=== PATIENT | female | born 1975 | race Two or more races ===

== ENCOUNTER 2019-11-25 19:44 | Emergency (ER) | payer MEDICAID, SELFPAY ==
[2019-11-25 20:15] VITALS: BP 120/80; PULSE 92; RESP 16; TEMP 36.9; O2SAT 97; BMI 47.0
[2019-11-25 21:41] LABS: Basophils Percent Auto 0.3 % (0-2); Eosinophils Absolute Auto 0.1 X10*3/uL (0.0-0.4); MANUAL DIFF FLAG SCAN; Mean Corpuscular Volume 87.6 fL (80-98); PLT CLUMP 1; Red Cell Distribution Width 15.3 % (11.0-16.0); SCAN SMEAR FLAG 1
[2019-11-25 21:41] LABS: Glucose Urine UA NEG (NEG); Leukocyte Esterase Urine 1+ (NEG); Nitrite Urine POS (NEG); PH 5.5 (5.0-8.0); Specific Gravity - Urine 1.025 (1.005-1.025); Urine Blood NEG (NEG); Urine Ketones NEG (NEG); Urine Protein NEG (NEG-TRACE)
[2019-11-25 21:42] LABS: Appearance Urine HAZY; Color Urine YELLOW
[2019-11-25 21:43] LABS: Hematocrit 38.1 % (37-47); Hemoglobin 12.6 g/dl (12.0-16.0); Imm Gran Abs Auto 0.01 X10*3/uL (0.00-0.03); Imm Gran Pct Auto 0.2 % (0.0-0.4); Lymphocytes Absolute Auto 2.2 X10*3/uL (1.2-4.9); Lymphocytes Percent Auto 37.5 % (20-40); Mean Corpuscular HGB Conc 33.1 g/dl (31.0-35.0); Mean Platelet Volume 11.3 fL (9.4-12.3); Monocytes Absolute Auto 0.3 X10*3/uL (0.1-1.2); Monocytes Percent Auto 4.4 % (2-11); Neutrophils Absolute Auto 3.3 X10*3/uL (2.0-8.3); Neutrophils Percent Auto 55.6 % (45-73); Platelet Count 109 X10*3/uL (160-400); Red Blood Count 4.35 X10*6/uL (4.20-5.50); White Blood Count 5.9 X10*3/uL (4.8-10.8)
[2019-11-25 21:44] LABS: UPreg QC Valid YES; Urine Pregnancy NEGATIVE (NEGATIVE)
[2019-11-25 21:48] LABS: Bacteria Urine 2+ /LPF; RBC Urine 0 /HPF (0); Squamous Epithelial Cell Urine 3+ /LPF
[2019-11-25 21:49] LABS: INTERNATIONAL NORM RATIO 1.1 (0.9-1.1); Prothrombin Time 13.1 SEC (10.8-13.0)
[2019-11-25 21:51] LABS: Partial Thromboplastin Time 32.6 SEC (24.1-38.0)
--- NOTE | 2019-11-25 21:57 | CT_ITS ---
EXAMINATION: CT ABDOMEN AND PELVIS WITHOUT CONTRAST CLINICAL INFORMATION: Abdominal pain. Question kidney stones.? Pyelonephritis COMPARISON: CT abdomen and pelvis from [facility] 05/19/2019 TECHNIQUE: Multidetector volumetric imaging was performed from the superior aspect of the liver through the pubic symphysis. Sagittal and coronal reformatted images were obtained on the technologist's workstation. This CT examination was performed using dose optimization techniques as appropriate, variously including the following: *Automated exposure control *Adjustment of mA and/or kV according to patient size (this includes techniques or standardized protocols for targeted exams where dose is matched to indication/reason for exam; i.e. extremities or head) *Use of iterative reconstruction technique DLP: 1224 mGy-cm FINDINGS: LUNG BASES: Lung bases are clear. Again seen are prominent anterior epicardial lymph nodes, present previously. LIVER, GALLBLADDER, AND BILIARY TREE: Liver has a nodular contour suggesting cirrhosis. No focal liver lesion seen. Gallbladder surgically absent. No biliary ductal dilatation. PANCREAS: Unremarkable. SPLEEN: The spleen is enlarged measuring up to 15.8 cm anterior to posterior ADRENAL GLANDS: Unremarkable. KIDNEYS AND URETERS: 2 mm left upper pole cortical calcification. 4 mm left mid renal cortical calcification. 3 to 4 mm linear calcification in the left mid kidney. 2 to 3 mm left lower pole calcification. There are areas of left renal cortical thinning consistent with areas of scarring. No hydronephrosis. No right hydronephrosis or renal calculi seen. Neither ureter is dilated and there are no ureteral calculi. BLADDER: No focal bladder wall thickening or calculi. GASTROINTESTINAL TRACT: Stomach and small bowel are nondilated. Normal appendix. No colonic wall thickening or pericolonic changes. ABDOMINAL WALL: No significant hernia is appreciated. LYMPH NODES: There are numerous lymph nodes present. There are paraesophageal lymph nodes in image 15/94. Numerous prominent but not pathologically enlarged retroperitoneal lymph nodes are present. There are numerous prominent jack hepatis lymph nodes as well. Numerous subcentimeter central mesenteric lymph nodes are present. These were generally present on the prior study 05/19/2019 but appears slightly increased in number. VASCULAR: Normal caliber abdominal aorta. There are likely splenic and gastric varices. PELVIC VISCERA: Normal CT appearance of the uterus. There is a 6.3 cm cyst in the left ovary. This has simple fluid density. No concerning internal features seen. OSSEOUS STRUCTURES: Multilevel degenerative changes of the thoracolumbar spine are present. Severe L5-S1 facet arthropathy. IMPRESSION: The liver has a nodular contour suggesting underlying cirrhosis. The spleen is enlarged. There are splenic and gastric varices in keeping with portal hypertension. There are several left renal calcification, many of which are more likely parenchymal than urinary tract calculi. No hydronephrosis or hydroureter is seen. There are areas of left renal cortical thinning and scarring, better seen on the contrast-enhanced CT scan from [facility] 05/19/2019. Numerous prominent but not pathologically enlarged retroperitoneal, jack hepatis, and central mesenteric lymph nodes are present. These are nonspecific, possibly reactive.
[2019-11-25 22:07] LABS: SLIDE REVIEW VERIFIED
[2019-11-25 22:16] LABS: Alanine Aminotransferase 15 U/L (0-31); Albumin Level 3.5 g/dL (3.5-5.0); Alkaline Phosphatase 131 U/L (39-117); Anion Gap 13 (12-20); Aspartate Amino Transferase 21 U/L (5-31); Bilirubin Direct 0.2 mg/dL (0.0-0.5); Bilirubin Total 0.4 mg/dL (0.0-1.0); Blood Urea Nitrogen 11 mg/dL (9-16); Calcium 8.6 mg/dL (8.4-10.2); Carbon Dioxide 25 mmol/L (22-29); Chloride 101 mmol/L (96-108); Creatinine Clr Calc Pharmacy 126.5; Estimated Glomerular Filt Rate > 60; Glucose Random 160 mg/dL (60-115); Lipase 76 U/L (8-78); Potassium 3.8 mmol/l (3.3-5.1); Sodium 135 mmol/L (135-145); Total Protein 7.3 g/dL (6.5-8.0)
[2019-11-25] MEDS: Ketorolac Tromethamine 30 MG/ML VIAL IVPUSH (22:44)
--- NOTE | 2019-11-26 00:33 | ED.ABDPAIN ---
HPI - Abdominal Pain General Chief Complaint: Abdominal Pain Stated Complaint: ABD PAIN Time Seen by Provider: 11/25/19 21:16 Source: patient Mode of arrival: ambulatory Limitations: no limitations History of Present Illness HPI narrative: Patient presents to the ED for right sided abdominal pain with dyuria for 4 days. patient states no nausea or emesis. patient states no fever or chills. patient state slight right sided flank pain. patient denies any recent trauma to abdomen or flanks. patient denies any vaginal discharge, vaginal bleeding, or vaginal lesions. MD elicited complaint: abdominal pain Pertinent past history: kidney stones Related Data Previous Rx's Medication Instructions Recorded cefpodoxime 100 mg PO BID #14 tab 11/26/19 naproxen 500 mg PO BID PRN #20 tab 11/26/19 Allergies Allergy/AdvReac Type Severity Reaction Status Date / Time acetaminophen [From TYLENOL] Allergy Unknown LIVER Verified 11/25/19 22:35 SWELLING Review of Systems Review of Systems Yes all other systems are reviewed and are negative Constitutional: Reports as per HPI and Reports no additional constitutional complaints Eyes: Reports as per HPI and Reports no additional eye complaints Reports system reviewed and no additional complaints, except as documented and Reports as per HPI Cardiovascular: Reports as per HPI and Reports no additional cardiovascular complaints Respiratory: Reports as per HPI and Reports no additional respiratory complaints Gastrointestinal: Reports as per HPI, Reports no additional gastrointestinal complaints and Reports abdominal pain Genitourinary: Reports no additional female genitourinary complaints and Reports dysuria Reports system reviewed and no additional complaints, except as documented and Reports as per HPI Psychiatric: Reports no additional psychiatric complaints and Reports as per HPI Physical Exam Vital Signs: Vital Signs: Vital Signs Temp Pulse Resp BP Pulse Ox 11/25/19 20:15 98.4 F 92 16 120/80 97 Body Mass Index 47.0 Const: General: cooperative, healthy appearing, comfortable and no acute distress Orientation/consciousness: oriented to person, oriented to place, oriented to time and patient oriented x3 HENMT: Head: Yes normal to inspection Eyes: General: appearance normal, both eyes and all related structures Neck: Neck: Yes normal visual inspection, Yes full ROM and Yes no lymphadenopathy Chest: Chest palpation & inspection: normal inspection of the chest and normal palpation of entire chest wall Resp: Effort & Inspection: normal respiratory effort and able to speak in complete sentences Cardio: Jugular venous distension: no JVD Rhythm: regular rhythm Heart sounds: S1 normal heart sound present and S2 normal heart sound present GI: Inspection: Yes normal to inspection, No abdominal wall ecchymosis and No Abdominal wall edema Palpation (GI): Soft to palpation, Tenderness to palpation present (GI) in the RLQ, no guarding and not rigid Percussion: Yes normal to percussion and Yes dullness to percussion Auscultation: normal bowel sounds : General: No CVA tenderness and Yes no CVA tenderness Back/Spine/Pelvis: Back: no CVA tenderness, No CVA tenderness and No back tenderness Skin: General skin exam: no rashes or lesions noted Neuro: General: oriented to person, oriented to place, oriented to time, patient oriented x3 and CN's II-XI intact bilaterally Cranial nerves: Yes CN's II-XII intact bilaterally Extrem: General: Yes normal to inspection Course Course Course Narrative: Patient will have labs, pain, and abdominal CT scan to rule out kidnye stones Reevaluation(s) Reevaluation #1: UA positive for UTI. Abdominal CT scan negative for kidney stones or fat stranding to indicate pyelonephritis Time: 00:40 MDM - Abdominal Pain MDM Narrative Medical decision making narrative: patient has a UTI and will be discharged with antibiotics. Lab Data Result diagrams: 11/25/19 21:34 11/25/19 21:33 Labs: Lab Results 11/25/19 11/25/19 11/25/19 Range/Units 21:33 21:33 21:34 WBC 5.9 (4.8-10.8) X10*3/uL RBC 4.35 (4.20-5.50) X10*6/uL Hgb 12.6 (12.0-16.0) g/dl Hct 38.1 (37-47) % MCV 87.6 (80-98) fL MCH 29.0 (27.0-33.0) pg MCHC 33.1 (31.0-35.0) g/dl RDW 15.3 (11.0-16.0) % Plt Count 109 L (160-400) X10*3/uL MPV 11.3 (9.4-12.3) fL Immature Gran % (Auto) 0.2 (0.0-0.4) % Neut % (Auto) 55.6 (45-73) % Lymph % (Auto) 37.5 (20-40) % [place] % (Auto) 4.4 (2-11) % Eos % (Auto) 2.0 (0-4) % Baso % (Auto) 0.3 (0-2) % Lymph # (Auto) 2.2 (1.2-4.9) X10*3/uL [place] # (Auto) 0.3 (0.1-1.2) X10*3/uL Eos # (Auto) 0.1 (0.0-0.4) X10*3/uL Baso # (Auto) 0.0 (0.0-0.2) X10*3/uL Abs Immat Gran (auto) 0.01 (0.00-0.03) X10*3/uL Absolute Neuts (auto) 3.3 (2.0-8.3) X10*3/uL Absolute Nucleated RBC 0.000 (0.0-0.012) X10*3/uL Nucleated RBC % (auto) 0.0 (0.0-0.2) /100WBC Smear Tech's Comments VERIFIED PT (10.8-13.0) SEC INR (0.9-1.1) APTT (24.1-38.0) SEC Sodium 135 (135-145) mmol/L Potassium 3.8 (3.3-5.1) mmol/l Chloride 101 (96-108) mmol/L Carbon Dioxide 25 (22-29) mmol/L Anion Gap 13 (12-20) BUN 11 (9-16) mg/dL Creatinine 0.81 (0.5-1.4) mg/dL Estim Creat Clear Calc 126.5 Estimated GFR > 60 Random Glucose 160 H (60-115) mg/dL Calcium 8.6 (8.4-10.2) mg/dL Total Bilirubin 0.4 (0.0-1.0) mg/dL Direct Bilirubin 0.2 (0.0-0.5) mg/dL AST 21 (5-31) U/L ALT 15 (0-31) U/L Alkaline Phosphatase 131 H (39-117) U/L Total Protein 7.3 (6.5-8.0) g/dL Albumin 3.5 (3.5-5.0) g/dL Lipase 76 (8-78) U/L Urine Color YELLOW Urine Appearance HAZY Urine pH 5.5 (5.0-8.0) Ur Specific [place] 1.025 (1.005-1.025) Urine Protein NEG (NEG-TRACE) MG/DL Urine Glucose (UA) NEG (NEG) MG/DL Urine Ketones NEG (NEG) MG/DL Urine Blood NEG (NEG) Urine Nitrite POS H (NEG) Ur Leukocyte Esterase 1+ H (NEG) Urine RBC 0 (0) /HPF Urine WBC 1-4 (0-4) /HPF Ur Squamous Epith Cells 3+ /LPF Urine Bacteria 2+ /LPF Urine Test NEGATIVE (NEGATIVE) 11/25/19 Range/Units 21:34 WBC (4.8-10.8) X10*3/uL RBC (4.20-5.50) X10*6/uL Hgb (12.0-16.0) g/dl Hct (37-47) % MCV (80-98) fL MCH (27.0-33.0) pg MCHC (31.0-35.0) g/dl RDW (11.0-16.0) % Plt Count (160-400) X10*3/uL MPV (9.4-12.3) fL Immature Gran % (Auto) (0.0-0.4) % Neut % (Auto) (45-73) % Lymph % (Auto) (20-40) % [place] % (Auto) (2-11) % Eos % (Auto) (0-4) % Baso % (Auto) (0-2) % Lymph # (Auto) (1.2-4.9) X10*3/uL [place] # (Auto) (0.1-1.2) X10*3/uL Eos # (Auto) (0.0-0.4) X10*3/uL Baso # (Auto) (0.0-0.2) X10*3/uL Abs Immat Gran (auto) (0.00-0.03) X10*3/uL Absolute Neuts (auto) (2.0-8.3) X10*3/uL Absolute Nucleated RBC (0.0-0.012) X10*3/uL Nucleated RBC % (auto) (0.0-0.2) /100WBC Smear Tech's Comments PT 13.1 H (10.8-13.0) SEC INR 1.1 (0.9-1.1) APTT 32.6 (24.1-38.0) SEC Sodium (135-145) mmol/L Potassium (3.3-5.1) mmol/l Chloride (96-108) mmol/L Carbon Dioxide (22-29) mmol/L Anion Gap (12-20) BUN (9-16) mg/dL Creatinine (0.5-1.4) mg/dL Estim Creat Clear Calc Estimated GFR Random Glucose (60-115) mg/dL Calcium (8.4-10.2) mg/dL Total Bilirubin (0.0-1.0) mg/dL Direct Bilirubin (0.0-0.5) mg/dL AST (5-31) U/L ALT (0-31) U/L Alkaline Phosphatase (39-117) U/L Total Protein (6.5-8.0) g/dL Albumin (3.5-5.0) g/dL Lipase (8-78) U/L Urine Color Urine Appearance Urine pH (5.0-8.0) Ur Specific [place] (1.005-1.025) Urine Protein (NEG-TRACE) MG/DL Urine Glucose (UA) (NEG) MG/DL Urine Ketones (NEG) MG/DL Urine Blood (NEG) Urine Nitrite (NEG) Ur Leukocyte Esterase (NEG) Urine RBC (0) /HPF Urine WBC (0-4) /HPF Ur Squamous Epith Cells /LPF Urine Bacteria /LPF Urine Test (NEGATIVE) Discharge Plan Discharge Clinical Impression: UTI (urinary tract infection) Qualifiers: Urinary tract infection type: acute cystitis Patient Disposition: Home, Self-Care Instructions: Urinary Tract Infection in Women (ED) Additional Instructions: Return to the ED for any fever, chills, nausea, vomitting, flank pain, altered mental status , weakness, inability to tolerate solid foods/liquid, or any other concerning symptoms. Prescriptions: New cefpodoxime 100 mg tablet 100 mg PO BID Qty: 14 RF: 0 naproxen 500 mg tablet 500 mg PO BID PRN (Reason: pain) Qty: 20 RF: 0 Referrals: Filomena Caceres MD [Physician] - 2 days (UTI. Also abdominal CT scan shows cirrhosis and portal hypertension. Patient will need referral to GI.) Jabari Dumont [Physician] - 2 days (CT scan shows cirrhosis and portal hypertension) [facility] Past Medical History Medical History (Updated 11/26/19 @ 00:43 by ANTONETTE Colvin) Asthma Diabetes Enlarged liver Hernia Migraine Spleen enlarged Social History Social History Advance Directives: No Advance Directives Information Provided: No
[2019-11-26 01:07] VITALS: BP 126/72; PULSE 83; RESP 18; TEMP 37.2; O2SAT 96
== END 2019-11-26 01:18 | disposition home or self-care (01) ==
PROVIDERS: Physician Assistant; Emergency Provider Emergency Medicine
DX: N30.00 Acute cystitis without hematuria (principal); E11.9 Type 2 diabetes mellitus without complications; R93.5 Abnormal findings on diagnostic imaging of other abdominal regions, including retroperitoneum; K74.60 Unspecified cirrhosis of liver; K76.6 Portal hypertension
CPT/HCPCS: 36415; 74176; 80053; 80076; 81001; 81025; 83690; 85025; 85610; 85730; 87086; 87088; 87186; 96374; 99284; J1885

== ENCOUNTER 2020-03-24 16:59 | Emergency (ER) | payer MEDICAID, SELFPAY ==
--- NOTE | ~2020-03-24 | CT_ITS ---
EXAMINATION: CT ABDOMEN AND PELVIS WITHOUT CONTRAST CLINICAL INFORMATION: right side abd pain . COMPARISON: No pertinent prior studies are available for comparison. TECHNIQUE: Multidetector volumetric imaging was performed from the superior aspect of the liver through the pubic symphysis without contrast per renal stone protocol. Sagittal and coronal reformatted images were obtained on the technologist workstation. This CT examination was performed using dose optimization techniques as appropriate, variously including the following: *Automated exposure control *Adjustment of mA and/or kV according to patient size (this includes techniques or standardized protocols for targeted exams where dose is matched to indication/reason for exam; i.e. extremities or head) *Use of iterative reconstruction technique DLP: 1296 mGy-cm. FINDINGS: LUNG BASES: The visualized lung bases are unremarkable. LIVER, GALLBLADDER, BILIARY TREE: Nodular contour to the liver but no focal mass lesion appreciated on this noncontrast study. Gallbladder surgically absent. PANCREAS: Unremarkable. SPLEEN: Splenomegaly measuring 21.4 cm in length ADRENAL GLANDS: Unremarkable. KIDNEYS AND URETERS: Punctate intrarenal calculi again seen in the left kidney. No hydronephrosis or hydroureter. No ureteric calculi. No perinephric stranding. BLADDER: Unremarkable. GASTROINTESTINAL TRACT: Colon is mostly decompressed. Normal-appearing appendix in the right lower quadrant. Small bowel is well to assess on this noncontrast exam proximal small bowel is to the right of midline suggesting the possibility of underlying small bowel malrotation of no acute significance. ABDOMINAL WALL: Mild diastases of the rectus abdominis muscles inferiorly similar to the prior study LYMPHOVASCULAR STRUCTURES: Small retroperitoneal lymph nodes again seen but no bulky lymphadenopathy. The aorta is unremarkable.. PELVIC VISCERA: Anteroverted uterus with bilateral adnexal fullness decreased on the left increased on the right when compared to the 11/25/2019 study. This is more likely physiologic. OSSEUS STRUCTURES: Unremarkable. CT/CT abdomen pelvis wo con IMPRESSION: Nodular appearing liver with splenomegaly. I do not appreciate any discrete hepatic lesion. There are chronic appearing changes and physiologic changes but do not appreciate any definitive acute superimposed process..
[2020-03-24 17:32] VITALS: BP 138/79; PULSE 112; RESP 22; TEMP 37.3; O2SAT 97; BMI 47.4
[2020-03-24 19:39] VITALS: BP 134/88; PULSE 97; RESP 22; TEMP 36.9; O2SAT 97
[2020-03-24 20:04] LABS: MANUAL DIFF FLAG NO
--- NOTE | 2020-03-24 20:04 | PC.NURSE ---
Pt ambulated to room w/ steady and baird gait, no guarding or grimacing. holding large [employer] beverage in hand, no active vomiting noted. Pending provider eval.
[2020-03-24 20:05] LABS: Basophils Percent Auto 0.4 % (0-2); Eosinophils Absolute Auto 0.2 X10*3/uL (0.0-0.4); Eosinophils Percent Auto 1.9 % (0-4); Hematocrit 40.5 % (37-47); Hemoglobin 13.4 g/dl (12.0-16.0); Imm Gran Abs Auto 0.02 X10*3/uL (0.00-0.03); Imm Gran Pct Auto 0.3 % (0.0-0.4); Lymphocytes Absolute Auto 2.5 X10*3/uL (1.2-4.9); Lymphocytes Percent Auto 32.2 % (20-40); Mean Corpuscular HGB Conc 33.1 g/dl (31.0-35.0); Mean Corpuscular Hemoglobin 28.4 pg (27.0-33.0); Mean Corpuscular Volume 85.8 fL (80-98); Mean Platelet Volume 11.4 fL (9.4-12.3); Monocytes Absolute Auto 0.3 X10*3/uL (0.1-1.2); Monocytes Percent Auto 4.3 % (2-11); Neutrophils Absolute Auto 4.8 X10*3/uL (2.0-8.3); Neutrophils Percent Auto 60.9 % (45-73); Platelet Count 161 X10*3/uL (160-400); Red Blood Count 4.72 X10*6/uL (4.20-5.50); Red Cell Distribution Width 15.5 % (11.0-16.0); White Blood Count 7.9 X10*3/uL (4.8-10.8)
[2020-03-24 20:11] VITALS: BP 114/70; PULSE 87; RESP 22; TEMP 36.7; O2SAT 98
[2020-03-24 20:29] LABS: Alanine Aminotransferase 20 U/L (0-31); Albumin Level 3.8 g/dL (3.5-5.0); Alkaline Phosphatase 147 U/L (39-117); Anion Gap 15 (12-20); Aspartate Amino Transferase 29 U/L (5-31); Bilirubin Total 0.4 mg/dL (0.0-1.0); Blood Urea Nitrogen 13 mg/dL (9-16); Calcium 9.1 mg/dL (8.4-10.2); Carbon Dioxide 22 mmol/L (22-29); Chloride 104 mmol/L (96-108); Creatinine Clr Calc Pharmacy 113.3; Estimated Glomerular Filt Rate > 60; Glucose Random 228 mg/dL (60-115); Lipase 41 U/L (8-78); Potassium 4.5 mmol/L (3.3-5.1); Sodium 136 mmol/L (135-145)
--- NOTE | 2020-03-24 20:38 | ED_ITS ---
HPI - Abdominal Pain General Chief Complaint: Abdominal Pain Stated Complaint: abd pain Time Seen by Provider: 03/24/20 20:37 Source: patient Mode of arrival: ambulatory Limitations: no limitations History of Present Illness HPI narrative: 44-year-old female history of chronic abdominal pain presented with 1 week of worsening of her regular abdominal pain, described pain is been worsening for 1 week, pain is constant, localized to the right upper quadrant area, no radiation of the pain, no other associated symptoms with the pain, nothing makes the pain better, nothing make it worse. Patient live with chronic abdominal pain in the process of seeing new PCP. Related Data Previous Rx's Medication Instructions Recorded cefpodoxime 100 mg PO BID #14 tab 11/26/19 naproxen 500 mg PO BID PRN #20 tab 11/26/19 Allergies Allergy/AdvReac Type Severity Reaction Status Date / Time acetaminophen [From TYLENOL] Allergy Unknown LIVER Verified 11/25/19 22:35 SWELLING Review of Systems Review of Systems All other systems are reviewed and are negative Constitutional: Reports as per HPI and Reports no additional constitutional complaints Eyes: Reports as per HPI and Reports no additional eye complaints Reports system reviewed and no additional complaints, except as documented Cardiovascular: Reports as per HPI and Reports no additional cardiovascular complaints Respiratory: Reports as per HPI and Reports no additional respiratory complaints Gastrointestinal: Reports as per HPI and Reports no additional gastrointestinal complaints Genitourinary: Reports no additional female genitourinary complaints Musculoskeletal: Reports no additional musculoskeletal complaints Skin/Breast: Reports system reviewed and no additional complaints, except as docu Psychiatric: Reports no additional psychiatric complaints Endocrine: Reports no additional endocrine complaints Hematologic/Lymphatic: Reports no additional hematologic/lymphatic complaints Allergic/Immunologic: Reports no additional allergic/immunologic complaints Reports system reviewed and no additional complaints, except as documented and Reports Abnormal speech present Physical Exam Vital Signs: Vital Signs: Last Vital Signs Temp 98.1 F 03/24/20 22:44 Pulse 85 03/24/20 22:44 Resp 18 03/24/20 22:44 BP 106/68 03/24/20 22:44 Pulse Ox 96 03/24/20 22:44 Body Mass Index 47.4 Vital signs have been reviewed as normal and appeared to be correct. Blood pressure normal. Heart rate normal. Respiration rate normal. Temperature normal. Oxygen saturation normal. Appearance: Alert. Oriented X3. No acute distress. Head: Normal external exam. Normocephalic. Atraumatic. No [place] signs noted. No raccoon eyes noted Eyes: PERRLA. EOMI. Conjunctiva and sclera normal. Eyelids normal. ENT: EAC normal. TM's Normal. Pharynx normal. Uvula midline. Moist mucous membranes. No trismus noted. No drooling noted. No muffled voice noted. Neck: Normal inspection. Neck supple. FROM. No adenopathy. Thyroid Normal. No meningeal signs. No neck mass noted. CVS: Normal heart rate and rhythm. Heart sound normal. No murmurs noted. Pulses normal throughout. Respiratory: No respiratory distress. Painless inspiration. Breath sounds normal. No wheezes/rales/rhonchi noted. Chest nontender. No accessory muscle usage noted or decreased air movement noted. Abdomen: Soft and nontender. Bowel sounds normal in all 4 quadrants. No distention noted. No organomegaly noted. No visible injury noted. Back: No CVA tenderness. Full range of motion noted. Skin: Skin warm and dry. Normal skin color. Normal skin turgor. No rashes/lesions/lacerations noted. Extremities: No lower extremity edema. Extremities exhibit normal range of motion. Extremities nontender. Neuro: Oriented X 3. No motor deficit. No sensory deficit. Reflexes normal. Course Course Course Narrative: 44-year-old female with chronic abdominal pain, patient process with new PCP for chronic abdominal pain workup, patient showed UTI in the emergency department but no sign of SIRS. Will start the patient on cefuroxime instructed to drink plenty of fluids and follow-up with PCP. MDM - Abdominal Pain Lab Data Attestation: I reviewed the patient's lab results. Result diagrams: 03/24/20 19:45 03/24/20 19:45 Labs: Lab Results 03/24/20 03/24/20 03/24/20 Range/Units 19:45 19:45 19:45 WBC 7.9 (4.8-10.8) X10*3/uL RBC 4.72 (4.20-5.50) X10*6/uL Hgb 13.4 (12.0-16.0) g/dl Hct 40.5 (37-47) % MCV 85.8 (80-98) fL MCH 28.4 (27.0-33.0) pg MCHC 33.1 (31.0-35.0) g/dl RDW 15.5 (11.0-16.0) % Plt Count 161 D (160-400) X10*3/uL MPV 11.4 (9.4-12.3) fL Immature Gran % (Auto) 0.3 (0.0-0.4) % Neut % (Auto) 60.9 (45-73) % Lymph % (Auto) 32.2 (20-40) % [place] % (Auto) 4.3 (2-11) % Eos % (Auto) 1.9 (0-4) % Baso % (Auto) 0.4 (0-2) % Lymph # (Auto) 2.5 (1.2-4.9) X10*3/uL [place] # (Auto) 0.3 (0.1-1.2) X10*3/uL Eos # (Auto) 0.2 (0.0-0.4) X10*3/uL Baso # (Auto) 0.0 (0.0-0.2) X10*3/uL Abs Immat Gran (auto) 0.02 (0.00-0.03) X10*3/uL Absolute Neuts (auto) 4.8 (2.0-8.3) X10*3/uL Absolute Nucleated RBC 0.000 (0.0-0.012) X10*3/uL Nucleated RBC % (auto) 0.0 (0.0-0.2) /100WBC Hold Blue Top SEE NOTE Sodium 136 (135-145) mmol/L Potassium 4.5 (3.3-5.1) mmol/L Chloride 104 (96-108) mmol/L Carbon Dioxide 22 (22-29) mmol/L Anion Gap 15 (12-20) BUN 13 (9-16) mg/dL Creatinine 0.91 (0.5-1.4) mg/dL Estim Creat Clear Calc 113.3 Estimated GFR > 60 Random Glucose 228 H D (60-115) mg/dL Calcium 9.1 (8.4-10.2) mg/dL Total Bilirubin 0.4 (0.0-1.0) mg/dL AST 29 (5-31) U/L ALT 20 (0-31) U/L Alkaline Phosphatase 147 H (39-117) U/L Total Protein 8.0 (6.5-8.0) g/dL Albumin 3.8 (3.5-5.0) g/dL Lipase 41 (8-78) U/L Urine Color Urine Appearance Urine pH (5.0-8.0) Ur Specific [place] (1.005-1.025) Urine Protein (NEG-TRACE) MG/DL Urine Glucose (UA) (NEG) MG/DL Urine Ketones (NEG) MG/DL Urine Blood (NEG) Urine Nitrite (NEG) Ur Leukocyte Esterase (NEG) Urine RBC (0) /HPF Urine WBC (0-4) /HPF Ur Squamous Epith Cells /LPF Urine Bacteria /LPF Urine Mucus /LPF 03/24/20 Range/Units 21:49 WBC (4.8-10.8) X10*3/uL RBC (4.20-5.50) X10*6/uL Hgb (12.0-16.0) g/dl Hct (37-47) % MCV (80-98) fL MCH (27.0-33.0) pg MCHC (31.0-35.0) g/dl RDW (11.0-16.0) % Plt Count (160-400) X10*3/uL MPV (9.4-12.3) fL Immature Gran % (Auto) (0.0-0.4) % Neut % (Auto) (45-73) % Lymph % (Auto) (20-40) % [place] % (Auto) (2-11) % Eos % (Auto) (0-4) % Baso % (Auto) (0-2) % Lymph # (Auto) (1.2-4.9) X10*3/uL [place] # (Auto) (0.1-1.2) X10*3/uL Eos # (Auto) (0.0-0.4) X10*3/uL Baso # (Auto) (0.0-0.2) X10*3/uL Abs Immat Gran (auto) (0.00-0.03) X10*3/uL Absolute Neuts (auto) (2.0-8.3) X10*3/uL Absolute Nucleated RBC (0.0-0.012) X10*3/uL Nucleated RBC % (auto) (0.0-0.2) /100WBC Hold Blue Top Sodium (135-145) mmol/L Potassium (3.3-5.1) mmol/L Chloride (96-108) mmol/L Carbon Dioxide (22-29) mmol/L Anion Gap (12-20) BUN (9-16) mg/dL Creatinine (0.5-1.4) mg/dL Estim Creat Clear Calc Estimated GFR Random Glucose (60-115) mg/dL Calcium (8.4-10.2) mg/dL Total Bilirubin (0.0-1.0) mg/dL AST (5-31) U/L ALT (0-31) U/L Alkaline Phosphatase (39-117) U/L Total Protein (6.5-8.0) g/dL Albumin (3.5-5.0) g/dL Lipase (8-78) U/L Urine Color DARK YELLOW Urine Appearance HAZY Urine pH 5.5 (5.0-8.0) Ur Specific [place] >= 1.030 H (1.005-1.025) Urine Protein TRACE (NEG-TRACE) MG/DL Urine Glucose (UA) NEG (NEG) MG/DL Urine Ketones NEG (NEG) MG/DL Urine Blood NEG (NEG) Urine Nitrite POS H (NEG) Ur Leukocyte Esterase 1+ H (NEG) Urine RBC 0-2 (0) /HPF Urine WBC 30-49 H (0-4) /HPF Ur Squamous Epith Cells 1+ /LPF Urine Bacteria 4+ /LPF Urine Mucus TRACE /LPF Imaging Data CT scan - abdomen: Radiologist's impression: Nodular appearing liver with splenomegaly. I do not appreciate any discrete hepatic lesion. There are chronic appearing changes and physiologic changes but do not appreciate any definitive acute superimposed process.. Discharge Plan Discharge Prescriptions: No Action cefpodoxime 100 mg tablet 100 mg PO BID Qty: 14 RF: 0 naproxen 500 mg tablet 500 mg PO BID PRN (Reason: pain) Qty: 20 RF: 0 PMFSH Past Medical History Medical History Asthma delivery delivered Cholecystectomy planned Cirrhosis Diabetes Enlarged liver Hernia Migraine Spleen enlarged Social History Social History Alcohol intake: never Smoking Status: Current every day smoker Smoked in Last 30 Days: Yes Use of substances other than those prescribed or required for medical reasons: Yes Substance Use Type: Marijuana Advance Directives: No Advance Directives Information Provided: Yes
[2020-03-24] MEDS: 0.9 % Sodium Chloride 1,000 ML 999 ML IVCONT (20:53)
[2020-03-24 22:04] VITALS: BP 109/61; PULSE 91; RESP 20; TEMP 36.6; O2SAT 97
[2020-03-24] MEDS: Ketorolac Tromethamine 15 MG/ML VIAL IV (22:04)
[2020-03-24 22:37] LABS: Glucose Urine UA NEG (NEG); Leukocyte Esterase Urine 1+ (NEG); Nitrite Urine POS (NEG); PH 5.5 (5.0-8.0); Specific Gravity - Urine >= 1.030 (1.005-1.025); UACC Culture Trigger YES; Urine Blood NEG (NEG); Urine Ketones NEG (NEG); Urine Protein TRACE MG/DL (NEG-TRACE)
[2020-03-24 22:38] LABS: Appearance Urine HAZY; Color Urine DARK YELLOW
[2020-03-24 22:44] VITALS: BP 106/68; PULSE 85; RESP 18; TEMP 36.7; O2SAT 96
[2020-03-24 22:51] LABS: RBC Urine 0-2 /HPF (0); Squamous Epithelial Cell Urine 1+ /LPF; WBC Urine 30-49 /HPF (0-4)
[2020-03-24 22:52] LABS: Bacteria Urine 4+ /LPF; Mucus Urine TRACE /LPF
[2020-03-24 23:44] VITALS: BP 106/68; PULSE 83; RESP 18; TEMP 36.4; O2SAT 98
[2020-03-24] MEDS: oxyCODONE HCl Immed Release 5 MG TABLET PO (23:45)
== END 2020-03-25 00:29 | disposition home or self-care (01) ==
PROVIDERS: Emergency Provider Emergency Medicine; PCP Nurse Practitioner
DX: R10.11 Right upper quadrant pain (principal); G89.29 Other chronic pain; N39.0 Urinary tract infection, site not specified; N20.0 Calculus of kidney; R16.1 Splenomegaly, not elsewhere classified; K74.60 Unspecified cirrhosis of liver; E11.9 Type 2 diabetes mellitus without complications
CPT/HCPCS: 36415; 74176; 80053; 81001; 81003; 83690; 85025; 87086; 87088; 87186; 96361; 96374; 99284; J1885

== ENCOUNTER → 2020-05-11 13:11 | Outpatient (BNVA) | payer MEDICAID, SELFPAY | PROVIDERS: PCP Nurse Practitioner; Visit Provider Physician Assistant ==

== ENCOUNTER 2020-06-21 23:59 | Emergency (ER) | payer MEDICAID, SELFPAY ==
--- NOTE | ~2020-06-21 | US_ITS ---
EXAMINATION: US ABDOMEN LIMITED CLINICAL INFORMATION: 2.3 cm round hypodense hepatic lesion on CT. COMPARISON: CT abdomen and pelvis exam 06/22/2020. TECHNIQUE: Real-time imaging of the right upper quadrant abdominal viscera. FINDINGS: PANCREAS: The head and the body of the pancreas are echogenic and heterogenous. The tail of the pancreas is not visualized. LIVER: The liver is normal in size. The liver contour is lobulated. Parenchymal echogenicity is increased. There is a hypoechoic lesion in the right hepatic lobe measuring 1.4 x 1.3 x 1.6 cm. There is no intrahepatic biliary duct dilatation seen. GALLBLADDER: The gallbladder has been surgically removed. COMMON BILE DUCT: Normal in caliber measuring 0.7 cm in diameter. RIGHT KIDNEY: There is mild pelvic fullness. No renal calculi or focal parenchymal lesions. The kidney measures 12.4 cm in maximum dimension. FREE FLUID: None. US/US abdomen limited IMPRESSION: Hypoechoic lesion right hepatic lobe corresponding to CT finding. It is not cystic. Differential diagnoses includes adenoma, atypical hemangioma. Correlated with MRI liver. Lobulated echogenic liver, likely secondary to cirrhosis. Mild pelvic fullness.
--- NOTE | ~2020-06-21 | XR_ITS ---
EXAMINATION: XR CHEST CLINICAL INFORMATION: Shortness of breath COMPARISON: 06/23/2019 TECHNIQUE: Frontal view of the chest was obtained. FINDINGS: Cardiac leads overlie the chest. The lungs are well expanded. There is no focal consolidation, edema, or effusion. No pneumothorax. The cardiomediastinal silhouette is within normal limits. No acute osseous abnormality. XR/XR chest 1V IMPRESSION: Clear lungs.
--- NOTE | ~2020-06-21 | CT_ITS ---
EXAMINATION: CT ABDOMEN AND PELVIS WITH CONTRAST CLINICAL INFORMATION: Epigastric abdominal pain. COMPARISON: Abdomen and pelvic CT of 03/24/2020 and multiple previous abdomen and pelvic CT scans dated back to 05/08/2008. TECHNIQUE: Multidetector volumetric images were obtained from the superior aspect of the liver through the pubic symphysis following administration 85 mL of Omnipaque 350 intravenous contrast. Sagittal and coronal reformatted images were obtained on the technologist's workstation. Oral contrast: No This CT examination was performed using dose optimization techniques as appropriate, variously including the following: *Automated exposure control *Adjustment of mA and/or kV according to patient size (this includes techniques or standardized protocols for targeted exams where dose is matched to indication/reason for exam; i.e. extremities or head) *Use of iterative reconstruction technique DLP: 1773 mGy-cm FINDINGS: LUNG BASES: The visualized lung bases are unremarkable. LIVER, GALLBLADDER, AND BILIARY TREE: The liver is mildly prominent in size. Liver contour nodularity is again noted. There is a round hypodense lesion in the hepatic segment 8 measuring 2.3 cm which is not seen on the previous studies. The Hounsfield units of this lesion is -21.62. The gallbladder is surgically absent. No biliary ductal dilatation. PANCREAS: The pancreas enhances normally. No peripancreatic stranding or fluid. No evidence of pancreatic parenchymal calcifications or pancreatic ductal dilatation. No focal pancreatic mass is noted. SPLEEN: Note is again made of enlarged spleen which measures 21 cm in craniocaudal dimension. No focal splenic lesion is seen. Splenule at the inferior aspect of the spleen medially adjacent to the pancreatic tail is again noted. ADRENAL GLANDS: Unremarkable. KIDNEYS AND URETERS: The kidneys are normal in size, shape and attenuation. No evidence of hydroureteronephrosis or perinephric stranding. Lobularity of the renal contours is again noted. At least 5 small nonobstructing calcifications in the left kidney are demonstrated ranging from punctate to 0.4 cm. BLADDER: Unremarkable. 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 The small bowel is not dilated. The stomach is mildly distended; however, grossly unremarkable. The colon is normal in caliber without evidence of colonic wall thickening or pericolic fat stranding. An appendix is normal. ABDOMINAL WALL: No significant hernia is appreciated. LYMPH NODES: Scattered subcentimeter retroperitoneal lymph nodes are again noted. No evidence of pathologically enlarged lymph nodes. VASCULAR: The intra and extra hepatic portal venous system, splenic vein and SMV are well patent. The aortoiliac vessels are normal in caliber and well patent. PELVIC VISCERA: Unremarkable. OSSEOUS STRUCTURES: Stable. No acute or suspicious osseous lesions. Facet arthropathy at L5-S1 and mild degenerative changes in the visualized lower thoracic spine. CT/CT abdomen pelvis w con IMPRESSION: 1. No acute abnormality noted. Normal CT appearance of the pancreas. 2. Nodular liver contour with splenomegaly. Recommend correlation with underlying history of liver parenchymal disease/cirrhosis. 3. A new 2.3 cm round hypodense hepatic lesion in the segment 8 is indeterminate. Recommend focused ultrasound correlation. If ultrasound is not conclusive further evaluation with MRI will be needed for better characterization of this lesion. 4. Multiple nonobstructing left renal calcifications.
[2020-06-22] VITALS (7 sets, daily range): BP systolic 124–187; BP diastolic 79–93; PULSE 67–93; RESP 15–18; TEMP 36.7–36.8; O2SAT 97–100; BMI 47.4
--- NOTE | 2020-06-22 | ECG_ITS ---
Test Reason : DIZZINESS Blood Pressure : / mmHG Vent. Rate : 086 BPM Atrial Rate : 086 BPM P-R Int : 146 ms QRS Dur : 082 ms QT Int : 344 ms P-R-T Axes : 007 -08 -02 degrees QTc Int : 411 ms Normal sinus rhythm Voltage criteria for left ventricular hypertrophy Abnormal ECG When compared with ECG of 02-FEB-2007 11:20, No significant change was found Referred By: Generic ED Physician Electronically Signed By:MEDINA DELGADILLO MD
[2020-06-22 00:57] LABS: Glucose, Whole Blood 374 mg/dL (60-115)
--- NOTE | 2020-06-22 02:38 | PC.NURSE ---
UA obtained and sent.
[2020-06-22 02:46] LABS: Glucose Urine UA >=1000 MG/DL (NEG); Leukocyte Esterase Urine NEG (NEG); Nitrite Urine NEG (NEG); Urine Blood NEG (NEG); Urine Ketones NEG (NEG); Urine Protein NEG (NEG-TRACE)
[2020-06-22 02:47] LABS: Appearance Urine HAZY; Color Urine YELLOW
[2020-06-22 02:55] LABS: Bacteria Urine 2+ /LPF; RBC Urine 0-2 /HPF (0); Squamous Epithelial Cell Urine 3+ /LPF
[2020-06-22 03:43] LABS: Basophils Percent Auto 0.6 % (0-2); Imm Gran Abs Auto 0.01 X10*3/uL (0.00-0.03); Imm Gran Pct Auto 0.2 % (0.0-0.4); Mean Corpuscular Volume 84.8 fL (80-98); Neutrophils Percent Auto 49.8 % (45-73); PLT CLUMP 1; SCAN SMEAR FLAG 1
--- NOTE | 2020-06-22 03:44 | PC.NURSE ---
IV established, labs obtained and sent. EKG obtained by this RN. Awaiting primary MD yang.
[2020-06-22 03:45] LABS: Eosinophils Absolute Auto 0.1 X10*3/uL (0.0-0.4); Eosinophils Percent Auto 2.2 % (0-4); Hematocrit 36.7 % (37-47); Hemoglobin 11.9 g/dl (12.0-16.0); Lymphocytes Absolute Auto 2.3 X10*3/uL (1.2-4.9); Lymphocytes Percent Auto 42.6 % (20-40); MANUAL DIFF FLAG NO; Mean Corpuscular HGB Conc 32.4 g/dl (31.0-35.0); Mean Corpuscular Hemoglobin 27.5 pg (27.0-33.0); Mean Platelet Volume 10.8 fL (9.4-12.3); Monocytes Absolute Auto 0.3 X10*3/uL (0.1-1.2); Monocytes Percent Auto 4.6 % (2-11); Neutrophils Absolute Auto 2.7 X10*3/uL (2.0-8.3); Platelet Count 125 X10*3/uL (160-400); Red Blood Count 4.33 X10*6/uL (4.20-5.50); Red Cell Distribution Width 16.3 % (11.0-16.0); White Blood Count 5.4 X10*3/uL (4.8-10.8)
[2020-06-22 04:11] LABS: Troponin-I High Sensitivity < 3.5 ng/L (<3.5-17.0)
[2020-06-22 04:16] LABS: Alanine Aminotransferase 30 U/L (0-31); Albumin Level 3.5 g/dL (3.5-5.0); Alkaline Phosphatase 165 U/L (39-117); Anion Gap 13 (12-20); Aspartate Amino Transferase 27 U/L (5-31); Bilirubin Total 0.3 mg/dL (0.0-1.0); Blood Urea Nitrogen 13 mg/dL (9-16); Calcium 9.2 mg/dL (8.4-10.2); Carbon Dioxide 24 mmol/L (22-29); Chloride 97 mmol/L (96-108); Creatinine Clr Calc Pharmacy 92.8; Estimated Glomerular Filt Rate 53; Glucose Random 515 mg/dL (60-115); Potassium 4.1 mmol/L (3.3-5.1); Sodium 130 mmol/L (135-145); Total Protein 7.5 g/dL (6.5-8.0)
--- NOTE | 2020-06-22 04:35 | PC.NURSE ---
Verbal order for 1 liter of NS by MD infusing at this time.
--- NOTE | 2020-06-22 05:12 | ED_ITS ---
HPI - General Adult General Chief complaint: Weakness Stated complaint: high sugar, dizzy Time Seen by Provider: 06/22/20 05:05 Source: patient Mode of arrival: ambulatory Limitations: no limitations History of Present Illness HPI narrative: Patient comes emergency room complaining of high blood sugar. Patient states she has had high readings in her glucometer, greater than 500 throughout the week. Patient states that she has been urinating more than usual, feeling weak. Patient states yesterday she call her primary care physician, she was instructed to come to the emergency room for further evaluation treatment. That sometimes she feels short of breath, weak, no cough, no chest pain. Related Data Previous Rx's Medication Instructions Recorded cefpodoxime 100 mg PO BID #14 tab 11/26/19 naproxen 500 mg PO BID PRN #20 tab 11/26/19 cefuroxime axetil 500 mg PO Q12H #20 tab 03/24/20 Allergies Allergy/AdvReac Type Severity Reaction Status Date / Time acetaminophen [From TYLENOL] Allergy Unknown LIVER Verified 06/22/20 00:42 SWELLING Review of Systems Review of Systems: Constitutional : No Weight loss, No Fever, No Chills, No Night Sweats, generalized malaise ENT/Mouth : No Hearing loss, No Ear Pain, No Nasal Congestion, No Sinus Pain, No Hoarseness, No sore throat, No Rhinorrhea, No Swallowing Difficulty Eyes: No Eye Pain, No Swelling, No Redness, No Foreign Body, No Discharge, No Vision Changes Cardiovascular : No Chest Pain, No SOB, No Dyspnea on Exertion, No Orthopnea, No Edema, No Palpitations Respiratory : No Cough, No Sputum, No Wheezing, No Smoke Exposure, nonspecific shortness of breath Gastrointestinal : No Nausea, No Vomiting, No Diarrhea, No Constipation, No abdominal Pain, No Hematochezia, No Melena Genitourinary : no irregular bleeding, No Dysuria, No Urinary Frequency, No Victor M turia, No Urinary Incontinence, No Urgency, No Flank Pain, No Urinary Flow Changes, No Hesitancy Musculoskeletal : No joint pain, No Myalgias, No Joint Swelling Skin : No Skin Lesions, No rash Neuro : No Weakness, No Numbness, No Paresthesias, No Loss of Consciousness, No Dizziness, No Headache Psych : No Anxiety/Panic, No Depression, No SI/HI/AH/VH, No Social Issues, Heme/Lymph: No Bruising, No Bleeding,No Lymphadenopathy Endocrine : Complaining of polyuria, polydipsia, high blood sugar at home COUNTS INCLUDE 234 BEDS AT THE [facility] Past Medical History Medical History Asthma delivery delivered Cholecystectomy planned Chronic abdominal pain Cirrhosis Diabetes Enlarged liver Hernia Migraine PTSD (post-traumatic stress disorder) Spleen enlarged Surgical History Status post anal fissurectomy Family History Family History Mother Diabetes Anxiety Depressed Arthritis Migraine Social History Social History Household Members: Children Alcohol intake: current Alcohol intake frequency: does not drink Smoking Status: Current every day smoker Tobacco Type: Cigarette Cigarettes Per Day: 7 Substance Use Type: Marijuana Advance Directives: No Advance Directives Information Provided: No Patient : No Physical Exam Vital Signs: Vital Signs: Last Vital Signs Temp 98.0 F 06/22/20 00:35 Pulse 86 06/22/20 06:10 Resp 18 06/22/20 06:10 BP 133/82 06/22/20 06:10 Pulse Ox 98 06/22/20 04:43 Body Mass Index 47.4 Appearance: Alert. Oriented X3. No acute distress. Morbidly obese Eyes: Pupils equal, round and reactive to light. ENT: Pharynx normal. Neck: Normal inspection. Neck supple. No lymph nodes noted. No crepitus CVS: Normal heart rate and rhythm. Pulses normal. Normal S1 and S2 Respiratory: No respiratory distress. Breath sounds normal. No Wheezing. No rales Abdomen: Soft and nontender. No rigidity. No distention. Skin: Skin warm and dry. Normal skin color. Normal skin turgor. Extremities: No lower extremity edema. No lower extremity edema. No Lacerations. No Rash Neuro: Oriented X 3. No motor deficit. No sensory deficit. Moving all extermities. No slurred speech. Course Course Course Narrative: Patient's lipase is slightly elevated, patient does not have epigastric pain, CT scan is not consistent with pancreatitis. However, this scans show a new hepatic lesion, ultrasound pending. Patient's blood glucose improved from 515 to 228 Sign out given to Dr. Madden. Medical Decision Making Lab Data Result diagrams: 06/22/20 03:36 06/22/20 03:36 Labs: Lab Results 06/22/20 06/22/20 06/22/20 Range/Units 00:34 02:38 03:36 WBC 5.4 (4.8-10.8) X10*3/uL RBC 4.33 (4.20-5.50) X10*6/uL Hgb 11.9 L (12.0-16.0) g/dl Hct 36.7 L (37-47) % MCV 84.8 (80-98) fL MCH 27.5 (27.0-33.0) pg MCHC 32.4 (31.0-35.0) g/dl RDW 16.3 H (11.0-16.0) % Plt Count 125 L (160-400) X10*3/uL MPV 10.8 (9.4-12.3) fL Immature Gran % (Auto) 0.2 (0.0-0.4) % Neut % (Auto) 49.8 (45-73) % Lymph % (Auto) 42.6 H (20-40) % Davidson % (Auto) 4.6 (2-11) % Eos % (Auto) 2.2 (0-4) % Baso % (Auto) 0.6 (0-2) % Lymph # (Auto) 2.3 (1.2-4.9) X10*3/uL Davidson # (Auto) 0.3 (0.1-1.2) X10*3/uL Eos # (Auto) 0.1 (0.0-0.4) X10*3/uL Baso # (Auto) 0.0 (0.0-0.2) X10*3/uL Abs Immat Gran (auto) 0.01 (0.00-0.03) X10*3/uL Absolute Neuts (auto) 2.7 (2.0-8.3) X10*3/uL Absolute Nucleated RBC 0.000 (0.0-0.012) X10*3/uL Nucleated RBC % (auto) 0.0 (0.0-0.2) /100WBC Sodium (135-145) mmol/L Potassium (3.3-5.1) mmol/L Chloride (96-108) mmol/L Carbon Dioxide (22-29) mmol/L Anion Gap (12-20) BUN (9-16) mg/dL Creatinine (0.5-1.4) mg/dL Estim Creat Clear Calc Estimated GFR POC Glucose 374 H* (60-115) mg/dL Random Glucose (60-115) mg/dL Calcium (8.4-10.2) mg/dL Total Bilirubin (0.0-1.0) mg/dL Direct Bilirubin (0.0-0.5) mg/dL AST (5-31) U/L ALT (0-31) U/L Alkaline Phosphatase (39-117) U/L Troponin I High Sens (<3.5-17.0) ng/L Total Protein (6.5-8.0) g/dL Albumin (3.5-5.0) g/dL Lipase (8-78) U/L Urine Color YELLOW Urine Appearance HAZY Urine pH 6.0 (5.0-8.0) Ur Specific Boomer 1.020 (1.005-1.025) Urine Protein NEG (NEG-TRACE) MG/DL Urine Glucose (UA) >=1000 H (NEG) MG/DL Urine Ketones NEG (NEG) MG/DL Urine Blood NEG (NEG) Urine Nitrite NEG (NEG) Ur Leukocyte Esterase NEG (NEG) Urine RBC 0-2 (0) /HPF Urine WBC 1-4 (0-4) /HPF Ur Squamous Epith Cells 3+ /LPF Urine Bacteria 2+ /LPF COVID-19 (SHAWN) (Negative) COVID-19 Clin Com 06/22/20 06/22/20 06/22/20 Range/Units 03:36 03:36 06:05 WBC (4.8-10.8) X10*3/uL RBC (4.20-5.50) X10*6/uL Hgb (12.0-16.0) g/dl Hct (37-47) % MCV (80-98) fL MCH (27.0-33.0) pg MCHC (31.0-35.0) g/dl RDW (11.0-16.0) % Plt Count (160-400) X10*3/uL MPV (9.4-12.3) fL Immature Gran % (Auto) (0.0-0.4) % Neut % (Auto) (45-73) % Lymph % (Auto) (20-40) % Davidson % (Auto) (2-11) % Eos % (Auto) (0-4) % Baso % (Auto) (0-2) % Lymph # (Auto) (1.2-4.9) X10*3/uL Davidson # (Auto) (0.1-1.2) X10*3/uL Eos # (Auto) (0.0-0.4) X10*3/uL Baso # (Auto) (0.0-0.2) X10*3/uL Abs Immat Gran (auto) (0.00-0.03) X10*3/uL Absolute Neuts (auto) (2.0-8.3) X10*3/uL Absolute Nucleated RBC (0.0-0.012) X10*3/uL Nucleated RBC % (auto) (0.0-0.2) /100WBC Sodium 130 L (135-145) mmol/L Potassium 4.1 (3.3-5.1) mmol/L Chloride 97 (96-108) mmol/L Carbon Dioxide 24 (22-29) mmol/L Anion Gap 13 (12-20) BUN 13 (9-16) mg/dL Creatinine 1.11 (0.5-1.4) mg/dL Estim Creat Clear Calc 92.8 Estimated GFR 53 POC Glucose 228 H (60-115) mg/dL Random Glucose 515 H* (60-115) mg/dL Calcium 9.2 (8.4-10.2) mg/dL Total Bilirubin 0.3 (0.0-1.0) mg/dL Direct Bilirubin 0.2 (0.0-0.5) mg/dL AST 27 (5-31) U/L ALT 30 (0-31) U/L Alkaline Phosphatase 165 H (39-117) U/L Troponin I High Sens < 3.5 (<3.5-17.0) ng/L Total Protein 7.5 (6.5-8.0) g/dL Albumin 3.5 (3.5-5.0) g/dL Lipase 211 H (8-78) U/L Urine Color Urine Appearance Urine pH (5.0-8.0) Ur Specific Boomer (1.005-1.025) Urine Protein (NEG-TRACE) MG/DL Urine Glucose (UA) (NEG) MG/DL Urine Ketones (NEG) MG/DL Urine Blood (NEG) Urine Nitrite (NEG) Ur Leukocyte Esterase (NEG) Urine RBC (0) /HPF Urine WBC (0-4) /HPF Ur Squamous Epith Cells /LPF Urine Bacteria /LPF COVID-19 (SHAWN) (Negative) COVID-19 Clin Com 06/22/20 Range/Units 06:08 WBC (4.8-10.8) X10*3/uL RBC (4.20-5.50) X10*6/uL Hgb (12.0-16.0) g/dl Hct (37-47) % MCV (80-98) fL MCH (27.0-33.0) pg MCHC (31.0-35.0) g/dl RDW (11.0-16.0) % Plt Count (160-400) X10*3/uL MPV (9.4-12.3) fL Immature Gran % (Auto) (0.0-0.4) % Neut % (Auto) (45-73) % Lymph % (Auto) (20-40) % Davidson % (Auto) (2-11) % Eos % (Auto) (0-4) % Baso % (Auto) (0-2) % Lymph # (Auto) (1.2-4.9) X10*3/uL Davidson # (Auto) (0.1-1.2) X10*3/uL Eos # (Auto) (0.0-0.4) X10*3/uL Baso # (Auto) (0.0-0.2) X10*3/uL Abs Immat Gran (auto) (0.00-0.03) X10*3/uL Absolute Neuts (auto) (2.0-8.3) X10*3/uL Absolute Nucleated RBC (0.0-0.012) X10*3/uL Nucleated RBC % (auto) (0.0-0.2) /100WBC Sodium (135-145) mmol/L Potassium (3.3-5.1) mmol/L Chloride (96-108) mmol/L Carbon Dioxide (22-29) mmol/L Anion Gap (12-20) BUN (9-16) mg/dL Creatinine (0.5-1.4) mg/dL Estim Creat Clear Calc Estimated GFR POC Glucose (60-115) mg/dL Random Glucose (60-115) mg/dL Calcium (8.4-10.2) mg/dL Total Bilirubin (0.0-1.0) mg/dL Direct Bilirubin (0.0-0.5) mg/dL AST (5-31) U/L ALT (0-31) U/L Alkaline Phosphatase (39-117) U/L Troponin I High Sens (<3.5-17.0) ng/L Total Protein (6.5-8.0) g/dL Albumin (3.5-5.0) g/dL Lipase (8-78) U/L Urine Color Urine Appearance Urine pH (5.0-8.0) Ur Specific Boomer (1.005-1.025) Urine Protein (NEG-TRACE) MG/DL Urine Glucose (UA) (NEG) MG/DL Urine Ketones (NEG) MG/DL Urine Blood (NEG) Urine Nitrite (NEG) Ur Leukocyte Esterase (NEG) Urine RBC (0) /HPF Urine WBC (0-4) /HPF Ur Squamous Epith Cells /LPF Urine Bacteria /LPF COVID-19 (SHAWN) Negative (Negative) COVID-19 Clin Com See Note Imaging Data CT abdomen: Radiologist's impression: FINDINGS: LUNG BASES: The visualized lung bases are unremarkable. LIVER, GALLBLADDER, AND BILIARY TREE: The liver is mildly prominent in size. Liver contour nodularity is again noted. There is a round hypodense lesion in the hepatic segment 8 measuring 2.3 cm which is not seen on the previous studies. The Hounsfield units of this lesion is -21.62. The gallbladder is surgically absent. No biliary ductal dilatation. PANCREAS: The pancreas enhances normally. No peripancreatic stranding or fluid. No evidence of pancreatic parenchymal calcifications or pancreatic ductal dilatation. No focal pancreatic mass is noted. SPLEEN: Note is again made of enlarged spleen which measures 21 cm in craniocaudal dimension. No focal splenic lesion is seen. Splenule at the inferior aspect of the spleen medially adjacent to the pancreatic tail is again noted. ADRENAL GLANDS: Unremarkable. KIDNEYS AND URETERS: The kidneys are normal in size, shape and attenuation. No evidence of hydroureteronephrosis or perinephric stranding. Lobularity of the renal contours is again noted. At least 5 small nonobstructing calcifications in the left kidney are demonstrated ranging from punctate to 0.4 cm. BLADDER: Unremarkable. 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 The small bowel is not dilated. The stomach is mildly distended; however, grossly unremarkable. The colon is normal in caliber without evidence of colonic wall thickening or pericolic fat stranding. An appendix is normal. ABDOMINAL WALL: No significant hernia is appreciated. LYMPH NODES: Scattered subcentimeter retroperitoneal lymph nodes are again noted. No evidence of pathologically enlarged lymph nodes. VASCULAR: The intra and extra hepatic portal venous system, splenic vein and SMV are well patent. The aortoiliac vessels are normal in caliber and well patent. PELVIC VISCERA: Unremarkable. OSSEOUS STRUCTURES: Stable. No acute or suspicious osseous lesions. Facet arthropathy at L5-S1 and mild degenerative changes in the visualized lower thoracic spine. CT/CT abdomen pelvis w con IMPRESSION: 1. No acute abnormality noted. Normal CT appearance of the pancreas. 2. Nodular liver contour with splenomegaly. Recommend correlation with underlying history of liver parenchymal disease/cirrhosis. 3. A new 2.3 cm round hypodense hepatic lesion in the segment 8 is indeterminate. Recommend focused ultrasound correlation. If ultrasound is not conclusive further evaluation with MRI will be needed for better characterization of this lesion. 4. Multiple nonobstructing left renal calcifications. Discharge Plan Discharge Clinical Impression: Acute hyperglycemia Prescriptions: No Action cefuroxime axetil 500 mg tablet 500 mg PO Q12H Qty: 20 RF: 0 cefpodoxime 100 mg tablet 100 mg PO BID Qty: 14 RF: 0 naproxen 500 mg tablet 500 mg PO BID PRN (Reason: pain) Qty: 20 RF: 0
[2020-06-22 05:33] LABS: Bilirubin Direct 0.2 mg/dL (0.0-0.5)
[2020-06-22] MEDS: Insulin Regular, Human 100 UNIT/ML 3 ML VIAL 10 UNIT IVPUSH (05:38)
[2020-06-22 05:48] LABS: Lipase 211 U/L (8-78)
--- NOTE | 2020-06-22 06:09 | PC.NURSE ---
Covid swab obtained. POC 228 mg/dl. VSS.
[2020-06-22 06:25] LABS: Glucose, Whole Blood 228 mg/dL (60-115)
[2020-06-22 06:35] LABS: COVID-19 Test Negative (Negative); IDNOW Serial# 9DD0AD1C
--- NOTE | 2020-06-22 06:44 | PC.NURSE ---
Off to CT on hospital bed.
[2020-06-22] MEDS: iohexoL 350 MG/ML 100 ML INFUS..BTL 85 ML IV (07:05)
[2020-06-22 09:58] LABS: Glucose, Whole Blood 192 mg/dL (60-115)
[2020-06-22] MEDS: ondansetron HCL 4 MG/2 ML VIAL IVPUSH (10:14)
--- NOTE | 2020-06-22 10:25 | PC.NURSE ---
PT IN NAD AT THIS TIME, C/O MILD NAUSEA, MEDICATED ORDERED. AWAITING US RESULTS.
== END 2020-06-22 11:35 | disposition home or self-care (01) ==
PROVIDERS: Emergency Medicine; Emergency Provider Emergency Medicine; PCP Nurse Practitioner
DX: R10.13 Epigastric pain (principal); R42 Dizziness and giddiness; Z20.822 Contact with and (suspected) exposure to COVID-19; Z79.899 Other long term (current) drug therapy
CPT/HCPCS: 36415; 71045; 74177; 76705; 80053; 80076; 81001; 82248; 82947; 83690; 84484; 85025; 87635; 93005; 96365; 96375; 99284; J2405; Q9967

== ENCOUNTER → 2020-11-07 09:16 | Outpatient (BNVA) | payer MEDICAID, SELFPAY | PROVIDERS: PCP Nurse Practitioner; Referring Provider Nurse Practitioner; Visit Provider Physician Assistant ==

== ENCOUNTER 2021-03-12 09:48 | Inpatient (IN) | payer MEDICAID, SELFPAY ==
--- NOTE | 2021-03-12 | ECG_ITS ---
Test Reason : CHECK QT Blood Pressure : / mmHG Vent. Rate : 138 BPM Atrial Rate : 138 BPM P-R Int : 124 ms QRS Dur : 068 ms QT Int : 288 ms P-R-T Axes : 032 -02 011 degrees QTc Int : 436 ms Sinus tachycardia Minimal voltage criteria for LVH, may be normal variant ( R in aVL ) Borderline ECG When compared with ECG of 22-JUN-2020 03:43, Vent. rate has increased BY 52 BPM Referred By: Myron Lopez Electronically Signed By:MIKY GRESHAM
--- NOTE | ~2021-03-12 | FL_ITS ---
EXAMINATION: XR FL WITH IMAGES CLINICAL INFORMATION: Left-sided stent placement. COMPARISON: CT abdomen and pelvis 03/12/2021. TECHNIQUE: Fluoroscopy performed by Dr. Raymundo Bourne. Fluoroscopy Time: (35.8 seconds). DAP: 25.46 mGycm2. Images: 3. FINDINGS: Images demonstrate portions of placement of the presumed internally dwelling left ureteral stent. FL/FL guidance in OR IMPRESSION: Fluoroscopy and spot films provided during double-J stent placement.
--- NOTE | ~2021-03-12 | CT_ITS ---
EXAMINATION: CT ABDOMEN AND PELVIS WITH CONTRAST CLINICAL INFORMATION: Liver disease. Left-sided abdominal pain COMPARISON: Previous abdominal ultrasound June [address] of the abdomen and pelvis June 2020 TECHNIQUE: Multidetector volumetric images were obtained from the superior aspect of the liver through the pubic symphysis following administration 85 mL of Omnipaque 350 intravenous contrast. Sagittal and coronal reformatted images were obtained on the technologist's workstation. Oral contrast: Yes This CT examination was performed using dose optimization techniques as appropriate, variously including the following: *Automated exposure control *Adjustment of mA and/or kV according to patient size (this includes techniques or standardized protocols for targeted exams where dose is matched to indication/reason for exam; i.e. extremities or head) *Use of iterative reconstruction technique DLP: 1495 mGy-cm FINDINGS: LUNG BASES: The visualized lung bases are unremarkable. LIVER, GALLBLADDER, AND BILIARY TREE: The liver is enlarged. The right lobe measures 22 cm in length contour of the liver is irregular or scalloped and there is hypertrophy of the left lobe and caudate lobe suggestive of cirrhotic changes. There is a 2.2 cm lesions lesion high in segment 8 of the liver. This has low Hounsfield units measuring -20. This is similar to previous CT scan from June 2020 however is new from older exams for example November and May 2019. No other focal liver lesion is seen. The gallbladder has been removed. There is no biliary duct dilatation. PANCREAS: Unremarkable. SPLEEN: The spleen is enlarged and measures 19 cm in length. ADRENAL GLANDS: Unremarkable. KIDNEYS AND URETERS: There is left renal cortical thinning or scarring. There are 2 small stones in the upper pole of the left kidney, largest measuring 3 mm. There is mild left hydronephrosis and ureteral from a 3 mm left UPJ stone. The right kidney is unremarkable. BLADDER: 3 mm left UVJ stone. The bladder is otherwise unremarkable. GASTROINTESTINAL TRACT: The small and large bowel are unremarkable. The appendix is unremarkable. ABDOMINAL WALL: No significant hernia is appreciated. LYMPH NODES: There are small retroperitoneal lymph nodes. No enlarged lymph nodes are seen. There is no ascites. VASCULAR: There are varices. PELVIC VISCERA: There is a small 2 x 2.7 cm left ovarian cyst. Uterus and adnexa are otherwise unremarkable. OSSEOUS STRUCTURES: Unremarkable. CT/CT abdomen pelvis w con IMPRESSION: Cirrhotic-appearing liver. Splenomegaly and varices. 2.2 cm low-attenuation lesion high in segment 8 of the liver. Further characterization with liver MRI should be considered. This is similar appearing to most recent exam June 2020 but is new from older exams. Mild left hydronephrosis and left ureteral dilatation from a 3 mm left UVJ stone. Small left renal stones. Fleischner guidelines were followed.
[2021-03-12 10:03] VITALS: BP 142/84; BP 154/71; PULSE 100; PULSE 103; RESP 18; TEMP 36.8; O2SAT 100; O2SAT 99; BMI 60.2
--- NOTE | 2021-03-12 10:03 | ED_ITS ---
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 No associated vomiting, urinary symptoms, fevers, chills, diarrhea or constipation. Related Data Home Medications Medication Instructions Recorded Confirmed albuterol sulfate 90 mcg/actuation 2 puff PO Q4-6H PRN 03/12/21 03/12/21 aerosol inhaler (ProAir HFA) atorvastatin 40 mg tablet 40 mg PO BEDTIME 03/12/21 03/12/21 buspirone 10 mg tablet 10 mg PO TID 03/12/21 03/12/21 canagliflozin 300 mg tablet 300 mg PO DAILY 03/12/21 03/12/21 (Invokana) cyclobenzaprine 10 mg tablet 10 mg PO TID 03/12/21 03/12/21 duloxetine 60 mg capsule,delayed 60 mg PO DAILY 03/12/21 03/12/21 release fluticasone propionate 110 2 puff PO BID 03/12/21 03/12/21 mcg/actuation HFA aerosol inhaler (Flovent HFA) insulin degludec 200 unit/mL (3 40 unit SUBCUT BID 03/12/21 03/12/21 mL) subcutaneous pen (Tresiba FlexTouch U-200 insulin) insulin lispro 100 unit/mL 5 unit SUBCUT TIDWM 03/12/21 03/12/21 subcutaneous pen (Humalog KwikPen (U-100) Insulin) lisinopril 2.5 mg tablet 2.5 mg PO DAILY 03/12/21 03/12/21 metformin 500 mg tablet,extended 1,000 mg PO BID 03/12/21 03/12/21 release 24 hr pantoprazole 40 mg tablet,delayed 40 mg PO DAILY 03/12/21 03/12/21 release prazosin 2 mg capsule 2 mg PO BEDTIME 03/12/21 03/12/21 pregabalin 225 mg capsule 225 mg PO BID 03/12/21 03/12/21 tramadol 50 mg tablet 50 mg PO Q6H PRN 03/12/21 03/12/21 Allergies Allergy/AdvReac Type Severity Reaction Status Date / Time acetaminophen [From Allergy Unknown LIVER Verified 06/22/20 00:42 TYLENOL] SWELLING Review of Systems Review of Systems Yes all other systems are reviewed and are negative Constitutional: Reports no additional constitutional complaints, Denies body ache(s), Denies chills, Denies fever(s), Denies headache(s) and Denies weakness Eyes: Reports no additional eye complaints and Denies change in vision Reports system reviewed and no additional complaints, except as documented, Denies dizziness, Denies headache(s), Denies nasal congestion, Denies nasal discharge and Denies neck pain Cardiovascular: Reports no additional cardiovascular complaints, Denies chest pain, Denies leg edema and Denies dyspnea Respiratory: Reports no additional respiratory complaints, Denies cough and Denies dyspnea Gastrointestinal: Reports no additional gastrointestinal complaints, Denies abdominal pain, Denies diarrhea, Denies nausea and Denies vomiting Genitourinary: Reports no additional female genitourinary complaints and Denies urinary incontinence Musculoskeletal: Reports no additional musculoskeletal complaints, Reports back pain, Denies arthralgias, Denies joint swelling, Denies neck pain, Denies numbness and Denies tingling Skin/Breast: Reports system reviewed and no additional complaints, except as docu and Denies rash Reports system reviewed and no additional complaints, except as documented, Denies Abnormal speech present, Denies dizziness, Denies headache(s), Denies numbness, Denies tingling and Denies weakness Physical Exam Verdana 4l Vital Signs: Verdana 4d Verdana 4d Vital Signs: Verdana 4d Verdana 4Bd Last Vital Signs Verdana 4d Greaser Helper New 4d Greaser Helper New 4d Temp 98.3 F 03/12/21 14:11 Greaser Helper New 4d Pulse 129 H 03/12/21 14:11 Greaser Helper New 4d Resp 13 03/12/21 14:11 BP 114/81 03/12/21 14:11 Pulse Ox 96 03/12/21 14:11 BMI result Body Mass Index 60.2 Const: Other: In pain, holding abdomen General: comfortable Orientation/consciousness: patient oriented x3 Limitations: no limitations HENMT: Head: Yes normal to inspection Ears: hearing grossly normal bilaterally General nose exam: Normal external nose present Face and sinus: Yes normal facial exam Mouth: Normal oral and palatal mucosa present Throat: Yes posterior oropharynx normal Eyes: General: appearance normal, both eyes and all related structures Pupils: Equal, round and reactive pupils present Neck: Neck: Yes normal visual inspection Chest: Chest palpation & inspection: normal inspection of the chest Resp: Effort & Inspection: normal respiratory effort Auscultation: clear to auscultation bilaterally Cardio: Rate: regular rate Rhythm: regular rhythm Peripheral pulses: Peripheral pulses 2+ throughout GI: Inspection: Yes normal to inspection Palpation (GI): Soft to palpation and Tenderness to palpation present (GI) (diffusely, more focal left side-no rebound or guarding ) Auscultation: normal bowel sounds Back/Spine/Pelvis: Thoracic/Lumbar Spine: thoracic and lumbar spine normal to inspection Skin: General skin exam: no rashes or lesions noted Neuro: General: patient oriented x3, no focal motor deficits and normal sensation to monofilament Cranial nerves: Yes Equal, round and reactive pupils present Cognition (Neuro): normal cognition Speech: No Abnormal speech present Gait exam (Neuro): Normal gait present Motor exam (neuro): 5/5 motor strength present throughout Extrem: General: Yes normal to inspection Course Course Course Narrative: 45 yo female here with sudden onset back and abdominal pain w/ nausea. Exam the patient has generalized abdominal pain more focal in the left side as well as some mild left CVA tenderness. Will check labs, UA, CT. Will provide analgesia, IV fluid. 1230- Ct abdomen/pelvis IMPRESSION: Cirrhotic-appearing liver. Splenomegaly and varices. 2.2 cm low-attenuation lesion high in segment 8 of the liver. Further characterization with liver MRI should be considered. This is similar appearing to most recent exam June 2020 but is new from older exams. Mild left hydronephrosis and left ureteral dilatation from a 3 mm left UVJ stone. Small left renal stones.? -of note patient had this finding of liver lesion a on her last visit in June. She had an abdominal ultrasound at that time which showed a continued lesion. It was recommend that she follow up outpatient to have an MRI of the liver but the patient tells me she did not do so. She has having continued pain after morphine and Toradol. Will repeat dose of morphine, add p.o. Flomax and reassess. Patient may need admission for pain control. 1415-The patient has received 8mg morphine, 30mg toradol, PO flomax, 8mg of zofran with continued nausea/vomiting, intractable pain. Will discuss with urology as I anticipate admission. 1433-spoke to Dr. Bourne for urology.. Recommended adding 20 mg of daily prednisone if blood sugar is well controlled. Call out to medicine to discuss for admission 1530-Discussed case with Dr Lopez who accepted admission/ MDM - Abdominal Pain Medical Records Attestation: I reviewed the patient's medical records. Lab Data Attestation: I reviewed the patient's lab results. Result diagrams: 03/12/21 10:24 03/12/21 10:24 Labs: Lab Results 03/12/21 03/12/21 03/12/21 Range/Units 10:24 10:24 10:36 WBC 7.5 (4.8-10.8) X10*3/uL RBC 5.14 (4.20-5.50) X10*6/uL Hgb 12.1 (12.0-16.0) g/dl Hct 39.4 (37.0-47.0) % MCV 76.7 L (80.0-98.0) fL MCH 23.5 L (27.0-33.0) pg MCHC 30.7 L (31.0-35.0) g/dl RDW 21.1 H (11.0-16.0) % Plt Count 159 L (160-400) X10*3/uL MPV 10.9 (9.4-12.3) fL Immature Gran % 0.1 (0.0-0.4) % (Auto) Neut % (Auto) 56.7 (45-73) % Lymph % (Auto) 34.9 (20-40) % [place] % (Auto) 6.2 (2-11) % Eos % (Auto) 1.7 (0-4) % Baso % (Auto) 0.4 (0-2) % Lymph # (Auto) 2.6 (1.2-4.9) X10*3/uL [place] # (Auto) 0.5 (0.1-1.2) X10*3/uL Eos # (Auto) 0.1 (0.0-0.4) X10*3/uL Baso # (Auto) 0.0 (0.0-0.2) X10*3/uL Abs Immat Gran 0.01 (0.00-0.03) (auto) X10*3/uL Absolute Neuts 4.3 (2.0-8.3) x10*3/uL (auto) Absolute Nucleated 0.000 (0.0-0.012) RBC X10*3/uL Nucleated RBC % 0.0 (0.0-0.2) /100WBC (auto) Smear Tech's VERIFIED Comments Sodium 138 (135-145) mmol/L Potassium 4.3 (3.3-5.1) mmol/L Chloride 107 (96-108) mmol/L Carbon Dioxide 22 (22-29) mmol/L Anion Gap 13 (12-20) BUN 10 (9-16) mg/dL Creatinine 1.21 (0.5-1.4) mg/dL Estim Creat Clear 97.9 Calc Estimated GFR 48 Random Glucose 136 H D (60-115) mg/dL Calcium 9.7 (8.4-10.2) mg/dL Total Bilirubin 0.5 (0.0-1.0) mg/dL Direct Bilirubin 0.2 (0.0-0.5) mg/dL AST 29 (5-31) U/L ALT 23 (0-31) U/L Alkaline Phosphatase 128 H D (39-117) U/L Total Protein 8.3 H (6.5-8.0) g/dL Albumin 3.9 (3.5-5.0) g/dL Lipase 71 (8-78) U/L Urine Color Not Reportable Urine Appearance Not Reportable Urine pH Not Reportable Ur Specific [place] Not Reportable Urine Protein Not Reportable Urine Glucose (UA) Not Reportable Urine Ketones Not Reportable Urine Blood Not Reportable Urine Nitrite Not Reportable Ur Leukocyte Not Reportable Esterase Urine RBC Not Reportable Urine WBC Not Reportable Urine WBC Clumps Cancelled Ur Squamous Epith Not Reportable Cells Ur Renal Epithelial Cancelled Cell [place] Biurate Cancelled Crystals Calcium Carbonate Cancelled Cryst Calcium Phosphate Cancelled Cryst Calcium Oxalate Cancelled Crystal Leucine Crystals Cancelled Cystine Crystals Cancelled Uric Acid Crystals Cancelled Triple Phos Crystals Cancelled Talc Crystals Cancelled Tyrosine Crystals Cancelled Other Crystals Cancelled Amorphous Sediment Cancelled Urine Bacteria Not Reportable Epithelial Casts Cancelled Fatty Casts Cancelled Hyaline Casts Cancelled Granular Casts Cancelled Waxy Casts Cancelled RBC Casts Cancelled WBC Casts Cancelled Other Casts Cancelled Urine Mucus Cancelled Urine Trichomonas Cancelled Urine Yeast Cancelled Urine Sperm Cancelled Ur Oval Fat Bodies Cancelled Urine Test (NEGATIVE) 03/12/21 03/12/21 Range/Units 10:36 10:36 WBC (4.8-10.8) X10*3/uL RBC (4.20-5.50) X10*6/uL Hgb (12.0-16.0) g/dl Hct (37.0-47.0) % MCV (80.0-98.0) fL MCH (27.0-33.0) pg MCHC (31.0-35.0) g/dl RDW (11.0-16.0) % Plt Count (160-400) X10*3/uL MPV (9.4-12.3) fL Immature Gran % (Auto) (0.0-0.4) % Neut % (Auto) (45-73) % Lymph % (Auto) (20-40) % [place] % (Auto) (2-11) % Eos % (Auto) (0-4) % Baso % (Auto) (0-2) % Lymph # (Auto) (1.2-4.9) X10*3/uL [place] # (Auto) (0.1-1.2) X10*3/uL Eos # (Auto) (0.0-0.4) X10*3/uL Baso # (Auto) (0.0-0.2) X10*3/uL Abs Immat Gran (auto) (0.00-0.03) X10*3/uL Absolute Neuts (auto) (2.0-8.3) x10*3/uL Absolute Nucleated RBC (0.0-0.012) X10*3/uL Nucleated RBC % (auto) (0.0-0.2) /100WBC Smear Tech's Comments Sodium (135-145) mmol/L Potassium (3.3-5.1) mmol/L Chloride (96-108) mmol/L Carbon Dioxide (22-29) mmol/L Anion Gap (12-20) BUN (9-16) mg/dL Creatinine (0.5-1.4) mg/dL Estim Creat Clear Calc Estimated GFR Random Glucose (60-115) mg/dL Calcium (8.4-10.2) mg/dL Total Bilirubin (0.0-1.0) mg/dL Direct Bilirubin (0.0-0.5) mg/dL AST (5-31) U/L ALT (0-31) U/L Alkaline Phosphatase (39-117) U/L Total Protein (6.5-8.0) g/dL Albumin (3.5-5.0) g/dL Lipase (8-78) U/L Urine Color STRAW Urine Appearance HAZY Urine pH 6.0 Ur Specific [place] 1.010 Urine Protein NEG Urine Glucose (UA) >=1000 H Urine Ketones NEG Urine Blood NEG Urine Nitrite POS H Ur Leukocyte Esterase NEG Urine RBC 0 Urine WBC 15-29 H Urine WBC Clumps Ur Squamous Epith Cells TRACE Ur Renal Epithelial Cell Jadiel Biurate Crystals Calcium Carbonate Cryst Calcium Phosphate Cryst Calcium Oxalate Crystal Leucine Crystals Cystine Crystals Uric Acid Crystals Triple Phos Crystals Talc Crystals Tyrosine Crystals Other Crystals Amorphous Sediment Urine Bacteria 4+ Epithelial Casts Fatty Casts Hyaline Casts Granular Casts Waxy Casts RBC Casts WBC Casts Other Casts Urine Mucus Urine Trichomonas Urine Yeast Urine Sperm Ur Oval Fat Bodies Urine Test NEGATIVE (NEGATIVE) Imaging Data CT scan - abdomen: Attestation: I personally reviewed and interpreted this imaging study as follows: Radiologist's impression: IMPRESSION: Cirrhotic-appearing liver. Splenomegaly and varices. 2.2 cm low-attenuation lesion high in segment 8 of the liver. Further characterization with liver MRI should be considered. This is similar appearing to most recent exam June 2020 but is new from older exams. Mild left hydronephrosis and left ureteral dilatation from a 3 mm left UVJ stone. Small left renal stones Discharge Plan Discharge Clinical Impression: Renal colic, UTI (urinary tract infection), Intractable abdominal pain Patient Disposition: Admitted As Inpatient [facility] Past Medical History Attestation statement: The following information was validated with the patient. Source: old records reviewed and nursing notes reviewed Medical History Asthma delivery delivered Cholecystectomy planned Chronic abdominal pain Cirrhosis Diabetes Enlarged liver Hernia Migraine PTSD (post-traumatic stress disorder) Spleen enlarged Surgical History Status post anal fissurectomy Family History Family History Mother Diabetes Anxiety Depressed Arthritis Migraine Social History Social History (Updated 03/12/21 @ 12:39 by Teresa Belcher NP) Household Members: Children Alcohol intake: former Cigarettes Per Day: 7 Substance Use Type: Marijuana Advance Directives: No Advance Directives Information Provided: No Patient : No
[2021-03-12 10:29] LABS: Basophils Percent Auto 0.4 % (0-2); Hemoglobin 12.1 g/dl (12.0-16.0); Neutrophils Absolute Auto 4.3 x10*3/uL (2.0-8.3); SCAN SMEAR FLAG 1
[2021-03-12 10:31] LABS: Eosinophils Absolute Auto 0.1 X10*3/uL (0.0-0.4); Eosinophils Percent Auto 1.7 % (0-4); Hematocrit 39.4 % (37.0-47.0); Imm Gran Abs Auto 0.01 X10*3/uL (0.00-0.03); Imm Gran Pct Auto 0.1 % (0.0-0.4); Lymphocytes Absolute Auto 2.6 X10*3/uL (1.2-4.9); Lymphocytes Percent Auto 34.9 % (20-40); MANUAL DIFF FLAG SCAN; Mean Corpuscular HGB Conc 30.7 g/dl (31.0-35.0); Mean Corpuscular Hemoglobin 23.5 pg (27.0-33.0); Mean Corpuscular Volume 76.7 fL (80.0-98.0); Mean Platelet Volume 10.9 fL (9.4-12.3); Monocytes Absolute Auto 0.5 X10*3/uL (0.1-1.2); Monocytes Percent Auto 6.2 % (2-11); Neutrophils Percent Auto 56.7 % (45-73); Platelet Count 159 X10*3/uL (160-400); Red Blood Count 5.14 X10*6/uL (4.20-5.50); Red Cell Distribution Width 21.1 % (11.0-16.0); White Blood Count 7.5 X10*3/uL (4.8-10.8)
[2021-03-12 10:44] LABS: Alanine Aminotransferase 23 U/L (0-31); Albumin Level 3.9 g/dL (3.5-5.0); Alkaline Phosphatase 128 U/L (39-117); Anion Gap 13 (12-20); Aspartate Amino Transferase 29 U/L (5-31); Bilirubin Direct 0.2 mg/dL (0.0-0.5); Bilirubin Total 0.5 mg/dL (0.0-1.0); Blood Urea Nitrogen 10 mg/dL (9-16); Calcium 9.7 mg/dL (8.4-10.2); Carbon Dioxide 22 mmol/L (22-29); Chloride 107 mmol/L (96-108); Creatinine Clr Calc Pharmacy 97.9; Estimated Glomerular Filt Rate 48; Glucose Random 136 mg/dL (60-115); Lipase 71 U/L (8-78); Potassium 4.3 mmol/L (3.3-5.1); Sodium 138 mmol/L (135-145); Total Protein 8.3 g/dL (6.5-8.0)
[2021-03-12 10:45] LABS: UPreg QC Valid YES; Urine Pregnancy NEGATIVE (NEGATIVE)
[2021-03-12] MEDS: ondansetron HCL 4 MG/2 ML VIAL IVPUSH ×2 (10:55→16:12)
[2021-03-12] MEDS: Morphine Sulfate 4 MG/ML CARTRIDGE IVPUSH ×3 (10:55→20:59)
[2021-03-12] MEDS: 0.9 % Sodium Chloride 1,000 ML 999 ML IV (10:55)
[2021-03-12 10:57] LABS: PLT ABN DIST 1
[2021-03-12 10:58] LABS: SLIDE REVIEW VERIFIED
[2021-03-12 11:16] LABS: Appearance Urine HAZY; Color Urine STRAW; Glucose Urine UA >=1000 MG/DL (NEG); Leukocyte Esterase Urine NEG (NEG); Nitrite Urine POS (NEG); UACC Culture Trigger YES; Urine Blood NEG (NEG); Urine Ketones NEG (NEG); Urine Protein NEG (NEG-TRACE)
[2021-03-12 11:17] LABS: Bacteria Urine 4+ /LPF; RBC Urine 0 /HPF (0); Squamous Epithelial Cell Urine TRACE /LPF
[2021-03-12] MEDS: Ketorolac Tromethamine 30 MG/ML VIAL IVPUSH ×2 (11:27→16:12)
[2021-03-12] MEDS: iohexoL 350 MG/ML 100 ML INFUS..BTL IV (11:57)
[2021-03-12 13:12] VITALS: BP 120/78; PULSE 110; RESP 17; TEMP 36.4; O2SAT 99
[2021-03-12] MEDS: Tamsulosin HCL 0.4 MG CAPSULE PO (13:37)
[2021-03-12 14:11] VITALS: BP 114/81; PULSE 129; RESP 13; TEMP 36.8; O2SAT 96
--- NOTE | 2021-03-12 14:54 | PHA.MEDREC ---
Pharmacy Consult ? Medication Reconciliation Pharmacy has completed the medication reconciliation. Patient actively vomiting. She is a [facility] patient at [facility] Pharm[facility]. Contact pharmacy for an updated list on medications in medbox. Jessica PonceD
--- NOTE | 2021-03-12 15:19 | P.HPHOSP_ITS ---
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 Reports she was feeling okay until this morning which she started to feeling pain in her back on the left-sided worsened to 10/10 associated with nausea, vomiting, chills with no documented fever. She was evaluated the emergency and a CT of the abdomen showed 3 mm stone at the UVJ. Discussed with Urology and admitted for further evaluation and treatment. Review of Systems Verdana 4l Review of Systems: Verdana 4d No fever, but reporting Verdana 4d chills No chest pain, palpitation No shortness of breath or coughing No abdominal pain having nausea and vomiting Back pain, left-sided No any rash or wounds Verdana 4d PMFSH Medical History Asthma delivery delivered Cholecystectomy planned Chronic abdominal pain Cirrhosis Diabetes Enlarged liver Hernia Migraine PTSD (post-traumatic stress disorder) Spleen enlarged Family History Mother Diabetes Anxiety Depressed Arthritis Migraine Surgical History Status post anal fissurectomy Social History Household Members: Children Housing: Apartment 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 If so, by whom?: No Do you feel safe in your current relationship?: Yes Is there a partner from a previous relationship who is making you feel unsafe now?: No Are you made to feel afraid or neglected: No Advance Directives: No Advance Directives Information Provided: No Do you have thoughts of harming others: None Do you have a plan to hurt others: No Plan Recently lost weight without trying: No Nutrition Risks: No Nutritional Risk Patient : No service: No Current occupational status: unemployed Meds Allergies Allergy/AdvReac Type Severity Reaction Status Date / Time acetaminophen [From Allergy Unknown LIVER Verified 06/22/20 00:42 TYLENOL] SWELLING Active Medications: Current Medications Pharmacy Consult (Consult Rx Perform Med Rec) 1 each MISCELLANE ONCE PRN PRN Reason: Consult order Home Medications Medication Instructions Recorded Confirmed Last Taken Type albuterol sulfate 2 puff PO Q4-6H 03/12/21 03/12/21 Unknown History 90 mcg/actuation PRN aerosol inhaler (ProAir HFA) atorvastatin 40 40 mg PO BEDTIME 03/12/21 03/12/21 Unknown History mg tablet buspirone 10 mg 10 mg PO TID 03/12/21 03/12/21 Unknown History tablet canagliflozin 300 300 mg PO DAILY 03/12/21 03/12/21 Unknown History mg tablet (Invokana) cyclobenzaprine 10 mg PO TID 03/12/21 03/12/21 Unknown History 10 mg tablet duloxetine 60 mg 60 mg PO DAILY 03/12/21 03/12/21 Unknown History capsule,delayed release fluticasone 2 puff PO BID 03/12/21 03/12/21 Unknown History propionate 110 mcg/actuation HFA aerosol inhaler (Flovent HFA) insulin degludec 40 unit SUBCUT 03/12/21 03/12/21 Unknown History 200 unit/mL (3 BID mL) subcutaneous pen (Tresiba FlexTouch U-200 insulin) insulin lispro 5 unit SUBCUT 03/12/21 03/12/21 Unknown History 100 unit/mL TIDWM subcutaneous pen (Humalog KwikPen (U-100) Insulin) lisinopril 2.5 mg 2.5 mg PO DAILY 03/12/21 03/12/21 Unknown History tablet metformin 500 mg 1,000 mg PO BID 03/12/21 03/12/21 Unknown History tablet,extended release 24 hr pantoprazole 40 40 mg PO DAILY 03/12/21 03/12/21 Unknown History mg tablet,delayed release prazosin 2 mg 2 mg PO BEDTIME 03/12/21 03/12/21 Unknown History capsule pregabalin 225 mg 225 mg PO BID 03/12/21 03/12/21 Unknown History capsule tramadol 50 mg 50 mg PO Q6H PRN 03/12/21 03/12/21 Unknown History tablet Physical Exam Verdana 4l Vital Signs and Narrative: Verdana 4d Verdana 4d Vital Signs: Verdana 4d Verdana 4Bd Last Vital Signs Verdana 4d Shoe Singer New 4d Shoe Singer New 4d Temp 98.3 F 03/12/21 14:11 Shoe Singer New 4d Pulse 129 H 03/12/21 14:11 Shoe Singer New 4d Resp 13 03/12/21 14:11 BP 114/81 03/12/21 14:11 Pulse Ox 96 03/12/21 14:11 BMI result Body Mass Index 60.2 Const: Other: Constitutional : Alert, oriented, mildly distressed from pain Neck : Normal inspection, Supple Cardiovascular : RRR, S1 S2, no lower extremity edema Respiratory : Fair bilateral air entry, no crackles, wheezes or rhonchi Gastrointestinal: soft, lax, Normal bowel sounds, Non tender Skin : Warm, Dry Urological, mild CVA tenderness not so convincing Neurological : Alert & oriented x3, No focal deficit Results Labs CBC and Chem 7: 03/13/21 03:46 03/13/21 03:46 Labs: Laboratory Results - last 24 hr 03/12/21 03/12/21 03/12/21 10:24 10:24 10:36 MCV 76.7 L MCH 23.5 L MCHC 30.7 L RDW 21.1 H Plt Count 159 L MPV 10.9 Immature Gran % (Auto) 0.1 Neut % (Auto) 56.7 Lymph % (Auto) 34.9 [place] % (Auto) 6.2 Eos % (Auto) 1.7 Baso % (Auto) 0.4 Lymph # (Auto) 2.6 [place] # (Auto) 0.5 Eos # (Auto) 0.1 Baso # (Auto) 0.0 Abs Immat Gran (auto) 0.01 Absolute Neuts (auto) 4.3 Absolute Nucleated RBC 0.000 Nucleated RBC % (auto) 0.0 Smear Tech's Comments VERIFIED Anion Gap 13 Estim Creat Clear Calc 97.9 Estimated GFR 48 Random Glucose 136 H D Calcium 9.7 Total Bilirubin 0.5 Direct Bilirubin 0.2 AST 29 ALT 23 Alkaline Phosphatase 128 H D Total Protein 8.3 H Albumin 3.9 Lipase 71 Urine Color Not Reportable Urine Appearance Not Reportable Urine pH Not Reportable Ur Specific [place] Not Reportable Urine Protein Not Reportable Urine Glucose (UA) Not Reportable Urine Ketones Not Reportable Urine Blood Not Reportable Urine Nitrite Not Reportable Ur Leukocyte Esterase Not Reportable Urine RBC Not Reportable Urine WBC Not Reportable Urine WBC Clumps Cancelled Ur Squamous Epith Cells Not Reportable Ur Renal Epithelial Cell Cancelled [place] Biurate Crystals Cancelled Calcium Carbonate Cryst Cancelled Calcium Phosphate Cryst Cancelled Calcium Oxalate Crystal Cancelled Leucine Crystals Cancelled Cystine Crystals Cancelled Uric Acid Crystals Cancelled Triple Phos Crystals Cancelled Talc Crystals Cancelled Tyrosine Crystals Cancelled Other Crystals Cancelled Amorphous Sediment Cancelled Urine Bacteria Not Reportable Epithelial Casts Cancelled Fatty Casts Cancelled Hyaline Casts Cancelled Granular Casts Cancelled Waxy Casts Cancelled RBC Casts Cancelled WBC Casts Cancelled Other Casts Cancelled Urine Mucus Cancelled Urine Trichomonas Cancelled Urine Yeast Cancelled Urine Sperm Cancelled Ur Oval Fat Bodies Cancelled Urine Test 03/12/21 03/12/21 10:36 10:36 MCV MCH MCHC RDW Plt Count MPV Immature Gran % (Auto) Neut % (Auto) Lymph % (Auto) [place] % (Auto) Eos % (Auto) Baso % (Auto) Lymph # (Auto) [place] # (Auto) Eos # (Auto) Baso # (Auto) Abs Immat Gran (auto) Absolute Neuts (auto) Absolute Nucleated RBC Nucleated RBC % (auto) Smear Tech's Comments Anion Gap Estim Creat Clear Calc Estimated GFR Random Glucose Calcium Total Bilirubin Direct Bilirubin AST ALT Alkaline Phosphatase Total Protein Albumin Lipase Urine Color STRAW Urine Appearance HAZY Urine pH 6.0 Ur Specific [place] 1.010 Urine Protein NEG Urine Glucose (UA) >=1000 H Urine Ketones NEG Urine Blood NEG Urine Nitrite POS H Ur Leukocyte Esterase NEG Urine RBC 0 Urine WBC 15-29 H Urine WBC Clumps Ur Squamous Epith Cells TRACE Ur Renal Epithelial Cell Jadiel Biurate Crystals Calcium Carbonate Cryst Calcium Phosphate Cryst Calcium Oxalate Crystal Leucine Crystals Cystine Crystals Uric Acid Crystals Triple Phos Crystals Talc Crystals Tyrosine Crystals Other Crystals Amorphous Sediment Urine Bacteria 4+ Epithelial Casts Fatty Casts Hyaline Casts Granular Casts Waxy Casts RBC Casts WBC Casts Other Casts Urine Mucus Urine Trichomonas Urine Yeast Urine Sperm Ur Oval Fat Bodies Urine Test NEGATIVE Imaging Radiologist's Impressions: Impressions Abdomen/Pelvis CT 03/12/21 11:54 IMPRESSION: Cirrhotic-appearing liver. Splenomegaly and varices. 2.2 cm low-attenuation lesion high in segment 8 of the liver. Further characterization with liver MRI should be considered. This is similar appearing to most recent exam June 2020 but is new from older exams. Mild left hydronephrosis and left ureteral dilatation from a 3 mm left UVJ stone. Small left renal stones. Fleischner guidelines were followed. 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 diabetic diet Continue Lyrica and duloxetine for neuropathy Asthma Not in exacerbation Continue home inhalers, use albuterol as needed Morbid obesity BMI of 60 Advised to lose weight DVT PPX Lovenox Quality Stroke Does the patient have a stroke diagnosis?: No VTE Prior VTE?: No VTE Risk Level:: Medical - moderate - high VTE Device Contraindication: Treatment Not Indicated VTE Drug Contraindication: N/A - Med Ordered
[2021-03-12] MEDS: cefTRIAXone sodium 1 GM in 0.9 % Sodium Chloride 50 ML IV (16:11)
[2021-03-12] MEDS: Omeprazole 40 MG CAPSULE.DR PO (16:12)
[2021-03-12 16:23] LABS: COVID-19 Test Negative (Negative)
--- NOTE | 2021-03-12 17:33 | MHC.CM.PN ---
PATIENT LIVES WITH HER DAUGHTERS SHE IS INDEPENDENT WITH ADLS SHE DOES NOT DRIVE AND MAY NEED ASSISTANCE AT DC TIME. PATIENT IS NOT COVID VACCINATED SHE IS COVID RECOVERED BUT DID NTO STATE FOR HOW LONG. PATIENT EXPRESSING SIGNIFICANT PAIN. SHE IS AWARE THAT CASE MANAGEMENT CAN MEET WITH HER TO COMPLETE A HCP IF SHE DECIDES TODO SO.
[2021-03-12 17:52] LABS: Reflex Lactate? Lactic Acid Added
[2021-03-12 18:05] LABS: Glucose, Whole Blood 225 mg/dL (60-115)
--- NOTE | 2021-03-12 18:18 | PC.NURSE ---
attempted to call report will rn will call back
[2021-03-12 18:32] LABS: ~Lactic Acid-LAB USE ONLY 4.1 mmol/L (0.5-2.0)
--- NOTE | 2021-03-12 19:30 | PC.NURSE ---
Spoke with nurse taking report for patient on [facility] regarding medication from 200 pm ,430 pm and 500pm. Some medication look like they were pulled and some still in pyxis. I am not comfortable charting on or giving medication that I cannot confirm were given or not. I told Rn that she could bring that up with the mold yard supervisor so that the mold yard supervisor can follow up with the nurse who was on shift in ER and responsible for administration of those medication. My charge nurse made aware of conversation and situation regarding the medications that were flagged.
[2021-03-12 20:00] VITALS: BP 141/84; PULSE 136; RESP 20; TEMP 37.6; O2SAT 93
[2021-03-12 20:12] LABS: Reflex Lactate? 2 Y
--- NOTE | 2021-03-12 20:16 | PC.NURSE ---
Patient asked if she received her insulin at 5 pm and she stated she told the nurse no that she takes it at 7 pm
--- NOTE | 2021-03-12 20:19 | PC.NURSE ---
Spoke with pharmacy about rescheduling heparin doses as it was not given and is 3 hours late
--- NOTE | 2021-03-12 21:02 | PC.NURSE ---
medicated per Mar.
[2021-03-12 21:13] VITALS: PULSE 122; RESP 20; TEMP 36.1; O2SAT 98
[2021-03-12 21:22] LABS: Glucose, Whole Blood 188 mg/dL (60-115)
[2021-03-12 21:28] LABS: ~Lactic Acid-LAB USE ONLY 4.5 mmol/L (0.5-2.0)
[2021-03-12 21:30] VITALS: BP 90/62
[2021-03-12] MEDS: 0.9 % Sodium Chloride 1,000 ML 75 ML IVCONT (22:30)
[2021-03-12] MEDS: Insulin Lispro 100 UNIT/ML 3 ML VIAL SUBCUT (22:32)
[2021-03-12] MEDS: Insulin Glargine,Hum.rec.anlog 100 UNIT/ML 10 ML VIAL 30 UNIT SUBCUT (22:32)
[2021-03-12] MEDS: Pregabalin 75 MG CAPSULE 225 MG PO (22:33)
[2021-03-12] MEDS: Cyclobenzaprine HCl 10 MG TABLET PO (22:33)
[2021-03-12] MEDS: Atorvastatin Calcium 40 MG TABLET PO (22:33)
[2021-03-12] MEDS: Heparin Sodium,Porcine 5,000 UNIT/ML VIAL 5000 UNIT SUBCUT (22:34)
[2021-03-12] MEDS: busPIRone HCl 10 MG TABLET PO (22:34)
[2021-03-13] VITALS (15 sets, daily range): BP systolic 78–141; BP diastolic 51–84; PULSE 92–127; RESP 15–21; TEMP 36.4–39.1; O2SAT 91–99
[2021-03-13] MEDS: Ketorolac Tromethamine 30 MG/ML VIAL IVPUSH (00:46)
[2021-03-13 04:10] LABS: Hematocrit 38.7 % (37.0-47.0); Hemoglobin 11.7 g/dl (12.0-16.0); Mean Corpuscular HGB Conc 30.2 g/dl (31.0-35.0); Mean Corpuscular Hemoglobin 23.4 pg (27.0-33.0); Mean Corpuscular Volume 77.6 fL (80.0-98.0); Platelet Count 114 X10*3/uL (160-400); Red Blood Count 4.99 X10*6/uL (4.20-5.50); Red Cell Distribution Width 21.4 % (11.0-16.0); White Blood Count 10.8 X10*3/uL (4.8-10.8)
[2021-03-13 04:12] LABS: Anion Gap 14 (12-20); Blood Urea Nitrogen 16 mg/dL (9-16); Calcium 8.8 mg/dL (8.4-10.2); Carbon Dioxide 25 mmol/L (22-29); Chloride 102 mmol/L (96-108); Creatinine Clr Calc Pharmacy 84.1; Estimated Glomerular Filt Rate 40; Glucose Random 115 mg/dL (60-115); Lactic Acid 2.1 mmol/L (0.5-2.0); Potassium 4.6 mmol/L (3.3-5.1); Sodium 136 mmol/L (135-145)
[2021-03-13 04:20] LABS: PLT ABN DIST 1
--- NOTE | 2021-03-13 04:56 | PC.NURSE ---
2129; Patient admitted from ed, vitals taken, blood pressure 90/62, hr elevated 122, previous documented blood pressure 141/84. Lab reporting critical lactic acid of 4.5 and previous lactic at 1808 was 4.1 There are no IVF ordered at this time. Dr. Hart notified about low blood pressure and critical lactic acid level. Order for IVF; NS @ 75mls/hr
[2021-03-13] MEDS: Heparin Sodium,Porcine 5,000 UNIT/ML VIAL 5000 UNIT SUBCUT ×2 (05:47→20:58)
[2021-03-13] MEDS: Omeprazole 40 MG CAPSULE.DR PO (05:48)
--- NOTE | 2021-03-13 05:50 | MHC.PIE ---
P.TEMP 102.[address] BRADEN NOTIFIED THAT PT'S TEMP IS NOW 102.4.PT STATES SHE IS UNABLE TO TAKE TYLENOL SEC.TO HER LIVER ISSUES.MD ORDERED ICE PACKS AND IBUPROFEN 400MG PO X 1,ALSO REPEAT STAT LACTIC.. E.ICE PACKS APPLIED AND MED WITH IBUPROFEN ORDERED.LACTIC DRAWN.NEXT SHIFT UPDATED.
[2021-03-13 05:56] LABS: Reflex Lactate? Lactic Acid Added
[2021-03-13] MEDS: Ibuprofen 400 MG TABLET PO (06:40)
[2021-03-13 06:51] LABS: ~Lactic Acid-LAB USE ONLY 1.3 mmol/L (0.5-2.0)
[2021-03-13 07:19] LABS: Glucose, Whole Blood 131 mg/dL (60-115)
[2021-03-13] MEDS: Cyclobenzaprine HCl 10 MG TABLET PO ×2 (08:35→20:56)
[2021-03-13] MEDS: DULoxetine HCl 60 MG CAPSULE.DR PO (08:35)
[2021-03-13] MEDS: busPIRone HCl 10 MG TABLET PO ×2 (08:35→20:56)
[2021-03-13] MEDS: Pregabalin 75 MG CAPSULE 225 MG PO ×2 (08:35→20:56)
[2021-03-13] MEDS: Insulin Glargine,Hum.rec.anlog 100 UNIT/ML 10 ML VIAL 30 UNIT SUBCUT ×2 (08:38→20:58)
--- NOTE | 2021-03-13 10:49 | P.CNUR_ITS ---
History of Present Illness Consult details Consult date: 03/13/21 Narrative: Billie is a 45-year-old female Presents to hospital with left-sided flank pain, associated nausea or vomiting No prior history stones Imaging shows 3 mm distal left ureteric stone with associated hy droureteronephrosis Creatinine 1.4, baseline 1.1 Initial presentation with elevated lactate which has come down with rehydration Pain is still present and does not think stone has passed Recommendation for cystoscopy, left retrograde, left ureteroscopy with stent placement Keep NPO Review of Systems Verdana 4l Constitutional: Verdana 4d Constitutional: Verdana 4d Verdana 4d Reports as per HPI and Reports no additional constitutional complaints Verdana 4l Cardiovascular: Verdana 4d Cardiovascular: Verdana 4d Verdana 4d Reports as per HPI and Reports no additional cardiovascular complaints Verdana 4l Respiratory: Verdana 4d Verdana 4d Respiratory: Verdana 4d Reports as per HPI and Reports no additional respiratory complaints Verdana 4l Gastrointestinal: Verdana 4d Gastrointestinal: Verdana 4d Verdana 4d Reports as per HPI and Reports no additional gastrointestinal complaints Verdana 4l Genitourinary: Verdana 4d Verdana 4d Genitourinary: Verdana 4d Reports as per HPI Verdana 4l Musculoskeletal: Verdana 4d Musculoskeletal: Verdana 4d Verdana 4d Reports no additional musculoskeletal complaints and Reports as per HPI Verdana 4l Neurologic: Verdana 4d Reports system reviewed and no additional complaints, except as documented and Reports as per HPI PMFSH Past Medical History Medical History Asthma delivery delivered Cholecystectomy planned Chronic abdominal pain Cirrhosis Diabetes Enlarged liver Hernia Migraine PTSD (post-traumatic stress disorder) Spleen enlarged Family History Family History Mother Diabetes Anxiety Depressed Arthritis Migraine Surgical History Surgical History Status post anal fissurectomy Social History Social History Household Members: Children Housing: Apartment Do you presently have visiting nurse or other home services: Yes (no bake molder) Alcohol intake: former Patient Tobacco Use Status: Current everyday Tobacco user Tobacco use type: Cigarette Cigarettes Per Day: 6 Years Smoked: 15 Smoked in Last 30 Days: Yes Patient Interested in Nicotine Replacement: Yes Use of substances other than those prescribed or required for medical reasons: Yes Substance Use Type: Marijuana Substance Use Frequency: Daily Currently Displaying Signs/Symptoms of Drug Intoxication Withdrawal: No Have you been hit, kicked, punched, or otherwise hurt by someone within the past year? If so, by whom?: No Do you feel safe in your current relationship?: Yes Is there a partner from a previous relationship who is making you feel unsafe now?: No Are you made to feel afraid or neglected: No Advance Directives: No Advance Directives Information Provided: No Do you have thoughts of harming others: None Do you have a plan to hurt others: No Plan Recently lost weight without trying: No Nutrition Risks: No Nutritional Risk Patient : No service: No Current occupational status: unemployed Meds Allergies Allergy/AdvReac Type Severity Reaction Status Date / Time acetaminophen [From Allergy Unknown LIVER Verified 06/22/20 00:42 TYLENOL] SWELLING Active Medications: Current Medications Albuterol Sulfate (Albuterol Sulfate 90 Mcg 8 Gm Inhaler) 2 puff INHALE Q4H PRN PRN Reason: Wheezing Atorvastatin Calcium (Atorvastatin Calcium 40 Mg Tablet) 40 mg PO BEDTIME [facility] Last Admin: 03/12/21 22:33 Dose: 40 mg Documented by: Buspirone HCl (Buspirone Hcl 10 Mg Tablet) 10 mg PO TID [facility] Last Admin: 03/13/21 08:35 Dose: 10 mg Documented by: Cyclobenzaprine HCl (Cyclobenzaprine Hcl 10 Mg Tablet) 10 mg PO TID [facility] Last Admin: 03/13/21 08:35 Dose: 10 mg Documented by: Duloxetine HCl (Duloxetine Hcl 60 Mg Capsule.Dr) 60 mg PO DAILY [facility] Last Admin: 03/13/21 08:35 Dose: 60 mg Documented by: Fluticasone Propionate (Fluticasone Propionate 100 Mcg Blst.W.Dev) 2 puff INHALE RBID [facility] Last Admin: 03/13/21 07:54 Dose: Not Given Documented by: Heparin Sodium (Porcine) (Heparin Sodium,Porcine 5,000 Unit/Ml Vial) 5,000 unit SUBCUT Q8H [facility] Last Admin: 03/13/21 05:47 Dose: 5,000 unit Documented by: Ceftriaxone Sodium 1 gm/ (Sodium Chloride) 50 mls @ 100 mls/hr IV Q24H [facility] Sodium Chloride (Ns) 1,000 mls @ 75 mls/hr IVCONT .[id number] [facility] Last Admin: 03/12/21 22:30 Dose: 75 mls/hr Documented by: Insulin Glargine (Insulin Glargine,Hum.Rec.Anlog 100 Unit/Ml 10 Ml Vial) 30 unit SUBCUT BID [facility] Last Admin: 03/13/21 08:38 Dose: 30 unit Documented by: Insulin Human Lispro (Insulin Lispro 100 Unit/Ml 3 Ml Vial) 0 unit SUBCUT QIDACHS [facility]; Protocol Last Admin: 03/13/21 08:14 Dose: Not Given Documented by: Insulin Human Lispro (Insulin Lispro 100 Unit/Ml 3 Ml Vial) 5 unit SUBCUT TIDWM [facility] Last Admin: 03/13/21 08:14 Dose: Not Given Documented by: Morphine Sulfate (Morphine Sulfate 4 Mg/Ml Cartridge) 4 mg IVPUSH Q4H PRN; Protocol PRN Reason: Pain, Severe (Pain Scale 7-10) Last Admin: 03/12/21 20:59 Dose: 4 mg Documented by: Omeprazole (Omeprazole 40 Mg Capsule.) 40 mg PO DAILY@0630 [facility] Last Admin: 03/13/21 05:48 Dose: 40 mg Documented by: Ondansetron HCl (Ondansetron Hcl 4 Mg/2 Ml Vial) 4 mg IVPUSH Q8H PRN PRN Reason: Nausea and Vomiting Pharmacy Consult (Consult Rx Perform Med Rec) 1 each MISCELLANE ONCE PRN PRN Reason: Consult order Prazosin HCl (Prazosin Hcl 1 Mg Capsule) 2 mg PO BEDTIME [facility]; Protocol Last Admin: 03/12/21 22:34 Dose: Not Given Documented by: Pregabalin (Pregabalin 75 Mg Capsule) 225 mg PO BID [facility] Last Admin: 03/13/21 08:35 Dose: 225 mg Documented by: Sodium Chloride (0.9 % Sodium Chloride Flush 3 Ml Syringe) 3 ml IVFLUSH QSHIFT [facility] Last Admin: 03/13/21 08:35 Dose: Not Given Documented by: Home Medications Medication Instructions Recorded Confirmed Last Taken Type albuterol sulfate 2 puff PO Q4-6H 03/12/21 03/12/21 Unknown History 90 mcg/actuation PRN aerosol inhaler (ProAir HFA) atorvastatin 40 40 mg PO BEDTIME 03/12/21 03/12/21 Unknown History mg tablet buspirone 10 mg 10 mg PO TID 03/12/21 03/12/21 Unknown History tablet canagliflozin 300 300 mg PO DAILY 03/12/21 03/12/21 Unknown History mg tablet (Invokana) cyclobenzaprine 10 mg PO TID 03/12/21 03/12/21 Unknown History 10 mg tablet duloxetine 60 mg 60 mg PO DAILY 03/12/21 03/12/21 Unknown History capsule,delayed release fluticasone 2 puff PO BID 03/12/21 03/12/21 Unknown History propionate 110 mcg/actuation HFA aerosol inhaler (Flovent HFA) insulin degludec 40 unit SUBCUT 03/12/21 03/12/21 Unknown History 200 unit/mL (3 BID mL) subcutaneous pen (Tresiba FlexTouch U-200 insulin) insulin lispro 5 unit SUBCUT 03/12/21 03/12/21 Unknown History 100 unit/mL TIDWM subcutaneous pen (Humalog KwikPen (U-100) Insulin) lisinopril 2.5 mg 2.5 mg PO DAILY 03/12/21 03/12/21 Unknown History tablet metformin 500 mg 1,000 mg PO BID 03/12/21 03/12/21 Unknown History tablet,extended release 24 hr pantoprazole 40 40 mg PO DAILY 03/12/21 03/12/21 Unknown History mg tablet,delayed release prazosin 2 mg 2 mg PO BEDTIME 03/12/21 03/12/21 Unknown History capsule pregabalin 225 mg 225 mg PO BID 03/12/21 03/12/21 Unknown History capsule tramadol 50 mg 50 mg PO Q6H PRN 03/12/21 03/12/21 Unknown History tablet Physical Exam Verdana 4l Vital Signs: Verdana 4d Verdana 4d Vital Signs: Verdana 4d Verdana 4Bd Last Vital Signs Verdana 4d Assembly Stock Supervisor New 4d Assembly Stock Supervisor New 4d Temp 99.9 F 03/13/21 07:23 Assembly Stock Supervisor New 4d Pulse 104 H 02/01/22 07:23 Assembly Stock Supervisor New 4d Resp 20 03/13/21 07:23 BP 97/58 L 03/13/21 07:23 Pulse Ox 96 03/13/21 07:23 BMI result Body Mass Index 60.2 Const: General: cooperative, healthy appearing, comfortable and no acute distress Orientation/consciousness: patient oriented x3 HENMT: Face and sinus: Yes normal facial exam Mouth: moist mucous membranes Neck: Neck: Yes normal visual inspection, Yes full ROM and Yes trachea midline Chest: Chest palpation & inspection: normal inspection of the chest Resp: Effort & Inspection: normal respiratory effort, able to speak in complete sentences and no respiratory distress GI: Inspection: Yes normal to inspection Back/Spine/Pelvis: Cervical Spine: normal cervical lordosis Thoracic/Lumbar Spine: thoracic and lumbar spine normal to inspection Skin: General skin exam: no rashes or lesions noted Neuro: General: patient oriented x3, tone normal and moves all extremities Extrem: General: Yes normal to inspection and Yes capillary refill normal Results Labs Result diagrams: 03/13/21 03:46 03/13/21 03:46 Labs: Abnormal lab results 03/12/21 03/12/21 03/12/21 Range/Units 10:24 10:36 15:48 Hgb (12.0-16.0) g/dl MCV 76.7 L (80.0-98.0) fL MCH 23.5 L (27.0-33.0) pg MCHC 30.7 L (31.0-35.0) g/dl RDW 21.1 H (11.0-16.0) % Plt Count 159 L (160-400) X10*3/uL Creatinine (0.5-1.4) mg/dL POC Glucose (60-115) mg/dL Lactic Acid 4.0 H* (0.5-2.0) mmol/L Lactic Acid F/U @ 2Hr (0.5-2.0) mmol/L Lactic Acid F/U @ 4Hr (0.5-2.0) mmol/L Urine Glucose (UA) >=1000 H (NEG) MG/DL Urine Nitrite POS H (NEG) Urine WBC 15-29 H (0-4) /HPF 03/12/21 03/12/21 03/12/21 Range/Units 18:00 18:08 20:51 Hgb (12.0-16.0) g/dl MCV (80.0-98.0) fL MCH (27.0-33.0) pg MCHC (31.0-35.0) g/dl RDW (11.0-16.0) % Plt Count (160-400) X10*3/uL Creatinine (0.5-1.4) mg/dL POC Glucose 225 H (60-115) mg/dL Lactic Acid (0.5-2.0) mmol/L Lactic Acid F/U @ 2Hr 4.1 H* (0.5-2.0) mmol/L Lactic Acid F/U @ 4Hr 4.5 H* (0.5-2.0) mmol/L Urine Glucose (UA) (NEG) MG/DL Urine Nitrite (NEG) Urine WBC (0-4) /HPF 03/12/21 03/13/21 03/13/21 Range/Units 21:19 03:46 03:46 Hgb 11.7 L (12.0-16.0) g/dl MCV 77.6 L (80.0-98.0) fL MCH 23.4 L (27.0-33.0) pg MCHC 30.2 L (31.0-35.0) g/dl RDW 21.4 H (11.0-16.0) % Plt Count 114 L D (160-400) X10*3/uL Creatinine 1.41 H (0.5-1.4) mg/dL POC Glucose 188 H (60-115) mg/dL Lactic Acid (0.5-2.0) mmol/L Lactic Acid F/U @ 2Hr (0.5-2.0) mmol/L Lactic Acid F/U @ 4Hr (0.5-2.0) mmol/L Urine Glucose (UA) (NEG) MG/DL Urine Nitrite (NEG) Urine WBC (0-4) /HPF 03/13/21 03/13/21 Range/Units 03:46 07:15 Hgb (12.0-16.0) g/dl MCV (80.0-98.0) fL MCH (27.0-33.0) pg MCHC (31.0-35.0) g/dl RDW (11.0-16.0) % Plt Count (160-400) X10*3/uL Creatinine (0.5-1.4) mg/dL POC Glucose 131 H (60-115) mg/dL Lactic Acid 2.1 H* (0.5-2.0) mmol/L Lactic Acid F/U @ 2Hr (0.5-2.0) mmol/L Lactic Acid F/U @ 4Hr (0.5-2.0) mmol/L Urine Glucose (UA) (NEG) MG/DL Urine Nitrite (NEG) Urine WBC (0-4) /HPF Short CBC 03/12/21 03/13/21 Range/Units 10:24 03:46 WBC 7.5 10.8 (4.8-10.8) X10*3/uL Hgb 12.1 11.7 L (12.0-16.0) g/dl Hct 39.4 38.7 (37.0-47.0) % Plt Count 159 L 114 L D (160-400) X10*3/uL BMP 03/13/21 03:46 Sodium 136 Potassium 4.6 Chloride 102 Carbon Dioxide 25 BUN 16 D Creatinine 1.41 H Calcium 8.8 D Urine 03/12/21 03/12/21 03/12/21 Range/Units 10:36 10:36 10:36 Urine Color Not Reportable STRAW Urine Appearance Not Reportable HAZY Urine pH Not Reportable 6.0 Ur Specific [place] Not Reportable 1.010 Urine Protein Not Reportable NEG Urine Glucose (UA) Not Reportable >=1000 H Urine Test NEGATIVE (NEGATIVE) All other labs normal. Assessment and Plan (1) Ureteral stone with hydronephrosis: Status: Acute Plan Distal left ureteric stone Ureteroscopy We discussed the nature of the decision and reasonable alternatives for performing the above surgery. Interventions include chemical dissolution, ESWL, ureteroscopy with laser lithotripsy and stent placement, PCNL. Options such as medical therapy were discussed. The relative uncertainties and benefits related to each alternate procedure were adequately discussed. General surgical risks including, but not limited to, pain, bleeding, infection, myocardial infarction, pulmonary embolus, deep vein thrombosis and cerebrovascular accident which may result in further hospitalization were discussed. Full disclosure of the procedure as well as all major risks, benefits and complications were discussed including but not limited to damage to the urethra, bladder and kidney infection, damage to the ureter, stent migration or malposition, scarring to the renal pelvis, remnant stone fragments, subsequent stone passage with need for secondary procedures. The overall secondary procedure rate is approximately 10-15%. The success rate of the procedure was discussed. Success of the procedure in the short-term does not necessarily guarantee that long-term success will be maintained. Suitable follow up will need to be maintained. The patient showed understanding of discussion and wishes to proceed with - cystoscopy, retrograde, ureteroscopy, possible lithotripsy/stone basketing and stent on the left side Procedures Date of Service Date of Service: 03/13/21
[2021-03-13 10:55] LABS: Glucose, Whole Blood 127 mg/dL (60-115)
--- NOTE | 2021-03-13 13:06 | P.CDIC_ITS ---
CDI Concurrent Query Documentation Clarification: PHYSICIAN'S DOCUMENTATION REQUEST Date of Query: 03/13/21 1302 Patient Name: Billie Martínez Admit Date: 03/12/21 Dear Doctor, A review of the medical record indicates additional documentation may be needed. Please review below and update the documentation accordingly. Verdana 4Bd Risk Factors/Clinical Indicators/Treatments Verdana 4d Height and weight: BMI 60.3 5' 7 If possible, please provide an associated diagnosis related to the abnormal BMI, such as: BMI 60.3 For a BMI >= 40: * Overweight * Obesity * Due to excess calories * Drug induced * Due to other cause * Severe or Morbid Obesity * With alveolar hypoventilation * Without alveolar hypoventilation Or: * BMI is not significant * Other (please specify) * Unable to determine Use of terms such as suspected, likely, concern for, or probable (associated with a specific diagnosis that is being evaluated, monitored, or treated as if it exists) are acceptable and can be coded in the inpatient setting, when documented at the time of discharge. Thank you, Macarena Alvarez [facility], CDIS Extension: [phone] Please use your independent medical judgment in providing your response. THIS QUERY IS PART OF THE PERMANENT MEDICAL RECORD Provider Response: Morbid Obesity Other Diagnosis: Morbid obesity
--- NOTE | 2021-03-13 13:06 | MHC.CDI.CONC ---
CDI Concurrent Query Documentation Clarification: PHYSICIAN'S DOCUMENTATION REQUEST Date of Query: 03/13/21 1306 Patient Name: Billie Martínez Admit Date: 03/12/21 Dear Doctor, A review of the medical record indicates additional documentation may be needed. Please review below and update the documentation accordingly. Risk Factors/Clinical Indicators/Treatments Height and weight: BMI 60.3 5' 7 If possible, please provide an associated diagnosis related to the abnormal BMI, such as: BMI 60.3 For a BMI >= 40: Overweight Obesity Due to excess calories Drug induced Due to other cause Severe or Morbid Obesity With alveolar hypoventilation Without alveolar hypoventilation Or: BMI is not significant Other (please specify) Unable to determine Use of terms such as suspected, likely, concern for, or probable (associated with a specific diagnosis that is being evaluated, monitored, or treated as if it exists) are acceptable and can be coded in the inpatient setting, when documented at the time of discharge. Thank you, Macarena Alvarez [facility], CDIS Extension: [phone] Please use your independent medical judgment in providing your response. THIS QUERY IS PART OF THE PERMANENT MEDICAL RECORD Provider Response: Morbid Obesity Other Diagnosis: Morbid obesity
--- NOTE | 2021-03-13 14:37 | P.PNIM_ITS ---
Subjective Subjective Date of Service: 03/13/21 Interval History: the patient was seen and evaluated this morning Laying in bed, feels before Developed fever, chills overnight Pain decrease this morning No reported other overnight events. Review of Systems Had fever and chills overnight No chest pain, palpitation No shortness of breath or coughing No abdominal pain having nausea and vomiting Back pain, left-sided No any rash or wounds Physical Exam Verdana 4l Vital Signs: Verdana 4d Verdana 4d Vital Signs: Verdana 4d Verdana 4Bd Last Vital Signs Verdana 4d Three Dimensional Map Modeler New 4d Three Dimensional Map Modeler New 4d Temp 98.5 F 03/13/21 11:23 Three Dimensional Map Modeler New 4d Pulse 109 H 03/13/21 11:23 Three Dimensional Map Modeler New 4d Resp 20 03/13/21 11:23 BP 116/62 03/13/21 11:23 Pulse Ox 94 03/13/21 11:23 BMI result Body Mass Index 60.2 Const: Other: Constitutional : Alert, oriented, mildly distressed from pain Neck : Normal inspection, Supple Cardiovascular : RRR, S1 S2, no lower extremity edema Respiratory : Fair bilateral air entry, no crackles, wheezes or rhonchi Gastrointestinal: soft, lax, Normal bowel sounds, Non tender Skin : Warm, Dry Urological, mild CVA tenderness not so convincing Neurological : Alert & oriented x3, No focal deficit Objective Data Active Medications Albuterol Sulfate (Albuterol Sulfate 90 Mcg 8 Gm Inhaler) 2 puff INHALE Q4H PRN PRN Reason: Wheezing Atorvastatin Calcium (Atorvastatin Calcium 40 Mg Tablet) 40 mg PO BEDTIME [facility] Last Admin: 03/12/21 22:33 Dose: 40 mg Documented by: TAM Buspirone HCl (Buspirone Hcl 10 Mg Tablet) 10 mg PO TID [facility] Last Admin: 03/13/21 08:35 Dose: 10 mg Documented by: WAQAS Cyclobenzaprine HCl (Cyclobenzaprine Hcl 10 Mg Tablet) 10 mg PO TID [facility] Last Admin: 03/13/21 08:35 Dose: 10 mg Documented by: WAQAS Duloxetine HCl (Duloxetine Hcl 60 Mg Capsule.) 60 mg PO DAILY [facility] Last Admin: 03/13/21 08:35 Dose: 60 mg Documented by: WAQAS Fluticasone Propionate (Fluticasone Propionate 100 Mcg Blst.W.Dev) 2 puff INHALE RBID [facility] Last Admin: 03/13/21 07:54 Dose: Not Given Documented by: Heparin Sodium (Porcine) (Heparin Sodium,Porcine 5,000 Unit/Ml Vial) 5,000 unit SUBCUT Q8H [facility] Last Admin: 03/13/21 05:47 Dose: 5,000 unit Documented by: LYNNETTE Ceftriaxone Sodium 1 gm/ (Sodium Chloride) 50 mls @ 100 mls/hr IV Q24H [facility] Sodium Chloride (Ns) 1,000 mls @ 75 mls/hr IVCONT .[id number] [facility] Last Infusion: 03/13/21 11:59 Dose: 0 mls/hr Documented by: WAQAS Insulin Glargine (Insulin Glargine,Hum.Rec.Anlog 100 Unit/Ml 10 Ml Vial) 30 unit SUBCUT BID [facility] Last Admin: 03/13/21 08:38 Dose: 30 unit Documented by: WAQAS Insulin Human Lispro (Insulin Lispro 100 Unit/Ml 3 Ml Vial) 0 unit SUBCUT QID ACHS [facility]; Protocol Last Admin: 03/13/21 11:27 Dose: Not Given Documented by: WAQAS Non-Admin Reason: No Insulin Coverage Insulin Human Lispro (Insulin Lispro 100 Unit/Ml 3 Ml Vial) 5 unit SUBCUT TIDWM [facility] Last Admin: 03/13/21 08:14 Dose: Not Given Documented by: WAQAS Non-Admin Reason: No Insulin Coverage Morphine Sulfate (Morphine Sulfate 4 Mg/Ml Cartridge) 4 mg IVPUSH Q4H PRN; Protocol PRN Reason: Pain, Severe (Pain Scale 7-10) Last Admin: 03/12/21 20:59 Dose: 4 mg Documented by: JOHANNA Omeprazole (Omeprazole 40 Mg Capsule.) 40 mg PO DAILY@0630 [facility] Last Admin: 03/13/21 05:48 Dose: 40 mg Documented by: LYNNETTE Ondansetron HCl (Ondansetron Hcl 4 Mg/2 Ml Vial) 4 mg IVPUSH Q8H PRN PRN Reason: Nausea and Vomiting Pharmacy Consult (Consult Rx Perform Med Rec) 1 each MISCELLANE ONCE PRN PRN Reason: Consult order Prazosin HCl (Prazosin Hcl 1 Mg Capsule) 2 mg PO BEDTIME [facility]; Protocol Last Admin: 03/12/21 22:34 Dose: Not Given Documented by: TAM Non-Admin Reason: Decreased Blood Pressure Pregabalin (Pregabalin 75 Mg Capsule) 225 mg PO BID [facility] Last Admin: 03/13/21 08:35 Dose: 225 mg Documented by: WAQAS Sodium Chloride (0.9 % Sodium Chloride Flush 3 Ml Syringe) 3 ml IVFLUSH QSHIFT [facility] Last Admin: 03/13/21 08:35 Dose: Not Given Documented by: WAQAS Non-Admin Reason: IV Running Labs CBC & Chem 7: 03/13/21 03:46 03/13/21 03:46 Labs: Laboratory Results - last 24 hr 03/12/21 03/12/21 03/12/21 15:48 15:48 18:00 MCV MCH MCHC RDW Plt Count MPV Absolute Nucleated RBC Nucleated RBC % (auto) Anion Gap Estim Creat Clear Calc Estimated GFR POC Glucose 225 H Random Glucose Lactic Acid 4.0 H* Lactic Acid F/U @ 2Hr Lactic Acid F/U @ 4Hr Calcium COVID-19 (SHAWN) Negative COVID-surespot Com See Note 03/12/21 03/12/21 03/12/21 18:08 20:51 21:19 MCV MCH MCHC RDW Plt Count MPV Absolute Nucleated RBC Nucleated RBC % (auto) Anion Gap Estim Creat Clear Calc Estimated GFR POC Glucose 188 H Random Glucose Lactic Acid Lactic Acid F/U @ 2Hr 4.1 H* Lactic Acid F/U @ 4Hr 4.5 H* Calcium COVID-19 (SHAWN) COVID-19 Clin Com 03/13/21 03/13/21 03/13/21 03:46 03:46 03:46 MCV 77.6 L MCH 23.4 L MCHC 30.2 L RDW 21.4 H Plt Count 114 L D MPV Not Reportable Absolute Nucleated RBC 0.000 Nucleated RBC % (auto) 0.0 Anion Gap 14 Estim Creat Clear Calc 84.1 Estimated GFR 40 POC Glucose Random Glucose 115 Lactic Acid 2.1 H* Lactic Acid F/U @ 2Hr Lactic Acid F/U @ 4Hr Calcium 8.8 D COVID-19 (SHAWN) COVID-19 Clin Com 03/13/21 03/13/2103/13/22 06:28 07:15 10:47 MCV MCH MCHC RDW Plt Count MPV Absolute Nucleated RBC Nucleated RBC % (auto) Anion Gap Estim Creat Clear Calc Estimated GFR POC Glucose 131 H 127 H Random Glucose Lactic Acid Lactic Acid F/U @ 2Hr 1.3 Lactic Acid F/U @ 4Hr Calcium COVID-19 (SHAWN) COVID-19 Clin Com Microbiology Microbiology Results: Microbiology 03/12/21 15:48 Blood Culture - Preliminary Blood - Venous Prelim: GNR Gram Stain only 03/12/21 00:00 Urine Culture - Preliminary Urine clean catch - Urine merlos top Gram negative quinn Assessment and Plan (1) Sepsis: Status: Acute (2) Ureteral stone with hydronephrosis: Status: Acute (3) Nausea and vomiting: Status: Acute (4) Renal colic: Status: Acute (5) UTI (urinary tract infection): Status: Acute (6) Lactic acidosis: Status: Acute (7) Bacteremia: Status: Acute Plan A 45 years old lady with PMH of asthma, type 1 diabetes, HTN among others who presented to the hospital 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 # Sepsis, lactic acidosis ,Hydronephrosis # Secondary to bacteremia, infected ureteric stone Developed fever, tachycardia and lactic acidosis overnight CT scan showed Mild left hydronephrosis and left ureteral dilatation from a 3 mm left UVJ stone Continue gentle hydration Pain medication include Toradol, morphine Urology input appreciated, to place a stent Bacteremia 2/2 UTI possible pyelonephritis Blood and urine culture growing gram-negative rods continue ceftriaxone pending final sensitivity Type 1 diabetes Continue home Lantus SSI. diabetic diet Continue Lyrica and duloxetine for neuropathy Asthma Not in exacerbation Continue home inhalers, use albuterol as needed Morbid obesity BMI of 60 Advised to lose weight DVT PPX Lovenox Quality Stroke Does the patient have a stroke diagnosis?: No VTE Prior VTE?: No VTE Risk Level:: Medical - moderate - high VTE Device Contraindication: Treatment Not Indicated VTE Drug Contraindication: N/A - Med Ordered
[2021-03-13] MEDS: 0.9 % Sodium Chloride 1,000 ML 75 ML IVCONT ×2 (15:11→21:02)
[2021-03-13] MEDS: cefTRIAXone sodium 1 GM in 0.9 % Sodium Chloride 50 ML IV (15:29)
[2021-03-13 16:01] LABS: Glucose, Whole Blood 138 mg/dL (60-115)
--- NOTE | 2021-03-13 17:08 | HO.ANESPROP2 ---
HPI - Anesthesia Eval Consult details Narrative: 45 F for cysto , Asthma , GERD , smoker , lactic acidosis , hydronephrosis Smoker , Morbid Obesity , Arthritis , PTSD , fibromyalgia , neck pain with upper extremity pain ( radiating ) PMF Active Problems Active Problems: All Active Problems (Updated 03/13/21 @ 14:46 by Myron Lopez MD) Bacteremia (Acute) Lactic acidosis (Acute) Sepsis (Acute) Ureteral stone with hydronephrosis (Acute) Nausea and vomiting (Acute) Renal colic (Acute) UTI (urinary tract infection) (Acute) Intractable abdominal pain (Acute) Poor historian (Acute) Chronic abdominal pain (Acute) PTSD (post-traumatic stress disorder) (Acute) Past Medical History Medical History Asthma delivery delivered Cholecystectomy planned Chronic abdominal pain Cirrhosis Diabetes Enlarged liver Hernia Migraine PTSD (post-traumatic stress disorder) Spleen enlarged Family History Family History Mother Diabetes Anxiety Depressed Arthritis Migraine Family history of problems with anesthesia: No Surgical History Surgical History Status post anal fissurectomy History of Problems with Anesthesia: No Social History Social History Household Members: Children Housing: Apartment Do you presently have visiting nurse or 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 If so, by whom?: No Do you feel safe in your current relationship?: Yes Is there a partner from a previous relationship who is making you feel unsafe now?: No Are you made to feel afraid or neglected: No Advance Directives: No Advance Directives Information Provided: No Do you have thoughts of harming others: None Do you have a plan to hurt others: No Plan Recently lost weight without trying: No Nutrition Risks: No Nutritional Risk Patient : No service: No Current occupational status: unemployed Meds Allergies Allergy/AdvReac Type Severity Reaction Status Date / Time acetaminophen [From TYLENOL] Allergy Unknown LIVER Verified 06/22/20 00:42 SWELLING Active Medications: Current Medications Albuterol Sulfate (Albuterol Sulfate 90 Mcg 8 Gm Inhaler) 2 puff INHALE Q4H PRN PRN Reason: Wheezing Atorvastatin Calcium (Atorvastatin Calcium 40 Mg Tablet) 40 mg PO BEDTIME [facility] Last Admin: 03/12/21 22:33 Dose: 40 mg Documented by: Buspirone HCl (Buspirone Hcl 10 Mg Tablet) 10 mg PO TID [facility] Last Admin: 03/13/21 08:35 Dose: 10 mg Documented by: Cyclobenzaprine HCl (Cyclobenzaprine Hcl 10 Mg Tablet) 10 mg PO TID [facility] Last Admin: 03/13/21 08:35 Dose: 10 mg Documented by: Duloxetine HCl (Duloxetine Hcl 60 Mg Capsule.Dr) 60 mg PO DAILY [facility] Last Admin: 03/13/21 08:35 Dose: 60 mg Documented by: Fluticasone Propionate (Fluticasone Propionate 100 Mcg Blst.W.Dev) 2 puff INHALE RBID [facility] Last Admin: 03/13/21 07:54 Dose: Not Given Documented by: Heparin Sodium (Porcine) (Heparin Sodium,Porcine 5,000 Unit/Ml Vial) 5,000 unit SUBCUT Q8H [facility] Last Admin: 03/13/21 15:08 Dose: Not Given Documented by: Ceftriaxone Sodium 1 gm/ (Sodium Chloride) 50 mls @ 100 mls/hr IV Q24H [facility] Last Infusion: 03/13/21 16:05 Dose: Infused Documented by: Sodium Chloride (Ns) 1,000 mls @ 75 mls/hr IVCONT .[id number] [facility] Last Admin: 03/13/21 15:11 Dose: 75 mls/hr Documented by: Insulin Glargine (Insulin Glargine,Hum.Rec.Anlog 100 Unit/Ml 10 Ml Vial) 30 unit SUBCUT BID [facility] Last Admin: 03/13/21 08:38 Dose: 30 unit Documented by: Insulin Human Lispro (Insulin Lispro 100 Unit/Ml 3 Ml Vial) 0 unit SUBCUT QIDACHS [facility]; Protocol Last Admin: 03/13/21 11:27 Dose: Not Given Documented by: Insulin Human Lispro (Insulin Lispro 100 Unit/Ml 3 Ml Vial) 5 unit SUBCUT TIDWM [facility] Last Admin: 03/13/21 12:52 Dose: Not Given Documented by: Morphine Sulfate (Morphine Sulfate 4 Mg/Ml Cartridge) 4 mg IVPUSH Q4H PRN; Protocol PRN Reason: Pain, Severe (Pain Scale 7-10) Last Admin: 03/12/21 20:59 Dose: 4 mg Documented by: Omeprazole (Omeprazole 40 Mg Capsule.Dr) 40 mg PO DAILY@0630 [facility] Last Admin: 03/13/21 05:48 Dose: 40 mg Documented by: Ondansetron HCl (Ondansetron Hcl 4 Mg/2 Ml Vial) 4 mg IVPUSH Q8H PRN PRN Reason: Nausea and Vomiting Pharmacy Consult (Consult Rx Perform Med Rec) 1 each MISCELLANE ONCE PRN PRN Reason: Consult order Prazosin HCl (Prazosin Hcl 1 Mg Capsule) 2 mg PO BEDTIME [facility]; Protocol Last Admin: 03/12/21 22:34 Dose: Not Given Documented by: Pregabalin (Pregabalin 75 Mg Capsule) 225 mg PO BID [facility] Last Admin: 03/13/21 08:35 Dose: 225 mg Documented by: Sodium Chloride (0.9 % Sodium Chloride Flush 3 Ml Syringe) 3 ml IVFLUSH QSHIFT [facility] Last Admin: 03/13/21 08:35 Dose: Not Given Documented by: Home Medications Medication Instructions Recorded Confirmed Last Taken Type albuterol sulfate 90 mcg/actuation 2 puff PO Q4-6H PRN 03/12/21 03/12/21 Unknown History aerosol inhaler (ProAir HFA) atorvastatin 40 mg tablet 40 mg PO BEDTIME 03/12/21 03/12/21 Unknown History buspirone 10 mg tablet 10 mg PO TID 03/12/21 03/12/21 Unknown History canagliflozin 300 mg tablet 300 mg PO DAILY 03/12/21 03/12/21 Unknown History (Invokana) cyclobenzaprine 10 mg tablet 10 mg PO TID 03/12/21 03/12/21 Unknown History duloxetine 60 mg capsule,delayed 60 mg PO DAILY 03/12/21 03/12/21 Unknown History release fluticasone propionate 110 2 puff PO BID 03/12/21 03/12/21 Unknown History mcg/actuation HFA aerosol inhaler (Flovent HFA) insulin degludec 200 unit/mL (3 40 unit SUBCUT BID 03/12/21 03/12/21 Unknown History mL) subcutaneous pen (Tresiba FlexTouch U-200 insulin) insulin lispro 100 unit/mL 5 unit SUBCUT TIDWM 03/12/21 03/12/21 Unknown History subcutaneous pen (Humalog KwikPen (U-100) Insulin) lisinopril 2.5 mg tablet 2.5 mg PO DAILY 03/12/21 03/12/21 Unknown History metformin 500 mg tablet,extended 1,000 mg PO BID 03/12/21 03/12/21 Unknown History release 24 hr pantoprazole 40 mg tablet,delayed 40 mg PO DAILY 03/12/21 03/12/21 Unknown History release prazosin 2 mg capsule 2 mg PO BEDTIME 03/12/21 03/12/21 Unknown History pregabalin 225 mg capsule 225 mg PO BID 03/12/21 03/12/21 Unknown History tramadol 50 mg tablet 50 mg PO Q6H PRN 03/12/21 03/12/21 Unknown History Exam Exam Date and Time: March 13, 2021 1708 Height,Weight and Vital Signs: Height 5 ft 7 in Weight 174.633 kg Last Vital Signs Temp 98.5 F 03/13/21 11:23 Pulse 109 H 03/13/21 11:23 Resp 20 03/13/21 11:23 BP 116/62 03/13/21 11:23 Pulse Ox 94 03/13/21 11:23 Pertinent Lab Results Pertinent Lab Results: Laboratory Tests 03/12/21 03/12/21 03/12/21 10:24 10:24 10:36 WBC 7.5 RBC 5.14 Hgb 12.1 Hct 39.4 MCV 76.7 L MCH 23.5 L MCHC 30.7 L RDW 21.1 H Plt Count 159 L MPV 10.9 Immature Gran % (Auto) 0.1 Neut % (Auto) 56.7 Lymph % (Auto) 34.9 Story % (Auto) 6.2 Eos % (Auto) 1.7 Baso % (Auto) 0.4 Lymph # (Auto) 2.6 Story # (Auto) 0.5 Eos # (Auto) 0.1 Baso # (Auto) 0.0 Abs Immat Gran (auto) 0.01 Absolute Neuts (auto) 4.3 Absolute Nucleated RBC 0.000 Nucleated RBC % (auto) 0.0 Smear Tech's Comments VERIFIED Sodium 138 Potassium 4.3 Chloride 107 Carbon Dioxide 22 Anion Gap 13 BUN 10 Creatinine 1.21 Estim Creat Clear Calc 97.9 Estimated GFR 48 POC Glucose Random Glucose 136 H D Lactic Acid Lactic Acid F/U @ 2Hr Lactic Acid F/U @ 4Hr Calcium 9.7 Total Bilirubin 0.5 Direct Bilirubin 0.2 AST 29 ALT 23 Alkaline Phosphatase 128 H D Total Protein 8.3 H Albumin 3.9 Lipase 71 Urine Color Not Reportable Urine Appearance Not Reportable Urine pH Not Reportable Ur Specific Daphne Not Reportable Urine Protein Not Reportable Urine Glucose (UA) Not Reportable Urine Ketones Not Reportable Urine Blood Not Reportable Urine Nitrite Not Reportable Ur Leukocyte Esterase Not Reportable Urine RBC Not Reportable Urine WBC Not Reportable Urine WBC Clumps Cancelled Ur Squamous Epith Cells Not Reportable Ur Renal Epithelial Cell Cancelled [place] Biurate Crystals Cancelled Calcium Carbonate Cryst Cancelled Calcium Phosphate Cryst Cancelled Calcium Oxalate Crystal Cancelled Leucine Crystals Cancelled Cystine Crystals Cancelled Uric Acid Crystals Cancelled Triple Phos Crystals Cancelled [place] Crystals Cancelled Tyrosine Crystals Cancelled Other Crystals Cancelled Amorphous Sediment Cancelled Urine Bacteria Not Reportable Epithelial Casts Cancelled Fatty Casts Cancelled Hyaline Casts Cancelled Granular Casts Cancelled Waxy Casts Cancelled RBC Casts Cancelled WBC Casts Cancelled Other Casts Cancelled Urine Mucus Cancelled Urine Trichomonas Cancelled Urine Yeast Cancelled Urine Sperm Cancelled Ur Oval Fat Bodies Cancelled Urine Test COVID-19 (SHAWN) COVID-19 Clin Com 03/12/21 03/12/21 03/12/21 10:36 10:36 15:48 WBC RBC Hgb Hct MCV MCH MCHC RDW Plt Count MPV Immature Gran % (Auto) Neut % (Auto) Lymph % (Auto) Story % (Auto) Eos % (Auto) Baso % (Auto) Lymph # (Auto) Story # (Auto) Eos # (Auto) Baso # (Auto) Abs Immat Gran (auto) Absolute Neuts (auto) Absolute Nucleated RBC Nucleated RBC % (auto) Smear Tech's Comments Sodium Potassium Chloride Carbon Dioxide Anion Gap BUN Creatinine Estim Creat Clear Calc Estimated GFR POC Glucose Random Glucose Lactic Acid 4.0 H* Lactic Acid F/U @ 2Hr Lactic Acid F/U @ 4Hr Calcium Total Bilirubin Direct Bilirubin AST ALT Alkaline Phosphatase Total Protein Albumin Lipase Urine Color STRAW Urine Appearance HAZY Urine pH 6.0 Ur Specific Daphne 1.010 Urine Protein NEG Urine Glucose (UA) >=1000 H Urine Ketones NEG Urine Blood NEG Urine Nitrite POS H Ur Leukocyte Esterase NEG Urine RBC 0 Urine WBC 15-29 H Urine WBC Clumps Ur Squamous Epith Cells TRACE Ur Renal Epithelial Cell [place] Biurate Crystals Calcium Carbonate Cryst Calcium Phosphate Cryst Calcium Oxalate Crystal Leucine Crystals Cystine Crystals Uric Acid Crystals Triple Phos Crystals Talc Crystals Tyrosine Crystals Other Crystals Amorphous Sediment Urine Bacteria 4+ Epithelial Casts Fatty Casts Hyaline Casts Granular Casts Waxy Casts RBC Casts WBC Casts Other Casts Urine Mucus Urine Trichomonas Urine Yeast Urine Sperm Ur Oval Fat Bodies Urine Test NEGATIVE COVID-19 (SHAWN) COVID-19 Clin [facility] 03/12/21 03/12/21 03/12/21 15:48 18:00 18:08 WBC RBC Hgb Hct MCV MCH MCHC RDW Plt Count MPV Immature Gran % (Auto) Neut % (Auto) Lymph % (Auto) Story % (Auto) Eos % (Auto) Baso % (Auto) Lymph # (Auto) Story # (Auto) Eos # (Auto) Baso # (Auto) Abs Immat Gran (auto) Absolute Neuts (auto) Absolute Nucleated RBC Nucleated RBC % (auto) Smear Tech's Comments Sodium Potassium Chloride Carbon Dioxide Anion Gap BUN Creatinine Estim Creat Clear Calc Estimated GFR POC Glucose 225 H Random Glucose Lactic Acid Lactic Acid F/U @ 2Hr 4.1 H* Lactic Acid F/U @ 4Hr Calcium Total Bilirubin Direct Bilirubin AST ALT Alkaline Phosphatase Total Protein Albumin Lipase Urine Color Urine Appearance Urine pH Ur Specific [place]aph[place] Urine Protein Urine Glucose (UA) Urine Ketones Urine Blood Urine Nitrite Ur Leukocyte Esterase Urine RBC Urine WBC Urine WBC Clumps Ur Squamous Epith Cells Ur Renal Epithelial Cell [place] Biurate Crystals Calcium Carbonate Cryst Calcium Phosphate Cryst Calcium Oxalate Crystal Leucine Crystals Cystine Crystals Uric Acid Crystals Triple Phos Crystals Talc Crystals Tyrosine Crystals Other Crystals Amorphous Sediment Urine Bacteria Epithelial Casts Fatty Casts Hyaline Casts Granular Casts Waxy Casts RBC Casts WBC Casts Other Casts Urine Mucus Urine Trichomonas Urine Yeast Urine Sperm Ur Oval Fat Bodies Urine Test COVID-19 (SHAWN) Negative COVID-19 Clin Com See Note 03/12/21 03/12/21 03/13/21 20:51 21:19 03:46 WBC 10.8 RBC 4.99 Hgb 11.7 L Hct 38.7 MCV 77.6 L MCH 23.4 L MCHC 30.2 L RDW 21.4 H Plt Count 114 L D MPV Not Reportable Immature Gran % (Auto) Neut % (Auto) Lymph % (Auto) Story % (Auto) Eos % (Auto) Baso % (Auto) Lymph # (Auto) Story # (Auto) Eos # (Auto) Baso # (Auto) Abs Immat Gran (auto) Absolute Neuts (auto) Absolute Nucleated RBC 0.000 Nucleated RBC % (auto) 0.0 Smear Tech's Comments Sodium Potassium Chloride Carbon Dioxide Anion Gap BUN Creatinine Estim Creat Clear Calc Estimated GFR POC Glucose 188 H Random Glucose Lactic Acid Lactic Acid F/U @ 2Hr Lactic Acid F/U @ 4Hr 4.5 H* Calcium Total Bilirubin Direct Bilirubin AST ALT Alkaline Phosphatase Total Protein Albumin Lipase Urine Color Urine Appearance Urine pH Ur Specific [place] Urine Protein Urine Glucose (UA) Urine Ketones Urine Blood Urine Nitrite Ur Leukocyte Esterase Urine RBC Urine WBC Urine WBC Clumps Ur Squamous Epith Cells Ur Renal Epithelial Cell [place] Biurate Crystals Calcium Carbonate Cryst Calcium Phosphate Cryst Calcium Oxalate Crystal Leucine Crystals Cystine Crystals Uric Acid Crystals Triple Phos Crystals Talc Crystals Tyrosine Crystals Other Crystals Amorphous Sediment Urine Bacteria Epithelial Casts Fatty Casts Hyaline Casts Granular Casts Waxy Casts RBC Casts WBC Casts Other Casts Urine Mucus Urine Trichomonas Urine Yeast Urine Sperm Ur Oval Fat Bodies Urine Test COVID-19 (SHAWN) COVID-19 Clin Com 03/13/21 03/13/21 03/13/21 03:46 03:46 06:28 WBC RBC Hgb Hct MCV MCH MCHC RDW Plt Count MPV Immature Gran % (Auto) Neut % (Auto) Lymph % (Auto) Story % (Auto) Eos % (Auto) Baso % (Auto) Lymph # (Auto) Story # (Auto) Eos # (Auto) Baso # (Auto) Abs Immat Gran (auto) Absolute Neuts (auto) Absolute Nucleated RBC Nucleated RBC % (auto) Smear Tech's Comments Sodium 136 Potassium 4.6 Chloride 102 Carbon Dioxide 25 Anion Gap 14 BUN 16 D Creatinine 1.41 H Estim Creat Clear Calc 84.1 Estimated GFR 40 POC Glucose Random Glucose 115 Lactic Acid 2.1 H* Lactic Acid F/U @ 2Hr 1.3 Lactic Acid F/U @ 4Hr Calcium 8.8 D Total Bilirubin Direct Bilirubin AST ALT Alkaline Phosphatase Total Protein Albumin Lipase Urine Color Urine Appearance Urine pH Ur Specific [place] Urine Protein Urine Glucose (UA) Urine Ketones Urine Blood Urine Nitrite Ur Leukocyte Esterase Urine RBC Urine WBC Urine WBC Clumps Ur Squamous Epith Cells Ur Renal Epithelial Cell [place] Biurate Crystals Calcium Carbonate Cryst Calcium Phosphate Cryst Calcium Oxalate Crystal Leucine Crystals Cystine Crystals Uric Acid Crystals Triple Phos Crystals Talc Crystals Tyrosine Crystals Other Crystals Amorphous Sediment Urine Bacteria Epithelial Casts Fatty Casts Hyaline Casts Granular Casts Waxy Casts RBC Casts WBC Casts Other Casts Urine Mucus Urine Trichomonas Urine Yeast Urine Sperm Ur Oval Fat Bodies Urine Test COVID-19 (SHAWN) COVID-19 Clin Com 03/13/21 03/13/21 03/13/21 07:15 10:47 15:57 WBC RBC Hgb Hct MCV MCH MCHC RDW Plt Count MPV Immature Gran % (Auto) Neut % (Auto) Lymph % (Auto) Story % (Auto) Eos % (Auto) Baso % (Auto) Lymph # (Auto) Story # (Auto) Eos # (Auto) Baso # (Auto) Abs Immat Gran (auto) Absolute Neuts (auto) Absolute Nucleated RBC Nucleated RBC % (auto) Smear Tech's Comments Sodium Potassium Chloride Carbon Dioxide Anion Gap BUN Creatinine Estim Creat Clear Calc Estimated GFR POC Glucose 131 H 127 H 138 H Random Glucose Lactic Acid Lactic Acid F/U @ 2Hr Lactic Acid F/U @ 4Hr Calcium Total Bilirubin Direct Bilirubin AST ALT Alkaline Phosphatase Total Protein Albumin Lipase Urine Color Urine Appearance Urine pH Ur Specific [place] Urine Protein Urine Glucose (UA) Urine Ketones Urine Blood Urine Nitrite Ur Leukocyte Esterase Urine RBC Urine WBC Urine WBC Clumps Ur Squamous Epith Cells Ur Renal Epithelial Cell [place] Biurate Crystals Calcium Carbonate Cryst Calcium Phosphate Cryst Calcium Oxalate Crystal Leucine Crystals Cystine Crystals Uric Acid Crystals Triple Phos Crystals Talc Crystals Tyrosine Crystals Other Crystals Amorphous Sediment Urine Bacteria Epithelial Casts Fatty Casts Hyaline Casts Granular Casts Waxy Casts RBC Casts WBC Casts Other Casts Urine Mucus Urine Trichomonas Urine Yeast Urine Sperm Ur Oval Fat Bodies Urine Test COVID-19 (SHAWN) COVID-19 Clin Com Airway Mallampati Class: III Neck ROM: Limited (neck pain ) Loose/Missing/Broken Teeth: Yes (chipped and missing teeth . ) Heart: ST Lungs: distant breath sounds Assessment and Plan Assessment Anesthesia Assessment: Anesthesia Plan Discussed Final Anesthetic Review Family History of Problems with Anesthesia: No History of Problems with Anesthesia: No NPO: Yes ASA Class: III and Emergency Final Preanesthetic Review: Meds/Allgs Chart Reviewed, Consent Obtained/Reviewed and Anes Risks/Benef Reviewed Patient Risk: High Procedure Risk: Intermediate Anesthetic Plan Anesthetic Plan: GA Disposition: Inp. Admit - Standard Bed
--- NOTE | 2021-03-13 17:09 | P.HPSUR_ITS ---
Pre-Procedural Eval Section A Date of Service: 03/13/21 The patient is an INPATIENT: Yes Changes since office visit: No Cold of Flu in the past 2 weeks, No New Medical Problems, No Changes in Medication and No Patient answered all questions The History & Physical has been completed within 30 days and I have reviewed it.: No Section B Chief Complaint: [place],UTI,uretric stone Allergies: Allergies Allergy/AdvReac Type Severity Reaction Status Date / Time acetaminophen [From Allergy Unknown LIVER Verified 06/22/20 00:42 TYLENOL] SWELLING Plan Diagnosis/Plan: Unchanged (Cystoscopy, left retrograde, left ureteroscopy laser lithotripsy stent placement) I have reviewed the history and physical and performed a pertinent physical examination on my patient. No changes have occurred unless specified.
--- NOTE | 2021-03-13 17:53 | P.OP_ITS ---
Operative Note Operative Note Date of Service: 03/13/21 Narrative: PreOperative Diagnosis: left distal ureteric stone Post Operative Diagnosis: left hydroureteronephrosis Procedure: - cystoscopy, left retrograde - left dilatation of ureteric orifice under fluoroscopy - left ureteroscopy - left stent placement Surgeon: Dr Raymundo Bourne Anesthesia: General Indications for procedure: 45-year-old female. Presented through emergency room with left flank pain. Distal left ureteric stone seen. On examination small in complaint of persi stent pain in non resolution. Recommend intervention. Due to stone location recommended ureteroscopy. Procedure: After informed consent was verified patient was brought to the operating placed in supine position. Anesthesia was administered per protocol. Patient was placed in modified dorsal lithotomy position and prepped and draped in a sterile fashion. Safety pause time-out and side of surgery confirmed. Antibiotics confirmed. A 22 Russian cystoscope was inserted per urethra. Bladder was normal in its entirety. Both ureteric orifices were in normal position. The Left ureteric orifice was cannulated and a retrograde examination was performed. mild hydroureteronephrosis noted. No filling defects seen. A Sensor guidewire was placed up to the level of the renal pelvis under fluoroscopy. The rigid cystoscope was removed. A Mansfield dilator was placed over the Sensor guidewire and used to dilate the ureteric orifice under fluoroscopy. The dilator was removed. The semi rigid ureteral scope was placed alongside the Sensor guidewire. No stone encountered. There was mild hydroureteronephrosis. Given her persistent discomfort plan to place double-J stent A 6 Russian by 24 cm double-J stent was placed into the renal pelvis and bladder under a combination of fluoroscopy and direct visualization. The bladder was emptied. The patient tolerated the procedure well and was extubated in the operating room, and transferred in stable condition to the recovery area. Pathology: none Drains: 6 Russian by 24 cm double-J stent
[2021-03-13] MEDS: Ketorolac Tromethamine 30 MG/ML VIAL 15 MG IVPUSH (19:15)
[2021-03-13 20:17] LABS: Glucose, Whole Blood 156 mg/dL (60-115)
[2021-03-13] MEDS: Atorvastatin Calcium 40 MG TABLET PO (20:56)
[2021-03-14] MEDS: HYDROmorphone HCl 0.5 MG/0.5 ML SYRINGE 0.25 MG IVPUSH ×2 (00:17→05:36)
[2021-03-14] MEDS: Morphine Sulfate 4 MG/ML CARTRIDGE IVPUSH ×3 (02:29→13:11)
[2021-03-14 03:16] VITALS: BP 125/70; PULSE 105; RESP 20; TEMP 36.3; O2SAT 97
[2021-03-14] MEDS: Heparin Sodium,Porcine 5,000 UNIT/ML VIAL 5000 UNIT SUBCUT ×2 (05:35→13:11)
[2021-03-14] MEDS: Omeprazole 40 MG CAPSULE.DR PO (05:36)
--- NOTE | 2021-03-14 06:55 | HO.POSTANES ---
Post Anesthesia Evaluation Post Anesthesia Evaluation Vital Signs: Vital Signs Temp Pulse Resp BP Pulse Ox 03/14/21 03:16 97.4 F 105 H 20 125/70 97 03/13/21 23:56 98.2 F 92 18 109/84 98 03/13/21 20:30 107/63 03/13/21 20:00 98.8 F 97 16 78/51 L 99 03/13/21 19:06 98.3 F 109 H 20 118/71 95 Anesthesia: General Mental Status: Awake Pain Control: Satisfactory (patient had pain most of the night) Nausea/Vomiting: Mild Hydration: Adequate Anesthesia-Related Issues: No Anes. Related Issues
[2021-03-14 07:12] VITALS: BP 126/75; PULSE 96; RESP 18; TEMP 36.5; O2SAT 96
[2021-03-14 07:16] LABS: Hematocrit 32.6 % (37.0-47.0); Hemoglobin 9.9 g/dl (12.0-16.0); Mean Corpuscular HGB Conc 30.4 g/dl (31.0-35.0); Mean Corpuscular Hemoglobin 23.5 pg (27.0-33.0); Mean Corpuscular Volume 77.3 fL (80.0-98.0); Red Blood Count 4.22 X10*6/uL (4.20-5.50); White Blood Count 6.2 X10*3/uL (4.8-10.8)
[2021-03-14 07:18] LABS: Glucose, Whole Blood 117 mg/dL (60-115)
[2021-03-14 07:18] LABS: Platelet Count 96 X10*3/uL (160-400)
[2021-03-14 07:25] LABS: Anion Gap 11 (12-20); Blood Urea Nitrogen 19 mg/dL (9-16); Calcium 8.5 mg/dL (8.4-10.2); Carbon Dioxide 25 mmol/L (22-29); Chloride 106 mmol/L (96-108); Creatinine Clr Calc Pharmacy 113.9; Estimated Glomerular Filt Rate 57; Glucose Random 105 mg/dL (60-115); Potassium 4.4 mmol/L (3.3-5.1); Sodium 138 mmol/L (135-145)
--- NOTE | 2021-03-14 07:48 | PM.UROPN ---
Subjective Subjective Date of Service: 03/14/21 Interval history: Procedure yesterday Cr down to 1.04 from 1.4 stent can be removed next week in office Physical Exam Vital Signs: Vital Signs: Last Vital Signs Temp 97.7 F 03/14/21 07:12 Pulse 96 03/14/21 07:12 Resp 18 03/14/21 07:12 BP 126/75 03/14/21 07:12 Pulse Ox 96 03/14/21 07:12 BMI result Body Mass Index 60.2 Const: General: cooperative, healthy appearing, comfortable and no acute distress Orientation/consciousness: patient oriented x3 HENMT: Face and sinus: Yes normal facial exam Mouth: moist mucous membranes Neck: Neck: Yes normal visual inspection, Yes full ROM and Yes trachea midline Chest: Chest palpation & inspection: normal inspection of the chest Resp: Effort & Inspection: normal respiratory effort, able to speak in complete sentences and no respiratory distress GI: Inspection: Yes normal to inspection Back/Spine/Pelvis: Cervical Spine: normal cervical lordosis Thoracic/Lumbar Spine: thoracic and lumbar spine normal to inspection Skin: General skin exam: no rashes or lesions noted Neuro: General: patient oriented x3, tone normal and moves all extremities Extrem: General: Yes normal to inspection and Yes capillary refill normal Urology Results Labs CBC & Chem 7: 03/14/21 06:12 03/14/21 06:12 Labs: Laboratory Results - last 24 hr 03/13/21 03/13/21 03/13/21 10:47 15:57 20:07 WBC RBC Hgb Hct MCV MCH MCHC RDW Plt Count MPV Absolute Nucleated RBC Nucleated RBC % (auto) Sodium Potassium Chloride Carbon Dioxide Anion Gap BUN Creatinine Estim Creat Clear Calc Estimated GFR POC Glucose 127 H 138 H 156 H Random Glucose Calcium 03/14/21 03/14/21 03/14/21 06:12 06:12 07:15 WBC 6.2 RBC 4.22 Hgb 9.9 L Hct 32.6 L MCV 77.3 L MCH 23.5 L MCHC 30.4 L RDW 21.0 H Plt Count 96 L MPV Not Reportable Absolute Nucleated RBC 0.000 Nucleated RBC % (auto) 0.0 Sodium 138 Potassium 4.4 Chloride 106 Carbon Dioxide 25 Anion Gap 11 L BUN 19 H Creatinine 1.04 Estim Creat Clear Calc 113.9 Estimated GFR 57 POC Glucose 117 H Random Glucose 105 Calcium 8.5 Progress Note: A&P Assessment and plan (1) Ureteral stone with hydronephrosis: Status: Acute Plan f/u next week stent removal Fall Risk Details Current Medications: Current Medications Albuterol Sulfate (Albuterol Sulfate 90 Mcg 8 Gm Inhaler) 2 puff INHALE Q4H PRN PRN Reason: Wheezing Albuterol Sulfate (Albuterol Sulfate (0.083%) 2.5 Mg/3 Ml Vial.Neb) 2.5 mg INHALE ONCE PRN PRN Reason: Wheezing Atorvastatin Calcium (Atorvastatin Calcium 40 Mg Tablet) 40 mg PO BEDTIME COUNTS INCLUDE 234 BEDS AT THE [facility] Last Admin: 03/13/21 20:56 Dose: 40 mg Documented by: Buspirone HCl (Buspirone Hcl 10 Mg Tablet) 10 mg PO TID COUNTS INCLUDE 234 BEDS AT THE [facility] Last Admin: 03/13/21 20:56 Dose: 10 mg Documented by: Cyclobenzaprine HCl (Cyclobenzaprine Hcl 10 Mg Tablet) 10 mg PO TID COUNTS INCLUDE 234 BEDS AT THE [facility] Last Admin: 03/13/21 20:56 Dose: 10 mg Documented by: Duloxetine HCl (Duloxetine Hcl 60 Mg Capsule.Dr) 60 mg PO DAILY COUNTS INCLUDE 234 BEDS AT THE [facility] Last Admin: 03/13/21 08:35 Dose: 60 mg Documented by: Fentanyl (Fentanyl Citrate/Pf 100 Mcg/2 Ml Vial) 25 mcg IVPUSH Q5M PRN; Protocol PRN Reason: Pain, Moderate (Pain Scale 4-6 Fluticasone Propionate (Fluticasone Propionate 100 Mcg Blst.W.Dev) 2 puff INHALE RBID COUNTS INCLUDE 234 BEDS AT THE [facility] Last Admin: 03/13/21 19:36 Dose: Not Given Documented by: Heparin Sodium (Porcine) (Heparin Sodium,Porcine 5,000 Unit/Ml Vial) 5,000 unit SUBCUT Q8H COUNTS INCLUDE 234 BEDS AT THE [facility] Last Admin: 03/14/21 05:35 Dose: 5,000 unit Documented by: Hydromorphone HCl (Hydromorphone Hcl 0.5 Mg/0.5 Ml Syringe) 0.25 mg IVPUSH Q5M PRN; Protocol PRN Reason: Pain, Severe (Pain Scale 7-10) Last Admin: 03/14/21 05:36 Dose: 0.25 mg Documented by: Ceftriaxone Sodium 1 gm/ (Sodium Chloride) 50 mls @ 100 mls/hr IV Q24H COUNTS INCLUDE 234 BEDS AT THE [facility] Last Infusion: 03/13/21 16:05 Dose: Infused Documented by: Sodium Chloride (Ns) 1,000 mls @ 75 mls/hr IVCONT .[id number] COUNTS INCLUDE 234 BEDS AT THE [facility] Last Admin: 03/13/21 21:02 Dose: 75 mls/hr Documented by: Promethazine HCl 12.5 mg/ (Sodium Chloride) 50.5 mls @ 202 mls/hr IV ONCE PRN PRN Reason: Nausea and Vomiting Insulin Glargine (Insulin Glargine,Hum.Rec.Anlog 100 Unit/Ml 10 Ml Vial) 30 unit SUBCUT BID COUNTS INCLUDE 234 BEDS AT THE [facility] Last Admin: 03/13/21 20:58 Dose: 30 unit Documented by: Insulin Human Lispro (Insulin Lispro 100 Unit/Ml 3 Ml Vial) 0 unit SUBCUT QIDACHS COUNTS INCLUDE 234 BEDS AT THE [facility]; Protocol Last Admin: 03/13/21 20:39 Dose: Not Given Documented by: Insulin Human Lispro (Insulin Lispro 100 Unit/Ml 3 Ml Vial) 5 unit SUBCUT TIDWM COUNTS INCLUDE 234 BEDS AT THE [facility] Last Admin: 03/13/21 20:17 Dose: Not Given Documented by: Morphine Sulfate (Morphine Sulfate 4 Mg/Ml Cartridge) 4 mg IVPUSH Q4H PRN; Protocol PRN Reason: Pain, Severe (Pain Scale 7-10) Last Admin: 03/14/21 02:29 Dose: 4 mg Documented by: Omeprazole (Omeprazole 40 Mg Capsule.) 40 mg PO DAILY@0630 COUNTS INCLUDE 234 BEDS AT THE [facility] Last Admin: 03/14/21 05:36 Dose: 40 mg Documented by: Ondansetron HCl (Ondansetron Hcl 4 Mg/2 Ml Vial) 4 mg IVPUSH Q8H PRN PRN Reason: Nausea and Vomiting Ondansetron HCl (Ondansetron Hcl 4 Mg/2 Ml Vial) 4 mg IVPUSH ONCE PRN PRN Reason: Nausea and Vomiting Pharmacy Consult (Consult Rx Perform Med Rec) 1 each MISCELLANE ONCE PRN PRN Reason: Consult order Prazosin HCl (Prazosin Hcl 1 Mg Capsule) 2 mg PO BEDTIME COUNTS INCLUDE 234 BEDS AT THE [facility]; Protocol Last Admin: 03/13/21 20:58 Dose: Not Given Documented by: Pregabalin (Pregabalin 75 Mg Capsule) 225 mg PO BID COUNTS INCLUDE 234 BEDS AT THE [facility] Last Admin: 03/13/21 20:56 Dose: 225 mg Documented by: Sodium Chloride (0.9 % Sodium Chloride Flush 3 Ml Syringe) 3 ml IVFLUSH QSHIFT COUNTS INCLUDE 234 BEDS AT THE [facility] Last Admin: 03/14/21 00:11 Dose: Not Given Documented by: Time Spent With Patient Time: Total time spent is greater than 50% in coordination of care (as documented) at patient's floor/unit and/or counseling patient: Time with patient: less than 15 minutes Progress Note: Quality Stroke Does the patient have a stroke diagnosis?: No
[2021-03-14] MEDS: DULoxetine HCl 60 MG CAPSULE.DR PO (08:06)
[2021-03-14] MEDS: busPIRone HCl 10 MG TABLET PO (08:06)
[2021-03-14] MEDS: Pregabalin 75 MG CAPSULE 225 MG PO (08:06)
[2021-03-14] MEDS: Cyclobenzaprine HCl 10 MG TABLET PO (08:07)
[2021-03-14] MEDS: Insulin Glargine,Hum.rec.anlog 100 UNIT/ML 10 ML VIAL 30 UNIT SUBCUT (08:13)
[2021-03-14 10:51] VITALS: BP 134/83; PULSE 96; RESP 20; TEMP 36.8; O2SAT 96
[2021-03-14 11:23] LABS: Glucose, Whole Blood 152 mg/dL (60-115)
--- NOTE | 2021-03-14 11:42 | P.DS_ITS ---
DS: Providers Provider Date of Service: 03/14/21 Date of admission: 03/12/21 15:33 Primary care physician: Azucena Brooks Consults: 03/12/21 15:33 Consult to Urology Routine Consulting Provider: Raymundo Bourne Reason for consultation: Mild left hydronephrosis and left ureteral dilatation from a 3 mm left UVJ DS: Diagnosis Discharge Diagnosis (1) Ureteral stone with hydronephrosis: Status: Acute DS: Summary Hospital Course Hospital Course: patient was admitted for severe sepsis secondary to obstructing infected left ureteral stone complicated by GNR bacteremia and CARON. pateint treated with rocephin, symptoms improved, caron resolved. underwent cystocscopy and stent placement. urine culture growing klebsiells, blood culture still pending but presumebly the same. will complete 7 more days of ceftin and follow up with . patient also noted to have cirrhosis with thrombocytopenia. GAYTAN likely etiology, patient has been referred to GI. Time Spent with Patient Time attestation: Total time spent providing and/or coordinating discharge services: Discharge coordination time: Greater than 30 minutes Quality: Stroke Does the patient have a stroke diagnosis?: No Physical Exam Verdana 4l Vital Signs: Verdana 4d Verdana 4d Vital Signs: Verdana 4d Verdana 4Bd Last Vital Signs Verdana 4d Strand And Binder Controller New 4d Strand And Binder Controller New 4d Temp 98.3 F 03/14/21 10:51 Strand And Binder Controller New 4d Pulse 96 03/14/21 10:51 Strand And Binder Controller New 4d Resp 20 03/14/21 10:51 BP 134/83 03/14/21 10:51 Pulse Ox 96 03/14/21 10:51 BMI result Body Mass Index 60.2 General: AO X 3, no acute distress Resp: CTA bilateral, no accessory muscles used CVS: S1,S2,RRR GI: soft, non tender, non distended Neuro: motor grossly intact, alert Psych: appropriate affect, appropriate insight DS: Data Data Completed and Pending Labs on day of discharge: Laboratory Results - last 24 hr 03/13/21 03/13/21 03/14/21 15:57 20:07 06:12 WBC 6.2 RBC 4.22 Hgb 9.9 L Hct 32.6 L MCV 77.3 L MCH 23.5 L MCHC 30.4 L RDW 21.0 H Plt Count 96 L MPV Not Reportable Absolute Nucleated RBC 0.000 Nucleated RBC % (auto) 0.0 Sodium Potassium Chloride Carbon Dioxide Anion Gap BUN Creatinine Estim Creat Clear Calc Estimated GFR POC Glucose 138 H 156 H Random Glucose Calcium 03/14/21 03/14/21 03/14/21 06:12 07:15 10:49 WBC RBC Hgb Hct MCV MCH MCHC RDW Plt Count MPV Absolute Nucleated RBC Nucleated RBC % (auto) Sodium 138 Potassium 4.4 Chloride 106 Carbon Dioxide 25 Anion Gap 11 L BUN 19 H Creatinine 1.04 Estim Creat Clear Calc 113.9 Estimated GFR 57 POC Glucose 117 H 152 H Random Glucose 105 Calcium 8.5 Preliminary micro results at discharge 03/12/21 15:48 Blood Culture - Preliminary Blood - Venous Gram negative quinn 03/12/21 15:48 Blood Culture - Preliminary Blood - Venous No growth after 24 hours. Discharge Plan Discharge Patient Disposition: Home, Self-Care Discharge Diagnosis: uti Referrals: Azucena Brooks [Primary Care Provider] - 1 Week Raymundo Bourne MD [Physician] - 1 Week Janae Henderson MD [Physician] - 1 Week (cirrhosis) Discharge Medications: New cefuroxime axetil 500 mg tablet 500 mg PO Q12H Qty: 14 0RF Continued cyclobenzaprine 10 mg tablet 10 mg PO TID 0RF atorvastatin 40 mg tablet 40 mg PO BEDTIME 0RF tramadol 50 mg tablet 50 mg PO Q6H PRN (Reason: Pain) 0RF pantoprazole 40 mg tablet,delayed release (DR/EC) 40 mg PO DAILY 0RF buspirone 10 mg tablet 10 mg PO TID 0RF albuterol sulfate [ProAir HFA] 90 mcg/actuation HFA aerosol inhaler 2 puff PO Q4-6H PRN (Reason: Wheezing) 0RF metformin 500 mg tablet extended release 24 hr 1,000 mg PO BID 0RF lisinopril 2.5 mg tablet 2.5 mg PO DAILY 0RF prazosin 2 mg capsule 2 mg PO BEDTIME 0RF Flovent HFA 110 mcg/actuation HFA aerosol inhaler 2 puff PO BID 0RF insulin lispro [Humalog KwikPen Insulin] 100 unit/mL insulin pen 5 unit subcut TIDWM 0RF duloxetine 60 mg capsule,delayed release(DR/EC) 60 mg PO DAILY 0RF pregabalin 225 mg capsule 225 mg PO BID 0RF Invokana 300 mg tablet 300 mg PO DAILY 0RF Tresiba FlexTouch U-200 200 unit/mL (3 mL) insulin pen 40 unit subcut BID 0RF Discharge Orders: Discharge Order (Routine); Ordered 03/14/21 Ordered By: Lopez Longoria Diet: advance to usual diet Activity on Discharge: As tolerated Stand Alone Forms: Patient Portal Discharge page Care Plan Goals: recovery Health Concerns: ureteral stone with infection, liver cirrhosis Plan of Treatment: 7 more days ceftin, follow up urology, follow up with GI Assessment: see above
== END 2021-03-14 13:45 | disposition home or self-care (01) | DRG 463 ==
LOC: HO.ED 15:23 → HO.EDOVER 15:45 → HO.IMC 17:24
PROVIDERS: Hospitalist; Nurse Practitioner Family; Urology; Admitting Provider Student in an Organized Health Care Education/Training Program; Emergency Provider Emergency Medicine Emergency Medical Services; PCP Nurse Practitioner; Visit Provider Internal Medicine
PROC: 0T778DZ Dilation of Left Ureter with Intraluminal Device, Via Natural or Artificial Opening Endoscopic (ICD-10-PCS; principal; 2021-03-13 16:30)
DX: N13.6 Pyonephrosis (principal); A41.50 Gram-negative sepsis, unspecified; N17.9 Acute kidney failure, unspecified; Z68.44 Body mass index [BMI] 60.0-69.9, adult; E10.9 Type 1 diabetes mellitus without complications; B96.1 Klebsiella pneumoniae [K. pneumoniae] as the cause of diseases classified elsewhere; R65.20 Severe sepsis without septic shock; E86.0 Dehydration; F43.10 Post-traumatic stress disorder, unspecified; J45.909 Unspecified asthma, uncomplicated; E66.01 Morbid (severe) obesity due to excess calories; F17.210 Nicotine dependence, cigarettes, uncomplicated; Z71.6 Tobacco abuse counseling; Z20.822 Contact with and (suspected) exposure to COVID-19; Z88.6 Allergy status to analgesic agent; Z79.4 Long term (current) use of insulin; Z79.84 Long term (current) use of oral hypoglycemic drugs; Z79.899 Other long term (current) drug therapy
CPT/HCPCS: 36415; 74177; 80048; 80076; 81001; 81025; 82947; 83605; 83690; 85025; 85027; 87040; 87077; 87086; 87088; 87186; 87205; 87635; 93005; 96361; 96365; 96375; 96376; 99285; C1758; C1769; C2617; J0696; J1170; J1885; J1956; J2250; J2270; J2405; J3010; Q9967

== ENCOUNTER → 2021-03-20 13:18 | Outpatient (BNVA) | payer MEDICAID, SELFPAY | PROVIDERS: PCP Nurse Practitioner; Visit Provider Physician Assistant | DX: K74.60 Unspecified cirrhosis of liver (principal); G89.29 Other chronic pain; R10.9 Unspecified abdominal pain; D64.9 Anemia, unspecified | CPT/HCPCS: 99202 ==

== ENCOUNTER → 2021-03-21 12:59 | Outpatient (BNVA) | payer MEDICAID, SELFPAY | PROVIDERS: PCP Nurse Practitioner; Visit Provider Urology | DX: N13.2 Hydronephrosis with renal and ureteral calculous obstruction (principal) | CPT/HCPCS: 52310; 99212 ==

== ENCOUNTER → 2021-03-23 14:48 | Outpatient (BNVA) | payer MEDICAID, SELFPAY | PROVIDERS: PCP Nurse Practitioner; Visit Provider Nurse Practitioner Family | DX: M47.27 Other spondylosis with radiculopathy, lumbosacral region (principal) | CPT/HCPCS: 99202 ==

== ENCOUNTER 2022-11-06 15:51 | Outpatient (REF) | payer MEDICAID, SELFPAY ==
[2022-11-06 17:34] LABS: Estimated Average Glucose 120 mg/dL; Hemoglobin A1c % 5.8 % (<6.0)
[2022-11-06 17:42] LABS: Alanine Aminotransferase 22 U/L (0-31); Albumin Level 3.9 g/dL (3.5-5.0); Alkaline Phosphatase 114 U/L (39-117); Anion Gap 15 (12-20); Aspartate Amino Transferase 38 U/L (5-31); Bilirubin Total 0.7 mg/dL (0.0-1.0); Blood Urea Nitrogen 16 mg/dL (9-16); Calcium 9.6 mg/dL (8.4-10.2); Carbon Dioxide 20 mmol/L (22-29); Chloride 110 mmol/L (96-108); Cholesterol 83 mg/dL (<200); Estimated Glomerular Filt Rate 54; Glucose Random 88 mg/dL (60-115); HDL Cholesterol 23 mg/dL (>40); LDL Cholesterol Calculated 33 mg/dL (<100); Potassium 4.1 mmol/L (3.3-5.1); Sodium 141 mmol/L (135-145); Total Protein 8.3 g/dL (6.5-8.0); Triglycerides 138 mg/dL (<150)
[2022-11-06 17:56] LABS: TSH reflex Free T4 0.81 uIU/mL (0.32-4.0)
[2022-11-07 04:25] LABS: HBS Num1 0.54 mIU/mL (0-7.99); HBc Num1 0.22 S/CO (0.00-0.79); HBsAGNum1 0.34 S/CO (0.00-0.99); HIV AB/AG Nonreactive (Nonreactive); HIV Num 1 0.05 S/CO (0.00-0.99); Hepatitis B Core Antibody Nonreactive (Nonreactive); Hepatitis B Surface Antigen Negative (Negative); ~HepC Num1 0.22 S/CO (0.00-0.79); ~Hepatitis A Antibody IgM Nonreactive (Nonreactive); ~Hepatitis B Surface Antibody NONREACTIVE (Nonreactive); ~Hepatitis C Antibody Nonreactive (Nonreactive)
[2022-11-07 04:53] LABS: Syphilis Screen Nonreactive (Nonreactive)
== END 2022-11-06 15:52 | disposition home or self-care (01) ==
LOC: HO.HHCL 15:51
PROVIDERS: Visit Provider Registered Nurse
DX: Z00.00 Encounter for general adult medical examination without abnormal findings (principal); Z11.4 Encounter for screening for human immunodeficiency virus [HIV]; E11.69 Type 2 diabetes mellitus with other specified complication; Z79.4 Long term (current) use of insulin
CPT/HCPCS: 36415; 80053; 80061; 83036; 84443; 86704; 86706; 86709; 86780; 86803; 87340; 87389

== ENCOUNTER 2023-02-14 14:04 | Outpatient (REF) | payer MEDICAID, SELFPAY | END 2023-02-14 14:05 | disposition home or self-care (01) | LOC: HO.US 14:04 | PROVIDERS: PCP Nurse Practitioner; Visit Provider Registered Nurse | DX: K74.69 Other cirrhosis of liver (principal) | CPT/HCPCS: 76700 ==

== ENCOUNTER 2023-03-03 11:20 | Outpatient (REF) | payer MEDICAID, SELFPAY ==
[2023-03-03 13:21] LABS: MANUAL DIFF FLAG NO
[2023-03-03 13:24] LABS: Basophils Percent Auto 0.7 % (0-2); Eosinophils Absolute Auto 0.1 X10*3/uL (0.0-0.4); Eosinophils Percent Auto 1.9 % (0-4); Hemoglobin 14.3 g/dl (12.0-16.0); Imm Gran Abs Auto 0.01 X10*3/uL (0.00-0.03); Imm Gran Pct Auto 0.2 % (0.0-0.4); Lymphocytes Absolute Auto 1.4 X10*3/uL (1.2-4.9); Lymphocytes Percent Auto 32.6 % (20-40); Mean Corpuscular HGB Conc 33.3 g/dl (31.0-35.0); Mean Corpuscular Hemoglobin 30.8 pg (27.0-33.0); Mean Corpuscular Volume 92.5 fL (80.0-98.0); Mean Platelet Volume 11.3 fL (9.4-12.3); Monocytes Absolute Auto 0.2 X10*3/uL (0.1-1.2); Monocytes Percent Auto 4.8 % (2-11); Neutrophils Absolute Auto 2.5 x10*3/uL (2.0-8.3); Neutrophils Percent Auto 59.8 % (45-73); Red Blood Count 4.65 X10*6/uL (4.20-5.50); Red Cell Distribution Width 14.6 % (11.0-16.0); White Blood Count 4.1 X10*3/uL (4.8-10.8)
[2023-03-03 13:25] LABS: Platelet Count 89 X10*3/uL (160-400)
[2023-03-03 13:29] LABS: Prothrombin Time 11.7 SEC (11.1-13.3)
[2023-03-03 14:32] LABS: Alanine Aminotransferase 28 U/L (0-31); Albumin Level 3.6 g/dL (3.5-5.0); Alkaline Phosphatase 117 U/L (39-117); Anion Gap 14 (12-20); Aspartate Amino Transferase 36 U/L (5-31); Bilirubin Total 0.5 mg/dL (0.0-1.0); Blood Urea Nitrogen 15 mg/dL (9-16); Calcium 9.5 mg/dL (8.4-10.2); Carbon Dioxide 22 mmol/L (22-29); Chloride 107 mmol/L (96-108); Estimated Glomerular Filt Rate 52; Glucose Random 202 mg/dL (60-115); Potassium 4.1 mmol/L (3.3-5.1); Sodium 139 mmol/L (135-145); Total Protein 7.7 g/dL (6.5-8.0)
[2023-03-05 08:13] LABS: Alpha Fetoprotein 3.9 ng/mL
== END 2023-03-03 11:21 | disposition home or self-care (01) ==
LOC: HO.HHCL 11:20
PROVIDERS: Visit Provider Registered Nurse
DX: K74.69 Other cirrhosis of liver (principal)
CPT/HCPCS: 36415; 80053; 82105; 85025; 85610

== ENCOUNTER 2023-03-07 13:45 | Outpatient (REF) | payer MEDICAID, SELFPAY ==
[2023-03-07 16:33] LABS: Estimated Average Glucose 160 mg/dL; Hemoglobin A1c % 7.2 % (<6.0)
[2023-03-07 16:40] LABS: Anion Gap 15 (12-20); Blood Urea Nitrogen 14 mg/dL (9-16); Calcium 9.9 mg/dL (8.4-10.2); Carbon Dioxide 20 mmol/L (22-29); Chloride 102 mmol/L (96-108); Estimated Glomerular Filt Rate 52; Glucose Random 234 mg/dL (60-115); Potassium 4.2 mmol/L (3.3-5.1); Sodium 133 mmol/L (135-145)
== END 2023-03-07 13:46 | disposition home or self-care (01) ==
LOC: HO.HHCL 13:45
PROVIDERS: Visit Provider Registered Nurse
DX: E11.69 Type 2 diabetes mellitus with other specified complication (principal); Z79.4 Long term (current) use of insulin
CPT/HCPCS: 36415; 80048; 83036

== ENCOUNTER 2023-04-22 15:54 | Emergency (ER) | payer MEDICAID, SELFPAY ==
[2023-04-22 17:14] VITALS: BP 111/68; PULSE 84; RESP 16; TEMP 36.3; O2SAT 97; BMI 47.9
--- NOTE | 2023-04-22 17:45 | ED.GENADULT ---
HPI - General Adult General Chief complaint: General Medical Stated complaint: vaginal bleeding Time Seen by Provider: 04/22/23 21:20 Source: patient, RN notes reviewed and old records reviewed Mode of arrival: ambulatory Limitations: no limitations History of Present Illness HPI narrative: 47-year-old female presents for evaluation of ?hemorrhoids and a rash. ? Patient reports that she has felt a hemorrhoid for about 1 week She also noticed a rash to the area between her anus and genitals per her description. She states that the rash is very itchy Denies any new soaps, lotions, detergents Denies any swelling to the area She does admit that she has bright red blood in the toilet with bowel movements and also has rectal pain with bowel movements which she attributes to her hemorrhoids No other complaints or concerns at this time Related Data Home Medications Medication Instructions Recorded Confirmed albuterol sulfate 90 mcg/actuation 2 puff PO Q4-6H PRN Wheezing 03/12/21 03/23/21 aerosol inhaler (ProAir HFA) atorvastatin 40 mg tablet 40 mg PO BEDTIME 03/12/21 03/23/21 buspirone 10 mg tablet 10 mg PO TID anxiety 03/12/21 03/23/21 canagliflozin 300 mg tablet 300 mg PO DAILY 03/12/21 03/23/21 (Invokana) cyclobenzaprine 10 mg tablet 10 mg PO TID 03/12/21 03/23/21 duloxetine 60 mg capsule,delayed 60 mg PO DAILY 03/12/21 03/23/21 release fluticasone propionate 110 2 puff PO BID 03/12/21 03/23/21 mcg/actuation HFA aerosol inhaler (Flovent HFA) insulin degludec 200 unit/mL (3 40 unit subcut BID 03/12/21 03/23/21 mL) subcutaneous pen (Tresiba FlexTouch U-200 insulin) insulin lispro 100 unit/mL 5 unit subcut TIDWM 03/12/21 03/23/21 subcutaneous pen (Humalog KwikPen (U-100) Insulin) lisinopril 2.5 mg tablet 2.5 mg PO DAILY 03/12/21 03/23/21 metformin 500 mg tablet,extended 1,000 mg PO BID 03/12/21 03/23/21 release 24 hr pantoprazole 40 mg tablet,delayed 40 mg PO DAILY 03/12/21 03/23/21 release prazosin 2 mg capsule 2 mg PO BEDTIME 03/12/21 03/23/21 pregabalin 225 mg capsule 225 mg PO BID 03/12/21 03/23/21 tramadol 50 mg tablet 50 mg PO Q6H PRN Pain 03/12/21 03/23/21 Previous Rx's Medication Instructions Recorded bisacodyl 5 mg tablet,delayed 10 mg (2 x 5 mg) PO ONCE 03/20/21 release (Dulcolax (bisacodyl)) colonoscopy prep 1 day #2 tabs polyethylene glycol 3350 17 238 g PO ONCE 1 day #238 grams 03/20/21 gram/dose oral powder (Miralax) hydrocortisone 2.5 % topical cream 1 appl [place] BID 5 days #30 grams 04/22/23 with perineal applicator (Anusol-HC) nystatin 100,000 unit/gram topical 1 appl topical TID 14 days #60 04/22/23 powder grams Allergies Allergy/AdvReac Type Severity Reaction Status Date / Time acetaminophen [From TYLENOL] Allergy Unknown LIVER Verified 03/23/21 14:55 SWELLING Review of Systems Constitutional: Constitutional: Denies body ache(s) Eyes: Eyes: Denies blurry vision Cardiovascular: Cardiovascular: Denies chest pain Respiratory: Respiratory: Denies cough Gastrointestinal: Gastrointestinal: Denies abdominal pain and Reports hematochezia Integumentary/Breasts: Skin/Breast: Reports erythema and Reports rash PMFSH Past Medical History Medical History Asthma delivery delivered Cholecystectomy planned Chronic abdominal pain Cirrhosis Diabetes Enlarged liver Hernia Migraine PTSD (post-traumatic stress disorder) Spleen enlarged Surgical History Status post anal fissurectomy Family History Family History Mother Diabetes Anxiety Depressed Arthritis Migraine Social History Social History Household Members: Children Household Members Other:: she has 6 children and 12 grandchildren- [address] on the [address] Housing: Apartment Do you presently have 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) Alcohol intake: former Comment: back Patient Tobacco Use Status: Current everyday Tobacco user Tobacco use type: Cigarette Cigarettes Per Day: 6 Years Smoked: 15 Substance Use Type: Marijuana Advance Directives: No Advance Directives Information Provided: No service: No Current occupational status: unemployed Physical Exam ED Vital Signs: Vital Signs - 24 hr 04/22/23 17:14 04/22/23 19:24 04/22/23 21:23 Temperature 97.3 F 95.7 F L 98.3 F Pulse Rate 84 102 H 84 Respiratory Rate 16 16 16 Blood Pressure 111/68 115/80 104/64 Pulse Oximetry 97 96 96 Oxygen Delivery Method Room Air Room Air Room Air BMI result Body Mass Index 47.9 Const Other: Physical exam performed with female Emma ramirez present General: healthy appearing, comfortable, no acute distress, alert and awake Nutritional Appearance: well nourished Orientation/consciousness: patient oriented x3 HENMT Head: Yes normocephalic and Yes atraumatic Eyes Eyelids: Yes eyelids normal Conjunctivae: conjunctivae normal Sclerae: sclerae normal Corneas: corneas normal Pupils: Equal, round and reactive pupils present EOM: EOMs intact bilaterally Neck Neck: Yes full ROM Resp Effort & Inspection: normal respiratory effort, able to speak in complete sentences and not labored GI Other: Nonthrombosed hemorrhoid at the 6 o'clock position. No active bleeding Skin Other: Erythematous rash with white scaling and moist the perineum. No open wounds or lesions. No edema, fluctuance or severe tenderness to suggest abscess General skin exam: elasticity normal Neuro General: patient oriented x3 Cranial nerves: Yes Equal, round and reactive pupils present and Yes Bilaterally intact EOM present Cognition (Neuro): normal cognition Extrem Other: Moving all extremities well without any obvious deformities Course Course Course Narrative: RME: 47 yold female presents to the ED for hemmrhoids pain for several days with slight bleeding from hemmhroids. [place] [facility] Decision Making Medical Decision Making MDM Narrative: [age] old female presents for evaluation of 2 separate complaints. She complains of hemorrhoids that are painful with bloody bowel movements, she has a history of this. These are easily visible lung exam. Will treat with Anusol suppositories and she was encouraged to use MiraLax stool softener and Sitz baths. She also appears to have candidiasis of the perineum which will be treated with nystatin powder. Differential Diagnosis Differential Diagnoses: The differential diagnosis associated with the presentation includes Internal hemorrhoids External hemorrhoids Candidiasis Dermatitis Urticaria Discharge Plan Discharge Clinical Impression: Candidiasis of perineum, Hemorrhoids Patient Disposition: Home, Self-Care Instructions: Hemorrhoids (ED), Yeast Infection (ED) Additional Instructions: Use nystatin powder as directed for up to 2 weeks. Use Anusol suppositories twice daily for 5 days You may also benefit from [id number] MiraLax for stool softener to prevent discomfort with bowel movements Follow-up your primary doctor Prescriptions: New nystatin 100,000 unit/gram powder 1 appl topical TID 14 Days Qty: 60 0RF hydrocortisone [Anusol-HC] 2.5 % cream with perineal applicator 1 appl [place] BID 5 Days Qty: 30 0RF No Action cyclobenzaprine 10 mg tablet 10 mg PO TID atorvastatin 40 mg tablet 40 mg PO BEDTIME tramadol 50 mg tablet 50 mg PO Q6H PRN (Reason: Pain) pantoprazole 40 mg tablet,delayed release (DR/EC) 40 mg PO DAILY buspirone 10 mg tablet 10 mg PO TID albuterol sulfate [ProAir HFA] 90 mcg/actuation HFA aerosol inhaler 2 puff PO Q4-6H PRN (Reason: Wheezing) metformin 500 mg tablet extended release 24 hr 1,000 mg PO BID lisinopril 2.5 mg tablet 2.5 mg PO DAILY prazosin 2 mg capsule 2 mg PO BEDTIME Flovent HFA 110 mcg/actuation HFA aerosol inhaler 2 puff PO BID insulin lispro [Humalog KwikPen Insulin] 100 unit/mL insulin pen 5 unit subcut TIDWM duloxetine 60 mg capsule,delayed release(DR/EC) 60 mg PO DAILY pregabalin 225 mg capsule 225 mg PO BID Invokana 300 mg tablet 300 mg PO DAILY Tresiba FlexTouch U-200 200 unit/mL (3 mL) insulin pen 40 unit subcut BID bisacodyl [Dulcolax (bisacodyl)] 5 mg tablet,delayed release (DR/EC) 10 mg PO ONCE 1 Days Qty: 2 0RF Rx Instructions: Take 2 tablets by mouth at 12:00pm the day before your procedure. polyethylene glycol 3350 [Miralax] 17 gram/dose powder 238 g PO ONCE 1 Days Qty: 238 0RF Rx Instructions: Take as directed by mouth the day before your procedure. Interventions: ED Discharge Assessment Last Done: 04/22/23 21:52 Discharge Date/Time: 04/22/23 21:53
[2023-04-22 19:24] VITALS: BP 115/80; PULSE 102; RESP 16; TEMP 35.4; O2SAT 96
[2023-04-22 21:23] VITALS: BP 104/64; PULSE 84; RESP 16; TEMP 36.8; O2SAT 96
== END 2023-04-22 21:53 | disposition home or self-care (01) ==
PROVIDERS: Emergency Provider Emergency Medicine; PCP Registered Nurse
DX: B37.2 Candidiasis of skin and nail (principal); R21 Rash and other nonspecific skin eruption; K64.9 Unspecified hemorrhoids; F17.210 Nicotine dependence, cigarettes, uncomplicated; Z79.899 Other long term (current) drug therapy; Z79.4 Long term (current) use of insulin
CPT/HCPCS: 99283

== ENCOUNTER 2023-06-20 14:42 | Outpatient (REF) | payer MEDICAID, SELFPAY ==
[2023-06-20 16:02] LABS: MANUAL DIFF FLAG NO
[2023-06-20 16:05] LABS: Basophils Absolute Auto 0.1 X10*3/uL (0.0-0.2); Basophils Percent Auto 0.5 % (0-2); Eosinophils Absolute Auto 0.1 X10*3/uL (0.0-0.4); Eosinophils Percent Auto 1.2 % (0-4); Hematocrit 44.1 % (37.0-47.0); Hemoglobin 15.2 g/dl (12.0-16.0); Imm Gran Abs Auto 0.03 X10*3/uL (0.00-0.03); Imm Gran Pct Auto 0.3 % (0.0-0.4); Lymphocytes Absolute Auto 3.3 X10*3/uL (1.2-4.9); Lymphocytes Percent Auto 31.9 % (20-40); Mean Corpuscular HGB Conc 34.5 g/dl (31.0-35.0); Mean Corpuscular Hemoglobin 31.8 pg (27.0-33.0); Mean Corpuscular Volume 92.3 fL (80.0-98.0); Mean Platelet Volume 11.8 fL (9.4-12.3); Monocytes Absolute Auto 0.5 X10*3/uL (0.1-1.2); Monocytes Percent Auto 4.8 % (2-11); Neutrophils Absolute Auto 6.4 x10*3/uL (2.0-8.3); Neutrophils Percent Auto 61.3 % (45-73); Platelet Count 151 X10*3/uL (160-400); Red Blood Count 4.78 X10*6/uL (4.20-5.50); Red Cell Distribution Width 14.4 % (11.0-16.0); White Blood Count 10.4 X10*3/uL (4.8-10.8)
[2023-06-20 16:09] LABS: INTERNATIONAL NORM RATIO 1.1 (0.9-1.1)
[2023-06-20 17:44] LABS: Sodium 135 mmol/L (135-145)
[2023-06-20 17:45] LABS: Alanine Aminotransferase 28 U/L (0-31); Albumin Level 3.7 g/dL (3.5-5.0); Alkaline Phosphatase 162 U/L (39-117); Anion Gap 18 (12-20); Aspartate Amino Transferase 38 U/L (5-31); Bilirubin Total 1.6 mg/dL (0.0-1.0); Blood Urea Nitrogen 19 mg/dL (9-16); Calcium 9.9 mg/dL (8.4-10.2); Carbon Dioxide 23 mmol/L (22-29); Chloride 97 mmol/L (96-108); Estimated Glomerular Filt Rate 34; Glucose Random 334 mg/dL (60-115); Total Protein 8.8 g/dL (6.5-8.0)
[2023-06-20 18:20] LABS: Potassium 2.8 mmol/L (3.3-5.1)
== END 2023-06-20 14:43 | disposition home or self-care (01) ==
LOC: HO.HHCL 14:42
PROVIDERS: Visit Provider Registered Nurse
DX: K74.69 Other cirrhosis of liver (principal)
CPT/HCPCS: 36415; 80053; 85025; 85610

== ENCOUNTER 2023-06-28 12:17 | Outpatient (REF) | payer MEDICAID, SELFPAY ==
[2023-06-28 15:42] LABS: Anion Gap 16 (12-20); Blood Urea Nitrogen 12 mg/dL (9-16); Calcium 10.2 mg/dL (8.4-10.2); Carbon Dioxide 24 mmol/L (22-29); Chloride 95 mmol/L (96-108); Estimated Glomerular Filt Rate 40; Glucose Random 531 mg/dL (60-115); Magnesium 2.2 mg/dL (1.6-2.6); Potassium 3.5 mmol/L (3.3-5.1); Sodium 131 mmol/L (135-145)
== END 2023-06-28 12:18 | disposition home or self-care (01) ==
LOC: HO.HMGCLDS 12:17
PROVIDERS: PCP Registered Nurse; Visit Provider Registered Nurse
DX: E87.6 Hypokalemia (principal)
CPT/HCPCS: 36415; 80048; 83735

== ENCOUNTER 2023-09-18 12:14 | Outpatient (REF) | payer MEDICAID, SELFPAY ==
[2023-09-18 13:56] LABS: Anion Gap 13 (12-20); Blood Urea Nitrogen 8 mg/dL (9-16); Calcium 10.1 mg/dL (8.4-10.2); Carbon Dioxide 36 mmol/L (22-29); Chloride 86 mmol/L (96-108); Estimated Glomerular Filt Rate 32; Glucose Random 619 mg/dL (60-115); Potassium 2.2 mmol/L (3.3-5.1); Sodium 133 mmol/L (135-145)
[2023-09-18 14:08] LABS: Vitamin B12 710 pg/mL (200-900)
[2023-09-18 16:58] LABS: Microalbum/Creatinine Ratio Ur 172.6 ug/mg cr (<30)
== END 2023-09-18 12:15 | disposition home or self-care (01) ==
LOC: HO.HHCL 12:14
PROVIDERS: Visit Provider Registered Nurse
DX: E11.65 Type 2 diabetes mellitus with hyperglycemia (principal); Z79.4 Long term (current) use of insulin
CPT/HCPCS: 36415; 80048; 82043; 82570; 82607

== ENCOUNTER 2023-09-18 21:57 | Inpatient (IN) | payer MEDICAID, SELFPAY ==
--- NOTE | 2023-09-18 | ECG_ITS ---
Test Reason : ABNORMAL LABS Blood Pressure : / mmHG Vent. Rate : 088 BPM Atrial Rate : 088 BPM P-R Int : 156 ms QRS Dur : 078 ms QT Int : 394 ms P-R-T Axes : 023 -08 006 degrees QTc Int : 476 ms Normal sinus rhythm Minimal voltage criteria for LVH, may be normal variant ( R in aVL ) Borderline ECG When compared with ECG of 12-MAR-2021 15:56, Vent. rate has decreased BY 50 BPM Referred By: Generic ED Physician Electronically Signed By:MEDINA DELGADILLO MD
--- NOTE | ~2023-09-18 | XR_ITS ---
EXAMINATION: XR CHEST CLINICAL INFORMATION: Infectious workup. COMPARISON: 06/22/2020 TECHNIQUE: Frontal view of the chest was obtained. FINDINGS: No significant abnormality is noted involving the heart, lungs, mediastinum, bony thorax or soft tissues. XR/XR chest 1V IMPRESSION: No evidence for active cardiopulmonary disease.
--- NOTE | ~2023-09-18 | CT_ITS ---
EXAMINATION: CT ABDOMEN AND PELVIS WITHOUT CONTRAST CLINICAL INFORMATION: Abdominal pain. COMPARISON: 03/12/2021 TECHNIQUE: Multidetector volumetric imaging was performed from the superior aspect of the liver through the pubic symphysis. Sagittal and coronal reformatted images were obtained on the technologist's workstation. This CT examination was performed using dose optimization techniques as appropriate, variously including the following: *Automated exposure control *Adjustment of mA and/or kV according to patient size (this includes techniques or standardized protocols for targeted exams where dose is matched to indication/reason for exam; i.e. extremities or head) *Use of iterative reconstruction technique DLP: 1351 mGy-cm FINDINGS: LUNG BASES: The visualized lung bases are unremarkable. LIVER, GALLBLADDER, AND BILIARY TREE: The liver is significantly irregular in contour and heterogeneous in attenuation. No focal liver lesions are seen. There has been a prior cholecystectomy. PANCREAS: Unremarkable. SPLEEN: The spleen measures up to 21 cm. ADRENAL GLANDS: Unremarkable. KIDNEYS AND URETERS: The kidneys are normal in size, shape, and attenuation. No hydronephrosis, hydroureter, or calculi seen. No perinephric stranding. BLADDER: Unremarkable. GASTROINTESTINAL TRACT: The small and large bowel are unremarkable. The appendix is unremarkable. ABDOMINAL WALL: No significant hernia is appreciated. LYMPH NODES: Normal. VASCULAR: Unremarkable. PELVIC VISCERA: Unremarkable. OSSEOUS STRUCTURES: Unremarkable. CT/CT abdomen pelvis wo IV con IMPRESSION: 1. No acute abnormality in the abdomen or pelvis. 2. Cirrhotic liver with splenomegaly. Fleischner guidelines were followed.
[2023-09-18 22:16] VITALS: BP 85/60; PULSE 88; RESP 20; TEMP 36.9; O2SAT 95; BMI 45.4
[2023-09-18 22:33] VITALS: BP 86/51
--- NOTE | 2023-09-18 22:33 | PC.NURSE ---
Pt brought back to ED 22. States she was advised to come in per PCP for K+ of 2.2 and blood glucose >600. Pt also with complaints of abdominal pain. Pt hypotensive on arrival to ED. #20 PIV initiated to left forearm.
[2023-09-18 22:42] VITALS: BP 64/41
[2023-09-18] MEDS: 0.9 % Sodium Chloride 1,000 ML 999 ML IV (22:45)
--- NOTE | 2023-09-18 22:45 | PC.NURSE ---
BP 64/41. NaCl fluid bolus initiated.
[2023-09-18 22:46] LABS: MANUAL DIFF FLAG NO
[2023-09-18 22:47] VITALS: BP 74/43; PULSE 90; RESP 20
[2023-09-18 22:51] LABS: Basophils Percent Auto 0.4 % (0-2); Eosinophils Percent Auto 0.7 % (0-4); Hematocrit 37.6 % (37.0-47.0); Hemoglobin 13.6 g/dl (12.0-16.0); Imm Gran Abs Auto 0.01 X10*3/uL (0.00-0.03); Imm Gran Pct Auto 0.2 % (0.0-0.4); Lymphocytes Percent Auto 36.8 % (20-40); Mean Corpuscular HGB Conc 36.2 g/dl (31.0-35.0); Mean Corpuscular Hemoglobin 32.2 pg (27.0-33.0); Mean Corpuscular Volume 89.1 fL (80.0-98.0); Mean Platelet Volume 12.7 fL (9.4-12.3); Monocytes Absolute Auto 0.3 X10*3/uL (0.1-1.2); Monocytes Percent Auto 5.4 % (2-11); Neutrophils Absolute Auto 3.1 x10*3/uL (2.0-8.3); Neutrophils Percent Auto 56.5 % (45-73); Red Blood Count 4.22 X10*6/uL (4.20-5.50); Red Cell Distribution Width 14.3 % (11.0-16.0); White Blood Count 5.4 X10*3/uL (4.8-10.8)
[2023-09-18 22:52] LABS: Platelet Count 83 X10*3/uL (160-400)
--- NOTE | 2023-09-18 22:53 | ED.GENADULT ---
HPI - General Adult General Chief complaint: Recheck/Abnormal Lab/Rx Stated complaint: abnormal labs Time Seen by Provider: 09/18/23 22:43 Source: patient History of Present Illness HPI narrative: 47-year-old female with past medical history of asthma, HLD, HTN, GERD, DM, PTSD, chronic abdominal pain, bacteremia secondary to infected left ureter stone - presenting for abdominal pain, nausea, vomiting, diarrhea and abnormal labs - patient states that yesterday she felt okay however symptoms started this morning with nausea, vomiting, weakness, diarrhea and abdominal pain. She was evaluated by an outpatient provider today and was called and told to come to the ED due to hyperglycemia and hypokalemia - patient is currently complaining of abdominal pain, head pain and nausea - she denies chest pain, shortness of breath, urinary symptoms Onset (ago): hour(s) Related Data Home Medications ?Medication ?Instructions ?Recorded ?Confirmed albuterol sulfate 90 mcg/actuation 2 puff PO Q4-6H PRN Wheezing 03/12/21 03/23/21 aerosol inhaler (ProAir HFA) atorvastatin 40 mg tablet 40 mg PO BEDTIME 03/12/21 03/23/21 buspirone 10 mg tablet 10 mg PO TID anxiety 03/12/21 03/23/21 canagliflozin 300 mg tablet 300 mg PO DAILY 03/12/21 03/23/21 (Invokana) cyclobenzaprine 10 mg tablet 10 mg PO TID 03/12/21 03/23/21 duloxetine 60 mg capsule,delayed 60 mg PO DAILY 03/12/21 03/23/21 release fluticasone propionate 110 2 puff PO BID 03/12/21 03/23/21 mcg/actuation HFA aerosol inhaler (Flovent HFA) insulin degludec 200 unit/mL (3 40 unit subcut BID 03/12/21 03/23/21 mL) subcutaneous pen (Tresiba FlexTouch U-200 insulin) insulin lispro 100 unit/mL 5 unit subcut TIDWM 03/12/21 03/23/21 subcutaneous pen (Humalog KwikPen (U-100) Insulin) lisinopril 2.5 mg tablet 2.5 mg PO DAILY 03/12/21 03/23/21 metformin 500 mg tablet,extended 1,000 mg PO BID 03/12/21 03/23/21 release 24 hr pantoprazole 40 mg tablet,delayed 40 mg PO DAILY 03/12/21 03/23/21 release prazosin 2 mg capsule 2 mg PO BEDTIME 03/12/21 03/23/21 pregabalin 225 mg capsule 225 mg PO BID 03/12/21 03/23/21 tramadol 50 mg tablet 50 mg PO Q6H PRN Pain 03/12/21 03/23/21 Previous Rx's ?Medication ?Instructions ?Recorded bisacodyl 5 mg tablet,delayed 10 mg (2 x 5 mg) PO ONCE 03/20/21 release (Dulcolax (bisacodyl)) colonoscopy prep 1 day #2 tabs polyethylene glycol 3350 17 238 g PO ONCE 1 day #238 grams 03/20/21 gram/dose oral powder (Miralax) hydrocortisone 2.5 % topical cream 1 appl CA BID 5 days #30 grams 04/22/23 with perineal applicator (Anusol-HC) nystatin 100,000 unit/gram topical 1 appl topical TID 14 days #60 04/22/23 powder grams Allergies Allergy/AdvReac Type Severity Reaction Status Date / Time acetaminophen [From TYLENOL] Allergy Unknown LIVER Verified 09/18/23 22:19 SWELLING Review of Systems Review of Systems: Patient is complaining of abdominal pain, nausea, vomiting, diarrhea, weakness, head pain She denies chest pain, shortness of breath, urinary symptoms [facility] Past Medical History Attestation statement: The following information was validated with the patient. [facility] Narrative: Diabetes, chronic abdominal pain Source: old records reviewed Medical History Asthma delivery delivered Cholecystectomy planned Chronic abdominal pain Cirrhosis Diabetes Enlarged liver Hernia Migraine PTSD (post-traumatic stress disorder) Spleen enlarged Surgical History Status post anal fissurectomy Family History Family History Mother Diabetes Anxiety Depressed Arthritis Migraine Social History Social History Household Members: Children Household Members Other:: she has 6 children and 12 grandchildren- 2 [address] babies on the way Housing: Apartment Do you 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 have 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) Alcohol intake: former Comment: back Patient Tobacco Use Status: Current everyday Tobacco user Tobacco use type: Cigarette Cigarettes Per Day: 6 Years Smoked: 15 Substance Use Type: Marijuana Advance Directives: No Advance Directives Information Provided: No service: No Current occupational status: unemployed Physical Exam ED Vital Signs: Vital Signs - 24 hr 09/18/23 22:16 09/18/23 22:33 09/18/23 22:42 Temperature 98.4 F Pulse Rate 88 Respiratory Rate 20 Blood Pressure 85/60 L 86/51 L 64/41 L Pulse Oximetry 95 Oxygen Delivery Method Room Air 09/18/23 22:47 09/18/23 22:56 09/18/23 23:52 Temperature Pulse Rate 90 78 87 Respiratory Rate 20 20 20 Blood Pressure 74/43 L 110/64 111/79 Pulse Oximetry 98 Oxygen Delivery Method Room Air Room Air 09/19/23 01:55 09/19/23 02:54 Temperature 98.4 F Pulse Rate 82 83 Respiratory Rate 17 16 Blood Pressure 102/66 116/47 L Pulse Oximetry 97 Oxygen Delivery Method BMI result Body Mass Index 45.4 Abdomen diffusely tender to palpation some: Soft and mildly distended Lungs clear to auscultation bilaterally; normal S1-S2 regular rate rhythm No focal neurologic deficits Course Course Course Narrative: Labs, fluids and imaging studies ordered Medications Administered Discontinued Medications Generic Name Dose Route Start Last Admin Trade Name Freq PRN Reason Stop Dose Admin Sodium Chloride 1,000 mls @ 999 mls/hr 09/18/23 22:45 09/18/23 23:15 Ns IV 09/18/23 23:45 Infused .Q1H1M MARYJO Infusion Potassium Chloride 10 meq in 100 mls @ 100 mls/hr 09/18/23 22:59 09/19/23 00:16 Potassium Chloride/H20 IV 09/18/23 23:58 Infused ONCE ONE Infusion Lactated Ringer's 500 mls @ 999 mls/hr 09/18/23 23:15 09/19/23 00:51 Lr IV 09/18/23 23:45 Infused .Q31M MARYJO Infusion Potassium Chloride 10 meq in 100 mls @ 100 mls/hr 09/19/23 00:31 09/19/23 00:58 Potassium Chloride/H20 IV 09/19/23 01:30 100 mls/hr ONCE ONE Administration Potassium Chloride 10 meq in 100 mls @ 100 mls/hr 09/19/23 00:32 09/19/23 01:57 Potassium Chloride/H20 IV 09/19/23 01:31 100 mls/hr ONCE ONE Administration Lactated Ringer's 1,000 mls @ 999 mls/hr 09/19/23 01:00 09/19/23 00:58 Lr IV 09/19/23 02:00 999 mls/hr .Q1H1M MARYJO Administration Potassium Chloride 40 meq 09/18/23 23:01 09/18/23 23:10 Potassium Chloride Packet 20 Meq Packet PO 09/18/23 23:02 40 meq ONCE ONE Administration Medical Decision Making Medical Decision Making MDM Narrative: Concerns for the following; DKA, underlying infection, surgical abdomen, Fluids labs ordered Patient found to be hypokalemic and hyperglycemia; potassium ordered Patient does not have an anion gap, normal beta hydroxybutyrate and no ketones in urine, nor is she acidotic Lactate worsening despite fluids; antibiotics and abdominal imaging ordered ICU attending consulted Signed out to night attending Differential Diagnosis Differential Diagnoses: The differential diagnosis associated with the presentation includes DKA, underlying infection, hypokalemia Consult Healthcare Provider ICU attending consulted Lab Data Hypokalemic, elevated lactate 09/18/23 22:41 09/19/23 00:55 Labs: Lab Results 09/18/23 09/18/23 09/19/23 Range/Units 22:41 23:19 00:11 WBC 5.4 (4.8-10.8) X10*3/uL RBC 4.22 (4.20-5.50) X10*6/uL Hgb 13.6 (12.0-16.0) g/dl Hct 37.6 (37.0-47.0) % MCV 89.1 (80.0-98.0) fL MCH 32.2 (27.0-33.0) pg MCHC 36.2 H (31.0-35.0) g/dl RDW 14.3 (11.0-16.0) % Plt Count 83 L D (160-400) X10*3/uL MPV 12.7 H (9.4-12.3) fL Immature Gran % (Auto) 0.2 (0.0-0.4) % Neut % (Auto) 56.5 (45-73) % Lymph % (Auto) 36.8 (20-40) % Rabun % (Auto) 5.4 (2-11) % Eos % (Auto) 0.7 (0-4) % Baso % (Auto) 0.4 (0-2) % Lymph # (Auto) 2.0 (1.2-4.9) X10*3/uL Rabun # (Auto) 0.3 (0.1-1.2) X10*3/uL Eos # (Auto) 0.0 (0.0-0.4) X10*3/uL Baso # (Auto) 0.0 (0.0-0.2) X10*3/uL Abs Immat Gran (auto) 0.01 (0.00-0.03) X10*3/uL Absolute Neuts (auto) 3.1 (2.0-8.3) x10*3/uL Absolute Nucleated RBC 0.000 (0.0-0.012) X10*3/uL Nucleated RBC % (auto) 0.0 (0.0-0.2) /100WBC PT 13.8 H (11.1-13.3) SEC INR 1.1 (0.9-1.1) VBG pH (7.32-7.43) VBG pCO2 mmHg VBG pO2 mmHg VBG HCO3 (22-26) mmol/L VBG O2 Saturation % VBG Base Excess mmol/L Sodium 133 L (135-145) mmol/L Potassium 2.2 L* (3.3-5.1) mmol/L Chloride 85 L (96-108) mmol/L Carbon Dioxide 34 H (22-29) mmol/L Anion Gap 16 (12-20) BUN 8 L (9-16) mg/dL Creatinine 1.42 H (0.5-1.4) mg/dL Estim Creat Clear Calc 68.5 Estimated GFR 39 POC Glucose (60-115) mg/dL Random Glucose 534 H* (60-115) mg/dL Lactic Acid 5.1 H* (0.5-2.0) mmol/L Lactic Acid F/U @ 2Hr (0.5-2.0) mmol/L Calcium 9.2 D (8.4-10.2) mg/dL Phosphorus 1.5 L (2.7-4.5) mg/dL Magnesium 1.9 (1.6-2.6) mg/dL Total Bilirubin 1.2 H (0.0-1.0) mg/dL AST 44 H (5-31) U/L ALT 34 H (0-31) U/L Alkaline Phosphatase 222 H (39-117) U/L Troponin I High Sens 5.4 (<3.5-17.0) ng/L Total Protein 7.5 (6.5-8.0) g/dL Albumin 3.2 L (3.5-5.0) g/dL Lipase 83 H (8-78) U/L Beta-Hydroxybutyrate 0.15 (0.02-0.27) mmol/L Urine Color Yellow Urine Appearance Clear Urine pH 7.0 (5.0-9.0) Ur Specific Barnhart 1.010 (1.005-1.025) Urine Protein 100 (2+) H (Neg-Trace) mg/dL Urine Glucose (UA) >=1000 H (Negative) mg/dL Urine Ketones Negative (Negative) mg/dL Urine Blood Moderate (2+) H (Negative) Urine Nitrite Negative (Negative) Ur Leukocyte Esterase Negative (Negative) Urine RBC 0-2 (0-2) /HPF Urine WBC 0-5 (0-5) /HPF Ur Squamous Epith Cells 3-5 (0-2) /HPF Urine Bacteria None Seen (None Seen) Hyaline Casts 0-2 (0-2) /LPF Blood Type A Positive Antibody Screen NEGATIVE 09/19/23 09/19/23 09/19/23 Range/Units 00:55 01:04 01:22 WBC (4.8-10.8) X10*3/uL RBC (4.20-5.50) X10*6/uL Hgb (12.0-16.0) g/dl Hct (37.0-47.0) % MCV (80.0-98.0) fL MCH (27.0-33.0) pg MCHC (31.0-35.0) g/dl RDW (11.0-16.0) % Plt Count (160-400) X10*3/uL MPV (9.4-12.3) fL Immature Gran % (Auto) (0.0-0.4) % Neut % (Auto) (45-73) % Lymph % (Auto) (20-40) % Rabun % (Auto) (2-11) % Eos % (Auto) (0-4) % Baso % (Auto) (0-2) % Lymph # (Auto) (1.2-4.9) X10*3/uL Rabun # (Auto) (0.1-1.2) X10*3/uL Eos # (Auto) (0.0-0.4) X10*3/uL Baso # (Auto) (0.0-0.2) X10*3/uL Abs Immat Gran (auto) (0.00-0.03) X10*3/uL Absolute Neuts (auto) (2.0-8.3) x10*3/uL Absolute Nucleated RBC (0.0-0.012) X10*3/uL Nucleated RBC % (auto) (0.0-0.2) /100WBC PT (11.1-13.3) SEC INR (0.9-1.1) VBG pH 7.56 H (7.32-7.43) VBG pCO2 43 mmHg VBG pO2 67 mmHg VBG HCO3 39 H (22-26) mmol/L VBG O2 Saturation 96.0 % VBG Base Excess 15.8 mmol/L Sodium (135-145) mmol/L Potassium 2.3 L* (3.3-5.1) mmol/L Chloride (96-108) mmol/L Carbon Dioxide (22-29) mmol/L Anion Gap (12-20) BUN (9-16) mg/dL Creatinine (0.5-1.4) mg/dL Estim Creat Clear Calc Estimated GFR POC Glucose 448 H* (60-115) mg/dL Random Glucose (60-115) mg/dL Lactic Acid (0.5-2.0) mmol/L Lactic Acid F/U @ 2Hr 6.0 H* (0.5-2.0) mmol/L Calcium (8.4-10.2) mg/dL Phosphorus (2.7-4.5) mg/dL Magnesium (1.6-2.6) mg/dL Total Bilirubin (0.0-1.0) mg/dL AST (5-31) U/L ALT (0-31) U/L Alkaline Phosphatase (39-117) U/L Troponin I High Sens (<3.5-17.0) ng/L Total Protein (6.5-8.0) g/dL Albumin (3.5-5.0) g/dL Lipase (8-78) U/L Beta-Hydroxybutyrate (0.02-0.27) mmol/L Urine Color Urine Appearance Urine pH (5.0-9.0) Ur Specific Barnhart (1.005-1.025) Urine Protein (Neg-Trace) mg/dL Urine Glucose (UA) (Negative) mg/dL Urine Ketones (Negative) mg/dL Urine Blood (Negative) Urine Nitrite (Negative) Ur Leukocyte Esterase (Negative) Urine RBC (0-2) /HPF Urine WBC (0-5) /HPF Ur Squamous Epith Cells (0-2) /HPF Urine Bacteria (None Seen) Hyaline Casts (0-2) /LPF Blood Type Antibody Screen Independent Interpretation I performed an independent interpretation of an: EKG Discharge Plan Discharge Clinical Impression: Acute hypokalemia, Elevated lactic acid level Prescriptions: No Action cyclobenzaprine 10 mg tablet 10 mg PO TID atorvastatin 40 mg tablet 40 mg PO BEDTIME tramadol 50 mg tablet 50 mg PO Q6H PRN (Reason: Pain) pantoprazole 40 mg tablet,delayed release (DR/EC) 40 mg PO DAILY buspirone 10 mg tablet 10 mg PO TID albuterol sulfate [ProAir HFA] 90 mcg/actuation HFA aerosol inhaler 2 puff PO Q4-6H PRN (Reason: Wheezing) metformin 500 mg tablet extended release 24 hr 1,000 mg PO BID lisinopril 2.5 mg tablet 2.5 mg PO DAILY prazosin 2 mg capsule 2 mg PO BEDTIME Flovent HFA 110 mcg/actuation HFA aerosol inhaler 2 puff PO BID insulin lispro [Humalog KwikPen Insulin] 100 unit/mL insulin pen 5 unit subcut TIDWM duloxetine 60 mg capsule,delayed release(DR/EC) 60 mg PO DAILY pregabalin 225 mg capsule 225 mg PO BID Invokana 300 mg tablet 300 mg PO DAILY Tresiba FlexTouch U-200 200 unit/mL (3 mL) insulin pen 40 unit subcut BID nystatin 100,000 unit/gram powder 1 appl topical TID 14 Days Qty: 60 0RF hydrocortisone [Anusol-HC] 2.5 % cream with perineal applicator 1 appl CA BID 5 Days Qty: 30 0RF bisacodyl [Dulcolax (bisacodyl)] 5 mg tablet,delayed release (DR/EC) 10 mg PO ONCE 1 Days Qty: 2 0RF Rx Instructions: Take 2 tablets by mouth at 12:00pm the day before your procedure. polyethylene glycol 3350 [Miralax] 17 gram/dose powder 238 g PO ONCE 1 Days Qty: 238 0RF Rx Instructions: Take as directed by mouth the day before your procedure. Print Language: Georgian
[2023-09-18 22:56] VITALS: BP 110/64; PULSE 78; RESP 20
--- NOTE | 2023-09-18 22:58 | PC.NURSE ---
BP improved after fluid bolus initiation.
[2023-09-18 23:01] LABS: INTERNATIONAL NORM RATIO 1.1 (0.9-1.1); Prothrombin Time 13.8 SEC (11.1-13.3)
--- NOTE | 2023-09-18 23:01 | PC.NURSE ---
Pt with complaints of right sided chest pain. Provider made aware.
[2023-09-18 23:03] LABS: Lactic Acid 5.1 mmol/L (0.5-2.0)
[2023-09-18 23:08] LABS: Alanine Aminotransferase 34 U/L (0-31); Albumin Level 3.2 g/dL (3.5-5.0); Alkaline Phosphatase 222 U/L (39-117); Anion Gap 16 (12-20); Aspartate Amino Transferase 44 U/L (5-31); Bilirubin Total 1.2 mg/dL (0.0-1.0); Blood Urea Nitrogen 8 mg/dL (9-16); Calcium 9.2 mg/dL (8.4-10.2); Carbon Dioxide 34 mmol/L (22-29); Chloride 85 mmol/L (96-108); Creatinine Clr Calc Pharmacy 68.5; Estimated Glomerular Filt Rate 39; Glucose Random 534 mg/dL (60-115); Lipase 83 U/L (8-78); Potassium 2.2 mmol/L (3.3-5.1); Sodium 133 mmol/L (135-145); Total Protein 7.5 g/dL (6.5-8.0); Troponin-I High Sensitivity 5.4 ng/L (<3.5-17.0)
[2023-09-18] MEDS: Potassium Chloride Packet 20 MEQ PACKET 40 MEQ PO (23:10)
[2023-09-18] MEDS: Potassium Chloride/H20 10 MEQ/100 ML PIGGYBACK 100 MEQ IV (23:16)
[2023-09-18] MEDS: Lactated Ringers 500 ML 999 ML IV (23:17)
[2023-09-18 23:22] LABS: Beta-Hydroxybutyrate 0.15 mmol/L (0.02-0.27); Magnesium 1.9 mg/dL (1.6-2.6); Phosphorus 1.5 mg/dL (2.7-4.5)
[2023-09-18 23:52] VITALS: BP 111/79; PULSE 87; RESP 20; O2SAT 98
[2023-09-19] VITALS (15 sets, daily range): BP systolic 77–125; BP diastolic 41–80; PULSE 71–91; RESP 14–20; TEMP 36–37.1; O2SAT 92–97
--- NOTE | 2023-09-19 00:08 | PC.NURSE ---
Pt assisted to bedside commode. Reports mild amount of dizziness at this time.
[2023-09-19 00:19] LABS: Appearance Urine Clear; Color Urine Yellow; Glucose Urine UA >=1000 mg/dL (Negative); Leukocyte Esterase Urine Negative (Negative); Nitrite Urine Negative (Negative); UMIC TRIGGER UACC YES; Urine Blood Moderate (2+) (Negative); Urine Ketones Negative (Negative); Urine Protein 100 (2+) mg/dL (Neg-Trace)
[2023-09-19 00:41] LABS: Bacteria Urine None Seen (None Seen); Hyaline Casts Urine 0-2 /LPF (0-2); RBC Urine 0-2 /HPF (0-2); WBC Urine 0-5 /HPF (0-5)
[2023-09-19 00:44] LABS: Reflex Lactate? Lactic Acid Added
[2023-09-19] MEDS: Lactated Ringers 1,000 ML 999 ML IV (00:58)
[2023-09-19] MEDS: Potassium Chloride/H20 10 MEQ/100 ML PIGGYBACK 100 MEQ IV ×4 (00:58→09:15)
[2023-09-19 01:22] LABS: Glucose, Whole Blood 448 mg/dL (60-115)
[2023-09-19 01:23] LABS: Potassium 2.3 mmol/L (3.3-5.1)
[2023-09-19 01:29] LABS: Venous Blood Gas Refer to POC result
[2023-09-19 01:38] LABS: VBG Base Excess 15.8 mmol/L; VBG HCO3 39 mmol/L (22-26); VBG pCO2 43 mmHg; VBG pH 7.56 (7.32-7.43); VBG pO2 67 mmHg
[2023-09-19] MEDS: vancomycin/NS 2,000 MG/500 ML PLAST..BAG 250 MG IV (02:58)
[2023-09-19 03:04] LABS: Reflex Lactate? 2 Y
[2023-09-19 04:58] LABS: Anion Gap 14 (12-20); Blood Urea Nitrogen 7 mg/dL (9-16); Carbon Dioxide 31 mmol/L (22-29); Chloride 93 mmol/L (96-108); Estimated Glomerular Filt Rate 45; Glucose Random 317 mg/dL (60-115); Potassium 2.2 mmol/L (3.3-5.1); Sodium 136 mmol/L (135-145)
[2023-09-19] MEDS: 0.9 % Sodium Chloride 1,000 ML 999 ML IVCONT (05:45)
[2023-09-19] MEDS: Potassium Chloride Packet 20 MEQ PACKET 60 MEQ PO (05:45)
--- NOTE | 2023-09-19 08:41 | PC.NURSE ---
Pt. refused oral Potassium because of the taste. Melita Rojas DO notified and ordered IV Potassium.
--- NOTE | 2023-09-19 09:14 | PC.NURSE ---
BP low to 89/63 - MD notified
[2023-09-19] MEDS: 0.9 % Sodium Chloride 1,000 ML 999 ML IV (10:12)
--- NOTE | 2023-09-19 10:14 | PC.NURSE ---
Medicated per MAR.
[2023-09-19 12:21] LABS: Anion Gap 11 (12-20); Blood Urea Nitrogen 6 mg/dL (9-16); Calcium 8.6 mg/dL (8.4-10.2); Carbon Dioxide 30 mmol/L (22-29); Chloride 103 mmol/L (96-108); Creatinine Clr Calc Pharmacy 99.2; Estimated Glomerular Filt Rate > 60; Glucose Random 255 mg/dL (60-115); Potassium 2.5 mmol/L (3.3-5.1); Sodium 141 mmol/L (135-145)
--- NOTE | 2023-09-19 12:21 | PM.IMHP ---
History of Present Illness Date of Service: 09/19/23 Attending physician on admission: Heidy Dominguez Chief Complaint: vomiting, diarrhea, anorexia 47-year-old female with history of moderate persistent, migraines, hepatic cirrhosis, insulin-dependent type 2 diabetes, hyperlipidemia, hypertension, GERD, history of bacteremia secondary to infected left ureteral stone, and mood disorder presented to the ED late last night for evaluation of abdominal pain, nausea, vomiting, diarrhea and abnormal labs reported by PCP office. She states for the last 2 days she has had about 2 episodes of vomiting and diarrhea per day with associated abdominal pain. She is also reporting anorexia with about 10 lb of unintentional weight loss ongoing for 2 days. She is using Trulicity which was started about 4 months ago. She states that she has really not been eating much at all, maybe once daily and drinking limited fluids. Denies any recent increase in dose for the Trulicity. She does also smoke marijuana regularly throughout the day and smokes 4-5 cigarettes on a daily basis. No alcohol use or illicit drug use. She was told by her primary care provider that her potassium levels were low and glucose levels were high. On exam, reports abdominal pain and nausea has resolved. Has not had diarrhea or vomiting in the last several hours. Since arrival, has been initially hypotensive to 64/41 but 104/66 on admission following IV fluids. Vital signs are otherwise stable. Hematology studies are unremarkable except for thrombocytopenia of 83, which is chronic likely related to cirrhosis. Initially with elevated creatinine of 1.70, baseline around 1.1. Presented with potassium level of 2.2, only improved to 2.5 following 50 mEq IV potassium and 100 mEq of oral KCl. Initial glucose 448 improved to 255 with IV fluids. Initial lactic acid 5.1, repeat 6.0, repeat 4.0. Urinalysis unremarkable except for significant glucose but negative ketones. VBG with pH 7.56, pCO2 43, bicarb 39. CXR unremarkable. CT abdomen/pelvis negative for any acute intra-abdominal abnormality which shows cirrhotic liver with splenomegaly. In addition to potassium noted above, has also received 5 L NS, 2 L LR, and IV vancomycin. She was evaluated by ICU did not feel ICU admission was warranted. Review of Systems Review of Systems: General: No fevers, malaise, unintentional weight loss HEENT: No blurred vision, diplopia. No sore throat, nasal congestion, rhinorrhea, sinus pain, ear pain Cardiovascular: No chest pain, palpitations, or leg edema Respiratory: No shortness of breath, wheezing, cough GI: +abd pain, n/v/d. No constipation, melena, hematochezia : No dysuria, hematuria, increased urinary frequency, decreased urinary output MSK: No myalgia, back pain Neuro: No headaches, weakness, paresthesias Skin: No rashes or lesions Yes all other systems are reviewed and are negative [facility] Medical History Chronic abdominal pain PTSD (post-traumatic stress disorder) Cirrhosis Cholecystectomy planned delivery delivered Migraine Asthma Diabetes Spleen enlarged Enlarged liver Hernia Family History Mother Diabetes Anxiety Depressed Arthritis Migraine Surgical History Status post anal fissurectomy Social History Household Members: Children Household Members Other:: she has 6 children and 12 grandchildren- [address] on the [address] Housing: Apartment Do you presently have 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) Alcohol intake: former Comment: back Patient Tobacco Use Status: Current everyday Tobacco user Tobacco use type: Cigarette Cigarettes Per Day: 6 Years Smoked: 15 Substance Use Type: Marijuana Advance Directives: No Advance Directives Information Provided: No service: No Current occupational status: unemployed Meds Allergies Allergy/AdvReac Type Severity Reaction Status Date / Time acetaminophen [From TYLENOL] Allergy Unknown LIVER Verified 09/18/23 22:19 SWELLING Active Medications: Current Medications Calcium Carbonate (Calcium Carbonate 750 Mg Tab.Chew) 750 mg PO Q4H PRN PRN Reason: Heartburn Enoxaparin Sodium (Enoxaparin Sodium 40 Mg/0.4 Ml Syringe) 40 mg SUBCUT Q24H MARYJO Lactated Ringer's (Lr) 1,000 mls @ 100 mls/hr IVCONT .Q10H MARYJO Magnesium Hydroxide (Milk Of Magnesia 30 Ml Oral.Susp) 30 ml PO DAILY PRN PRN Reason: Constipation Melatonin (Melatonin 3 Mg Tablet) 6 mg PO BEDTIME PRN PRN Reason: Insomnia Sodium Chloride (0.9 % Sodium Chloride Flush 3 Ml Syringe) 3 ml IVFLUSH QSHIFT [facility] Home Medications ?Medication ?Instructions ?Recorded ?Confirmed ?Last Taken ?Type albuterol sulfate 90 mcg/actuation 2 puff PO Q4-6H PRN Wheezing 03/12/21 03/23/21 Unknown History aerosol inhaler (ProAir HFA) atorvastatin 40 mg tablet 40 mg PO BEDTIME 03/12/21 03/23/21 Unknown History buspirone 10 mg tablet 10 mg PO TID anxiety 03/12/21 03/23/21 Unknown History canagliflozin 300 mg tablet 300 mg PO DAILY 03/12/21 03/23/21 Unknown History (Invokana) cyclobenzaprine 10 mg tablet 10 mg PO TID 03/12/21 03/23/21 Unknown History duloxetine 60 mg capsule,delayed 60 mg PO DAILY 03/12/21 03/23/21 Unknown History release fluticasone propionate 110 2 puff PO BID 03/12/21 03/23/21 Unknown History mcg/actuation HFA aerosol inhaler (Flovent HFA) insulin degludec 200 unit/mL (3 40 unit subcut BID 03/12/21 03/23/21 Unknown History mL) subcutaneous pen (Tresiba FlexTouch U-200 insulin) insulin lispro 100 unit/mL 5 unit subcut TIDWM 03/12/21 03/23/21 Unknown History subcutaneous pen (Humalog KwikPen (U-100) Insulin) lisinopril 2.5 mg tablet 2.5 mg PO DAILY 03/12/21 03/23/21 Unknown History metformin 500 mg tablet,extended 1,000 mg PO BID 03/12/21 03/23/21 Unknown History release 24 hr pantoprazole 40 mg tablet,delayed 40 mg PO DAILY 03/12/21 03/23/21 Unknown History release prazosin 2 mg capsule 2 mg PO BEDTIME 03/12/21 03/23/21 Unknown History pregabalin 225 mg capsule 225 mg PO BID 03/12/21 03/23/21 Unknown History tramadol 50 mg tablet 50 mg PO Q6H PRN Pain 03/12/21 03/23/21 Unknown History budesonide-formoterol HFA 80 2 puff inhalation dyspnea 09/19/23 Unknown History mcg-4.5 mcg/actuation aerosol inhaler (Symbicort) dulaglutide 3 mg/0.5 mL mg subcut QWEEK 09/19/23 Unknown History subcutaneous pen injector (Trulicity) dulaglutide 3 mg/0.5 mL mg subcut QWEEK 09/19/23 Unknown History subcutaneous pen injector (Trulicity) ferrous sulfate 325 mg (65 mg 325 mg PO Q OTHER DAY 09/19/23 09/19/23 Unknown History iron) tablet (FeroSul) furosemide 40 mg tablet 40 mg PO QAM 09/19/23 Unknown History propranolol 10 mg tablet 10 mg PO DAILY 09/19/23 Unknown History rosuvastatin 40 mg tablet 40 mg PO BEDTIME 09/19/23 Unknown History Physical Exam Vital Signs and Narrative: Vital Signs: Last Vital Signs Temp 98.3 F 09/19/23 09:08 Pulse 76 09/19/23 10:55 Resp 16 09/19/23 10:55 BP 104/66 09/19/23 10:55 Pulse Ox 96 09/19/23 10:55 O2 Del Method Room Air 09/19/23 10:55 BMI result Body Mass Index 45.4 Constitutional - Awake and Alert, No apparent distress Eyes - PERRLA, EOMI Cardiovascular - S1S2, RRR, No edema Respiratory - Normal lung expansion, Normal respiratory effort, No respiratory distress, CTA bilaterally Gastrointestinal - NT / ND; +BS; No rebound or guarding Extremities - no calf tenderness bilaterally, no swelling Skin - Warm/Dry Neurological - Alert & oriented x3 Psychological - Appropriate affect Results Labs 09/18/23 22:41 09/19/23 04:41 Labs: Laboratory Results - last 24 hr 09/18/23 09/18/23 09/19/23 22:41 23:19 00:11 MCV 89.1 MCH 32.2 MCHC 36.2 H RDW 14.3 Plt Count 83 L D MPV 12.7 H Immature Gran % (Auto) 0.2 Neut % (Auto) 56.5 Lymph % (Auto) 36.8 Lipscomb % (Auto) 5.4 Eos % (Auto) 0.7 Baso % (Auto) 0.4 Lymph # (Auto) 2.0 [place]comb # (Auto) 0.3 Eos # (Auto) 0.0 Baso # (Auto) 0.0 Abs Immat Gran (auto) 0.01 Absolute Neuts (auto) 3.1 Absolute Nucleated RBC 0.000 Nucleated RBC % (auto) 0.0 PT 13.8 H INR 1.1 VBG pH VBG pCO2 VBG pO2 VBG HCO3 VBG O2 Saturation VBG Base Excess Anion Gap 16 Estim Creat Clear Calc 68.5 Estimated GFR 39 POC Glucose Random Glucose 534 H* Lactic Acid 5.1 H* Lactic Acid F/U @ 2Hr Lactic Acid F/U @ 4Hr Calcium 9.2 D Phosphorus 1.5 L Magnesium 1.9 Total Bilirubin 1.2 H AST 44 H ALT 34 H Alkaline Phosphatase 222 H Troponin I High Sens 5.4 Total Protein 7.5 Albumin 3.2 L Lipase 83 H Beta-Hydroxybutyrate 0.15 Urine Color Yellow Urine Appearance Clear Urine pH 7.0 Ur Specific [place] 1.010 Urine Protein 100 (2+) H Urine Glucose (UA) >=1000 H Urine Ketones Negative Urine Blood Moderate (2+) H Urine Nitrite Negative Ur Leukocyte Esterase Negative Urine RBC 0-2 Urine WBC 0-5 Ur Squamous Epith Cells 3-5 Urine Bacteria None Seen Hyaline Casts 0-2 Blood Type A Positive Antibody Screen NEGATIVE 09/19/23 09/19/23 09/19/23 00:55 01:04 01:22 MCV MCH MCHC RDW Plt Count MPV Immature Gran % (Auto) Neut % (Auto) Lymph % (Auto) [place]comb % (Auto) Eos % (Auto) Baso % (Auto) Lymph # (Auto) [place]comb # (Auto) Eos # (Auto) Baso # (Auto) Abs Immat Gran (auto) Absolute Neuts (auto) Absolute Nucleated RBC Nucleated RBC % (auto) PT INR VBG pH 7.56 H VBG pCO2 43 VBG pO2 67 VBG HCO3 39 H VBG O2 Saturation 96.0 VBG Base Excess 15.8 Anion Gap Estim Creat Clear Calc Estimated GFR POC Glucose 448 H* Random Glucose Lactic Acid Lactic Acid F/U @ 2Hr 6.0 H* Lactic Acid F/U @ 4Hr Calcium Phosphorus Magnesium Total Bilirubin AST ALT Alkaline Phosphatase Troponin I High Sens Total Protein Albumin Lipase Beta-Hydroxybutyrate Urine Color Urine Appearance Urine pH Ur Specific [place] Urine Protein Urine Glucose (UA) Urine Ketones Urine Blood Urine Nitrite Ur Leukocyte Esterase Urine RBC Urine WBC Ur Squamous Epith Cells Urine Bacteria Hyaline Casts Blood Type Antibody Screen 09/19/23 04:41 MCV MCH MCHC RDW Plt Count MPV Immature Gran % (Auto) Neut % (Auto) Lymph % (Auto) [place] % (Auto) Eos % (Auto) Baso % (Auto) Lymph # (Auto) [place] # (Auto) Eos # (Auto) Baso # (Auto) Abs Immat Gran (auto) Absolute Neuts (auto) Absolute Nucleated RBC Nucleated RBC % (auto) PT INR VBG pH VBG pCO2 VBG pO2 VBG HCO3 VBG O2 Saturation VBG Base Excess Anion Gap 14 Estim Creat Clear Calc 76.0 Estimated GFR 45 POC Glucose Random Glucose 317 H Lactic Acid Lactic Acid F/U @ 2Hr Lactic Acid F/U @ 4Hr 4.0 H* Calcium 9.0 Phosphorus Magnesium Total Bilirubin AST ALT Alkaline Phosphatase Troponin I High Sens Total Protein Albumin Lipase Beta-Hydroxybutyrate Urine Color Urine Appearance Urine pH Ur Specific [place] Urine Protein Urine Glucose (UA) Urine Ketones Urine Blood Urine Nitrite Ur Leukocyte Esterase Urine RBC Urine WBC Ur Squamous Epith Cells Urine Bacteria Hyaline Casts Blood Type Antibody Screen Imaging Radiologist's Impressions: Impressions Abdomen/Pelvis CT 09/19/23 02:30 IMPRESSION: 1. No acute abnormality in the abdomen or pelvis. 2. Cirrhotic liver with splenomegaly. Fleischner guidelines were followed. Chest X-Ray 09/19/23 02:31 IMPRESSION: No evidence for active cardiopulmonary disease. Assessment and Plan (1) Acute hypokalemia: Status: Acute Plan 47-year-old female with history of moderate persistent asthma, migraines, hepatic cirrhosis, insulin-dependent type 2 diabetes, hyperlipidemia, hypertension, GERD, history of bacteremia secondary to infected left ureteral stone, and mood disorder admitted for severe refractory hypokalemia #Severe refractory hypokalemia -w/ associated anorexia and 10 lb unintentional weight loss suspected related to Trulicity -given 50 mEq IV potassium chloride and 100 mEq oral KCl/ K 2.2 --> 2.5 -Initaite potassium drip 40meq in 0.9%NS and give 60meq KCl ER -Urine lytes, uric acid level ordered -Gatroenterology consult -Nephrology consult -hold lasix -Serial lytes q6h -monitor on tele #CARON- resolved on admission -likely due to hypovolemia/hypoperfusion from poor po intake and gi losses #Acute abd pain -r/t hypokalemia #Nausea/Vomiting/Diarrhea -has had 2 episodes per day x 2 days -check gi panel and cdiff pcr #Chronic lactic acidosis -due to metformin use and hypovolemia. Not severe sepsis -hold metformin, Trulicity, Invokana #Hypotension -due to hypoperfusion/hypovolemia, resolved on admission -continue IVF -Give iv albumin x4 # insulin-dependent type 2 diabetes with hyperglycemia -use 1/2 home dose basal insulin -Humalog on sliding scale, POC glucose, diabetic diet -monitor sugars closely -no ketones, beta hydroxybutyrate normal, no acidosis # hypophosphatemia -r/t above -neprhology consult # hypertension -hold diuretics in setting of hypotension # hepatic cirrhosis -compensated, hold diuretics in setting of hypotension # diabetic polyneuropathy -continue Lyrica # mood disorder -continue home medications # chronic thrombocytopenia -due to cirrhosis DVT prophylaxis-scps due to thrombocytopenia Full code Patient requires inpatient stay at least 2 midnights for management of refractory severe hypokalemia requiring IV potassium, close cardiac monitoring, and expert consultation Quality Stroke Does the patient have a stroke diagnosis?: No VTE Prior VTE?: No VTE Risk Level:: Medical - moderate - high VTE Device Contraindication: Treatment Not Indicated VTE Drug Contraindication: N/A - Med Ordered
[2023-09-19] MEDS: Potassium Chloride ER 20 MEQ TAB.ER.PRT 60 MEQ PO (12:59)
[2023-09-19] MEDS: Albumin Human 25 % 100 ML IV ×2 (12:59→21:55)
[2023-09-19 13:01] LABS: Uric Acid 2.6 mg/dL (2.4-5.7)
--- NOTE | 2023-09-19 13:12 | PM.GICN ---
History of Present Illness Data of Consult Service Date: 09/19/23 Primary Care Provider: JESS Sharpe HPI Reason for consult: anorexia, unintentional wt loss, severe electrolyte abn?truclity related 47-year-old female with history of obesity, moderate persistent migraines, cirrhosis, insulin-dependent type 2 diabetes, hyperlipidemia, hypertension, GERD, history of bacteremia secondary to infected left ureteral stone, and mood disorder who I am seeing for abdominal pain patient had 1 d of sudden onset nausea and non bloody emesis with diarrhea and upper abdominal pain. She also has chest tightness for last 1 day, without radiation into the neck or arms. she denies sob, no sick contacts, no ingestion of poorly cooked foods. Denies drug use but does smoke THC daily. She has been on trulicity and feels low appetite due to this. she denies dysuria, or other urine sx. Labs revealed low K and raised lactate. Imaging without acute findings -cirrhosis noted and splenomegaly. Now she feels back to normal, and no further nausea, no abdominal pain. Review of Systems Review of Systems: Constitutional : No Weight loss, No Fever, No Chills ENT/Mouth : No sore throat, No Rhinorrhea Eyes: No Swelling, No Redness Cardiovascular : + Chest Pain, No SOB, No Edema Respiratory : No Cough, No Sputum, No Wheezing Gastrointestinal : see HPI Genitourinary : NO Dysuria, No Urinary Frequency, No Hematuria, No Urgency Musculoskeletal : + joint pain, No Myalgias, No Joint Swelling Skin : No Skin Lesions, No rash Neuro : No Weakness, No Numbness, No Dizziness, No Headache Psych : No Anxiety/Panic, No Depression Heme/Lymph: No Bruising, No Lymphadenopathy Endocrine : No Polyuria, No Polydipsia All other systems reviewed and are negative. [facility] Past Medical History Medical History Chronic abdominal pain PTSD (post-traumatic stress disorder) Cirrhosis Cholecystectomy planned delivery delivered Migraine Asthma Diabetes Spleen enlarged Enlarged liver Hernia Family History Family History Mother Diabetes Anxiety Depressed Arthritis Migraine Surgical History Surgical History Status post anal fissurectomy Social History Social History Household Members: Spouse and Children Household Members Other:: she has 6 children and 12 grandchildren- [address] on the way Housing: House Do you presently have visiting nurse or other home services: No Alcohol intake: former Comment: back Patient Tobacco Use Status: Current everyday Tobacco user Tobacco use type: Cigarette Cigarette Packs Per Day: 0.5 Cigarettes Per Day: 10.0 Years Smoked: 30 e-Cigarette/Vaping Use: Never Used Substance Use Type: Marijuana service: No Current occupational status: unemployed Meds Allergies Allergy/AdvReac Type Severity Reaction Status Date / Time acetaminophen [From TYLENOL] Allergy Unknown LIVER Verified 09/18/23 22:19 SWELLING Active Medications: Current Medications Calcium Carbonate (Calcium Carbonate 750 Mg Tab.Chew) 750 mg PO Q4H PRN PRN Reason: Heartburn Glucose (Glucose Gel 15 Gm Gel..Gram.) 15 gm PO Q15M PRN; Protocol PRN Reason: per Hypoglycemia Standing Ord. Dextrose (D10) 250 mls @ 750 mls/hr IV Q15M PRN; Protocol PRN Reason: per Hypoglycemia Standing Ord. Potassium Chloride/Sodium Chloride (Kcl 40 Meq In 0.9 % Sodium Chl) 40 meq in 1,000 mls @ 100 mls/hr IVCONT .Q10H MARYJO Potassium Phosphate (Kphos) 15 mmol in 250 mls @ 62.5 mls/hr IV Q4H MARYJO Stop: 09/20/23 04:59 Albumin Human (Kedbumin 25 %) 100 mls @ 100 mls/hr IV Q6H MARYJO Stop: 09/20/23 07:59 Last Admin: 09/19/23 12:59 Dose: 100 mls/hr Magnesium Hydroxide (Milk Of Magnesia 30 Ml Oral.Susp) 30 ml PO DAILY PRN PRN Reason: Constipation Melatonin (Melatonin 3 Mg Tablet) 6 mg PO BEDTIME PRN PRN Reason: Insomnia Potassium Chloride (Potassium Chloride Er 20 Meq Tab.Er.Prt) 60 meq PO DAILY MARYJO Last Admin: 09/19/23 12:59 Dose: 60 meq Sodium Chloride (0.9 % Sodium Chloride Flush 3 Ml Syringe) 3 ml IVFLUSH QSHIFT [facility] Home Medications ?Medication ?Instructions ?Recorded ?Confirmed ?Last Taken ?Type albuterol sulfate 90 mcg/actuation 2 puff PO Q4-6H PRN Wheezing 01/31/22 08/09/24 08/08/24 20:00 History aerosol inhaler (ProAir HFA) buspirone 10 mg tablet 10 mg PO TID anxiety 03/12/21 09/19/23 09/18/23 20:00 History cyclobenzaprine 10 mg tablet 10 mg PO TID 03/12/21 09/19/23 09/18/23 20:00 History duloxetine 60 mg capsule,delayed 60 mg PO DAILY 03/12/21 09/19/23 09/18/23 20:00 History release insulin degludec 200 unit/mL (3 44 unit subcut DAILY 03/12/21 09/19/23 09/18/23 20:00 History mL) subcutaneous pen (Tresiba FlexTouch U-200 insulin) lisinopril 2.5 mg tablet 2.5 mg PO DAILY 03/12/21 09/19/23 09/18/23 20:00 History metformin 500 mg tablet,extended 1,000 mg PO BID 03/12/21 09/19/23 09/18/23 20:00 History release 24 hr pantoprazole 40 mg tablet,delayed 40 mg PO DAILY 03/12/21 09/19/23 09/18/23 20:00 History release prazosin 2 mg capsule 2 mg PO BEDTIME 03/12/21 09/19/23 09/18/23 20:00 History budesonide-formoterol HFA 80 2 puff inhalation BID dyspnea 09/19/23 09/19/23 09/18/23 20:00 History mcg-4.5 mcg/actuation aerosol inhaler (Symbicort) dulaglutide 3 mg/0.5 mL 1.5 mg subcut TH 09/19/23 09/19/23 09/18/23 History subcutaneous pen injector (Trulicity) furosemide 40 mg tablet 40 mg PO DAILY 09/19/23 09/19/23 09/18/23 20:00 History pregabalin 300 mg PO BID 09/19/23 09/19/23 09/18/23 09:00 History 300 mg propranolol 10 mg tablet 10 mg PO DAILY 09/19/23 09/19/23 09/18/23 20:00 History rosuvastatin 40 mg tablet 40 mg PO BEDTIME 09/19/23 09/19/2309/17/24 20:00 History Physical Exam Vital Signs: Vital Signs: Last Vital Signs Temp 98.3 F 09/19/23 09:08 Pulse 71 09/19/23 13:00 Resp 18 09/19/23 13:00 BP 117/72 09/19/23 13:00 Pulse Ox 93 09/19/23 13:00 O2 Del Method Room Air 09/19/23 13:00 BMI result Body Mass Index 45.4 EXAM: GENERAL: The patient is morbidly obese-relaxed VITAL SIGNS:see workflow HEENT: Nonicteric sclerae, PERRLA, EOMI. Oropharynx clear. Moist mucous membranes. Conjunctivae appear well perfused. No thyroid mass. CHEST: Chest wall is nontender. HEART: Regular rate and rhythm without murmurs. LUNGS: Clear to auscultation bilaterally. ABDOMEN: Soft, positive bowel sounds, nontender, no organomegaly.no flank tenderness SKIN: No rash, no excessive bruising, petechiae, or purpura. NEUROLOGIC: Cranial nerves II-XII intact without motor/sensory deficit. Psych: normal affect Results Labs 09/18/23 22:41 09/19/23 17:22 Labs: Short CBC 09/18/23 Range/Units 22:41 WBC 5.4 (4.8-10.8) X10*3/uL Hgb 13.6 (12.0-16.0) g/dl Hct 37.6 (37.0-47.0) % Plt Count 83 L D (160-400) X10*3/uL BMP 09/18/23 09/19/23 09/19/23 22:41 00:55 04:41 Sodium 133 L 136 Potassium 2.2 L* 2.3 L* 2.2 L* Chloride 85 L 93 L Carbon Dioxide 34 H 31 H BUN 8 L 7 L Creatinine 1.42 H 1.28 Calcium 9.2 D 9.0 09/19/23 11:58 Sodium 141 Potassium 2.5 L* Chloride 103 Carbon Dioxide 30 H BUN 6 L Creatinine 0.98 Calcium 8.6 Liver Function 09/18/23 Range/Units 22:41 Total Bilirubin 1.2 H (0.0-1.0) mg/dL AST 44 H (5-31) U/L ALT 34 H (0-31) U/L Alkaline Phosphatase 222 H (39-117) U/L Albumin 3.2 L (3.5-5.0) g/dL Urine 09/19/23 Range/Units 00:11 Urine Color Yellow Urine Appearance Clear Urine pH 7.0 (5.0-9.0) Ur Specific [place] 1.010 (1.005-1.025) Urine Protein 100 (2+) H (Neg-Trace) mg/dL Urine Glucose (UA) >=1000 H (Negative) mg/dL ECG Attestation: I personally reviewed and interpreted this ECG as follows: (t wave flattening inf and ant leads, LVH) Assessment and Plan (1) Acute hypokalemia: Status: Acute Plan 1/ Nausea and vomiting, short lived, now improved could be gastroenteritis, cannabis related 2/ Hypokalemia 2/2 to 1/ above Plan: 1/ COnt with fludis, K replacement, if k fails to improve check Mag, Ca, and urine K Procedures Date of Service Date of Service: 09/19/23
--- NOTE | 2023-09-19 13:27 | PC.NURSE ---
Awaiting meds. per pharmacy.
--- NOTE | 2023-09-19 13:46 | PHA.MEDREC ---
Addendum entered by Chuy Chand [facility] 09/19/23 14:08: MED REC DOUBLE CHECKED Original Note: Pharmacy Consult ? Medication Reconciliation Pharmacy has completed the medication reconciliation. Confirmed medications with patient. She confirmed she is got Bisacodyl and Polyethylene Glycol powder for a colonoscopy scheduled in November. She also confirmed her Trulicity pen once a week on and she took that last 09/17. She confirmed her Tresiba FlexTouch pen and she gets 44 units @bedtime she last took that 09/17.
[2023-09-19] MEDS: KCl 40 mEq in 0.9 % Sodium Chl 40 MEQ/1,000 ML IV.SOLN 100 MEQ IVCONT (14:26)
--- NOTE | 2023-09-19 14:42 | PC.NURSE ---
Still awaiting Potassium Phosphate drip per pharmacy. Called again
[2023-09-19] MEDS: Potassium Phosphate/NS 15 MMOL/250 ML PLAST..BAG 62.5 MMOL IV (15:27)
--- NOTE | 2023-09-19 15:33 | PC.NURSE ---
Secondary IV access inserted- 20G to right upper forearm. Tolerated well by pt.
[2023-09-19 17:49] LABS: Anion Gap 13 (12-20); Blood Urea Nitrogen 6 mg/dL (9-16); Calcium 9.2 mg/dL (8.4-10.2); Carbon Dioxide 29 mmol/L (22-29); Chloride 103 mmol/L (96-108); Creatinine Clr Calc Pharmacy 79.1; Estimated Glomerular Filt Rate 47; Glucose Random 296 mg/dL (60-115); Potassium 3.1 mmol/L (3.3-5.1); Sodium 142 mmol/L (135-145)
[2023-09-19 20:28] LABS: Creatinine Urine 26.63 mg/dL; Potassium Urine Random 9.7 mmol/L
[2023-09-19 21:10] LABS: Glucose, Whole Blood 414 mg/dL (60-115)
[2023-09-19] MEDS: Cyclobenzaprine HCl 10 MG TABLET PO (21:52)
[2023-09-19] MEDS: busPIRone HCl 10 MG TABLET PO (21:52)
[2023-09-19] MEDS: 0.9 % Sodium Chloride Flush 3 ML SYRINGE IVFLUSH (21:53)
[2023-09-19] MEDS: Atorvastatin Calcium 80 MG TABLET PO (21:53)
[2023-09-19] MEDS: Insulin Lispro 100 UNIT/ML 3 ML VIAL SUBCUT (21:54)
[2023-09-19] MEDS: Insulin Regular, Human 100 UNIT/ML 10 ML VIAL IVPUSH (21:55)
[2023-09-19] MEDS: Prazosin HCL 1 MG CAPSULE 2 MG PO (22:07)
[2023-09-19] MEDS: Pregabalin 150 MG CAPSULE 300 MG PO (22:45)
[2023-09-19 23:29] LABS: Potassium Urine Random 17.3 mmol/L
[2023-09-19 23:58] LABS: CDiff Gene PCR NEGATIVE (Negative)
[2023-09-20] VITALS (8 sets, daily range): BP systolic 98–126; BP diastolic 55–80; PULSE 71–90; RESP 16–20; TEMP 36.3–36.7; O2SAT 93–98; BMI 45.4
[2023-09-20] MEDS: KCl 40 mEq in 0.9 % Sodium Chl 40 MEQ/1,000 ML IV.SOLN 100 MEQ IVCONT ×2 (00:31→11:11)
[2023-09-20 01:41] LABS: Anion Gap 13 (12-20); Blood Urea Nitrogen 6 mg/dL (9-16); Calcium 9.2 mg/dL (8.4-10.2); Carbon Dioxide 27 mmol/L (22-29); Chloride 108 mmol/L (96-108); Creatinine Clr Calc Pharmacy 84.6; Estimated Glomerular Filt Rate 50; Glucose Random 261 mg/dL (60-115); Potassium 2.9 mmol/L (3.3-5.1); Sodium 145 mmol/L (135-145)
[2023-09-20] MEDS: Albumin Human 25 % 100 ML IV ×4 (02:09→18:43)
[2023-09-20] MEDS: Potassium Chloride Packet 20 MEQ PACKET 40 MEQ PO (03:46)
[2023-09-20 06:41] LABS: MANUAL DIFF FLAG NO
[2023-09-20 06:44] LABS: Basophils Percent Auto 0.3 % (0-2); Eosinophils Percent Auto 0.9 % (0-4); Hematocrit 32.6 % (37.0-47.0); Hemoglobin 11.4 g/dl (12.0-16.0); Imm Gran Abs Auto 0.01 X10*3/uL (0.00-0.03); Imm Gran Pct Auto 0.3 % (0.0-0.4); Lymphocytes Absolute Auto 1.6 X10*3/uL (1.2-4.9); Mean Corpuscular Volume 91.6 fL (80.0-98.0); Mean Platelet Volume 11.8 fL (9.4-12.3); Monocytes Absolute Auto 0.2 X10*3/uL (0.1-1.2); Monocytes Percent Auto 5.5 % (2-11); Neutrophils Absolute Auto 1.5 x10*3/uL (2.0-8.3); Red Blood Count 3.56 X10*6/uL (4.20-5.50); Red Cell Distribution Width 14.9 % (11.0-16.0); White Blood Count 3.3 X10*3/uL (4.8-10.8)
[2023-09-20 06:48] LABS: Platelet Count 68 X10*3/uL (160-400)
[2023-09-20 07:23] LABS: Glucose, Whole Blood 212 mg/dL (60-115)
[2023-09-20 08:17] LABS: Anion Gap 11 (12-20); Blood Urea Nitrogen 5 mg/dL (9-16); Calcium 9.4 mg/dL (8.4-10.2); Carbon Dioxide 28 mmol/L (22-29); Chloride 112 mmol/L (96-108); Creatinine Clr Calc Pharmacy 89.3; Estimated Glomerular Filt Rate 54; Glucose Random 211 mg/dL (60-115); Phosphorus 1.7 mg/dL (2.7-4.5); Sodium 148 mmol/L (135-145)
[2023-09-20] MEDS: Insulin Glargine,Hum.rec.anlog 100 UNIT/ML 10 ML VIAL 22 UNIT SUBCUT (08:49)
[2023-09-20] MEDS: Propranolol HCL 10 MG TABLET PO (08:50)
[2023-09-20] MEDS: Insulin Lispro 100 UNIT/ML 3 ML VIAL SUBCUT ×4 (08:50→22:01)
[2023-09-20] MEDS: Potassium Chloride ER 20 MEQ TAB.ER.PRT 60 MEQ PO (08:51)
[2023-09-20] MEDS: Omeprazole 20 MG CAPSULE.DR PO (08:51)
[2023-09-20] MEDS: DULoxetine HCl 60 MG CAPSULE.DR PO (08:51)
[2023-09-20] MEDS: busPIRone HCl 10 MG TABLET PO ×3 (08:51→22:01)
[2023-09-20] MEDS: Cyclobenzaprine HCl 10 MG TABLET PO ×3 (08:55→22:01)
[2023-09-20] MEDS: 0.9 % Sodium Chloride Flush 3 ML SYRINGE IVFLUSH ×2 (08:56→16:24)
[2023-09-20] MEDS: Fluticasone/Vilanterol 100/25 BLST.W.DEV 1 PUFF INHALE (09:12)
[2023-09-20 10:57] LABS: Glucose, Whole Blood 408 mg/dL (60-115)
--- NOTE | 2023-09-20 12:09 | MHC.CM.PN ---
Addendum entered by Gabrielle Lai 09/20/23 14:23: CM discussed HCP with pt. she declined to complete one. Original Note: Pt. was asleep, her daughter was in room and answered questions. Pt lives with family, has 13 hours of [employer] services a week. For DME she has a walker and CPAP machine. Family to transport home at [place]. HCP form to be completed here and added to chart. DCP: home, resume [employer] services. CM to follow for DC needs.
[2023-09-20 13:41] LABS: Anion Gap 13 (12-20); Blood Urea Nitrogen 5 mg/dL (9-16); Calcium 9.3 mg/dL (8.4-10.2); Carbon Dioxide 24 mmol/L (22-29); Chloride 111 mmol/L (96-108); Creatinine Clr Calc Pharmacy 77.8; Estimated Glomerular Filt Rate 46; Glucose Random 343 mg/dL (60-115); Potassium 3.3 mmol/L (3.3-5.1); Sodium 145 mmol/L (135-145)
[2023-09-20] MEDS: Insulin Glargine,Hum.rec.anlog 100 UNIT/ML 10 ML VIAL 10 UNIT SUBCUT (13:47)
[2023-09-20] MEDS: Potassium Chloride ER 20 MEQ TAB.ER.PRT 40 MEQ PO (13:48)
--- NOTE | 2023-09-20 14:08 | P.PNIM_ITS ---
Subjective Subjective Date of Service: 09/20/23 Interval History: hypokalemia boderline bp Review of Systems denies new complaints Encouraged for p.o. intake Physical Exam 2 Vital Signs: Vital Signs: Last Vital Signs Temp 97.5 F 09/20/23 11:07 Pulse 88 09/20/23 11:07 Resp 20 09/20/23 11:07 BP 98/55 L 09/20/23 11:07 Pulse Ox 94 09/20/23 11:07 O2 Del Method Room Air 09/20/23 11:07 BMI result Body Mass Index 45.4 Appearance: Alert.? Oriented X3.? cvs: rrr, [id number] , no murmur res: clear to auscultation ,no rhonchii or wheezing abd: no rebound or guarding ,nt, bs present. ext pulses present , no cyanosis . neuro: axo3 , nonfocal. Objective Data Active Medications Albuterol Sulfate (Albuterol Sulfate 90 Mcg 8 Gm Inhaler) 2 puff INHALE Q4H PRN PRN Reason: Wheezing Atorvastatin Calcium (Atorvastatin Calcium 80 Mg Tablet) 80 mg PO BEDTIME [facility] Last Admin: 09/19/23 21:53 Dose: 80 mg Documented By: FREDY Buspirone HCl (Buspirone Hcl 10 Mg Tablet) 10 mg PO TID [facility] Last Admin: 09/20/23 08:51 Dose: 10 mg Documented By: JO-ANN Calcium Carbonate (Calcium Carbonate 750 Mg Tab.Chew) 750 mg PO Q4H PRN PRN Reason: Heartburn Cyclobenzaprine HCl (Cyclobenzaprine Hcl 10 Mg Tablet) 10 mg PO TID [facility] Last Admin: 09/20/23 08:55 Dose: 10 mg Documented By: JO-ANN Duloxetine HCl (Duloxetine Hcl 60 Mg Capsule.Dr) 60 mg PO DAILY [facility] Last Admin: 09/20/23 08:51 Dose: 60 mg Documented By: JO-ANN Fluticasone/Vilanterol (Fluticasone/Vilanterol 100/25 Blst.W.Dev) 1 puff INHALE RDAILY [facility] Last Admin: 09/20/23 09:12 Dose: 1 puff Documented By: DELMY Glucose (Glucose Gel 15 Gm Gel..Gram.) 15 gm PO Q15M PRN; Protocol PRN Reason: per Hypoglycemia Standing Ord. Dextrose (D10) 250 mls @ 750 mls/hr IV Q15M PRN; Protocol PRN Reason: per Hypoglycemia Standing Ord. Albumin Human (Kedbumin 25 %) 100 mls @ 100 mls/hr IV Q6H MARYJO Stop: 09/21/23 07:29 Last Admin: 09/20/23 13:48 Dose: 100 mls/hr Documented By: JO-ANN Insulin Glargine (Insulin Glargine,Hum.Rec.Anlog 100 Unit/Ml 10 Ml Vial) 22 unit SUBCUT DAILY MARYJO Last Admin: 09/20/23 08:49 Dose: 22 unit Documented By: JO-ANN Insulin Human Lispro (Insulin Lispro 100 Unit/Ml 3 Ml Vial) 0 unit SUBCUT QIDACHS MARYJO; Protocol Last Admin: 09/20/23 11:11 Dose: 14 unit Documented By: JO-ANN Magnesium Hydroxide (Milk Of Magnesia 30 Ml Oral.Susp) 30 ml PO DAILY PRN PRN Reason: Constipation Melatonin (Melatonin 3 Mg Tablet) 6 mg PO BEDTIME PRN PRN Reason: Insomnia Omeprazole (Omeprazole 20 Mg Capsule.Dr) 20 mg PO DAILY MARYJO Last Admin: 09/20/23 08:51 Dose: 20 mg Documented By: JO-ANN Potassium Chloride (Potassium Chloride Er 20 Meq Tab.Er.Prt) 60 meq PO DAILY MARYJO Last Admin: 09/20/23 08:51 Dose: 60 meq Documented By: JO-ANN Prazosin HCl (Prazosin Hcl 1 Mg Capsule) 2 mg PO BEDTIME MARYJO; Protocol Last Admin: 09/19/23 22:07 Dose: 2 mg Documented By: FREDY Propranolol HCl (Propranolol Hcl 10 Mg Tablet) 10 mg PO DAILY MARYJO; Protocol Last Admin: 09/20/23 08:50 Dose: 10 mg Documented By: JO-ANN Sodium Chloride (0.9 % Sodium Chloride Flush 3 Ml Syringe) 3 ml IVFLUSH QSHIFT [facility] Last Admin: 09/20/23 08:56 Dose: 3 ml Documented By: JO-ANN Labs 09/20/23 06:07 09/20/23 12:39 Labs: Laboratory Results - last 24 hr 09/19/23 09/19/23 09/19/23 00:11 17:22 21:06 MCV MCH MCHC RDW Plt Count MPV Immature Gran % (Auto) Neut % (Auto) Lymph % (Auto) [place] % (Auto) Eos % (Auto) Baso % (Auto) Lymph # (Auto) [place] # (Auto) Eos # (Auto) Baso # (Auto) Abs Immat Gran (auto) Absolute Neuts (auto) Absolute Nucleated RBC Nucleated RBC % (auto) Anion Gap 13 Estim Creat Clear Calc 79.1 Estimated GFR 47 POC Glucose 414 H* Random Glucose 296 H Calcium 9.2 D Phosphorus TSH Ur Random Sodium 22.0 Ur Random Potassium 9.7 Ur Random Chloride 21.0 Urine Creatinine 26.63 C. difficile Tox B Gene 09/19/23 09/19/23 09/20/23 22:54 22:55 01:15 MCV MCH MCHC RDW Plt Count MPV Immature Gran % (Auto) Neut % (Auto) Lymph % (Auto) [place] % (Auto) Eos % (Auto) Baso % (Auto) Lymph # (Auto) [place] # (Auto) Eos # (Auto) Baso # (Auto) Abs Immat Gran (auto) Absolute Neuts (auto) Absolute Nucleated RBC Nucleated RBC % (auto) Anion Gap 13 Estim Creat Clear Calc 84.6 Estimated GFR 50 POC Glucose Random Glucose 261 H Calcium 9.2 Phosphorus TSH Ur Random Sodium 70.0 Ur Random Potassium 17.3 Ur Random Chloride 43.0 Urine Creatinine C. difficile Tox B Gene NEGATIVE 09/20/23 09/20/23 09/20/23 06:07 07:19 07:50 MCV 91.6 MCH 32.0 MCHC 35.0 RDW 14.9 Plt Count 68 L MPV 11.8 Immature Gran % (Auto) 0.3 Neut % (Auto) 45.0 Lymph % (Auto) 48.0 H [place] % (Auto) 5.5 Eos % (Auto) 0.9 Baso % (Auto) 0.3 Lymph # (Auto) 1.6 [place] # (Auto) 0.2 Eos # (Auto) 0.0 Baso # (Auto) 0.0 Abs Immat Gran (auto) 0.01 Absolute Neuts (auto) 1.5 L Absolute Nucleated RBC 0.000 Nucleated RBC % (auto) 0.0 Anion Gap 11 L Estim Creat Clear Calc 89.3 Estimated GFR 54 POC Glucose 212 H Random Glucose 211 H Calcium 9.4 Phosphorus 1.7 L TSH Ur Random Sodium Ur Random Potassium Ur Random Chloride Urine Creatinine C. difficile Tox B Gene 09/20/23 09/20/23 10:53 12:39 MCV MCH MCHC RDW Plt Count MPV Immature Gran % (Auto) Neut % (Auto) Lymph % (Auto) [place] % (Auto) Eos % (Auto) Baso % (Auto) Lymph # (Auto) [place] # (Auto) Eos # (Auto) Baso # (Auto) Abs Immat Gran (auto) Absolute Neuts (auto) Absolute Nucleated RBC Nucleated RBC % (auto) Anion Gap 13 Estim Creat Clear Calc 77.8 Estimated GFR 46 POC Glucose 408 H* Random Glucose 343 H Calcium 9.3 Phosphorus TSH 1.30 Ur Random Sodium Ur Random Potassium Ur Random Chloride Urine Creatinine C. difficile Tox B Gene Microbiology Microbiology Results: Microbiology 09/18/23 22:56 Blood Culture - Preliminary Blood - Venous No growth after 24 hours. Assessment and Plan (1) Hypernatremia: Status: Acute (2) Acute hypokalemia: Status: Acute Plan 47-year-old female with history of moderate persistent asthma, migraines, hepatic cirrhosis, insulin-dependent type 2 diabetes, hyperlipidemia, hypertension, GERD, history of bacteremia secondary to infected left ureteral stone, and mood disorder admitted for severe refractory hypokalemia Severe refractory hypokalemia -w/ associated anorexia,Gi losses and 10 lb unintentional weight loss suspected related to Trulicity received multiple poatssium repletion poatssium 3.0,sodium 148 acute hypernatremia -also due to gi loss/poor oral inatke and ns plan: monitor on tele stop ns added extra po potassium 40 meq hold lasix moniter electrolytes closely Nephrology consult CARON- resolved on admission -likely due to hypovolemia/hypoperfusion from poor po intake and gi losses improved. Acute abd pain: possible related to nausea/vomiting resolved Nausea/Vomiting/Diarrhea- possible viral gasterentritis vs marijuana related. seems improved with supportive case gi panel -pending and cdiff pcr neg acute on Chronic lactic acidosis -due to metformin use and hypovolemia/metformin/hyperglycemia related, Not severe sepsis -hold metformin, Trulicity, Invokana improving,no further lactic acid trending. Hypotension -due to hypoperfusion/hypovolemia, resolved on admission improved with hydration,continue iv albumin x4,patient asymptomatic. insulin-dependent type 2 diabetes with hyperglycemia adjusted lantus 32 units and Humalog on sliding scale, POC glucose, diabetic diet -monitor sugars closely hypophosphatemia -r/t above -neprhology consult hypertension -hold diuretics in setting of hypotension hepatic cirrhosis -compensated, hold diuretics in setting of hypotension diabetic polyneuropathy -continue Lyrica mood disorder -continue home medications chronic thrombocytopenia -due to cirrhosis DVT prophylaxis-scps due to thrombocytopenia activity oob Full code Patient requires inpatient stay ongoing for management of refractory severe hypokalemia requiring IV potassium, close cardiac monitoring, and expert consultation Quality Stroke Does the patient have a stroke diagnosis?: No VTE Prior VTE?: No VTE Risk Level:: Medical - moderate - high VTE Device Contraindication: Treatment Not Indicated VTE Drug Contraindication: N/A - Med Ordered
[2023-09-20 16:16] LABS: Glucose, Whole Blood 337 mg/dL (60-115)
[2023-09-20 21:16] LABS: Glucose, Whole Blood 212 mg/dL (60-115)
[2023-09-20] MEDS: Prazosin HCL 1 MG CAPSULE 2 MG PO (22:01)
[2023-09-20] MEDS: Atorvastatin Calcium 80 MG TABLET PO (22:02)
[2023-09-21] MEDS: Albumin Human 25 % 100 ML IV ×2 (01:04→06:20)
[2023-09-21] MEDS: 0.9 % Sodium Chloride Flush 3 ML SYRINGE IVFLUSH ×4 (01:04→21:01)
[2023-09-21 04:00] VITALS: BP 101/54; PULSE 85; RESP 20; TEMP 37.1; O2SAT 96
[2023-09-21 07:14] LABS: Cortisol Random 4.6 ug/dL
[2023-09-21 07:35] VITALS: BP 110/59; PULSE 82; RESP 20; TEMP 36.4; O2SAT 92
[2023-09-21] MEDS: Fluticasone/Vilanterol 100/25 BLST.W.DEV 1 PUFF INHALE (07:41)
[2023-09-21 07:42] VITALS: PULSE 83; RESP 16; O2SAT 96
[2023-09-21 07:44] LABS: Glucose, Whole Blood 298 mg/dL (60-115)
[2023-09-21] MEDS: Cyclobenzaprine HCl 10 MG TABLET PO ×3 (08:17→21:01)
[2023-09-21] MEDS: Potassium Chloride ER 20 MEQ TAB.ER.PRT 60 MEQ PO (08:17)
[2023-09-21] MEDS: Omeprazole 20 MG CAPSULE.DR PO (08:18)
[2023-09-21] MEDS: busPIRone HCl 10 MG TABLET PO ×3 (08:18→21:01)
[2023-09-21] MEDS: Insulin Lispro 100 UNIT/ML 3 ML VIAL SUBCUT ×4 (08:18→21:01)
[2023-09-21] MEDS: Propranolol HCL 10 MG TABLET PO (08:18)
[2023-09-21] MEDS: DULoxetine HCl 60 MG CAPSULE.DR PO (08:18)
[2023-09-21] MEDS: Insulin Glargine,Hum.rec.anlog 100 UNIT/ML 10 ML VIAL 22 UNIT SUBCUT (08:18)
[2023-09-21] MEDS: Butalb/Acetamin/Caff 50/325/40 TABLET 1 TAB PO (09:38)
--- NOTE | 2023-09-21 10:19 | PC.RT ---
pt refusing to wear our cpap and only wants hers at home. She said she would bring it in yesterday but the machine is still not here.
[2023-09-21 11:00] VITALS: BP 131/67; PULSE 74; RESP 20; TEMP 36; O2SAT 97
[2023-09-21 11:07] LABS: Glucose, Whole Blood 259 mg/dL (60-115)
--- NOTE | 2023-09-21 11:38 | P.PNIM_ITS ---
Subjective Subjective Date of Service: 09/21/23 Interval History: electrolytic abnormalities ,low cortisol Review of Systems po inatke ,bp seems improving denies new c/o Physical Exam 2 Vital Signs: Vital Signs: Last Vital Signs Temp 96.8 F 09/21/23 11:00 Pulse 74 09/21/23 11:00 Resp 20 09/21/23 11:00 BP 131/67 09/21/23 11:00 Pulse Ox 97 09/21/23 11:00 O2 Del Method Room Air 09/21/23 11:00 BMI result Body Mass Index 45.4 Objective Data Active Medications Acetaminophen/Butalbital/Caffeine (Butalb/Acetamin/Caff 50/325/40 Tablet) 1 tab PO Q4H PRN PRN Reason: Pain, Mild (Pain Scale 1-3) Last Admin: 09/21/23 09:38 Dose: 1 tab Documented By: PAO Albuterol Sulfate (Albuterol Sulfate 90 Mcg 8 Gm Inhaler) 2 puff INHALE Q4H PRN PRN Reason: Wheezing Atorvastatin Calcium (Atorvastatin Calcium 80 Mg Tablet) 80 mg PO BEDTIME [facility] Last Admin: 09/20/23 22:02 Dose: 80 mg Documented By: FREDY Buspirone HCl (Buspirone Hcl 10 Mg Tablet) 10 mg PO TID [facility] Last Admin: 09/21/23 08:18 Dose: 10 mg Documented By: PAO Calcium Carbonate (Calcium Carbonate 750 Mg Tab.Chew) 750 mg PO Q4H PRN PRN Reason: Heartburn Cyclobenzaprine HCl (Cyclobenzaprine Hcl 10 Mg Tablet) 10 mg PO TID [facility] Last Admin: 09/21/23 08:17 Dose: 10 mg Documented By: PAO Duloxetine HCl (Duloxetine Hcl 60 Mg Capsule.Dr) 60 mg PO DAILY [facility] Last Admin: 09/21/23 08:18 Dose: 60 mg Documented By: PAO Fluticasone/Vilanterol (Fluticasone/Vilanterol 100/25 Blst.W.Dev) 1 puff INHALE RDAILY [facility] Last Admin: 09/21/23 07:41 Dose: 1 puff Documented By: DELMY Glucose (Glucose Gel 15 Gm Gel..Gram.) 15 gm PO Q15M PRN; Protocol PRN Reason: per Hypoglycemia Standing Ord. Dextrose (D10) 250 mls @ 750 mls/hr IV Q15M PRN; Protocol PRN Reason: per Hypoglycemia Standing Ord. Insulin Glargine (Insulin Glargine,Hum.Rec.Anlog 100 Unit/Ml 10 Ml Vial) 22 unit SUBCUT DAILY [facility] Last Admin: 09/21/23 08:18 Dose: 22 unit Documented By: PAO Insulin Human Lispro (Insulin Lispro 100 Unit/Ml 3 Ml Vial) 0 unit SUBCUT QIDACHS [facility]; Protocol Last Admin: 09/21/23 08:18 Dose: 8 unit Documented By: PAO Magnesium Hydroxide (Milk Of Magnesia 30 Ml Oral.Susp) 30 ml PO DAILY PRN PRN Reason: Constipation Melatonin (Melatonin 3 Mg Tablet) 6 mg PO BEDTIME PRN PRN Reason: Insomnia Omeprazole (Omeprazole 20 Mg Capsule.Dr) 20 mg PO DAILY [facility] Last Admin: 09/21/23 08:18 Dose: 20 mg Documented By: PAO Potassium Chloride (Potassium Chloride Er 20 Meq Tab.Er.Prt) 60 meq PO DAILY [facility] Last Admin: 09/21/23 08:17 Dose: 60 meq Documented By: PAO Prazosin HCl (Prazosin Hcl 1 Mg Capsule) 2 mg PO BEDTIME [facility]; Protocol Last Admin: 09/20/23 22:01 Dose: 2 mg Documented By: FREDY Propranolol HCl (Propranolol Hcl 10 Mg Tablet) 10 mg PO DAILY [facility]; Protocol Last Admin: 09/21/23 08:18 Dose: 10 mg Documented By: PAO Sodium Chloride (0.9 % Sodium Chloride Flush 3 Ml Syringe) 3 ml IVFLUSH QSHIFT [facility] Last Admin: 09/21/23 08:19 Dose: 3 ml Documented By: PAO Labs 09/20/23 06:07 09/21/23 08:18 Labs: Laboratory Results - last 24 hr 09/19/23 09/20/23 09/20/23 22:57 12:39 16:12 Hold Purple Top Anion Gap 13 Estim Creat Clear Calc 77.8 Estimated GFR 46 POC Glucose 337 H Random Glucose 343 H Calcium 9.3 TSH 1.30 Random Cortisol Stl C. cayetanensis PCR Cancelled Stool Rotavirus A PCR Cancelled Stl Adenov F 40/41 PCR Cancelled Stool Astrovirus (PCR) Cancelled Stool Campylobacter PCR Cancelled Stool Cryptosporidium PCR Cancelled Stl Sh Tox Pr E STEC PCR Cancelled Stool E coli O157 PCR Cancelled Stl Enterotoxigenic E PCR Cancelled Stool EPEC (PCR) Cancelled Stool EAEC (PCR) Cancelled Stl E. histolytica PCR Cancelled Stool Giardia Lamblia PCR Cancelled Stl P. shigelloides PCR Cancelled Stool Salmonella PCR Cancelled Stool Sapovirus (PCR) Cancelled Stl Shigella/EIEC PCR Cancelled St Y.enterocolitica PCR Cancelled Stool Vibrio (PCR) Cancelled Stl Vibrio cholerae PCR Cancelled Stl Norovirus GI/GII PCR Cancelled 09/20/23 09/21/23 09/21/23 21:07 06:09 07:37 Hold Purple Top SEE NOTE Anion Gap Estim Creat Clear Calc Estimated GFR POC Glucose 212 H 298 H Random Glucose Calcium TSH Random Cortisol 4.6 Stl C. cayetanensis PCR Stool Rotavirus A PCR Stl Adenov F PCR Stool Astrovirus (PCR) Stool Campylobacter PCR Stool Cryptosporidium PCR Stl Sh Tox Pr E STEC PCR Stool E coli O157 PCR Stl Enterotoxigenic E PCR Stool EPEC (PCR) Stool EAEC (PCR) Stl E. histolytica PCR Stool Giardia Lamblia PCR Stl P. shigelloides PCR Stool Salmonella PCR Stool Sapovirus (PCR) Stl Shigella/EIEC PCR St Y.enterocolitica PCR Stool Vibrio (PCR) Stl Vibrio cholerae PCR Stl Norovirus GI/GII PCR 09/21/23 11:02 Hold Purple Top Anion Gap Estim Creat Clear Calc Estimated GFR POC Glucose 259 H Random Glucose Calcium TSH Random Cortisol Stl C. cayetanensis PCR Stool Rotavirus A PCR Stl Adenov F PCR Stool Astrovirus (PCR) Stool Campylobacter PCR Stool Cryptosporidium PCR Stl Sh Tox Pr E STEC PCR Stool E coli O157 PCR Stl Enterotoxigenic E PCR Stool EPEC (PCR) Stool EAEC (PCR) Stl E. histolytica PCR Stool Giardia Lamblia PCR Stl P. shigelloides PCR Stool Salmonella PCR Stool Sapovirus (PCR) Stl Shigella/EIEC PCR St Y.enterocolitica PCR Stool Vibrio (PCR) Stl Vibrio cholerae PCR Stl Norovirus GI/GII PCR Microbiology Microbiology Results: Microbiology 09/18/23 22:56 Blood Culture - Preliminary Blood - Venous No growth after 48 hours. Assessment and Plan (1) Hypernatremia: Status: Acute (2) Acute hypokalemia: Status: Acute Plan 47-year-old female with history of moderate persistent asthma, migraines, hepatic cirrhosis, insulin-dependent type 2 diabetes, hyperlipidemia, hypertension, GERD, history of bacteremia secondary to infected left ureteral stone, and mood disorder admitted for severe refractory hypokalemia Severe refractory hypokalemia -w/ associated anorexia,Gi losses and 10 lb unintentional weight loss suspected related to Trulicity received multiple poatssium repletion poatssium 3.0,sodium 148 acute hypernatremia -also due to gi loss/poor oral inatke and ns plan: monitor on tele stop ns added extra po potassium 40 meq hold lasix moniter electrolytes closely Nephrology consult nited. hypotension /electrolytic abnormalities boderline cortisol levels will added cosyntropin test (d/w endocrinlogy). CARON- resolved on admission -likely due to hypovolemia/hypoperfusion from poor po intake and gi losses improved. Acute abd pain: possible related to nausea/vomiting resolved Nausea/Vomiting/Diarrhea- possible viral gasterentritis vs marijuana related. seems improved with supportive case gi panel -pending and cdiff pcr neg acute on Chronic lactic acidosis -due to metformin use and hypovolemia/metformin/hyperglycemia related, Not severe sepsis -hold metformin, Trulicity, Invokana improving,no further lactic acid trending. Hypotension -due to hypoperfusion/hypovolemia, resolved on admission improved with hydration,continue iv albumin x4,patient asymptomatic. insulin-dependent type 2 diabetes with hyperglycemia adjusted lantus 32 units and Humalog on sliding scale, POC glucose, diabetic diet -monitor sugars closely hypophosphatemia -r/t above -neprhology consult hypertension -hold diuretics in setting of hypotension hepatic cirrhosis -compensated, hold diuretics in setting of hypotension diabetic polyneuropathy -continue Lyrica mood disorder -continue home medications chronic thrombocytopenia -due to cirrhosis DVT prophylaxis-scps due to thrombocytopenia activity oob Full code Patient requires inpatient stay ongoing for management of refractory severe hypokalemia requiring IV potassium, close cardiac monitoring, and expert consultation Quality Stroke Does the patient have a stroke diagnosis?: No VTE Prior VTE?: No VTE Risk Level:: Medical - moderate - high VTE Device Contraindication: Treatment Not Indicated VTE Drug Contraindication: N/A - Med Ordered
[2023-09-21] MEDS: Milk of Magnesia 30 ML ORAL.SUSP PO (12:51)
[2023-09-21 13:11] LABS: Anion Gap 12 (12-20); Blood Urea Nitrogen 4 mg/dL (9-16); Calcium 9.4 mg/dL (8.4-10.2); Carbon Dioxide 22 mmol/L (22-29); Chloride 110 mmol/L (96-108); Creatinine Clr Calc Pharmacy 74.2; Estimated Glomerular Filt Rate 43; Glucose Random 321 mg/dL (60-115); Magnesium 1.9 mg/dL (1.6-2.6); Sodium 141 mmol/L (135-145)
[2023-09-21] MEDS: Cosyntropin 0.25 MG VIAL IVPUSH (13:38)
[2023-09-21] MEDS: Potassium Chloride Packet 20 MEQ PACKET 40 MEQ PO (14:12)
[2023-09-21 16:00] VITALS: BP 129/60; PULSE 69; RESP 18; TEMP 36.6; O2SAT 97
[2023-09-21 16:11] LABS: Glucose, Whole Blood 282 mg/dL (60-115)
[2023-09-21 19:46] VITALS: BP 135/68; PULSE 74; RESP 20; TEMP 36.5; O2SAT 94
[2023-09-21] MEDS: Atorvastatin Calcium 80 MG TABLET PO (21:01)
[2023-09-21] MEDS: Pregabalin 150 MG CAPSULE 300 MG PO (21:01)
[2023-09-21] MEDS: Prazosin HCL 1 MG CAPSULE 2 MG PO (21:01)
[2023-09-22] VITALS (9 sets, daily range): BP systolic 102–150; BP diastolic 52–75; PULSE 74–98; RESP 17–20; TEMP 36.1–36.7; O2SAT 92–98
[2023-09-22 00:09] LABS: Glucose, Whole Blood 271 mg/dL (60-115)
[2023-09-22 07:23] LABS: Glucose, Whole Blood 220 mg/dL (60-115)
[2023-09-22] MEDS: Fluticasone/Vilanterol 100/25 BLST.W.DEV 1 PUFF INHALE (07:48)
[2023-09-22] MEDS: Insulin Lispro 100 UNIT/ML 3 ML VIAL SUBCUT ×5 (07:56→20:54)
[2023-09-22] MEDS: Potassium Chloride ER 20 MEQ TAB.ER.PRT 60 MEQ PO (07:56)
[2023-09-22] MEDS: Insulin Glargine,Hum.rec.anlog 100 UNIT/ML 10 ML VIAL 22 UNIT SUBCUT (07:56)
[2023-09-22] MEDS: Omeprazole 20 MG CAPSULE.DR PO (07:56)
[2023-09-22] MEDS: DULoxetine HCl 60 MG CAPSULE.DR PO (07:57)
[2023-09-22] MEDS: Cyclobenzaprine HCl 10 MG TABLET PO ×3 (07:57→19:44)
[2023-09-22] MEDS: Butalb/Acetamin/Caff 50/325/40 TABLET 1 TAB PO (07:57)
[2023-09-22] MEDS: busPIRone HCl 10 MG TABLET PO ×3 (07:57→19:45)
[2023-09-22] MEDS: Pregabalin 150 MG CAPSULE 300 MG PO ×2 (07:57→19:44)
[2023-09-22] MEDS: Propranolol HCL 10 MG TABLET PO (07:57)
[2023-09-22] MEDS: 0.9 % Sodium Chloride Flush 3 ML SYRINGE IVFLUSH ×2 (08:05→17:25)
[2023-09-22 09:47] LABS: Anion Gap 10 (12-20); Blood Urea Nitrogen 4 mg/dL (9-16); Calcium 8.9 mg/dL (8.4-10.2); Carbon Dioxide 24 mmol/L (22-29); Chloride 110 mmol/L (96-108); Estimated Glomerular Filt Rate 45; Sodium 141 mmol/L (135-145)
[2023-09-22 09:50] LABS: Glucose Random 408 mg/dL (60-115); Potassium 2.9 mmol/L (3.3-5.1)
--- NOTE | 2023-09-22 11:00 | MHC.CM.PN ---
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
[2023-09-22 11:18] LABS: Glucose, Whole Blood 432 mg/dL (60-115)
[2023-09-22] MEDS: Potassium Chloride ER 20 MEQ TAB.ER.PRT 40 MEQ PO (11:35)
--- NOTE | 2023-09-22 12:16 | P.CONNP_ITS ---
History of Present Illness Reason for Consult Consult date: 09/22/23 Reason for consult: Hypokalemia Chief Complaint Chief complaint: abnormal labs History of Present Illness Narrative: 47-year-old female with hepatic cirrhosis, insulin-dependent type 2 diabetes, hypertension presented to the ER with abdominal pain, nausea, vomiting, diarrhea and abnormal labs reported by PCP office. 2 days prior to presentation she has had about 2 episodes of vomiting and diarrhea per day with associated abdominal pain. She is also reporting anorexia with about 10 lb of unintentional weight loss . She is using Trulicity which was started about 4 months ago. She states that she has really not been eating much at all, maybe once daily and drinking limited fluids. She does also smoke marijuana regularly throughout the day and smokes 4-5 cigarettes on a daily basis. No alcohol use or illicit drug use. She was told by her primary care provider that her potassium levels were low and glucose levels were high. At presentation she has been initially hypotensive to 64/41 but 104/66 on admission following IV fluids. Initially with elevated creatinine of 1.70, baseline around 1.1. Her potassium level was 2.2. CT abdomen/pelvis negative for any acute intra-abdominal abnormality which shows cirrhotic liver with splenomegaly. She was admitted for further management. Nephrology has been consulted to assist in the clinical care during her current hospital stay. Review of Systems Review of Systems Yes all other systems are reviewed and are negative PMFSH Past Medical History Medical History Chronic abdominal pain PTSD (post-traumatic stress disorder) Cirrhosis Cholecystectomy planned delivery delivered Migraine Asthma Diabetes Spleen enlarged Enlarged liver Hernia Family History Family History Mother Diabetes Anxiety Depressed Arthritis Migraine Surgical History Surgical History Status post anal fissurectomy Social History Social History Household Members: Spouse and Children Household Members Other:: she has 6 children and 12 grandchildren- [address] on [address] Housing: House Do you presently have visiting nurse or other home services: No Alcohol intake: former Comment: back Patient Tobacco Use Status: Current everyday Tobacco user Tobacco use type: Cigarette Cigarette Packs Per Day: 0.5 Cigarettes Per Day: 10.0 Years Smoked: 30 e-Cigarette/Vaping Use: Never Used Substance Use Type: Marijuana service: No Current occupational status: unemployed Meds Allergies Allergy/AdvReac Type Severity Reaction Status Date / Time acetaminophen [From TYLENOL] Allergy Unknown LIVER Verified 09/18/23 22:19 SWELLING Active Medications: Current Medications Acetaminophen/Butalbital/Caffeine (Butalb/Acetamin/Caff 50/325/40 Tablet) 1 tab PO Q4H PRN PRN Reason: Pain, Mild (Pain Scale 1-3) Last Admin: 09/22/23 07:57 Dose: 1 tab Albuterol Sulfate (Albuterol Sulfate 90 Mcg 8 Gm Inhaler) 2 puff INHALE Q4H PRN PRN Reason: Wheezing Atorvastatin Calcium (Atorvastatin Calcium 80 Mg Tablet) 80 mg PO BEDTIME [facility] Last Admin: 09/21/23 21:01 Dose: 80 mg Buspirone HCl (Buspirone Hcl 10 Mg Tablet) 10 mg PO TID [facility] Last Admin: 09/22/23 07:57 Dose: 10 mg Calcium Carbonate (Calcium Carbonate 750 Mg Tab.Chew) 750 mg PO Q4H PRN PRN Reason: Heartburn Cyclobenzaprine HCl (Cyclobenzaprine Hcl 10 Mg Tablet) 10 mg PO TID [facility] Last Admin: 09/22/23 07:57 Dose: 10 mg Duloxetine HCl (Duloxetine Hcl 60 Mg Capsule.Dr) 60 mg PO DAILY [facility] Last Admin: 09/22/23 07:57 Dose: 60 mg Fluticasone/Vilanterol (Fluticasone/Vilanterol 100/25 Blst.W.Dev) 1 puff INHALE RDAILY [facility] Last Admin: 09/22/23 07:48 Dose: 1 puff Glucose (Glucose Gel 15 Gm Gel..Gram.) 15 gm PO Q15M PRN; Protocol PRN Reason: per Hypoglycemia Standing Ord. Dextrose (D10) 250 mls @ 750 mls/hr IV Q15M PRN; Protocol PRN Reason: per Hypoglycemia Standing Ord. Insulin Glargine (Insulin Glargine,Hum.Rec.Anlog 100 Unit/Ml 10 Ml Vial) 22 unit SUBCUT DAILY [facility] Last Admin: 09/22/23 07:56 Dose: 22 unit Insulin Human Lispro (Insulin Lispro 100 Unit/Ml 3 Ml Vial) 0 unit SUBCUT QIDACHS [facility]; Protocol Last Admin: 09/22/23 11:35 Dose: 14 unit Magnesium Hydroxide (Milk Of Magnesia 30 Ml Oral.Susp) 30 ml PO DAILY PRN PRN Reason: Constipation Last Admin: 09/21/23 12:51 Dose: 30 ml Melatonin (Melatonin 3 Mg Tablet) 6 mg PO BEDTIME PRN PRN Reason: Insomnia Omeprazole (Omeprazole 20 Mg Capsule.Dr) 20 mg PO DAILY [facility] Last Admin: 09/22/23 07:56 Dose: 20 mg Potassium Chloride (Potassium Chloride Er 20 Meq Tab.Er.Prt) 60 meq PO DAILY [facility] Last Admin: 09/22/23 07:56 Dose: 60 meq Prazosin HCl (Prazosin Hcl 1 Mg Capsule) 2 mg PO BEDTIME [facility]; Protocol Last Admin: 09/21/23 21:01 Dose: 2 mg Pregabalin (Pregabalin 150 Mg Capsule) 300 mg PO BID [facility] Last Admin: 09/22/23 07:57 Dose: 300 mg Propranolol HCl (Propranolol Hcl 10 Mg Tablet) 10 mg PO DAILY [facility]; Protocol Last Admin: 09/22/23 07:57 Dose: 10 mg Sodium Chloride (0.9 % Sodium Chloride Flush 3 Ml Syringe) 3 ml IVFLUSH QSHIFT [facility] Last Admin: 09/22/23 08:05 Dose: 3 ml Home Medications ?Medication ?Instructions ?Recorded ?Confirmed ?Last Taken ?Type albuterol sulfate 90 mcg/actuation 2 puff PO Q4-6H PRN Wheezing 03/12/21 09/19/23 09/18/23 20:00 History aerosol inhaler (ProAir HFA) buspirone 10 mg tablet 10 mg PO TID anxiety 03/12/21 09/19/23 09/18/23 20:00 History cyclobenzaprine 10 mg tablet 10 mg PO TID 03/12/21 09/19/23 09/18/23 20:00 History duloxetine 60 mg capsule,delayed 60 mg PO DAILY 03/12/21 09/19/23 09/18/23 20:00 History release insulin degludec 200 unit/mL (3 44 unit subcut DAILY 03/12/21 09/19/23 09/18/23 20:00 History mL) subcutaneous pen (Tresiba FlexTouch U-200 insulin) lisinopril 2.5 mg tablet 2.5 mg PO DAILY 03/12/21 09/19/23 09/18/23 20:00 History metformin 500 mg tablet,extended 1,000 mg PO BID 03/12/21 09/19/23 09/18/23 20:00 History release 24 hr pantoprazole 40 mg tablet,delayed 40 mg PO DAILY 03/12/21 09/19/23 09/18/23 20:00 History release prazosin 2 mg capsule 2 mg PO BEDTIME 03/12/21 09/19/23 09/18/23 20:00 History budesonide-formoterol HFA 80 2 puff inhalation BID dyspnea 09/19/23 09/19/23 09/18/23 20:00 History mcg-4.5 mcg/actuation aerosol inhaler (Symbicort) dulaglutide 3 mg/0.5 mL 1.5 mg subcut TH 09/19/23 09/19/23 09/18/23 History subcutaneous pen injector (Trulicity) furosemide 40 mg tablet 40 mg PO DAILY 09/19/23 09/19/23 09/18/23 20:00 History pregabalin 300 mg PO BID 09/19/23 09/19/23 09/18/23 09:00 History 300 mg propranolol 10 mg tablet 10 mg PO DAILY 09/19/23 09/19/23 09/18/23 20:00 History rosuvastatin 40 mg tablet 40 mg PO BEDTIME 09/19/23 09/19/23 09/18/23 20:00 History Physical Exam Vital Signs: Last Vital Signs Temp 98.0 F 09/22/23 11:11 Pulse 85 09/22/23 11:11 Resp 17 09/22/23 11:11 BP 105/60 09/22/23 11:11 Pulse Ox 96 09/22/23 11:11 O2 Del Method Room Air 09/22/23 11:11 BMI result Body Mass Index 45.4 Const General: no acute distress Eyes EOM: EOMs intact bilaterally Resp Auscultation: diminished lung sounds Cardio Rate: regular rate GI Palpation (GI): Soft to palpation Neuro General: moves all extremities Results Lab Results 09/20/23 06:07 09/22/23 09:03 Lab results: Chemistry 09/19/23 09/19/23 09/20/23 11:58 17:22 01:15 Sodium 141 142 145 Potassium 2.5 L* 3.1 L D 2.9 L* Carbon Dioxide 30 H 29 27 BUN 6 L 6 L 6 L Creatinine 0.98 1.23 1.15 Calcium 8.6 9.2 D 9.2 Phosphorus 09/20/23 09/20/23 09/21/23 07:50 12:39 08:18 Sodium 148 H 145 141 Potassium 3.0 L 3.3 2.9 L* Carbon Dioxide 28 24 22 BUN 5 L 5 L 4 L Creatinine 1.09 1.25 1.31 Calcium 9.4 9.3 9.4 Phosphorus 1.7 L 09/22/23 09:03 Sodium 141 Potassium 2.9 L* Carbon Dioxide 24 BUN 4 L Creatinine 1.28 Calcium 8.9 Phosphorus Hematology 09/20/23 06:07 WBC 3.3 L Hgb 11.4 L Plt Count 68 L Urine Studies 09/19/23 00:11 Urine Creatinine 26.63 Assessment and Plan (1) Acute hypokalemia: Status: Acute Plan Hypokalemia likely due to GI losses Aldosterone ordered. Diuretics on hold Serum magnesium 1.9 No reason to suspect Bartter's or Gitelman syndrome No metabolically acidosis; no history of Tena syndrome Getting potassium replacement; may need spironolactone Shall closely follow-up along with hospitalist team Procedures Date of Service Date of Service: 09/22/23
--- NOTE | 2023-09-22 13:22 | P.PNIM_ITS ---
Subjective Subjective Date of Service: 09/22/23 Interval History: hypokalemia Review of Systems receving 100 meq poatssium q daily-still potassium low no new c/o vitals stable Physical Exam 2 Vital Signs: Vital Signs: Last Vital Signs Temp 98.0 F 09/22/23 11:11 Pulse 85 09/22/23 11:11 Resp 17 09/22/23 11:11 BP 105/60 09/22/23 11:11 Pulse Ox 96 09/22/23 11:11 O2 Del Method Room Air 09/22/23 11:11 BMI result Body Mass Index 45.4 Appearance: Alert.? Oriented X3.? cvs: rrr, [id number] . res: clear to auscultation ,no rhonchii or wheezing abd: no rebound or guarding ,nt, bs present. ext pulses present , no cyanosis . neuro: axo3 , nonfocal. Objective Data Active Medications Acetaminophen/Butalbital/Caffeine (Butalb/Acetamin/Caff 50/325/40 Tablet) 1 tab PO Q4H PRN PRN Reason: Pain, Mild (Pain Scale 1-3) Last Admin: 09/22/23 07:57 Dose: 1 tab Documented By: CYRIL Albuterol Sulfate (Albuterol Sulfate 90 Mcg 8 Gm Inhaler) 2 puff INHALE Q4H PRN PRN Reason: Wheezing Atorvastatin Calcium (Atorvastatin Calcium 80 Mg Tablet) 80 mg PO BEDTIME [facility] Last Admin: 09/21/23 21:01 Dose: 80 mg Documented By: MICHELLE Buspirone HCl (Buspirone Hcl 10 Mg Tablet) 10 mg PO TID [facility] Last Admin: 09/22/23 07:57 Dose: 10 mg Documented By: CYRIL Calcium Carbonate (Calcium Carbonate 750 Mg Tab.Chew) 750 mg PO Q4H PRN PRN Reason: Heartburn Cyclobenzaprine HCl (Cyclobenzaprine Hcl 10 Mg Tablet) 10 mg PO TID [facility] Last Admin: 09/22/23 07:57 Dose: 10 mg Documented By: CYRIL Duloxetine HCl (Duloxetine Hcl 60 Mg Capsule.) 60 mg PO DAILY [facility] Last Admin: 09/22/23 07:57 Dose: 60 mg Documented By: CYRIL Fluticasone/Vilanterol (Fluticasone/Vilanterol 100/25 Blst.W.Dev) 1 puff INHALE RDAILY [facility] Last Admin: 09/22/23 07:48 Dose: 1 puff Documented By: CHATO Glucose (Glucose Gel 15 Gm Gel..Gram.) 15 gm PO Q15M PRN; Protocol PRN Reason: per Hypoglycemia Standing Ord. Dextrose (D10) 250 mls @ 750 mls/hr IV Q15M PRN; Protocol PRN Reason: per Hypoglycemia Standing Ord. Insulin Glargine (Insulin Glargine,Hum.Rec.Anlog 100 Unit/Ml 10 Ml Vial) 22 unit SUBCUT DAILY [facility] Last Admin: 09/22/23 07:56 Dose: 22 unit Documented By: CYRIL Insulin Human Lispro (Insulin Lispro 100 Unit/Ml 3 Ml Vial) 0 unit SUBCUT QIDACHS [facility]; Protocol Last Admin: 09/22/23 11:35 Dose: 14 unit Documented By: CYRIL Magnesium Hydroxide (Milk Of Magnesia 30 Ml Oral.Susp) 30 ml PO DAILY PRN PRN Reason: Constipation Last Admin: 09/21/23 12:51 Dose: 30 ml Documented By: PAO Melatonin (Melatonin 3 Mg Tablet) 6 mg PO BEDTIME PRN PRN Reason: Insomnia Omeprazole (Omeprazole 20 Mg Capsule.Dr) 20 mg PO DAILY [facility] Last Admin: 09/22/23 07:56 Dose: 20 mg Documented By: CYRIL Potassium Chloride (Potassium Chloride Er 20 Meq Tab.Er.Prt) 60 meq PO DAILY [facility] Last Admin: 09/22/23 07:56 Dose: 60 meq Documented By: CYRIL Prazosin HCl (Prazosin Hcl 1 Mg Capsule) 2 mg PO BEDTIME [facility]; Protocol Last Admin: 09/21/23 21:01 Dose: 2 mg Documented By: MICHELLE Pregabalin (Pregabalin 150 Mg Capsule) 300 mg PO BID [facility] Last Admin: 09/22/23 07:57 Dose: 300 mg Documented By: CYRIL Propranolol HCl (Propranolol Hcl 10 Mg Tablet) 10 mg PO DAILY [facility]; Protocol Last Admin: 09/22/23 07:57 Dose: 10 mg Documented By: CYRIL Sodium Chloride (0.9 % Sodium Chloride Flush 3 Ml Syringe) 3 ml IVFLUSH QSHIFT [facility] Last Admin: 09/22/23 08:05 Dose: 3 ml Documented By: CYRIL Labs 09/20/23 06:07 09/22/23 09:03 Labs: Laboratory Results - last 24 hr 09/21/23 09/21/23 09/22/23 16:04 20:37 07:15 Anion Gap Estim Creat Clear Calc Estimated GFR POC Glucose 282 H 271 H 220 H Random Glucose Calcium 09/22/23 09/22/23 09:03 11:14 Anion Gap 10 L Estim Creat Clear Calc 76.0 Estimated GFR 45 POC Glucose 432 H* Random Glucose 408 H* Calcium 8.9 Assessment and Plan (1) Hypernatremia: Status: Acute (2) Acute hypokalemia: Status: Acute Plan 47-year-old female with history of moderate persistent asthma, migraines, hepatic cirrhosis, insulin-dependent type 2 diabetes, hyperlipidemia, hypertension, GERD, history of bacteremia secondary to infected left ureteral stone, and mood disorder admitted for severe refractory hypokalemia Severe refractory hypokalemia-multifactorial w/ associated anorexia,Gi losses and 10 lb unintentional weight loss suspected related to Trulicity received multiple poatssium repletion poatssium 2.9 acute hypernatremia -also due to gi loss/poor oral inatke and ns plan: monitor on tele got 100 meq postassium this mornin,added 20 meq more will check bmp eveenin hold lasix,given 1 dose of spirnolactone moniter electrolytes closely Nephrology following -hypokalemia unclear etiology hypotension /electrolytic abnormalities boderline cortisol levels cosyntropin test (d/w endocrinlogy dr kwong)-pending . CARON- resolved on admission -likely due to hypovolemia/hypoperfusion from poor po intake and gi losses improved. Acute abd pain: possible related to nausea/vomiting resolved Nausea/Vomiting/Diarrhea- possible viral gasterentritis vs marijuana related. seems improved with supportive case gi panel -pending and cdiff pcr neg acute on Chronic lactic acidosis -due to metformin use and hypovolemia/metformin/hyperglycemia related, Not severe sepsis -hold metformin, Trulicity, Invokana improving,no further lactic acid trending. Hypotension -due to hypoperfusion/hypovolemia, resolved on admission improved with hydration,continue iv albumin x4,patient asymptomatic. insulin-dependent type 2 diabetes with hyperglycemia adjusted lantus 32 units and Humalog on sliding scale, POC glucose, diabetic diet -monitor sugars closely hypophosphatemia -r/t above -neprhology consult hypertension -hold diuretics in setting of hypotension hepatic cirrhosis -compensated, hold diuretics in setting of hypotension diabetic polyneuropathy -continue Lyrica mood disorder -continue home medications chronic thrombocytopenia -due to cirrhosis DVT prophylaxis-scps due to thrombocytopenia activity oob Full code Patient requires inpatient stay ongoing for management of refractory severe hypokalemia requiring IV potassium, close cardiac monitoring, and expert consultation Quality Stroke Does the patient have a stroke diagnosis?: No VTE Prior VTE?: No VTE Risk Level:: Medical - moderate - high VTE Device Contraindication: Treatment Not Indicated VTE Drug Contraindication: N/A - Med Ordered
[2023-09-22] MEDS: Spironolactone 25 MG TABLET 12.5 MG PO (14:03)
[2023-09-22] MEDS: Potassium Chloride ER 20 MEQ TAB.ER.PRT PO (14:03)
[2023-09-22] MEDS: Insulin Glargine,Hum.rec.anlog 100 UNIT/ML 10 ML VIAL 10 UNIT SUBCUT (14:03)
[2023-09-22 16:11] LABS: Glucose, Whole Blood 224 mg/dL (60-115)
[2023-09-22 18:28] LABS: Cortisol 30 Minute 25.1 mcg/dL; Cortisol 30 Minute Time 1410; Cortisol 60 Minute 28.2 mcg/dL; Cortisol 60 Minute Time 3 1440; Cortisol Baseline 12.4 mcg/dL; Cortisol Baseline Time 1 1313
[2023-09-22] MEDS: Atorvastatin Calcium 80 MG TABLET PO (19:44)
[2023-09-22] MEDS: Prazosin HCL 1 MG CAPSULE 2 MG PO (19:45)
[2023-09-22 20:49] LABS: Glucose, Whole Blood 255 mg/dL (60-115)
[2023-09-23 03:05] VITALS: BP 115/60; PULSE 87; RESP 20; TEMP 36.8; O2SAT 94
[2023-09-23] MEDS: 0.9 % Sodium Chloride Flush 3 ML SYRINGE IVFLUSH ×2 (03:25→08:40)
[2023-09-23] MEDS: Butalb/Acetamin/Caff 50/325/40 TABLET 1 TAB PO (03:33)
[2023-09-23 06:37] LABS: Anion Gap 10 (12-20); Blood Urea Nitrogen 5 mg/dL (9-16); Calcium 8.9 mg/dL (8.4-10.2); Carbon Dioxide 23 mmol/L (22-29); Chloride 110 mmol/L (96-108); Creatinine Clr Calc Pharmacy 78.5; Estimated Glomerular Filt Rate 46; Glucose Random 349 mg/dL (60-115); Potassium 3.2 mmol/L (3.3-5.1); Sodium 140 mmol/L (135-145)
[2023-09-23] MEDS: Fluticasone/Vilanterol 100/25 BLST.W.DEV 1 PUFF INHALE (07:47)
[2023-09-23 07:49] VITALS: PULSE 91; RESP 18; O2SAT 96
[2023-09-23 07:56] VITALS: BP 91/55; PULSE 83; RESP 18; TEMP 36.5; O2SAT 95
[2023-09-23 07:57] LABS: Glucose, Whole Blood 310 mg/dL (60-115)
[2023-09-23] MEDS: Insulin Lispro 100 UNIT/ML 3 ML VIAL SUBCUT ×2 (08:35→11:43)
[2023-09-23 08:36] VITALS: BP 124/70; PULSE 83
[2023-09-23] MEDS: Propranolol HCL 10 MG TABLET PO (08:36)
[2023-09-23] MEDS: Insulin Glargine,Hum.rec.anlog 100 UNIT/ML 10 ML VIAL 32 UNIT SUBCUT (08:36)
[2023-09-23] MEDS: Cyclobenzaprine HCl 10 MG TABLET PO (08:39)
[2023-09-23] MEDS: DULoxetine HCl 60 MG CAPSULE.DR PO (08:39)
[2023-09-23] MEDS: Omeprazole 20 MG CAPSULE.DR PO (08:39)
[2023-09-23] MEDS: Potassium Chloride ER 20 MEQ TAB.ER.PRT 60 MEQ PO (08:39)
[2023-09-23] MEDS: busPIRone HCl 10 MG TABLET PO (08:40)
[2023-09-23] MEDS: Pregabalin 150 MG CAPSULE 300 MG PO (08:40)
[2023-09-23 11:22] LABS: Glucose, Whole Blood 273 mg/dL (60-115)
[2023-09-23 11:59] VITALS: BP 118/69; PULSE 75; RESP 18; TEMP 36.4; O2SAT 97
--- NOTE | 2023-09-23 12:52 | P.PNNP_ITS ---
Subjective Subjective Date of Service: 09/23/23 Interval history: Events noted. All recent data reviewed Physical Exam 2 Vital Signs: Vital Signs: Last Vital Signs Temp 97.5 F 09/23/23 11:59 Pulse 75 09/23/23 11:59 Resp 18 09/23/23 11:59 BP 118/69 09/23/23 11:59 Pulse Ox 97 09/23/23 11:59 O2 Del Method Room Air 09/23/23 11:59 BMI result Body Mass Index 45.4 Const: General: no acute distress Eyes: EOM: EOMs intact bilaterally Neck: Neck: Yes supple Resp: Auscultation: diminished lung sounds Cardio: Rate: regular rate GI: Palpation (GI): Soft to palpation Neuro: General: moves all extremities Objective Data Labs 09/20/23 06:07 09/23/23 05:53 Labs: Laboratory Results - last 24 hr 09/21/23 09/22/23 09/22/23 13:38 16:07 20:44 Sodium Potassium Chloride Carbon Dioxide Anion Gap BUN Creatinine Estim Creat Clear Calc Estimated GFR POC Glucose 224 H 255 H Random Glucose Calcium Cortisol Baseline 12.4 Cortisol 30 Minute 25.1 Cortisol 60 Minute 28.2 Cortisol Angelique Time 1 1313 Cortisol Angelique Time 2 1410 Cortisol Angelique Time 3 1440 ACTH Comment See Below 09/23/23 09/23/23 09/23/23 05:53 07:52 11:19 Sodium 140 Potassium 3.2 L Chloride 110 H Carbon Dioxide 23 Anion Gap 10 L BUN 5 L Creatinine 1.24 Estim Creat Clear Calc 78.5 Estimated GFR 46 POC Glucose 310 H 273 H Random Glucose 349 H Calcium 8.9 Cortisol Baseline Cortisol 30 Minute Cortisol 60 Minute Cortisol Angelique Time 1 Cortisol Angelique Time 2 Cortisol Angelique Time 3 ACTH Comment Microbiology Microbiology Results: Microbiology 09/18/23 22:56 Blood - Venous Blood Culture - Preliminary No growth after 48 hours. Procedures Date of Service Date of Service: 09/23/23 Assessment & Plan Assessment and plan (1) Acute hypokalemia: Status: Acute Plan Hypokalemia likely due to GI losses Aldosterone pending. Diuretics on hold Serum magnesium OK No reason to suspect Bartter's or Gitelman syndrome No metabolically acidosis; no history of Tena syndrome Got potassium replacement; C/W spironolactone 12.5 mg daily Shall closely follow-up along with hospitalist team Progress Note: Quality Stroke Does the patient have a stroke diagnosis?: No
--- NOTE | 2023-09-23 12:56 | MHC.CM.PN ---
Patient has been medically cleared for dc to home today, self care.
--- NOTE | 2023-09-23 13:01 | P.DS_ITS ---
DS: Providers Provider Date of Service: 09/23/23 Date of admission: 09/19/23 12:11 Date of discharge: 09/23/23 Primary care physician: JESS Sharpe Consults: 09/19/23 12:12 Consult to Gastroenterology Routine Consulting Provider: Janae Henderson Reason for consultation: anorexia, unintentional wt loss, severe electrolyte abn (?truclity related) 09/19/23 12:28 Consult to Nephrology Routine Consulting Provider: [facility] Reason for consultation: hypokelamia resistent to replacement- ?K wasting? DS: Diagnosis Discharge Diagnosis (1) Acute hypokalemia: Status: Acute DS: Summary Hospital Course Hospital Course: 47-year-old female with history of moderate persistent, migraines, hepatic cirrhosis, insulin-dependent type 2 diabetes, hyperlipidemia, hypertension, GERD, history of bacteremia secondary to infected left ureteral stone, and mood disorder presented to the ED late last night for evaluation of abdominal pain, nausea, vomiting, diarrhea and abnormal labs reported by PCP office. She states for the last 2 days she has had about 2 episodes of vomiting and diarrhea per day with associated abdominal pain. She is also reporting anorexia with about 10 lb of unintentional weight loss ongoing for 2 days. She is using Trulicity which was started about 4 months ago. She states that she has really not been eating much at all, maybe once daily and drinking limited fluids. Denies any recent increase in dose for the Trulicity. She does also smoke marijuana regularly throughout the day and smokes 4-5 cigarettes on a daily basis. No alcohol use or illicit drug use. She was told by her primary care provider that her potassium levels were low and glucose levels were high. On exam, reports abdominal pain and nausea has resolved. Has not had diarrhea or vomiting in the last several hours. Since arrival, has been initially hypotensive to 64/41 but 104/66 on admission following IV fluids. Vital signs are otherwise stable. Hematology studies are unremarkable except for thrombocytopenia of 83, which is chronic likely related to cirrhosis. Initially with elevated creatinine of 1.70, baseline around 1.1. Presented with potassium level of 2.2, only improved to 2.5 following 50 mEq IV potassium and 100 mEq of oral KCl. Initial glucose 448 improved to 255 with IV fluids. Initial lactic acid 5.1, repeat 6.0, repeat 4.0. Urinalysis unremarkable except for significant glucose but negative ketones. VBG with pH 7.56, pCO2 43, bicarb 39. CXR unremarkable. CT abdomen/pelvis negative for any acute intra-abdominal abnormality which shows cirrhotic liver with splenomegaly. In addition to potassium noted above, has also received 5 L NS, 2 L LR, and IV vancomycin. She was evaluated by ICU did not feel ICU admission was warranted. Hospital course Patient was admitted to telemetry and during her hospitalization her monitor failed to demonstrate any pathological rhythms. Her initial hypotensive episode responded very well to volume repletion. She received multiple doses of potassium and magnesium. On the day of discharge her potassium was the highest it was this admission at 3.2. She is adamantly stating she wants to be discharged. Discussed with Renal who has followed her (please see his note for details) she can be discharged on 60 mEq potassium and will have labs in [address] Gunn's office will call and set up an appointment for follow-up. She is instructed not to take her Lasix upon discharge Time Attestation Discharge Coordination Time (in mins): 35 Quality: Safe Use of Opioids Does Pt have an Active Cancer Diagnosis on the Problem List?: No Quality: Stroke Does the patient have a stroke diagnosis?: No Physical Exam Vital Signs: Vital Signs: Last Vital Signs Temp 97.5 F 09/23/23 11:59 Pulse 75 09/23/23 11:59 Resp 18 09/23/23 11:59 BP 118/69 09/23/23 11:59 Pulse Ox 97 09/23/23 11:59 O2 Del Method Room Air 09/23/23 11:59 BMI result Body Mass Index 45.4 Const: Other: Awake alert no acute distress Resp: Other: Clear to auscultation bilaterally no rales rhonchi or wheezes Cardio: Other: No S4; positive S1-S2; no S3 murmurs rubs or gallops GI: Other: Soft nontender nondistended normoactive bowel sounds Extrem: Other: No edema bilaterally DS: Data Data Completed and Pending Completed studies during hospitalization [Text1]: Procedures Dilation of Left Ureter with Intraluminal Device, Via Natural or Artificial Opening Endoscopic (03/12/21) Fluoroscopy of Left Kidney, Ureter and Bladder (03/12/21) Labs on day of discharge: Laboratory Results - last 24 hr 0809/22/23 09/22/23 13:38 16:07 20:44 Sodium Potassium Chloride Carbon Dioxide Anion Gap BUN Creatinine Estim Creat Clear Calc Estimated GFR POC Glucose 224 H 255 H Random Glucose Calcium Cortisol Baseline 12.4 Cortisol 30 Minute 25.1 Cortisol 60 Minute 28.2 Cortisol Angelique Time 1 1313 Cortisol Angelique Time 2 1410 Cortisol Angelique Time 3 1440 ACTH Comment See Below 09/23/23 09/23/23 09/23/23 05:53 07:52 11:19 Sodium 140 Potassium 3.2 L Chloride 110 H Carbon Dioxide 23 Anion Gap 10 L BUN 5 L Creatinine 1.24 Estim Creat Clear Calc 78.5 Estimated GFR 46 POC Glucose 310 H 273 H Random Glucose 349 H Calcium 8.9 Cortisol Baseline Cortisol 30 Minute Cortisol 60 Minute Cortisol Angelique Time 1 Cortisol Angelique Time 2 Cortisol Angelique Time 3 ACTH Comment Preliminary micro results at discharge 09/18/23 22:56 Blood Culture - Preliminary Blood - Venous No growth after 48 hours. Discharge Plan Discharge Anticipated Discharge Date/Time: 09/23/23 12:48 Patient Disposition: Home, Self-Care Discharge Diagnosis: Severe refractory hypokalemia,lona ,Nausea/Vomiting/Diarrhea Referrals: Angelique Bolaños, JESS [Primary Care Provider] - 1 Week Discharge Medications: New potassium chloride 20 mEq Tablet,Er Particles/Crystals 60 meq PO DAILY Qty: 90 0RF Continued cyclobenzaprine 10 mg tablet 10 mg PO TID pantoprazole 40 mg tablet,delayed release (DR/EC) 40 mg PO DAILY buspirone 10 mg tablet 10 mg PO TID albuterol sulfate [ProAir HFA] 90 mcg/actuation HFA aerosol inhaler 2 puff PO Q4-6H PRN (Reason: Wheezing) metformin 500 mg tablet extended release 24 hr 1,000 mg PO BID lisinopril 2.5 mg tablet 2.5 mg PO DAILY prazosin 2 mg capsule 2 mg PO BEDTIME duloxetine 60 mg capsule,delayed release(DR/EC) 60 mg PO DAILY insulin degludec [Tresiba FlexTouch U-200] 200 unit/mL (3 mL) insulin pen 44 unit subcut DAILY propranolol 10 mg tablet 10 mg PO DAILY rosuvastatin 40 mg tablet 40 mg PO BEDTIME budesonide-formoterol [Symbicort] 80-4.5 mcg/actuation HFA aerosol inhaler 2 puff INHALATION BID Trulicity 3 mg/0.5 mL pen injector 1.5 mg subcut TH pregabalin capsule 300 mg PO BID Discontinued furosemide 40 mg tablet 40 mg PO DAILY Discharge Orders: Discharge Order (Routine); Ordered 09/23/23 Ordered By: Irving Gonzalez Diet: Advance to usual diet Activity on Discharge: As tolerated Stand Alone Forms: Patient Portal Discharge page Print Language: Citizen Of [place] Other Ambulatory Orders: Comprehensive Met. Panel (Routine) Timeframe: 2 Days Facility: [facility] - Location: Laboratory Ordered By: Irving Gonzalez Care Plan Goals: Stop Lasix. Start taking potassium 60 mEq daily. Resume all other medications as taken prior to hospital Health Concerns: Get labs done 09/25/2023 Plan of Treatment: Follow up with Dr. Gunn, nephrology. His office will call with appointment Assessment: See discharge summary
[2023-09-24 07:29] LABS: Potassium 2.9 mmol/L (3.3-5.1)
[2023-09-24 10:32] LABS: Med (ACTH) Time 1315
[2023-10-14 12:12] LABS: Glucose, Whole Blood 432 mg/dL (60-115)
== END 2023-09-23 13:35 | disposition home or self-care (01) | DRG 422 ==
LOC: HO.ED 09-19 02:09 → HO.EDOVER 09-19 12:24 → HO.IMC 09-19 19:21
PROVIDERS: Internal Medicine; Internal Medicine Nephrology; Student in an Organized Health Care Education/Training Program; Admitting Provider Physician Assistant; Emergency Provider Emergency Medicine; PCP Registered Nurse; Visit Provider Hospitalist
DX: E87.6 Hypokalemia (principal); E86.1 Hypovolemia; N17.9 Acute kidney failure, unspecified; E87.22 Chronic metabolic acidosis; E11.42 Type 2 diabetes mellitus with diabetic polyneuropathy; D69.59 Other secondary thrombocytopenia; I95.9 Hypotension, unspecified; E83.39 Other disorders of phosphorus metabolism; E11.65 Type 2 diabetes mellitus with hyperglycemia; K74.60 Unspecified cirrhosis of liver; G43.909 Migraine, unspecified, not intractable, without status migrainosus; R11.2 Nausea with vomiting, unspecified; R19.7 Diarrhea, unspecified; J45.40 Moderate persistent asthma, uncomplicated; I10 Essential (primary) hypertension; F17.210 Nicotine dependence, cigarettes, uncomplicated; Z71.6 Tobacco abuse counseling; Z79.4 Long term (current) use of insulin; Z79.84 Long term (current) use of oral hypoglycemic drugs; Z79.899 Other long term (current) drug therapy
CPT/HCPCS: 36415; 71045; 74176; 80048; 80053; 81001; 82010; 82088; 82436; 82533; 82570; 82803; 82947; 83605; 83690; 83735; 84100; 84132; 84133; 84300; 84443; 84484; 84550; 85025; 85610; 86850; 86900; 86901; 87040; 87493; 93005; 94640; 94660; 99285; J0834; J3370; J3480; J7120; P9047

== ENCOUNTER → 2023-09-18 22:46 | Outpatient (BNV) | payer MEDICAID, SELFPAY | PROVIDERS: Emergency Provider Emergency Medicine; PCP Registered Nurse; Visit Provider Internal Medicine Cardiovascular Disease | DX: R94.31 Abnormal electrocardiogram [ECG] [EKG] (principal) | CPT/HCPCS: 93010 ==

== ENCOUNTER → 2023-09-19 12:11 | Outpatient (BNV) | payer MEDICAID, SELFPAY | PROVIDERS: Admitting Provider Physician Assistant; Emergency Provider Emergency Medicine; PCP Registered Nurse; Visit Provider Physician Assistant | DX: E87.6 Hypokalemia (principal); N17.9 Acute kidney failure, unspecified; R11.2 Nausea with vomiting, unspecified; R19.7 Diarrhea, unspecified | CPT/HCPCS: 99223; 99231; 99232; 99239 ==

== ENCOUNTER → 2023-09-19 12:11 | Outpatient (BNV) | payer MEDICAID, SELFPAY | PROVIDERS: Admitting Provider Physician Assistant; Emergency Provider Emergency Medicine; PCP Registered Nurse; Visit Provider Internal Medicine Gastroenterology | DX: E87.6 Hypokalemia (principal) | CPT/HCPCS: 99222 ==

== ENCOUNTER → 2023-09-19 12:11 | Outpatient (BNV) | payer MEDICAID, SELFPAY | PROVIDERS: Admitting Provider Physician Assistant; Emergency Provider Emergency Medicine; PCP Registered Nurse; Visit Provider Internal Medicine Nephrology | DX: E87.6 Hypokalemia (principal) | CPT/HCPCS: 99223; 99232 ==

== ENCOUNTER 2023-09-25 12:28 | Outpatient (REF) | payer MEDICAID, SELFPAY ==
[2023-09-25 15:08] LABS: Alanine Aminotransferase 40 U/L (0-31); Albumin Level 3.4 g/dL (3.5-5.0); Alkaline Phosphatase 215 U/L (39-117); Anion Gap 12 (12-20); Aspartate Amino Transferase 53 U/L (5-31); Blood Urea Nitrogen 7 mg/dL (9-16); Calcium 9.2 mg/dL (8.4-10.2); Carbon Dioxide 21 mmol/L (22-29); Chloride 110 mmol/L (96-108); Estimated Glomerular Filt Rate 49; Glucose Random 294 mg/dL (60-115); Sodium 139 mmol/L (135-145); Total Protein 6.6 g/dL (6.5-8.0)
== END 2023-09-25 12:29 | disposition home or self-care (01) ==
LOC: HO.LAB 12:28
PROVIDERS: PCP Registered Nurse; Visit Provider Hospitalist
DX: E87.6 Hypokalemia (principal)
CPT/HCPCS: 36415; 80053

== ENCOUNTER 2024-02-18 12:18 | Outpatient (REF) | payer MEDICAID, SELFPAY ==
[2024-02-18 13:39] LABS: Alanine Aminotransferase 44 U/L (0-31); Albumin Level 3.3 g/dL (3.5-5.0); Alkaline Phosphatase 262 U/L (39-117); Anion Gap 11 (12-20); Aspartate Amino Transferase 71 U/L (5-31); Blood Urea Nitrogen 5 mg/dL (9-16); Calcium 8.9 mg/dL (8.4-10.2); Carbon Dioxide 23 mmol/L (22-29); Chloride 108 mmol/L (96-108); Cholesterol 52 mg/dL (<200); Estimated Glomerular Filt Rate 48; Glucose Random 331 mg/dL (60-115); HDL Cholesterol 17 mg/dL (>40); LDL Cholesterol Calculated 13 mg/dL (<100); Magnesium 2.3 mg/dL (1.6-2.6); Potassium 3.1 mmol/L (3.3-5.1); Sodium 139 mmol/L (135-145); Total Protein 7.6 g/dL (6.5-8.0); Triglycerides 110 mg/dL (<150)
== END 2024-02-18 12:19 | disposition home or self-care (01) ==
LOC: HO.HHCL 12:18
PROVIDERS: Visit Provider Registered Nurse
DX: E11.65 Type 2 diabetes mellitus with hyperglycemia (principal); Z79.4 Long term (current) use of insulin; R30.0 Dysuria
CPT/HCPCS: 36415; 80053; 80061; 83735; 87086; 87088; 87186

== ENCOUNTER 2024-03-04 17:14 | Outpatient (REF) | payer MEDICAID, SELFPAY ==
[2024-03-04 20:16] LABS: Bacterial Vaginosis PCR NEGATIVE (Negative); Candida Group PCR NOT DETECTED (Not Detect); Candida glab krusei PCR DETECTED (Not Detect); Trichomonas vaginalis PCR NOT DETECTED (Not Detect)
[2024-03-05 15:44] LABS: CT PCR NOT DETECTED (Not Detect.); NG PCR NOT DETECTED (Not Detect.)
== END 2024-03-04 17:15 | disposition home or self-care (01) ==
LOC: HO.HHCLNP 17:14
PROVIDERS: Visit Provider Internal Medicine
DX: N76.0 Acute vaginitis (principal); Z11.3 Encounter for screening for infections with a predominantly sexual mode of transmission
CPT/HCPCS: 36415; 81515; 86695; 86696; 87255; 87491; 87591

== ENCOUNTER 2024-05-19 16:05 | Inpatient (IN) | payer MEDICAID, SELFPAY ==
[2024-05-19] VITALS (12 sets, daily range): BP systolic 102–134; BP diastolic 34–73; PULSE 64–94; RESP 16–20; TEMP 36.4–36.8; O2SAT 80–99; BMI 44.1
--- NOTE | ~2024-05-19 | CT_ITS ---
CLINICAL HISTORY: abd pain CT of the abdomen and pelvis utilizing intravenous contrast. Comparison 09/19/2023. Findings: There are changes of cirrhosis. Cholecystectomy. No hydronephrosis. There is mild left renal scarring. Severe splenomegaly. The pancreas is unremarkable. No abdominal aortic aneurysm. There are multiple small varices and collateral vessels. Multiple upper abdominal, retroperitoneal and mesenteric lymph nodes are most likely reactive. There is mild nonspecific mesenteric edema. No definite diverticulitis is identified. Normal appendix. There is mild colonic wall thickening more pronounced on the right. The bowel is incompletely rotated without obstruction. There is prominent diastasis recti. The bladder is nondilated. No significant ascites is seen. Impression: Changes of cirrhosis and portal hypertension. Mild colonic wall thickening could represent colitis. Additional findings as above. This document has been electronically signed by: Kimo Espinoza MD on 05/19/2024 18:59:46
--- NOTE | 2024-05-19 16:22 | ED_ITS ---
HPI - General Adult General Chief complaint: Urogenital-Female Stated complaint: health center, UTI - poss kidney infection Time Seen by Provider: 05/19/24 16:22 Source: patient and EMS Mode of arrival: EMS Limitations: no limitations History of Present Illness ED Provider: Latasha Pineda PA-C HPI narrative: 48 year old female with PMHx non-alcoholic liver cirrhosis, recurrent UTIs presenting to the ED c/o worsening bladder pressure, trouble urinating, foul smelling urine, diffuse abd pain, flank pain, N/V, CP, subjective fevers x 5 days. Pt seen at [facility] on 05/17/2024 for lower abd and left flank pain and diagnosed with UTI, however, left without completing treatment and did not have any antibiotics prescribed. Pt presented to the [facility] today for worsening of symptoms/possible kidney infection/inability to tolerate PO at home and was sent here. Denies cough, SOB, hematuria, hx kidney stones. Onset (ago): day(s) (2) Location: abdomen Radiation: back and flank Quality: aching and sharp Pain Consistency: constant Relieving factors: none Exacerbating factors: none Associated symptoms: fever/chills and nausea/vomiting Treatments prior to arrival: NSAID Related Data Home Medications ?Medication ?Instructions ?Recorded ?Confirmed albuterol sulfate 90 mcg/actuation 2 puff PO Q4-6H PRN Wheezing 03/12/21 09/19/23 aerosol inhaler (ProAir HFA) buspirone 10 mg tablet 10 mg PO TID anxiety 03/12/21 09/19/23 cyclobenzaprine 10 mg tablet 10 mg PO TID 03/12/21 09/19/23 duloxetine 60 mg capsule,delayed 60 mg PO DAILY 03/12/21 09/19/23 release insulin degludec 200 unit/mL (3 44 unit subcut DAILY 03/12/21 09/19/23 mL) subcutaneous pen (Tresiba FlexTouch U-200 insulin) lisinopril 2.5 mg tablet 2.5 mg PO DAILY 03/12/21 09/19/23 metformin 500 mg tablet,extended 1,000 mg PO BID 03/12/21 09/19/23 release 24 hr pantoprazole 40 mg tablet,delayed 40 mg PO DAILY 03/12/21 09/19/23 release prazosin 2 mg capsule 2 mg PO BEDTIME 03/12/21 09/19/23 budesonide-formoterol HFA 80 2 puff inhalation BID dyspnea 09/19/23 09/19/23 mcg-4.5 mcg/actuation aerosol inhaler (Symbicort) dulaglutide 3 mg/0.5 mL 1.5 mg subcut TH 09/19/23 09/19/23 subcutaneous pen injector (Trulicity) pregabalin 300 mg PO BID 09/19/23 09/19/23 propranolol 10 mg tablet 10 mg PO DAILY 09/19/23 09/19/23 rosuvastatin 40 mg tablet 40 mg PO BEDTIME 09/19/23 09/19/23 Previous Rx's ?Medication ?Instructions ?Recorded potassium chloride 20 mEq 60 meq (3 x 20 mEq) PO DAILY #90 09/23/23 tablet,extended release(part/cryst) tabs Allergies Allergy/AdvReac Type Severity Reaction Status Date / Time acetaminophen [From TYLENOL] Allergy Unknown LIVER Verified 05/19/24 16:13 SWELLING Review of Systems 2 Constitutional: Constitutional: Reports no additional constitutional complaints, Reports chills, Reports fever(s) and Reports headache(s) Eyes: Eyes: Reports no additional eye complaints, Denies blurry vision, Denies change in vision, Denies diplopia, Denies eye discharge, Denies loss of vision and Denies eye pain ENT: Denies dizziness and Reports headache(s) Cardiovascular: Cardiovascular: Reports no additional cardiovascular complaints, Reports chest pain, Denies syncope, Denies lightheadedness, Denies Loss of Consciousness and Denies dyspnea Respiratory: Respiratory: Reports no additional respiratory complaints and Denies dyspnea Gastrointestinal: Gastrointestinal: Reports no additional gastrointestinal complaints, Reports abdominal pain, Denies melena, Denies hematochezia, Denies change in bowel habits, Denies change in stool character, Denies diarrhea, Reports nausea and Reports vomiting Genitourinary: Genitourinary: Denies hematuria, Reports difficulty voiding, Denies genital pruritis, Denies genital lesions, Denies dysuria, Reports flank pain and Reports urinary urgency Comments: Reports bladder pressure. Musculoskeletal: Musculoskeletal: Reports no additional musculoskeletal complaints, Denies numbness and Denies tingling Neurologic: Denies dizziness, Denies syncope, Reports headache(s), Denies loss of vision, Denies numbness and Denies tingling Psychiatric: Psychiatric: Reports no additional psychiatric complaints Endocrine: Endocrine: Reports no additional endocrine complaints Hematologic/Lymphatic: Hematologic/Lymphatic: Reports no additional hematologic/lymphatic complaints Allergic/Immunologic: Allergic/Immunologic: Reports no additional allergic/immunologic complaints [facility] Past Medical History Attestation statement: The following information was validated with the patient. Source: old records reviewed and nursing notes reviewed Medical History Chronic abdominal pain PTSD (post-traumatic stress disorder) Cirrhosis Cholecystectomy planned delivery delivered Migraine Asthma Diabetes Spleen enlarged Enlarged liver Hernia Surgical History Status post anal fissurectomy Family History Family History Mother Diabetes Anxiety Depressed Arthritis Migraine Social History Social History Household Members: Spouse and Children Household Members Other:: she has 6 children and 12 grandchildren- [address] on the [address] Housing: House Do you presently have visiting nurse or other home services: No Alcohol intake: former Comment: back Patient Tobacco Use Status: Current everyday Tobacco user Tobacco use type: Cigarette Cigarette Packs Per Day: 0.5 Cigarettes Per Day: 10.0 Years Smoked: 30 Smoked in Last 30 Days: Yes e-Cigarette/Vaping Use: Never Used Use of substances other than those prescribed or required for medical reasons: Yes Substance Use Type: Marijuana Advance Directives: No Advance Directives Information Provided: No Patient : No service: No Current occupational status: unemployed Physical Exam ED Vital Signs: Vital Signs - 24 hr 05/19/24 16:11 05/19/24 16:39 05/19/24 18:24 Temperature 97.8 F Pulse Rate 80 Respiratory Rate 20 20 20 Blood Pressure 108/57 L Pulse Oximetry 99 Oxygen Delivery Method Room Air 05/19/24 19:03 05/19/24 19:15 05/19/24 19:48 Temperature 97.6 F Pulse Rate 94 66 Respiratory Rate 16 Blood Pressure 117/60 111/34 L Pulse Oximetry 80 L 96 Oxygen Delivery Method Room Air Room Air 05/19/24 20:02 05/19/24 20:28 05/19/24 22:20 Temperature Pulse Rate 64 Respiratory Rate 18 17 20 Blood Pressure 102/49 L 111/64 Pulse Oximetry 96 95 Oxygen Delivery Method Room Air Room Air 05/19/24 23:29 05/19/24 23:42 Temperature 98.3 F Pulse Rate 68 67 Respiratory Rate 16 16 Blood Pressure 104/57 L 127/73 Pulse Oximetry 96 98 Oxygen Delivery Method Room Air Room Air BMI result Body Mass Index 44.1 Const General: cooperative, alert, awake and ill appearing Nutritional Appearance: well nourished Orientation/consciousness: patient oriented x3 Limitations: no limitations HENMT Head: Yes normal to inspection and Yes atraumatic Ears: hearing grossly normal bilaterally and external ears normal General nose exam: Normal external nose present, no nasal discharge noted and no epistaxis Face and sinus: Yes normal facial exam, No abrasion and No laceration Mouth: Normal oral and palatal mucosa present, no drooling and no muffled voice Eyes General: appearance normal, both eyes and all related structures Periorbital: periorbital findings normal Eyelids: Yes eyelids normal Conjunctivae: conjunctivae normal Pupils: Equal, round and reactive pupils present EOM: EOMs intact bilaterally Neck Neck: Yes normal visual inspection, Yes full ROM and Yes no lymphadenopathy Chest Chest palpation & inspection: normal inspection of the chest Resp Effort & Inspection: normal respiratory effort and able to speak in complete sentences Cardio Rate: regular rate Rhythm: regular rhythm GI Inspection: Yes normal to inspection and No abdominal wall ecchymosis Palpation (GI): Soft to palpation, not firm, Tenderness to palpation present (GI) in the epigastrum, in the RLQ and in the RUQ and not rigid Other: + b/l CVA tenderness, flank pain. General: Yes CVA tenderness bilateral Back/Spine/Pelvis Back: CVA tenderness, No erythema, No warmth and No ecchymosis Neuro General: patient oriented x3, moves all extremities and CN's II-XI intact bilaterally Cranial nerves: Yes Equal, round and reactive pupils present Cognition (Neuro): normal cognition Extrem General: Yes normal to inspection, Yes full ROM and Yes capillary refill normal Psych Appearance: grossly normal Mental Status: mental status grossly normal Affect: normal affect Attitude: cooperative Thought process: Normal thought process present Thought content: Normal thought content present Insight: Good insight present (Psych) Course Reevaluation(s) Reevaluation #1: Carina Vitale NP 05/19/2024 21:49 - patient is not experiencing symptoms consistent with colitis, I suspect that her splenomegaly secondary to her longstanding liver cirrhosis. On evaluation of her serum labs, she has no leukocytosis, WBCs > 4000, chronic thrombocytopenia likely secondary to underlying liver disease. She has had an elevated lactate, which is well may be secondary to her liver disease, she has been afebrile. Given presence of urinary tract infection, may potentially be secondary to sepsis, did have some softer blood pressures after receiving multiple doses of opioid analgesics, patient has received an additional 1 L LR IV fluids will monitor blood pressure closely for signs of hypertension. However overall do not feel this clinical picture favors sepsis. Pain is primarily in her upper abdomen though she endorses it to be diffusely throughout. At this point her pain is intractable, do not feel that she would be appropriate for discharge home and plan to admit to medicine service, I have spoke with hospitalist Dr. Hart. She is quite tearful appearing very anxious, feel that she would benefit from a dose of lorazepam. CT of the abdomen and pelvis utilizing intravenous contrast. Comparison 09/19/2023. Findings: There are changes of cirrhosis. Cholecystectomy. No hydronephrosis. There is mild left renal scarring. Severe splenomegaly. The pancreas is unremarkable. No abdominal aortic aneurysm. There are multiple small varices and collateral vessels. Multiple upper abdominal, retroperitoneal and mesenteric lymph nodes are most likely reactive. There is mild nonspecific mesenteric edema. No definite diverticulitis is identified. Normal appendix. There is mild colonic wall thickening more pronounced on the right. The bowel is incompletely rotated without obstruction. There is prominent diastasis recti. The bladder is nondilated. No significant ascites is seen. Impression: Changes of cirrhosis and portal hypertension. Mild colonic wall thickening could represent colitis. Additional findings as above. Time: 21:49 Medications Administered Generic Name Dose Route Start Last Admin Trade Name Freq PRN Reason Stop Dose Admin Lactated Ringer's 1,000 mls @ 75 mls/hr 05/19/24 23:00 05/19/24 23:41 Lr IVCONT 75 mls/hr .[id number] MARYJO Administration Sodium Chloride 3 ml 05/20/24 00:00 05/19/24 23:42 0.9 % Sodium Chloride Flush 3 Ml Syringe IVFLUSH Not Given QSHIFT MARYJO Discontinued Medications Generic Name Dose Route Start Last Admin Trade Name Federica PRN Reason Stop Dose Admin Ceftriaxone Sodium 1 gm 05/19/24 16:37 05/19/24 16:59 Ceftriaxone Sodium 1 Gm Vial IVPUSH 05/19/24 16:38 1 gm ONCE ONE Administration Hydromorphone HCl 1 mg 05/19/24 18:14 05/19/24 18:24 Hydromorphone Hcl 1 Mg/Ml Syringe IVPUSH 05/19/24 18:15 1 mg ONCE ONE Administration Protocol Hydromorphone HCl 1 mg 05/19/24 19:48 05/19/24 19:58 Hydromorphone Hcl 1 Mg/Ml Syringe IVPUSH 05/19/24 19:49 1 mg ONCE ONE Administration Protocol Lactated Ringer's 1,000 mls @ 999 mls/hr 05/19/24 17:15 05/19/24 19:39 Lr IV 05/19/24 18:15 Infused .[id number] MARYJO Infusion Lactated Ringer's 1,000 mls @ 999 mls/hr 05/19/24 21:15 05/19/24 23:28 Lr IV 05/19/24 22:15 Infused .Q1H1M MARYJO Infusion Iohexol 100 ml 05/19/24 17:49 05/19/24 17:51 Iohexol 350 Mg/Ml 100 Ml Infus..Btl IV 05/19/24 17:50 100 ml ONCE ONE Administration Lorazepam 1 mg 05/19/24 22:07 05/19/24 22:17 Lorazepam 2 Mg/Ml Vial IVPUSH 05/19/24 22:08 1 mg ONCE ONE Administration Morphine Sulfate 4 mg 05/19/24 16:23 05/19/24 16:39 Morphine Sulfate 4 Mg/Ml Cartridge IVPUSH 05/19/24 16:24 4 mg ONCE ONE Administration Protocol Ondansetron HCl 4 mg 05/19/24 16:23 05/19/24 16:39 Ondansetron Hcl 4 Mg/2 Ml Vial IVPUSH 05/19/24 16:24 4 mg ONCE ONE Administration Medical Decision Making Medical Decision Making MDM Narrative: Patient is a 48 year old assigned female at with a history of PTSD, intractable abdominal pain, anemia, and kidney stones presenting to the emergency department today with abdominal pain and urinary complaints. Patient's physical exam was as noted in the physical exam portion of this note. Patient's blood work showed a chronic low platelet count of 63, total bili 1.3. AST 47, alk phos 261, and liapse 193. Patient's urine is pending. Patient's CT abd/pelvis showed colitis but otherwise unremarkable. I explained my physical exam findings as well as all test results to the patient. I answered all questions asked by the patient. Patient received IV Moprhine, Zofran, fluids, and Dilaudid which, upon re-evaluation, she stated it helped her symptoms some. Patient signed out to [employer] Carina pending UA, repeat lactic, and re-evaluation. Differential Diagnosis Differential Diagnoses: The differential diagnosis associated with the presentation includes UTI Pyelonephritis Abdominal pain Appendicitis Admission/Observation Consideration of admission/observation: Escalation of care including admission/observation considered Disposition will be determined after UA, repeat lactic, and re-evaulation. Lab Data [facility] Lab Attestation statement: I reviewed the patient's lab results. My interpretation of these results are in the MDM Rationale portion of this note. 05/19/24 16:34 05/19/24 16:34 Labs: Lab Results 05/19/24 05/19/24 05/19/24 Range/Units 16:34 16:35 19:41 WBC 4.4 L (4.8-10.8) X10*3/uL RBC 4.40 D (4.20-5.50) X10*6/uL Hgb 13.5 (12.0-16.0) g/dl Hct 39.4 D (37.0-47.0) % MCV 89.5 (80.0-98.0) fL MCH 30.7 (27.0-33.0) pg MCHC 34.3 (31.0-35.0) g/dl RDW 15.9 (11.0-16.0) % Plt Count 63 L (160-400) X10*3/uL MPV 11.7 (9.4-12.3) fL Immature Gran % (Auto) 0.2 (0.0-0.4) % Neut % (Auto) 60.7 (45-73) % Lymph % (Auto) 32.6 (20-40) % [place] % (Auto) 5.1 (2-11) % Eos % (Auto) 0.9 (0-4) % Baso % (Auto) 0.5 (0-2) % Lymph # (Auto) 1.4 (1.2-4.9) X10*3/uL [place] # (Auto) 0.2 (0.1-1.2) X10*3/uL Eos # (Auto) 0.0 (0.0-0.4) X10*3/uL Baso # (Auto) 0.0 (0.0-0.2) X10*3/uL Abs Immat Gran (auto) 0.01 (0.00-0.03) X10*3/uL Absolute Neuts (auto) 2.6 (2.0-8.3) x10*3/uL Absolute Nucleated RBC 0.000 (0.0-0.012) X10*3/uL Nucleated RBC % (auto) 0.0 (0.0-0.2) /100WBC Smear Tech's Comments VERIFIED Sodium 139 (135-145) mmol/L Potassium 3.8 D (3.3-5.1) mmol/L Chloride 110 H (96-108) mmol/L Carbon Dioxide 22 (22-29) mmol/L Anion Gap 11 L (12-20) BUN 11 (9-16) mg/dL Creatinine 1.00 (0.5-1.4) mg/dL Estim Creat Clear Calc 91.5 Estimated GFR 59 Random Glucose 118 H (60-115) mg/dL Lactic Acid 3.4 H* (0.5-2.0) mmol/L Lactic Acid F/U @ 2Hr (0.5-2.0) mmol/L Lactic Acid F/U @ 4Hr (0.5-2.0) mmol/L Calcium 9.6 D (8.4-10.2) mg/dL Magnesium 2.1 (1.6-2.6) mg/dL Total Bilirubin 1.3 H (0.0-1.0) mg/dL Direct Bilirubin 0.4 (0.0-0.5) mg/dL AST 47 H (5-31) U/L ALT 24 (0-31) U/L Alkaline Phosphatase 261 H (39-117) U/L Troponin I High Sens < 2.7 D (<3.5-17.0) ng/L C-Reactive Protein 2.84 H (< or = 0.50) mg/dL Total Protein 8.1 H (6.5-8.0) g/dL Albumin 3.4 L (3.5-5.0) g/dL Lipase 193 H (8-78) U/L Beta-Hydroxybutyrate 0.15 (0.02-0.27) mmol/L Urine Color Yellow Urine Appearance Clear Urine pH 7.0 (5.0-9.0) Ur Specific [place] >= 1.030 H (1.005-1.025) Urine Protein 100 (2+) H (Neg-Trace) mg/dL Urine Glucose (UA) Negative (Negative) mg/dL Urine Ketones Negative (Negative) mg/dL Urine Blood Large (3+) H (Negative) Urine Nitrite Positive H (Negative) Ur Leukocyte Esterase Moderate (2+) H (Negative) Urine RBC >20 H (0-2) /HPF Urine WBC >50 H (0-5) /HPF Ur Squamous Epith Cells 0-2 (0-2) /HPF Urine Bacteria 1+ (None Seen) Hyaline Casts 0-2 (0-2) /LPF Influenza Type A (PCR) NEGATIVE (Negative) Influenza Type B (PCR) NEGATIVE (Negative) RSV RNA Qual (PCR) NEGATIVE (Negative) SARS-CoV-2 RNA (RT-PCR) NEGATIVE (Negative) 05/19/24 05/19/24 Range/Units 19:47 23:03 WBC (4.8-10.8) X10*3/uL RBC (4.20-5.50) X10*6/uL Hgb (12.0-16.0) g/dl Hct (37.0-47.0) % MCV (80.0-98.0) fL MCH (27.0-33.0) pg MCHC (31.0-35.0) g/dl RDW (11.0-16.0) % Plt Count (160-400) X10*3/uL MPV (9.4-12.3) fL Immature Gran % (Auto) (0.0-0.4) % Neut % (Auto) (45-73) % Lymph % (Auto) (20-40) % [place] % (Auto) (2-11) % Eos % (Auto) (0-4) % Baso % (Auto) (0-2) % Lymph # (Auto) (1.2-4.9) X10*3/uL [place] # (Auto) (0.1-1.2) X10*3/uL Eos # (Auto) (0.0-0.4) X10*3/uL Baso # (Auto) (0.0-0.2) X10*3/uL Abs Immat Gran (auto) (0.00-0.03) X10*3/uL Absolute Neuts (auto) (2.0-8.3) x10*3/uL Absolute Nucleated RBC (0.0-0.012) X10*3/uL Nucleated RBC % (auto) (0.0-0.2) /100WBC Smear Tech's Comments Sodium (135-145) mmol/L Potassium (3.3-5.1) mmol/L Chloride (96-108) mmol/L Carbon Dioxide (22-29) mmol/L Anion Gap (12-20) BUN (9-16) mg/dL Creatinine (0.5-1.4) mg/dL Estim Creat Clear Calc Estimated GFR Random Glucose (60-115) mg/dL Lactic Acid (0.5-2.0) mmol/L Lactic Acid F/U @ 2Hr 3.2 H* (0.5-2.0) mmol/L Lactic Acid F/U @ 4Hr 2.8 H* (0.5-2.0) mmol/L Calcium (8.4-10.2) mg/dL Magnesium (1.6-2.6) mg/dL Total Bilirubin (0.0-1.0) mg/dL Direct Bilirubin (0.0-0.5) mg/dL AST (5-31) U/L ALT (0-31) U/L Alkaline Phosphatase (39-117) U/L Troponin I High Sens (<3.5-17.0) ng/L C-Reactive Protein (< or = 0.50) mg/dL Total Protein (6.5-8.0) g/dL Albumin (3.5-5.0) g/dL Lipase (8-78) U/L Beta-Hydroxybutyrate (0.02-0.27) mmol/L Urine Color Urine Appearance Urine pH (5.0-9.0) Ur Specific [place] (1.005-1.025) Urine Protein (Neg-Trace) mg/dL Urine Glucose (UA) (Negative) mg/dL Urine Ketones (Negative) mg/dL Urine Blood (Negative) Urine Nitrite (Negative) Ur Leukocyte Esterase (Negative) Urine RBC (0-2) /HPF Urine WBC (0-5) /HPF Ur Squamous Epith Cells (0-2) /HPF Urine Bacteria (None Seen) Hyaline Casts (0-2) /LPF Influenza Type A (PCR) (Negative) Influenza Type B (PCR) (Negative) RSV RNA Qual (PCR) (Negative) SARS-CoV-2 RNA (RT-PCR) (Negative) Independent Interpretation I performed an independent interpretation of an: CT Scan Interpretation: My interpretation is in agreement with the radiologist's impression of this imaging study. L Report Number: [id number]: Total DLP = 1224.00 mGy-cm CLINICAL HISTORY: abd pain CT of the abdomen and pelvis utilizing intravenous contrast. Comparison 09/19/2023. Findings: There are changes of cirrhosis. Cholecystectomy. No hydronephrosis. There is mild left renal scarring. Severe splenomegaly. The pancreas is unremarkable. No abdominal aortic aneurysm. There are multiple small varices and collateral vessels. Multiple upper abdominal, retroperitoneal and mesenteric lymph nodes are most likely reactive. There is mild nonspecific mesenteric edema. No definite diverticulitis is identified. Normal appendix. There is mild colonic wall thickening more pronounced on the right. The bowel is incompletely rotated without obstruction. There is prominent diastasis recti. The bladder is nondilated. No significant ascites is seen. Impression: Changes of cirrhosis and portal hypertension. Mild colonic wall thickening could represent colitis. Additional findings as above. This document has been electronically signed by: Kimo Espinoza MD on 05/19/2024 18:59:46 Dictated By: German Eason MD Signed By: Electronically signed by German Eason MD 05/19/24 1900 Radiology Impression Discussion of test interpretation with radiology: I have reviewed the radiologist's reading. Independent Historian Clinical information obtained from an independent historian. History obtained from or confirmed by: EMS (EMS provided additional history and confirmed the history provided by the patient. ) Critical Care Time Critical Care Time Critical Care Time: Yes Total Critical Care Time: 44 Attestation: I spent 44 minutes of Critical Care Time with this patient. This does not include time spent on separately reported billable procedures. Discharge Plan Discharge Clinical Impression: Abdominal pain, Acidosis, lactic Patient Disposition: Admitted As Inpatient Prescriptions: No Action cyclobenzaprine 10 mg tablet 10 mg PO TID pantoprazole 40 mg tablet,delayed release (DR/EC) 40 mg PO DAILY buspirone 10 mg tablet 10 mg PO TID albuterol sulfate [ProAir HFA] 90 mcg/actuation HFA aerosol inhaler 2 puff PO Q4-6H PRN (Reason: Wheezing) metformin 500 mg tablet extended release 24 hr 1,000 mg PO BID lisinopril 2.5 mg tablet 2.5 mg PO DAILY prazosin 2 mg capsule 2 mg PO BEDTIME duloxetine 60 mg capsule,delayed release(DR/EC) 60 mg PO DAILY insulin degludec [Tresiba FlexTouch U-200] 200 unit/mL (3 mL) insulin pen 44 unit subcut DAILY propranolol 10 mg tablet 10 mg PO DAILY rosuvastatin 40 mg tablet 40 mg PO BEDTIME budesonide-formoterol [Symbicort] 80-4.5 mcg/actuation HFA aerosol inhaler 2 puff INHALATION BID Trulicity 3 mg/0.5 mL pen injector 1.5 mg subcut TH pregabalin capsule 300 mg PO BID potassium chloride 20 mEq Tablet,Er Particles/Crystals 60 meq PO DAILY Qty: 90 0RF Print Language: Greenlandic
--- NOTE | 2024-05-19 16:23 | ECG_ITS ---
Test Reason : ABDOMINAL PAIN Blood Pressure : */* mmHG Vent. Rate : 67 BPM Atrial Rate : 67 BPM P-R Int : 156 ms QRS Dur : 78 ms QT Int : 424 ms P-R-T Axes : 34 -10 -2 degrees QTcB Int : 448 ms Normal sinus rhythm Minimal voltage criteria for LVH, may be normal variant ( R in aVL ) Borderline ECG When compared with ECG of 18-Sep-2023 22:46, No significant change was found Referred By: Latasha Pineda Electronically Signed By: Sylvester Mesa
[2024-05-19] MEDS: ondansetron HCL 4 MG/2 ML VIAL IVPUSH (16:39)
[2024-05-19] MEDS: Morphine Sulfate 4 MG/ML CARTRIDGE IVPUSH (16:39)
[2024-05-19 16:46] LABS: Hematocrit 39.4 % (37.0-47.0); Hemoglobin 13.5 g/dl (12.0-16.0); Imm Gran Abs Auto 0.01 X10*3/uL (0.00-0.03); Imm Gran Pct Auto 0.2 % (0.0-0.4); MANUAL DIFF FLAG SCAN; Mean Corpuscular HGB Conc 34.3 g/dl (31.0-35.0); Mean Corpuscular Hemoglobin 30.7 pg (27.0-33.0); Mean Corpuscular Volume 89.5 fL (80.0-98.0); PLT CLUMP 1; Red Cell Distribution Width 15.9 % (11.0-16.0); SCAN SMEAR FLAG 1
[2024-05-19 16:47] LABS: Basophils Percent Auto 0.5 % (0-2); Eosinophils Percent Auto 0.9 % (0-4); Lymphocytes Absolute Auto 1.4 X10*3/uL (1.2-4.9); Lymphocytes Percent Auto 32.6 % (20-40); Mean Platelet Volume 11.7 fL (9.4-12.3); Monocytes Absolute Auto 0.2 X10*3/uL (0.1-1.2); Monocytes Percent Auto 5.1 % (2-11); Neutrophils Absolute Auto 2.6 x10*3/uL (2.0-8.3); Neutrophils Percent Auto 60.7 % (45-73)
[2024-05-19 16:56] LABS: White Blood Count 4.4 X10*3/uL (4.8-10.8)
[2024-05-19] MEDS: cefTRIAXone sodium 1 GM VIAL IVPUSH (16:59)
[2024-05-19 17:04] LABS: Lactic Acid 3.4 mmol/L (0.5-2.0)
[2024-05-19 17:18] LABS: Troponin-I High Sensitivity < 2.7 ng/L (<3.5-17.0)
[2024-05-19] MEDS: Lactated Ringers 1,000 ML 999 ML IV ×2 (17:18→21:31)
[2024-05-19 17:31] LABS: Influenza A PCR NEGATIVE (Negative); Influenza B PCR NEGATIVE (Negative); Resp Syncy Virus RNA Qual PCR NEGATIVE (Negative); SARS COV2 PCR INHOUSE NEGATIVE (Negative)
[2024-05-19 17:40] LABS: Alanine Aminotransferase 24 U/L (0-31); Albumin Level 3.4 g/dL (3.5-5.0); Alkaline Phosphatase 261 U/L (39-117); Anion Gap 11 (12-20); Aspartate Amino Transferase 47 U/L (5-31); Bilirubin Total 1.3 mg/dL (0.0-1.0); Blood Urea Nitrogen 11 mg/dL (9-16); Calcium 9.6 mg/dL (8.4-10.2); Carbon Dioxide 22 mmol/L (22-29); Chloride 110 mmol/L (96-108); Creatinine Clr Calc Pharmacy 91.5; Estimated Glomerular Filt Rate 59; Glucose Random 118 mg/dL (60-115); Magnesium 2.1 mg/dL (1.6-2.6); Potassium 3.8 mmol/L (3.3-5.1); Sodium 139 mmol/L (135-145); Total Protein 8.1 g/dL (6.5-8.0)
[2024-05-19 17:41] LABS: Beta-Hydroxybutyrate 0.15 mmol/L (0.02-0.27)
[2024-05-19 17:44] LABS: Platelet Count 63 X10*3/uL (160-400); SLIDE REVIEW VERIFIED
[2024-05-19] MEDS: iohexoL 350 MG/ML 100 ML INFUS..BTL IV (17:51)
--- OUTSIDE RECORDS SUMMARY | 2024-05-19 17:53 | XMS_ITS | Encounter Summary ---
Author Organization [employer] Address [address] [place] [address] 7t [place] [address] Care Team Providers Care Director Of Special Services Name Role Phone [facility] Primary Care Provider [phone] Vera Mcgovern PharmD Unavailable [phone] Reason for Visit * Reason Onset Date Comments PT1 03/04/2024 Encounter Details Date Type Department Care Team (Late st Contact Info) Description 03/04/2024 Telephone [facility] [address] [place] [address] [facility] 230 [place] [address] PT1 Social History Tobacco Use Types Packs/Day Years Used Date Smoking Tobacco: Every Day Cigarettes Smokeless Tobacco: Never Alcohol Use Standard Drinks/Week Comments Never 0 (1 standard drink = 0.6 oz pur e alcohol) Alcohol Answer Date Recorded Frequency of Alcohol Consumption Not on file 05/02/2023 Average Number of Drinks Not on file 024 Frequency of Binge Drinking Not on file 04/11 Score 0 05/02/2023 Depression Answer Date Recorded Patient Health Questionnaire-9 Score 0 02/18/2024 Patient Health Questionnaire-9 Score 0 02/18/2024 Last PHQ-9: Questionnaire Data Not on file 0 02/18/2024 Housing Stability Answer Date Recorded What is your housing situation today? I have sola russ 11/25/[address] you li ve. Do you have problems with any of the following? None of the above 11/25/2022 Food Insecurity Answer Date Recorded Within the past 12 months, y ou worried that your food would run out before you got money to buy more: Never True 11/25/2022 Within the past 12 months,th e food you bought just didn't last and you didn't have enough money to get more: Never True Transportation Answer Date Recorded In the past 12 months, has l ack of transportation kept you from medical appts, meetings, work or from getting things needed for daily living? No 11/25/2022 Utilities Answer Date Recorded In the past 12 months, has t he electric, gas, oil or water company threatened to shut off services in your home? No 11/25/2022 Depression Answer Date Recorded Patient Health Questionnaire-2 Score 0 02/18/2024 Comments Unknown Sex and Gender Information Value Date Recorded Sex Assigned at Female 12/10/2021 10:15 AM EDT Legal Sex Female 10:15 AM EDT Gender Identity Female 12/10/2021 10:15 AM EDT Sexual Orientation Straight 12/10/2021 10 :15 AM EDT documented as of this encounter Miscellaneous Notes * Telephone Encounter - Miriam Alonso - 03/04/2024 9:23 AM EST Patient daughter calling requesting PT1 Home Address verified: Y/N: Yes Provider name or facility name: [address] [address] Escort needed: Y/N: Yes Do you have a wheelchair: Y/N: No If yes- Manual or electric: N/A Visits: (3 x monthly) documented in this encounter Plan of Treatment Upcoming Encounters Date Type Department Care Team (Late st Contact Info) Description 05/24/2024 1:00 PM EDT Medication Management [facility] [address] [place] [address] Sophie Zapata, Maddy 230 [place] [address] 06/24/2024 3:30 PM EDT Office Visit [facility] [address] [place] [address] Anaid Núñez OD 230 [place] [address] documented as of this encounter Goals Goal Patient Goal Type Associated Problems Recent Progress Patient-Stated? Author Hemoglobin A1c < 7 Result Component 12.1(02/17/19 11:43 AM EST) No Vera Bean PharmJuan Record your blood sugar as directed Result Component No Vera Bean PharmD documented as of this encounter Visit Diagnoses Not on filedocumented in this encounter Additional Health Concerns Assessment Noted Time PHQ-9 Depression Total Score: 0 02/17/19 11:42 AM EST documented as of this encounter Care Teams Director Of Special Services Relationship Specialty Start Date End Date Angelique Bolaños FNP [address] [place] [address] PCP - General Family Medicine 11/08/22 Vera Mcgovern PharmD [address] [place] [address] Pharmacist Internal Medicine 08/20/23 documented as of this encounter
--- OUTSIDE RECORDS SUMMARY | 2024-05-19 17:53 | XMS_ITS | Encounter Summary ---
Author Organization [employer] Address [address] [place] [address] 7t [place] [address] Care Team Providers Care Anthropology Faculty Member Name Role Phone [facility] Primary Care Provider [phone] Vera Mcgovern PharmD Unavailable [phone] Encounter Details Date Type Department Care Team ([facility] st Contact Info) Description 01/13/2024 Telephone [facility] 230 [place], [place] [phone] [facility] 230 [place] [address] Social History Tobacco Use Types Packs/Day Years [...] Date Recorded Patient Health Questionnaire-9 Score 0 05/02/2023 Patient Health Questionnaire-9 Score 0 05/02/2023 Last PHQ-9: Questionnaire Data Not on file 0 05/02/2023 Housing Stability Answer Date Recorded What is [...] Date Recorded Patient Health Questionnaire-2 Score 0 05/02/2023 Comments Unknown Sex and Gender Information Value Date Recorded Sex Assigned at Female 12/10/2021 10:15 AM EDT Legal Sex Female 10:15 AM EDT Gender Identity Female 12/10/2021 10:15 AM EDT Sexual Orientation Straight 12/10/2021 10 :15 AM EDT documented as of this encounter Plan of Treatment Upcoming Encounters Date Type Department Care Team (Late st Contact Info) Description 05/24/2024 1:00 PM EDT Medication Management [facility] [address] [place] [address] Sophie Zapata PharmD 230 [place] [address] 06/24/2024 3:30 PM EDT Office Visit [facility] [address] [place] [address] Wilton, Anaid, OD 230 [place] [address] documented as of this encounter Goals Goal Patient Goal Type Associated Problems Recent Progress Patient-Stated? Author Hemoglobin A1c < 7 Result Component 12.1(02/17/19 25 11:43 AM EST) No Vera Bean, PharmD Record your blood sugar as directed Result Component No Vera Bean PharmD documented as of this encounter Visit Diagnoses Not on filedocumented in this encounter Additional Health Concerns Assessment Noted Time PHQ-9 Depression Total Score: 0 05/02/19 24 4:28 PM EDT documented as of this encounter Care Teams Anthropology Faculty Member Relationship Specialty Start Date End Date HardwickAngelique, MAGNETIC TESTING TECHNICIAN [address] [place] [address] PCP - General Family Medicine 11/08/22 Vera Mcgovern, Maddy [address] [place] [address] Pharmacist Internal Medicine 08/20/23 documented as of this encounter
--- OUTSIDE RECORDS SUMMARY | 2024-05-19 17:53 | XMS_ITS | Encounter Summary ---
Author Organization [employer] Address [address] [place] [address] 7t [place] [address] Care Team Providers Care Disposal Operator Name Role Phone Jen Sousa [facility] Primary Care Provider [phone] Angelique Bolaños [facility]ER Primary Care Provider [phone] Vera Mcgovern PharmD Unavailable [phone] Encounter Details Date Type Department Care Team (Late st Contact Info) Description 06/27/2022 Telephone [facility] [address] [place], [place] [phone] Ghada King, TERE Social History Tobacco Use Types Packs/Day Years Used Date Smoking Tobacco: Every Day Cigarettes Smokeless Tobacco: Never Alcohol Use Standard Drinks/Week Comments Never 0 (1 standard drink = 0.6 oz pur e alcohol) Comments Unknown Sex and Gender Information Value [...] Description 05/24/2024 1:00 PM EDT Medication Management [facility] [address] [place], [place] [phone] Sophie Zapata, PharmD 230 [place] [address] 06/24/2024 3:30 PM EDT Office Visit [facility] OPT[facility] [address] [place] [address] WiltonAnaid, OD 230 [place] [address] documented as of this encounter Visit Diagnoses Not on filedocumented in this encounter Care Teams Disposal Operator Relationship Specialty Start Date End Date Jen Sousa FNP 230 [place] [address] PCP - General Family Medicine 10/04/21 11/07/22 DaytonAngelique FNP 230 [place] [address] PCP - General Family Medicine 11/08/22 Vera Mcgovern, JessicaD 230 [place] [address] Pharmacist Internal Medicine 08/20/23 documented as of this encounter
--- OUTSIDE RECORDS SUMMARY | 2024-05-19 17:53 | XMS_ITS | Encounter Summary ---
Author Organization [employer] Address [address] [place] [address] 7t [place] [address] Care Team Providers Care Halver Machine Operator Name Role Phone Jen Sousa CERTIFIED DIETARY MANAGER Primary Care Provider [phone] Angelique Bolaños CERTIFIED DIETARY MANAGER Primary Care Provider [phone] Vera Mcgovern PharmD Unavailable [phone] Encounter Details Date Type Department Care Team (Late Contact Info) Description 03/20/2022 Telephone [facility] 230 [place], [place] [phone] Ghada King, TERE Social History Tobacco Use [...] Orientation Straight 12/10/2021 10 :15 AM EDT COVID-19 Exposure Response Date Recorded In the last 10 days, have yo u been in contact with someone who was confirmed or suspected to have Coronavirus/COVID-19? No / Unsure 03/19/2022 1:08 PM EST documented as of this encounter Plan of Treatment Upcoming Encounters Date Type Department Care Team (Late st Contact Info) Description 05/24/2024 1:00 PM EDT Medication Management [facility] [address] [place] [address] Sophie Zapata, PharmD 230 [place], [place] [phone] 06/24/2024 3:30 PM EDT Office Visit [facility] [address] [place], [place] [phone] Anaid Núñez, OD 230 [place] [address] documented as of this encounter Visit Diagnoses Not on filedocumented in this encounter Care Teams Halver Machine Operator Relationship Specialty Start Date End Date Jen Sousa FNP 230 [place] [address] PCP - General Family Medicine 10/04/21 11/07/22 Angelique Bolaños FNP 230 [place] [address] PCP - General Family Medicine 11/08/22 Vera Mcgovern, Maddy [address] [place] [address] Pharmacist Internal Medicine 08/20/23 documented as of this encounter
--- OUTSIDE RECORDS SUMMARY | 2024-05-19 17:53 | XMS_ITS | Encounter Summary ---
Author Organization [employer] Address [address] [place] [address] 7t [place] [address] Care Team Providers Care Sub Prior Name Role Phone [facility] Primary Care Provider [phone] Vera Mcgovern PharmD Unavailable [phone] Reason for Visit * Reason Onset Date Comments Nurse Triage 01/16/2023 Encounter Details Date Type Department Care Team (Late st Contact Info) Description 01/16/[address] [facility] MEDICINE [address] [place] [address] [facility] [address] [place] [address] Nurse Triage Social History Tobacco Use Types Packs/Day Years Used Date Smoking Tobacco: Every Day Cigarettes Smokeless Tobacco: Never Alcohol Use Standard Drinks/Week Comments Never 0 (1 standard drink = 0.6 oz pur e alcohol) Depression Answer Date Recorded Patient Health Questionnaire-9 Score 24 12/13/2022 Patient Health Questionnaire-9 Score 24 12/13/2022 Last PHQ-9: Questionnaire Data Not on file 1 02/12/2022 Housing Stability Answer Date Recorded What is [...] Answer Date Recorded Patient Health Questionnaire-2 Score 6 12/13/2022 Comments Unknown Sex and Gender Information Value Date Recorded Sex Assigned at Female 12/10/2021 10:15 AM EDT Legal Sex Female 10:15 AM EDT Gender Identity Female 12/10/2021 10:15 AM EDT Sexual Orientation Straight 12/10/2021 10 :15 AM EDT documented as of this encounter Miscellaneous Notes * Telephone Encounter - Olya Aranda RN - 01/16/2023 1:06 PM EST Call to Billie Martínez, reports having epigastric burning intermittent pain. No vomiting or diarrhea. NO abdominal swelling or fever. Per pt has hx of GERD and takes pantoprazole. Per pt does not believe its GERD but more related to her liver. Pt advised that no appts with PCP sooner than scheduled follow up. Advisd to seek WIC for acute concerns. Pt then asked about US order appt. Reviewed referral notes. Pt Scheduled 01/22/2023 at 8:30 am [facility]. Pt agrees to keep this appt and will seek WIC for pain. Protocol Used: Abdominal Pain - Upper (Adult) Protocol-Based Disposition: See in Office or Video Visit within 2 Weeks Future Appointments Date Time Provider Department Center 03/03/2023 12:15 PM [facility] Positive Triage Question: * Abdominal pain is a chronic symptom (recurrent or ongoing AND lasting > 4 weeks) * All higher-acuity triage questions were negative Care Advice Discussed: * Reassurance and Education - Stomach Pain * Antacid Medicine * Drink Clear Fluids * Diet * Avoid Aspirin and NSAIDs * Stop Smoking * Food Recommendations to Reduce Reflux * Reasons To Call Back - Severe pain present over 1 hour - You become worse * Telephone Encounter - Dorothy Cardona - 01/16/2023 12:07 PM EST Symptom: Abdominal Pain - Female - Not Outcome: Talk to a nurse or provider within 15 minutes Reason: Walks bent over The caller accepted this outcome Pt also have questions on medications documented in this encounter Plan of Treatment Upcoming Encounters Date Type Department Care Team (Late st Contact Info) Description 05/24/2024 1:00 PM EDT Medication Management [facility] MEDICINE [address] [place] [address] Sophie Zapata, JessicaD 230 [place] [address] 06/24/2024 3:30 PM EDT Office Visit [facility] OPTOMETRY [address] [place] [address] Wilton, Anaid, OD 230 [place] [address] documented as of this encounter Visit Diagnoses Not on filedocumented in this encounter Additional Health Concerns Assessment Noted Time PHQ-9 Depression Total Score: 24 023 3:37 PM EDT documented as of this encounter Care Teams Sub Prior Relationship Specialty Start Date End Date Angelique Bolaños FNP 230 [place] [address] PCP - General Family Medicine 11/08/22 Vera Mcgovern, JessicaD 230 [place] [address] Pharmacist Internal Medicine 08/20/23 documented as of this encounter
--- OUTSIDE RECORDS SUMMARY | 2024-05-19 17:53 | XMS_ITS | Encounter Summary ---
Author Organization [employer] Address [address] [place] [address] 7t [place] [address] Care Team Providers Care Casino Assistant Manager Name Role Phone Jen Sousa Primary Care Provider [phone] MarburyAngelique chong Primary Care Provider [phone] Vera Mcgovern PharmD Unavailable [phone] Encounter Details Date Type Department Care Team ([facility] Contact Info) Description 05/14/2022 Telephone [facility] 230 [place], [place] [phone] Jen Sousa FNP [address] [place] [address] Social History Tobacco Use Types Packs/Day Years [...] suspected to have Coronavirus/COVID-19? No / Unsure 05/01/2022 2:21 PM EDT documented as of this encounter Plan of Treatment Upcoming Encounters Date Type Department Care Team ([facility] Contact Info) Description 05/24/2024 1:00 PM EDT Medication Management [address] [address] Sophie Zapata, PharmD 230 [place] [address] 06/24/2024 3:30 PM EDT Office Visit [facility] OPT[facility] [address] [place] [address] Anaid Núñez, OD 230 [place] [address] documented as of this encounter Visit Diagnoses Not on filedocumented in this encounter Care Teams Casino Assistant Manager Relationship Specialty Start Date End Date Jen Sousa FNP 230 [place] [address] PCP - General Family Medicine 10/04/21 11/07/22 MarburyAngelique FNP 230 [place] [address] PCP - General Family Medicine 11/08/22 Vera Mcgovern, JessicaD 230 [place] [address] Pharmacist Internal Medicine 08/20/23 documented as of this encounter
--- OUTSIDE RECORDS SUMMARY | 2024-05-19 17:53 | XMS_ITS | Encounter Summary ---
Author Organization [employer] Address [address] [place] [address] 7t [place] [address] Care Team Providers Care Respiratory Therapist Assistant Name Role Phone Jen Sousa [facility] Primary Care Provider [phone] Angelique Bolaños CHANGE MANAGEMENT Primary Care Provider [phone] Vera Mcgovern PharmD Unavailable [phone] Encounter Details Date Type Department Care Team (Late Contact Info) Description 07/01/2022 Orders Only [facility] [address] [place] [address] Rody Campbell LPN Social History Tobacco Use Types Packs/Day Years [...] Encounters Date Type Department Care Team (Late Contact Info) Description 05/24/2024 1:00 PM EDT Medication Management [facility] [address] [place], [place] [phone] Sophie Zapata, PharmD 230 [place] [address] 06/24/2024 3:30 PM EDT Office Visit [facility] [address] [place], [place] [phone] Anaid Núñez, OD 230 [place] [address] documented as of this encounter Visit Diagnoses Not on filedocumented in this encounter Care Teams Respiratory Therapist Assistant Relationship Specialty Start Date End Date Jen Sousa FNP [address] [place] [address] PCP - General Family Medicine 10/04/21 11/07/22 PewaukeeAngelique FNP [address] [place] [address] PCP - General Family Medicine 11/08/22 Vera Mcgovern PharmD [address] [place] [address] Pharmacist Internal Medicine 08/20/23 documented as of this encounter
--- OUTSIDE RECORDS SUMMARY | 2024-05-19 17:53 | XMS_ITS | Encounter Summary ---
Author Organization [employer] Address [address] [place] [address] 7t [place] [address] Care Team Providers Care Plier Worker Name Role Phone Mami Angelique SECTION HOUSEKEEPER Primary Care Provider [phone] Vera Mcgovern PharmD Unavailable [phone] Reason for Visit * Reason Comments Med Refill Encounter Details Date Type Department Care Team (Late st Contact Info) Description 03/28/2023 Refill [facility] 230 [place], [place] [phone] Name, MD Ammon [address] [place] [address] Pain Social History Tobacco Use Types Packs/Day Years Used Date Smoking Tobacco: Every Day Cigarettes Smokeless Tobacco: Never Alcohol Use Standard Drinks/Week Comments Never 0 (1 standard drink = 0.6 oz pur e alcohol) Depression Answer Date Recorded Patient Health Questionnaire-9 Score 17 03/07/2023 Patient Health Questionnaire-9 Score 17 03/07/2023 Last PHQ-9: Questionnaire Data Not on file 0 03/07/2023 Housing Stability Answer Date Recorded What is [...] Answer Date Recorded Patient Health Questionnaire-2 Score 3 03/07/2023 Comments Unknown Sex and Gender Information Value [...] Description 05/24/2024 1:00 PM EDT Medication Management [facility] [address] [place] [address] Sophie Zapata PharmD [address] [place] [address] 06/24/2024 3:30 PM EDT Office Visit [facility] [address] [place], [place] [phone] Wilton, Anaid, OD 230 [place] [address] documented as of this encounter Visit Diagnoses Diagnosis Pain Generalized pain documented in this encounter Additional Health Concerns Assessment Noted Time PHQ-9 Depression Total Score: 17 024 12:52 PM EST documented as of this encounter Care Teams Plier Worker Relationship Specialty Start Date End Date Angelique Bolaños, JESS 230 [place] [address] PCP - General Family Medicine 11/08/22 Vera Mcgovern, JessicaD [address] [place] [address] Pharmacist Internal Medicine 08/20/23 documented as of this encounter
--- OUTSIDE RECORDS SUMMARY | 2024-05-19 17:53 | XMS_ITS | Encounter Summary ---
Author Organization [employer] Address [address] [place] [address] 7t [place] [address] Care Team Providers Care Vp Delivery Name Role Phone [facility] Primary Care Provider [phone] Vera Mcgovern PharmD Unavailable [phone] Reason for Visit * Reason Comments Med Refill Encounter Details Date Type Department Care Team (Late st Contact Info) Description 11/12/2022 Refill [facility] [address] [place] [address] [facility], [facility] [address] [place] [address] Social History Tobacco Use Types Packs/Day Years Used Date Smoking Tobacco: Every Day Cigarettes Smokeless Tobacco: Never Alcohol Use Standard Drinks/Week Comments Never 0 (1 standard drink = 0.6 oz pur e alcohol) Depression Answer Date Recorded Patient Health Questionnaire-9 Score 24 11/06/2022 Depression Answer Date Recorded Patient Health Questionnaire-2 Score 6 11/06/2022 Comments Unknown Sex and Gender Information Value [...] EDT Medication Management [facility] [address] [place] [address] Sophie Zapata PharmD [address] [place] [address] 06/24/2024 3:30 PM EDT Office Visit [facility] OPT[facility] [address] [place], [place] [phone] Anaid Núñez, OD 230 [place] [address] documented as of this encounter Visit Diagnoses Not on filedocumented in this encounter Additional Health Concerns Assessment Noted Time PHQ-9 Depression Total Score: 023 3:16 PM EDT documented as of this encounter Care Teams Vp Delivery Relationship Specialty Start Date End Date Angelique Bolaños FNP 230 [place] [address] PCP - General Family Medicine 11/08/22 Vera Mcgovern PharmD [address] [place], [place] [phone] Pharmacist Internal Medicine 08/20/23 documented as of this encounter
--- OUTSIDE RECORDS SUMMARY | 2024-05-19 17:53 | XMS_ITS | Encounter Summary ---
Author Organization [employer] Address [address] [facility] 7t [place] [address] Care Team Providers Care Stave Jointer Name Role Phone [facility] Primary Care Provider [phone] Vera Mcgovern PharmD Unavailable [phone] Reason for Visit * Reason Comments Med Refill Encounter Details Date Type Department Care Team (Late st Contact Info) Description 01/27/2023 Refill [facility] MED [facility] PEDS [address] [place], [place] [phone] [facility], [facility] [address] [place] [address] Chronic low back pain, unspecified back pain laterality, unspecified whether sciatica present Social History Tobacco Use Types Packs/Day Years [...] encounter Miscellaneous Notes * Telephone Encounter - Gunjan Martinez RN - 01/29/2023 11:19 AM EST RN called [facility] pharmacy in regards to below message. Lyrica 225mg has been discontinued d/t medication being increased to 300mg BID. [facility] pharmacy reports refill request was sent prior to them discontinuing the medication. No refill needed at this time. Please DISCONTINUE lyrica 225mg from med[facility] toprevent confusion in future. Thank you! documented in this encounter Plan of Treatment Upcoming Encounters Date Type Department Care Team (Late st Contact Info) Description 05/24/2024 1:00 PM EDT Medication Management [facility] MEDICINE [address] [place] [address] Sophie Zapata, PharmD [address] [place] [address] 06/24/2024 3:30 PM EDT Office Visit [facility] OPTOM[facility] [address] [place] [address] Anaid Núñez, OD 230 [place] [address] documented as of this encounter Visit Diagnoses Diagnosis Chronic low back pain, unspecified back pain laterality, unspecified whether sciatica present documented in this encounter Additional Health Concerns Assessment Noted Time PHQ-9 Depression Total Score: 24 023 3:37 PM EDT documented as of this encounter Care Teams Stave Jointer Relationship Specialty Start Date End Date Angelique BolañosJESS 230 [place] [address] PCP - General Family Medicine 11/08/22 Vera Mcgovern PharmD 230 [place] [address] Pharmacist Internal Medicine 08/20/23 documented as of this encounter
--- OUTSIDE RECORDS SUMMARY | 2024-05-19 17:53 | XMS_ITS | Encounter Summary ---
Author Organization [employer] Address [address] [facility] 7t [place] [address] Care Team Providers Care Maintenance Instructor Name Role Phone [facility] Primary Care Provider [phone] Vera Mcgovern PharmD Unavailable [phone] Reason for Visit * Reason Comments Med Refill Encounter Details Date Type Department Care Team ([place] [facility] st Contact Info) Description 01/24/2023 Refill [facility] MED & PEDS [address] [place], [place] [phone] Jen Sousa FNP [address] [place], [place] [phone] Type 2 diabetes mellitus with hyperglycemia, with long-term current use of insulin ([facility]) Social History Tobacco Use Types Packs/Day Years [...] is your housing situation today? I have solapino russ 11/25/[address] you [...] 1:00 PM EDT Medication Management [facility] MEDICINE [address] [place] [address] Sophie Zapata PharmD [address] [place] [address] 06/24/2024 3:30 PM EDT Office Visit [facility] OPTOMETRY [address] [place] [address] Witlon, Anaid, OD [address] [place] [address] documented as of this encounter Visit Diagnoses Diagnosis Type 2 diabetes mellitus with hyperglycemia, with long-term current use of insulin ([facility]) documented in this encounter Additional Health Concerns Assessment Noted Time PHQ-9 Depression Total Score: 24 023 3:37 PM EDT documented as of this encounter Care Teams Maintenance Instructor Relationship Specialty Start Date End Date Angelique Bolaños FNP [address] [place] [phone] PCP - General Family Medicine 11/08/22 Vera Mcgovern, JessicaD [address] [place] [phone] Pharmacist Internal Medicine 08/20/23 documented as of this encounter
--- OUTSIDE RECORDS SUMMARY | 2024-05-19 17:53 | XMS_ITS | Encounter Summary ---
Author Organization [employer] Address 75 [facility] 7t [place] [address] Care Team Providers Care Outbound Supervisor Name Role Phone [facility] Primary Care Provider [phone] Vera Mcgovern PharmD Unavailable [phone] Reason for Visit * Reason Comments Med Refill Encounter Details Date Type Department Care Team (Late st Contact Info) Description 01/22/2023 Refill [facility] CHC MED & PEDS [address] [place], [place] [phone] [facility], [facility] [address] [facility] [place] [address] Chronic midline low back pain with sciatica, sciatica laterality unspecified; Chronic low back pain, unspecified back pain [...] Description 05/24/2024 1:00 PM EDT Medication Management [facility] MEDICINE [address] [place] [address] Sophie Zapata, PharmD [address] [place] [address] 06/24/2024 3:30 PM EDT Office Visit [facility] OPTOMETRY [address] [place] [address] Wilton, Anaid, OD [address] [place] [address] documented as of this encounter Visit Diagnoses Diagnosis Chronic midline low back pain with sciatica, sciatica laterality unspecified Chronic low back pain, unspecified back pain laterality, unspecified whether sciatica present documented in this encounter Additional Health Concerns Assessment Noted Time PHQ-9 Depression Total Score: 24 023 3:37 PM EDT documented as of this encounter Care Teams Outbound Supervisor Relationship Specialty Start Date End Date Angelique Bolaños FNP [address] [place] [address] PCP - General Family Medicine 11/08/22 Vera Mcgovern, JessicaD [address] [place] [address] Pharmacist Internal Medicine 08/20/23 documented as of this encounter
--- OUTSIDE RECORDS SUMMARY | 2024-05-19 17:53 | XMS_ITS | Encounter Summary ---
Author Organization [employer] Address [address] [place] [address] 7t [place] [address] Care Team Providers Care Jumpbasting Machine Operator Name Role Phone [facility] Primary Care Provider [phone] Vera Mcgovern PharmD Unavailable [phone] Reason for Visit * Reason Onset Date Comments Nurse Triage 04/02/2023 Encounter Details Date Type Department Care Team (Late st Contact Info) Description 04/02/2023 Telephone [facility] MEDICINE [address] [place] [address] [facility] [address] [place] [address] Nurse Triage Social History Tobacco Use Types [...] encounter Miscellaneous Notes * Telephone Encounter - Tiffanie Yeung LPN - 04/02/2023 1:51 PM EST Please request note of patient ED visit on 03/30/23. Seen at [facility] No scheduled appt.But will present to [facility] for alternate issue. * Telephone Encounter - Tiffanie Yeung LPN - 04/02/2023 1:50 PM EST Triage call returned to patient who was seen at [facility] ED 03/30/23 for dx of bronchitis was placed on prednisone that she has been compliant with and will finish on Friday. Has tactile fever attonight and pain in chest from persistent cough. Productive of phlegm and new onset of headache with pressure in sinuses with worsened pain bending over. Has taken Excedrin migraine with no relief. No numbness of weakness at time of call. Nasal discharge is neon yellow No ear pain or sore throat.CXR in ED WNL. Disposition reviewed and patient in agreement with plan.no PCP or Team appts available at time of call. Patient advised of [facility] hours and availability for today and tomorrow at timeof call. Triage nurse informed the patient may have a wait of 1-2 hours because [facility] may h ave delays from patient???s walking in with urgent medical needs. Insurance verified at time of call. ED CXR in chart notes of visit requested now. Multiple (2) protocols were used on this call. Disposition for Call: Go to Office or Video Visit Now Protocol Used: Sinus Pain or Congestion (Adult) Protocol-Based Disposition: Go to Office or Video Visit Now Video visit not offered Positive Triage Questions: * Severe sinus pain * Severe headache * All higher-acuity triage questions were negative Care Advice Discussed: * For a Runny Nose - Blow Your Nose * Hydration * Reasons To Call Back - Severe pain persists over 2 hours after pain medicine - Sinus pain persists over 1 day after using nasal washes - Sinus congestion (fullness) persists over 10 days - Fever lasts over 3 days - You become worse Protocol Used: Cough (Adult) Protocol-Based Disposition: See in Office or Video Visit Today or Tomorrow Video visit not offered Positive Triage Question: * Continuous (nonstop) coughing interferes with work or school and no improvement using cough treatment per Care Advice * All higher-acuity triage questions were negative Care Advice Discussed: * Cough Medicines * Cough Syrup With Dextromethorphan * Avoid Tobacco Smoke * Humidifier * Reasons To Call Back - Difficulty breathing - You become worse * Telephone Encounter - Wendie Cheng - 04/02/2023 1:22 PM EST Symptoms: Chest Pain - Adult, Cough Outcome: Talk to a nurse or provider within 15 minutes Reason: Getting worse,was seen at [facility] on 03/30 for bronchitis. The caller accepted this outcome Please contact pt at [phone] documented in this encounter Plan of Treatment Upcoming Encounters Date Type Department Care Team (Late st Contact Info) Description 05/24/2024 1:00 PM EDT Medication Management [facility] MEDICINE [address] [place], [place] [phone] Sophie Zapata, PharmD [address] [place], [place] [phone] 06/24/2024 3:30 PM EDT Office Visit [facility] OPTOMETRY [address] [place], [place] [phone] Anaid Núñez, OD [address] [place] [address] documented as of this encounter Visit Diagnoses Not on filedocumented in this encounter Additional Health Concerns Assessment Noted Time PHQ-9 Depression Total Score: 17 024 12:52 PM EST documented as of this encounter Care Teams Jumpbasting Machine Operator Relationship Specialty Start Date End Date Angelique Bolaños FNP [address] [place], [place] [phone] PCP - General Family Medicine 11/08/22 Vera Mcgovern, Maddy [address] [place] [address] Pharmacist Internal Medicine 08/20/23 documented as of this encounter
--- OUTSIDE RECORDS SUMMARY | 2024-05-19 17:53 | XMS_ITS ---
Author Organization [employer] Address [address] [place] [address] 7t [place] [address] Care Team Providers Care Manager Of Software Name Role Phone Mami Angelique KNEE BOLTER Primary Care Provider [phone] Vera Mcgovern PharmD Unavailable [phone] CM Complex Status:Outreach In Progress (Enrolling) Start date:04/29/2024 Enrollment reason:ADT Feed Overview ED- Pt went to [facility] ED on 04/28. Case Team Name Relationship Phone Saúl Urbina RN Registered Nurse(Responsible St aff) Continued Care and Services Coordination
--- OUTSIDE RECORDS SUMMARY | 2024-05-19 17:53 | XMS_ITS ---
Author Organization [employer] Address [address] [place] [address] 7t [place] [address] Care Team Providers Care Hotel Service Supervisor Name Role Phone Angelique Bolaños TUTORING MANAGER Primary Care Provider [phone] Vera Mcgovern PharmD Unavailable [phone] CHW Complex Status:Enrolled (Active) Start date:04/29/2024 Enrollment date:04/29/2024 Enrollment reason:ADT Feed Overview ED- Pt went to [facility] ED on 04/28. Case Team Name Relationship Phone Lauren Licea (Responsible Staff) Continued Care and Services Coordination
--- OUTSIDE RECORDS SUMMARY | 2024-05-19 17:53 | XMS_ITS | Clinical Summary ---
Author Organization [facility] Address [address] [place] [place] [address] Phone Care Team Providers Care Supply Service Worker Name Role Phone [place] [facility] Primary Care Provider [phone] Allergies Active Allergy Reactions Criticality Noted Date Comments Acetaminophen Nausea High 05/06/2024 Medications albuterol HFA (PROVENTIL HFA;VENTOLIN HFA) 108 (90 Base) MCG/ACT inhaler Inhale 2 puffs every 4 hours 12/05/19 22 Active Alcohol Swabs (Alcohol Prep) 70 % pads USE 1 TO CLEAN SKIN BEFORE INJECTION DIRECTED 03/26/19 25 Active Blood Glucose Monitoring Suppl (FreeStyle Lite) w/Device kit 1 each in the morning and 1 each at noon and 1 each in the evening. 05/02/19 23 Active Blood Pressure kit USE DIRECTED 03/01/19 24 Active budesonide-fo rmoterol (SYMBICORT) 80-4.5 MCG/ACT inhaler INHALE 2 PUFFS BY MOUTH TWICE DAILY IN THE MORNING AND AT BEDTIME. MAY ALSO USE FOR SHORTNESS OF BREATH. RINSE MOUTH AFTER USING. 02/19/19 25 Active busPIRone (BUSPAR) 10 MG tablet TAKE 1 TABLET BY MOUTH THREE TIMES DAILY IN THE MORNING, EVENING, AND BEDTIME FOR ANXIETY 03/26/19 25 Active cyclobenzapri ne (FLEXERIL) 5 MG tablet Take 5 mg by mouth 3 times daily as needed 02/17/19 25 Active Dulaglutide (Trulicity) 4.5 MG/0.5ML solution auto-injector Inject 4.5 mg under the skin 02/17/19 25 Active DULoxetine (CYMBALTA) [address] capsule Take 1 capsule by mouth 04/20/19 25 Active ferrous sulfate 325 (65 Fe) MG tablet TAKE 1 TABLET BY MOUTH EVERY OTHER DAY IN THE MORNING 10/20/19 24 Active insulin degludec (Tresiba FlexTouch) 200 UNIT/ML injection INJECT 40 UNITS SUBCUTANEOUSLY TWICE DAILY DIRECTED 02/11/19 25 Active lisinopril 2.5 MG tablet Take 2.5 mg by mouth every morning 02/26/19 25 Active metFORMIN XR (GLUCOPHAGE-X R) 500 MG 24 hr tablet TAKE 2 TABLETS BY MOUTH TWICE DAILY IN THE MORNING AND EVENING 02/22/19 25 Active Naloxone HCl 4 MG/0.1ML liquid Administer 0.1 mL into affected nostril(s) 10/20/19 21 Active pantoprazole (PROTONIX) 40 MG EC tablet Take 40 mg by mouth every morning 02/22/19 25 Active spironolacton e (Aldactone) 25 MG tablet Take 1 tablet (25 mg total) by mouth 1 (one) time each day 90 tablet 3 05/07/19 25 026 Active acetaminophen (TYLENOL) 500 MG tablet TAKE 1 TABLET BY MOUTH TWICE DAILY IN THE MORNING AND AT BEDTIME NEEDED FOR MILD PAIN 06/09/19 24 025 Discontinued (Discontinue d by another clinician (does not appear on AVS)) potassium chloride (K-TAB) 20 MEQ CR tablet Take 20 mEq by mouth in the morning and 20 mEq in the evening. 02/17/19 25 025 Discontinued (Formulary change) Active Problems Problem Noted Date Diagnosed Date Acute vaginitis 01/19/2024 Mild intermittent asthma with acute exacerbation 01/19/2024 Severe obesity 08/20/2023 Essential hypertension 05/05/2023 Splenomegaly 03/01/2023 History of calculus of kidney 12/13/2022 Moderate asthma 12/13/2022 Overview (05/05/2024): ?? Symbicort ?? Albuterol Anxiety 12/03/2022 Stress-related problem 12/03/2022 Obstructive sleep apnea 05/21/2022 Overview (05/05/2024): ?? 11/2021-sleep study [facility] with moderate CIPRIANO Chronic low back pain 01/19/2022 Overview (05/05/2024): Previously followed by [facility] pain mngmt. Lost to follow up. Rx'd tramadol by previous PCP which was discontinued due to lack of compliance with [employer] agreement. Pt reports widespread chronic pain. Found tramadol minimally helpful. Hx of PT without improvement. Generalized abdominal pain 01/19/2022 Other cirrhosis of liver 01/19/2022 Overview (05/05/2024): - Followed by [facility] - Abdominal ultrasound 02/14/23 w/ enlarged fatty liver with notable splenomegaly. - Abdomen CT 09/2023-cirrhosis with splenomegaly MELD score = 8 Thrombocytopenia (89,000) AFP negative (02/2023) - Unable to tolerate lasix (hypokalemia, hypotension) Type 2 diabetes mellitus 01/19/2022 Overview (05/05/2024): Tresiba 40mg b.i.d Invokana Metformin 03/2022-6.0 10/2022-5.8 BMP: 10/2022 Microalbumin: order at follow up Foot Exam: Complete at follow up Eye Exam: Discuss at follow up Lipid panel: 10/2022 ASCVD: Calculate pending updated labs Statin: Yes ASA: No VIKTOR/ARB: No Encouraged regular aerobic exercise for improved glycemic control Encouraged daily foot checks Encouraged lean protein snacks and to avoid foods high in sugar and simple carbohydrates Treatment Goals: A1c goal: <7% FBG goal: <130 2 hour post prandial goal: <180 Major depressive disorder 02/02/2020 Overview (05/05/2024): ?? Duloxetine ?? Buspirone Encounters Date Type Department Care Team Description 05/06/2024 2:30 PM EDT Office Visit [facility] [address] [place] [address] Alejandro Brice MD Hypokalemia (Primary Dx) from Last 3 Months Social History Tobacco Use Types Packs/Day Years Used Date Smoking Tobacco: Never Assessed Comments Unknown Sex and Gender Information Value Date Recorded Sex Assigned at Not on file Legal Sex Female 3:06 PM EST Gender Identity Not on file Sexual Orientation Not on file Last Filed Vital Signs Vital Sign Reading Time Taken Comments Blood Pressure 150/98 05/06/2024 2:20 PM EDT Pulse 96 05/06/2024 2:20 PM EDT Temperature - - Respiratory Rate - - Oxygen Saturation 97% 05/06/2024 2:20 PM EDT Inhaled Oxygen Concentration - - Weight 125 kg (275 lb) 05/06/2024 2:20 PM EDT Height - - Body Mass Index - - Plan of Treatment Upcoming Encounters Date Type Department Care Team (Late st Contact Info) Description 07/29/2024 3:30 PM EDT Office Visit [facility] [address] [place] [address] [place] [address] Alejandro Brice MD [address] [facility] [address] [place] [address] Health Maintenance Due Date Last Done Comments Hepatitis B Vaccine (1 of 3 - 19+ 3-dose series) 1993 03/07/2023, 01/29/2022, 08/10/2021 Pneumococcal Vaccine: Pediat rics (0 to 5 Years) and At-Risk Patients (6 to 64 Years) (2 of 2 - PCV) 04/29/2007 04/28/2006 Colorectal Cancer Screening: Annual FOBT 10/08/2023 Colorectal Cancer Screening: Colonoscopy 10/08/2023 Colorectal Cancer Screening: Sigmoidoscopy 10/08/2023 Diabetes: Ophthalmology Exam 02/23/2024 Diabetes: Pedal Pulse Checked 02/23/2024 Diabetes: Sensory Foot Exam 02/23/2024 Diabetes: Visual Foot Exam 02/23/2024 Diabetes: Hemoglobin A1C 05/18/2024 02/18/2024 Influenza Vaccine (Season Ended) 2024 01/30/20, 01/24/2006 Insurance MEDICAID [place] Care Teams Supply Service Worker Relationship Specialty Start Date End Date [facility] [address] [place] [id number] PCP - General 02/23/24
--- OUTSIDE RECORDS SUMMARY | 2024-05-19 17:53 | XMS_ITS | Encounter Summary ---
Author Organization [employer] Address [address] [place] [address] 7t [place] [address] Care Team Providers Care Technical Applications Specialist Name Role Phone [facility] Primary Care Provider [phone] Vera Mcgovern PharmD Unavailable [phone] Reason for Visit * Reason Onset Date Comments Nurse Triage 04/15/2023 Encounter Details Date Type Department Care Team (Late st Contact Info) Description 04/15/2023 Telephone [facility] MEDICINE [address] [place] [address] [facility] [address] [place] [address] Nurse Triage Social History Tobacco Use Types [...] Telephone Encounter - Olya Aranda RN - 04/15/2023 3:33 PM EST Call to Billie Martínez, reports having bleeding with passing stool x 1 week. Per pt noticed bleeding mixed in with stool and toilet water is bright red. Denies vomiting. Pt having approx. 4-5 episodes per day. Pt also noted small blood clots. Pt endorses having a rash as well. Pt advised of disposition with rationale. Pt agrees to [facility] ER now for exam . Sent to team for ER status check PRN. Protocol Used: Rectal Bleeding (Adult) Protocol-Based Disposition: Go to ED Now Positive Triage Question: * Moderate rectal bleeding (small blood clots, passing blood without stool, or toilet water turns red) more than once a day * All higher-acuity triage questions were negative Care Advice Discussed: * Reasons To Call Back - Bleeding increases in amount - You become worse * Telephone Encounter - Neymar Fletcher - 04/15/2023 3:28 PM EST Symptoms: Rash or Redness on One Body Area Only, Rectal Bleeding Outcome: Talk to a nurse or provider within 15 minutes Reason: Large amount of blood documented in this encounter Plan of Treatment Upcoming Encounters Date Type Department Care Team (Late st Contact Info) Description 05/24/2024 1:00 PM EDT Medication Management [facility] MEDICINE [address] [place] [address] Sophie Zapata, JessicaD [address] [place] [address] 06/24/2024 3:30 PM EDT Office Visit [facility] OPTOMETRY [address] [place], [place] [phone] Wilton, Anaid, OD [address] [place] [address] documented as of this encounter Visit Diagnoses Not on filedocumented in this encounter Additional Health Concerns Assessment Noted Time PHQ-9 Depression Total Score: 17 024 12:52 PM EST documented as of this encounter Care Teams Technical Applications Specialist Relationship Specialty Start Date End Date Angelique Bolaños, JESS [address] [place] [phone] PCP - General Family Medicine 11/08/22 Vera Mcgovern, JessicaD [address] [place] [phone] Pharmacist Internal Medicine 08/20/23 documented as of this encounter
--- OUTSIDE RECORDS SUMMARY | 2024-05-19 17:53 | XMS_ITS | Clinical Summary ---
Author Organization [employer] Address [address] [facility] [address] [place] [address] Care Team Providers Care Websphere Commerce Developer Name Role Phone Angelique Bolaños [facility] Primary Care Provider [phone] Vera Mcgovern PharmD Unavailable [phone] Allergies Active Allergy Reactions Criticality Noted Date Comments Acetaminophen 01/29/2022 Liver cirrhosis pt states she can't take med because of her liver Medications * This document contains information received from the source organization and may not represent a complete record from that organization. albuterol 108 (90 Base) MCG/ACT inhaler Inhale 2 puffs every 4 (four) hours. 022 Active naloxone (Narcan) 4 mg/0.1 mL nasal spray Administer 0.1 mL into affected nostril(s). 021 Active Blood Glucose Monitoring Suppl (FreeStyle Lite) w/Device kit 1 each 3 times daily. 1 kit 023 Active FREESTYLE LITE test strip Use as instructed 100 each 12 023 Active Blood Pressure kitIndications:O ther cirrhosis of liver (CMS/HCC),Spleno megaly Use as directed 1 kit 024 Active Acetaminophen Extra Strength 500 MG tablet TAKE 1 TABLET BY MOUTH TWICE DAILY IN THE MORNING AND AT BEDTIME NEEDED FOR MILD PAIN 60 tablet 1 024 Active Continuous Glucose Oil Changer (FreeStyle Bri 3 [place]) deviceIndication s:Type 2 diabetes mellitus with hyperglycemia, with long-term current use of insulin (CMS/HCC) 1 each 4 times daily. 1 each 024 Active glucose blood (FreeStyle Precision Ketan Test) test stripIndications :Type 2 diabetes mellitus with hyperglycemia, with long-term current use of insulin ([facility]) Test blood sugar 4 times daily 100 each 11 024 2024 Active ferrous sulfate (FeroSul) 325 (65 Fe) MG tabletIndication s:Disease of liver TAKE 1 TABLET BY MOUTH EVERY OTHER DAY IN THE MORNING 45 tablet 3 Active prazosin (Minipress) 2 MG capsuleIndicatio ns:Major depressive disorder, remission status unspecified, unspecified whether recurrent TAKE 1 CAPSULE BY MOUTH EVERY EVENING 90 capsule 3 Active TRUEplus Lancets 33G miscIndications: Type 2 diabetes mellitus with other specified complication ([facility]) USE DIRECTED TO TEST BLOOD SUGAR FOUR TIMES DAILY 100 each 5 Active pregabalin (Lyrica) 300 MG capsule TAKE 1 CAPSULE BY MOUTH TWICE DAILY IN THE MORNING AND IN THE EVENING 60 capsule 5 Active cyclobenzaprine (Flexeril) 5 MG tabletIndication s:Muscle spasm Take 1 tablet (5 mg) by mouth if needed in the morning, at noon, and at bedtime for muscle spasms. 30 tablet 2 Active Dulaglutide (Trulicity) 4.5 MG/0.5ML solution auto-injectorInd ications:Type 2 diabetes mellitus with hyperglycemia, with long-term current use of insulin ([facility]) Inject 4.5 mg under the skin 1 (one) time per week. 2 mL 3 Active Continuous Glucose Sensor (FreeStyle Bri 2 Sensor) miscIndications: Type 2 diabetes mellitus with hyperglycemia, with long-term current use of insulin ([facility]) Apply 1 sensor every 14 days 2 each 3 Active potassium chloride CR (K-Tab) 20 MEQ ER tabletIndication s:Hypokalemia Take 1 tablet (20 mEq) by mouth 2 times daily. Do not crush, chew, or split. 14 tablet 025 2025 Active budesonide-formo terol (Symbicort) 80-4.5 MCG/ACT inhalerIndicatio ns:Asthma, unspecified asthma severity, unspecified whether complicated, unspecified whether persistent INHALE 2 PUFFS BY MOUTH TWICE DAILY IN THE MORNING AND AT BEDTIME. MAY ALSO USE FOR SHORTNESS OF BREATH. RINSE MOUTH AFTER USING. 10.2 g Active metFORMIN XR (Glucophage-XR) 500 MG 24 hr tabletIndication s:Type 2 diabetes mellitus with hyperglycemia, with long-term current use of insulin ([facility]/HCC) TAKE 2 TABLETS BY MOUTH TWICE DAILY IN THE MORNING AND EVENING 360 tablet Active pantoprazole (ProtoNix) 40 MG EC tablet TAKE 1 TABLET BY MOUTH EVERY MORNING ON AN EMPTY STOMACH 90 tablet 025 Active rosuvastatin (Crestor) 40 MG tabletIndication s:Other hyperlipidemia TAKE 1 TABLET BY MOUTH AT BEDTIME 90 tablet Active insulin pen needle (UltiGuard SafePack Pen Needle) 32G x 4 mm miscIndications: Type 2 diabetes mellitus with hyperglycemia, with long-term current use of insulin ([facility]/HCC) Use as instructed 100 each 025 Active hydrocortisone (Anusol-HC) 2.5 % rectal creamIndications :Hemorrhoids, unspecified hemorrhoid type INSERT INTO THE RECTUM TWICE A DAY 20 g 025 Active Alcohol Swabs (Alcohol Prep) 70 % padsIndications: Type 2 diabetes mellitus with other specified complication, with long-term current use of insulin ([facility]) USE 1 TO CLEAN SKIN BEFORE INJECTION DIRECTED 100 each 025 Active busPIRone (Buspar) 10 MG tabletIndication s:Anxiety TAKE 1 TABLET BY MOUTH THREE TIMES DAILY IN THE MORNING, EVENING, AND BEDTIME FOR ANXIETY 90 tablet 025 Active lisinopril 2.5 MG tablet Take 2.5 mg by mouth in the morning. 025 Active DULoxetine (Cymbalta) [address] capsuleIndicatio ns:Chronic bilateral low back pain, unspecified whether sciatica present TAKE 1 CAPSULE BY MOUTH EVERY MORNING 30 capsule 025 Active propranolol (Inderal) 10 MG tabletIndication s:Other cirrhosis of liver (CMS/HCC) Take 1 tablet (10 mg) by mouth Once per day. 30 tablet 025 2025 Active insulin degludec (Tresiba FlexTouch) 200 UNIT/ML injectionIndicat ions:Type 2 diabetes mellitus with hypoglycemia without coma, with long-term current use of insulin ([facility]),Type 2 diabetes mellitus with hyperglycemia, with long-term current use of insulin ([facility]) INJECT 40 UNITS SUBCUTANEOUSLY TWICE DAILY DIRECTED 9 mL 2 025 Active propranolol (Inderal) 10 MG tabletIndication s:Other cirrhosis of liver ([facility]) Take 1 tablet (10 mg) by mouth in the morning. 30 tablet 11 024 2024 Discontinued(R eorder (will not trigger notification to Pharmacy)) Tresiba FlexTouch 200 UNIT/ML injectionIndicat ions:Type 2 diabetes mellitus with hypoglycemia without coma, with long-term current use of insulin ([facility]),Type 2 diabetes mellitus with hyperglycemia, with long-term current use of insulin ([facility]) INJECT 40 UNITS SUBCUTANEOUSLY TWICE DAILY DIRECTED 9 mL 2 025 2024 Discontinued(R eorder (will not trigger notification to Pharmacy)) Active Problems Patient Care Coordination No te Formatting of this note migh t be different from the original. C3/CM Alexus Goins RN Problem Noted Date Diagnosed Date Pyuria 05/19/2024 Assessment & Plan (05/19/2024 3:27 PM EDT): Seen at [facility] ED 05/17/24 for lower abdominal and left flank pain. Labs with urine culture showing 293 WBC. Presents today hemodynamically stable, but ill-appearing and in mild distress. Will send via ambulance to [facility] ED for further evaluation. Continuous severe abdominal pain 05/19/2024 Assessment & Plan (05/19/2024 3:26 PM EDT): Left flank pain, RUQ pain on exam. + CVA tenderness. Given pyuria and acute kidney injury on labs from [facility] ED visit 05/17/24, suspect possible acute pyelonephritis. Presents today hemodynamically stable, but ill-appearing and in mild distress. Will send via ambulance to [facility] ED for further evaluation. Acute flank pain 05/19/2024 Assessment & Plan (05/19/2024 3:26 PM EDT): Left flank pain on exam. + CVA tenderness. Given pyuria and acute kidney injury on labs from [facility] ED visit 05/17/24, suspect possible acute pyelonephritis. Presents today hemodynamically stable, but ill-appearing and in mild distress. Will send via ambulance to [facility] ED for further evaluation. Thrombocytopenia 05/19/2024 Assessment & Plan (05/19/2024 3:29 PM EDT): Like acute on chronic, worsening due to underlying bacterial infection. Pt was seen at [facility] ED 05/17/24 for lower abdominal and left flank pain. Labs showing platelets of 64. Presents today hemodynamically stable, but ill-appearing and in mild distress. Will send via ambulance to [facility] ED for further evaluation. Elevated lipase 05/19/2024 Assessment & Plan (05/19/2024 3:29 PM EDT): Pt was seen at [facility] ED 05/17/24 for lower abdominal and left flank pain. Labs showing lipase of 95. Presents today hemodynamically stable, but ill-appearing and in mild distress. Will send via ambulance to [facility] ED for further evaluation. Acute kidney injury 05/19/2024 Assessment & Plan (05/19/2024 3:27 PM EDT): Seen at [facility] ED 05/17/24 for lower abdominal and left flank pain. Labs with creatinine of 1.23. Presents today hemodynamically stable, but ill-appearing and in mild distress. Will send via ambulance to [facility] ED for further evaluation. 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 Apply Desitin on affected areas. Mild intermittent asthma with acute exacerbation 01/19/2024 Assessment & Plan (01/20/2024 8:08 PM EST): RO bronchitis, rx Z-pack Increase albuterol inh to Q4h x 5 d then prn. Continue Symbicort bid Acute vaginitis 01/19/2024 Assessment & Plan (03/06/2024 4:25 PM EST): Most likely recurrent candidiasis due to uncontrolled DM. Advised to control DM with her PCP. Fluconazole 150 mg weekly x 3 weeks. Apply Lotrisone cream + Desitin ointment BID to affected areas. Assessment & Plan (01/20/2024 8:09 PM EST): Probably vaginal candidiasis. I will rx fluconazole now. Can repeat in 1-2w if she has recurrent sxs after abs rx. FU vaginal swab results Severe obesity 08/20/2023 Essential hypertension 05/05/2023 Splenomegaly 03/01/2023 Moderate asthma 12/13/2022 Overview (12/13/2022): ?? Symbicort ?? Albuterol History of renal stone 12/13/2022 Anxiety 12/03/2022 Assessment & Plan (12/09/2022 9:44 AM EDT): Patient with chronic back pain and symptoms of depression and anxiety. Reason for visit was to assess symptoms, provide intervention/support and offer referral. No risk for SI or self-harm. Severe pain, sense of isolation and severe depression are exacerbating symptoms. Plan is to refer patient for OP individual therapy. Provided [facility] contact information for sooner appointments. Provided psychoeducation around chronic pain and depression. At this time Billie Martínez meets criteria for Visit Diagnoses: Problem List Items Addressed This Visit Other Chronic low back pain Major depressive disorder Anxiety Stress-related problem Patient ready to address current needs Yes Strengths include readiness to change PLAN: 1. Follow up with C: Not recommended for follow-up 2. Patient goal is to get connected with services and decrease chronic back pain 3. Behavioral Recommendations a. OP referral for individual therapy b. Discuss medication management with provider c. Incorporate mindfulness exercises as a way of coping with chronic pain Stress-related problem 12/03/2022 Assessment & Plan (12/09/2022 9:44 AM EDT): Patient with chronic back pain and symptoms of depression and anxiety. Reason for visit was to assess symptoms, provide intervention/support and offer referral. No risk for SI or self-harm. Severe pain, sense of isolation and severe depression are exacerbating symptoms. Plan is to refer patient for OP individual therapy. Provided [facility] contact information for sooner appointments. Provided psychoeducation around chronic pain and depression. At this time Billie Martínez meets criteria for Visit Diagnoses: Problem List Items Addressed This Visit Other Chronic low back pain Major depressive disorder Anxiety Stress-related problem Patient ready to address current needs Yes Strengths include readiness to change PLAN: 1. Follow up with [facility]: Not recommended for follow-up 2. Patient goal is to get connected with services and decrease chronic back pain 3. Behavioral Recommendations a. OP referral for individual therapy b. Discuss medication management with provider c. Incorporate mindfulness exercises as a way of coping with chronic pain Routine health maintenance 05/21/2022 Assessment & Plan (05/21/2022 6:07 PM EDT): Overarching goal to feel more independent and improve health. First step will be to keep appts with specialists, and have assistance managing care. Referral to placed. Case management team, please with the following: ?? CPAP (DME generated 12/05/21, pt reports she still has not heard) ?? [facility] - due to schedule follow up appt ?? [facility] for cirrhosis of liver - due to establish as PHYSICAL THERAPIST AIDE Obstructive sleep apnea 05/21/2022 Overview (12/16/2022): ?? 11/2021-sleep study [facility] with moderate CIPRIANO Assessment & Plan (12/16/2022 4:27 PM EST): ?? Located sleep study report from 11/2021 ?? Message sent to DME specialist to initiate CPAP Assessment & Plan (05/21/2022 6:08 PM EDT): -DME request generated 12/05/21 -Pt reports still pending Chronic low back pain 01/19/2022 Overview (12/13/2022): Previously followed by [facility] pain mng[facility]. Lost to follow up. Rx'd tramadol by previous PCP which was discontinued due to lack of compliance with PATTERN [employer]TER agreement. Pt reports widespread chronic pain. Found tramadol minimally helpful. Hx of PT without improvement. Assessment & Plan (01/20/2024 8:11 PM EST): Take tylenol prn, had a recent fall. Rx bath tub bench + hand held shower. Advised to avoid going to the bathroom or kitchen by herself, her daughter assists on ADLs (she's her [employer]TA[employer]ING [employer]ER). FU with PCP Assessment & Plan (01/30/2022 6:52 PM EST): -Previously following with [facility], last consult note available from Mar 2021 -Plan to review MRI findings and discuss tx plan -Pt reports was not able to make follow up appt due to difficulties with transportation -Will request [place] assist with arranging PT1 services, referral to SDOH team if needed -Encourage pt to call [facility] to reschedule appt, call if in need of new referral (pt seen less than 1 year ago). Other cirrhosis of liver 01/19/2022 Overview (02/19/2024): - Followed by [facility] - Abdominal ultrasound 02/14/23 w/ enlarged fatty liver with notable splenomegaly. - Abdomen CT 09/2023-cirrhosis with splenomegaly MELD score = 8 Thrombocytopenia (89,000) AFP negative (02/2023) - Unable to tolerate lasix (hypokalemia, hypotension) Assessment & Plan (03/14/2023 2:01 PM EST): ?? Splenomegaly highly suggestive of varices present ?? To avoid further delays in care will START propranolol 10mg b.i.d for prevention of variceal hemorrhage ?? Repeat BMP today re lasix start ?? Follow up on STAT GI referral Assessment & Plan (12/16/2022 4:26 PM EST): ?? Concern for worsening of cirrhosis. Pt with spider nevi, abdominal fullness, fatigue, and worsening anemia on recent CBC ?? Will re-submit referral to [facility] STAT ?? Emphasized importance of completing referral ?? ED precautions reviewed ?? Liver enzymes 11/06/22 with mild elevation Lab Results Component Value Date ALT 22 11/06/2022 AST 38 (H) 11/06/2022 Assessment & Plan (05/21/2022 6:09 PM EDT): -Pt previously referred to [facility] but was unable to make appt due to transportation barriers -Printed out referral placed earlier this year to [facility] for pt to call to reschedule -Believe pt is already established with PT-1 visits for [facility], but will request to confirm -Re-started Hep B series Assessment & Plan (01/30/2022 6:56 PM EST): -Pt previously referred to [facility] but was unable to make appt due to transportation barriers -Printed out referral placed earlier this year to [facility] for pt to call to reschedule -Believe pt is already established with PT-1 visits for [facility], but will request to confirm -Hep B vaccine administered today Generalized abdominal pain 01/19/2022 Assessment & Plan (12/16/2022 4:27 PM EST): ?? Strongly suspect s/t chronic liver disease ?? NO focal tenderness ?? Generalized discomfort ?? Referral to GI Type 2 diabetes mellitus 01/19/2022 Overview (03/07/2023): Tresiba 40mg b.i.d Invokana Metformin 03/2022-6.0 10/2022-5.8 [...] <130 2 hour post prandial goal: <180 Assessment & Plan (03/14/2023 1:58 PM EST): Lab Results Component Value Date HGBA1C 7.2 (H) 03/07/2023 - BS >200 in office. Suspect A1c may not be accurate. Will consider fructosamine testing at follow up. Unable to titrate insulin as patient is not checking BS at home. Declines CGM -Counseled re importance of regular glucose monitoring - Pt agrees to DM nurse referral-will resubmit - Continue current regimen - Assessment & Plan (12/16/2022 4:00 PM EST): ?? Unfortunately no BS data available to review however concern for hypoglycemia given low A1c and pt reports of dizziness/fatigue ?? Will DECREASE tresiba to 40mg b.i.d ?? Pt missed iniital phone call from [facility] DM educator-will request they reach out again ?? Emphasized importance of regular BS monitoring with insulin use and risks of hypoglycemia Assessment & Plan (03/25/2022 9:32 AM EST): -Continue with insulin degludec 45 units BID -Continue with lispro 5 units TID AC -Will request DME request for CGM through [facility] Diabetes RN -Recheck A1c at follow up appt -ED precautions reviewed Assessment & Plan (01/30/2022 6:54 PM EST): -Continue with insulin degludec 45 units BID -Continue with lispro 5 units TID AC -Will request DME request for CGM through [facility] Diabetes RN -Recheck A1c at follow up appt -ED precautions reviewed Polypharmacy 01/19/2022 Overview (01/19/2022): Per previous EHR Major depressive disorder 02/02/2020 Overview (12/13/2022): ?? Duloxetine ?? Buspirone Assessment & Plan (12/16/2022 3:49 PM EST): ?? Referred for OP therapy 12/09/22 ?? Continue current rx as prescribed ?? Contact [facility] if sx worsen or experiencing thoughts of SI or self harm. Pt has [facility] crisis contact information Assessment & Plan (12/09/2022 9:44 AM EDT): Patient with chronic back pain and symptoms of depression and anxiety. Reason for visit was to assess symptoms, provide intervention/support and offer referral. No risk for SI or self-harm. Severe pain, sense of isolation and severe depression are exacerbating symptoms. Plan is to refer patient for OP individual therapy. Provided [facility] contact information for sooner appointments. Provided psychoeducation around chronic pain and depression. At this time Billie Martínez meets criteria for Visit Diagnoses: Problem List Items Addressed This Visit Other Chronic low back pain Major depressive disorder Anxiety Stress-related problem Patient ready to address current needs Yes Strengths include readiness to change PLAN: 1. Follow up with [facility]: Not recommended for follow-up 2. Patient goal is to get connected with services and decrease chronic back pain 3. Behavioral Recommendations a. OP referral for individual therapy b. Discuss medication management with provider c. Incorporate mindfulness exercises as a way of coping with chronic pain Resolved Problems Problem Noted Date Diagnosed Date Resolved Date Impaired mobility and ADLs 05/21/2022 0 05/21/2022 Assessment & Plan (05/21/2022 6:00 PM EDT): Overarching goal to feel more independent and improve health. First step will be to keep appts with specialists, and have assistance managing care. Referral to placed. Encounters Date Type Department Care Team Description 05/19/2024 3:00 PM EDT Office Visit [facility] [address] [place] [id number] Gretchen Romano MD Pyuria (Primary Dx); Continuous severe abdominal pain; Acute flank pain; Thrombocytopenia (CMS/HCC); Elevated lipase; Acute kidney injury (CMS/HCC) 05/19/2024 Orders Only GENERIC EXTERNAL DATA DEPARTMENT Provider, Generic External Data 05/19/2024 Travel 05/19/2024 Telephone [facility] MEDICINE [address] [place] [phone] MamiAngelique FNP [employer] 05/18/2024 Patient Outreach [facility] [address] [place] [phone] HialeahAngelique FNP 05/17/[address] [address] HialeahAngelique [facility] Nurse Triage 05/14/2024 Patient Outreach [address] [address] Hial[place] Angelique [facility] 05/14/2024 Patient Outreach [facility] [address] [place] [address] HialeahAngelique [facility] Care Management (C3CM- Initial assessment/enrollment ) 05/13/2024 Patient Outreach [address] [address] HialeahAngelique [facility] 05/13/2024 Patient Outreach [address] [address] [facility] Care Coordination 05/13/2024 Patient Outreach [address] [address] HialeahAngelique [facility] Care Coordination (C3 -[facility] Lauren Licea telephone call outreach) 05/11/[address] [address] HialeahAngelique [facility] Prior Authorization 05/10/[address] [address] HialeahAngelique [facility] Other cirrhosis of liver (CMS/HCC); Type 2 diabetes mellitus with hypoglycemia without coma, with long-term current use of insulin (CMS/HCC); Type 2 diabetes mellitus with hyperglycemia, with long-term current use of insulin (CMS/HCC) 04/30/2024 Telephone [facility] OPTOMETRY [address] [place] [address] Wilton, Anaid, OD 04/29/2024 Patient Outreach [facility] [address] [place] [address] HialeahAngelique [facility] Care Coordination (C3 CM-[facility] Lauren Licea chart review/) 04/29/2024 Patient Outreach [facility] [address] [place] [address] HialeahAngelique [employer]LL [employer] HELPER 04/29/2024 Patient Outreach [address] [address] HialeahAngelique FNP Care Coordination (C3CM- chart review) 04/29/2024 Patient Outreach [facility] [address] [facility] [place] [address] Angelique Bolaños FNP 04/26/2024 Telephone [facility] [address] [facility] [place] [address] HialeahAngelique chong FNP Nurse Triage 04/23/2024 Population Health Risk Score [facility] (C3) [address] [id number] Provider, Population Health Generic 04/18/2024 Refill [facility] [address] [facility] [place] [address] Angelique Bolaños FNP Chronic bilateral low back pain, unspecified whether sciatica present 04/05/2024 Orders Only [facility] [address] [facility] [place] [address] Lisha Maxwell MD Type 2 diabetes mellitus with other specified complication, with long-term current use of insulin ([facility]) (Primary Dx) 04/02/2024 Telephone [facility] [address] [facility] [place] [address] Angelique Bolaños [facility] 04/02/2024 Telephone [facility] [address] [place] [address] Teresa Darden, RN Results 03/26/2024 Refill [facility] [address] [place] [address] HialeahAngelique [facility] Type 2 diabetes mellitus with other specified complication, with long-term current use of insulin (CMS/FORMERLY [facility]); Anxiety 03/17/2024 3:30 PM EST Office Visit [facility] [address] [place] [address] [place], Anaid, OD Diabetes type 2, no ocular involvement (CMS/HCC) (Primary Dx); Dry eye syndrome of both eyes; Severe myopia of both eyes 03/17/2024 Travel 03/15/2024 Telephone [facility] [address] [facility] [place] [address] HialeahAngelique chong [facility] No Show 03/12/2024 Telephone [facility] [address] [place] [address] Angelique Bolaños FNP CHART PREP 03/05/2024 Refill [facility] [place] [address] Angelique Bolaños FNP Hemorrhoids, unspecified hemorrhoid type 03/04/2024 12:15 PM EST Office Visit [facility] [place] [address] Filomena Mcclelland MD Acute vaginitis (Primary Dx); 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 Orders Only [facility] [place] [address] Filomena Mcclelland MD 03/04/2024 Travel 03/04/2024 Patient Outreach [facility] [place] [address] Angelique Bolaños FNP Care Coordination (CHW outreach for SDOH PT-1 and food needs-referral completed /) 03/04/2024 Telephone [facility] [place] [address] Angelique Bolaños [facility] Uber 03/04/2024 Telephone [facility] [place] [address] HialeahAngelique [facility] PT1 03/02/2024 Telephone [facility] [place] [address] Angelique Bolaños [facility] Nurse Triage 02/24/2024 Telephone [facility] [place] [address] Angelique Bolaños [facility] Nurse Triage 02/23/2024 Orders Only [facility] [place] [address] Angelique Bolaños [facility] Type 2 diabetes mellitus with hyperglycemia, with long-term current use of insulin (CMS/[facility]ERLY [facility]) (Primary Dx) 02/23/2024 Travel 02/22/2024 Refill [facility] [address] [facility] [place] [address] Angelique Bolaños FNP Type 2 diabetes mellitus with hyperglycemia, with long-term current use of insulin (CMS/[facility]); Other hyperlipidemia 02/19/2024 Refill [facility] [address] [facility] [place] [address] Name, MD Ammon Asthma, unspecified asthma severity, unspecified whether complicated, unspecified whether persistent; Chronic bilateral low back pain, unspecified whether sciatica present 02/19/2024 Refill [facility] [address] [facility] [place] [address] [place], Angelique, [employer] Chronic bilateral low back pain, unspecified whether sciatica present from Last 3 Months Immunizations Name Administration Dates Next Due Hep A, Adult 08/10/2021 Hep B, adult 03/07/2023,01/29/2022,08/10/2021 Influenza Whole 01/24/2006 Influenza injectable quadriv alent preservative free 01/29/2022 Influenza, IIV3, injectable 01/29/2022 Pneumococcal Polysaccharide PPSV23 04/28/2006 Tdap 05/01/2022 Family History Medical History Relation Name Comments Liver disease Father's Sister Diabetes type II Mother Breast cancer Mother's Sister Relation Name Status Comments Father's Sister Mother Mother's Sister Social History Tobacco Use Types Packs/Day Years Used Date Smoking Tobacco: Every Day Cigarettes Smokeless Tobacco: Never Tobacco Cessation:Ready to Q uit: Not Asked; Counseling Given: Not Answered Alcohol Use Standard Drinks/Week Comments Never 0 [...] before you got money to buy more: Sometimes True 2024 Within the past 12 months,th e food you bought just didn't last and you didn't have enough money to get more: Sometimes True 04/29/2024 Transportation Answer Date Recorded In the past 12 months, has l ack of transportation kept you from medical appts, meetings, work or from getting things needed for daily living? No 05/13/2024 Utilities Answer Date Recorded In the past 12 months, has t he electric, gas, oil or water company threatened to shut off services in your home? No 11/25/2022 Depression Answer Date Recorded Patient Health Questionnaire-2 Score 0 02/18/2024 Internet Access Answer Date Recorded Internet Access Q1 Yes 04/29/2024 Internet Access Q2 Not on file 04/29/2024 Comments Unknown Sex and Gender Information Value Date Recorded Sex Assigned at Female 12/10/2021 10:15 AM EDT Legal Sex Female 10:15 AM EDT Gender Identity Female 12/10/2021 10:15 AM EDT Sexual Orientation Straight 12/10/2021 10 :15 AM EDT Last Filed Vital Signs Vital Sign Reading Time Taken Comments Blood Pressure 135/78 05/19/2024 3:09 PM EDT Pulse 81 05/19/2024 3:09 PM EDT Temperature 36.3 ??C (97.4 ??F) 05/19/2024 3:09 PM ED T Respiratory Rate 20 05/19/2024 3:09 PM EDT Oxygen Saturation 98% 05/19/2024 3:09 PM EDT Inhaled Oxygen Concentration - - Weight 124 kg (272 lb 12.8 oz) 05/19/2024 3:09 P M EDT Height 170.2 cm (5' 7 ) 03/04/2024 12:22 PM EST Body Mass Index 42.73 03/04/2024 12:22 PM EST Plan of Treatment Upcoming Encounters Date Type Department Care Team (Late st Contact Info) Description 05/24/2024 1:00 PM EDT Medication Management [facility] [address] [place], [place] [phone] Sophie Zapata, PharmD [address] [place] [address] 06/24/2024 3:30 PM EDT Office Visit [facility] [address] [place], [place] [phone] Anaid Núñez, OD [address] [place] [address] Health Maintenance Due Date Last Done Comments CT Colonography 1974 Colonoscopy 1974 Colorectal Cancer Screening 1974 FIT DNA/Cologuard 1974 FIT 1974 FOBT 1974 Sigmoidoscopy 1974 Diabetes: Foot Exam 1984 Alcohol/Substance Use Screening 1986 Family Planning (PISQ) 1989 Pap Smear 10/08/1995 Cervical Cancer Screening 2004 HPV/Cotest 2004 Pneumococcal Vaccine: Pediatrics (0 to 5 Years) and At-Risk Patients (6 to 49) Years) (2 of 2 - PCV) 04/29/2007 04/28/2006 Mammogram 2014 Hepatitis A Vaccines (2 of 2 - Risk 2-dose series) 02/10/2022 08/10/2021 COVID-19 Vaccine ( - season) 2023 Influenza Vaccine (#1) 2023 , 01/29/2022, 01/24/2006 Diabetes: Hemoglobin A1C 05/18/2024 025, 05/02/2023, 03/07/2023, Additional history exists Diabetes: Urine Protein Screening 09/17/2024 09/18/2023, 06/27/2020 Zoster Vaccines (1 of 2) 2024 Depression Screening 02/17/2025 02/18/2024, 02/17/19 25 Lipid Panel 02/17/2025 02/18/2024, 10/12, 06/27/2020 Tobacco Screening 04/05/2025 04/05/2024 SDOH Screening 05/13/2025 05/13/2024 Eye Exam 03/17/2026 03/17/2024, 0206/2024, 03/17/2024, Additional history exists DTaP/Tdap/Td Vaccines (2 - Td or Tdap) 05/01/2032 05/01/2022 RSV Patients and Patients Aged 60 years or older (1 - 1-dose 75+ series) 2049 HIV Screening Completed 11/06/2022 Hepatitis C Screening Completed 11/06/2022 , 08/10/2021, 06/27/2020 Hepatitis B Vaccines Completed 03/07/2023, 01/29/2022, 08/10/2021 HIB Vaccines Aged Out No longer eligi ble based on patient's age to complete this topic HPV Vaccines Aged Out No longer eligi ble based on patient's age to complete this topic IPV Vaccines Aged Out No longer eligi ble based on patient's age to complete this topic Meningococcal Vaccine Aged Out No beto pop eligible based on patient's age to complete this topic RSV under 20 months Aged Out No longe r eligible based on patient's age to complete this topic Rotavirus Vaccines Aged Out No longer eligible based on patient's age to complete this topic Goals Goal Patient Goal Type Associated Problems Recent Progress Patient-Stated? Author Hemoglobin A1c < 7 Result Component 12.1(02/17/19 11:43 AM EST) No Vera Bean PharmD Record your blood sugar as directed Result Component No Vera Bean PharmD Procedures Procedure Name Priority Date/Time Associated Diagnosis Comments SARS COV2/INFLUENZA A/B AND RSV RNA QL NAAT Routine 05/19/2024 4:35 PM EDT SLIDE REVIEW Routine 05/19/2024 4:34 PM EDT BETA-HYDROXYBUTYRATE Routine 05/19/2024 4:34 PM EDT MAGNESIUM Routine 05/19/2024 4:34 PM EDT COMPREHENSIVE METABOLIC PANEL Routine 05/19/2024 4:34 PM EDT HIGH SENSITIVITY TROPONIN I Routine 05/19/2024 4:34 PM EDT LACTIC ACID Routine 05/19/2024 4:34 PM EDT CBC WITH AUTO DIFFERENTIAL Routine 05/19/2024 4:34 PM EDT POCT URINALYSIS DIPSTICK Routine 05/19/2024 3:24 PM EDT Pyuria HERPES CULTURE WITH REFLEX TYPING Routine 03/04/2024 12:59 PM EST BACTERIAL VAGINOSIS PANEL Routine 03/04/2024 12:59 PM EST Acute vaginitis CHLAMYDIA/N. GONORRHOEAE RNA, TMA, UROGENITAL Routine 03/04/2024 12:59 PM EST Acute vaginitis LIPID PANEL, STANDARD Routine 02/18/2024 12:20 PM EST Type 2 diabetes mellitus with hyperglycemia, with long-term current use of insulin ([facility]) POCT GLYCATED HEMOGLOBIN, TOTAL Routine 02/18/2024 11:43 AM EST Type 2 diabetes mellitus with hyperglycemia, with long-term current use of insulin ([facility]) ALBUMIN, RANDOM URINE W/CREATININE Routine 09/18/2023 12:18 PM EDT HEPATITIS PANEL, GENERAL Routine 11/06/2022 9:28 AM EDT Healthcare maintenance HIV ANTIBODY/ANTIGEN ([place] [facility]) Routine 11/06/2022 9:28 AM EDT from Last 3 Months or Most Recently Relevant to Health Maintenance Results * SARS-CoV-2 RNA, Influenza A/B, and RSV RNA, Ql NAAT (05/19/2024 4:35 PM EDT) Influenza A PCR NEGATIVE Negative [facility] Influenza B PCR NEGATIVE Negative [facility] Resp Syncy Virus RNA Qual PCR NEGATIVE Negative [facility] SARS COV2 PCR NEGATIVE Negative [facility] Comment:All test results mus t be correlated with clinical findings.Negative results do not preclude SARS-CoV2, influenza Avirus, influenza B virus and/or RSV infectionand should not be used as the sole basis for treatment orother patient management decisions. Negative results must becombined with clinical observations, patient history, andepidemiological information.This test has not been evaluated for monitoring treatment ofinfection.This test has been authorized by the FDA under an EmergencyUse Authorization (EUA) for use by authorized laboratories.Testing performed on the [employer] GeneXpert utilizingreal-time RT-PCR.All SARS CoV2 and positive influenza A/B results arereported to [facility]. 05/19/2024 4:35 PM EDT 05/19/2024 4:42 PM EDT Generic External Data Provider LAB MICROBIOLOGY - GENERAL ORDERABLES Final Result Performing Organization Address [facility] Phone Number [facility] [address] [place] [phone] * Slide Review (05/19/2024 4:34 PM EDT) Slide Review VERIFIED [facility] 05/19/2024 4:34 PM EDT 05/19/2024 4:42 PM EDT Generic External Data Provider LAB BLOOD ORDERAB LES Final Result Performing Organization Address [facility] Number [facility] [address] [place] [phone] * High Sensitivity Troponin I (05/19/2024 4:34 PM EDT) TROPONIN I HIGH SENSITIVITY <2.7 <3.5 - 17.0 ng/L [facility] Comment:The Vela high sens itivity Troponin-I results should beused in conjunction with other diagnostic information suchas ECG, clinical observations and information, and patientsymptoms to aid in the diagnosis of IL. 05/19/2024 4:34 PM EDT 05/19/2024 4:42 PM EDT Generic External Data Provider LAB BLOOD ORDERAB LES Final Result Performing Organization Address [facility] de Phone Number [facility] [address] [place] [phone] * Beta-Hydroxybutyrate (05/19/2024 4:34 PM EDT) [facility] Beta-Hydroxybut yrate 0.15 0.02 - 0.27 mmol/L [facility] 05/19/2024 4:34 PM EDT 05/19/2024 5:14 PM EDT us Generic External Data Provider LAB BLOOD ORDERAB LES Final Result [facility] [address] [place] [phone] * (ABNORMAL) CBC auto differential (05/19/2024 4:34 PM EDT) [facility] White Blood Count 4.4(L) 4.8 - 10.8 X10*3/uL [facility] Red Blood Count 4.40 4.20 - 5.50 X10*6/uL [facility] Hemoglobin 13.5 12.0 - 16.0 g/dl [facility] Hematocrit 39.4 37.0 - 47.0 % [facility] Mean Corpuscular Volume 89.5 80.0 - 98.0 fL [facility] Mean Corpuscular Hemoglobin 30.7 27.0 - 33.0 pg [facility] Mean Corpuscular HGB Conc 34.3 31.0 - 35.0 g/dl [facility] Red Cell Distribution Width 15.9 11.0 - 16.0 % [facility] Platelet Count 63(L) 160 - 400 X10*3/uL [facility] Mean Platelet Volume 11.7 9.4 - 12.3 fL [facility] Neutrophils Percent Auto 60.7 45 - 73 % [facility] Imm Gran Pct Auto 0.2 0.0 - 0.4 % [facility] Lymphocytes Percent Auto 32.6 20 - 40 % [facility] Monocytes Percent Auto 5.1 2 - 11 % [facility] Eosinophils Percent Auto 0.9 0 - 4 % [facility] Basophils Percent Auto 0.5 0 - 2 % [facility] NRBC Pct Auto 0.0 0.0 - 0.2 /100WBC [facility] Neutrophils Absolute Auto 2.6 2.0 - 8.3 x10*3/uL [facility] Imm Gran Abs Auto 0.01 0.00 - 0.03 X10*3/uL [facility] Lymphocytes Absolute Auto 1.4 1.2 - 4.9 X10*3/uL [facility] Monocytes Absolute Auto 0.2 0.1 - 1.2 X10*3/uL [facility] Eosinophils Absolute Auto 0.0 0.0 - 0.4 X10*3/uL [facility] Basophils Absolute Auto 0.0 0.0 - 0.2 X10*3/uL [facility] NRBC Abs Auto 0.000 0.0 - 0.012 X10*3/uL [facility] 05/19/2024 4:34 PM EDT 05/19/2024 4:42 PM EDT Generic External Data Provider LAB BLOOD ORDERAB LES Edited Result - Final Performing Organization Address [facility]/ZIP Co de Phone Number [facility] [address] [place] [phone] * Magnesium (05/19/2024 4:34 PM EDT) Magnesium 2.1 1.6 - 2.6 mg/dL [facility] 05/19/2024 4:34 PM EDT 05/19/2024 5:14 PM EDT Generic External Data Provider LAB BLOOD ORDERAB LES Final Result Performing Organization Address [facility]/ZIP Co de Phone Number [facility] [address] [place] [phone] * (ABNORMAL) Lactic Acid (05/19/2024 4:34 PM EDT) Lactic Acid 3.4(HH) 0.5 - 2.0 mmol/L [facility] Comment:Critical value for t est(s): LACTA Results called to alonzo back by: EMELY Person calling: HELENE Date: 05/19/24Time: 1703 05/19/2024 4:34 PM EDT 05/19/2024 4:39 PM EDT us Generic External Data Provider LAB BLOOD ORDERAB LES Final Result [facility] [address] [place] [phone] * (ABNORMAL) Comprehensive Metabolic Panel (05/19/2024 4:34 PM EDT) Sodium 139 135 - 145 mmol/L [facility] Potassium 3.8 3.3 - 5.1 mmol/L [facility] Comment:Slight Hemolysis.Int erpret result with caution. Chloride 110(H) 96 - 108 mmol/L [facility] Carbon Dioxide 22 22 - 29 mmol/L [facility] Anion Gap 11(L) 12 - 20 [facility] Urea Nitrogen (BUN) 11 9 - 16 mg/dL [facility] Creatinine, Serum 1.00 0.5 - 1.4 mg/dL [facility] Creatinine Clr Calc Pharmacy 91.5 [facility] Comment:Provided height and weight: 167.64 cm,124 kg.eGFR (calculated from the MDRD study equation) and eCrCl(calculated from the Cockcroft-Gault equation) are based ondifferent parameters and may not yield comparable results.If eCrCl result is absurd, please check patient'sheight/weight. Estimated Glomerular Filt Rate 59 [facility] Comment:Chronic Kidney Disea se: Estimated GFR < 60 mL/min/1.33o3Lwgfzx Kidney Disease: Estimated GFR < 15 mL/min/1.73m2 Glucose 118(H) 60 - 115 mg/dL [facility] Calcium 9.6 8.4 - 10.2 mg/dL [facility] Bilirubin, Total 1.3(H) 0.0 - 1.0 mg/dL [facility] Aspartate Amino Transferase 47(H) 5 - 31 U/L [facility] Comment:Slight Hemolysis.Int erpret result with caution. Alanine Aminotransferase 24 0 - 31 U/L [facility] Total Protein 8.1(H) 6.5 - 8.0 g/dL [facility] Albumin Level 3.4(L) 3.5 - 5.0 g/dL [facility] Alkaline Phosphatase 261(H) 39 - 117 U/L [facility] 05/19/2024 4:34 PM EDT 05/19/2024 5:14 PM EDT Generic External Data Provider LAB BLOOD ORDERAB LES Final Result Performing Organization Address City/State/[facility] Co de Phone Number [facility] [address] [place] [phone] * (ABNORMAL) POCT urinalysis dipstick manually resulted (05/19/2024 3:24 PM EDT) Color, UA Yellow Clarity, UA Cloudy Glucose, UA Negative Bilirubin, UA Negative Ketones, UA Negative Spec Grav, UA 1.025 Blood, UA Positive(A) Negative, None Detected pH, UA 6.0 Protein, UA 3+ 500+++ Urobilinogen, UA >=8.0 Leukocytes, UA Comment:small Nitrite, UA Positive(A) Negative, None Detected Appearance, UA yellow QC Media Lot # [id number] Lot# Expiration Date Urine 05/19/2024 3:24 PM EDT Gretchen Romano MD POINT OF CARE TEST ENTER/E DIT ORDERABLES Final Result * (ABNORMAL) Bacterial Vaginosis Panel (03/04/2024 12:59 PM EST) TRICHOMONAS VAGINALIS DETECTION BY PCR NOT DETECTED Not Detect [facility] BACTERIAL VAGINOSIS DETECTION BY PCR NEGATIVE Negative [facility] Comment:The BV organism targ ets of the Xpert Xpress MVP test can becommensal in women; Xpert Xpress MVP positive results forbacterial vaginosis should be considered in conjunction withother clinical and patient information to determine thedisease status. Organisms that are not detected by the XpertXpress MVP test have also been reported to be associatedwith BV and aerobic vaginitis.The Xpert Xpress MVP test performance has not been evaluatedin patients under the age of 14. [employer] DETECTION BY PCR NOT DETECTED Not Detect [facility] Alejandrina glab krusei PCR DETECTED(A) Not Detect [facility] Swab Vaginal structure / Unknown 03/04/2024 12:59 PM EST 03/04/2024 5:18 PM EST us Filomena Mcclelland MD LAB MICROBIOLOGY - GENER AL ORDERABLES Final Result Performing Organization Address City/[facility]/ZIP Co de Phone Number [facility] [address] [place] [phone] * Herpes Simplex Virus Culture with Reflex Typing (03/04/2024 12:59 PM EST) HSV Culture/Type SEE NOTE [facility] Comment:HERPES SIMPLEX VIRUS CULTURE W/RFL TO TYPING Micro Number: [id number] Test Status: Final Specimen Source: [facility] Specimen Quality: Adequate HSV Culture: Not Isolated 03/04/2024 12:5 9 PM EST 03/04/2024 5:15 PM EST Narrative [facility] - 03/19/2024 12:25 PM EST [facility]IA us Filomena Mcclelland MD LAB MICROBIOLOGY - GENER AL ORDERABLES Final Result Performing Organization Address [facility]/ZIP Co de Phone Number [facility] [address] [place] [phone] * Chlamydia/N. Gonorrhoeae RNA, TMA, Urogenitial (03/04/2024 12:59 PM EST) CT PCR NOT DETECTED Not Detect. [facility] Comment:A not detected test result does not exclude the possibilityof infection because test results can be affected byimproper specimen collection, concurrent antibiotic therapy,or the number of organisms in the specimen which may bebelow the sensitivity of the test. As with many diagnostictests, results from the Xpert CT/NG assay should beinterpreted in conjunction with other laboratory andclinical data available to the clinician.Xpert CT/NG performance has not been evaluated in patientsless than 14 years of age. The assay should not be used forthe evaluationof suspected sexual abuse or for other medico-legalindications. Additional testing is recommended in anycircumstance when false positive or false negative resultscould lead to adverse medical, social or psychologicalconsequences. NG PCR NOT DETECTED Not Detect. [facility] Comment:A not detected test result does not exclude the possibilityof infection because test results can be affected byimproper specimen collection, concurrent antibiotic therapy,or the number of organisms in the specimen which may bebelow the sensitivity of the test. As with many diagnostictests, results from the Xpert CT/NG assay should beinterpreted in conjunction with other laboratory andclinical data available to the clinician.Xpert CT/NG performance has not been evaluated in patientsless than 14 years of age. The assay should not be used forthe evaluationof suspected sexual abuse or for other medico-legalindications. Additional testing is recommended in anycircumstance when false positive or false negative resultscould lead to adverse medical, social or psychologicalconsequences. Swab (Vaginal Swab) 03/04/2024 12:59 PM EST 03/04/2024 5:18 PM EST Narrative [facility] - 03/05/2024 3:44 PM EST Vaginal us Filomena Mcclelland MD LAB MICROBIOLOGY - GENER AL ORDERABLES Final Result [facility] [address] [place] [phone] * (ABNORMAL) Lipid Panel, Standard (02/18/2024 12:20 PM EST) Triglycerides 110 <150 mg/dL [facility] Comment:Desirable Triglyceri de: less than 150 mg/dLBorderline High Triglyceride 150-199 mg/dLHigh Triglyceride: 200-499 mg/dLVery High Triglyceride: greater than or equal to 5OO mg/dL Cholesterol 52 <200 mg/dL [facility] Comment:Desirable Cholestero l: less than 200 mg/dLBorderline High Cholesterol: 200-239 mg/dLHigh Cholesterol: greater than 239 mg/dL LDL Cholesterol Calculated 13 <100 mg/dL [facility] Comment:Desirable LDL: less than 100 mg/dLNear Optimal/Above Optimal LDL: 110- 129 mg/dLBorderline High LDL: 130-159 mg/dLHigh LDL: 160-189 mg/dLVery High LDL: greater than or equal to 190 mg/dL HDL Cholesterol 17(L) >40 mg/dL [facility] Comment:Desirable HDL: great er than 40 mg/dL Note: This HDL assay may give artificially low results in patients with liver disease. Blood Venous blood specimen / Unknown 02/18/2024 12:20 PM EST 02/18/2024 1:04 PM EST [facility] LAB BLOOD ORDERABLES Final Re sult [facility] [address] [place] [phone] * (ABNORMAL) POCT HGB A1C (02/18/2024 11:43 AM EST) Hemoglobin A1C 12.1(A) 4.0 - 6.0 % Blood 02/18/2024 11:4 3 AM EST [facility] POINT OF CARE TEST ENTER/EDIT ORDERABLES Final Result * (ABNORMAL) Albumin, Random Urine W/Creatinine (09/18/2023 12:18 PM EDT) Creatinine, Urine 24.90 mg/dL [facility] Microalbumin Urine 43.0 mg/L [facility] Microalbum Creatinine Ratio Ur 172.6(H) <30 ug/mg cr [facility] Comment:Albumin/Creatinine R atio Reference Ranges: Normal: < 30 ug/mg creatinine Microalbuminuria: 30 - 300 ug/mg creatinineClinical Albuminuria: > 300 ug/mg creatinine 09/18/2023 12:1 8 PM EDT 09/18/2023 4:01 PM EDT [facility] LAB URINE ORDERABLES Final Re sult Performing Organization Address [facility] Co de Phone Number [facility] [address] [place] [phone] * HIV Ab/Ag (HAO MADSEN) (11/06/2022 9:28 AM EDT) HIV AB/AG Nonreactive Nonreactive [facility] Comment:HIV-1 p24 Ag and/or HIV-1/HIV-2 Ab not detected.A test result that is nonreactive does not exclude thepossibility of exposure to or infection with HIV-1 and/orHIV-2. Nonreactive results in this assay for individualswith prior exposure to HIV-1 and/or HIV-2 may be due toantigen and antibody levels that are below the limit ofdetection of this assay.The [employer] HIV Ag/Ab Combo assay result andsupplemental assay results should be interpreted inconjunction with the patient's clinical presentation,history and other laboratory results. If the results areinconsistent with clinical evidence, additional testing issuggested to confirm the result. 11/06/2022 9:28 AM EDT 11/06/2022 5:17 PM EDT [facility] LAB BLOOD ORDERABLES Final Re sult Performing Organization Address [facility]/ZIP Co de Phone Number [facility] [address] [place] [phone] * Hepatitis Panel, General (11/06/2022 9:28 AM EDT) Hepatitis A IgM Nonreactive Nonreactive [facility] Comment:IgM antibodies to ZURITA V not detected; does not exclude earlyacute or recovered HAV infection. ~Hepatitis B Surface Antibody NONREACTIVE Nonreactive [facility] Comment:Nonreactive: < 8.00 mIU/mL Hepatitis B Core Antibody Nonreactive Nonreactive [facility] Hepatitis C Antibody Nonreactive Nonreactive [facility] Comment:Antibodies to HCV no t detected; does not exclude early acuteHCV infection. Hepatitis B Surface Ag Negative Negative [facility] Blood 11/06/2022 9:28 AM EDT 11/06/2022 5:17 PM EDT [facility] DRILL RUNNER HELPER LAB BLOOD ORDERABLES Final Re sult Performing Organization Address City/State/[facility] Co de Phone Number [facility] [address] [place] [address] [phone] from Last 3 Months or Most Recently Relevant to Health Maintenance Insurance [facility] [address] [place] [address] Care Teams Websphere Commerce Developer Relationship Specialty Start Date End Date MamiAngeliqueSHELLP [address] [place] [address] PCP - General Family Medicine 11/08/22 Vera Mcgovern, JessicaD [address] [place] [address] Pharmacist Internal Medicine 08/20/23
--- OUTSIDE RECORDS SUMMARY | 2024-05-19 17:53 | XMS_ITS | Encounter Summary ---
Author Organization [employer] Address [address] [facility] 7t [place] [address] Care Team Providers Care Technology Applications Consultant Name Role Phone Angelique Bolaños [facility] Primary Care Provider [phone] Vera Mcgovern PharmD Unavailable [phone] Reason for Visit * Reason Comments Med Refill Encounter Details Date Type Department Care Team ([facility] st Contact Info) Description 12/04/2022 Refill [facility] [address] [place], [place] [phone] Jen Sousa FNP 505 [place], [place] [phone] Type 2 diabetes mellitus with hyperglycemia, with long-term current use of insulin ([facility]) Social History Tobacco Use Types Packs/Day Years Used Date Smoking Tobacco: Every Day Cigarettes Smokeless Tobacco: Never Alcohol Use Standard Drinks/Week Comments Never 0 (1 standard drink = 0.6 oz pur e alcohol) Depression Answer Date Recorded Patient Health Questionnaire-9 Score 24 11/06/2022 Housing Stability Answer Date Recorded What is [...] 1:00 PM EDT Medication Management [facility] 230 [place] [address] Sophie Zapata PharmD [address] [place] [address] 06/24/2024 3:30 PM EDT Office Visit [facility] [address] [place] [address] Anaid Núñez, OD 230 [place] [address] documented as of this encounter Visit Diagnoses Diagnosis Type 2 diabetes mellitus with hyperglycemia, with long-term current use of insulin ([facility]) documented in this encounter Additional Health Concerns Assessment Noted Time PHQ-9 Depression Total Score: 24 023 3:16 PM EDT documented as of this encounter Care Teams Technology Applications Consultant Relationship Specialty Start Date End Date Angelique Bolaños FNP [address] [place] [address] PCP - General Family Medicine 11/08/22 Vera Mcgovern, JessicaD [address] [place] [address] Pharmacist Internal Medicine 08/20/23 documented as of this encounter
--- OUTSIDE RECORDS SUMMARY | 2024-05-19 17:53 | XMS_ITS | Encounter Summary ---
Author Organization [employer] Address [address] [place] [address] 7t [place] [address] Care Team Providers Care Assurance Engineer Name Role Phone Jen Sousa [facility] Primary Care Provider [phone] Angelique Bolaños MEMBERSHIP ADMINISTRATOR Primary Care Provider [phone] Vera Mcgovern PharmD Unavailable [phone] Reason for Visit * Reason Comments Med Refill Encounter Details Date Type Department Care Team ([facility] Contact Info) Description 02/27/[address] [facility] [address] [place], [place] [phone] Jen Sousa FNP [address] [place], [place] [phone] Med Refill Social History Tobacco Use Types Packs/Day Years [...] suspected to have Coronavirus/COVID-19? No / Unsure 01/29/2022 2:24 PM EST documented as of this encounter Plan of Treatment Upcoming Encounters Date Type Department Care Team ([facility] Contact Info) Description 05/24/2024 1:00 PM EDT Medication Management [facility] MED[facility] [address] [place] [address] Sophie Zapata, JessicaD [address] [place] [address] 06/24/2024 3:30 PM EDT Office Visit [facility] OPTOMETRY [address] [place] [address] Anaid Núñez, OD 230 [place] [address] documented as of this encounter Visit Diagnoses Diagnosis Type 2 diabetes mellitus with hyperglycemia, with long-term current use of insulin ([facility])- Primary documented in this encounter Care Teams Assurance Engineer Relationship Specialty Start Date End Date Jen Sousa FNP [address] [place] [address] PCP - General Family Medicine 10/04/21 11/07/22 MontroseAngelique FNP [address] [place] [address] PCP - General Family Medicine 11/08/22 Vera Mcgovern, JessicaD [address] [place] [address] Pharmacist Internal Medicine 08/20/23 documented as of this encounter
--- OUTSIDE RECORDS SUMMARY | 2024-05-19 17:53 | XMS_ITS | Encounter Summary ---
Author Organization [employer] Address [address] [place] [address] 7t [place] [address] Care Team Providers Care Sustainability Communicator Name Role Phone Jen Sousa [facility] Primary Care Provider [phone] CorsicaAngelique SCREEN MAKING SUPERVISOR Primary Care Provider [phone] Vera Mcgovern PharmD Unavailable [phone] Reason for Visit * Reason Comments Med Refill Encounter Details Date Type Department Care Team (Late st Contact Info) Description 10/15/2022 Refill [facility] [address] [place], [place] [phone] Jen Sousa SCREEN MAKING SUPERVISOR [address] [place], [place] [phone] Chronic midline low back pain with sciatica, sciatica laterality unspecified Social History Tobacco Use Types Packs/Day Years [...] encounter Miscellaneous Notes * Telephone Encounter - Antoinette Arechiga - 10/24/2022 3:42 PM EDT Tc from pts daughter requesting status on message below. * Telephone Encounter - Samantha Patricia - 10/22/2022 3:35 PM EDT Tc from pt requesting a refill for Tramadol 50 mg documented in this encounter Plan of Treatment Upcoming Encounters Date Type Department Care Team (Late st Contact Info) Description 05/24/2024 1:00 PM EDT Medication Management [facility] [address] [place] [address] Sophie Zapata, JessicaD [address] [place] [address] 06/24/2024 3:30 PM EDT Office Visit [facility] [address] [place] [address] Wilton, Anaid, OD 230 [place] [address] documented as of this encounter Visit Diagnoses Diagnosis Chronic midline low back pain with sciatica, sciatica laterality unspecified documented in this encounter Care Teams Sustainability Communicator Relationship Specialty Start Date End Date Jen Sousa FNP [address] [place] [address] PCP - General Family Medicine 10/04/21 11/07/22 CorsicaAngelique FNP [address] [place] [address] PCP - General Family Medicine 11/08/22 Vera Mcgovern PharmD [address] [place] [address] Pharmacist Internal Medicine 08/20/23 documented as of this encounter
--- OUTSIDE RECORDS SUMMARY | 2024-05-19 17:53 | XMS_ITS | Encounter Summary ---
Author Organization [email or web address] Address [address] [place] [address] 7t [place] [address] Care Team Providers Care Block Piler Name Role Phone [place] [facility] Primary Care Provider [phone] Vera Mcgovern PharmD Unavailable [phone] Reason for Visit * Reason Onset Date Comments Referral 12/24/2022 C3CM- f/u GI ref erral Care Coordination 12/24/2022 Encounter Details Date Type Department Care Team ([facility] st Contact Info) Description 12/24/2022 Telephone [facility] MED[facility] [address] [place] [address] [place] Angelique, [facility] [address] [place], [place] [phone] Referral (C3CM- f/u GI referral); Care Coordination Social History Tobacco Use Types Packs/Day Years [...] encounter Miscellaneous Notes * Telephone Encounter - Ruslan Cheng RN - 12/25/2022 11:30 AM EST C3/CM Ruslan Cheng placed outbound call to [facility] to f/u on status of referral. Per note from 12/24/22 in EPIC, pt scheduled for visit in June and requesting to be scheduled sooner. RN spoke with Star at [facility] who states that, unfortunately, they are booking further out than that. He has added pt to a cancellation list and will contact pt if there is a cancellation. Message forwarded to PCP toinform. * Telephone Encounter - Odalis Nagy - 12/24/2022 3:51 PM EST Tc from pt requesting a call from a nurse or provider in regards to the referral for Gastroenterology made due to her Hepatomegaly. Pt states that appt given due to urgent was given for [facility]. Pt is requesting if it is possible to advance appt for this year. Please contact pt at [phone] documented in this encounter Plan of Treatment Upcoming Encounters Date Type Department Care Team (Late st Contact Info) Description 05/24/2024 1:00 PM EDT Medication Management [facility] MED[facility] [address] [place] [address] Sophie Zapata, Maddy 230 [place] [address] 06/24/2024 3:30 PM EDT Office Visit [facility] OPTOMETRY [address] [place] [address] Wilton, Anaid, OD 230 [place] [address] documented as of this encounter Visit Diagnoses Not on filedocumented in this encounter Additional Health Concerns Assessment Noted Time PHQ-9 Depression Total Score: 24 023 3:37 PM EDT documented as of this encounter Care Teams Block Piler Relationship Specialty Start Date End Date Angelique Bolaños FNP [address] [place] [address] PCP - General Family Medicine 11/08/22 Vera Mcgovern, JessicaD [address] [place] [address] Pharmacist Internal Medicine 08/20/23 documented as of this encounter
--- OUTSIDE RECORDS SUMMARY | 2024-05-19 17:54 | XMS_ITS | Encounter Summary ---
Author Organization [employer] Address [address] [place] [address] 7t [place] [address] Care Team Providers Care Fiberglass Boat Assembly Supervisor Name Role Phone [facility] Primary Care Provider [phone] Vera Mcgovern PharmD Unavailable [phone] Reason for Visit * Reason Onset Date Comments Nurse Triage 05/17/2024 Encounter Details Date Type Department Care Team (Late st Contact Info) Description 05/17/2024 Telephone [facility] MEDICINE 230 [place] [address] [facility] [address] [place] [address] Nurse Triage Social History Tobacco Use Types [...] t he electric, gas, oil or water [employer] threatened to shut off services in your [...] Miscellaneous Notes * Telephone Encounter - Tiffanie Yeung, GARTH - 05/17/2024 3:55 PM EDT Triage call returned to patient who reports 3-4 days of foul smelling urine. Low back discomfort that goes from low back up into her spine and head causing head pain. No fever. No blood or pus in urine. Patient reports not on any pain medications as she does not have any. Fluid intake good. Disposition reviewed with patient in agreement with plan. No PCP or Team appts. Available at time of call. [facility] Walk In Center hours and availability provided for patient evaluation. Triage nurse informed thepatient may have a wait of 1-2 hours because Walk In Clinic may have delays due to patient volume or symptom acuity. Insurance verified as active. Patient reports that she will try to come to [facility] but will call in AM to see if cancellation slot may be open for appt. Reviewed with patient home care recommendations and reasons to call back. Pt verbalized understanding and agrees. Protocol Used: Urinary Symptoms (Adult) Protocol-Based Disposition: See in Office or Video Visit Today Video visit not offered Positive Triage Questions: * Side (flank) or lower back pain present * Bad or foul-smelling urine * All higher-acuity triage questions were negative Care Advice Discussed: * Reasons To Call Back - Fever occurs - Pain or burning with urination - Unable to urinate and bladder feels full - You become worse * Telephone Encounter - Neal Foote - 05/17/2024 3:41 PM EDT Symptoms: Foot or Ankle Pain - Not From Injury, Knee Pain - Not From Injury, Abdominal Pain - Female - Not , Back Pain - Not From Injury, Headache, Urine Symptoms Outcome: Talk to a nurse or provider within 15 minutes Reason: Severe pain now The caller accepted this outcome. Contact pt daughter at [phone] documented in this encounter Plan of Treatment Upcoming Encounters Date Type Department Care Team (Late st Contact Info) Description 05/24/2024 1:00 PM EDT Medication Management [facility] MEDICINE [address] [place] [address] Sophie Zapata PharmD [address] [place] [address] 06/24/2024 3:30 PM EDT Office Visit [facility] OPTOMETRY [address] [place] [address] nAaid Núñez, OD 230 [place] [address] documented as of this encounter Goals Goal [...] documented as of this encounter Care Teams [employer] Boat Assembly Supervisor Relationship Specialty Start Date End Date Angelique Bolaños FNP [address] [place] [address] PCP - General Family Medicine 11/08/22 Vera Mcgovern PharmD [address] [place] [address] Pharmacist Internal Medicine 08/20/23 documented as of this encounter
--- OUTSIDE RECORDS SUMMARY | 2024-05-19 17:54 | XMS_ITS | Encounter Summary ---
Author Organization [employer] Address [address] [place] [address] 7t [place] [address] Care Team Providers Care Outbound Sales Specialist Name Role Phone Angelique Bolaños TRANSPORTATION PLANNING TECHNICIAN Primary Care Provider [phone] Vera Mcgovern PharmD Unavailable [phone] Reason for Visit * Reason Comments Flank Pain Encounter Details Date Type Department Care Team (Late st Contact Info) Description 05/19/2024 3:00 PM EDT Office Visit [facility] 230 [place], [place] [phone] Gretchen Romano MD [address] [place] [address] Pyuria (Primary Dx); Continuous severe abdominal pain; Acute flank pain; Thrombocytopenia (CMS/HCC); Elevated lipase; Acute kidney injury (CMS/HCC) Social History Tobacco Use Types Packs/Day Years [...] AM EDT documented as of this encounter Last Filed Vital Signs Vital Sign Reading [...] oz) 05/19/2024 3:09 P M EDT Height - - Body Mass Index 42.73 03/04/2024 12:22 PM EST documented in this encounter Progress Notes * Meseret Matos - 05/19/2024 3:00 PM EDT Subjective Patient ID: Billie Martínez is a 48 y.o. female who presents to walk in clinic for Flank Pain. Seen at [facility] ED 05/17/24 for lower abdominal and left flank pain. Pt reported N/V/D at home and unable to tolerate PO. Hx of non-alcoholic liver cirrhosis. Pt also states I might have a bladder infection. Denies hematuria, states she has odor to urine. Labs revealed WBC 5.2, hgb 13.1, platelets 64, Lipase 95, creatinine 1.23, alk phos 288, AST 35, ALT 26, bilirubin 1.2. Urine culture showed mixed sherley, large leukocytes and nitrite positive, 293 WBC, and 16.8 RBC. HPI Review of Systems Constitutional: Negative for fever and unexpected weight change. Respiratory: Negative for shortness of breath. Cardiovascular: Negative for chest pain. Gastrointestinal: Positive for abdominal pain and nausea. Genitourinary: Positive for flank pain. Negative for difficulty urinating. Objective Visit Vitals BP 135/78 (BP Location: Left arm, Patient Position: Sitting, BP Cuff Size: Adult) Pulse 81 Temp 97.4 ??F (36.3 ??C) (Oral) Resp 20 Wt 272 lb 12.8 oz (124 kg) SpO2 98% BMI 42.73 kg/m?? Smoking Status Every Day BSA 2.42 m?? Physical Exam Constitutional: General: She is awake. She is in acute distress. Appearance: Normal appearance. She is ill-appearing. Cardiovascular: Rate and Rhythm: Normal rate and regular rhythm. Heart sounds: Normal heart sounds. Pulmonary: Effort: Pulmonary effort is normal. Breath sounds: Normal breath sounds. Abdominal: Tenderness: There is abdominal tenderness (flank) in the right upper quadrant. There is right CVA tenderness and left CVA tenderness. Neurological: General: No focal deficit present. Mental Status: She is alert. Psychiatric: Behavior: Behavior normal. Behavior is cooperative. Problem List Items Addressed This Visit Pyuria - Primary Seen at [facility] ED 05/17/24 for lower abdominal and left flank pain. Labs with urine culture showing 293 WBC. Presents today hemodynamically stable, but ill-appearing and in mild distress. Will send via ambulance to [facility] ED for further evaluation. Relevant Orders POCT urinalysis dipstick manually resulted Continuous severe abdominal pain Left flank pain, RUQ pain on exam. + CVA tenderness. Given pyuria and acute kidney injury on labs from [facility] ED visit 05/17/24, suspect possible acute pyelonephritis. Presents today hemodynamically stable, but ill-appearing and in mild distress. Will send via ambulance to [facility] ED for further evaluation. Acute flank pain Left flank pain on exam. + CVA tenderness. Given pyuria and acute kidney injury on labs from [facility] ED visit 05/17/24, suspect possible acute pyelonephritis. Presents today hemodynamically stable, but ill-appearing and in mild distress. Will send via ambulance to [facility] ED for further evaluation. Thrombocytopenia (CMS/HCC) Like acute on chronic, worsening due to underlying bacterial infection. Pt was seen at [facility] ED 05/17/24 for lower abdominal and left flank pain. Labs showing platelets of 64. Presents today hemodynamically stable, but ill-appearing and in mild distress. Will send via ambulance to [facility] ED for further evaluation. Elevated lipase Pt was seen at [facility] 05/17/24 for lower abdominal and left flank pain. Labs showing lipase of 95. Presents today hemodynamically stable, but ill-appearing and in mild distress. Will send via ambulance to [facility] ED for further evaluation. Acute kidney injury (CMS/HCC) Seen at [facility] ED 05/17/24 for lower abdominal and left flank pain. Labs with creatinine of 1.23. Presents today hemodynamically stable, but ill-appearing and in mild distress. Will send via ambulance to [facility] ED for further evaluation. Based on significant lab findings from [facility](listed in HPI) and appearance of severe discomfort today. Will send pt to the ED via ambulance for further work- up, suspecting pyelonephritis, diverticulitis, etc. I, Meseret Matos, am serving as a scribe to document services personally performed by Dr. Baca, based on the patient's response to questions by provider and providers statements to me. documented in this encounter Miscellaneous Notes * Assessment & Plan Note - Meseret Matos - 05/19/2024 3:29 PM EDTAssociated Problem(s): Elevated lipase Pt was seen at [facility] ED 05/17/24 for lower abdominal and left flank pain. Labs showing lipase of 95. Presents today hemodynamically stable, but ill-appearing and in mild distress. Will send via ambulance to [facility] ED for further evaluation. * Assessment & Plan Note - Meseret Matos - 05/19/2024 3:29 PM EDTAssociated Problem(s): Thrombocytopenia (CMS/HCC) Like acute on chronic, worsening due to underlying bacterial infection. Pt was seen at [facility] ED 05/17/24 for lower abdominal and left flank pain. Labs showing platelets of 64. Presents today hemodynamically stable, but ill-appearing and in mild distress. Will send via ambulance to [facility] ED for further evaluation. * Assessment & Plan Note - Meesret Matos - 05/19/2024 3:27 PM EDTAssociated Problem(s): Acute kidney injury (CMS/HCC) Seen at [facility] ED 05/17/24 for lower abdominal and left flank pain. Labs with creatinine of 1.23. Presents today hemodynamically stable, but ill-appearing and in mild distress. Will send via ambulance to [facility] ED for further evaluation. * Assessment & Plan Note - Meseret Matos - 05/19/2024 3:27 PM EDTAssociated Problem(s): Pyuria Seen at [facility] ED 05/17/24 for lower abdominal and left flank pain. Labs with urine culture showing 293 WBC. Presents today hemodynamically stable, but ill-appearing and in mild distress. Will send via ambulance to [facility] ED for further evaluation. * Assessment & Plan Note - Meseret Matos - 05/19/2024 3:26 PM EDTAssociated Problem(s): Continuous severe abdominal pain Left flank pain, RUQ pain on exam. + CVA tenderness. Given pyuria and acute kidney injury on labs from [facility] ED visit 05/17/24, suspect possible acute pyelonephritis. Presents today hemodynamically stable, but ill-appearing and in mild distress. Will send via ambulance to [facility] ED for further evaluation. * Assessment & Plan Note - Meseret Matos - 05/19/2024 3:26 PM EDTAssociated Problem(s): Acute flank pain Left flank pain on exam. + CVA tenderness. Given pyuria and acute kidney injury on labs from [facility] ED visit 05/17/24, suspect possible acute pyelonephritis. Presents today hemodynamically stable, but ill-appearing and in mild distress. Will send via ambulance to [facility] ED for further evaluation. documented in this encounter Plan of Treatment Upcoming Encounters Date Type Department Care Team (Late st Contact Info) Description 05/24/2024 1:00 PM EDT Medication Management [facility] MEDICINE [address] [place] [address] Sophie Zapata, PharmD [address] [place] [address] 06/24/2024 3:30 PM EDT Office Visit [facility] OPTOMETRY [address] [place] [address] Wilton, Anaid, OD 230 [place] [address] documented as of this encounter Goals Goal Patient Goal Type Associated Problems Recent Progress Patient-Stated? Author Hemoglobin A1c < 7 Result Component 12.1(02/17/19 25 11:43 AM EST) No Vera Bean, PharmD Record your blood sugar as directed Result Component No Vera Bean PharmD documented as of this encounter Procedures Procedure Name Priority Date/Time Associated Diagnosis Comments POCT URINALYSIS DIPSTICK Routine 05/19/2024 3:24 PM EDT Pyuria documented in this encounter Results * (ABNORMAL) POCT urinalysis dipstick manually resulted [...] CARE TEST ENTER/E DIT ORDERABLES Final Result documented in this encounter Visit Diagnoses Diagnosis Pyuria- Primary Other nonspecific finding on examination of urine Continuous severe abdominal pain Acute flank pain Thrombocytopenia (CMS/HCC) Unspecified thrombocytopenia Elevated lipase Acute kidney injury (CMS/HCC) documented in this encounter Additional Health Concerns Assessment Noted Time PHQ-9 Depression Total Score: 0 02/17/19 25 11:42 AM EST documented as of this encounter Care Teams Outbound Sales Specialist Relationship Specialty Start Date End Date Angelique Bolaños FNP [address] [place] [address] PCP - General Family Medicine 11/08/22 Vera Mcgovern PharmD [address] [place] [address] Pharmacist Internal Medicine 08/20/23 documented as of this encounter
--- OUTSIDE RECORDS SUMMARY | 2024-05-19 17:54 | XMS_ITS | Encounter Summary ---
Author Organization [employer] Address [address] [place] [address] 7t [place] [address] Care Team Providers Care Product Development Carpenter Name Role Phone Jen Sousa FARM OPERATIONS TECHNICAL DIRECTOR Primary Care Provider [phone] Angelique Bolaños FARM OPERATIONS TECHNICAL DIRECTOR Primary Care Provider [phone] Vera Mcgovern PharmD Unavailable [phone] Encounter Details Date Type Department Care Team (Late st Contact Info) Description 01/25/2022 Orders Only [facility] MED & PEDS [address] [place] [address] Rody Campbell LPN Social History Tobacco Use [...] PM EDT Medication Management [facility] MEDICINE [address] [place] [address] Sophie Zapata, PharmD [address] [place] [address] 06/24/2024 3:30 PM EDT Office Visit [facility] OPTOMETRY [address] [place] [address] Anaid Núñez, OD 230 [place] [address] documented as of this encounter Visit Diagnoses Not on filedocumented in this encounter Care Teams Product Development Carpenter Relationship Specialty Start Date End Date Jen Sousa FNP [address] [place] [address] PCP - General Family Medicine 10/04/21 11/07/22 [place] FNP [address] [place] [address] PCP - General Family Medicine 11/08/22 Vera Mcgovern, JessicaD [address] [place] [address] Pharmacist Internal Medicine 08/20/23 documented as of this encounter
--- OUTSIDE RECORDS SUMMARY | 2024-05-19 17:54 | XMS_ITS | Encounter Summary ---
Author Organization [employer] Address [address] [place] [address] 7 [place] [address] Care Team Providers Care Rfid Analyst Name Role Phone Jen Sousa [facility] Primary Care Provider [phone] Angelique Bolaños CHILD CARE WORKER Primary Care Provider [phone] Vera Mcgovern PharmD Unavailable [phone] Encounter Details Date Type Department Care Team (Late st Contact Info) Description 01/25/2022 Orders Only [facility] MEDICINE [address] [place] [address] Martha Santana, TERE Social History Tobacco Use Types Packs/Day [...] 1:00 PM EDT Medication Management [facility] MEDICINE [address] [place] [address] Sophie Zapata, PharmD [address] [place] [address] 06/24/2024 3:30 PM EDT Office Visit [facility] OPTOMETRY [address] [place] [address] Anaid Núñez, OD 230 [place] [address] documented as of this encounter Visit Diagnoses Not on filedocumented in this encounter Care Teams Rfid Analyst Relationship Specialty Start Date End Date Jen Sousa FNP [address] [place] [address] PCP - General Family Medicine 10/04/21 11/07/22 [place] FNP [address] [place] [address] PCP - General Family Medicine 11/08/22 Vera Mcgovern PharmD [address] [place] [address] Pharmacist Internal Medicine 08/20/23 documented as of this encounter
--- OUTSIDE RECORDS SUMMARY | 2024-05-19 17:54 | XMS_ITS | Encounter Summary ---
Author Organization [employer] Address [address] [place] [address] 7t [place] [address] Care Team Providers Care Metal Stamping Machine Operator Name Role Phone [facility] Primary Care Provider [phone] Vera Mcgovern PharmD Unavailable [phone] Reason for Visit * Reason Comments Care Management C3CM- Initial assess ment/enrollment Encounter Details Date Type Department Care Team (Late st Contact Info) Description 05/14/2024 Patient Outreach [facility] MEDICINE [address] [place] [address] [facility] [address] [place] [address] Care Management (C3- Initial assessment/enrollmen t) Social History Tobacco Use Types Packs/Day Years [...] the past 12 months, has t he [employer], gas, oil or water company threatened to [...] Description 05/24/2024 1:00 PM EDT Medication Management [facility] MEDICINE [address] [place] [address] Sophie Zapata PharmD [address] [place] [address] 06/24/2024 3:30 PM EDT Office Visit [facility] OPTOMETRY [address] [place] [address] Wilton, Anaid, OD [address] [place] [address] documented as of this encounter Goals Goal Patient Goal Type Associated Problems Recent Progress Patient-Stated? Author Hemoglobin A1c < 7 Result Component 12.1(02/17/19 11:43 AM EST) No Vera Bean PharmJuan Record your blood sugar as directed Result Component No Piers-Gambl e, Vera, PharmD documented as of this encounter Visit Diagnoses Not on filedocumented in this encounter Additional Health Concerns Assessment Noted Time PHQ-9 Depression Total Score: 0 02/17/19 25 11:42 AM EST documented as of this encounter Care Teams Metal Stamping Machine Operator Relationship Specialty Start Date End Date Angelique BolañosJESS [address] [place] [address] PCP - General Family Medicine 11/08/22 Vera Mcgovern, PharmD [address] [place] [address] Pharmacist Internal Medicine 08/20/23 documented as of this encounter
--- OUTSIDE RECORDS SUMMARY | 2024-05-19 17:54 | XMS_ITS | Encounter Summary ---
Author Organization [employer] Address [address] [facility] 7t [place] [address] Care Team Providers Care Principal Examiner Name Role Phone Mami Angelique MERCHANDISING REPRESENTATIVE Primary Care Provider [phone] Vera Mcgovern PharmD Unavailable [phone] Encounter Details Date Type Department Care Team (Late st Contact Info) Description 05/19/2024 Orders Only GENERIC EXTERNAL DATA DEPARTMENT Provider, Generic External Data Social History Tobacco Use Types Packs/Day Years [...] Description 05/24/2024 1:00 PM EDT Medication Management [facility] MEDICINE [address] [place] [address] Sophie Zapata, PharmD [address] [place] [address] 06/24/2024 3:30 PM EDT Office Visit [facility] OPTOMETRY [address] [place] [address] Wilton, Anaid, OD 230 [place] [address] documented as of this encounter Goals Goal Patient Goal Type Associated Problems Recent Progress Patient-Stated? Author Hemoglobin A1c < 7 Result Component 12.1(02/17/19 11:43 AM EST) No Vera Bean, PharmD Record your blood sugar as directed Result Component No Vera Bean, PharmD documented as of this encounter Procedures Procedure Name Priority Date/Time Associated Diagnosis Comments SARS COV2/INFLUENZA A/B AND RSV RNA QL NAAT Routine 05/19/2024 4:35 PM EDT SLIDE REVIEW Routine 05/19/2024 4:34 PM EDT HIGH SENSITIVITY TROPONIN I Routine 05/19/2024 4:34 PM EDT BETA-HYDROXYBUTYRATE Routine 05/19/2024 4:34 PM EDT CBC WITH AUTO DIFFERENTIAL Routine 05/19/2024 4:34 PM EDT MAGNESIUM Routine 05/19/2024 4:34 PM EDT LACTIC ACID Routine 05/19/2024 4:34 PM EDT COMPREHENSIVE METABOLIC PANEL Routine 05/19/2024 4:34 PM EDT documented in this encounter Results * SARS-CoV-2 RNA, Influenza A/B, and RSV RNA, Ql NAAT (05/19/2024 4:35 PM EDT) Influenza A PCR NEGATIVE Negative [facility] Influenza B PCR NEGATIVE Negative [facility] Resp Syncy Virus RNA Qual PCR NEGATIVE Negative [facility] SARS COV2 PCR NEGATIVE Negative [facility] Comment:All test results mus t be [...] use by authorized laboratories.Testing performed on the [email or web address] GeneXpert utilizingreal-time RT-PCR.All SARS CoV2 and positive influenza A/B results arereported to [facility]. 05/19/2024 4:35 PM EDT 05/19/2024 4:42 PM EDT us Generic External Data Provider LAB MICROBIOLOGY - GENERAL ORDERABLES Final Result [facility] [address] [place] [phone] * Slide Review (05/19/2024 4:34 PM EDT) Slide Review VERIFIED [facility] 05/19/2024 4:34 PM EDT 05/19/2024 4:42 PM EDT Generic External Data Provider LAB BLOOD ORDERAB LES Final Result Performing Organization Address City/[facility]/ZIP Co de Phone Number [facility] [address] [place] [phone] * Beta-Hydroxybutyrate (05/19/2024 4:34 PM EDT) Beta-Hydroxybut yrate 0.15 0.02 - 0.27 mmol/L [facility] 05/19/2024 4:34 PM EDT 05/19/2024 5:14 PM EDT us Generic External Data Provider LAB BLOOD ORDERAB LES Final Result Performing Organization Address [facility] Co de Phone Number [facility] [address] [place] [phone] * Magnesium (05/19/2024 4:34 PM EDT) Magnesium 2.1 1.6 - 2.6 mg/dL [facility] 05/19/2024 4:3 4 PM EDT 05/19/2024 5:14 PM EDT Generic External Data Provider LAB BLOOD ORDERAB LES Final Result Performing Organization Address [facility] Co de Phone Number [facility] [address] [place] [phone] * (ABNORMAL) Comprehensive Metabolic Panel (05/19/2024 4:34 PM EDT) Sodium 139 135 - 145 mmol/L [facility] Potassium 3.8 3.3 - 5.1 mmol/L [facility] Comment:Slight Hemolysis.Int erpret result with caution. Chloride 110(H) 96 - 108 mmol/L [facility] Carbon Dioxide 22 22 - 29 mmol/L [facility] Anion Gap 11(L) 12 - 20 [facility] Urea Nitrogen (BUN) 11 9 - 16 mg/dL [facility] Creatinine, Serum 1.00 0.5 - 1.4 mg/dL [facility] Creatinine Clr Calc Pharmacy 91.5 [facility] Comment:Provided height and weight: 167.64 cm,124 kg.eGFR (calculated from the MDRD study equation) and eCrCl(calculated from the Cockcroft-Gault equation) are based ondifferent parameters and may not yield comparable results.If eCrCl result is absurd, please check patient'sheight/weight. Estimated Glomerular Filt Rate 59 [facility] Comment:Chronic Kidney Disea se: Estimated GFR < 60 mL/min/1.66r8Qaxtor Kidney Disease: Estimated GFR < 15 mL/min/1.73m2 Glucose 118(H) 60 - 115 mg/dL [facility] Calcium 9.6 8.4 - 10.2 mg/dL [facility] Bilirubin, Total 1.3(H) 0.0 - 1.0 mg/dL [facility] Aspartate Amino Transferase 47(H) 5 - 31 U/L [facility] Comment:Slight Hemolysis.Int erpret result with caution. Alanine Aminotransferase 24 0 - 31 U/L [facility] Total Protein 8.1(H) 6.5 - 8.0 g/dL [facility] Albumin Level 3.4(L) 3.5 - 5.0 g/dL [facility] Alkaline Phosphatase 261(H) 39 - 117 U/L [facility] 05/19/2024 4:34 PM EDT 05/19/2024 5:14 PM EDT us Generic External Data Provider LAB BLOOD ORDERAB LES Final Result Performing Organization Address City/State/[facility] Co de Phone Number [facility] [address] [place] [phone] * High Sensitivity Troponin I (05/19/2024 4:34 PM EDT) Pathologist [facility] TROPONIN I HIGH SENSITIVITY <2.7 <3.5 - 17.0 ng/L [facility] Comment:The [employer]ela high sens itivity Troponin-I results should beused in conjunction with other diagnostic information suchas ECG, clinical observations and information, and patientsymptoms to aid in the diagnosis of [place]. 05/19/2024 4:34 PM EDT 05/19/2024 4:42 PM EDT Generic External Data Provider LAB BLOOD ORDERAB LES Final Result Performing Organization Address [facility] de Phone Number [facility] [address] [place] [phone] * (ABNORMAL) Lactic Acid (05/19/2024 4:34 PM EDT) [facility] Lactic Acid 3.4(HH) 0.5 - 2.0 mmol/L [facility] Comment:Critical value for t est(s): LACTA Results called to alonzo back by: EMELY Person calling: MiniMon[employer] Date: 05/19/24Time: 1703 05/19/2024 4:34 PM EDT 05/19/2024 4:39 PM EDT us Generic External Data Provider LAB BLOOD ORDERAB LES Final Result Performing Organization Address [facility] de Phone Number [facility] [address] [place] [phone] * (ABNORMAL) CBC auto differential (05/19/2024 4:34 PM EDT) [facility] White Blood Count 4.4(L) 4.8 - 10.8 X10*3/uL [facility] Red Blood Count 4.40 4.20 - 5.50 X10*6/uL [facility] Hemoglobin 13.5 12.0 - 16.0 g/dl [facility] Hematocrit 39.4 37.0 - 47.0 % [facility] Mean Corpuscular Volume 89.5 80.0 - 98.0 fL [facility] Mean Corpuscular Hemoglobin 30.7 27.0 - 33.0 pg [facility] Mean Corpuscular HGB Conc 34.3 31.0 - 35.0 g/dl [facility] Red Cell Distribution Width 15.9 11.0 - 16.0 % [facility] Platelet Count 63(L) 160 - 400 X10*3/uL [facility] Mean Platelet Volume 11.7 9.4 - 12.3 fL [facility] Neutrophils Percent Auto 60.7 45 - 73 % [facility] Imm Gran Pct Auto 0.2 0.0 - 0.4 % [facility] Lymphocytes Percent Auto 32.6 20 - 40 % [facility] Monocytes Percent Auto 5.1 2 - 11 % [facility] Eosinophils Percent Auto 0.9 0 - 4 % [facility] Basophils Percent Auto 0.5 0 - 2 % [facility] NRBC Pct Auto 0.0 0.0 - 0.2 /100WBC [facility] Neutrophils Absolute Auto 2.6 2.0 - 8.3 x10*3/uL [facility] Imm Gran Abs Auto 0.01 0.00 - 0.03 X10*3/uL [facility] Lymphocytes Absolute Auto 1.4 1.2 - 4.9 X10*3/uL [facility] Monocytes Absolute Auto 0.2 0.1 - 1.2 X10*3/uL [facility] Eosinophils Absolute Auto 0.0 0.0 - 0.4 X10*3/uL [facility] Basophils Absolute Auto 0.0 0.0 - 0.2 X10*3/uL [facility] NRBC Abs Auto 0.000 0.0 - 0.012 X10*3/uL [facility] 05/19/2024 4:34 PM EDT 05/19/2024 4:42 PM EDT us Generic External Data Provider LAB BLOOD ORDERAB LES Edited Result - Final [facility] [address] [place] [phone] documented in this encounter Visit Diagnoses Not on filedocumented in this encounter Additional Health Concerns Assessment Noted Time PHQ-9 Depression Total Score: 0 02/17/19 25 11:42 AM EST documented as of this encounter Care Teams Principal Examiner Relationship Specialty Start Date End Date Angelique Bolaños FNP [address] [place] [address] PCP - General Family Medicine 11/08/22 Vera Mcgovern PharmD [address] [place] [address] Pharmacist Internal Medicine 08/20/23 documented as of this encounter
--- OUTSIDE RECORDS SUMMARY | 2024-05-19 17:54 | XMS_ITS | Encounter Summary ---
Author Organization [email or web address] Address [address] [facility] 7t [place] [address] Care Team Providers Care Real Estate Development Manager Name Role Phone Mami Angelique [facility] Primary Care Provider [phone] Vera Mcgovern PharmD Unavailable [phone] Encounter Details Date Type Department Care Team (Latest Contact Info) Description 05/19/2024 Travel Social History Tobacco Use Types Packs/Day Years [...] 1:00 PM EDT Medication Management [facility] MEDICINE [address] [place] [address] Sophie Zapata PharmD [address] [place] [address] 06/24/2024 3:30 PM EDT Office Visit [facility] OPTOMETRY [address] [place] [address] Wilton, Anaid, OD [address] [place] [address] documented as of this encounter Goals Goal Patient Goal Type Associated Problems Recent Progress Patient-Stated? Author Hemoglobin A1c < 7 Result Component 12.1(02/17/19 11:43 AM EST) No Piers-Gambl e, Vera, PharmD Record your blood sugar as directed Result Component No Piers-Gambl e, Vera, PharmD documented as of this encounter Visit Diagnoses Not on filedocumented in this encounter Additional Health Concerns Assessment Noted Time PHQ-9 Depression Total Score: 0 02/17/19 11:42 AM EST documented as of this encounter Care Teams Real Estate Development Manager Relationship Specialty Start Date End Date Angelique Bolaños FNP [address] [place] [address] PCP - General Family Medicine 11/08/22 Vera Mcgovern, JessicaD [address] [place] [address] Pharmacist Internal Medicine 08/20/23 documented as of this encounter
--- OUTSIDE RECORDS SUMMARY | 2024-05-19 17:54 | XMS_ITS | Encounter Summary ---
Author Organization [employer] Address [address] [place] [address] 7t [place] [address] Care Team Providers Care Paste Thinner Name Role Phone [facility] Primary Care Provider [phone] Vera Mcgovern PharmD Unavailable [phone] Encounter Details Date Type Department Care Team (Late st Contact Info) Description 05/18/2024 Patient Outreach [facility] MEDICINE [address] [place], [place] [phone] [facility] [address] [place] [address] Social History Tobacco Use Types Packs/Day Years [...] Description 05/24/2024 1:00 PM EDT Medication Management [facility] MED[facility] [address] [place] [address] Sophie Zapata PharmD [address] [place] [address] 06/24/2024 3:30 PM EDT Office Visit [facility] OPTOMETRY [address] [place] [address] Wilton, Anaid, OD 230 [place] [address] documented as of this encounter Goals Goal Patient Goal Type Associated Problems Recent Progress Patient-Stated? Author Hemoglobin A1c < 7 Result Component 12.1(02/17/19 25 11:43 AM EST) No Vera Bean PharmD Record your blood sugar as directed Result Component No Vera Bean PharmD documented as of this encounter Visit Diagnoses Not on filedocumented in this encounter Additional Health Concerns Assessment Noted Time PHQ-9 Depression Total Score: 0 02/17/19 25 11:42 AM EST documented as of this encounter Care Teams Paste Thinner Relationship Specialty Start Date End Date Angelique BolañosJESS [address] [place] [address] PCP - General Family Medicine 11/08/22 Vera Mcgovern, Maddy [address] [place] [address] Pharmacist Internal Medicine 08/20/23 documented as of this encounter
--- OUTSIDE RECORDS SUMMARY | 2024-05-19 17:54 | XMS_ITS | Encounter Summary ---
Author Organization [employer] Address [address] [place] [address] 7t [place] [address] Care Team Providers Care Adjunct Professor Name Role Phone [facility] Primary Care Provider [phone] Vera Mcgovern PharmD Unavailable [phone] Reason for Visit * Reason Onset Date Comments [employer] 05/19/2024 Encounter Details Date Type Department Care Team (Late st Contact Info) Description 05/19/2024 Telephone [facility] [address] [place] [address] [facility] [address] [place] [address] [employer] Social History Tobacco Use Types Packs/Day Years [...] encounter Miscellaneous Notes * Telephone Encounter - Rachelle Clark RN - 05/19/2024 1:30 PM EDT TC returned to daughter, daughter reports pt. [facility] ED 05/17/24 after speaking to triage however LWBS after 9 hours. Blood and urine results from ED are in chart. Daughter reports pt.'s main complaints are malodorous urine and L sided abd pain that radiates to L flank. Daughter requests uber booked for pt. To come to walk in today, requests uber cook pickled meat at 2:30pm. Advised daughter of possible wait time. Uber booked. * Telephone Encounter - Miriam Alonso - 05/19/2024 12:23 PM EDT Tc from pt daughter stating mom has abdominal pain. Pt was triage on Wednesday 05/17 it was [facility], unable to come due don't have transportation, pt requesting uber. [phone] (Pt Daughter) documented in this encounter Plan of Treatment Upcoming Encounters Date Type Department Care Team (Late st Contact Info) Description 05/24/2024 1:00 PM EDT Medication Management [facility] [address] [place] [address] Sophie Zapata PharmD [address] [place] [address] 06/24/2024 3:30 PM EDT Office Visit [facility] OPTOMETRY [address] [place], [place] [phone] WiltonAnaid solorzano, OD [address] [place] [address] documented as of this encounter Goals Goal [...] documented as of this encounter Care Teams Adjunct Professor Relationship Specialty Start Date End Date Angelique Bolaños FNP [address] [place] [address] PCP - General Family Medicine 11/08/22 Vera Mcgovern, JessicaD [address] [place] [address] [phone] Pharmacist Internal Medicine 08/20/23 documented as of this encounter
--- OUTSIDE RECORDS SUMMARY | 2024-05-19 17:54 | XMS_ITS | Encounter Summary ---
Author Organization [employer] Address [address] [place] [address] 7t [place] [address] Care Team Providers Care Well Service Derrick Worker Name Role Phone [facility] Primary Care Provider [phone] Vera Mcgovern PharmD Unavailable [phone] Encounter Details Date Type Department Care Team (Late st Contact Info) Description 05/14/2024 Patient Outreach [facility] MED[facility]INE [address] [place], [place] [phone] [facility] [address] [place] [address] Social History Tobacco Use Types Packs/Day Years [...] Description 05/24/2024 1:00 PM EDT Medication Management [facility] [address] [place] [address] Sophie Zapata PharmD [address] [place] [address] 06/24/2024 3:30 PM EDT Office Visit [facility] OPTOMETRY [address] [place] [address] Wilton, Anaid, OD [address] [place] [address] documented as of this encounter Goals Goal [...] documented as of this encounter Care Teams Well Service Derrick Worker Relationship Specialty Start Date End Date Angelique BolañosJESS [address] [place] [address] PCP - General Family Medicine 11/08/22 Vera Mcgovern, Maddy [address] [place] [address] Pharmacist Internal Medicine 08/20/23 documented as of this encounter
--- OUTSIDE RECORDS SUMMARY | 2024-05-19 17:54 | XMS_ITS | Encounter Summary ---
Author Organization [employer] Address [address] [place] [address] 7t [place] [address] Care Team Providers Care Law Secretary Name Role Phone [facility] Primary Care Provider [phone] Vera Mcgovern PharmD Unavailable [phone] Reason for Visit * Reason Onset Date Comments Prior Authorization 05/11/2024 Encounter Details Date Type Department Care Team (Late st Contact Info) Description 05/11/2024 Telephone [facility] [address] [place] [address] [facility] [address] [place] [address] Prior Authorization Social History Tobacco Use Types Packs/Day Years [...] the past 12 months, has t he [employer], gas, oil or water [employer] threatened to shut off services in your [...] encounter Miscellaneous Notes * Telephone Encounter - Neal Foote - 05/11/2024 12:46 PM EDT Tc from pt requesting a PA for med propranolol (Inderal) 10 MG tablet . Contact pt at [phone] documented in this encounter Plan of Treatment Upcoming Encounters Date Type Department Care Team (Late st Contact Info) Description 05/24/2024 1:00 PM EDT Medication Management [facility] [address] [place] [address] Sophie Zapata, PharmD [address] [place] [address] 06/24/2024 3:30 PM EDT Office Visit [facility] OPTOMETRY [address] [place] [address] Anaid Núñez, OD [address] [place] [address] documented as of this encounter Goals Goal [...] documented as of this encounter Care Teams Law Secretary Relationship Specialty Start Date End Date Angelique Bolaños FNP [address] [place] [address] PCP - General Family Medicine 11/08/22 Vera Mcgovern PharmD [address] [place] [address] Pharmacist Internal Medicine 08/20/23 documented as of this encounter
--- OUTSIDE RECORDS SUMMARY | 2024-05-19 17:54 | XMS_ITS | Continuity of Care Document ---
Author Organization [facility] vices Address [address] [place] [address] Phone Care Team Providers Care Exhibitions Curator Name Role Phone Sallie Ryan MD Unavailable Unavailable Allergies, Adverse Reactions, Alerts Substance Reaction Status Criticality acetaminophen Liver Toxicity Active No Informati on Medications Medication Instructions Dosage Effective Dates (start - stop) Status Comments OZEMPIC 1.34MG/ML INJ INJECT 0.5 MG BY SUBCUTANEOUS ROUTE EVERY WEEK - Active cyclobenzaprine 10 mg tablet TAKE ONE TABLET BY MOUTH 3 TIMES A DAY - Active naproxen 500 mg tablet take 1 tablet by oral route 2 times every day with food 500 MG - Active metformin 1,000 mg tablet take 1 tablet by oral route 2 times every day with morning and evening meals 1000 MG - Active ONETOUCH ULTRA2 SYST TEST TWICE A DAY - Active ONE TOUCH ULTRA TEST STRIP NOE TEST TWICE A DAY 1 test strip - Active ONE TOUCH DELICA PLUS TEST TWICE A DAY 1 Each - Active tamsulosin 0.4 mg capsule take 1 capsule by oral route every day 1/2 hour following the same meal each day for kidney Stones 0.4 MG - Active tramadol ER 200 mg tablet,extended release 24 hr TAKE 1 TABLET BY ORAL ROUTE EVERY DAY - Active LINZESS 145MCG CAP TAKE 1 CAPSULE BY ORAL ROUTE EVERY DAY ON AN EMPTY STOMACH AT LEAST 30 MINUTES BEFORE 1ST MEAL OF THE DAY FOR CONSTIPATION - Active BUTALBITAL, ACETAMIN 50-300-40MG CAP TAKE 1 TO 2 CAPSULES BY MOUTH EVERY 4 HOURS NEEDED, NOT TO EXCEED 6 CAPSULES PER 24 HOURS - Active pregabalin 225 mg capsule take 1 capsule by oral route 2 times every day 225 MG - Active Tresiba FlexTouch U-100 insulin 100 unit/mL (3 mL) subcutaneous pen inject 55 unit by subcutaneous route every day as per insulin protocol 55 unit - Active not dose change PEN NEEDLES 4MM EASY COMFORT 4MM USE 1 NEEDLE BY SUBCUTANEOUS ROUTE EVERY DAY TO GIVE INSULIN INJECTIONS 1 needle - Active pantoprazole 40 mg tablet,delayed release TAKE 1 TABLET BY ORAL ROUTE EVERY DAY - Active ProAir HFA 90 mcg/actuation aerosol inhaler inhale 2 puff by inhalation route every 4 - 6 hours as needed - Active med was lost amitriptyline 50 mg tablet take 1 tablet by oral route every day at bedtime for MIGRAINE PREVENTION 50 MG - Active Ultra-Light Rollator Fitly Rolling walker with seat dx M54.9 x 99 years weight 308 lbs - Active Previous Walker has broken brakes. blood pressure kit-extra large cuff take blood pressure by topica route every day (digital cuff. Dx i10. Duration 99) blood pressure - Active Vitamin D2 50,000 unit capsule take 1 capsule by oral route every week - Active CLOTRIMAZO/BETAMET 1-0.05% CRM APPLY TO AFFECTED AND SURROUNDING SKIN MORNING + EVENING TWICE A DAY FOR 2 WEEKS - Active Miscellaneous Script [employer] Shower chair and grab bars dx R55 x 99 years - Active hydroxyzine HCl 25 mg tablet take 1 tablet by oral route 3 times every day 25 MG - Active Flonase Allergy Relief 50 mcg/actuation nasal spray,suspension inhale 2 spray by intranasal route every day in each nostril 100 MCG - Active Fluocinonide-E 0.05 % topical cream apply by topical route 2 times every day to the affected area(s) 0.00 - Active Procedures Procedure Date Telephone E/M By Provider 11-20 MIN GLUCOSE BLOOD TEST GLYCATED HEMOGLOBIN TEST (A1C) 20 URINALYSIS NONAUTO W/O SCOPE OFFICE/OUTPT Visit, EST - DetHx, DetExam , ModMDM, 25 Minutes GLUCOSE BLOOD TEST GLYCATED HEMOGLOBIN TEST (A1C) 19 IMMUNIZATION ADMIN Influenza Vaccine,Quad IIV4,Split, PresF ree, 0.5mL, IM OFFICE/OUTPATIENT VISIT, EST GLUCOSE BLOOD TEST OFFICE/OUTPATIENT VISIT, EST ELECTROCARDIOGRAM, COMPLETE OFFICE/OUTPATIENT VISIT, NEW GLUCOSE BLOOD TEST GLYCATED HEMOGLOBIN TEST (A1C) 19 OFFICE/OUTPATIENT VISIT, EST Psychotherapy, 45 Minutes With Patient N GLUCOSE BLOOD TEST GLYCATED HEMOGLOBIN TEST (A1C) 18 OFFICE/OUTPATIENT VISIT, EST URINALYSIS NONAUTO W/O SCOPE OFFICE/OUTPATIENT VISIT, EST REFRACTION EYE EXAM, NEW PATIENT GLUCOSE BLOOD TEST OFFICE/OUTPATIENT VISIT, EST GLUCOSE BLOOD TEST OFFICE/OUTPATIENT VISIT, EST Psychotherapy, 45 Minutes With Patient M GLUCOSE BLOOD TEST OFFICE/OUTPATIENT VISIT, EST GLUCOSE BLOOD TEST OFFICE/OUTPATIENT VISIT, EST Psychotherapy, 45 Minutes With Patient M Psychotherapy, 45 Minutes With Patient A OFFICE/OUTPATIENT VISIT, EST GLUCOSE BLOOD TEST GLYCATED HEMOGLOBIN TEST (A1C) 18 Psych Dx Eval GLUCOSE BLOOD TEST OFFICE/OUTPATIENT VISIT, EST Psychotherapy, 30 Minutes With Patient J GLUCOSE BLOOD TEST GLYCATED HEMOGLOBIN TEST (A1C) 18 OFFICE/OUTPATIENT VISIT, EST GLUCOSE BLOOD TEST GLYCATED HEMOGLOBIN TEST (A1C) 17 HIV-1/HIV-2, SINGLE ASSAY OFFICE/OUTPATIENT VISIT, EST Prophylaxis-Adult Oral Hygiene Instructions Bitewings-Four Films Limited Oral Evaluation-Problem Focused Treatment Plan Not Started GLUCOSE BLOOD TEST OFFICE/OUTPATIENT VISIT, EST GLUCOSE BLOOD TEST OFFICE/OUTPATIENT VISIT, EST GLUCOSE BLOOD TEST URINALYSIS NONAUTO W/O SCOPE OFFICE/OUTPATIENT VISIT, EST GLUCOSE BLOOD TEST OFFICE/OUTPATIENT VISIT, EST URINALYSIS NONAUTO W/O SCOPE GLYCATED HEMOGLOBIN TEST (A1C) 17 Psychotherapy, 45 Minutes With Patient F Psychotherapy, 30 Minutes With Patient F GLUCOSE BLOOD TEST OFFICE/OUTPATIENT VISIT, EST Psychotherapy, 45 Minutes With Patient J OFFICE/OUTPATIENT VISIT, EST GLUCOSE BLOOD TEST URINALYSIS NONAUTO W/O SCOPE OFFICE/OUTPATIENT VISIT, EST Intraoral-Periapical First Film 016 Limited Oral Evaluation-Problem Focused Treatment Plan Not Started OFFICE/OUTPATIENT VISIT, EST PsyTxPt And Family 45 Minutes 6 OFFICE/OUTPATIENT VISIT, EST GLUCOSE BLOOD TEST IMMUNIZATION ADMIN FLU VACCINE, IIV3, Split, NO PRESERV 3 & > OFFICE/OUTPATIENT VISIT, EST OFFICE/OUTPATIENT VISIT, EST GLUCOSE BLOOD TEST OFFICE/OUTPATIENT VISIT, EST OFFICE/OUTPATIENT VISIT, EST OFFICE/OUTPATIENT VISIT, EST PsyTxPt And Family 45 Minutes 6 OFFICE/OUTPATIENT VISIT, EST OFFICE/OUTPATIENT VISIT, EST PsyTxPt And Family 45 Minutes 6 OFFICE/OUTPATIENT VISIT, EST OFFICE/OUTPATIENT VISIT, EST PsyTxPt And Family 45 Minutes 6 OFFICE/OUTPATIENT VISIT, EST PsyTXPt And Family 60 Min PsyTxPt And Family 45 Minutes 6 Psych Diag Eval W/Med Serv PsyTxPt And Family 45 Minutes 6 OFFICE/OUTPATIENT VISIT, EST PsyTxPt And Family 45 Minutes 6 PsyTxPt And Family 45 Minutes 6 PsyTXPt And Family 60 Min OFFICE/OUTPATIENT VISIT, EST OFFICE/OUTPATIENT VISIT, EST Psych Dx Eval OFFICE/OUTPATIENT VISIT, EST IMMUNIZATION ADMIN FLU VACCINE, 3 YRS & >, IM OFFICE/OUTPATIENT VISIT, EST OFFICE/OUTPATIENT VISIT, EST OFFICE/OUTPATIENT VISIT, EST OFFICE/OUTPATIENT VISIT, EST HIV Rapid Test Oral Mucosal IMMUNIZATION ADMIN FLU VACCINE, 3 YRS & >, IM OFFICE/OUTPATIENT VISIT, EST OFFICE/OUTPATIENT VISIT, EST OFFICE/OUTPATIENT VISIT, EST OFFICE/OUTPATIENT VISIT, EST URINALYSIS NONAUTO W/O SCOPE OFFICE/OUTPATIENT VISIT, EST OFFICE/OUTPATIENT VISIT, EST PsyTXPT And Family 30 Minutes 4 OFFICE/OUTPATIENT VISIT, EST Documentation Is Incomplete PsyTXPT And Family 30 Minutes 4 Psych Diag Eval W/Med Serv PsyTxPt And Family 45 Minutes 4 Documentation Not Signed PsyTxPt And Family 45 Minutes 4 Psych Dx Eval OFFICE/OUTPATIENT VISIT, EST OFFICE/OUTPATIENT VISIT, EST OFFICE/OUTPATIENT VISIT, EST OFFICE/OUTPATIENT VISIT, EST PURE TONE HEARING TEST, AIR VISUAL ACUITY SCREEN HEMOGLOBIN URINALYSIS NONAUTO W/O SCOPE GLUCOSE BLOOD TEST GLYCATED HEMOGLOBIN TEST FLU VACCINE NO PRESERV 3 & > IMMUNIZATION ADMIN TDAP VACCINE >7 IM IMMUNIZATION ADMIN HIV-1/HIV-2, SINGLE ASSAY PREV VISIT, EST, AGE 18-39 No Charge URINALYSIS (IH) TEST, URINE (IH) US EXAM, ABDOM, COMPLETE AMYLASE BASIC METABOLIC PANEL ALT (CLP 22026) AST (CLP 10035) GLUCOSE, RANDOM (IH) CEFTRIAXONE SODIUM INJECTION H PYLORI AB IGG (CLP 15796) AZITHROMYCIN HEPATITIS C AB HEPATITIS B SURFACE AG, EIA HEPATITIS B SURF AB QUANT LIPASE CHLAMYDIA (CLP 25778) GONORRHEA, DNA (CLP 67987) TSH RPR HIV-1/HIV-2 AB, REFLEX WB NEW Level 3 - Detailed CBC W/O DIFF (CLP 68803) Advance Directives Directive Yes / No Effective Date File Name No Information Encounters Encounter Description Practice Location Reason(s) For Visit Diagnoses Date Provider Providers Copied on Encounter [facility], [address], [place], [address], [place] tel:[phone] [facility] Adult Medicine No Information 1 Connor Rizo. [address], [id number] [place], [address], [place]. tel:[phone] [facility], [place], [address], [place] tel:[phone] [facility] Adult Medicine No Information Dec-2 3-202 0 Brown Orett. [address], [id number] [place], [address], [place]. tel:[phone] [facility], [place], [address], [place] tel:[phone] [facility] Adult Medicine No Information Dec-2 1-202 0 Brown Orett. [address], [id number] [place], [address], [place]. tel:[phone] [facility], [place], [address], [place] tel:[phone] [facility] Adult Medicine No Information Jan- 2-202 0 Brown Orett. [address], [id number] [place], [address], [place]. tel: [phone] [facility], [place], [address], [place] tel:[phone] [facility] Adult Medicine No Information Oct-3 0-202 0 Brown Orett. [address], [id number] [place], [address], [place]. tel: [phone] [facility], [place], [address], [place] tel:[phone] [facility] Adult Medicine No Information Nov-2 2-202 0 Brown Orett. [address], [id number] [place], [place], [address], [place]. tel:[phone] [facility], [place], [address], [place] tel:[phone] [facility] Adult Medicine No Information Nov-1 8-202 0 Brown Orett. [address], [id number] [place], [place], [address], [place]. tel:[phone] [facility], [address] [place] [address], [facility], [place] tel:[phone] [facility] Adult Medicine No Information 0 Connor [facility]izo. [facility], [id number] [address] [place] [address], [address], [place]. tel:[phone] [facility], [address] [place] [address], [facility], [place] tel:[phone] [facility] Adult Medicine No Information 0 Connor Rizo. [facility], [id number] [address] [place] [address], [address], [place]. tel:[phone] Telephone E/M By Provider 11-20 MIN [facility], [address] [place] [address], [facility], [place] tel:[phone] [facility] Adult Medicine Telehealth (chief complaint) Kidney stonesType 2 diabetesConst ipation, unspecified constipation type 0 Connor Otttt. Nolberto [facility], [id number] [address] [place] [address], [facility], [place]. tel:[phone] [facility], [address] [place] [address], [facility], [place] tel:[phone] [facility] Adult Medicine No Information 0 Connor Otttt. [address], [id number] [address] [place] [address], [address], [place]. tel:[phone] [facility], [address] [place] [address], [facility], [place] tel:[phone] [facility] Adult Medicine No Information 0 Connor Otttt. [facility], [id number] [address] [place] [address], [facility], [place]. tel:[phone] OFFICE/OUTPT Visit, EST - DetHx, Abilio, DavidM, 25 Minutes [facility], [address] [place] [address], [facility], [place] tel:[phone] [facility] Adult Medicine Hosp F/u (chief complaint) Body mass index (BMI) 45.0-49.9, adultEncounte r for screening, unspecifiedBr east calcification sOpacity of lung on imaging studyChronic constipationT ype 2 diabetes May- 0 Connor Rizo. [address], [id number] [address] [place] [address], [address], [place]. tel:[phone] OFFICE/OUTPA TIENT VISIT, [facility], [address] [place] [address], [address], [place] tel:[phone] [facility] Adult Medicine follow up (chief complaint) Body mass index (BMI) 45.0-49.9, adultEncounte r for screening, unspecifiedSp inal stenosis, lumbar region with neurogenic claudicationH ypertrophy of breastType 2 diabetes mellitus without complications 9 Connor Rizo. [address] [facility], [id number] [address] [place] [address], [address], [place]. tel:[phone] OFFICE/OUTPA TIENT VISIT, [facility], [address] [place] [address], [facility], [place] tel:[phone] [facility] Adult Medicine routine F/u (chief complaint) Body mass index (BMI) 45.0-49.9, adultEncounte r for screening, unspecifiedSp inal stenosis, lumbar region with neurogenic claudicationS ialadenitis 9 Connor Rizo. [address] [facility], [id number] [address] [place] [address], [address], [place]. tel:[phone] OFFICE/OUTPA TIENT VISIT, [facility], [address] [place] [address], [address], [place] tel:[phone] [facility] Cardiology fatigue (chief complaint)pal pitations (chief complaint)Diz ziness (chief complaint) Generalized anxiety disorderOther psychoactive substance use, unspecified with other psychoactive substance-ind uced disorderMajor depressive disorder, recurrent, moderateDorsa lgia, unspecifiedPr ediabetesPalp itations 9 No Information [facility], [address] [place] [address], [address], [place] tel:[phone] [facility] Adult Medicine No Information 9 Connor Rizo. [address], [id number] [address] [place] [address], [facility], [place]. [phone] OFFICE/OUTPA TIENT VISIT, [facility], [address] [place] [address], [facility], [place] tel:[phone] [facility] Adult Medicine routine f/u (chief complaint) Body mass index (BMI) 45.0-49.9, adultEncounte r for screening, unspecifiedOt her chronic painLarge breastsType 2 diabetes mellitus without complication, with long-term current use of insulinLong term (current) use of insulinBenign essential HTNChronic bilateral low back pain with sciatica, sciatica laterality unspecified [address] [place], [place] [address]tiff, [id number] [address] [place] [address], [facility], [place]. tel:[phone] [facility], [address] [place] [address], [facility], tel:[phone] [facility] Adult Medicine [place] No Information 8 Connor Rizo. [address] [place] [address], [id number] [address] [place] [address], [facility], [place]. tel:[phone] Psychotherap y, 45 Minutes With Patient [facility], [address] [place] [address], tel:[phone] [facility] Behavioral Health Generalized Anxiety DisorderCanna bis dependence, uncomplicated Major depressive disorder, recurrent, moderate 8 No Information [facility], [address] [place] [address], [facility], [place] tel:[phone] [facility] Adult Medicine No Information 8 No Information OFFICE/OUTPA TIENT VISIT, [facility], [address] [place] [address], [facility], [place] tel:[phone] [facility] Adult Medicine c/o Arm Pain (chief complaint) Body mass index (BMI) 45.0-49.9, adultEncounte r for screening for diabetes mellitusEncou nter for screening, unspecifiedLi ghtheadedness Oct- 8 Connor Rizo. [address] [facility], [id number] [address] [place] [address], [address], [place]. tel:[phone] OFFICE/OUTPA TIENT VISIT, [facility], [address] [place] [address], [address], [place] tel:[phone] [facility] Adult Medicine TRIAGE (chief complaint)diz zy/lightheade d with falls (chief complaint) Vasovagal reactionDorsa lgia, unspecifiedEn counter for screening, unspecifiedEn counter for test, result negative 8 No Information [facility], [address] [place] [address], [address], [place] tel:[phone] [facility] Optometry Diabetes Examination (chief complaint)Brenda betes Examination (chief complaint) Type 2 diabetes mellitus without complications Myopia, bilateral 8 No Information OFFICE/OUTPA TIENT VISIT, [facility], [address] [place] [address], [facility], [place] tel:[phone] [facility] Adult Medicine Lab results (chief complaint) Type 2 diabetes mellitus without complications Essential (primary) hypertensionB neelam mass index (BMI) 45.0-49.9, adultEncounte r for screening, unspecifiedPa in of upper abdomenDermat itis 8 No Information OFFICE/OUTPA TIENT VISIT, [facility], [address] [place] [address], [address], [place] tel:[phone] [facility] Adult Medicine back Pain f/u (chief complaint) Body mass index (BMI) 40.0-44.9, adultEncounte r for screening, unspecifiedEp igastric painDorsalgia , unspecified 8 Connor Ottbrandyn. [address] [facility], [id number] [address] [place] [address], [address], [place]. tel:[phone] Psychotherap y, 45 Minutes With Patient [facility], [address] [place] [address], [address], [place] tel:[phone] [facility] Behavioral Health Anxiety disorder, unspecifiedCa nnabis use disorder, moderate 8 No Information OFFICE/OUTPA TIENT VISIT, [facility], [address] [place] [address], [facility], [place] tel:[phone] [facility] Adult Medicine PRE-OP (chief complaint) Encounter for screening for diabetes mellitusBody mass index (BMI) 45.0-49.9, adultPre-op evaluationLon g term (current) use of insulinType 2 diabetes mellitus without complication, with long-term current use of insulin 0 7- [address] [facility] [facility], [id number] [address] [place] [address], [address], [place]. tel:[phone] OFFICE/OUTPA TIENT VISIT, [facility], [address] [place] [address], [facility], [place] tel:[phone] [facility] Adult Medicine Pre-OP #1 (chief complaint) Body mass index (BMI) 45.0-49.9, adultEncounte r for screening, unspecifiedPr e-op evaluationTyp e 2 diabetes mellitus with complication, with long-term current use of insulinLong term (current) use of insulinAnal fissure 0 8 [facility]. [address] [facility], [id number] [address] [place] [address], [address], [place]. tel:[phone] Psychotherap y, 45 Minutes With Patient [facility], [address] [place] [address], [facility], [place] tel:[phone] [facility] Behavioral Health Cannabis use disorder, moderateGener alized Anxiety DisorderMajor depressive disorder, recurrent, moderate 0 2- 8 No Information Psychotherap y, 45 Minutes With Patient [facility], [address] [place] [address], [facility], [place] tel:[phone] [facility] Behavioral Health Cannabis use disorder, moderateGener alized Anxiety Disorder May-2 5 8 No Information OFFICE/OUTPA TIENT VISIT, [facility], [address] [place] [address], [address], [place] tel:[phone] [facility] Adult Medicine Cough (chief complaint) Body mass index (BMI) 45.0-49.9, adultPost-marti al dripCoughEnco unter for screening, unspecified Apr-2 3- 8 No Information Psych Dx Eval [facility], [address] [place] [address], [address], [place] tel:[phone] [facility] Behavioral Health Generalized Anxiety DisorderCanna bis use disorder, moderate 8 No Information OFFICE/OUTPA TIENT VISIT, [facility], [address] [place] [address], [address], [place] tel:[phone] [facility] Adult Medicine Hemorrhoids (chief complaint) Body mass index (BMI) 45.0-49.9, adultEncounte r for screening for diabetes mellitusBleed ing internal hemorrhoids 8 [facility]. [address] [place] [address], [id number] [address] [place] [address], [address], [place]. tel:[phone] Psychotherap y, 30 Minutes With Patient [facility], [address] [place] [address], [facility], [place] tel:[phone] [facility] Behavioral Health Anxiety disorder, unspecifiedCa nnabis dependence, uncomplicated 8 No Information OFFICE/OUTPA TIENT VISIT, [facility], [address] [place] [address], [address], [place] tel:[phone] [facility] Adult Medicine [place] Follow Up of diabetes (chief complaint)Fol low Up of hypertension (chief complaint) Body mass index (BMI) 40.0-44.9, adultEncounte r for screening, unspecifiedHy pertensionHea rtburnOther dorsalgiaHemo rrhoids 8 No Information OFFICE/OUTPA TIENT VISIT, [facility], [address] [place] [address], [facility], [place] tel:[phone] [facility] Adult Medicine [place] Ultrasound results (chief complaint)Fol low Up of Diabetes (chief complaint)Fol low Up of Hypertension (chief complaint) Body mass index (BMI) 45.0-49.9, adultEncounte r for screening for diabetes mellitusEncou nter for screening, unspecifiedEn counter for screening for other viral diseasesType 2 diabetes mellitus without complications Hypertension 7 No Information [facility], [address] [place] [address], [address], [place] tel:[phone] [facility] Dental Encounter for dental exam and cleaning w/o abnormal findings Devin Connors. [address] [place] [address], [id number] [address] [place] [address], [id number], [place]. tel:[phone] [facility], [address] [place] [address], [address], [place] tel:[phone] [facility] Dental Encounter for screening for dental disorders No Information OFFICE/OUTPA TIENT VISIT, [facility], [address] [place] [address], [address], [place] tel:[phone] [facility] [facility] [place] Abdominal pain (chief complaint)Fol low Up of Diabetes (chief complaint)Fol low Up of Hypertension (chief complaint) Body mass index (BMI) 40.0-44.9, adultEncounte r for screening for diabetes mellitusUnspe cified abdominal painMorbid obesity due to excess calories No Information OFFICE/OUTPA TIENT VISIT, [facility], [address] [place] [address], [address], [place] tel:[phone] [facility] Adult Medicine [place] Follow Up of Diabetes (chief complaint)Fol low Up of Hypertension (chief complaint)Jamie k pain (chief complaint) Body mass index (BMI) 45.0-49.9, adultEncounte r for screening for diabetes mellitusUnspe cified abdominal painEssential (primary) hypertensionT ype 2 diabetes mellitus without complications No Information OFFICE/OUTPA TIENT VISIT, [facility], [address] [place] [address], [address], [place] tel:[phone] [facility] Adult Medicine elevated blood sugar (chief complaint) Type 2 diabetes mellitus without complications Encounter for screening for diabetes mellitusBody mass index (BMI) 45.0-49.9, adultEncounte r for screening, unspecified No Information OFFICE/OUTPA TIENT VISIT, [facility], [address] [place] [address], [address], [place] tel:[phone] [facility] Adult Medicine diabetes (chief complaint) Encounter for screening, unspecifiedEs sential (primary) hypertensionT ype 2 diabetes mellitus without complications No Information Psychotherap y, 45 Minutes With Patient [facility], [address] [place] [address], [address], [place] tel:[phone] [facility] Behavioral Health Anxiety disorder, unspecifiedCa nnabis use, unspecified, uncomplicated No Information Psychotherap y, 30 Minutes With Patient [facility], [address] [place] [address], [address], [place] tel:[phone] [facility] Behavioral Health Anxiety disorder, unspecifiedCa nnabis use, unspecified, uncomplicated No Information OFFICE/OUTPA TIENT VISIT, [facility], [address] [place] [address], [address], [place] tel:[phone] [facility] Adult Medicine restless leg (chief complaint) Encounter for screening for diabetes mellitusBody mass index (BMI) 45.0-49.9, adultRestless leg syndrome No Information Psychotherap y, 45 Minutes With Patient [facility], [address] [place] [address], [address], [place] tel:[phone] [facility] Behavioral Health Anxiety disorder, unspecifiedCa nnabis dependence, uncomplicated No Information OFFICE/OUTPA TIENT VISIT, [facility], [address] [place] [address], [address], [place] tel:[phone] [facility] Behavioral Health anxiety (chief complaint) Anxiety disorder, unspecifiedCa nnabis dependence, uncomplicated No Information OFFICE/OUTPA TIENT VISIT, [facility], [address] [place] [address], [address], [place] tel:[phone] [facility] Adult Medicine Rash/frequent urination (chief complaint) Body mass index (BMI) 45.0-49.9, adultEncounte r for screening for diabetes mellitusRashH yperglycemiaE ncounter for screening, unspecified No Information [facility], [address] [place] [address], [address], [place] tel:[phone] [facility] Dental Dental caries on pit and fissure surfc penetrat into dentin 6 No Information OFFICE/OUTPA TIENT VISIT, [facility], [address] [place] [address], [address], [place] tel:[phone] [facility] Behavioral Health anxiety (chief complaint) Anxiety disorder, unspecifiedCa nnabis dependence, uncomplicated Dec-3 0- 6 No Information PsyTxPt And Family 45 Minutes [facility], [address] [place] [address], [facility], [place] tel:[phone] [facility] Behavioral Health Anxiety disorder, unspecifiedCa nnabis dependence, uncomplicated 6 No Information OFFICE/OUTPA TIENT VISIT, [facility], [address] [place] [address], [facility], [place] tel:[phone] [facility] Behavioral Health anxiety (chief complaint) Anxiety disorder, unspecifiedCa nnabis use, unspecified, uncomplicated 6 No Information OFFICE/OUTPA TIENT VISIT, [facility], [address] [place] [address], [facility], [place] tel:[phone] [facility] Adult Medicine [place] Follow Up of Diabetes (chief complaint)Fol low Up of Hypertension (chief complaint)abd ominal pain (chief complaint) Encounter for immunizationE ncounter for screening for diabetes mellitusType 2 diabetes mellitus without complications HypertensionU nspecified abdominal pain 6 No Information OFFICE/OUTPA TIENT VISIT, [facility], [address] [place] [address], [address], [place] tel:[phone] [facility] Behavioral Health Substance abuse (chief complaint) Anxiety disorder, unspecifiedCa nnabis use, unspecified, uncomplicated Oct- 6 No Information OFFICE/OUTPA TIENT VISIT, [facility], [address] [place] [address], [address], [place] tel:[phone] [facility] Adult Medicine rash (chief complaint) Encounter for screening for diabetes mellitusBody mass index (BMI) 45.0-49.9, adultRash and nonspecific skin eruption Oct- 6 No Information OFFICE/OUTPA TIENT VISIT, [facility], [address] [place] [address], [address], [place] tel:[phone] [facility] Adult Medicine [place] Follow Up of Hypertension (chief complaint)Blo od work results (chief complaint) Type 2 diabetes mellitus without complications HypertensionB ack pain 6 No Information OFFICE/OUTPA TIENT VISIT, [facility], [address] [place] [address], [address], [place] tel:[phone] [facility] Behavioral Health anxiety (chief complaint) Anxiety disorder, unspecifiedCa nnabis use, unspecified, uncomplicated 6 No Information PsyTxPt And Family 45 Minutes [facility], [address] [place] [address], [address], [place] tel:[phone] [facility] Behavioral Health Anxiety disorder, unspecifiedCa nnabis dependence, uncomplicated 6 No Information OFFICE/OUTPA TIENT VISIT, [facility], [address] [place] [address], [address], [place] tel:[phone] [facility] Adult Medicine asthma (chief complaint)Tri age (chief complaint) Asthma exacerbation 6 No Information OFFICE/OUTPA TIENT VISIT, [facility], [address] [place] [address], [address], [place] tel:[phone] [facility] Behavioral Health Anxiety (chief complaint) Anxiety disorder, unspecified 6 No Information PsyTxPt And Family 45 Minutes [facility], [address] [place] [address], [address], [place] tel:[phone] [facility] Behavioral Health Anxiety disorder, unspecified 6 No Information OFFICE/OUTPA TIENT VISIT, [facility], [address] [place] [address], [address], [place] tel:[phone] [facility] Adult Medicine [place] Follow Up of Last visit (chief complaint) Unspecified abdominal pain 6 No Information OFFICE/OUTPA TIENT VISIT, [facility], [address] [place] [address], [address], [place] tel:[phone] [facility] Behavioral Health anxiety (chief complaint) Anxiety disorder, unspecifiedBi polar disord, crnt epsd depress, sev, w/o psych features 6 No Information PsyTxPt And Family 45 Minutes [facility], [address] [place], [address], [place] tel:[phone] [facility] Behavioral Health Anxiety disorder, unspecifiedBi polar disord, crnt epsd depress, sev, w/o psych features June-0 2-201 6 No Information OFFICE/OUTPA TIENT VISIT, [facility], [address] [place], [address], [place] tel:[phone] [facility] Behavioral Health anxiety (chief complaint) Cannabis dependence, uncomplicated Major depressive disorder, recurrent, moderate Apr-1 3-201 6 No Information PsyTXPt And Family 60 Min [facility], [address] [place], [address], [place] tel:[phone] [facility] Behavioral Health Cannabis dependence, uncomplicated Major depressive disorder, recurrent, moderate Apr-1 1- 6 No Information PsyTxPt And Family 45 Minutes [facility], [address] [place] [address], [address], [place] tel:[phone] [facility] Behavioral Health anxiety (chief complaint) Bipolar disord, crnt epsd depress, sev, w/o psych featuresCanna bis use, unspecified, uncomplicated Mar-3 1- 6 No Information Psych Diag Eval W/Med Serv [facility], [address] [place], [address], [place] tel:[phone] [facility] Behavioral Health Initial Assessment (chief complaint) Bipolar disord, crnt epsd depress, sev, w/o psych featuresCanna bis use, unspecified, uncomplicated Mar-3 0-201 6 No Information PsyTxPt And Family 45 Minutes [facility], [address] [place], [address], [place] tel:[phone] [facility] Behavioral Health anxiety (chief complaint) Bipolar disord, crnt epsd depress, sev, w/o psych featuresCanna bis use, unspecified, uncomplicated Mar-2 3-201 6 No Information OFFICE/OUTPA TIENT VISIT, [facility], [address] [place], [address], [place] tel:[phone] [facility] Adult Medicine [place] MRI results (chief complaint) 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 Apr- 6 No Information PsyTxPt And Family 45 Minutes [facility], [address] [place], [address], [place] tel:[phone] [facility] Behavioral Health anxiety (chief complaint) Bipolar disord, crnt epsd depress, sev, w/o psych featuresCanna bis use, unspecified, uncomplicated Apr- 6 No Information PsyTxPt And Family 45 Minutes [facility], [address] [place], [address], [place] tel:[phone] [facility] Behavioral Health anxiety (chief complaint) Bipolar disord, crnt epsd depress, sev, w/o psych featuresCanna bis use, unspecified, uncomplicated 6 No Information PsyTXPt And Family 60 Min [facility], [address] [place], [address], [place] tel:[phone] [facility] Behavioral Health Bipolar disord, crnt epsd depress, sev, w/o psych featuresCanna bis use, unspecified, uncomplicated Mar- 6 No Information OFFICE/OUTPA TIENT VISIT, [facility], [address] [place], [address], [place] tel:[phone] [facility] Adult Medicine [place] Lower back pain (chief complaint)Med refill (chief complaint) Dorsalgia, unspecified 6 No Information OFFICE/OUTPA TIENT VISIT, [facility], [address] [place] [address], [address], [place] tel:[phone] [facility] Adult Medicine [place] Follow Up of Last visit (chief complaint) Other dorsalgiaUnsp ecified abdominal pain 6 No Information Psych Dx Eval [facility], [address] [place], [address], [place] tel:[phone] [facility] Behavioral Health Initial Assessment (chief complaint) Bipolar disord, crnt epsd depress, sev, w/o psych featuresCanna bis use, unspecified, uncomplicated 6 Helder Letriece. [address] [facility], [id number] [address] [place] [address], [id number], . tel:[phone] OFFICE/OUTPA TIENT VISIT, [facility], [address] [place] [address], [address], [place] tel:[phone] [facility] Adult Medicine Results (chief complaint)Jamie k pain (chief complaint) Pain in right knee 0 6 No Information [facility], [address] [place] [address], [address], [place] tel:[phone] [facility] Adult Medicine [place] Blood work results (chief complaint)Jamie k pain (chief complaint) PrediabetesOt her dorsalgia 5 No Information OFFICE/OUTPA TIENT VISIT, [facility], [address] [place] [address], [address], [place] tel:[phone] [facility] Adult Medicine Follow Up of Last visit (chief complaint)BP check (chief complaint) Morbidly overweightAnk le pain 5 No Information OFFICE/OUTPA TIENT VISIT, [facility], [address] [place] [address], [address], [place] tel:[phone] [facility] Adult Medicine [place] Follow Up of Last visit (chief complaint) abdominal painAnkle pain 5 No Information OFFICE/OUTPA TIENT VISIT, [facility], [address] [place] [address], [address], [place] tel:[phone] [facility] Adult Medicine [place] Follow Up of ER with pain (chief complaint) abdominal painBack pain 5 No Information OFFICE/OUTPA TIENT VISIT, [facility], [address] [place] [address], [address], [place] tel:[phone] [facility] Adult Medicine [place] Blood work results (chief complaint)X ray results (chief complaint) Liver and spleen enlargement - 5 No Information OFFICE/OUTPA TIENT VISIT, [facility], [address] [place] [address], [address], [place] tel:[phone] [facility] Adult Medicine [place] lab results (chief complaint) Prediabetic nonclinical diabetesVitam in D deficiencyAbn ormal function test of the liver Fe 5 No Information OFFICE/OUTPA TIENT VISIT, [facility], [address] [place] [address], [address], [place] tel:[phone] [facility] Adult Medicine [place] Med refill (chief complaint)Fol low Up of ER with stomach pain (chief complaint)jamie k pain (chief complaint)hyp ertension (chief complaint) abdominal painBack painHypertens ion 5 No Information OFFICE/OUTPA TIENT VISIT, [facility], [address] [place], [address], [place] tel:[phone] [facility] Adult Medicine [place] Med refill Tramadol (chief complaint) Issue of repeat prescriptions 4 No Information [facility], [address] [place] [address], [address], [place] tel:[phone] [facility] Behavioral Health Cannabis dependence, unspecified usePosttrauma tic stress disorderMajor depressive affective disorder, recurrent episode, moderate degree 4 No Information OFFICE/OUTPA TIENT VISIT, [facility], [address] [place] [address], [address], [place] tel:[phone] [facility] Adult Medicine [place] Back and neck pain (chief complaint)Med refill (chief complaint) Knee painBack painIssue of repeat prescriptions 4 No Information OFFICE/OUTPA TIENT VISIT, [facility], [address] [place] [address], [address], [place] tel:[phone] [facility] Adult Medicine [place] c/o right side lower back pain (chief complaint) Back pain 4 No Information OFFICE/OUTPA TIENT VISIT, [facility], [address] [place] [address], [address], [place] tel:[phone] [facility] Adult Medicine [place] Med refill (chief complaint) Unspecified internal derangement of kneeEncounter for administrativ e purposeIssue of repeat prescriptions 4 No Information PsyTXPT And Family 30 Minutes [facility], [address] [place] [address], [address], [place] tel:[phone] [facility] Behavioral Health AnxietyDrug-i nduced mood disorderPostt raumatic stress disorderMajor depressive affective disorder, recurrent episode, moderate degreeCannabi s dependence, unspecified use 3- 4 No Information OFFICE/OUTPA TIENT VISIT, EST [facility], [address] [place] [address], [address], [place] tel:[phone] [facility] Behavioral Health anxiety (chief complaint) AnxietyCannab is abuseDrug-ind uced mood disorderPostt raumatic stress disorderMajor depressive affective disorder, recurrent episode, moderate degree 0 1- 4 No Information [facility], [address] [place] [address], [address], [place] tel:[phone] [facility] Adult Medicine [place] Med refill (chief complaint)Vom iting (chief complaint) No Information 4 No Information PsyTXPT And Family 30 Minutes [facility], [address] [place] [address], [facility], [place] tel:[phone] [facility] Behavioral Health No Information 0 2 4 No Information Psych Diag Eval W/Med Serv [facility], [address] [place] [address], [address], [place] tel:[phone] [facility] Behavioral Health depression (chief complaint) Major depressive affective disorder, recurrent episode, moderate degreeCannabi s dependence, unspecified useAnxietyPos ttraumatic stress disorderDrug- induced mood disorder 4 No Information PsyTxPt And Family 45 Minutes [facility], [address] [place] [address], [address], [place] tel:[phone] [facility] Behavioral Health No Information 0 4 No Information [facility], [address] [place] [address], [address], [place] tel:[phone] [facility] Adult Medicine [place] No Information 0 4 No Information PsyTxPt And Family 45 Minutes [facility], [address] [place] [address], [address], [place] tel:[phone] [facility] Behavioral Health No Information Apr-2 4 No Information Psych Dx Eval [facility], [address] [place] [address], [address], [place] tel:[phone] [facility] Behavioral Health depression (chief complaint) Major depressive affective disorder, recurrent episode, moderate degreeCannabi s dependence, unspecified useAnxietyPos ttraumatic stress disorder 4 No Information OFFICE/OUTPA TIENT VISIT, [facility], [address] [place], [address], [place] tel:[phone] [facility] Adult Medicine [place] Med refill (chief complaint) GENERALIZED PAIN 4 No Information OFFICE/OUTPA TIENT VISIT, [facility], [address] [place], [address], [place] tel:[phone] [facility] Adult Medicine [place] Pain med refill (chief complaint) Backache 4 No Information OFFICE/OUTPA TIENT VISIT, [facility], [address] [place], [address], [place] tel:[phone] [facility] Adult Medicine [place] Pain medication (chief complaint) BackacheSpasm of muscleUnspeci fied internal derangement of knee 3 No Information OFFICE/OUTPA TIENT VISIT, [facility], [address] [place] [address], [address], [place] tel:[phone] [facility] Adult Medicine [place] back pain (chief complaint) BackacheSpasm of muscle 3 No Information PREV VISIT, [facility] [place], AGE 18-39 [facility], [address] [place] [address], [address], [place] tel:[phone] [facility] Adult Medicine [place] Physical (chief complaint) EXAM EARS & HEARING NECRoutine Medical ExamInfluenza VaccineBackac heObesity, MorbidNEED FOR PROPHYLACTIC VACCINATION WITH COMBINED DIPHTHERIA-TE TANUS-PERTUSS IS (DTP) (DTAP) VACCINE 3 No Information [facility], [address] [place], [address], [place] tel:[phone] [facility] Dental No Information 3 Mika Cantor. [address] [facility], [id number] [address] [place] [address], [id number], [place]. tel:[phone] Referring Provider: Devaughn Brennan, [address] [facility] [id number] [facility], [place], [address] . tel:[phone] [facility], [address] [place] [address], [address], tel:[phone] Conversion URINARY TRACT INFECTIONHELI COBACTER PYLORI (H. PYLORI) INFECTION 0 No Information [facility], [address] [place] [address], [facility], [place] tel:[phone] [facility] Adult Medicine No Information 0 No Information [facility], [address] [place] [address], [facility], [place] tel:[phone] Conversion abdominal painESOPHAGEA L REFLUXexposed to venereal disease 0 No Information NEW Level 3 - Detailed [facility], [address] [place] [address], [facility], tel:[phone] [facility] Adult Medicine No Information 0 No Information Family History Family Member Type Diagnosis Age At Onset Mother Problem (finding) Anxiety Mother Problem (finding) hypertension Mother Problem (finding) depression Problem (finding) Family history of Diabe noe mellitus Problem (finding) Family history of Liver disease Mother Problem (finding) migraine Maternal aunt Problem (finding) breast cancer Immunizations Vaccine Date Status Comments Flulaval administered Note: Con sent given by patient. Influenza vaccine information sheet reviewed with client along with possible side effects and what to do in case of a serious reaction. Pt expressed understanding and had no further questions or concerns. Vaccination tolerated well. ; Source: New Immunization Record Influenza, injectable, trivalent, split virus, preservative free, 3 years and older Afluria [id number] administered Source: New Immu nization Record Influenza, seasonal, injectable administered Source: New Immuniza tion Record Influenza, seasonal, injectable administered Source: New Immuniza tion Record Tdap administered Source: New Imm unization Record flu (split) preservative magdi e, 3 yrs or older administered Source: New Immuniza tion Record Payers Payer name Insurance type Covered constitution party ID Authoranitha black(s) IAN Szymanski [id number] IAN Ramirez A [id number] IAN Ramirez A [id number] IAN Ramirez A [id number] IAN Szymanski [id number] Social History Type Description Quantity Date Captured Comments Sex Female Smoking Status No Information Sexual Orientation Straight or heterosexual Gender Identity Female Chief Complaint And Reason For Visit No Information Reason For Referral Reason For Referral No Information Plan Of Treatment Date Type Action Status Goal Tobacco cessation counseling completed Goal Dietary management education , guidance, and counseling completed Goal Dietary management education , guidance, and counseling completed Goal Tobacco cessation counseling completed Goal Dietary management education , guidance, and counseling completed Goal Tobacco cessation counseling completed Goal Tobacco cessation counseling completed Goal Dietary management education , guidance, and counseling completed Goal Dietary management education , guidance, and counseling completed Goal Tobacco cessation counseling completed Goal Tobacco cessation counseling completed Goal Dietary management education , guidance, and counseling completed Goal Dietary management education , guidance, and counseling completed Goal Dietary management education , guidance, and counseling completed Goal Tobacco cessation counseling completed Goal Dietary management education , guidance, and counseling completed Goal Tobacco cessation counseling completed Goal Dietary management education , guidance, and counseling completed Goal Dietary management education , guidance, and counseling completed Goal Dietary management education , guidance, and counseling completed Goal Lifestyle education regardin g diet completed Goal Lifestyle education regardin g diet completed Goal Lifestyle education regardin g diet completed Goal Dietary management education , guidance, and counseling completed Goal Dietary management education , guidance, and counseling completed Goal Dietary management education , guidance, and counseling completed Goal Tobacco cessation counseling completed Goal Dietary management education , guidance, and counseling completed Goal Tobacco cessation counseling completed Goal Tobacco cessation counseling completed Goal Tobacco cessation counseling completed Goal Tobacco cessation counseling completed Goal Tobacco cessation counseling completed Goal Tobacco cessation counseling completed Referral Ordered: Referrals: Location: [facility] Podiatry ordered Referral Ordered: Referrals: Home Care Services. Evaluate and treat ordered Referral Ordered: Referrals: Breast Surgeon. Evaluate and treat. Surgery Appointment date/timeframe: 07/27/2018 ordered Referral Ordered: Referrals: Neurology. Evaluate and treat ordered Referral Ordered: Referrals: Cardiology. Evaluate and treat ordered Referral Ordered: Referrals: Colon and Rectal Surgery. Evaluate and treat ordered Referral Ordered: Referrals: Bariatric Surgery. Evaluate and treat ordered Referral Ordered: Referrals: Neurosurgery. Evaluate and treat ordered Referral Ordered: Referrals: Surgery. Evaluate and treat ordered Referral Ordered: Referrals: Orthopedic Surgery. Evaluate and treat ordered Referral Ordered: X-RAY EXAM OF KNEE, 3 Right knee ordered Referral Ordered: Referral: Phys Med/Rehab. Consult. ordered History Of Present Illness Encounter Date Complaint History Of Prese nt Illness Telehealth Patient or Guard laure has given consent and understands they can opt out and refuse services at any time. Patient identification was confirmed at start of visit.Type of call (Audio or Video/Audio): Video/AudioStart Time: 1:07:53 PMStop Time: 1:26What was discussed: DM, Kidney stones, ConstipationThis information was recorded by: Dr. Dawson was part of this call (list ALL participants): Patient, Dr. Ryan@ UTI and Kidney Vhrprs20/29/20 - was treated for UTI and kidney stones in ER with ABx on 05/18. labs show as E.coli.09/16/19 - currently urine has foul odor. and c/o Left and right abdominal Pain on an off. 09/19. hx of Kidney stones in may. only drinkin 1 L of water daily. Advised her to drink Min on 2L (4x 500ml). will start Flomax, and order stone analysis if she can get one in a strainer. @ DM Type - CBG 170. Fasting 80-90. Evening CBG around 170-190. Last a1c 5.9 (02/2017). Patient complaint with medications as prescribed. A/P = Well Controlled DM. No med changes for now. Advised to Nkqdx4hd post meal sugars and not random. May consider decreasing Lantus. Check A1C.06/16/17 - CBG 150. Labs A1C 5.9. Hold Metformin the morning of qivzrtw13/26/18 - POC A1C 6.603/07/29 - FS 227. POC A1C 6.5. Does not eat well or often. Has BM with every meals. Frequent feeling of low blood sugar and has to take candy. Drink lot of soda (ie william lina in office today). A/p = Overall controlled but fluctuates from high to lows. Change to Tresiba and decrease to 40 units from 50. C/w metformin. New Glucometer.12/23/18 - FS 158. POC A1C 7.0. Requesting FS Bri. 06/09/19 - FS > 421 (has not eaten today). POC A1C 11. c/o frequent urination. Has been homeless until recently. Using meds as prescribed but diet is poor. A/P = Uncontrolled. Increase Tresiba to 60 units. Start Ozempic 0.5mg weekly. 09/16/19 - c/o hypoglycemia ( sweats and shakes) 2-4x week with sugar in 60s. appetite is on an off due to stress. will decrease Tresiba to 44 units@ Nzhvkserhcla37/29/20 - has hard BM every 2-3 days and over last month having blood with first BM. Not very painful. She has hx of fissure with surgery to repair it. A/P = Chronic constipation. Start Linzess. 145mcg. F/u in 3 weeks09/16/19 - with Linzess, having daily BMs and not straining.@ Breast /29/20 - noted on both breasts on CT scan. Will do diagnostic Mammogram. f/u in 3 weeks09/16/19 - Mammo on 06/22 was normal. @ Lung rtypjv30/29/20 - noted on CT of abdomen. No Cough or increased SOB form baseline. Will do CXR f/u in 3 weeks.09/16/19 - x-ray was normal @ Lymphadentitis?12/25/18 - Recent Strep throat and given PCN but still has sore throat. Augmentin x 5 day for lymphadentitis?@ Onfqxkrkl97/13/19 - takes a few Fioricet Plus Excedrin to abort headaches. Headaches occr multiple times a week and taking abortive meds every1-2 days. Poor sleep. A/P = Amitriptyline HS. aim to reduce abortive med use. @ Chronic Low back pain with Radicular symptoms + Large Nnlayr95/07/18 - reports hx of low back pain with pain traveling down back of leg to feet. Taking lyrica 50mg BID. A/P = Need to review imaging (pt reports disk problems) and consider titrating Mkrcdi02/21/18 - MRI showing L4-L5 Degenerative Changes. Moderate Canal Stenosis and Neural foraminal stenosis. Increase to 150mg lyrica. M.M. provider info given.04/15/18 - Pain i still very bad. Radiates into legs with numbness. Unable to stand or walk for too long without pain. No saddle anesthesias. A/p = Breast Surgeon Ifvvmuly80/10/19 - Back pain stills severe. Appt in 07/2018. Has failed physical therapy in past. Want to increase lyrica. A/p = Uncontrolled. Increase lyrica to 225mg BID. f/u in 1 month12/23/18 - Was taking lyrica 225mg but ran out. At that time pain was better. Currently pain in bad. Did not go see surgeon for Breat Reduction A/p = consider Pain management at f/u . last resort surgery, refill lyirca which helped@ HTN11/05/17 - 134/82. Complaining of dizziness. A/P = Fair control. stop HCTZ and increase lisinopril 04/15/18 - 131/76. says she is not taking any BP meds right now. A/p = Controlled without medication. Will get BP machine from [facility] Sknfnuyq84/13/19 - 117/77. @ Central Abdominal Pain04/15/18 - For along time has episode central abdominal pain. Noticed bulge in center of stomach. Was told she has hernia in the past. Has central wall defect on exam A/p = Likely Symptomatic abdominal hernia. Will refer to gen surg in near future.@ Dizziness - light llaaotinp41/23//18 other provider - Patient presents to the office on advice of RN for evaluation of dizziness and malaise. She has been without insulin for a few days but no DKA noted in urine. She admits to chronic issue of feeling dizzy when standing in the shower. Symptoms have been worsening for the last week or so with laughing, coughing and speaking loudly. She also has history of chronic back pain maintained on Lyrica and tramadol. Per the patient I spend more time on the floor than I do standing . She does not have any ambulatory aides inside nor outside of the home. A/P Cards and Neuro Referral.11/05/17 - Still complaining of symptom. Denies vertigo like symptoms. She does not eat or drink well and says she takes meds as prescribed. Has fallen multiple times. A/P = Med side effect vs dehydration vs Cardiogenic. Stop HCTZ. f/u with CardiologyCHRONIC PROBLEMS NOT ADDRESSED@ Chronic abdominal Pain with Diarrhea (likely IBD-D)06/30/17 - burning/sharp/cramping, on and off daily in b/l abdomens at sides. Certain food like spicy and fried make it worse. Takes Dicyclomine 2x a day for spams and has BMs after every meal. Poor appetite and losing weight (desired). Nausea at times. Epigastric on pain on exam. A/P Possible H.pylori + IBS? Breath test in 2 weeks after holding pantoprazole for 14 days. f/u in 3 weeks. Consider imodium RX and reviewing low FODMAP diet@ Fffdrtw01/03/18 - She went to bariatric seminar, but there was a mixup with getting a bariatric appt. Has chronic back pain, Right Knee OA HTN, DM, Fatty Liver. A/P Will refer again in the future.06/30/17 - almost completed [employer] [facility] but there was a problem with 2 missed nutrition appt (patient tells me it was the programs fault due to scheduling). She went to but the wrong referral was sent to them.@ Anal Ijkgklc67/03/18 - Patient having surgery to sphincter on 06/19/17. @ Histories Allergies: Tylenol (liver toxicity)SurgHx: Cholecystectomy, Tubal ligation, x3, Lateral Internal Sphincterotomy MHx: DM, HTN, PTSD, Anxiety/Depression, Chronic Back Pain, Right Knee Pain, Anal Fissure, Fatty Liver (GAYTAN), ObesityFH: Diabetes. M- HTN, Anxiety, Depression. Aunt - Breast CancerRCRI: 1METs: 4-10.EKG: NSR, non-specific T-wave changeOSA: (Y/N/Risk) - NoneSmokin-cig a day. Quit in the past. Started at 18Alcohol: NoneIllicit drugs: Smokes Marijuana Daily for pain (would consider medical MarijuanaScreening: Mammo 06/29/19 RESOLVED PROBLEM Hosp F/u @ UTI06/09/19 - was treated for UTI and kidney stones in ER with ABx on 05/18. labs show as E.coli. @ DM Type - CBG 170. Fasting 80-90. Evening CBG around 170-190. Last a1c 5.9 (02/2017). Patient complaint with medications as prescribed. A/P = Well Controlled DM. No med changes for now. Advised to Baqbg5yb post meal sugars and not random. May consider decreasing Lantus. Check A1C.06/16/17 - CBG 150. Labs A1C 5.9. Hold Metformin the morning of /26/18 - POC A1C 6.603/07/29 - FS 227. POC A1C 6.5. Does not eat well or often. Has BM with every meals. Frequent feeling of low blood sugar and has to take candy. Drink lot of soda (ie william lina in office today). A/p = Overall controlled but fluctuates from high to lows. Change to Tresiba and decrease to 40 units from 50. C/w metformin. New Glucometer.12/23/18 - FS 158. POC A1C 7.0. Requesting FS Bri. 06/09/19 - FS > 421 (has not eaten today). POC A1C 11. c/o frequent urination. Has been homeless until recently. Using meds as prescribed but diet is poor. A/P = Uncontrolled. Increase Tresiba to 60 units. Start Ozempic 0.5mg weekly. @ Baycxcfjqnot33/29/20 - has hard BM every 2-3 days and over last month having blood with first BM. Not very painful. She has hx of fissure with surgery to repair it. A/P = Chronic constipation. Start Linzess. 145mcg. F/u in 3 weeks@ Breast lbjttvmoqcwbhe56/29/20 - noted on both breasts on CT scan. Will do diagnostic Mammogram. f/u in 3 weeks@ Lung tctfon62/29/20 - noted on CT of abdomen. No Cough or increased SOB form baseline. Will do CXR f/u in 3 weeks.@ Lymphadentitis?12/25/18 - Recent Strep throat and given PCN but still has sore throat. Augmentin x 5 day for lymphadentitis?@ Akarlyxkz44/13/19 - takes a few Fioricet Plus Excedrin to abort headaches. Headaches occr multiple times a week and taking abortive meds every1-2 days. Poor sleep. A/P = Amitriptyline HS. aim to reduce abortive med use. @ Chronic Low back pain with Radicular symptoms + Large Ahvaxi34/07/18 - reports hx of low back pain with pain traveling down back of leg to feet. Taking lyrica 50mg BID. A/P = Need to review imaging (pt reports disk problems) and consider titrating Qqwxuj96/21/18 - MRI showing L4-L5 Degenerative Changes. Moderate Canal Stenosis and Neural foraminal stenosis. Increase to 150mg lyrica. M.M. provider info given.04/15/18 - Pain i still very bad. Radiates into legs with numbness. Unable to stand or walk for too long without pain. No saddle anesthesias. A/p = Breast Surgeon Gptitxik07/10/19 - Back pain stills severe. Appt in 07/2018. Has failed physical therapy in past. Want to increase lyrica. A/p = Uncontrolled. Increase lyrica to 225mg BID. f/u in 1 month12/23/18 - Was taking lyrica 225mg but ran out. At that time pain was better. Currently pain in bad. Did not go see surgeon for Breat Reduction A/p = consider Pain management at f/u . last resort surgery, refill lyirca which helped@ HTN11/05/17 - 134/82. Complaining of dizziness. A/P = Fair control. stop HCTZ and increase lisinopril 04/15/18 - 131/76. says she is not taking any BP meds right now. A/p = Controlled without medication. Will get BP machine from [facility] Kpxdkchm61/13/19 - 117/77. @ Central Abdominal Pain04/15/18 - For along time has episode central abdominal pain. Noticed bulge in center of stomach. Was told she has hernia in the past. Has central wall defect on exam A/p = Likely Symptomatic abdominal hernia. Will refer to gen surg in near future.@ Dizziness - light bhuhvmlks60/23//18 other provider - Patient presents to the office on advice of RN for evaluation of dizziness and malaise. She has been without insulin for a few days but no DKA noted in urine. She admits to chronic issue of feeling dizzy when standing in the shower. Symptoms have been worsening for the last week or so with laughing, coughing and speaking loudly. She also has history of chronic back pain maintained on Lyrica and tramadol. Per the patient I spend more time on the floor than I do standing . She does not have any ambulatory aides inside nor outside of the home. A/P Cards and Neuro Referral.11/05/17 - Still complaining of symptom. Denies vertigo like symptoms. She does not eat or drink well and says she takes meds as prescribed. Has fallen multiple times. A/P = Med side effect vs dehydration vs Cardiogenic. Stop HCTZ. f/u with CardiologyCHRONIC PROBLEMS NOT ADDRESSED@ Chronic abdominal Pain with Diarrhea (likely IBD-D)06/30/17 - burning/sharp/cramping, on and off daily in b/l abdomens at sides. Certain food like spicy and fried make it worse. Takes Dicyclomine 2x a day for spams and has BMs after every meal. Poor appetite and losing weight (desired). Nausea at times. Epigastric on pain on exam. A/P Possible H.pylori + IBS? Breath test in 2 weeks after holding pantoprazole for 14 days. f/u in 3 weeks. Consider imodium RX and reviewing low FODMAP diet@ Lfgjvzo33/03/18 - She went to bariatric seminar, but there was a mixup with getting a bariatric appt. Has chronic back pain, Right Knee OA HTN, DM, Fatty Liver. A/P Will refer again in the future.06/30/17 - almost completed [employer] [facility] but there was a problem with 2 missed nutrition appt (patient tells me it was the programs fault due to scheduling). She went to but the wrong referral was sent to them.@ Anal Peycplk05/03/18 - Patient having surgery to sphincter on 06/19/17. @ Histories Allergies: Tylenol (liver toxicity)SurgHx: Cholecystectomy, Tubal ligation, x3, Lateral Internal Sphincterotomy MHx: DM, HTN, PTSD, Anxiety/Depression, Chronic Back Pain, Right Knee Pain, Anal Fissure, Fatty Liver (GAYTAN), ObesityFH: Diabetes. M- HTN, Anxiety, Depression. Aunt - Breast CancerRCRI: 1METs: 4-10.EKG: NSR, non-specific T-wave changeOSA: (Y/N/Risk) - NoneSmokin-cig a day. Quit in the past. Started at 18Alcohol: NoneIllicit drugs: Smokes Marijuana Daily for pain (would consider medical MarijuanaRESOLVED PROBLEM follow up @ Lymphadentitis ?12/25/18 - Recent Strep throat and given PCN but still has sore throat. Augmentin x 5 day for lymphadentitis?@ Megmlmvaq84/13/19 - takes a few Fioricet Plus Excedrin to abort headaches. Headaches occr multiple times a week and taking abortive meds every1-2 days. Poor sleep. A/P = Amitriptyline HS. aim to reduce abortive med use. @ Chronic Low back pain with Radicular symptoms + Large Mcnbxk83/07/18 - reports hx of low back pain with pain traveling down back of leg to feet. Taking lyrica 50mg BID. A/P = Need to review imaging (pt reports disk problems) and consider titrating Ctnjmd24/21/18 - MRI showing L4-L5 Degenerative Changes. Moderate Canal Stenosis and Neural foraminal stenosis. Increase to 150mg lyrica. M.M. provider info given.04/15/18 - Pain i still very bad. Radiates into legs with numbness. Unable to stand or walk for too long without pain. No saddle anesthesias. A/p = Breast Surgeon Iaiojjnz01/10/19 - Back pain stills severe. Appt in 07/2018. Has failed physical therapy in past. Want to increase lyrica. A/p = Uncontrolled. Increase lyrica to 225mg BID. f/u in 1 month12/23/18 - Was taking lyrica 225mg but ran out. At that time pain was better. Currently pain in bad. Did not go see surgeon for Breat Reduction A/p = consider Pain management at f/u . last resort surgery, refill lyirca which helped@ DM Type - CBG 170. Fasting 80-90. Evening CBG around 170-190. Last a1c 5.9 (02/2017). Patient complaint with medications as prescribed. A/P = Well Controlled DM. No med changes for now. Advised to Ukcsl6up post meal sugars and not random. May consider decreasing Lantus. Check A1C.06/16/17 - CBG 150. Labs A1C 5.9. Hold Metformin the morning of /26/18 - POC A1C 6.603 - FS 227. POC A1C 6.5. Does not eat well or often. Has BM with every meals. Frequent feeling of low blood surgar and has to take candy. Drink lot of soda (ie william lina in office today). A/p = Overall controlled but fluctuates from high to lows. Change to Tresiba and decrease to 40 units from 50. C/w metformin. New Glucometer.12/23/18 - FS 158. POC A1C 7.0. Requesting FS Bri. @ HTN11/05/17 - 134/82. Complaining of dizziness. A/P = Fair control. stop HCTZ and increase lisinopril 04/15/18 - 131/76. says she is not taking any BP meds right now. A/p = Controlled without medication. Will get BP machine from [facility] Recnsuhj44/13/19 - 117/77. @ Central Abdominal Pain04/15/18 - For along time has episode central abdominal pain. Noticed bulge in center of stomach. Was told she has hernia in the past. Has central wall defect on exam A/p = Likely Symptomatic abdominal hernia. Will refer to gen surg in near future.@ Dizziness - light ugpeifofs68/23//18 other provider - Patient presents to the office on advice of RN for evaluation of dizziness and malaise. She has been without insulin for a few days but no DKA noted in urine. She admits to chronic issue of feeling dizzy when standing in the shower. Symptoms have been worsening for the last week or so with laughing, coughing and speaking loudly. She also has history of chronic back pain maintained on Lyrica and tramadol. Per the patient I spend more time on the floor than I do standing". She does not have any ambulatory aides inside nor outside of the home. A/P Cards and Neuro Referral.11/05/17 - Still complaining of symptom. Denies vertigo like symptoms. She does not eat or drink well and says she takes meds as prescribed. Has fallen multiple times. A/P = Med side effect vs dehydration vs Cardiogenic. Stop HCTZ. f/u with CardiologyCHRONIC PROBLEMS NOT ADDRESSED@ Chronic abdominal Pain with Diarrhea (likely IBD-D)06/30/17 - burning/sharp/cramping, on and off daily in b/l abdomens at sides. Certain food like spicy and fried make it worse. Takes Dicyclomine 2x a day for spams and has BMs after every meal. Poor appetite and losing weight (desired). Nausea at times. Epigastric on pain on exam. A/P Possible H.pylori + IBS? Breath test in 2 weeks after holding pantoprazole for 14 days. f/u in 3 weeks. Consider imodium RX and reviewing low FODMAP diet@ Rpkerry32/03/18 - She went to bariatric seminar, but there was a mixup with getting a bariatric appt. Has chronic back pain, Right Knee OA HTN, DM, Fatty Liver. A/P Will refer again in the future.06/30/17 - almost completed [employer] [facility] but there was a problem with 2 missed nutrition appt (patient tells me it was the programs fault due to scheduling). She went to but the wrong referral was sent to them.@ Anal Ipharsl43/03/18 - Patient having surgery to sphincter on 06/19/17. @ Histories Allergies: Tylenol (liver toxicity)SurgHx: Cholecystectomy, Tubal ligation, x3, Lateral Internal Sphincterotomy MHx: DM, HTN, PTSD, Anxiety/Depression, Chronic Back Pain, Right Knee Pain, Anal Fissure, Fatty Liver (GAYTAN), ObesityFH: Diabetes. M- HTN, Anxiety, Depression. Aunt - Breast CancerRCRI: 1METs: 4-10.EKG: NSR, non-specific T-wave changeOSA: (Y/N/Risk) - NoneSmokin-cig a day. Quit in the past. Started at 18Alcohol: NoneIllicit drugs: Smokes Marijuana Daily for pain (would consider medical MarijuanaRESOLVED PROBLEMS@ Hospital F/u for Sialadenitis on right side06/10/18 - was in EN in [facility]. for Sialadenitis that started the previous friday. Given Augmentin and advised to use sour candy and lemon to help. Pain has greatly improved but not back to baseline yet. Advised pt to complete Abx and c/w sour and lemon. routine F/u @ Hospital F/u f or Sialadenitis on right side06/10/18 - was in EN in [facility]. for Sialadenitis that started the previous friday. Given Augmentin and advised to use sour candy and lemon to help. Pain has greatly improved but not back to baseline yet. Advised pt to complete Abx and c/w sour and lemon.@ Chronic Low back pain with Radicular symptoms + Large Rrdyyx29/07/18 - reports hx of low back pain with pain traveling down back of leg to feet. Taking lyrica 50mg BID. A/P = Need to review imaging (pt reports disk problems) and consider titrating Tkrjdh24/21/18 - MRI showing L4-L5 Degenerative Changes. Moderate Canal Stenosis and Neural foraminal stenosis. Increase to 150mg lyrica. M.M. provider info given.04/15/18 - Pain i still very bad. Radiates into legs with numbness. Unable to stand or walk for too long without pain. No saddle anesthesias. A/p = Breast Surgeon Gpndxaqk36/10/19 - Back pain stills severe. Appt in 07/2018. Has failed physical therapy in past. Want to increase lyrica. A/p = Uncontrolled. Increase lyrica to 225mg BID. f/u in 1 month@ Central Abdominal Pain04/15/18 - For along time has episode central abdominal pain. Noticed bulge in center of stomach. Was told she has hernia in the past. Has central wall defect on exam A/p = Likely Symptomatic abdominal hernia. Will refer to gen surg in near future.@ HTN11/05/17 - 134/82. Complaining of dizziness. A/P = Fair control. stop HCTZ and increase lisinopril 04/15/18 - 131/76. says she is not taking any BP meds right now. A/p = Controlled without medication. Will get BP machine from [facility]@ DM Type - CBG 170. Fasting 80-90. Evening CBG around 170-190. Last a1c 5.9 (02/2017). Patient complaint with medications as prescribed. A/P = Well Controlled DM. No med changes for now. Advised to Xoype0bs post meal sugars and not random. May consider decreasing Lantus. Check A1C.06/16/17 - CBG 150. Labs A1C 5.9. Hold Metformin the morning of ivdevml48/26/18 - POC A1C 6.603/07/29 - FS 227. POC A1C 6.5. Does not eat well or often. Has BM with every meals. Frequent feeling of low blood surgar and has to take candy. Drink lot of soda (ie william lina in office today). A/p = Overall controlled but fluctuates from high to lows. Change to Tresiba and decrease to 40 units from 50. C/w metformin. New Glucometer.@ Dizziness - light asfayvmcb99/23//18 other provider - Patient presents to the office on advice of RN for evaluation of dizziness and malaise. She has been without insulin for a few days but no DKA noted in urine. She admits to chronic issue of feeling dizzy when standing in the shower. Symptoms have been worsening for the last week or so with laughing, coughing and speaking loudly. She also has history of chronic back pain maintained on Lyrica and tramadol. Per the patient I spend more time on the floor than I do standing . She does not have any ambulatory aides inside nor outside of the home. A/P Cards and Neuro Referral.11/05/17 - Still complaining of symptom. Denies vertigo like symptoms. She does not eat or drink well and says she takes meds as prescribed. Has fallen multiple times. A/P = Med side effect vs dehydration vs Cardiogenic. Stop HCTZ. f/u with CardiologyCHRONIC PROBLEMS NOT ADDRESSED@ Chronic abdominal Pain with Diarrhea (likely IBD-D)06/30/17 - burning/sharp/cramping, on and off daily in b/l abdomens at sides. Certain food like spicy and fried make it worse. Takes Dicyclomine 2x a day for spams and has BMs after every meal. Poor appetite and losing weight (desired). Nausea at times. Epigastric on pain on exam. A/P Possible H.pylori + IBS? Breath test in 2 weeks after holding pantoprazole for 14 days. f/u in 3 weeks. Consider imodium RX and reviewing low FODMAP diet@ Ztbsoeq90/03/18 - She went to bariatric seminar, but there was a mixup with getting a bariatric appt. Has chronic back pain, Right Knee OA HTN, DM, Fatty Liver. A/P Will refer again in the future.06/30/17 - almost completed [employer] [facility] but there was a problem with 2 missed nutrition appt (patient tells me it was the programs fault due to scheduling). She went to but the wrong referral was sent to them.@ Anal Fbueagj69/03/18 - Patient having surgery to sphincter on 06/19/17. @ Histories Allergies: Tylenol (liver toxicity)SurgHx: Cholecystectomy, Tubal ligation, x3, Lateral Internal Sphincterotomy MHx: DM, HTN, PTSD, Anxiety/Depression, Chronic Back Pain, Right Knee Pain, Anal Fissure, Fatty Liver (GAYTAN), ObesityFH: Diabetes. M- HTN, Anxiety, Depression. Aunt - Breast CancerRCRI: 1METs: 4-10.EKG: NSR, non-specific T-wave changeOSA: (Y/N/Risk) - NoneSmokin-cig a day. Quit in the past. Started at 19Alcohol: NoneIllicit drugs: Smokes Marijuana Daily for pain (would consider medical Marijuana fatigue The patient pres ents with back pain, fatigue and muscle weakness. Risk factors include depression and obesity. The symptoms are aggravated by exercise, exertion, pain and stress. palpitations It occurs occasi onally. The problem is unchanged. Associated symptoms include chest pain and dizziness. Dizziness The patient desc ribes it as (an) imbalance. It occurs while bending and exercising. Symptom is aggravated by bending. Associated symptoms include chest pain. routine f/u Requesting help with transportation - will sign [employer] new walker since current one has broken breaks. I adjusted the height for her todayRequest help at home - will order VN and CHILD DEVELOPMENT SPECIALIST@ Chronic Low back pain with Radicular symptoms + Large Tkgwpw69/07/18 - reports hx of low back pain with pain traveling down back of leg to feet. Taking lyrica 50mg BID. A/P = Need to review imaging (pt reports disk problems) and consider titrating Rhikuk29/21/18 - MRI showing L4-L5 Degenerative Changes. Moderate Canal Stenosis and Neural foraminal stenosis. Increase to 150mg lyrica. M.M. provider info given.04/15/18 - Pain i still very bad. Radiates into legs with numbness. Unable to stand or walk for too long without pain. No saddle anesthesias. A/p = Breast Surgeon Referral@ Central Abdominal Pain04/15/18 - For along time has episode central abdominal pain. Noticed bulge in center of stomach. Was told she has hernia in the past. Has central wall defect on exam A/p = Likely Symptomatic abdominal hernia. @ HTN11/05/17 - 134/82. Complaining of dizziness. A/P = Fair control. stop HCTZ and increase lisinopril 04/15/18 - 131/76. says she is not taking any BP meds right now. A/p = Controlled without medication. Will get BP machine from [facility]@ DM Type - CBG 170. Fasting 80-90. Evening CBG around 170-190. Last a1c 5.9 (02/2017). Patient complaint with medications as prescribed. A/P = Well Controlled DM. No med changes for now. Advised to Biavi5mh post meal sugars and not random. May consider decreasing Lantus. Check A1C.06/16/17 - CBG 150. Labs A1C 5.9. Hold Metformin the morning of hfvtugi35/26/18 - POC A1C 6.603/07/29 - FS 227. POC A1C 6.5. Does not eat well or often. Has BM with every meals. Frequent feeling of low blood surgar and has to take candy. Drink lot of soda (ie william lina in office today). A/p = Overall controlled but fluctuates from high to lows. Change to Tresiba and decrease to 40 units from 50. C/w metformin. New Glucometer.@ Dizziness - light cyaazfahi32/23//18 other provider - Patient presents to the office on advice of RN for evaluation of dizziness and malaise. She has been without insulin for a few days but no DKA noted in urine. She admits to chronic issue of feeling dizzy when standing in the shower. Symptoms have been worsening for the last week or so with laughing, coughing and speaking loudly. She also has history of chronic back pain maintained on Lyrica and tramadol. Per the patient I spend more time on the floor than I do standing . She does not have any ambulatory aides inside nor outside of the home. A/P Cards and Neuro Referral.11/05/17 - Still complaining of symptom. Denies vertigo like symptoms. She does not eat or drink well and says she takes meds as prescribed. Has fallen multiple times. A/P = Med side effect vs dehydration vs Cardiogenic. Stop HCTZ. f/u with CardiologyCHRONIC PROBLEMS NOT ADDRESSED@ Chronic abdominal Pain with Diarrhea (likely IBD-D)06/30/17 - burning/sharp/cramping, on and off daily in b/l abdomens at sides. Certain food like spicy and fried make it worse. Takes Dicyclomine 2x a day for spams and has BMs after every meal. Poor appetite and losing weight (desired). Nausea at times. Epigastric on pain on exam. A/P Possible H.pylori + IBS? Breath test in 2 weeks after holding pantoprazole for 14 days. f/u in 3 weeks. Consider imodium RX and reviewing low FODMAP diet@ Xbxkyts97/03/18 - She went to bariatric seminar, but there was a mixup with getting a bariatric appt. Has chronic back pain, Right Knee OA HTN, DM, Fatty Liver. A/P Will refer again in the future.06/30/17 - almost completed [employer] [facility] but there was a problem with 2 missed nutrition appt (patient tells me it was the programs fault due to scheduling). She went to but the wrong referral was sent to them.@ Anal Auligoa48/03/18 - Patient having surgery to sphincter on 06/19/17. @ Histories Allergies: Tylenol (liver toxicity)SurgHx: Cholecystectomy, Tubal ligation, x3, Lateral Internal Sphincterotomy MHx: DM, HTN, PTSD, Anxiety/Depression, Chronic Back Pain, Right Knee Pain, Anal Fissure, Fatty Liver (GAYTAN), ObesityFH: Diabetes. M- HTN, Anxiety, Depression. Aunt - Breast CancerRCRI: 1METs: 4-10.EKG: NSR, non-specific T-wave changeOSA: (Y/N/Risk) - NoneSmokin-cig a day. Quit in the past. Started at 19Alcohol: NoneIllicit drugs: Smokes Marijuana Daily for pain (would consider medical Marijuana c/o Arm Pain @ Dizziness - li ght iziuyinff35/23//18 other provider - Patient presents to the office on advice of RN for evaluation of dizziness and malaise. She has been without insulin for a few days but no DKA noted in urine. She admits to chronic issue of feeling dizzy when standing in the shower. Symptoms have been worsening for the last week or so with laughing, coughing and speaking loudly. She also has history of chronic back pain maintained on Lyrica and tramadol. Per the patient I spend more time on the floor than I do standing . She does not have any ambulatory aides inside nor outside of the home. A/P Cards and Neuro Referral.11/05/17 - Still complaining of symptom. Denies vertigo like symptoms. She does not eat or drink well and says she takes meds as prescribed. Has fallen multiple times. A/P = Med side effect vs dehydration vs Cardiogenic. Stop HCTZ. f/u with Cardiology@ HTN11/05/17 - 134/82. Complaining of dizziness. A/P Fair control. stop HCTZ and increase lisinopril CHRONIC PROBLEMS NOT ADDRESSED@ DM Type - CBG 170. Fasting 80-90. Evening CBG around 170-190. Last a1c 5.9 (02/2017). Patient complaint with medications as prescribed. A/P = Well Controlled DM. No med changes for now. Advised to Uflkl5yo post meal sugars and not random. May consider decreasing Lantus. Check A1C.06/16/17 - CBG 150. Labs A1C 5.9. Hold Metformin the morning of svaucxk34/21/18 - CBG 138. 11/05/17 - FS A1C 6.6@ Chronic Low back pain with Radicular vryjuhcp81/07/18 - reports hx of low back pain with pain traveling down back of leg to feet. Taking lyrica 50mg BID. A/P Need to review imaging (pt reports disk problems) and consider titrating Mqjcya55/21/18 - L4-L5 Degenerative Changes. Moderate Canal Stenosis and Neural foraminal stenosis. Increase to 150mg lyrica. M.M. provider info given.@ Chronic abdominal Pain06/30/17 - burning/sharp/cramping, on and off daily in b/l abdomens at sides. Certain food like spicy and fried make it worse. Takes Dicyclomine 2x a day for spams and has BMs after every meal. Poor appetite and losing weight (desired). Nausea at times. Epigastric on pain on exam. A/P Possible H.pylori + IBS? Breath test in 2 weeks after holding pantoprazole for 14 days. f/u in 3 weeks. Consider imodium RX and reviewing low FODMAP diet@ Nciaatm61/03/18 - She went to bariatric seminar, but there was a mixup with getting a bariatric appt. Has chronic back pain, Right Knee OA HTN, DM, Fatty Liver. A/P Will refer again in the future.06/30/17 - almost completed [employer] [facility] but there was a problem with 2 missed nutrition appt (patient tells me it was the programs fault due to scheduling). She went to but the wrong referral was sent to them.@ Anal Cjxjiig73/03/18 - Patient having surgery to sphincter on 06/19/17. @ Histories Allergies: Tylenol (liver toxicity)SurgHx: Cholecystectomy, Tubal ligation, x3, Lateral Internal Sphincterotomy MHx: DM, HTN, PTSD, Anxiety, Chronic Back Pain, Right Knee Pain, Anal Fissure, Fatty Liver (GAYTAN), ObesityFH: Diabetes. M- HTN, Anxiety, Depression. Aunt - Breast CancerRCRI: 1METs: 4-10.EKG: NSR, non-specific T-wave changeOSA: (Y/N/Risk) - NoneSmokin-cig a day. Quit in the past. Started at 19Alcohol: NoneIllicit drugs: Smokes Marijuana Daily for pain (would consider medical Marijuana dizzy/lightheaded with falls Pat ieyamil presents to the office on advice of RN for evaluation of dizziness and malaise. She has been without insulin for a few days but no DKA noted in urine. She admits to chronic issue of feeling dizzy when standing in the shower. Symptoms have been worsening for the last week or so with laughing, coughing and speaking loudly. She also has history of chronic back pain maintained on Lyrica and tramadol. Per the patient I spend more time on the floor than I do standing . 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 Per pt, symptoms present for 3 days. Pt says she's out of her diabetic medications. Pt says laughter, activity and speaking loudly increases her symptoms. Blood glucose measured = 110, pt's last meal was about 20 hours ago. She says she does not have an appetite. Skin warm, dry and intact. Denies cough. Lungs clear at all curran with normal respiration rate and rhythm. No tremors. Denies palpitations and chest pain. Normal pulse rate and palpable at all extremities. S1 S2 heart sounds with regular rhythm. No vomiting. Pt has steady gait with strong muscle tone bilaterally. PMH: HTN, DMVS: BP 116/72, HR 91, Temp 98.0, RR 18, O2 sat on RA 95%, Pain = 10. Assessment reviewed with provider; patient will be seen in the Adult Medicine clinic today. Ryan Snow RN. Diabetes Examination The 41 Year old female presents for evaluation of Diabetes Examination pt last fasting blood sugar was 176 pt last A1C was 06/12/17 5.9 VA blurry for distance mainly small prints as well , pt wear glasses for distance pt notes flashes OU Note no other discomfort routine eye exam. Lab results Requesting urea breath test results. Results negative.Pt continues to have upper abdominal pain. Associated with nausea. Denies vomiting, diarrhea constipation. Hx of cholecystectomy. US in 2016 showed hepatic steatosis and splenomegaly. LFT in 02/2017 normal. Pain continues despite taking dicyclomine and pantoprazole.C/o pruritic rash since august 13. Started after going swimming in a [place]. Rash is on chest, arms, legs. Has not tried anything to treat symptoms. back Pain f/u @ Chronic Low ba ck pain with Radicular qthmvils81/07/18 - reports hx of low back pain with pain traveling down back of leg to feet. Taking lyrica 50mg BID. A/P Need to review imaging (pt reports disk problems) and consider titrating Dawyvy90/21/18 - L4-L5 Degenerative Changes. Moderate Canal Stenosis and Neural foraminal stenosis. Increase to 150mg lyrica. M.M. provider info given.@ Chronic abdominal Pain06/30/17 - burning/sharp/cramping, on and off daily in b/l abdomens at sides. Certain food like spicy and fried make it worse. Takes Dicyclomine 2x a day for spams and has BMs after every meal. Poor appetite and losing weight (desired). Nausea at times. Epigastric on pain on exam. A/P Possible H.pylori + IBS? Breath test in 2 weeks after holding pantoprazole for 14 days. f/u in 3 weeks. Consider imodium RX and reviewing low FODMAP diet@ Isetocy43/03/18 - She went to bariatric seminar, but there was a mixup with getting a bariatric appt. Has chronic back pain, Right Knee OA HTN, DM, Fatty Liver. A/P Will refer again in the future.06/30/17 - almost completed [employer] [facility] but there was a problem with 2 missed nutrition appt (patient tells me it was the programs fault due to scheduling). She went to but the wrong referral was sent to them.CHRONIC PROBLEMS NOT ADDRESSED@ DM Type - CBG 170. Fasting 80-90. Evening CBG around 170-190. Last a1c 5.9 (02/2017). Patient complaint with medications as prescribed. A/P = Well Controlled DM. No med changes for now. Advised to Hoome2uh post meal sugars and not random. May consider decreasing Lantus. Check A1C.06/16/17 - CBG 150. Labs A1C 5.9. Hold Metformin the morning of ggmutsb28/21/18 - CBG 138. @ Anal Qonyskb71/03/18 - Patient having surgery to sphincter on 06/19/17. @ Histories A/P: Patient is low/moderate risk for a low Risk procedure. She can proceed with surgery as planned and is medically optimized. Her labs are within normal limits for surgery. Hold Metformin Morning of surgery.Procedure: Lateral Internal Sphincterotomy @ [facility] with Dr. Josh Singleton, on 06/19/17Anesthesia Hx: General.Allergies: Tylenol (liver toxicity)SurgHx: Cholecystectomy, Tubal ligation, x3MHx: DM, HTN, PTSD, Anxiety, Chronic Back Pain, Right Knee Pain, Anal Fissure, Fatty Liver (GAYTAN), ObesityFH: Diabetes. M- HTN, Anxiety, Depression. Aunt - Breast CancerRCRI: 1METs: 4-10.EKG: NSR, non-specific T-wave changeOSA: (Y/N/Risk) - NoneSmokin-cig a day. Quit in the past. Started at 19Alcohol: NoneIllicit drugs: Smokes Marijuana Daily for pain (would consider medical Marijuana PRE-OP Pre-OP #1 A/P: P atient is low/moderate risk for a low Risk procedure. She can proceed with surgery as planned and is medically optimized. Her labs are within normal limits for surgery. Hold Metformin Morning of surgery.Procedure: Lateral Internal Sphincterotomy @ [facility] with Dr. Josh Singleton, on 06/19/17Anesthesia Hx: General.Allergies: Tylenol (liver toxicity)SurgHx: Cholecystectomy, Tubal ligation, x3MHx: DM, HTN, PTSD, Anxiety, Chronic Back Pain, Right Knee Pain, Anal Fissure, Fatty Liver (GAYTAN), ObesityFH: Diabetes. M- HTN, Anxiety, Depression. Aunt - Breast CancerRCRI: 1METs: 4-10.EKG: NSR, non-specific T-wave changeOSA: (Y/N/Risk) - NoneSmokin-cig a day. Quit in the past. Started at 19Alcohol: NoneIllicit drugs: Smokes Marijuana Daily for pain (would consider medical Marijuana @ Anal Nznhkna11/03/18 - Patient having surgery to sphincter on 06/19/17. @ DM Type - CBG 170. Fasting 80-90. Evening CBG around 170-190. Last a1c 5.9 (02/2017). Patient complaint with medications as prescribed. A/P = Well Controlled DM. No med changes for now. Advised to Xwxhb3rf post meal sugars and not random. May consider decreasing Lantus. Check A1C.06/16/17 - CBG 150. Labs A1C 5.9. Hold Metformin the morning of surgery@ Chronic Low back pain with Radicular /07/18 - reports hx of low back pain with pain traveling down back of leg to feet. Taking lyrica 50mg BID. A/P Need to review imaging (pt reports disk problems) and consider titrating Lyrica@ Drejfhe56/03/18 - She went to bariatric seminar, but there was a mixup with getting a bariatric appt. Has chronic back pain, Right Knee OA HTN, DM, Fatty Liver. A/P Will refer again in the future. Pre-OP #1 A/P: Patient is low/moderate risk for a low Risk procedure. PENDING her lab work She can proceed with surgery as planned and is medically optimized. Procedure: Lateral Internal Sphincterotomy @ [facility] with Dr. Josh Singleton, on 06/19/17Anesthesia Hx: General.Allergies: Tylenol (liver toxicity)SurgHx: Cholecystectomy, Tubal ligation, x3MHx: DM, HTN, PTSD, Anxiety, Chronic Back Pain, Right Knee Pain, Anal Fissure, Fatty Liver (GAYTAN), ObesityFH: Diabetes. M- HTN, Anxiety, Depression. Aunt - Breast CancerRCRI: 1METs: 4-10.EKG: NSR, non-specific T-wave changeOSA: (Y/N/Risk) - NoneSmokin-cig a day. Quit in the past. Started at 19Alcohol: NoneIllicit drugs: Smokes Marijuana Daily for pain (would consider medical Marijuana @ Anal Tjklmmq54/03/18 - Patient having surgery to sphincter on 06/19/17. @ DM Type - CBG 170. Fasting 80-90. Evening CBG around 170-190. Last a1c 5.9 (02/2017). Patient complaint with medications as prescribed. A/P = Well Controlled DM. No med changes for now. Advised to Dsxvx0ma post meal sugars and not random. May consider decreasing Lantus. Check A1C.@ Zgcqoge16/03/18 - She went to bariatric seminar, but there was a mixup with getting a bariatric appt. Has chronic back pain, Right Knee OA HTN, DM, Fatty Liver. A/P Will refer again in the future. Cough Onset: 2 days ag o. The patient describes the cough as productive (of green sputum). Associated symptoms include chills, cough, dyspnea on exertion, nasal congestion, night sweats, pleuritic pain, post-nasal drainage, rhinorrhea and wheezing. Pertinent negatives include fatigue. Additional information: We all sick at home. Has not tried OTC medications. Denies dyspnea. C/o mild wheezing has been without albuterol. Hemorrhoids Onset: 2 weeks a go. Severity: severe. The patient describes it as aching and burning. It occurs constantly. The problem worse. Symptom is aggravated by straining at stool. There are no relieving factors. Hemorrhoids (comments) Pt was in the ED at the end of Mar for rectal pain with defecation and bleeding when wiping. Pt was diagnosed with hemorrhoids. ED discharge summary was reviewed during visit. Pt was prescribed Benzacaine; Hydrocortisone 2.5%. Pt is c/o pain worsened with bowel movements. Pt reports pain with flatulence and sitting or lying on buttocks. Follow Up of hypertension Pertin ent negatives include chest pain, claudication, confusion, diaphoresis, dyspnea, epistaxis, fatigue, headache, hematuria, irregular heartbeat/palpitations, nausea, tinnitus, transient weakness, tremor, visual disturbances and vomiting. Additional information: BP today is 142/82 Follow Up of diabetes She Has be en managed with oral medications. Comorbidity: Hypertension. Pertinent negatives include blurred vision, burning of extremities, chest pain, constant hunger, dental disease, diarrhea, dysesthesias, dyspnea, foot ulcers, frequent infections, urinary frequency, heartburn, hypoglycemic episodes, increased fatigue, nocturia, polydipsia, slow healing wounds / sores, weight gain and weight loss. Additional information: glucose today is 142. Follow Up of Hypertension Pertin ent negatives include chest pain, claudication, confusion, diaphoresis, dyspnea, epistaxis, fatigue, headache, hematuria, irregular heartbeat/palpitations, nausea, tinnitus, transient weakness, tremor, visual disturbances and vomiting. Additional information: BP 120/84 Follow Up of Diabetes Comorbidit y: Hypertension. Pertinent negatives include blurred vision, burning of extremities, chest pain, constant hunger, dental disease, diarrhea, dysesthesias, dyspnea, foot ulcers, frequent infections, frequent urination, heartburn, hypoglycemic episodes, increased fatigue, nocturia, polydipsia, slow healing wounds / sores, weight gain and weight loss. Additional information: do not have glucose results and lab work has not been done (was ordered). A1C today is 6.6. Ultrasound results spleen contin ues enlarge , fatty liver (has been evaluated by GI) Follow Up of Diabetes Comorbidit y: Hypertension. Pertinent negatives include blurred vision, burning of extremities, chest pain, constant hunger, dental disease, diarrhea, dysesthesias, dyspnea, foot ulcers, frequent infections, frequent urination, heartburn, hypoglycemic episodes, increased fatigue, nocturia, polydipsia, slow healing wounds / sores, weight gain and weight loss. Additional information: glucose at Home : am 253 to 400's pm 300. Follow Up of Hypertension Pertin ent negatives include chest pain, claudication, confusion, diaphoresis, dyspnea, epistaxis, fatigue, headache, hematuria, irregular heartbeat/palpitations, nausea, tinnitus, transient weakness, tremor, visual disturbances and vomiting. Additional information: BP 118/87 Abdominal pain Pain scale: 9/10 . Additional information: patient did not have abdominal MRI done. Back pain Additional infor candice: her back is chronic , has been evaluated and surgery is needed which she is not ready for. Follow Up of Hypertension Pertin ent negatives include chest pain, claudication, confusion, diaphoresis, dyspnea, epistaxis, fatigue, headache, hematuria, irregular heartbeat/palpitations, nausea, tinnitus, transient weakness, tremor, visual disturbances and vomiting. Additional information: BP 123/85 Follow Up of Diabetes Comorbidit y: Hypertension. Pertinent negatives include blurred vision, burning of extremities, chest pain, constant hunger, dental disease, diarrhea, dysesthesias, dyspnea, foot ulcers, frequent infections, frequent urination, heartburn, hypoglycemic episodes, increased fatigue, nocturia, polydipsia, slow healing wounds / sores, weight gain and weight loss. Additional information: uncontrol glucose. elevated blood sugar She was see [place] [facility] [place]. Her hemoglobin A1c was 10.0% at that time (increaed from 9.1 on 04/08 here). Her home blood sugars have been over 400. She is constantly thristy with a dry mouth, but she is urinating all the time. She feels weak and tired.We started Lantus. She was given a sample and shown how to use it. She gave herself the first dose in the office. diabetes She Has been man aged with oral medications. Comorbidity: Hypertension. Pertinent negatives include chest pain and diarrhea. Additional information: Requesting refills on jentadueto. point of care A1c 9.1%. restless leg Pt has restless legs for past 2 weeks, she is anxious and worried due to her kids being away from home. She has difficulty sleeping and concentrating. She has no suicide thoughts. She denies use of nicotine or marijuana (last use in november). anxiety The patient pres ents with anxious/fearful thoughts, compulsive thoughts, difficulty falling asleep, difficulty staying asleep, excessive worry, fatigue, feelings of guilt, paranoia, poor judgment, racing thoughts and restlessness but denies decreased need for sleep, depressed mood, difficulty concentrating, diminished interest or pleasure, easily startled, feelings of invulnerability, increased energy, hallucinations,decreased libido, loss of appetite or thoughts of or suicide. Rash/frequent urination Patient presents to the office for evauation of rash and itch and frequent urination. The rash has been present in the past. It responded well to steroid cream and antihistamine. She denies any change in food or soap. No swelling of the throat or face.She also complains of frequent urination. Glucose too high to read in office today. She states she has glucoses of 500 or more at home quite often. She is drinking six two liter bottles of william lina per week. She does not like water. Last noted A1c was 6.6% in September 2015UA reflects patient menstruationSmall ketones anxiety The patient pres ents with anxious/fearful thoughts, compulsive thoughts, depressed mood, easily startled, excessive worry, fatigue, feelings of guilt and paranoia but denies decreased need for sleep, difficulty concentrating, difficulty falling asleep, difficulty staying asleep, diminished interest or pleasure, feelings of invulnerability, increased energy, hallucinations,decreased libido, increased libido, loss of appetite, poor judgment, racing thoughts, restlessness or thoughts of or suicide. anxiety The patient pres ents with anxious/fearful thoughts, compulsive thoughts, depressed mood, difficulty concentrating, difficulty falling asleep, difficulty staying asleep, easily startled, excessive worry, fatigue, feelings of guilt, decreased libido, loss of appetite, paranoia, poor judgment, racing thoughts and restlessness but denies decreased need for sleep, diminished interest or pleasure, feelings of invulnerability, increased energy, hallucinations or thoughts of or suicide. abdominal pain Pain scale: 9/10 . Symptoms are not aggravated by pressure to abdomen. Associated symptoms include back pain. Pertinent negatives include bloating, blood in stool, change in appetite, constipation, diaphoresis, diarrhea, dyspnea, fever, flatulence, heartburn, hematuria, jaundice, nausea, vomiting, weight gain and weight loss. Additional information: complaining of pain x 1 week. Follow Up of Hypertension Pertin ent negatives include chest pain, claudication, confusion, diaphoresis, dyspnea, epistaxis, fatigue, headache, hematuria, irregular heartbeat/palpitations, nausea, tinnitus, transient weakness, tremor, visual disturbances and vomiting. Additional information: BP today is 115/77 Follow Up of Diabetes She Has be en managed with oral medications. Comorbidity: Hypertension. Pertinent negatives include blurred vision, burning of extremities, chest pain, constant hunger, dental disease, diarrhea, dysesthesias, dyspnea, foot ulcers, frequent infections, frequent urination, heartburn, hypoglycemic episodes, increased fatigue, nocturia, polydipsia, slow healing wounds / sores, weight gain and weight loss. Additional information: glucose today is 158. Substance abuse The symptoms are reported as being severe. The symptoms occur daily. Relieving factors include Abstaining fromusing illicit drugs. rash The patient pres ents for rash. This episode began suddenly and has lasted varies. The symptom(s) are described as moderate and worse. Affected area(s) include scalp, both hands and both thighs. Additional information: She reports an itchy rash for about a week. She has tried hydrocortisone cream and Benadryl cream without relief. She was treated for scabies about a month ago at the emergency depratment. Her mother has a similar rash, but her rash is focused on her back. She has trouble sleeping due to the itching. Follow Up of Hypertension Pertin ent negatives include chest pain, claudication, confusion, diaphoresis, dyspnea, epistaxis, fatigue, headache, hematuria, irregular heartbeat/palpitations, nausea, tinnitus, transient weakness, tremor, visual disturbances and vomiting. Additional information: today BP is 126/86, patient states at home systolic has up to 190 Blood work results lab results d iscussed with patient and time was allowed time to as questionsPlt 137glucose 149A1C 6.6trig 166 Vitamin D 26 up from anxiety The patient pres ents with anxious/fearful thoughts, compulsive thoughts, depressed mood, difficulty concentrating, difficulty falling asleep, difficulty staying asleep, easily startled, excessive worry, fatigue, feelings of guilt, loss of appetite, paranoia, poor judgment, racing thoughts and restlessness but denies decreased need for sleep, diminished interest or pleasure, feelings of invulnerability, increased energy, hallucinations or thoughts of or suicide. Triage The symptoms beg an 3 days ago. The symptoms are reported as being severe. She states the symptoms are acute. Patient walked in with severe difficulty breathing, she is unable to answer questions as her WOB is so severe, she was able to verbalize that her symptoms have been persisting for 3 days. Renzo asked to listen to the patient to assess her need for a treatment, Renzo gave the verbal order to give a duoneb with 3ml of NaCL and to keep the patient on the pulse ox and check on her every few minutes. VS are remarkable for increased BP, larger cuff will be obtained and we will have MA f/u with ht, wt, and BP. Pt checked half way through treatment and she is breathing more comfortably, notified spinning mule tender that this patient has to be put to the top of the list and that she is in room 16. Report given to Ivette. asthma The initial visi t date was 08/31/2015. Aggravating factors include animals, dust/dust mites and humidity. Associated symptoms include awakening with cough, awakening with dyspnea, awakening with wheeze, hemoptysis, post nasal drainage, productive cough and wheezing. Pertinent negatives include dry cough and excessive sputum. Additional information: Maintained on proair prn for asthma. Quit smoking 3 months ago. Increased chest tightness over the past 3 days. Came in due to diffculty breathing. Has AC at home. Cough productive for mucous with small amount of blood- only one episode of blood this morning Has been using pro air 5-6 times per day over the past 3 days. Prior to this, not using pro air often. asthma (comments) Reports she th rew up this morning, says that this was phlegm she threw up. Reports waking up at night drenched in sweat,, this is is every night and has occurred for a while, she reports. Anxiety The patient pres ents with anxious/fearful thoughts, compulsive thoughts, depressed mood, difficulty concentrating, difficulty falling asleep, difficulty staying asleep, diminished interest or pleasure, easily startled, excessive worry, fatigue, feelings of guilt, paranoia, poor judgment, racing thoughts and restlessness but denies decreased need for sleep, feelings of invulnerability, increased energy, hallucinations, loss of appetite or thoughts of or suicide. Follow Up of Last visit Complain ing of right upper quandrant pain - worse in the past week with episode of sweating. Denies naseau or vomiting anxiety The patient pres ents with anxious/fearful thoughts, compulsive thoughts, depressed mood, difficulty concentrating, easily startled, excessive worry, fatigue, feelings of guilt, paranoia, poor judgment, racing thoughts and restlessness but denies decreased need for sleep, difficulty falling asleep, difficulty staying asleep, feelings of invulnerability, increased energy, hallucinations, loss of appetite or thoughts of or suicide. anxiety The patient pres ents with anxious/fearful thoughts, compulsive thoughts, depressed mood, difficulty concentrating, easily startled, excessive worry, fatigue, feelings of guilt, paranoia, poor judgment, racing thoughts and restlessness but denies decreased need for sleep, difficulty falling asleep, difficulty staying asleep, diminished interest or pleasure, feelings of invulnerability, increased energy, hallucinations, loss of appetite or thoughts of or suicide. anxiety This is a follow up visit. Related symptoms are unstable. There is continuation of initial symptoms and improvement of initial symptoms. The patient reports functioning as somewhat difficult. The Global Assessment of Functioning Scale (GAF) = 53. The patient presents with anxious/fearful thoughts. Initial Assessment The patient p resents with anxious/fearful thoughts, compulsive thoughts, depressed mood, difficulty concentrating, difficulty falling asleep, difficulty staying asleep, easily startled, excessive worry, fatigue, feelings of guilt, loss of appetite, paranoia, poor judgment, racing thoughts and restlessness but denies decreased need for sleep, feelings of invulnerability, increased energy, hallucinations or thoughts of or suicide. The patient's relieving factors are a good response to medication (Paxil). anxiety This is a follow up visit. Related symptoms are unstable. There is continuation of initial symptoms. The patient reports functioning as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
--- OUTSIDE RECORDS SUMMARY | 2024-05-19 17:54 | XMS_ITS | Encounter Summary ---
Author Organization [employer] Address [address] [place] [address] [address] [place] [address] Care Team Providers Care Buckle Wire Inserter Name Role Phone Mami [facility] Primary Care Provider [phone] Vera Mcgovern PharmD Unavailable [phone] Reason for Referral * Consultation (Routine) - Authorized Specialty Diagnoses / Procedures Referred By Contac t Referred To Contact Pharmacy Diagnoses Type 2 diabetes mellitus with other specified complication, with long-term current use of insulin (CMS/HCC) Lisha Maxwell MD [address] [place] [address] Phone: tel: fax: Referral ID Status Reason Start Date Expiration Date Visits Requested Visits Authorized [id number] Authorized Consult and Treat 04/05/2024 04/05/2025 6 6 Encounter Details Date Type Department Care Team (Late st Contact Info) Description 04/05/2024 Orders Only [facility] [address] [place] [address] Lisha Maxwell MD [address] [place] [address] Type 2 diabetes mellitus with other specified complication, with long-term current use of insulin (CMS/HCC) (Primary Dx) Social History Tobacco Use Types Packs/Day Years [...] 1:00 PM EDT Medication Management [facility] [address], [place] [id number] Sophie Zapata, PharmD [address] [place] [address] 06/24/2024 3:30 PM EDT Office Visit [facility] [address] [place] [address] Anaid Núñez, OD [address] [place] [address] Scheduled Referrals Name Type Priority Associated Diagnoses Orde r Schedule Referral to Pharmacy CDTM Outpatient Referral Routine Type 2 diabetes mellitus with other specified complication, with long-term current use of insulin ([facility]) Ordered: 04/05/2024 documented as of this encounter Goals Goal Patient Goal Type Associated Problems Recent Progress Patient-Stated? Author Hemoglobin A1c < 7 Result Component 12.1(02/17/19 11:43 AM EST) No Vera Bean PharmD Record your blood sugar as directed Result Component No Vera Bean PharmD documented as of this encounter Visit Diagnoses Diagnosis Type 2 diabetes mellitus with other specified complication, with long-term current use of insulin (CMS/[facility])- Primary documented in this encounter Additional Health Concerns Assessment Noted Time PHQ-9 Depression Total Score: 0 02/17/19 11:42 AM EST documented as of this encounter Care Teams Buckle Wire Inserter Relationship Specialty Start Date End Date [facility] [address] [place] [address] PCP - General Family Medicine 11/08/22 Vera Mcgovern PharmD [address] [place] [address] Pharmacist Internal Medicine 08/20/23 documented as of this encounter
[2024-05-19] MEDS: HYDROmorphone HCl 1 MG/ML SYRINGE IVPUSH ×2 (18:24→19:58)
[2024-05-19 18:37] LABS: Lipase 193 U/L (8-78)
[2024-05-19 18:39] LABS: Reflex Lactate? Lactic Acid Added
[2024-05-19 19:54] LABS: Appearance Urine Clear; Color Urine Yellow; Glucose Urine UA Negative (Negative); Leukocyte Esterase Urine Moderate (2+) (Negative); Nitrite Urine Positive (Negative); Specific Gravity - Urine >= 1.030 (1.005-1.025); UMIC TRIGGER UACC YES; Urine Blood Large (3+) (Negative); Urine Ketones Negative (Negative); Urine Protein 100 (2+) mg/dL (Neg-Trace)
[2024-05-19 19:59] LABS: Bacteria Urine 1+ (None Seen); Hyaline Casts Urine 0-2 /LPF (0-2); RBC Urine >20 /HPF (0-2); Squamous Epithelial Cell Urine 0-2 /HPF (0-2); UACC Culture Trigger YES; WBC Urine >50 /HPF (0-5)
--- NOTE | 2024-05-19 20:02 | PC.NURSE ---
Umer INFORMATION [employer] aware of BP.
[2024-05-19 20:13] LABS: ~Lactic Acid-LAB USE ONLY 3.2 mmol/L (0.5-2.0)
--- NOTE | 2024-05-19 21:08 | PC.NURSE ---
pt woke up, tearful, reporting pain returned at 10/10. Umer VEGETABLE FARMWORKER aware and states will be at bedside to evaluate patient.
[2024-05-19 21:51] LABS: Reflex Lactate? 2 Y
[2024-05-19 22:11] LABS: Bilirubin Direct 0.4 mg/dL (0.0-0.5); C Reactive Protein 2.84 mg/dL (< or = 0.50)
[2024-05-19] MEDS: LORazepam 2 MG/ML VIAL 1 MG IVPUSH (22:17)
--- NOTE | 2024-05-19 23:00 | PC.NURSE ---
after receiving iv ativan pt appears more comfortable, no longer tearful/restless. heel reducer attempting to draw repeat lactic now. pt ambulated with steady gait to bathroom and back to room.
--- NOTE | 2024-05-19 23:05 | P.HPHOSP_ITS ---
History of Present Illness Date of Service: 05/19/24 Attending physician on admission: Wilbert Hart Chief Complaint: abd pain, UTI Pt is a 48 yo f with a pmhx significant for new diagnosis cirrhosis, recurrent UTIs, kidney stones, PTSD, obesity, T2DM, HLD, HTN, GERD, hx bacteremia secondary to infected L ureteral stone, and mood disorder, who presented to the ED due to diffuse abdominal pain and flank pain as well as subjective fever, urinary retention, bladder pressure and malodorous urine for the past 5 days. She describes 10/ diffuse abdominal pain reports that it is sharp with some associated nausea and vomiting. No hematemesis or hematochezia. She was diagnosed with the [facility] 2 days ago but left AMA before receiving antibiotics or being seen. She went to the clinic today and was sent to the ED to rule out pyelonephritis. She reports she was recently diagnosed with cirrhosis but has yet to see a benefits consulting analyst outpt. She has also had a significant weight loss over the past few months, she reports she went from 347 lb to 272. She also reports decreased appetite, only eating 1 meal per day. She has no history of alcohol use except for occasional weekends with friends and her 20s. She also reports diarrhea recently, but none over the past few days. The patient is a very poor historian. Review of Systems 2 Constitutional: Constitutional: Denies body ache(s), Denies chills, Denies fatigue, Reports fever(s), Denies headache(s) and Reports weight loss Eyes: Eyes: Denies change in vision and Denies photophobia ENT: Denies headache(s), Denies nasal congestion, Denies nasal discharge and Denies sore throat Cardiovascular: Cardiovascular: Denies chest pain, Denies rapid heart rate, Denies leg edema, Denies lightheadedness and Denies dyspnea Respiratory: Respiratory: Denies chest congestion, Denies cough, Denies dyspnea and Denies wheezing Gastrointestinal: Gastrointestinal: Reports abdominal pain, Denies melena, Denies hematochezia, Denies coffee ground emesis, Reports diarrhea, Reports nausea, Reports vomiting and Denies hematemesis Genitourinary: Genitourinary: Reports as per HPI, Denies hematuria and Reports urinary hesitancy Musculoskeletal: Musculoskeletal: Reports back pain Integumentary/Breasts: Skin/Breast: Denies rash Neurologic: Denies confusion and Denies headache(s) Psychiatric: Psychiatric: Denies confusion Endocrine: Endocrine: Denies fatigue Hematologic/Lymphatic: Hematologic/Lymphatic: Denies easy bleeding and Denies easy bruising Allergic/Immunologic: Allergic/Immunologic: Denies wheezing PMFSH Medical History Chronic abdominal pain PTSD (post-traumatic stress disorder) Cirrhosis Cholecystectomy planned delivery delivered Migraine Asthma Diabetes Spleen enlarged Enlarged liver Hernia Functional capacity: independent ambulation Family History Mother Diabetes Anxiety Depressed Arthritis Migraine Surgical History Status post anal fissurectomy Social History Household Members: Spouse and Children Household Members Other:: she has 6 children and 12 grandchildren- [address] on the [address] Housing: House Do you presently have visiting nurse or other home services: No Alcohol intake: former Comment: back Patient Tobacco Use Status: Current everyday Tobacco user Tobacco use type: Cigarette Cigarette Packs Per Day: 0.5 Cigarettes Per Day: 10.0 Years Smoked: 30 Smoked in Last 30 Days: Yes e-Cigarette/Vaping Use: Never Used Use of substances other than those prescribed or required for medical reasons: Yes Substance Use Type: Marijuana Advance Directives: No Advance Directives Information Provided: No Patient : No service: No Current occupational status: unemployed Narrative: Smokes marijuana daily. Working on quitting tobacco, currently 3 cigarettes per day. No frequent alcohol Meds Allergies Allergy/AdvReac Type Severity Reaction Status Date / Time acetaminophen [From TYLENOL] Allergy Unknown LIVER Verified 05/19/24 16:13 SWELLING Active Medications: Current Medications Calcium Carbonate (Calcium Carbonate 750 Mg Tab.Chew) 750 mg PO Q4H PRN PRN Reason: Heartburn Dextrose (Dextrose 50 % 25 Gm/50 Ml Syringe) 25 gm IVPUSH Q15M PRN; Protocol PRN Reason: per Hypoglycemia Standing Ord. Glucose (Glucose Gel 15 Gm Gel..Gram.) 15 gm PO Q15M PRN; Protocol PRN Reason: per Hypoglycemia Standing Ord. Hydromorphone HCl (Hydromorphone Hcl 1 Mg/Ml Syringe) 0.5 mg IVPUSH Q4H PRN; Protocol PRN Reason: Pain, Severe (Pain Scale 7-10) Lactated Ringer's (Lr) 1,000 mls @ 75 mls/hr IVCONT .[id number] [facility] Insulin Human Lispro (Insulin Lispro 100 Unit/Ml 3 Ml Vial) 0 unit SUBCUT QIDACHS [facility]; Protocol Magnesium Hydroxide (Milk Of Magnesia 30 Ml Oral.Susp) 30 ml PO DAILY PRN PRN Reason: Constipation Melatonin (Melatonin 3 Mg Tablet) 6 mg PO BEDTIME PRN PRN Reason: Insomnia Morphine Sulfate (Morphine Sulfate 4 Mg/Ml Cartridge) 2 mg IVPUSH Q4H PRN; Protocol PRN Reason: Pain, Moderate(Pain Scale 4-6) Nicotine Polacrilex (Nicotine Polacrilex 2 Mg Gum) 2 mg BUCCAL Q2H PRN PRN Reason: Nicotine Cravings Ondansetron HCl (Ondansetron Hcl 4 Mg/2 Ml Vial) 4 mg IVPUSH Q8H PRN PRN Reason: Nausea and Vomiting Polyethylene Glycol (Polyethylene Glycol 3350 17 Gm Powd.Pack) 17 gm PO DAILY PRN PRN Reason: Constipation Sodium Chloride (0.9 % Sodium Chloride Flush 3 Ml Syringe) 3 ml [facility] Medications ?Medication ?Instructions ?Recorded ?Confirmed ?Last Taken ?Type albuterol sulfate 90 mcg/actuation 2 puff PO Q4-6H PRN Wheezing 03/12/21 09/19/23 09/18/23 20:00 History aerosol inhaler (ProAir HFA) buspirone 10 mg tablet 10 mg PO TID anxiety 03/12/21 09/19/23 09/18/23 20:00 History cyclobenzaprine 10 mg tablet 10 mg PO TID 03/12/21 09/19/23 09/18/23 20:00 History duloxetine 60 mg capsule,delayed 60 mg PO DAILY 03/12/21 09/19/23 09/18/23 20:00 History release insulin degludec 200 unit/mL (3 44 unit subcut DAILY 03/12/21 09/19/23 09/18/23 20:00 History mL) subcutaneous pen (Tresiba FlexTouch U-200 insulin) lisinopril 2.5 mg tablet 2.5 mg PO DAILY 03/12/21 09/19/23 09/18/23 20:00 History metformin 500 mg tablet,extended 1,000 mg PO BID 03/12/21 09/19/23 09/18/23 20:00 History release 24 hr pantoprazole 40 mg tablet,delayed 40 mg PO DAILY 03/12/21 09/19/23 09/18/23 20:00 History release prazosin 2 mg capsule 2 mg PO BEDTIME 03/12/21 09/19/23 09/18/23 20:00 History budesonide-formoterol HFA 80 2 puff inhalation BID dyspnea 09/19/23 09/19/23 09/18/23 20:00 History mcg-4.5 mcg/actuation aerosol inhaler (Symbicort) dulaglutide 3 mg/0.5 mL 1.5 mg subcut TH 09/19/23 09/19/23 09/18/23 History subcutaneous pen injector (Trulicity) pregabalin 300 mg PO BID 09/19/23 09/19/23 09/18/23 09:00 History 300 mg propranolol 10 mg tablet 10 mg PO DAILY 09/19/23 09/19/23 09/18/23 20:00 History rosuvastatin 40 mg tablet 40 mg PO BEDTIME 09/19/23 09/19/23 09/18/23 20:00 History Physical Exam 2 Vital Signs and Narrative: Vital Signs: Last Vital Signs Temp 97.6 F 05/19/24 19:03 Pulse 64 05/19/24 20:02 Resp 20 05/19/24 22:20 BP 111/64 05/19/24 22:20 Pulse Ox 95 05/19/24 22:20 O2 Del Method Room Air 05/19/24 22:20 BMI result Body Mass Index 44.1 General: AOx3, no acute distress. Sitting upright in bed comfortably eating a sandwich. Daughter at bedside. Resp: CTA bilaterally CVS: S1, S2, RRR GI: +BS, NT, no distention Skin: Warm, dry Neuro: Cranial nerves II-XII grossly intact bilaterally. Motor grossly intact bilaterally Extremities: No lower extremity edema Psych: Appropriate affect Const: General: No confusion Orientation/consciousness: No confusion Eyes: Direct Ophthalmoscopy: No photophobia Neuro: General: No confusion Results Labs 05/19/24 16:34 05/19/24 16:34 Labs: Laboratory Results - last 24 hr 05/19/24 05/19/24 05/19/24 16:34 16:35 19:41 MCV 89.5 MCH 30.7 MCHC 34.3 RDW 15.9 Plt Count 63 L MPV 11.7 Immature Gran % (Auto) 0.2 Neut % (Auto) 60.7 Lymph % (Auto) 32.6 [place] % (Auto) 5.1 Eos % (Auto) 0.9 Baso % (Auto) 0.5 Lymph # (Auto) 1.4 [place] # (Auto) 0.2 Eos # (Auto) 0.0 Baso # (Auto) 0.0 Abs Immat Gran (auto) 0.01 Absolute Neuts (auto) 2.6 Absolute Nucleated RBC 0.000 Nucleated RBC % (auto) 0.0 Smear Tech's Comments VERIFIED Anion Gap 11 L Estim Creat Clear Calc 91.5 Estimated GFR 59 Random Glucose 118 H Lactic Acid 3.4 H* Lactic Acid F/U @ 2Hr Calcium 9.6 D Magnesium 2.1 Total Bilirubin 1.3 H Direct Bilirubin 0.4 AST 47 H ALT 24 Alkaline Phosphatase 261 H C-Reactive Protein 2.84 H Total Protein 8.1 H Albumin 3.4 L Lipase 193 H Beta-Hydroxybutyrate 0.15 Urine Color Yellow Urine Appearance Clear Urine pH 7.0 Ur Specific [place] >= 1.030 H Urine Protein 100 (2+) H Urine Glucose (UA) Negative Urine Ketones Negative Urine Blood Large (3+) H Urine Nitrite Positive H Ur Leukocyte Esterase Moderate (2+) H Urine RBC >20 H Urine WBC >50 H Ur Squamous Epith Cells 0-2 Urine Bacteria 1+ Hyaline Casts 0-2 Influenza Type A (PCR) NEGATIVE Influenza Type B (PCR) NEGATIVE RSV RNA Qual (PCR) NEGATIVE SARS-CoV-2 RNA (RT-PCR) NEGATIVE 05/19/24 19:47 MCV MCH MCHC RDW Plt Count MPV Immature Gran % (Auto) Neut % (Auto) Lymph % (Auto) [place] % (Auto) Eos % (Auto) Baso % (Auto) Lymph # (Auto) [place] # (Auto) Eos # (Auto) Baso # (Auto) Abs Immat Gran (auto) Absolute Neuts (auto) Absolute Nucleated RBC Nucleated RBC % (auto) Smear Tech's Comments Anion Gap Estim Creat Clear Calc Estimated GFR Random Glucose Lactic Acid Lactic Acid F/U @ 2Hr 3.2 H* Calcium Magnesium Total Bilirubin Direct Bilirubin AST ALT Alkaline Phosphatase C-Reactive Protein Total Protein Albumin Lipase Beta-Hydroxybutyrate Urine Color Urine Appearance Urine pH Ur Specific [place] Urine Protein Urine Glucose (UA) Urine Ketones Urine Blood Urine Nitrite Ur Leukocyte Esterase Urine RBC Urine WBC Ur Squamous Epith Cells Urine Bacteria Hyaline Casts Influenza Type A (PCR) Influenza Type B (PCR) RSV RNA Qual (PCR) SARS-CoV-2 RNA (RT-PCR) Assessment and Plan (1) UTI (urinary tract infection): Status: Acute (2) Intractable abdominal pain: Status: Acute (3) Cirrhosis: Status: Acute (4) Elevated lactic acid level: Status: Acute (5) Thrombocytopenia: Status: Acute (6) Morbid obesity with BMI of 40.0-44.9, adult: Status: Acute (7) Tobacco abuse: Status: Acute Plan Pt is a 48 yo f with a pmhx significant for new diagnosis cirrhosis, recurrent UTIs, kidney stones, PTSD, obesity, T2DM, HLD, HTN, GERD, hx bacteremia secondary to infected L ureteral stone, and mood disorder, who presented to the ED due to diffuse abdominal pain and flank pain as well as subjective fever, urinary retention, bladder pressure and malodorous urine for the past 5 days. UTI - WBC 4.4, vitals stable, no sepsis - UA +, culture pending - started on ceftriaxone in ED, continue - monitor CBC and BMP intractable abd pain - pt reporting severe diffuse abd pain - morphine and dilaudid for pain - CT abd/pelvis with ?mild colitis R colon. no obstructing kidney stones seen. - lipase elevated but no pancreatitis on CT and no increased pain with eating - NPO - GI consult cirrhosis - CT with multiple small varices an collateral vessels and portal HTN - GI consult elevated lactic acid - no sepsis, likely due to cirrhosis, and ?metformin (unclear if pt is taking) - 3.4 then 3.2 and 2.8 on repeat - given 2L IVF in ED, continue LR 75cc/hr thrombocytopenia - secondary to cirrhosis - PLT 63 - monitor CBC Type 2 diabetes - patient currently NPO - sliding scale insulin - resume reduced dose of Lantus 30 units nightly when appropriate, home dose 44 units nightly HTN - hold home meds for now HLD - hold statin due to elevated LFTs GERD - continue PPI tobacco use - smoking cessation encouraged - nicotine gum as needed Class 3 morbid obesity - BMI 44.1 - weight loss encouraged full code VTE prophy: pneumoboots, anticoagulant contraindicated due to thrombocytopenia Patient with UTI and intractable abdominal pain requiring admission for antibiotics and further evaluation including pain management per least 2 midnights stay. Quality Stroke Does the patient have a stroke diagnosis?: No VTE Prior VTE?: No VTE Risk Level:: Medical - moderate - high VTE Device Contraindication: N/A - Device Ordered VTE Drug Contraindication: Treatment Not Indicated
[2024-05-19 23:33] LABS: ~Lactic Acid-LAB USE ONLY 2.8 mmol/L (0.5-2.0)
[2024-05-19] MEDS: Lactated Ringers 1,000 ML 75 ML IVCONT (23:41)
[2024-05-20] MEDS: HYDROmorphone HCl 1 MG/ML SYRINGE 0.5 MG IVPUSH ×2 (00:21→08:26)
[2024-05-20 00:28] LABS: Glucose, Whole Blood 135 mg/dL (60-115)
--- NOTE | 2024-05-20 05:34 | PC.NURSE ---
pt received iv dilaudid prn during downtime, view downtime paperwork. during this time pt was placed in hospital bed, daughter at bedside provided a recliner. vitals are on downtime paperwork. nad. after receiving prn pt has been sleeping, appears comfortable, resp even and unlabored. call salomon within reach.
[2024-05-20 06:33] LABS: Estimated Average Glucose 209 mg/dL; Hemoglobin A1c % 8.9 % (<6.0); Total Hemoglobin (HGBA1C) 3601.0738 umol/L
[2024-05-20 06:37] LABS: Hemoglobin 11.8 g/dl (12.0-16.0); Mean Corpuscular HGB Conc 33.7 g/dl (31.0-35.0); Mean Corpuscular Hemoglobin 30.5 pg (27.0-33.0); Mean Corpuscular Volume 90.4 fL (80.0-98.0); Mean Platelet Volume 10.8 fL (9.4-12.3); Red Blood Count 3.87 X10*6/uL (4.20-5.50); Red Cell Distribution Width 15.9 % (11.0-16.0); White Blood Count 3.6 X10*3/uL (4.8-10.8)
[2024-05-20 06:39] LABS: Platelet Count 54 X10*3/uL (160-400)
[2024-05-20 06:51] LABS: Alanine Aminotransferase 15 U/L (0-31); Albumin Level 2.9 g/dL (3.5-5.0); Alkaline Phosphatase 225 U/L (39-117); Anion Gap 8 (12-20); Aspartate Amino Transferase 41 U/L (5-31); Bilirubin Total 1.2 mg/dL (0.0-1.0); Blood Urea Nitrogen 10 mg/dL (9-16); Calcium 8.9 mg/dL (8.4-10.2); Carbon Dioxide 26 mmol/L (22-29); Chloride 110 mmol/L (96-108); Creatinine Clr Calc Pharmacy 97.3; Estimated Glomerular Filt Rate > 60; Glucose Random 127 mg/dL (60-115); Potassium 3.3 mmol/L (3.3-5.1); Sodium 141 mmol/L (135-145); Total Protein 6.7 g/dL (6.5-8.0)
--- NOTE | 2024-05-20 07:39 | P.CNGI_ITS ---
History of Present Illness Data of Consult Service Date: 05/20/24 Requesting physician: Jackie Bustamante Primary Care Provider: [facility] HPI Reason for consult: newer dx cirrhosis, abd pain, ?colitis 48 YF with cirrhosis(diagnosed 2020 per GI clinic note), recurrent UTIs, kidney stones, PTSD, obesity, T2DM, HLD, HTN, GERD, hx bacteremia secondary to infected L ureteral stone, and mood disorder, seen at [facility] ED on 05/19/24 with diffuse abdominal pain and flank pain associated with subjective fever, nausea, vomiting, urinary retention, bladder pressure and mal-odorous urine for the past week. Hx obtained from the patient and her daughter who was at the bedside Pt described the abdominal pain as intermittent, sharp and diffuse, 10/10 in intensity and radiates to the spine and lower back. Pt states pain started when she was diagnosed with a UTI and is worse when she tried to lay on her left side. Pt denied hematemesis or hematochezia. She also reports decreased appetite, only eating 1 meal per day with weight loss from 347 lb to 272 over the last few months. . She was diagnosed with the UTI at [facility] 2 days ago and AMA before receiving antibiotics or being seen. She went to the clinic today and was sent to the ED to rule out pyelonephritis. PT reports she was recently diagnosed with cirrhosis and is to FU with GLORIA Davenport at [facility] as an outpt. She is also being scheduled for an MRI to FU on a liver lesion. Pt reports having a colonoscopy at [facility] a few months ago which has to be repeated james to suboptimal prep. Pt denies regular alcohol use except she drank occasionally on weekends with friends in her 20s. She admits to smoking 6 cigg daily and takes Marijuana 2-4 times a day She also reports diarrhea recently, but none over the past few days. The patient is a very poor historian. Family hx is positive for alcohol related liver disease on Dad's side of the family and hx of cancer on Mom's side of the family. 05/19/[address] SCAN SHOWED: Changes of cirrhosis and portal hypertension. Mild colonic wall thickening could represent colitis. Review of Systems 2 Review of Systems: Yes all other systems are reviewed and are negative PMFSH Past Medical History Medical History Chronic abdominal pain PTSD (post-traumatic stress disorder) Cirrhosis Cholecystectomy planned delivery delivered Migraine Asthma Diabetes Spleen enlarged Enlarged liver Hernia Family History Family History Mother Diabetes Anxiety Depressed Arthritis Migraine Surgical History Surgical History Status post anal fissurectomy Social History Social History Household Members: Children Household Members Other:: she has 6 children and 12 grandchildren- 2 [address] on the [address] Housing: Apartment Do you presently have visiting nurse or other home services: No Alcohol intake: former Comment: back Patient Tobacco Use Status: Current everyday Tobacco user Tobacco use type: Cigarette Cigarette Packs Per Day: 0.5 Cigarettes Per Day: 4 Years Smoked: 30 Smoked in Last 30 Days: Yes e-Cigarette/Vaping Use: Never Used Patient Interested in Nicotine Replacement: Yes Patient Given Instructions on How to Stop Smoking: No Second Hand Smoke Exposure: No Use of substances other than those prescribed or required for medical reasons: Yes Substance Use Type: Marijuana Substance Use Frequency: Occasionally Last Used Substance: Just Prior to Admission Currently Displaying Signs/Symptoms of Drug Intoxication Withdrawal: No Any prior treatment program specific to substance use: No Have you been hit, kicked, punched, or otherwise hurt by someone within the past year? If so, by whom?: No Do you feel safe in your current relationship?: Yes Is there a partner from a previous relationship who is making you feel unsafe now?: No Are you made to feel afraid or neglected: No Advance Directives: No Advance Directives Information Provided: No Advance Directives on File: No Do you have a plan to hurt others: No Plan Recently lost weight without trying: No Eating poorly because of decreased appetite: No Nutrition Risks: No Nutritional Risk Patient : No : No Poor oral hygiene: No service: No Current occupational status: unemployed Meds Allergies Allergy/AdvReac Type Severity Reaction Status Date / Time acetaminophen [From TYLENOL] Allergy Unknown LIVER Verified 05/19/24 16:13 SWELLING Active Medications: Current Medications Calcium Carbonate (Calcium Carbonate 750 Mg Tab.Chew) 750 mg PO Q4H PRN PRN Reason: Heartburn Ceftriaxone Sodium (Ceftriaxone Sodium 1 Gm Vial) 1 gm IVPUSH Q24H [facility] Dextrose (Dextrose 50 % 25 Gm/50 Ml Syringe) 25 gm IVPUSH Q15M PRN; Protocol PRN Reason: per Hypoglycemia Standing Ord. Glucose (Glucose Gel 15 Gm Gel..Gram.) 15 gm PO Q15M PRN; Protocol PRN Reason: per Hypoglycemia Standing Ord. Hydromorphone HCl (Hydromorphone Hcl 1 Mg/Ml Syringe) 0.5 mg IVPUSH Q4H PRN; Protocol PRN Reason: Pain, Severe (Pain Scale 7-10) Last Admin: 05/20/24 00:21 Dose: 0.5 mg Lactated Ringer's (Lr) 1,000 mls @ 75 mls/hr IVCONT .[id number] [facility] Last Admin: 05/19/24 23:41 Dose: 75 mls/hr Insulin Glargine (Insulin Glargine,Hum.Rec.Anlog 100 Unit/Ml 10 Ml Vial) 30 unit SUBCUT BEDTIME [facility] Insulin Human Lispro (Insulin Lispro 100 Unit/Ml 3 Ml Vial) 0 unit SUBCUT QIDACHS [facility]; Protocol Last Admin: 05/20/24 07:06 Dose: Not Given Magnesium Hydroxide (Milk Of Magnesia 30 Ml Oral.Susp) 30 ml PO DAILY PRN PRN Reason: Constipation Melatonin (Melatonin 3 Mg Tablet) 6 mg PO BEDTIME PRN PRN Reason: Insomnia Morphine Sulfate (Morphine Sulfate 4 Mg/Ml Cartridge) 2 mg IVPUSH Q4H PRN; Protocol PRN Reason: Pain, Moderate(Pain Scale 4-6) Nicotine Polacrilex (Nicotine Polacrilex 2 Mg Gum) 2 mg BUCCAL Q2H PRN PRN Reason: Nicotine Cravings Ondansetron HCl (Ondansetron Hcl 4 Mg/2 Ml Vial) 4 mg IVPUSH Q8H PRN PRN Reason: Nausea and Vomiting Polyethylene Glycol (Polyethylene Glycol 3350 17 Gm Powd.Pack) 17 gm PO DAILY PRN PRN Reason: Constipation Sodium Chloride (0.9 % Sodium Chloride Flush 3 Ml Syringe) [address] [facility] Last Admin: 05/20/24 07:32 Dose: Not Given Home Medications ?Medication ?Instructions ?Recorded ?Confirmed ?Last Taken ?Type albuterol sulfate 90 mcg/actuation 2 puff PO Q4H PRN Wheezing 03/12/21 05/20/24 05/19/24 History aerosol inhaler (ProAir HFA) buspirone 10 mg tablet 10 mg PO TID anxiety 03/12/21 05/20/24 05/19/24 History cyclobenzaprine 10 mg tablet 5 mg PO TID 03/12/21 05/20/24 05/19/24 History duloxetine 60 mg capsule,delayed 60 mg PO DAILY 03/12/21 05/20/24 05/19/24 History release insulin degludec 200 unit/mL (3 44 unit subcut DAILY 03/12/21 05/20/24 05/19/24 History mL) subcutaneous pen (Tresiba FlexTouch U-200 insulin) lisinopril 2.5 mg tablet 2.5 mg PO DAILY 03/12/21 05/20/24 05/19/24 History metformin 500 mg tablet,extended 1,000 mg PO BID 03/12/21 05/20/24 05/19/24 History release 24 hr pantoprazole 40 mg tablet,delayed 40 mg PO DAILY 03/12/21 05/20/24 05/19/24 History release budesonide-formoterol HFA 80 2 puff inhalation BID dyspnea 09/19/23 05/20/24 05/19/24 History mcg-4.5 mcg/actuation aerosol inhaler (Symbicort) pregabalin 300 mg PO BID 09/19/23 05/20/24 05/19/24 History propranolol 10 mg tablet 10 mg PO DAILY 09/19/23 05/20/24 05/19/24 History dulaglutide 4.5 mg/0.5 mL 4.5 mg subcut TU 05/20/24 05/20/24 05/18/24 History subcutaneous pen injector ferrous sulfate 325 mg (65 mg 325 mg PO DAILY 05/20/24 05/20/24 05/19/24 History iron) tablet potassium chloride 20 mEq 20 meq PO BID 05/20/24 05/20/24 05/19/24 History tablet,extended release(part/cryst) spironolactone 25 mg tablet 25 mg PO DAILY 05/20/24 05/20/24 05/19/24 History Physical Exam 2 Vital Signs: Vital Signs: Last Vital Signs Temp 98.3 F 05/19/24 23:29 Pulse 67 05/19/24 23:42 Resp 16 05/19/24 23:42 BP 127/73 05/19/24 23:42 Pulse Ox 98 05/19/24 23:42 O2 Del Method Room Air 05/19/24 23:42 BMI result Body Mass Index 44.1 Const: General: no acute distress Nutritional Appearance: obese (Morbidly obese) Orientation/consciousness: patient oriented x3 HEENT: Head: Yes normal to inspection Ears: hearing grossly normal bilaterally Eyes: Sclerae: sclerae normal Pupils: Equal, round and reactive pupils present Neck: Neck: Yes normal visual inspection Chest: Chest palpation & inspection: normal inspection of the chest Resp: Effort & Inspection: normal respiratory effort Auscultation: clear to auscultation bilaterally Cardio: Palpation: normal PMI Rate: regular rate Rhythm: regular rhythm Heart sounds: S1 normal heart sound present, S2 normal heart sound present and no murmurs GI: Inspection: Yes obesity Palpation (GI): Soft to palpation, nontender and No hepatosplenomegaly present Auscultation: normal bowel sounds Rectal Exam - Female: deferred Skin: General skin exam: no rashes or lesions noted Neuro: General: patient oriented x3, gait normal and moves all extremities Cranial nerves: Yes Equal, round and reactive pupils present Psych: Appearance: grossly normal Mental Status: mental status grossly normal Results Labs 05/20/24 06:29 05/20/24 06:29 Labs: Short CBC 05/19/24 05/20/24 Range/Units 16:34 06:29 WBC 4.4 L 3.6 L (4.8-10.8) X10*3/uL Hgb 13.5 11.8 L (12.0-16.0) g/dl Hct 39.4 D 35.0 L (37.0-47.0) % Plt Count 63 L 54 L (160-400) X10*3/uL BMP 05/19/24 05/20/24 16:34 06:29 Sodium 139 141 Potassium 3.8 D 3.3 Chloride 110 H 110 H Carbon Dioxide 22 26 BUN 11 10 Creatinine 1.00 0.94 Calcium 9.6 D 8.9 D Liver Function 05/19/24 05/20/24 Range/Units 16:34 06:29 Total Bilirubin 1.3 H 1.2 H (0.0-1.0) mg/dL Direct Bilirubin 0.4 (0.0-0.5) mg/dL AST 47 H 41 H (5-31) U/L ALT 24 15 (0-31) U/L Alkaline Phosphatase 261 H 225 H (39-117) U/L Albumin 3.4 L 2.9 L (3.5-5.0) g/dL Urine 05/19/24 Range/Units 19:41 Urine Color Yellow Urine Appearance Clear Urine pH 7.0 (5.0-9.0) Ur Specific [place] >= 1.030 H (1.005-1.025) Urine Protein 100 (2+) H (Neg-Trace) mg/dL Urine Glucose (UA) Negative (Negative) mg/dL Assessment and Plan (1) Thrombocytopenia: Status: Acute (2) Abdominal pain: Status: Acute (3) Cirrhosis: Status: Acute Plan 48 YF with cirrhosis(diagnosed 2020 per GI clinic note), recurrent UTIs, kidney stones, PTSD, obesity, T2DM, HLD, HTN, GERD, hx bacteremia secondary to infected L ureteral stone, and mood disorder, admitted to [facility] on 05/19/24 with diffuse abdominal pain and flank pain associated with subjective fever, nausea, vomiting, urinary retention, bladder pressure and mal-odorous urine for the past week. Cirrhosis is likely due to GAYTAN related to morbid obesity Abd pain is likely a combination of massive splenomegaly and UTI/pyelonephritis. She also reports decreased appetite, only eating 1 meal per day with weight loss from 347 lb to 272 over the last few months. . She was diagnosed with the UTI at [facility] 2 days ago and AMA before receiving antibiotics or being seen. PT reports she was recently diagnosed with cirrhosis and being sceduled to FU with Dr Sarabia (GI at [facility]) as an outpt. She is also being scheduled for an MRI to FU on a liver lesion. RECOMMENDATIONS: 1. Agree with IV antibiotics, anti emetics, PPI and pain medications for pain control 2. Check prothrombin time, hepatitis serologies, iron studies, BRIJESH, ASMA, AMA with am labs Pt can FU with GI at [facility] after discharge. Procedures Date of Service Date of Service: 05/20/24
--- NOTE | 2024-05-20 07:48 | PHA.MEDREC ---
Pharmacy Consult ? Medication Reconciliation Pharmacy has completed the medication reconciliation. Received list from nursing and spoke with patient at bedside. She confirmed her medications, Trulicity is 4.5mg on Tuesdays, Tresiba is 44 units once daily. She states she still takes Lisinopril and does not take prazosin or rosuvastatin.
--- NOTE | 2024-05-20 09:34 | MHC.CM.PN ---
CM met with Patient at bedside, in the ED. Patient lives in an apartment with her Daughter/HCP/Lay and she uses a walker to assist with mobility. Patient receives 2 [employer] hours/day and home/resume said services is the goal. CM has initiated and will follow for dc planning. PCP/DEVELOPMENT LEAD is Angelique Bolaños @ [facility]. Patient will ask her Sister to transport her home but she may need assistance.
[2024-05-20 10:00] VITALS: BMI 45.2
[2024-05-20 10:01] VITALS: BP 106/56; PULSE 68; RESP 16; TEMP 36.1; O2SAT 97
--- NOTE | 2024-05-20 10:14 | P.PNIM_ITS ---
Subjective Subjective Date of Service: 05/20/24 Interval History: luq abd pain radiating to back Physical Exam 2 Vital Signs: Vital Signs: Last Vital Signs Temp 97.0 F 05/20/24 10:01 Pulse 68 05/20/24 10:01 Resp 16 05/20/24 10:01 BP 106/56 L 05/20/24 10:01 Pulse Ox 97 05/20/24 10:01 O2 Del Method Room Air 05/20/24 10:01 BMI result Body Mass Index 45.2 General: AO X 3, no acute distress Resp: CTA bilateral, no accessory muscles used CVS: S1,S2,RRR GI: soft, non tender, non distended Neuro: motor grossly intact, alert Psych: appropriate affect, appropriate insight Objective Data Active Medications Calcium Carbonate (Calcium Carbonate 750 Mg Tab.Chew) 750 mg PO Q4H PRN PRN Reason: Heartburn Ceftriaxone Sodium (Ceftriaxone Sodium 1 Gm Vial) 1 gm IVPUSH Q24H [facility] Dextrose (Dextrose 50 % 25 Gm/50 Ml Syringe) 25 gm IVPUSH Q15M PRN; Protocol PRN Reason: per Hypoglycemia Standing Ord. Glucose (Glucose Gel 15 Gm Gel..Gram.) 15 gm PO Q15M PRN; Protocol PRN Reason: per Hypoglycemia Standing Ord. Hydromorphone HCl (Hydromorphone Hcl 1 Mg/Ml Syringe) 0.5 mg IVPUSH Q4H PRN; Protocol PRN Reason: Pain, Severe (Pain Scale 7-10) Last Admin: 05/20/24 08:26 Dose: 0.5 mg Documented By: ROBYN Lactated Ringer's (Lr) 1,000 mls @ 75 mls/hr IVCONT .[id number] [facility] Last Admin: 05/19/24 23:41 Dose: 75 mls/hr Documented By: BRANT Insulin Glargine (Insulin Glargine,Hum.Rec.Anlog 100 Unit/Ml 10 Ml Vial) 30 unit SUBCUT BEDTIME [facility] Insulin Human Lispro (Insulin Lispro 100 Unit/Ml 3 Ml Vial) 0 unit SUBCUT QIDACHS [facility]; Protocol Last Admin: 05/20/24 07:06 Dose: Not Given Documented By: ROBYN Non-Admin Reason: No Insulin Coverage Comments: poc 127 Magnesium Hydroxide (Milk Of Magnesia 30 Ml Oral.Susp) 30 ml PO DAILY PRN PRN Reason: Constipation Melatonin (Melatonin 3 Mg Tablet) 6 mg PO BEDTIME PRN PRN Reason: Insomnia Morphine Sulfate (Morphine Sulfate 4 Mg/Ml Cartridge) 2 mg IVPUSH Q4H PRN; Protocol PRN Reason: Pain, Moderate(Pain Scale 4-6) Nicotine Polacrilex (Nicotine Polacrilex 2 Mg Gum) 2 mg BUCCAL Q2H PRN PRN Reason: Nicotine Cravings Ondansetron HCl (Ondansetron Hcl 4 Mg/2 Ml Vial) 4 mg IVPUSH Q8H PRN PRN Reason: Nausea and Vomiting Polyethylene Glycol (Polyethylene Glycol 3350 17 Gm Powd.Pack) 17 gm PO DAILY PRN PRN Reason: Constipation Sodium Chloride (0.9 % Sodium Chloride Flush 3 Ml Syringe) 3 ml IVFLUSH QSHIFT [facility] Last Admin: 05/20/24 07:32 Dose: Not Given Documented By: ROBYN Non-Admin Reason: IV Running Labs 05/20/24 06:29 05/20/24 06:29 Labs: Laboratory Results - last 24 hr 05/19/24 05/19/24 05/19/24 16:34 16:35 19:41 MCV 89.5 MCH 30.7 MCHC 34.3 RDW 15.9 Plt Count 63 L MPV 11.7 Immature Gran % (Auto) 0.2 Neut % (Auto) 60.7 Lymph % (Auto) 32.6 [place] % (Auto) 5.1 Eos % (Auto) 0.9 Baso % (Auto) 0.5 Lymph # (Auto) 1.4 [place] # (Auto) 0.2 Eos # (Auto) 0.0 Baso # (Auto) 0.0 Abs Immat Gran (auto) 0.01 Absolute Neuts (auto) 2.6 Absolute Nucleated RBC 0.000 Nucleated RBC % (auto) 0.0 Smear Tech's Comments VERIFIED Anion Gap 11 L Estim Creat Clear Calc 91.5 Estimated GFR 59 POC Glucose Random Glucose 118 H Estimat Average Glucose 209 Hemoglobin A1c % 8.9 H Lactic Acid 3.4 H* Lactic Acid F/U @ 2Hr Lactic Acid F/U @ 4Hr Calcium 9.6 D Magnesium 2.1 Total Bilirubin 1.3 H Direct Bilirubin 0.4 AST 47 H ALT 24 Alkaline Phosphatase 261 H C-Reactive Protein 2.84 H Total Protein 8.1 H Albumin 3.4 L Lipase 193 H Beta-Hydroxybutyrate 0.15 Urine Color Yellow Urine Appearance Clear Urine pH 7.0 Ur Specific [place] >= 1.030 H Urine Protein 100 (2+) H Urine Glucose (UA) Negative Urine Ketones Negative Urine Blood Large (3+) H Urine Nitrite Positive H Ur Leukocyte Esterase Moderate (2+) H Urine RBC >20 H Urine WBC >50 H Ur Squamous Epith Cells 0-2 Urine Bacteria 1+ Hyaline Casts 0-2 Influenza Type A (PCR) NEGATIVE Influenza Type B (PCR) NEGATIVE RSV RNA Qual (PCR) NEGATIVE SARS-CoV-2 RNA (RT-PCR) NEGATIVE 05/19/24 05/19/24 05/19/24 19:47 23:03 23:26 MCV MCH MCHC RDW Plt Count MPV Immature Gran % (Auto) Neut % (Auto) Lymph % (Auto) [place] % (Auto) Eos % (Auto) Baso % (Auto) Lymph # (Auto) [place] # (Auto) Eos # (Auto) Baso # (Auto) Abs Immat Gran (auto) Absolute Neuts (auto) Absolute Nucleated RBC Nucleated RBC % (auto) Smear Tech's Comments Anion Gap Estim Creat Clear Calc Estimated GFR POC Glucose 135 H Random Glucose Estimat Average Glucose Hemoglobin A1c % Lactic Acid Lactic Acid F/U @ 2Hr 3.2 H* Lactic Acid F/U @ 4Hr 2.8 H* Calcium Magnesium Total Bilirubin Direct Bilirubin AST ALT Alkaline Phosphatase C-Reactive Protein Total Protein Albumin Lipase Beta-Hydroxybutyrate Urine Color Urine Appearance Urine pH Ur Specific [place] Urine Protein Urine Glucose (UA) Urine Ketones Urine Blood Urine Nitrite Ur Leukocyte Esterase Urine RBC Urine WBC Ur Squamous Epith Cells Urine Bacteria Hyaline Casts Influenza Type A (PCR) Influenza Type B (PCR) RSV RNA Qual (PCR) SARS-CoV-2 RNA (RT-PCR) 05/20/24 06:29 MCV 90.4 MCH 30.5 MCHC 33.7 RDW 15.9 Plt Count 54 L MPV 10.8 Immature Gran % (Auto) Neut % (Auto) Lymph % (Auto) [place] % (Auto) Eos % (Auto) Baso % (Auto) Lymph # (Auto) [place] # (Auto) Eos # (Auto) Baso # (Auto) Abs Immat Gran (auto) Absolute Neuts (auto) Absolute Nucleated RBC 0.000 Nucleated RBC % (auto) 0.0 Smear Tech's Comments Anion Gap 8 L Estim Creat Clear Calc 97.3 Estimated GFR > 60 POC Glucose Random Glucose 127 H Estimat Average Glucose Hemoglobin A1c % Lactic Acid Lactic Acid F/U @ 2Hr Lactic Acid F/U @ 4Hr Calcium 8.9 D Magnesium Total Bilirubin 1.2 H Direct Bilirubin AST 41 H ALT 15 Alkaline Phosphatase 225 H C-Reactive Protein Total Protein 6.7 Albumin 2.9 L Lipase Beta-Hydroxybutyrate Urine Color Urine Appearance Urine pH Ur Specific [place] Urine Protein Urine Glucose (UA) Urine Ketones Urine Blood Urine Nitrite Ur Leukocyte Esterase Urine RBC Urine WBC Ur Squamous Epith Cells Urine Bacteria Hyaline Casts Influenza Type A (PCR) Influenza Type B (PCR) RSV RNA Qual (PCR) SARS-CoV-2 RNA (RT-PCR) Assessment and Plan (1) PTSD (post-traumatic stress disorder): Status: Acute Plan 48F PMH GAYTAN cirrhosis, recurrent uti, morbid obesity, DM, PTSD, nephrolithiasis, mood disorder presented with LUQ abd pain. LUQ abdominal pain due to severe splenomegaly pain control GAYTAN cirrhosis with chronic thrombocytopenia GI eval UTI rocephin, cultures acute lactic acidosis due to metformin, cirhosis, not sepsis DM insulin morbid obesity weight loss dvt prophylaxis - mechanical due to thrombocytopenia full code reason for continued hospitalization:uncontrolled pain Quality Stroke Does the patient have a stroke diagnosis?: No VTE Prior VTE?: No VTE Risk Level:: Medical - moderate - high VTE Device Contraindication: N/A - Device Ordered VTE Drug Contraindication: Treatment Not Indicated
--- NOTE | 2024-05-20 10:31 | P.PNIM_ITS ---
Subjective Subjective Date of Service: 05/20/24 Interval History: LUQ pain Physical Exam 2 Vital Signs: Vital Signs: Last Vital Signs Temp 97.0 F 05/20/24 10:01 Pulse 68 05/20/24 10:01 Resp 16 05/20/24 10:01 BP 106/56 L 05/20/24 10:01 Pulse Ox 97 05/20/24 10:01 O2 Del Method Room Air 05/20/24 10:01 BMI result Body Mass Index 45.2 General: AO X 3, no acute distress Resp: CTA bilateral, no accessory muscles used CVS: S1,S2,RRR GI: soft, LUQ tender, non distended Neuro: motor grossly intact, alert Psych: appropriate affect, appropriate insight Objective Data Active Medications Buspirone HCl (Buspirone Hcl 10 Mg Tablet) 10 mg PO TID MARYJO Calcium Carbonate (Calcium Carbonate 750 Mg Tab.Chew) 750 mg PO Q4H PRN PRN Reason: Heartburn Ceftriaxone Sodium (Ceftriaxone Sodium 1 Gm Vial) 1 gm IVPUSH Q24H [facility] Cyclobenzaprine HCl (Cyclobenzaprine Hcl 5 Mg Tablet) 5 mg PO TID [facility] Dextrose (Dextrose 50 % 25 Gm/50 Ml Syringe) 25 gm IVPUSH Q15M PRN; Protocol PRN Reason: per Hypoglycemia Standing Ord. Duloxetine HCl (Duloxetine Hcl 60 Mg Capsule.Dr) 60 mg PO DAILY [facility] Fluticasone/Vilanterol (Fluticasone/Vilanterol 100/25 Blst.W.Dev) 1 puff INHALE RDAILY [facility] Glucose (Glucose Gel 15 Gm Gel..Gram.) 15 gm PO Q15M PRN; Protocol PRN Reason: per Hypoglycemia Standing Ord. Hydromorphone HCl (Hydromorphone Hcl 1 Mg/Ml Syringe) 0.5 mg IVPUSH Q2H PRN; Protocol PRN Reason: Pain, Severe (Pain Scale 7-10) Lactated Ringer's (Lr) 1,000 mls @ 75 mls/hr IVCONT .[id number] [facility] Last Admin: 05/19/24 23:41 Dose: 75 mls/hr Documented By: BRANT Insulin Glargine (Insulin Glargine,Hum.Rec.Anlog 100 Unit/Ml 10 Ml Vial) 30 unit SUBCUT BEDTIME [facility] Insulin Human Lispro (Insulin Lispro 100 Unit/Ml 3 Ml Vial) 0 unit SUBCUT QIDACHS [facility]; Protocol Last Admin: 05/20/24 07:06 Dose: Not Given Documented By: ROBYN Non-Admin Reason: No Insulin Coverage Comments: poc 127 Magnesium Hydroxide (Milk Of Magnesia 30 Ml Oral.Susp) 30 ml PO DAILY PRN PRN Reason: Constipation Melatonin (Melatonin 3 Mg Tablet) 6 mg PO BEDTIME PRN PRN Reason: Insomnia Morphine Sulfate (Morphine Sulfate 4 Mg/Ml Cartridge) 2 mg IVPUSH Q4H PRN; Protocol PRN Reason: Pain, Moderate(Pain Scale 4-6) Nicotine Polacrilex (Nicotine Polacrilex 2 Mg Gum) 2 mg BUCCAL Q2H PRN PRN Reason: Nicotine Cravings Omeprazole (Omeprazole 20 Mg Capsule.Dr) 20 mg PO DAILY@0630 [facility] Ondansetron HCl (Ondansetron Hcl 4 Mg/2 Ml Vial) 4 mg IVPUSH Q8H PRN PRN Reason: Nausea and Vomiting Polyethylene Glycol (Polyethylene Glycol 3350 17 Gm Powd.Pack) 17 gm PO DAILY PRN PRN Reason: Constipation Pregabalin (Pregabalin 150 Mg Capsule) 300 mg PO BID [facility] Sodium Chloride (0.9 % Sodium Chloride Flush 3 Ml Syringe) 3 ml IVFLUSH QSHIFT [facility] Last Admin: 05/20/24 07:32 Dose: Not Given Documented By: ROBYN Non-Admin Reason: IV Running Labs 05/20/24 06:29 05/20/24 06:29 Labs: Laboratory Results - last 24 hr 05/19/24 05/19/24 05/19/24 16:34 16:35 19:41 MCV 89.5 MCH 30.7 MCHC 34.3 RDW 15.9 Plt Count 63 L MPV 11.7 Immature Gran % (Auto) 0.2 Neut % (Auto) 60.7 Lymph % (Auto) 32.6 Granite % (Auto) 5.1 Eos % (Auto) 0.9 Baso % (Auto) 0.5 Lymph # (Auto) 1.4 Granite # (Auto) 0.2 Eos # (Auto) 0.0 Baso # (Auto) 0.0 Abs Immat Gran (auto) 0.01 Absolute Neuts (auto) 2.6 Absolute Nucleated RBC 0.000 Nucleated RBC % (auto) 0.0 Smear Tech's Comments VERIFIED Anion Gap 11 L Estim Creat Clear Calc 91.5 Estimated GFR 59 POC Glucose Random Glucose 118 H Estimat Average Glucose 209 Hemoglobin A1c % 8.9 H Lactic Acid 3.4 H* Lactic Acid F/U @ 2Hr Lactic Acid F/U @ 4Hr Calcium 9.6 D Magnesium 2.1 Total Bilirubin 1.3 H Direct Bilirubin 0.4 AST 47 H ALT 24 Alkaline Phosphatase 261 H C-Reactive Protein 2.84 H Total Protein 8.1 H Albumin 3.4 L Lipase 193 H Beta-Hydroxybutyrate 0.15 Urine Color Yellow Urine Appearance Clear Urine pH 7.0 Ur Specific Pierson >= 1.030 H Urine Protein 100 (2+) H Urine Glucose (UA) Negative Urine Ketones Negative Urine Blood Large (3+) H Urine Nitrite Positive H Ur Leukocyte Esterase Moderate (2+) H Urine RBC >20 H Urine WBC >50 H Ur Squamous Epith Cells 0-2 Urine Bacteria 1+ Hyaline Casts 0-2 Influenza Type A (PCR) NEGATIVE Influenza Type B (PCR) NEGATIVE RSV RNA Qual (PCR) NEGATIVE SARS-CoV-2 RNA (RT-PCR) NEGATIVE 05/19/24 05/19/24 05/19/24 19:47 23:03 23:26 MCV MCH MCHC RDW Plt Count MPV Immature Gran % (Auto) Neut % (Auto) Lymph % (Auto) Granite % (Auto) Eos % (Auto) Baso % (Auto) Lymph # (Auto) Granite # (Auto) Eos # (Auto) Baso # (Auto) Abs Immat Gran (auto) Absolute Neuts (auto) Absolute Nucleated RBC Nucleated RBC % (auto) Smear Tech's Comments Anion Gap Estim Creat Clear Calc Estimated GFR POC Glucose 135 H Random Glucose Estimat Average Glucose Hemoglobin A1c % Lactic Acid Lactic Acid F/U @ 2Hr 3.2 H* Lactic Acid F/U @ 4Hr 2.8 H* Calcium Magnesium Total Bilirubin Direct Bilirubin AST ALT Alkaline Phosphatase C-Reactive Protein Total Protein Albumin Lipase Beta-Hydroxybutyrate Urine Color Urine Appearance Urine pH Ur Specific Pierson Urine Protein Urine Glucose (UA) Urine Ketones Urine Blood Urine Nitrite Ur Leukocyte Esterase Urine RBC Urine WBC Ur Squamous Epith Cells Urine Bacteria Hyaline Casts Influenza Type A (PCR) Influenza Type B (PCR) RSV RNA Qual (PCR) SARS-CoV-2 RNA (RT-PCR) 05/20/24 06:29 MCV 90.4 MCH 30.5 MCHC 33.7 RDW 15.9 Plt Count 54 L MPV 10.8 Immature Gran % (Auto) Neut % (Auto) Lymph % (Auto) Granite % (Auto) Eos % (Auto) Baso % (Auto) Lymph # (Auto) Granite # (Auto) Eos # (Auto) Baso # (Auto) Abs Immat Gran (auto) Absolute Neuts (auto) Absolute Nucleated RBC 0.000 Nucleated RBC % (auto) 0.0 Smear Tech's Comments Anion Gap 8 L Estim Creat Clear Calc 97.3 Estimated GFR > 60 POC Glucose Random Glucose 127 H Estimat Average Glucose Hemoglobin A1c % Lactic Acid Lactic Acid F/U @ 2Hr Lactic Acid F/U @ 4Hr Calcium 8.9 D Magnesium Total Bilirubin 1.2 H Direct Bilirubin AST 41 H ALT 15 Alkaline Phosphatase 225 H C-Reactive Protein Total Protein 6.7 Albumin 2.9 L Lipase Beta-Hydroxybutyrate Urine Color Urine Appearance Urine pH Ur Specific Pierson Urine Protein Urine Glucose (UA) Urine Ketones Urine Blood Urine Nitrite Ur Leukocyte Esterase Urine RBC Urine WBC Ur Squamous Epith Cells Urine Bacteria Hyaline Casts Influenza Type A (PCR) Influenza Type B (PCR) RSV RNA Qual (PCR) SARS-CoV-2 RNA (RT-PCR) Assessment and Plan (1) Abdominal pain: Status: Acute Quality Stroke Does the patient have a stroke diagnosis?: No VTE Prior VTE?: No VTE Risk Level:: Medical - moderate - high VTE Device Contraindication: N/A - Device Ordered VTE Drug Contraindication: Treatment Not Indicated
[2024-05-20 11:05] LABS: Glucose, Whole Blood 163 mg/dL (60-115)
[2024-05-20] MEDS: HYDROmorphone HCl 0.5 MG/0.5 ML SYRINGE IVPUSH ×2 (11:05→16:41)
[2024-05-20] MEDS: Insulin Lispro 100 UNIT/ML 3 ML VIAL SUBCUT ×2 (11:31→21:14)
--- NOTE | 2024-05-20 11:33 | P.CDIM_ITS ---
PROVIDER RESPONSE TEXT: To clarify, the appropriate diagnosis supported by the clinical indicators: Pancytopenia QUERY TEXT: PHYSICIAN'S DOCUMENTATION REQUEST Date of Query: 05/20/2024 11:23 AM EDT Patient Name: Billie Martínez Admit Date: 05/20/2024 Dear Lopez Longoria MD, A review of the medical record indicates additional documentation may be needed. Please review below and update the documentation accordingly. Clinical Indicators: LABS: wbc 3.6 rbc 3.87 plt 54 L Based on the above, is there a diagnosis that correlates with the above findings for this patient? Pancytopenia Other specified (specify type) Other (explain) Clinically unable to determine (explain) Thank you, Macarena Alvarez, CCS, CDIS Use of terms such as suspected, likely, concern for, or probable (associated with a specific diagnosi s that is being evaluated, monitored, or treated as if it exists) are acceptable and can be coded in the inpatient se tting, when documented at the time of discharge. Please use your independent medical judgment in providing your response. THIS QUERY IS PART OF THE PERMANENT MEDICAL RECORD
[2024-05-20] MEDS: Lactated Ringers 1,000 ML 75 ML IVCONT ×2 (11:34→17:09)
[2024-05-20 15:10] VITALS: BP 120/76; PULSE 60; RESP 20; TEMP 36.6; O2SAT 98
[2024-05-20] MEDS: Fluticasone/Vilanterol 100/25 BLST.W.DEV 1 PUFF INHALE (15:38)
[2024-05-20 15:40] VITALS: PULSE 71; RESP 16; O2SAT 93
--- NOTE | 2024-05-20 16:09 | PM.EVENT ---
Event Note Date of Service: 05/20/24 Event Note: hypotension due to medication not sepsis Time Spent With Patient Time: Total time managing care of this patient today ____ minutes.
[2024-05-20] MEDS: 0.9 % Sodium Chloride 500 ML 999 ML IV (16:20)
[2024-05-20] MEDS: Cyclobenzaprine HCl 5 MG TABLET PO ×2 (16:40→21:15)
[2024-05-20] MEDS: busPIRone HCl 10 MG TABLET PO ×2 (16:41→21:15)
[2024-05-20 16:43] LABS: Glucose, Whole Blood 130 mg/dL (60-115)
[2024-05-20] MEDS: cefTRIAXone sodium 1 GM VIAL IVPUSH (16:43)
[2024-05-20 17:05] VITALS: BP 124/78
[2024-05-20 19:26] VITALS: BP 101/54; PULSE 67; RESP 20; TEMP 36.6; O2SAT 94
[2024-05-20 21:12] LABS: Glucose, Whole Blood 151 mg/dL (60-115)
[2024-05-20] MEDS: Pregabalin 150 MG CAPSULE 300 MG PO (21:15)
[2024-05-21] MEDS: HYDROmorphone HCl 0.5 MG/0.5 ML SYRINGE IVPUSH ×2 (00:42→05:25)
[2024-05-21 03:19] VITALS: BP 110/51; PULSE 74; RESP 16; TEMP 36.4; O2SAT 93
[2024-05-21] MEDS: Omeprazole 20 MG CAPSULE.DR PO (05:25)
[2024-05-21 05:45] LABS: PLT CLUMP 1
[2024-05-21 05:47] LABS: Hematocrit 36.3 % (37.0-47.0); Hemoglobin 11.9 g/dl (12.0-16.0); Mean Corpuscular HGB Conc 32.8 g/dl (31.0-35.0); Mean Corpuscular Hemoglobin 30.1 pg (27.0-33.0); Mean Corpuscular Volume 91.9 fL (80.0-98.0); Mean Platelet Volume 11.1 fL (9.4-12.3); Red Blood Count 3.95 X10*6/uL (4.20-5.50); Red Cell Distribution Width 15.8 % (11.0-16.0); White Blood Count 3.2 X10*3/uL (4.8-10.8)
[2024-05-21 05:48] LABS: Platelet Count 56 X10*3/uL (160-400)
[2024-05-21 06:10] LABS: Alanine Aminotransferase 18 U/L (0-31); Albumin Level 2.8 g/dL (3.5-5.0); Alkaline Phosphatase 214 U/L (39-117); Anion Gap 11 (12-20); Aspartate Amino Transferase 41 U/L (5-31); Bilirubin Total 0.9 mg/dL (0.0-1.0); Blood Urea Nitrogen 9 mg/dL (9-16); Calcium 8.7 mg/dL (8.4-10.2); Carbon Dioxide 27 mmol/L (22-29); Chloride 111 mmol/L (96-108); Creatinine Clr Calc Pharmacy 92.7; Estimated Glomerular Filt Rate 59; Glucose Random 134 mg/dL (60-115); Potassium 3.6 mmol/L (3.3-5.1); Sodium 145 mmol/L (135-145); Total Protein 6.8 g/dL (6.5-8.0)
[2024-05-21] MEDS: busPIRone HCl 10 MG TABLET PO (07:23)
[2024-05-21] MEDS: Pregabalin 150 MG CAPSULE 300 MG PO (07:23)
[2024-05-21] MEDS: Cyclobenzaprine HCl 5 MG TABLET PO (07:24)
[2024-05-21] MEDS: DULoxetine HCl 60 MG CAPSULE.DR PO (07:24)
[2024-05-21 07:27] LABS: Glucose, Whole Blood 134 mg/dL (60-115)
[2024-05-21 07:45] VITALS: BP 100/60; PULSE 70; RESP 18; TEMP 36; O2SAT 94
--- NOTE | 2024-05-21 09:03 | PM.DS ---
DS: Providers Provider Date of Service: 05/21/24 Date of admission: 05/19/24 22:52 Date of discharge: 05/21/24 Primary care physician: [facility] Consults: 05/19/24 22:52 Consult to Gastroenterology Routine Consulting Provider: Jabari Dumont Reason for consultation: newer dx cirrhosis, abd pain, ?colitis Has provider been notified: No DS: Diagnosis Discharge Diagnosis (1) Thrombocytopenia: Status: Acute (2) Abdominal pain: Status: Acute (3) Cirrhosis: Status: Acute DS: Summary Hospital Course Hospital Course: from initial hpi: 48 yo f with a pmhx significant for new diagnosis cirrhosis, recurrent UTIs, kidney stones, PTSD, obesity, T2DM, HLD, HTN, GERD, hx bacteremia secondary to infected L ureteral stone, and mood disorder, who presented to the ED due to diffuse abdominal pain and flank pain as well as subjective fever, urinary retention, bladder pressure and malodorous urine for the past 5 days. She describes 10/10 diffuse abdominal pain reports that it is sharp with some associated nausea and vomiting. No hematemesis or hematochezia. She was diagnosed with the [facility] 2 days ago but left AMA before receiving antibiotics or being seen. She went to the clinic today and was sent to the ED to rule out pyelonephritis. She reports she was recently diagnosed with cirrhosis but has yet to see a [facility] host outpt. She has also had a significant weight loss over the past few months, she reports she went from 347 lb to 272. She also reports decreased appetite, only eating 1 meal per day. She has no history of alcohol use except for occasional weekends with friends and her 20s. She also reports diarrhea recently, but none over the past few days. The patient is a very poor historian. hospital course: Quadrant abdominal pain due to severe splenomegaly in the setting of Padron cirrhosis with chronic pancytopenia. Pain was controlled with opiates. Should follow up outpatient with GI and consider surgical eval if unable to manage symptoms of splenomegaly. For urinary tract infection, urine culture grew mixed sherley was treated with ceftriaxone and will be discharged on 3 more days of Ceftin. Acute lactic acidosis was due to metformin and cirrhosis not sepsis. For diabetes was continued on insulin. For morbid obesity weight loss recommended. Time Attestation Discharge Coordination Time (in mins): 34 Quality: Safe Use of Opioids Does Pt have an Active Cancer Diagnosis on the Problem List?: No Quality: Stroke Does the patient have a stroke diagnosis?: No Physical Exam Vital Signs: Vital Signs: Last Vital Signs Temp 96.8 F 05/21/24 07:45 Pulse 70 05/21/24 07:45 Resp 18 05/21/24 07:45 BP 100/60 05/21/24 07:45 Pulse Ox 94 05/21/24 07:45 O2 Del Method Room Air 05/21/24 07:45 BMI result Body Mass Index 45.2 General: AO X 3, no acute distress Resp: CTA bilateral, no accessory muscles used CVS: S1,S2,RRR GI: soft, non tender, non distended Neuro: motor grossly intact, alert Psych: appropriate affect, appropriate insight DS: Data Data Completed and Pending Completed studies during hospitalization [Text1]: Procedures Dilation of Left Ureter with Intraluminal Device, Via Natural or Artificial Opening Endoscopic (03/12/21) Fluoroscopy of Left Kidney, Ureter and Bladder (03/12/21) Labs on day of discharge: Laboratory Results - last 24 hr 05/20/24 05/20/24 05/20/24 10:57 16:36 20:53 WBC RBC Hgb Hct MCV MCH MCHC RDW Plt Count MPV Absolute Nucleated RBC Nucleated RBC % (auto) Sodium Potassium Chloride Carbon Dioxide Anion Gap BUN Creatinine Estim Creat Clear Calc Estimated GFR POC Glucose 163 H 130 H 151 H Random Glucose Calcium Total Bilirubin AST ALT Alkaline Phosphatase Total Protein Albumin 05/21/24 05/21/24 05:20 07:23 WBC 3.2 L RBC 3.95 L Hgb 11.9 L Hct 36.3 L MCV 91.9 MCH 30.1 MCHC 32.8 RDW 15.8 Plt Count 56 L MPV 11.1 Absolute Nucleated RBC 0.000 Nucleated RBC % (auto) 0.0 Sodium 145 Potassium 3.6 Chloride 111 H Carbon Dioxide 27 Anion Gap 11 L BUN 9 Creatinine 1.00 Estim Creat Clear Calc 92.7 Estimated GFR 59 POC Glucose 134 H Random Glucose 134 H Calcium 8.7 Total Bilirubin 0.9 AST 41 H ALT 18 Alkaline Phosphatase 214 H Total Protein 6.8 Albumin 2.8 L Preliminary micro results at discharge 05/19/24 16:58 Blood Culture - Preliminary Blood - Venous No growth after 24 hours. 05/19/24 16:35 Blood Culture - Preliminary Blood - Venous No growth after 24 hours. 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 cefuroxime axetil 250 mg tablet 250 mg PO Q12H Qty: 6 0RF Continued cyclobenzaprine 10 mg tablet 5 mg PO TID pantoprazole 40 mg tablet,delayed release (DR/EC) 40 mg PO DAILY buspirone 10 mg tablet 10 mg PO TID albuterol sulfate [ProAir HFA] 90 mcg/actuation HFA aerosol inhaler 2 puff PO Q4H PRN (Reason: Wheezing) metformin 500 mg tablet extended release 24 hr 1,000 mg PO BID duloxetine 60 mg capsule,delayed release(DR/EC) 60 mg PO DAILY insulin degludec [Tresiba FlexTouch U-200] 200 unit/mL (3 mL) insulin pen 44 unit subcut DAILY budesonide-formoterol [Symbicort] 80-4.5 mcg/actuation HFA aerosol inhaler 2 puff INHALATION BID pregabalin capsule 300 mg PO BID spironolactone 25 mg tablet 25 mg PO DAILY ferrous sulfate 325 mg (65 mg iron) Tablet 325 mg PO DAILY dulaglutide 4.5 mg/0.5 mL Pen Injector 4.5 mg SUBCUT TU potassium chloride 20 mEq tablet,ER particles/crystals 20 meq PO BID Discontinued lisinopril 2.5 mg tablet 2.5 mg PO DAILY propranolol 10 mg tablet 10 mg PO DAILY Discharge Orders: Discharge Order (Routine); Ordered 05/21/24 Ordered By: Lopez Longoria Diet: Advance to usual diet Activity on Discharge: As tolerated Stand Alone Forms: Patient Portal Discharge page Print Language: Icelandic Care Plan Goals: manage pain, uti Health Concerns: cirrhosis with splenomegaly Plan of Treatment: follow up with gi, consider surgery follow up for possible splenectomy if symptoms ongoing 3 days ceftin Assessment: see above
--- NOTE | 2024-05-21 09:04 | MHC.CM.PN ---
PT DCD HOME SELF CARE
[2024-05-21] MEDS: oxyCODONE HCl Immed Release 5 MG TABLET PO ×2 (09:09→13:17)
[2024-05-21] MEDS: LORazepam 0.5 MG TABLET PO (09:09)
[2024-05-21 11:26] LABS: Glucose, Whole Blood 174 mg/dL (60-115)
[2024-05-21] MEDS: Insulin Lispro 100 UNIT/ML 3 ML VIAL SUBCUT (12:02)
== END 2024-05-21 14:04 | disposition home or self-care (01) | DRG 463 ==
LOC: HO.ED 05-20 00:16 → HO.EDOVER 05-20 00:17 → HO.S3 05-20 08:06
PROVIDERS: Emergency Medicine; Physician Assistant Medical; Admitting Provider Physician Assistant; Emergency Provider Emergency Medicine; PCP Registered Nurse; Visit Provider Internal Medicine
DX: N39.0 Urinary tract infection, site not specified (principal); D61.818 Other pancytopenia; E87.21 Acute metabolic acidosis; K76.6 Portal hypertension; D73.2 Chronic congestive splenomegaly; E66.813 Obesity, class 3; F17.210 Nicotine dependence, cigarettes, uncomplicated; E11.9 Type 2 diabetes mellitus without complications; F43.10 Post-traumatic stress disorder, unspecified; I10 Essential (primary) hypertension; K75.81 Nonalcoholic steatohepatitis (NASH); K74.69 Other cirrhosis of liver; I95.2 Hypotension due to drugs; Z71.3 Dietary counseling and surveillance; Z68.42 Body mass index [BMI] 45.0-49.9, adult; Z20.822 Contact with and (suspected) exposure to COVID-19; Z71.6 Tobacco abuse counseling; Z87.440 Personal history of urinary (tract) infections; Z79.4 Long term (current) use of insulin; Z79.85 Long-term (current) use of injectable non-insulin antidiabetic drugs; Z79.84 Long term (current) use of oral hypoglycemic drugs; Z79.899 Other long term (current) drug therapy
CPT/HCPCS: 0241U; 36415; 74177; 80053; 81001; 82010; 82248; 82947; 83036; 83605; 83690; 83735; 84484; 85025; 85027; 86140; 87040; 87086; 93005; 94640; 99285; J0696; J1171; J2060; J2270; J2405; J7120; Q9967

== ENCOUNTER → 2024-05-19 16:23 | Outpatient (BNV) | payer MEDICAID, SELFPAY | PROVIDERS: Admitting Provider Physician Assistant; Emergency Provider Emergency Medicine; Visit Provider Internal Medicine Cardiovascular Disease | DX: R10.9 Unspecified abdominal pain (principal) | CPT/HCPCS: 93010 ==

== ENCOUNTER → 2024-05-19 16:23 | Outpatient (BNV) | payer MEDICAID, SELFPAY | PROVIDERS: Emergency Provider Emergency Medicine; Visit Provider Radiology Diagnostic Radiology | DX: R10.9 Unspecified abdominal pain (principal) | CPT/HCPCS: 74177 ==

== ENCOUNTER → 2024-05-19 22:52 | Outpatient (BNV) | payer MEDICAID, SELFPAY | PROVIDERS: Admitting Provider Physician Assistant; Emergency Provider Emergency Medicine; Visit Provider Internal Medicine | DX: D69.6 Thrombocytopenia, unspecified (principal); R10.9 Unspecified abdominal pain; K74.60 Unspecified cirrhosis of liver | CPT/HCPCS: 99223; 99233; 99239; 99499 ==

== ENCOUNTER → 2024-05-19 22:52 | Outpatient (BNV) | payer MEDICAID, SELFPAY | PROVIDERS: Admitting Provider Physician Assistant; Emergency Provider Emergency Medicine; PCP Registered Nurse; Visit Provider Internal Medicine Gastroenterology | DX: D69.6 Thrombocytopenia, unspecified (principal); R10.9 Unspecified abdominal pain; K74.60 Unspecified cirrhosis of liver | CPT/HCPCS: 99222 ==

== ENCOUNTER 2024-05-27 18:49 | Emergency (ER) | payer MEDICAID, SELFPAY ==
--- NOTE | ~2024-05-27 | CT_ITS ---
CLINICAL HISTORY: LLQ pain CT abdomen and pelvis with contrast Comparison: CT - CT ABDOMEN PELVIS W IV CON - 05/27/24 21:[address]/SR - CT ABDOMEN PELVIS W IV CON - 05/19/24 17:47 EDT Findings: The lung bases are clear. Liver has a nodular contour, cirrhosis. Gallbladder is surgically absent. Pancreas is unremarkable. Spleen is enlarged. Adrenal glands grossly within normal limits. The kidneys enhance symmetrically and are non hydronephrotic. Areas of renal cortical thinning likely represent prior renal scarring. No bowel obstruction, pneumoperitoneum, or pneumatosis. Retroperitoneal lymph nodes are slightly prominent not meeting CT size criteria for pathologic enlargement. Pelvic contents unremarkable. Normal appendix. No acute fracture. Atherosclerotic vascular calcifications are present. IMPRESSION: Cirrhosis with sequela of portal venous hypertension. This document has been electronically signed by: Federico Bee MD, PHD on 05/27/2024 23:35:49
[2024-05-27 19:11] VITALS: BP 110/49; PULSE 89; RESP 18; TEMP 36.5; O2SAT 97; BMI 43.6
--- NOTE | 2024-05-27 19:16 | ED_ITS ---
HPI - General Adult General Chief complaint: Abdominal Pain Stated complaint: abd pain Time Seen by Provider: 05/27/24 20:58 Source: patient Limitations: no limitations History of Present Illness ED Provider: Sarah Grimes PA-C HPI narrative: 48-year-old female with a history of morbid obesity, cirrhosis, kidney stones, PTSD, chronic abdominal pain, diabetes, who presents with abdominal pain. Pain primarily over left abdomen with radiation to the bladder. Patient states ?the pain grabs my bladder?. Patient was admitted to the hospital last week found to have colitis. Patient states she is having ongoing symptoms consisting of nausea vomiting diarrhea coming having 2-3 episodes of diarrhea a day. Denies dysuria, hematuria. Patient states she is having subjective fevers at home. Related Data Home Medications ?Medication ?Instructions ?Recorded ?Confirmed albuterol sulfate 90 mcg/actuation 2 puff PO Q4H PRN Wheezing 03/12/21 05/20/24 aerosol inhaler (ProAir HFA) buspirone 10 mg tablet 10 mg PO TID anxiety 03/12/21 05/20/24 cyclobenzaprine 10 mg tablet 5 mg PO TID 03/12/21 05/20/24 duloxetine 60 mg capsule,delayed 60 mg PO DAILY 03/12/21 05/20/24 release insulin degludec 200 unit/mL (3 44 unit subcut DAILY 03/12/21 05/20/24 mL) subcutaneous pen (Tresiba FlexTouch U-200 insulin) metformin 500 mg tablet,extended 1,000 mg PO BID 03/12/21 05/20/24 release 24 hr pantoprazole 40 mg tablet,delayed 40 mg PO DAILY 03/12/21 05/20/24 release budesonide-formoterol HFA 80 2 puff inhalation BID dyspnea 09/19/23 05/20/24 mcg-4.5 mcg/actuation aerosol inhaler (Symbicort) pregabalin 300 mg PO BID 09/19/23 05/20/24 dulaglutide 4.5 mg/0.5 mL 4.5 mg subcut TU 05/20/24 05/20/24 subcutaneous pen injector ferrous sulfate 325 mg (65 mg 325 mg PO DAILY 05/20/24 05/20/24 iron) tablet potassium chloride 20 mEq 20 meq PO BID 05/20/24 05/20/24 tablet,extended release(part/cryst) spironolactone 25 mg tablet 25 mg PO DAILY 05/20/24 05/20/24 Previous Rx's ?Medication ?Instructions ?Recorded cefuroxime axetil 250 mg tablet 250 mg PO Q12H #6 tabs 05/21/24 oxycodone 5 mg tablet 5 mg PO Q4H PRN Pain, Severe (Pain 05/21/24 Scale 7-10) #15 tabs dicyclomine 10 mg capsule 10 mg PO QID PRN abdominal pain 05/28/24 #12 caps Allergies Allergy/AdvReac Type Severity Reaction Status Date / Time acetaminophen [From TYLENOL] Allergy Unknown LIVER Verified 05/27/24 19:15 SWELLING Review of Systems 2 Review of Systems: Yes all other systems are reviewed and are negative Constitutional: Constitutional: Denies fatigue and Denies fever(s) Cardiovascular: Cardiovascular: Denies chest pain and Denies dyspnea Respiratory: Respiratory: Denies chest congestion, Denies cough and Denies dyspnea Gastrointestinal: Gastrointestinal: Reports abdominal pain, Denies constipation, Reports diarrhea, Reports nausea and Reports vomiting Genitourinary: Genitourinary: Denies hematuria and Denies dysuria Endocrine: Endocrine: Denies fatigue PMFSH Past Medical History Attestation statement: The following information was validated with the patient. Medical History Chronic abdominal pain PTSD (post-traumatic stress disorder) Cirrhosis Cholecystectomy planned delivery delivered Migraine Asthma Diabetes Spleen enlarged Enlarged liver Hernia Surgical History Status post anal fissurectomy Family History Family History Mother Diabetes Anxiety Depressed Arthritis Migraine Social History Social History Household Members: Children Household Members Other:: she has 6 children and 12 grandchildren- [address] Housing: Apartment Do you presently have visiting nurse or other home services: No Alcohol intake: former Comment: back Patient Tobacco Use Status: Current everyday Tobacco user Tobacco use type: Cigarette Cigarette Packs Per Day: 0.5 Cigarettes Per Day: 4 Years Smoked: 30 e-Cigarette/Vaping Use: Never Used Second Hand Smoke Exposure: No Substance Use Type: Marijuana Advance Directives: No Advance Directives Information Provided: No Do you have a plan to hurt others: No Plan service: No Current occupational status: unemployed Physical Exam ED Vital Signs: Vital Signs - 24 hr 05/27/24 19:11 05/27/24 22:19 05/27/24 23:17 Temperature 97.7 F 98.4 F Pulse Rate 89 79 Respiratory Rate 18 16 16 Blood Pressure 110/49 L 122/54 L Pulse Oximetry 97 Oxygen Delivery Method Room Air 05/27/24 23:21 05/27/24 23:31 05/28/24 00:09 Temperature 98.4 F 98.3 F Pulse Rate 79 82 Respiratory Rate 16 16 16 Blood Pressure 122/54 L 113/57 L Pulse Oximetry 98 Oxygen Delivery Method Room Air BMI result Body Mass Index 43.6 Const Other: Alert, appears older than stated age Orientation/consciousness: patient oriented x3 Resp Effort & Inspection: normal respiratory effort Cardio Other: Normal peripheral perfusion GI Other: Abdomen is soft, obese, nondistended, patient was guarding against exam prior to being palpated, with distraction, there is no objective pain or guarding Skin Other: Warm dry no rash Neuro General: patient oriented x3, gait normal, no focal motor deficits and CN's II- XI intact bilaterally Psych Other: Cooperative Course Course Course Narrative: This is a rapid medical exam performed by Nima Mullins NP: Additional HPI, ROS, PE not included below will be deferred to primary provider. Patient is a 48-year-old female presenting to the emergency department with complaint of left upper quadrant pain for the past few weeks radiating to suprapubic area. Reports nausea, 1 episode of vomiting and diarrhea. Subjective fevers. Denies did urinary symptoms. Plan: labs, UA Medications Administered Discontinued Medications Generic Name Dose Route Start Last Admin Trade Name Freq PRN Reason Stop Dose Admin Dicyclomine HCl 20 mg 05/28/24 00:18 05/28/24 00:27 Dicyclomine Hcl 10 Mg Capsule PO 05/28/24 00:19 20 mg ONCE ONE Administration Iohexol 85 ml 05/27/24 22:32 05/27/24 22:33 Iohexol 350 Mg/Ml 100 Ml Infus..Btl IV 05/27/24 22:33 85 ml ONCE ONE Administration Morphine Sulfate 4 mg 05/27/24 21:30 05/27/24 22:19 Morphine Sulfate 4 Mg/Ml Cartridge IVPUSH 05/27/24 21:31 4 mg ONCE ONE Administration Protocol Morphine Sulfate 4 mg 05/27/24 23:23 05/27/24 23:31 Morphine Sulfate 4 Mg/Ml Cartridge IVPUSH 05/27/24 23:24 4 mg ONCE ONE Administration Protocol Ondansetron HCl 4 mg 05/27/24 21:30 05/27/24 22:18 Ondansetron Hcl 4 Mg/2 Ml Vial IVPUSH 05/27/24 21:31 4 mg ONCE ONE Administration Medical Decision Making Medical Decision Making MDM Narrative: 48-year-old female with a history of morbid obesity, cirrhosis, kidney stones, PTSD, chronic abdominal pain, diabetes, who presents with abdominal pain. Pain primarily over left abdomen with radiation to the bladder. Patient states ?the pain grabs my bladder?. Patient was admitted to the hospital last week found to have colitis. Patient states she is having ongoing symptoms consisting of nausea vomiting diarrhea coming having 2-3 episodes of diarrhea a day. Denies dysuria, hematuria. Patient states she is having subjective fevers at home. Problem: Chronic pain, cirrhosis, morbid obesity, diabetes History: Per patient I have considered the following differential diagnoses: Renal colic, diverticulitis, C diff condyle pancreatitis, Plan: Patient's exam was nonfocal, with distraction, it was completely unremarkable. Screening labs including a urinalysis are completed, no abnormalities. Given recent admission with a colitis, with her reported refractory symptoms, I will obtain repeat imaging. Doubtful to be C diff, she is only having 2-3 episodes of diarrhea per her report, objectively, the patient was not having active GI symptoms here in the emergency room, she has been here for several hours. I have independently reviewed the following tests: Labs: No leukocytosis, not anemic, no electrolyte abnormality noted, urine not infected CT abdomen and pelvis:IMPRESSION: Cirrhosis with sequela of portal venous hypertension. Lab Data 05/27/24 19:23 05/27/24 19:23 Labs: Lab Results 05/27/24 05/27/24 Range/Units 19:23 21:15 WBC 2.8 L (4.8-10.8) X10*3/uL RBC 3.98 L (4.20-5.50) X10*6/uL Hgb 12.3 (12.0-16.0) g/dl Hct 36.4 L (37.0-47.0) % MCV 91.5 (80.0-98.0) fL MCH 30.9 (27.0-33.0) pg MCHC 33.8 (31.0-35.0) g/dl RDW 15.9 (11.0-16.0) % Plt Count 63 L (160-400) X10*3/uL MPV 10.5 (9.4-12.3) fL Immature Gran % (Auto) 0.0 (0.0-0.4) % Neut % (Auto) 59.2 (45-73) % Lymph % (Auto) 35.7 (20-40) % [place] % (Auto) 4.3 (2-11) % Eos % (Auto) 0.4 (0-4) % Baso % (Auto) 0.4 (0-2) % Lymph # (Auto) 1.0 L (1.2-4.9) X10*3/uL [place] # (Auto) 0.1 (0.1-1.2) X10*3/uL Eos # (Auto) 0.0 (0.0-0.4) X10*3/uL Baso # (Auto) 0.0 (0.0-0.2) X10*3/uL Abs Immat Gran (auto) 0.00 (0.00-0.03) X10*3/uL Absolute Neuts (auto) 1.7 L (2.0-8.3) x10*3/uL Absolute Nucleated RBC 0.000 (0.0-0.012) X10*3/uL Nucleated RBC % (auto) 0.0 (0.0-0.2) /100WBC PT 13.8 H (10.9-12.4) SEC INR 1.2 H (0.9-1.1) Sodium 140 (135-145) mmol/L Potassium 3.4 (3.3-5.1) mmol/L Chloride 110 H (96-108) mmol/L Carbon Dioxide 19 L (22-29) mmol/L Anion Gap 14 (12-20) BUN 9 (9-16) mg/dL Creatinine 0.96 (0.5-1.4) mg/dL Estim Creat Clear Calc 94.6 Estimated GFR > 60 Random Glucose 239 H (60-115) mg/dL Calcium 9.2 (8.4-10.2) mg/dL Total Bilirubin 0.9 (0.0-1.0) mg/dL AST 40 H (5-31) U/L ALT 21 (0-31) U/L Alkaline Phosphatase 232 H (39-117) U/L Total Protein 7.5 (6.5-8.0) g/dL Albumin 3.1 L (3.5-5.0) g/dL Lipase 60 (8-78) U/L Urine Color Yellow Urine Appearance Clear Urine pH 6.5 (5.0-9.0) Ur Specific [place] 1.020 (1.005-1.025) Urine Protein 100 (2+) H (Neg-Trace) mg/dL Urine Glucose (UA) Negative (Negative) mg/dL Urine Ketones Negative (Negative) mg/dL Urine Blood Negative (Negative) Urine Nitrite Negative (Negative) Ur Leukocyte Esterase Negative (Negative) Urine RBC 0-2 (0-2) /HPF Urine WBC 6-10 H (0-5) /HPF Ur Squamous Epith Cells 3-5 (0-2) /HPF Urine Bacteria Trace (None Seen) Hyaline Casts 0-2 (0-2) /LPF Discharge Plan Discharge Clinical Impression: Chronic abdominal pain Patient Disposition: Home, Self-Care Instructions: Chronic Abdominal Pain (ED) Additional Instructions: All of your screening labs including a urinalysis were completely normal, the CT scan did not reveal any acute processes. Use the dicyclomine as needed for your chronic abdominal pain. Continue to follow up with your specialists. Prescriptions: New dicyclomine 10 mg capsule 10 mg PO QID PRN (Reason: abdominal pain) Qty: 12 0RF No Action cyclobenzaprine 10 mg tablet 5 mg PO TID pantoprazole 40 mg tablet,delayed release (DR/EC) 40 mg PO DAILY buspirone 10 mg tablet 10 mg PO TID albuterol sulfate [ProAir HFA] 90 mcg/actuation HFA aerosol inhaler 2 puff PO Q4H PRN (Reason: Wheezing) metformin 500 mg tablet extended release 24 hr 1,000 mg PO BID duloxetine 60 mg capsule,delayed release(DR/EC) 60 mg PO DAILY insulin degludec [Tresiba FlexTouch U-200] 200 unit/mL (3 mL) insulin pen 44 unit subcut DAILY budesonide-formoterol [Symbicort] 80-4.5 mcg/actuation HFA aerosol inhaler 2 puff INHALATION BID pregabalin capsule 300 mg PO BID spironolactone 25 mg tablet 25 mg PO DAILY ferrous sulfate 325 mg (65 mg iron) Tablet 325 mg PO DAILY dulaglutide 4.5 mg/0.5 mL Pen Injector 4.5 mg SUBCUT TU potassium chloride 20 mEq tablet,ER particles/crystals 20 meq PO BID oxycodone 5 mg Tablet 5 mg PO Q4H PRN (Reason: Pain, Severe (Pain Scale 7-10)) Qty: 15 0RF Rx Instructions: Partial Fill upon patient request. cefuroxime axetil 250 mg tablet 250 mg PO Q12H Qty: 6 0RF Print Language: Mozambican
[2024-05-27 19:27] LABS: MANUAL DIFF FLAG NO
[2024-05-27 19:28] LABS: Basophils Percent Auto 0.4 % (0-2); Eosinophils Percent Auto 0.4 % (0-4); Hematocrit 36.4 % (37.0-47.0); Hemoglobin 12.3 g/dl (12.0-16.0); Lymphocytes Percent Auto 35.7 % (20-40); Mean Corpuscular HGB Conc 33.8 g/dl (31.0-35.0); Mean Corpuscular Hemoglobin 30.9 pg (27.0-33.0); Mean Corpuscular Volume 91.5 fL (80.0-98.0); Mean Platelet Volume 10.5 fL (9.4-12.3); Monocytes Absolute Auto 0.1 X10*3/uL (0.1-1.2); Monocytes Percent Auto 4.3 % (2-11); Neutrophils Absolute Auto 1.7 x10*3/uL (2.0-8.3); Neutrophils Percent Auto 59.2 % (45-73); Red Blood Count 3.98 X10*6/uL (4.20-5.50); Red Cell Distribution Width 15.9 % (11.0-16.0); White Blood Count 2.8 X10*3/uL (4.8-10.8)
[2024-05-27 19:31] LABS: Platelet Count 63 X10*3/uL (160-400)
[2024-05-27 19:36] LABS: INTERNATIONAL NORM RATIO 1.2 (0.9-1.1); Prothrombin Time 13.8 SEC (10.9-12.4)
[2024-05-27 20:23] LABS: Alanine Aminotransferase 21 U/L (0-31); Albumin Level 3.1 g/dL (3.5-5.0); Alkaline Phosphatase 232 U/L (39-117); Aspartate Amino Transferase 40 U/L (5-31); Bilirubin Total 0.9 mg/dL (0.0-1.0); Blood Urea Nitrogen 9 mg/dL (9-16); Calcium 9.2 mg/dL (8.4-10.2); Creatinine Clr Calc Pharmacy 94.6; Estimated Glomerular Filt Rate > 60; Glucose Random 239 mg/dL (60-115); Lipase 60 U/L (8-78); Total Protein 7.5 g/dL (6.5-8.0)
--- OUTSIDE RECORDS SUMMARY | 2024-05-27 20:33 | XMS_ITS | Continuity of Care Document ---
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 Name Role Phone Sallie Ryan MD Unavailable [...] GIVE INSULIN INJECTIONS 1 needle - Active ProAir HFA 90 mcg/actuation aerosol inhaler inhale 2 puff by inhalation route every 4 - 6 hours as needed - Active med was lost pantoprazole 40 mg tablet,delayed release TAKE 1 TABLET BY ORAL ROUTE EVERY DAY - Active amitriptyline 50 mg tablet take 1 tablet by oral route every day at bedtime for MIGRAINE PREVENTION 50 MG - Active Ultra-Light Rollator FeZo Rolling walker with seat dx M54.9 x [...] FOR 2 WEEKS - Active Miscellaneous Script [facility] Shower chair and grab bars dx R55 [...] EST, AGE 18-39 No Charge URINALYSIS (IH) CBC W/O DIFF (CLP 58005) NEW Level 3 - Detailed HIV-1/HIV-2 AB, REFLEX WB RPR TSH GONORRHEA, DNA (CLP 19489) CHLAMYDIA (CLP 54373) LIPASE HEPATITIS B SURF AB QUANT HEPATITIS B SURFACE AG, EIA HEPATITIS C AB AZITHROMYCIN H PYLORI AB IGG (CLP 81031) CEFTRIAXONE SODIUM INJECTION GLUCOSE, RANDOM (IH) AST (CLP 13757) ALT (CLP 46024) BASIC METABOLIC PANEL AMYLASE US EXAM, ABDOM, COMPLETE TEST, URINE (IH) Advance Directives Directive Yes / No Effective Date File Name No Information Encounters Encounter Description Practice Location Reason(s) For Visit Diagnoses Date Provider Providers Copied on Encounter [facility], [address], [place], [address], [place] tel:[phone] [facility] Adult Medicine No Information 1 Connor Rizo. [address], [id number] [place], [address], [place]. tel:[phone] [facility], [place], [address], [place] tel:[phone] [facility] Adult Medicine No Information Dec-2 3-202 0 Brown Orett. [address], [id number] [address], [address], [place]. tel:[phone] [facility], [place], [address], [place] tel:[phone] [facility] Adult Medicine No Information Dec-2 1-202 0 Brown Orett. [address], [id number] [place], [address], [place]. tel:[phone] [facility], [place], [address], [place] tel:[phone] [facility] Adult Medicine No Information Jan- 2-202 0 Brown Orett. [address], [id number] [place], [address], [place]. tel: [phone] [facility], [place], [address], [place] tel:[phone] [facility] Adult Medicine No Information Oct-3 0-202 0 Brown Orett. [address], [id number] [address], [address], [place]. tel: [phone] [facility], [place], [address], [place] tel:[phone] [facility] Adult Medicine No Information Nov-2 2-202 0 Brown Orett. [address], [id number] [address], [address], [place]. tel:[phone] [facility], [place], [address], [place] tel:[phone] [facility] Adult Medicine No Information Nov-1 8-202 0 Brown Orett. [address], [id number] [place], [address], [place]. tel:[phone] [facility], [address] [place] [address], [facility] [place] tel:[phone] [facility] Adult Medicine No Information 0 Connor Rizo. [facility], [id number] [address] [place] [address], [address], [place]. tel:[phone] [facility], [address] [place] [address], [facility] [place] tel:[phone] [facility] Adult Medicine No Information 0 Connor Rizo. [facility], [id number] [address] [place] [address], [address], [place]. tel:[phone] Telephone E/M By Provider 11-20 MIN [facility], [address] [place] [address], [facility] [place] tel:[phone] [facility] Adult Medicine Telehealth (chief complaint) Kidney stonesType 2 diabetesConst ipation, unspecified constipation type 0 Connor Otttt. Nolberto [facility], [id number] [address] [place] [address], [facility] [place]. tel:[phone] [facility], [address] [place] [address], [facility] [place] tel:[phone] [facility] Adult Medicine No Information 0 Connor Otttt. [address], [id number] [address] [place] [address], [address], [place]. tel:[phone] [facility], [address] [place] [address], [facility] [place] tel:[phone] [facility] Adult Medicine No Information 0 Connor Otttt. Nolberto [facility], [id number] [address] [place] [address], [facility] [place], [place]. tel:[phone] OFFICE/OUTPT Visit, EST - DetHx, Abilio, DavidM, 25 Minutes [facility], [address] [place] [address], [facility] [place] tel:[phone] [facility] Adult Medicine Hosp F/u (chief complaint) Body mass index (BMI) 45.0-49.9, adultEncounte r for screening, unspecifiedBr east calcification sOpacity of lung on imaging studyChronic constipationT ype 2 diabetes May- 0 Connor Rizo. [address], [id number] [address] [place] [address], [address], [place]. tel:[phone] OFFICE/OUTPA TIENT VISIT, [facility], [address] [place] [address], [address], [place] tel:[phone] [facility] Adult Medicine follow up (chief complaint) Body mass index (BMI) 45.0-49.9, adultEncounte r for screening, unspecifiedSp inal stenosis, lumbar region with neurogenic claudicationH ypertrophy of breastType 2 diabetes mellitus without complications 9 Connor Rizo. 500 [facility], [id number] [address] [place] [address], [address], [place]. tel:[phone] OFFICE/OUTPA TIENT VISIT, [facility], [address] [place] [address], [facility] [place], [place] tel:[phone] [facility] Adult Medicine routine F/u (chief complaint) Body mass index (BMI) 45.0-49.9, adultEncounte r for screening, unspecifiedSp inal stenosis, lumbar region with neurogenic claudicationS ialadenitis 9 Connor Rizo. [address] [facility], [id number] [address] [place] [address], [address], [place]. tel:[phone] OFFICE/OUTPA TIENT VISIT, [facility], [address] [place] [address], [address], [place] tel:[phone] [facility] Cardiology fatigue (chief complaint)pal pitations (chief complaint)Diz ziness (chief complaint) Generalized anxiety disorderOther psychoactive substance use, unspecified with other psychoactive substance-ind uced disorderMajor depressive disorder, recurrent, moderateDorsa lgia, unspecifiedPr ediabetesPalp itations 9 No Information [facility], [address] [place] [address], [address], [place] tel:[phone] [facility] Adult Medicine No Information 9 Connor Rizo. [address], [id number] [address] [place] [address], [facility] [place], [place]. [phone] OFFICE/OUTPA TIENT VISIT, [facility], [address] [place] [address], [facility] [place], [place] tel:[phone] [facility] Adult Medicine routine f/u (chief complaint) Body mass index (BMI) 45.0-49.9, adultEncounte r for screening, unspecifiedOt her chronic painLarge breastsType 2 diabetes mellitus without complication, with long-term current use of insulinLong term (current) use of insulinBenign essential HTNChronic bilateral low back pain with sciatica, sciatica laterality unspecified 9 Connor Rizo. [address] [place], [place] [address]tiff, [id number] [address] [place] [address], [facility] [place], [place]. tel:[phone] [facility], [address] [place] [address], [facility] [place], tel:[phone] [facility] Adult Medicine [place] No Information 8 Connor Rizo. [address] [place] [address], [id number] [address] [place] [address], [facility] [place], [place]. tel:[phone] Psychotherap y, 45 Minutes With Patient [facility], [address] [place] [address], tel:[phone] [facility] Behavioral Health Generalized Anxiety DisorderCanna bis dependence, uncomplicated Major depressive disorder, recurrent, moderate 8 No Information [facility], [address] [place] [address], [facility] [place], [place] tel:[phone] [facility] Adult Medicine No Information 8 No Information OFFICE/OUTPA TIENT VISIT, [facility], [address] [place] [address], [facility] [place], [place] tel:[phone] [facility] Adult Medicine c/o Arm Pain (chief complaint) Body mass index (BMI) 45.0-49.9, adultEncounte r for screening for diabetes mellitusEncou nter for screening, unspecifiedLi ghtheadedness Oct- 8 Connor Rizo. 500 [facility], [id number] [address] [place] [address], [address], [place]. tel:[phone] OFFICE/OUTPA TIENT VISIT, [facility], [address] [place] [address], [address], [place] tel:[phone] [facility] Adult Medicine TRIAGE (chief complaint)diz zy/lightheade d with falls (chief complaint) Vasovagal reactionDorsa lgia, unspecifiedEn counter for screening, unspecifiedEn counter for test, result negative 8 No Information [facility], [address] [place] [address], [address], [place] tel:[phone] [facility] Optometry Diabetes Examination (chief complaint)Brenda betes Examination (chief complaint) Type 2 diabetes mellitus without complications Myopia, bilateral 8 No Information OFFICE/OUTPA TIENT VISIT, [facility], [address] [place] [address], [facility] [place], [place] tel:[phone] [facility] Adult Medicine Lab results (chief complaint) Type 2 diabetes mellitus without complications Essential (primary) hypertensionB neelam mass index (BMI) 45.0-49.9, adultEncounte r for screening, unspecifiedPa in of upper abdomenDermat itis 8 No Information OFFICE/OUTPA TIENT VISIT, [facility], [address] [place] [address], [address], [place] tel:[phone] [facility] Adult Medicine back Pain f/u (chief complaint) Body mass index (BMI) 40.0-44.9, adultEncounte r for screening, unspecifiedEp igastric painDorsalgia , unspecified 8 Connor Ottbrandyn. 500 [facility], [id number] [address] [place] [address], [address], [place]. tel:[phone] Psychotherap y, 45 Minutes With Patient [facility], [address] [place] [address], [address], [place] tel:[phone] [facility] Behavioral Health Anxiety disorder, unspecifiedCa nnabis use disorder, moderate 8 No Information OFFICE/OUTPA TIENT VISIT, [facility], [address] [place] [address], [facility] [place], [place] tel:[phone] [facility] Adult Medicine PRE-OP (chief complaint) Encounter for screening for diabetes mellitusBody mass index (BMI) 45.0-49.9, adultPre-op evaluationLon g term (current) use of insulinType 2 diabetes mellitus without complication, with long-term current use of insulin 0 7- 8 Connor [facility]. 500 [facility], [id number] [address] [place] [address], [address], [place]. tel:[phone] OFFICE/OUTPA TIENT VISIT, [facility], [address] [place] [address], [facility] [place], [place] tel:[phone] [facility] Adult Medicine Pre-OP #1 (chief complaint) Body mass index (BMI) 45.0-49.9, adultEncounte r for screening, unspecifiedPr e-op evaluationTyp e 2 diabetes mellitus with complication, with long-term current use of insulinLong term (current) use of insulinAnal fissure 0 8 [facility]. [address] [facility], [id number] [address] [place] [address], [address], [place]. tel:[phone] Psychotherap y, 45 Minutes With Patient [facility], [address] [place] [address], [facility] [place], [place] tel:[phone] [facility] Behavioral Health Cannabis use disorder, moderateGener alized Anxiety DisorderMajor depressive disorder, recurrent, moderate 0 2- 8 No Information Psychotherap y, 45 Minutes With Patient [facility], [address] [place] [address], [facility] [place], [place] tel:[phone] [facility] Behavioral Health Cannabis use disorder, moderateGener alized Anxiety Disorder May-2 5 8 No Information OFFICE/OUTPA TIENT VISIT, [facility], [address] [place] [address], [address], [place] tel:[phone] [facility] Adult Medicine Cough (chief complaint) Body mass index (BMI) 45.0-49.9, adultPost-marti al dripCoughEnco unter for screening, unspecified Apr-2 3- 8 No Information Psych Dx Eval [facility], [address] [place] [address], [address], [place] tel:[phone] [facility] Behavioral Health Generalized Anxiety DisorderCanna bis use disorder, moderate 8 No Information OFFICE/OUTPA TIENT VISIT, [facility], [address] [place] [address], [address], [place] tel:[phone] [facility] Adult Medicine Hemorrhoids (chief complaint) Body mass index (BMI) 45.0-49.9, adultEncounte r for screening for diabetes mellitusBleed ing internal hemorrhoids 8 [facility]. [address] [place] [address], [id number] [address] [place] [address], [address], [place]. tel:[phone] Psychotherap y, 30 Minutes With Patient [facility], [address] [place] [address], [facility] [place], [place] tel:[phone] [facility] Behavioral Health Anxiety disorder, unspecifiedCa nnabis dependence, uncomplicated 8 No Information OFFICE/OUTPA TIENT VISIT, [facility], [address] [place] [address], [address], [place] tel:[phone] [facility] Adult Medicine Corry Follow Up of diabetes (chief complaint)Fol low Up of hypertension (chief complaint) Body mass index (BMI) 40.0-44.9, adultEncounte r for screening, unspecifiedHy pertensionHea rtburnOther dorsalgiaHemo rrhoids 8 No Information OFFICE/OUTPA TIENT VISIT, [facility], [address] [place] [address], [facility] [place], [place] tel:[phone] [facility] Adult Medicine [place] Ultrasound results (chief complaint)Fol low Up of Diabetes (chief complaint)Fol low Up of Hypertension (chief complaint) Body mass index (BMI) 45.0-49.9, adultEncounte r for screening for diabetes mellitusEncou nter for screening, unspecifiedEn counter for screening for other viral diseasesType 2 diabetes mellitus without complications Hypertension 7 No Information [facility], [address] [place] [address], [address], [place] tel:[phone] [facility] Dental Encounter for dental exam and cleaning w/o abnormal findings Devin Connors. [address] [place] [address], [id number] [address] [place] [address], [id number], [place]. tel:[phone] [facility], [address] [place] [address], [address], [place] tel:[phone] [facility] Dental Encounter for screening for dental disorders No Information OFFICE/OUTPA TIENT VISIT, [facility], [address] [place] [address], [address], [place] tel:[phone] [facility] Adult Medicine [place] Abdominal pain (chief complaint)Fol low Up of Diabetes (chief complaint)Fol low Up of Hypertension (chief complaint) Body mass index (BMI) 40.0-44.9, adultEncounte r for screening for diabetes mellitusUnspe cified abdominal painMorbid obesity due to excess calories No Information OFFICE/OUTPA TIENT VISIT, [facility], [address] [place] [address], [address], [place] tel:[phone] [facility] Adult Medicine [place] Follow Up of Diabetes (chief complaint)Fol low Up of Hypertension (chief complaint)Jamie k pain (chief complaint) Body mass index (BMI) 45.0-49.9, adultEncounte r for screening for diabetes mellitusUnspe cified abdominal painEssential (primary) hypertensionT ype 2 diabetes mellitus without complications No Information OFFICE/OUTPA TIENT VISIT, [facility], [address] [place] [address], [address], [place] tel:[phone] [facility] Adult Medicine elevated blood sugar (chief complaint) Type 2 diabetes mellitus without complications Encounter for screening for diabetes mellitusBody mass index (BMI) 45.0-49.9, adultEncounte r for screening, unspecified No Information OFFICE/OUTPA TIENT VISIT, [facility], [address] [place] [address], [address], [place] tel:[phone] [facility] Adult Medicine diabetes (chief complaint) Encounter for screening, unspecifiedEs sential (primary) hypertensionT ype 2 diabetes mellitus without complications No Information Psychotherap y, 45 Minutes With Patient [facility], [address] [place] [address], [address], [place] tel:[phone] [facility] Behavioral Health Anxiety disorder, unspecifiedCa nnabis use, unspecified, uncomplicated No Information Psychotherap y, 30 Minutes With Patient [facility], [address] [place] [address], [address], [place] tel:[phone] [facility] Behavioral Health Anxiety disorder, unspecifiedCa nnabis use, unspecified, uncomplicated No Information OFFICE/OUTPA TIENT VISIT, [facility], [address] [place] [address], [address], [place] tel:[phone] [facility] Adult Medicine restless leg (chief complaint) Encounter for screening for diabetes mellitusBody mass index (BMI) 45.0-49.9, adultRestless leg syndrome No Information Psychotherap y, 45 Minutes With Patient [facility], [address] [place] [address], [address], [place] tel:[phone] [facility] Behavioral Health Anxiety disorder, unspecifiedCa nnabis dependence, uncomplicated No Information OFFICE/OUTPA TIENT VISIT, [facility], [address] [place] [address], [address], [place] tel:[phone] [facility] Behavioral Health anxiety (chief complaint) Anxiety disorder, unspecifiedCa nnabis dependence, uncomplicated No Information OFFICE/OUTPA TIENT VISIT, [facility], [address] [place] [address], [address], [place] tel:[phone] [facility] Adult Medicine Rash/frequent urination (chief complaint) Body mass index (BMI) 45.0-49.9, adultEncounte r for screening for diabetes mellitusRashH yperglycemiaE ncounter for screening, unspecified No Information [facility], [address] [place] [address], [address], [place] tel:[phone] [facility] Dental Dental caries on pit and fissure surfc penetrat into dentin 6 No Information OFFICE/OUTPA TIENT VISIT, [facility], [address] [place] [address], [address], [place] tel:[phone] [facility] Behavioral Health anxiety (chief complaint) Anxiety disorder, unspecifiedCa nnabis dependence, uncomplicated Dec-3 0- 6 No Information PsyTxPt And Family 45 Minutes [facility], [address] [place] [address], [facility] [place], [place] tel:[phone] [facility] Behavioral Health Anxiety disorder, unspecifiedCa nnabis dependence, uncomplicated 6 No Information OFFICE/OUTPA TIENT VISIT, [facility], [address] [place] [address], [facility] [place], [place] tel:[phone] [facility] Behavioral Health anxiety (chief complaint) Anxiety disorder, unspecifiedCa nnabis use, unspecified, uncomplicated 6 No Information OFFICE/OUTPA TIENT VISIT, [facility], [address] [place] [address], [facility] [place], [place] tel:[phone] [facility] Adult Medicine Corry Follow Up of Diabetes (chief complaint)Fol low Up of Hypertension (chief complaint)abd ominal pain (chief complaint) Encounter for immunizationE ncounter for screening for diabetes mellitusType 2 diabetes mellitus without complications HypertensionU nspecified abdominal pain 6 No Information OFFICE/OUTPA TIENT VISIT, [facility], [address] [place] [address], [address], [place] tel:[phone] [facility] Behavioral Health Substance abuse (chief complaint) Anxiety disorder, unspecifiedCa nnabis use, unspecified, uncomplicated Oct- 6 No Information OFFICE/OUTPA TIENT VISIT, [facility], [address] [place] [address], [address], [place] tel:[phone] [facility] Adult Medicine rash (chief complaint) Encounter for screening for diabetes mellitusBody mass index (BMI) 45.0-49.9, adultRash and nonspecific skin eruption Oct- 6 No Information OFFICE/OUTPA TIENT VISIT, [facility], [address] [place] [address], [address], [place] tel:[phone] [facility] Adult Medicine Corry Follow Up of Hypertension (chief complaint)Blo od work results (chief complaint) Type 2 diabetes mellitus without complications HypertensionB ack pain 6 No Information OFFICE/OUTPA TIENT VISIT, [facility], [address] [place] [address], [address], [place] tel:[phone] [facility] Behavioral Health anxiety (chief complaint) Anxiety disorder, unspecifiedCa nnabis use, unspecified, uncomplicated 6 No Information PsyTxPt And Family 45 Minutes [facility], [address] [place] [address], [address], [place] tel:[phone] [facility] Behavioral Health Anxiety disorder, unspecifiedCa nnabis dependence, uncomplicated 6 No Information OFFICE/OUTPA TIENT VISIT, [facility], [address] [place] [address], [address], [place] tel:[phone] [facility] Adult Medicine asthma (chief complaint)Tri age (chief complaint) Asthma exacerbation 6 No Information OFFICE/OUTPA TIENT VISIT, [facility], [address] [place] [address], [address], [place] tel:[phone] [facility] Behavioral Health Anxiety (chief complaint) Anxiety disorder, unspecified 6 No Information PsyTxPt And Family 45 Minutes [facility], [address] [place] [address], [address], [place] tel:[phone] [facility] Behavioral Health Anxiety disorder, unspecified 6 No Information OFFICE/OUTPA TIENT VISIT, [facility], [address] [place] [address], [address], [place] tel:[phone] [facility] Adult Medicine [place] Follow Up of Last visit (chief complaint) Unspecified abdominal pain 6 No Information OFFICE/OUTPA TIENT VISIT, [facility], [address] [place] [address], [address], [place] tel:[phone] [facility] Behavioral Health anxiety (chief complaint) Anxiety disorder, unspecifiedBi polar disord, crnt epsd depress, sev, w/o psych features 6 No Information PsyTxPt And Family 45 Minutes [facility], [address] [place], [address], [place] tel:[phone] [facility] Behavioral Health Anxiety disorder, unspecifiedBi polar disord, crnt epsd depress, sev, w/o psych features June-0 2-201 6 No Information OFFICE/OUTPA TIENT VISIT, [facility], [address] [place], [address], [place] tel:[phone] [facility] Behavioral Health anxiety (chief complaint) Cannabis dependence, uncomplicated Major depressive disorder, recurrent, moderate Apr-1 3-201 6 No Information PsyTXPt And Family 60 Min [facility], [address] [place], [address], [place] tel:[phone] [facility] Behavioral Health Cannabis dependence, uncomplicated Major depressive disorder, recurrent, moderate Apr-1 1- 6 No Information PsyTxPt And Family 45 Minutes [facility], [address] [place] [address], [address], [place] tel:[phone] [facility] Behavioral Health anxiety (chief complaint) Bipolar disord, crnt epsd depress, sev, w/o psych featuresCanna bis use, unspecified, uncomplicated Mar-3 1- 6 No Information Psych Diag Eval W/Med Serv [facility], [address] [place], [address], [place] tel:[phone] [facility] Behavioral Health Initial Assessment (chief complaint) Bipolar disord, crnt epsd depress, sev, w/o psych featuresCanna bis use, unspecified, uncomplicated Mar-3 0-201 6 No Information PsyTxPt And Family 45 Minutes [facility], [address] [place], [address], [place] tel:[phone] [facility] Behavioral Health anxiety (chief complaint) Bipolar disord, crnt epsd depress, sev, w/o psych featuresCanna bis use, unspecified, uncomplicated Mar-2 3-201 6 No Information OFFICE/OUTPA TIENT VISIT, [facility], [address] [place], [address], [place] tel:[phone] [facility] Adult Medicine [place] MRI results (chief complaint) 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 Apr- 6 No Information PsyTxPt And Family 45 Minutes [facility], [address] [place], [address], [place] tel:[phone] [facility] Behavioral Health anxiety (chief complaint) Bipolar disord, crnt epsd depress, sev, w/o psych featuresCanna bis use, unspecified, uncomplicated Apr- 6 No Information PsyTxPt And Family 45 Minutes [facility], [address] [place], [address], [place] tel:[phone] [facility] Behavioral Health anxiety (chief complaint) Bipolar disord, crnt epsd depress, sev, w/o psych featuresCanna bis use, unspecified, uncomplicated 6 No Information PsyTXPt And Family 60 Min [facility], [address] [place], [address], [place] tel:[phone] [facility] Behavioral Health Bipolar disord, crnt epsd depress, sev, w/o psych featuresCanna bis use, unspecified, uncomplicated Mar- 6 No Information OFFICE/OUTPA TIENT VISIT, [facility], [address] [place], [address], [place] tel:[phone] [facility] Adult Medicine [place] Lower back pain (chief complaint)Med refill (chief complaint) Dorsalgia, unspecified 6 No Information OFFICE/OUTPA TIENT VISIT, [facility], [address] [place] [address], [address], [place] tel:[phone] [facility] Adult Medicine [place] Follow Up of Last visit (chief complaint) Other dorsalgiaUnsp ecified abdominal pain 6 No Information Psych Dx Eval [facility], [address] [place], [address], [place] tel:[phone] [facility] Behavioral Health Initial Assessment (chief complaint) Bipolar disord, crnt epsd depress, sev, w/o psych featuresCanna bis use, unspecified, uncomplicated 6 Helder Letriece. [address] [facility], [id number] [address] [place] [address], [id number], . tel:[phone] OFFICE/OUTPA TIENT VISIT, [facility], [address] [place] [address], [address], [place] tel:[phone] [facility] Adult Medicine Results (chief complaint)Jamie k pain (chief complaint) Pain in right knee 0 6 No Information [facility], [address] [place] [address], [address], [place] tel:[phone] [facility] Adult Medicine [place] Blood work results (chief complaint)Jamie k pain (chief complaint) PrediabetesOt her dorsalgia 5 No Information OFFICE/OUTPA TIENT VISIT, [facility], [address] [place] [address], [address], [place] tel:[phone] [facility] Adult Medicine Follow Up of Last visit (chief complaint)BP check (chief complaint) Morbidly overweightAnk le pain 5 No Information OFFICE/OUTPA TIENT VISIT, [facility], [address] [place] [address], [address], [place] tel:[phone] [facility] Adult Medicine [place] Follow Up of Last visit (chief complaint) abdominal painAnkle pain 5 No Information OFFICE/OUTPA TIENT VISIT, [facility], [address] [place] [address], [address], [place] tel:[phone] [facility] Adult Medicine [place] Follow Up of ER with pain (chief complaint) abdominal painBack pain 5 No Information OFFICE/OUTPA TIENT VISIT, [facility], [address] [place] [address], [address], [place] tel:[phone] [facility] Adult Medicine [place] Blood work results (chief complaint)X ray results (chief complaint) Liver and spleen enlargement - 5 No Information OFFICE/OUTPA TIENT VISIT, [facility], [address] [place] [address], [address], [place] tel:[phone] [facility] Adult Medicine [place] lab results (chief complaint) Prediabetic nonclinical diabetesVitam in D deficiencyAbn ormal function test of the liver Fe 5 No Information OFFICE/OUTPA TIENT VISIT, [facility], [address] [place] [address], [address], [place] tel:[phone] [facility] Adult Medicine [place] Med refill (chief complaint)Fol low Up of ER with stomach pain (chief complaint)jamie k pain (chief complaint)hyp ertension (chief complaint) abdominal painBack painHypertens ion 5 No Information OFFICE/OUTPA TIENT VISIT, [facility], [address] [place], [address], [place] tel:[phone] [facility] Adult Medicine [place] Med refill Tramadol (chief complaint) Issue of repeat prescriptions 4 No Information [facility], [address] [place] [address], [address], [place] tel:[phone] [facility] Behavioral Health Cannabis dependence, unspecified usePosttrauma tic stress disorderMajor depressive affective disorder, recurrent episode, moderate degree 4 No Information OFFICE/OUTPA TIENT VISIT, [facility], [address] [place] [address], [address], [place] tel:[phone] [facility] Adult Medicine [place] Back and neck pain (chief complaint)Med refill (chief complaint) Knee painBack painIssue of repeat prescriptions 4 No Information OFFICE/OUTPA TIENT VISIT, [facility], [address] [place] [address], [address], [place] tel:[phone] [facility] Adult Medicine [place] c/o right side lower back pain (chief complaint) Back pain 4 No Information OFFICE/OUTPA TIENT VISIT, [facility], [address] [place] [address], [address], [place] tel:[phone] [facility] Adult Medicine [place] Med refill (chief complaint) Unspecified internal derangement of kneeEncounter for administrativ e purposeIssue of repeat prescriptions 4 No Information PsyTXPT And Family 30 Minutes [facility], [address] [place] [address], [address], [place] tel:[phone] [facility] Behavioral Health AnxietyDrug-i nduced mood disorderPostt raumatic stress disorderMajor depressive affective disorder, recurrent episode, moderate degreeCannabi s dependence, unspecified use 3- 4 No Information OFFICE/OUTPA TIENT VISIT, EST [facility], [address] [place] [address], [address], [place] tel:[phone] [facility] Behavioral Health anxiety (chief complaint) AnxietyCannab is abuseDrug-ind uced mood disorderPostt raumatic stress disorderMajor depressive affective disorder, recurrent episode, moderate degree 0 1- 4 No Information [facility], [address] [place] [address], [address], [place] tel:[phone] [facility] Adult Medicine [place] Med refill (chief complaint)Vom iting (chief complaint) No Information 4 No Information PsyTXPT And Family 30 Minutes [facility], [address] [place] [address], [facility] [place], [place] tel:[phone] [facility] Behavioral Health No Information 0 2 4 No Information Psych Diag Eval W/Med Serv [facility], [address] [place] [address], [address], [place] tel:[phone] [facility] Behavioral Health depression (chief complaint) Major depressive affective disorder, recurrent episode, moderate degreeCannabi s dependence, unspecified useAnxietyPos ttraumatic stress disorderDrug- induced mood disorder 4 No Information PsyTxPt And Family 45 Minutes [facility], [address] [place] [address], [address], [place] tel:[phone] [facility] Behavioral Health No Information 0 4 No Information [facility], [address] [place] [address], [address], [place] tel:[phone] [facility] Adult Medicine [place] No Information 0 4 No Information PsyTxPt And Family 45 Minutes [facility], [address] [place] [address], [address], [place] tel:[phone] [facility] Behavioral Health No Information Apr-2 4 No Information Psych Dx Eval [facility], [address] [place] [address], [address], [place] tel:[phone] [facility] Behavioral Health depression (chief complaint) Major depressive affective disorder, recurrent episode, moderate degreeCannabi s dependence, unspecified useAnxietyPos ttraumatic stress disorder 4 No Information OFFICE/OUTPA TIENT VISIT, [facility], [address] [place], [address], [place] tel:[phone] [facility] Adult Medicine [place] Med refill (chief complaint) GENERALIZED PAIN 4 No Information OFFICE/OUTPA TIENT VISIT, [facility], [address] [place], [address], [place] tel:[phone] [facility] Adult Medicine [place] Pain med refill (chief complaint) Backache 4 No Information OFFICE/OUTPA TIENT VISIT, [facility], [address] [place], [address], [place] tel:[phone] [facility] Adult Medicine [place] Pain medication (chief complaint) BackacheSpasm of muscleUnspeci fied internal derangement of knee 3 No Information OFFICE/OUTPA TIENT VISIT, [facility], [address] [place] [address], [address], [place] tel:[phone] [facility] Adult Medicine [place] back pain (chief complaint) BackacheSpasm of muscle 3 No Information PREV VISIT, [facility], AGE 18-39 [facility], [address] [place] [address], [address], [place] tel:[phone] [facility] Adult Medicine [place] Physical (chief complaint) EXAM EARS & HEARING NECRoutine Medical ExamInfluenza VaccineBackac heObesity, MorbidNEED FOR PROPHYLACTIC VACCINATION WITH COMBINED DIPHTHERIA-TE TANUS-PERTUSS IS (DTP) (DTAP) VACCINE 3 No Information [facility], [address] [place], [address], [place] tel:[phone] [facility] Dental No Information 3 Mika Cantor. [address] [facility], [id number] [address] [place] [address], [id number], [place]. tel:[phone] Referring Provider: Devaughn Brennan, [address] [facility] [id number] [facility], [place], [address] . tel:[phone] [facility], [address] [place] [address], [address], tel:[phone] Conversion URINARY TRACT INFECTIONHELI COBACTER PYLORI (H. PYLORI) INFECTION 0 No Information [facility], [address] [place] [address], [facility] [place], [place] tel:[phone] [facility] Adult Medicine No Information 0 No Information [facility], [address] [place] [address], [facility] [place], [place] tel:[phone] Conversion abdominal painESOPHAGEA L REFLUXexposed to venereal disease 0 No Information NEW Level 3 - Detailed [facility], [address] [place] [address], [facility] [place], tel:[phone] [facility] Adult Medicine No Information 0 No Information [...] preservative free, 3 years and older Afluria [id number] administered Source: New Immu nization Record Influenza, seasonal, injectable administered Source: New Immuniza tion Record Influenza, seasonal, injectable administered Source: New Immuniza tion Record Tdap administered Source: New Imm unization Record flu (split) preservative magdi e, 3 yrs or older administered Source: New Immuniza tion Record Payers Payer name Insurance type Covered constitution party ID Authoranitha black(s) IAN Szymanski [id number] IAN Ramirez A [id number] IAN Ramirez A [id number] IAN Ramirez A [id number] IAN Szymanski [id number] Social History Type Description Quantity Date Captured [...] cessation counseling completed Referral Ordered: Referrals: Location: [facility] Podiatry ordered Referral Ordered: Referrals: Home Care [...] participants): Patient, Dr. Ryan@ UTI and Kidney Dmbnjr61/29/20 - was treated for UTI and kidney [...] No med changes for now. Advised to Phmvn1yc post meal sugars and not random. May consider decreasing Lantus. Check A1C.06/16/17 - CBG 150. Labs A1C 5.9. Hold Metformin the morning of qfnnxjo83/26/18 - POC A1C 6.603/07/29 - FS 227. [...] stress. will decrease Tresiba to 44 units@ Zeqialqjcxhr40/29/20 - has hard BM every 2-3 days and over last month having blood with first BM. Not very painful. She has hx of fissure with surgery to repair it. A/P = Chronic constipation. Start Linzess. 145mcg. F/u in 3 weeks09/16/19 - with Linzess, having daily BMs and not straining.@ Breast ljehcevmsxqitt59/29/20 - noted on both breasts on CT scan. Will do diagnostic Mammogram. f/u in 3 weeks09/16/19 - Mammo on 06/22 was normal. @ Lung xeuczc34/29/20 - noted on CT of abdomen. No Cough or increased SOB form baseline. Will do CXR f/u in 3 weeks.09/16/19 - x-ray was normal @ Lymphadentitis?12/25/18 - Recent Strep throat and given PCN but still has sore throat. Augmentin x 5 day for lymphadentitis?@ Pdsevbawy19/13/19 - takes a few Fioricet Plus Excedrin to abort headaches. Headaches occr multiple times a week and taking abortive meds every1-2 days. Poor sleep. A/P = Amitriptyline HS. aim to reduce abortive med use. @ Chronic Low back pain with Radicular symptoms + Large Wlygnt92/07/18 - reports hx of low back pain with pain traveling down back of leg to feet. Taking lyrica 50mg BID. A/P = Need to review imaging (pt reports disk problems) and consider titrating Zwbbdk87/21/18 - MRI showing L4-L5 Degenerative Changes. Moderate Canal Stenosis and Neural foraminal stenosis. Increase to 150mg lyrica. M.M. provider info given.04/15/18 - Pain i still very bad. Radiates into legs with numbness. Unable to stand or walk for too long without pain. No saddle anesthesias. A/p = Breast Surgeon Vouisgnp31/10/19 - Back pain stills severe. Appt in [...] without medication. Will get BP machine from [employer] Srmagyws00/13/19 - 117/77. @ Central Abdominal Pain04/15/18 - For along time has episode central abdominal pain. Noticed bulge in center of stomach. Was told she has hernia in the past. Has central wall defect on exam A/p = Likely Symptomatic abdominal hernia. Will refer to gen surg in near future.@ Dizziness - light oinopdddp37/23//18 other provider - Patient presents to the [...] imodium RX and reviewing low FODMAP diet@ Hraglax13/03/18 - She went to bariatric seminar, but there was a mixup with getting a bariatric appt. Has chronic back pain, Right Knee OA HTN, DM, Fatty Liver. A/P Will refer again in the future.06/30/17 - almost completed [place] program but there was a problem with 2 missed nutrition appt (patient tells me it was the programs fault due to scheduling). She went to but the wrong referral was sent to them.@ Anal Ukapedp33/03/18 - Patient having surgery to sphincter on [...] No med changes for now. Advised to Xillx3tf post meal sugars and not random. May consider decreasing Lantus. Check A1C.06/16/17 - CBG 150. Labs A1C 5.9. Hold Metformin the morning of ozijrec17/26/18 - POC A1C 6.603/07/29 - FS 227. [...] 60 units. Start Ozempic 0.5mg weekly. @ Kmsrlpyndavp78/29/20 - has hard BM every 2-3 days and over last month having blood with first BM. Not very painful. She has hx of fissure with surgery to repair it. A/P = Chronic constipation. Start Linzess. 145mcg. F/u in 3 weeks@ Breast hrjkmzeuuulfvw90/29/20 - noted on both breasts on CT scan. Will do diagnostic Mammogram. f/u in 3 weeks@ Lung lcyoiv77/29/20 - noted on CT of abdomen. No Cough or increased SOB form baseline. Will do CXR f/u in 3 weeks.@ Lymphadentitis?12/25/18 - Recent Strep throat and given PCN but still has sore throat. Augmentin x 5 day for lymphadentitis?@ Ivewzcchf16/13/19 - takes a few Fioricet Plus Excedrin to abort headaches. Headaches occr multiple times a week and taking abortive meds every1-2 days. Poor sleep. A/P = Amitriptyline HS. aim to reduce abortive med use. @ Chronic Low back pain with Radicular symptoms + Large Rwchol67/07/18 - reports hx of low back pain with pain traveling down back of leg to feet. Taking lyrica 50mg BID. A/P = Need to review imaging (pt reports disk problems) and consider titrating Nmlgcb40/21/18 - MRI showing L4-L5 Degenerative Changes. Moderate Canal Stenosis and Neural foraminal stenosis. Increase to 150mg lyrica. M.M. provider info given.04/15/18 - Pain i still very bad. Radiates into legs with numbness. Unable to stand or walk for too long without pain. No saddle anesthesias. A/p = Breast Surgeon Xquvuzms29/10/19 - Back pain stills severe. Appt in [...] without medication. Will get BP machine from [employer] Tykdxjee18/13/19 - 117/77. @ Central Abdominal Pain04/15/18 - For along time has episode central abdominal pain. Noticed bulge in center of stomach. Was told she has hernia in the past. Has central wall defect on exam A/p = Likely Symptomatic abdominal hernia. Will refer to gen surg in near future.@ Dizziness - light ymgraztsd63/23//18 other provider - Patient presents to the [...] imodium RX and reviewing low FODMAP diet@ Yazwngb14/03/18 - She went to bariatric seminar, but there was a mixup with getting a bariatric appt. Has chronic back pain, Right Knee OA HTN, DM, Fatty Liver. A/P Will refer again in the future.06/30/17 - almost completed [place] program but there was a problem with 2 missed nutrition appt (patient tells me it was the programs fault due to scheduling). She went to but the wrong referral was sent to them.@ Anal Ocljwre00/03/18 - Patient having surgery to sphincter on [...] throat. Augmentin x 5 day for lymphadentitis?@ Ltxiiwxjb22/13/19 - takes a few Fioricet Plus Excedrin to abort headaches. Headaches occr multiple times a week and taking abortive meds every1-2 days. Poor sleep. A/P = Amitriptyline HS. aim to reduce abortive med use. @ Chronic Low back pain with Radicular symptoms + Large Giqfwu50/07/18 - reports hx of low back pain with pain traveling down back of leg to feet. Taking lyrica 50mg BID. A/P = Need to review imaging (pt reports disk problems) and consider titrating Dxhanj68/21/18 - MRI showing L4-L5 Degenerative Changes. Moderate Canal Stenosis and Neural foraminal stenosis. Increase to 150mg lyrica. M.M. provider info given.04/15/18 - Pain i still very bad. Radiates into legs with numbness. Unable to stand or walk for too long without pain. No saddle anesthesias. A/p = Breast Surgeon Tucpmrot84/10/19 - Back pain stills severe. Appt in [...] No med changes for now. Advised to Olviv2sz post meal sugars and not random. May [...] without medication. Will get BP machine from [employer] Qlznenbk52/13/19 - 117/77. @ Central Abdominal Pain04/15/18 - For along time has episode central abdominal pain. Noticed bulge in center of stomach. Was told she has hernia in the past. Has central wall defect on exam A/p = Likely Symptomatic abdominal hernia. Will refer to gen surg in near future.@ Dizziness - light xhsknhivv27/23//18 other provider - Patient presents to the [...] imodium RX and reviewing low FODMAP diet@ Slbyemq29/03/18 - She went to bariatric seminar, but there was a mixup with getting a bariatric appt. Has chronic back pain, Right Knee OA HTN, DM, Fatty Liver. A/P Will refer again in the future.06/30/17 - almost completed [place] program but there was a problem with 2 missed nutrition appt (patient tells me it was the programs fault due to scheduling). She went to but the wrong referral was sent to them.@ Anal Nfyplab30/03/18 - Patient having surgery to sphincter on [...] right side06/10/18 - was in [place] in [facility]. for Sialadenitis that started the previous friday. Given Augmentin and advised to use sour candy and lemon to help. Pain has greatly improved but not back to baseline yet. Advised pt to complete Abx and c/w sour and lemon. routine F/u @ Hospital F/u f or Sialadenitis on right side06/10/18 - was in [place] in [facility]. for Sialadenitis that started the previous friday. Given Augmentin and advised to use sour candy and lemon to help. Pain has greatly improved but not back to baseline yet. Advised pt to complete Abx and c/w sour and lemon.@ Chronic Low back pain with Radicular symptoms + Large Uukpuf26/07/18 - reports hx of low back pain with pain traveling down back of leg to feet. Taking lyrica 50mg BID. A/P = Need to review imaging (pt reports disk problems) and consider titrating Cdbnkj26/21/18 - MRI showing L4-L5 Degenerative Changes. Moderate Canal Stenosis and Neural foraminal stenosis. Increase to 150mg lyrica. M.M. provider info given.04/15/18 - Pain i still very bad. Radiates into legs with numbness. Unable to stand or walk for too long without pain. No saddle anesthesias. A/p = Breast Surgeon Asnfkddl95/10/19 - Back pain stills severe. Appt in [...] without medication. Will get BP machine from [facility]@ DM Type - CBG 170. Fasting 80-90. Evening CBG around 170-190. Last a1c 5.9 (02/2017). Patient complaint with medications as prescribed. A/P = Well Controlled DM. No med changes for now. Advised to Jnjlb6ik post meal sugars and not random. May [...] C/w metformin. New Glucometer.@ Dizziness - light zuckfkbqa02/23//18 other provider - Patient presents to the [...] imodium RX and reviewing low FODMAP diet@ Xppvneg36/03/18 - She went to bariatric seminar, but there was a mixup with getting a bariatric appt. Has chronic back pain, Right Knee OA HTN, DM, Fatty Liver. A/P Will refer again in the future.06/30/17 - almost completed [place] program but there was a problem with 2 missed nutrition appt (patient tells me it was the programs fault due to scheduling). She went to but the wrong referral was sent to them.@ Anal Bvufhno50/03/18 - Patient having surgery to sphincter on [...] at home - will order VN and VP PATIENT@ Chronic Low back pain with Radicular symptoms + Large Jexvia42/07/18 - reports hx of low back pain with pain traveling down back of leg to feet. Taking lyrica 50mg BID. A/P = Need to review imaging (pt reports disk problems) and consider titrating Tqkcxy40/21/18 - MRI showing L4-L5 Degenerative Changes. Moderate [...] without medication. Will get BP machine from [facility]@ DM Type - CBG 170. Fasting 80-90. Evening CBG around 170-190. Last a1c 5.9 (02/2017). Patient complaint with medications as prescribed. A/P = Well Controlled DM. No med changes for now. Advised to Cnsfu2vh post meal sugars and not random. May consider decreasing Lantus. Check A1C.06/16/17 - CBG 150. Labs A1C 5.9. Hold Metformin the morning of rinovhj00/26/18 - POC A1C 6.603/07/29 - FS 227. [...] C/w metformin. New Glucometer.@ Dizziness - light pnvnqxbif84/23//18 other provider - Patient presents to the [...] imodium RX and reviewing low FODMAP diet@ Bnoffzd15/03/18 - She went to bariatric seminar, but there was a mixup with getting a bariatric appt. Has chronic back pain, Right Knee OA HTN, DM, Fatty Liver. A/P Will refer again in the future.06/30/17 - almost completed [place] program but there was a problem with 2 missed nutrition appt (patient tells me it was the programs fault due to scheduling). She went to but the wrong referral was sent to them.@ Anal Qeserad73/03/18 - Patient having surgery to sphincter on [...] Arm Pain @ Dizziness - li ght farljoqap02/23//18 other provider - Patient presents to the [...] No med changes for now. Advised to Lsuxq9aq post meal sugars and not random. May consider decreasing Lantus. Check A1C.06/16/17 - CBG 150. Labs A1C 5.9. Hold Metformin the morning of sozqfvv97/21/18 - CBG 138. 11/05/17 - FS A1C 6.6@ Chronic Low back pain with Radicular uxhohkpr43/07/18 - reports hx of low back pain with pain traveling down back of leg to feet. Taking lyrica 50mg BID. A/P Need to review imaging (pt reports disk problems) and consider titrating Qiaghc24/21/18 - L4-L5 Degenerative Changes. Moderate Canal Stenosis [...] imodium RX and reviewing low FODMAP diet@ Ireezpi17/03/18 - She went to bariatric seminar, but there was a mixup with getting a bariatric appt. Has chronic back pain, Right Knee OA HTN, DM, Fatty Liver. A/P Will refer again in the future.06/30/17 - almost completed [place] program but there was a problem with 2 missed nutrition appt (patient tells me it was the programs fault due to scheduling). She went to but the wrong referral was sent to them.@ Anal Wfkdhdx89/03/18 - Patient having surgery to sphincter on [...] nor outside of the home.EKG WNL in [facility] negative TRIAGE 10/02/2017 @ 4:3 0 PMPt presenting to AM secretary receptionist with complaints of dizziness. cma: This is a 41 year old, female [...] Chronic Low ba ck pain with Radicular sckmkevz01/07/18 - reports hx of low back pain with pain traveling down back of leg to feet. Taking lyrica 50mg BID. A/P Need to review imaging (pt reports disk problems) and consider titrating Lvyftf55/21/18 - L4-L5 Degenerative Changes. Moderate Canal Stenosis [...] imodium RX and reviewing low FODMAP diet@ Kfayput84/03/18 - She went to bariatric seminar, but there was a mixup with getting a bariatric appt. Has chronic back pain, Right Knee OA HTN, DM, Fatty Liver. A/P Will refer again in the future.06/30/17 - almost completed [place] program but there was a problem with [...] No med changes for now. Advised to Wwbai8vm post meal sugars and not random. May consider decreasing Lantus. Check A1C.06/16/17 - CBG 150. Labs A1C 5.9. Hold Metformin the morning of qepfxsb02/21/18 - CBG 138. @ Anal Hrduops88/03/18 - Patient having surgery to sphincter on 06/19/17. @ Histories A/P: Patient is low/moderate risk for a low Risk procedure. She can proceed with surgery as planned and is medically optimized. Her labs are within normal limits for surgery. Hold Metformin Morning of surgery.Procedure: Lateral Internal Sphincterotomy @ [facility] with Dr. Josh Singleton, on 06/19/17Anesthesia [...] Morning of surgery.Procedure: Lateral Internal Sphincterotomy @ [facility] with Dr. Josh Singleton, on 06/19/17Anesthesia [...] pain (would consider medical Marijuana @ Anal Irhqkid73/03/18 - Patient having surgery to sphincter on 06/19/17. @ DM Type - CBG 170. Fasting 80-90. Evening CBG around 170-190. Last a1c 5.9 (02/2017). Patient complaint with medications as prescribed. A/P = Well Controlled DM. No med changes for now. Advised to Mvlmi6gm post meal sugars and not random. May [...] reports disk problems) and consider titrating Lyrica@ Bujwufm56/03/18 - She went to bariatric seminar, but [...] medically optimized. Procedure: Lateral Internal Sphincterotomy @ [facility] with Dr. Josh Singleton, on 06/19/17Anesthesia [...] pain (would consider medical Marijuana @ Anal Alnrjtz54/03/18 - Patient having surgery to sphincter on 06/19/17. @ DM Type - CBG 170. Fasting 80-90. Evening CBG around 170-190. Last a1c 5.9 (02/2017). Patient complaint with medications as prescribed. A/P = Well Controlled DM. No med changes for now. Advised to Rqhcy0wv post meal sugars and not random. May consider decreasing Lantus. Check A1C.@ Rvykesz39/03/18 - She went to bariatric seminar, but [...] blood sugar She was see n at [facility] on Apr 26. [...] has trouble sleeping due to the itching. Blood work results lab results d iscussed with patient and time was allowed time to as questionsPlt 137glucose 149A1C 6.6trig 166 Vitamin D 26 up from Follow Up of Hypertension Pertin ent negatives include chest pain, claudication, confusion, diaphoresis, dyspnea, epistaxis, fatigue, headache, hematuria, irregular heartbeat/palpitations, nausea, tinnitus, transient weakness, tremor, visual disturbances and vomiting. Additional information: today BP is 126/86, patient states at home systolic has up to 190 anxiety The patient pres ents with anxious/fearful [...] and she is breathing more comfortably, notified secretary receptionist that this patient has to be put [...] is associated with chronic pain and irritability. Results 2 hours glucose test - negative , results reviewed with patient and time was allowed for questions Back pain Additional infor mation: lower back pain which radiated to both legs, worse in the past 2 years, complaining of right knee pain. Blood work results lab results d iscussed with patient and time was alllowed for questions Back pain Symptoms are agg ravated by bending, flexion and lifting. Additional information: Hx. of chronic lower back worse in the past 2 weeks which radiates to her right leg. Follow Up of Last visit x-ray of right ankle was not performed; still complaining of pain and leg given out. BP check Follow Up of Last visit States h [...] consistent with fatty change. Enlarg liver measuring [id number]; Splenomegaly measuring 15.8 cm in greatest dimension [...] pain. Has 1st PT appt 01/11. Physical [facility] medical gavin little at [facility]: 2009. Moved to [place]. Returned to [place] 6 months ago. Is living in [place].Notes untreated depression, anxiety and high blood pressure [...] wearing a brace until recently.Health Maintenance1) Pap: ) dental: 56585) eye: 05/2012 Functional Status Date Functional Assessmen [...] Bod y mass index (BMI) 45.0-49.9, adult Weight monitoring Related to Bod y mass index (BMI) 45.0-49.9, adult Dietary management e ducation, guidance, and counseling Related to Body mass index (BMI) 45.0-49.9, adult r/o structural [...] Related to Myopia, bilateral Impression/Plan Related to Myopi a, bilateral Impression/Plan Related to Type 2 diabetes mellitus without complications use lotrisone cream. Related to Dermatitis GI [...] ordered Related to Unspe cified abdominal pain Giving encouragement to exercise Related to Body mass index (BMI) 40.0-44.9, adult Lifestyle education regarding di et Related [...] 2:45 pm to see Dalia in the [place] Office.??? Start Lantus 20 units every evening [...] electronically to your pharmacy ([facility]). ??? Return to the Clinic if you have any problems or concerns: worse rash, increased ithing, fever, discharge/pus, etfc. Related to Rash and nonspecific skin eruption Weight monitoring Related to Bod y mass index (BMI) 45.0-49.9, adult Dietary management e ducation, guidance, and counseling Related to Body mass index (BMI) 45.0-49.9, adult Newly diagnosed [...]
--- OUTSIDE RECORDS SUMMARY | 2024-05-27 20:33 | XMS_ITS | Clinical Summary ---
Author Organization 175 [facility] Address [address] [place] [address] Phone Care Team Providers Care Dental Manager Name Role Phone [facility] Primary Care Provider [phone] Allergies Active Allergy Reactions Criticality Noted Date Comments Acetaminophen 04/28/2024 Medications ibuprofen (ADVIL,MOTRIN) 600 mg tablet Take 1 tablet (600 mg total) by mouth every 8 (eight) hours if needed for moderate pain. 30 tablet 5 Active traMADoL (ULTRAM) 50 mg tablet Take 1 tablet (50 mg total) by mouth every 6 (six) hours if needed for severe pain for up to 3 days. Max Daily Amount: 200 mg 12 tablet 5 05/03/19 25 Encounters Date Type Department Care Team Description 05/17/2024 8:25 PM EDT - 05/18/2024 4:21 AM EDT [facility] Emergency [address] [place] [id number] Discharge Disposition: Left Against Medical Advice 04/28/2024 11:53 PM EDT - 04/29/2024 6:10 AM EDT [facility] Emergency [address] [place] [phone] Right upper quadrant abdominal pain (Primary Dx) Discharge Disposition: Home or Self Care from Last 3 Months Medical History Medical History Date Comments Cirrhosis (CMS/HCC V24, CMS/HCC V28) Diabetes mellitus (CMS/HCC V24, CMS/HCC V28) Depression Anxiety Social History Tobacco Use Types Packs/Day Years Used Date Smoking Tobacco: Every Day Cigarettes Smokeless Tobacco: Never Tobacco Cessation:Ready to Q uit: Not Asked; Counseling Given: Not Answered Alcohol Use Standard Drinks/Week Comments Never 0 (1 standard drink = 0.6 oz pur e alcohol) Comments No Sex and Gender Information Value Date Recorded Sex Assigned at Female 04/29/2024 12:06 AM EDT Legal Sex Female 6:52 PM EST Gender Identity Female 04/29/2024 12:06 AM EDT Sexual Orientation Straight 04/29/2024 12 :06 AM EDT Obstetrics History Last Filed Vital Signs Vital Sign Reading Time Taken Comments Blood Pressure 103/64 05/18/2024 1:35 AM EDT Pulse 86 05/18/2024 1:35 AM EDT Temperature 37.4 ??C (99.3 ??F) 05/18/2024 1:35 AM ED T Respiratory Rate 19 05/18/2024 1:35 AM EDT Oxygen Saturation 96% 05/18/2024 1:35 AM EDT Inhaled Oxygen Concentration - - Weight 126 kg (277 lb) 05/17/2024 8:31 PM EDT Height 170.2 cm (5' 7 ) 05/17/2024 8:31 PM EDT Body Mass Index 43.38 05/17/2024 8:31 PM EDT Plan of Treatment Upcoming Encounters Date Type Department Care Team (Late st Contact Info) Description 06/09/2024 3:30 PM EDT Consult Orthopedic Surgery - [place] [phone] [phone] Fabricio Gao, DPM [address] [phone] Health Maintenance Due Date Last Done Comments Diabetes: Annual Foot Exam 1984 Diabetes: Annual Retina Eye Exam 1984 Cervical Cancer Screening: Pap Smear 10/08/1995 Pneumococcal Vaccine: Pediatrics (0 to 5 Years) and At-Risk Patients (6 to 64 Years) (2 of 2 - PCV) 04/29/2007 04/28/2006 Breast Cancer Screening 06/22/2021 06/23/2019 Hepatitis A Vaccines (2 of 2 - Risk 2-dose series) 02/10/2022 08/10/2021 Colorectal Cancer Screening: Colonoscopy 10/06/2023 HIV Screening 10/06/2023 Hepatitis C Screening 10/06/2023 Social Influencers of Health Screening 10/06/2023 COVID-19 Vaccine ( season) 2023 Diabetes: Annual Urine Albumin-Creatinine Ratio (uACR) 04/05/2024 Diabetes: Blood Sugar Control Test (HGBA1C) 08/17/2024 02/18/2024, 04/26/2016 Influenza Vaccine (Season Ended) 2024 01/29/2022, 01/24/2006 Depression Screening 02/17/2025 02/18/2024 Diabetes: Annual GFR (Glomerular Filtration Rate) 05/17/2025 05/17/2024, 04/28/2024, 02/18/2024, Additional history exists Hypertension/CHF/CAD Annual BMP Blood Test 05/17/2025 05/17/2024, 04/28/2024, 02/18/2024, Additional history exists Cholesterol Screening (Lipid Panel) 02/17/2029 02/18/2024 DTaP,Tdap,and Td Vaccines (2 - Td or Tdap) 05/01/2032 05/01/2022 Hepatitis B Vaccines Completed 03/07/2023, 01/29/2022, 08/10/2021 HIB Vaccines Aged Out No longer eligi ble based on patient's age to complete this topic HPV Vaccines Aged Out No longer eligi ble based on patient's age to complete this topic IPV Vaccines Aged Out No longer eligi ble based on patient's age to complete this topic MMR Vaccines Aged Out No longer eligi ble based on patient's age to complete this topic Meningococcal ACWY Vaccine Aged Out N o longer eligible based on patient's age to complete this topic Meningococcal B Vaccine Aged Out No l onger eligible based on patient's age to complete this topic RSV Immunization Patients Under 20 months Aged Out No longer eligible based on patient's age to complete this topic Varicella Vaccines Aged Out No longer eligible based on patient's age to complete this topic Procedures Procedure Name Priority Date/Time Associated Diagnosis Comments CBC WITH AUTO DIFFERENTIAL STAT 05/17/2024 8:58 PM EDT LIPASE STAT 05/17/2024 8:58 PM EDT COMPREHENSIVE METABOLIC PANEL STAT 05/17/2024 8:58 PM EDT CBC AND DIFFERENTIAL STAT 05/17/2024 8:58 PM EDT POC , URINE DIAGNOSTIC STAT 05/17/2024 8:50 PM EDT UREÑA URINE CULTURE TUBE STAT 05/17/2024 8:47 PM EDT URINALYSIS WITH REFLEX MICROSCOPIC AND CULTURE STAT 05/17/2024 8:47 PM EDT URINALYSIS WITH REFLEX MICROSCOPIC AND CULTURE STAT 05/17/2024 8:47 PM EDT CULTURE URINE STAT 05/17/2024 8:47 PM EDT ECG ANNOTATED 04/30/2024 CT ABDOMEN PELVIS W CONTRAST STAT 04/29/2024 3:50 AM EDT XR CHEST 2 VIEWS STAT 04/29/2024 2:41 AM EDT US ABDOMEN LIMITED STAT 04/29/2024 1: 54 AM EDT ECG 12-LEAD STAT 04/29/2024 12:40 AM EDT TROPONIN I HIGH SENSITIVITY STAT 04/29/2024 12:21 AM EDT HCG, SERUM, QUALITATIVE STAT Add-on 04/28/2024 9:27 PM EDT CBC WITH AUTO DIFFERENTIAL STAT 04/28/2024 9:27 PM EDT B-TYPE NATRIURETIC PEPTIDE STAT 04/28/2024 9:27 PM EDT MAGNESIUM STAT 04/28/2024 9:27 PM EDT LIPASE STAT 04/28/2024 9:27 PM EDT COMPREHENSIVE METABOLIC PANEL STAT 04/28/2024 9:27 PM EDT CBC AND DIFFERENTIAL STAT 04/28/2024 9:27 PM EDT TROPONIN I HIGH SENSITIVITY STAT 04/28/2024 9:27 PM EDT ECG 12-LEAD STAT 04/28/2024 9:20 PM EDT from Last 3 Months Results * (ABNORMAL) CBC auto differential (05/17/2024 8:58 PM EDT) Only the most recent of2 resultswithin the time period is included. WBC 5.2 4.8 - 10.8 K/mcL LAB HEMETOLOGY METHOD 05/17/2024 9:41 PM EDT [facility] RBC 4.30 3.80 - 4.80 M/mcL LAB HEMETOLOGY METHOD 05/17/2024 9:41 PM EDT [facility] Hemoglobin 13.1 11.5 - 16.0 g/dL LAB HEMETOLOGY METHOD 05/17/2024 9:41 PM EDT [facility] Hematocrit 39.6 35.0 - 47.0 % LAB HEMETOLOGY METHOD 05/17/2024 9:41 PM EDT [facility] MCV 92.5 79.0 - 98.0 FL LAB HEMETOLOGY METHOD 05/17/2024 9:41 PM EDT [facility] MCH 30.6 27.0 - 32.0 pcg LAB HEMETOLOGY METHOD 05/17/2024 9:41 PM EDT [facility] MCHC 33.1 32.0 - 37.0 g/dL LAB HEMETOLOGY METHOD 05/17/2024 9:41 PM EDT [facility] RDW 15.7(H) 11.0 - 15.0 % LAB HEMETOLOGY METHOD 05/17/2024 9:41 PM [facility] Platelets 64(L) 130 - 400 K/mcL LAB HEMETOLOGY METHOD 05/17/2024 9:41 PM [facility] Comment:previously verified by slide MPV 11.1(H) 7.0 - 11.0 FL LAB HEMETOLOGY METHOD 05/17/2024 9:41 PM [facility] NRBC 0.0 <1.0 % LAB HEMETOLOGY METHOD 05/17/2024 9:41 PM [facility] NRBC Absolute 0.00 <0.10 K/mcL LAB HEMETOLOGY METHOD 05/17/2024 9:41 PM [facility] Neutrophils Relative 64.8 % LAB HEMETOLOGY METHOD 05/17/2024 9:41 PM [facility] Lymphocytes Relative 27.7 % LAB HEMETOLOGY METHOD 05/17/2024 9:41 PM [facility] Monocytes Relative 5.9 % LAB HEMETOLOGY METHOD 05/17/2024 9:41 PM [facility] Eosinophils Relative 0.8 % LAB HEMETOLOGY METHOD 05/17/2024 9:41 PM [facility] Basophils Relative 0.4 % LAB HEMETOLOGY METHOD 05/17/2024 9:41 PM [facility] Immature Granulocytes Relative 0.4 % LAB HEMETOLOGY METHOD 05/17/2024 9:41 PM [facility] Neutrophils Absolute 3.39 1.50 - 7.00 K/mcL LAB HEMETOLOGY METHOD 05/17/2024 9:41 PM [facility] Lymphocytes Absolute 1.45 1.00 - 5.00 K/mcL LAB HEMETOLOGY METHOD 05/17/2024 9:41 PM [facility] Monocytes Absolute 0.31 0.20 - 1.00 K/mcL LAB HEMETOLOGY METHOD 05/17/2024 9:41 PM EDT [facility] Eosinophils Absolute 0.04 0.00 - 0.50 K/[facility] LAB HEMETOLOGY METHOD 05/17/2024 9:41 PM EDT [facility] Basophils Absolute 0.02 0.00 - 0.20 K/[facility] LAB HEMETOLOGY METHOD 05/17/2024 9:41 PM EDT [facility] Immature Granulocytes Absolute 0.02 0.00 - 0.03 K/[facility] LAB HEMETOLOGY METHOD 05/17/2024 9:41 PM EDT [facility] Blood Venous blood specimen / Unknown Venipuncture / Unknown 05/17/2024 8:58 PM EDT 05/17/2024 9:06 PM EDT German Mittal MD LAB BLOOD ORDERABLES Final Result Performing Organization Address City/[facility]/ZIP Co de Phone Number [facility] [address] [place] [address], [place] [phone] * (ABNORMAL) Lipase (05/17/2024 8:58 PM EDT) Only the most recent of2 resultswithin the time period is included. Lipase 95(H) 13 - 75 unit/L LAB CHEMISTRY METHOD 05/17/2024 9:32 PM EDT [facility] Blood Venous blood specimen / Unknown Venipuncture / Unknown 05/17/2024 8:58 PM EDT 05/17/2024 9:05 PM EDT German Mittal MD LAB BLOOD ORDERABLES Final Result [facility] [address] [place] [address], [place] [phone] * (ABNORMAL) Comprehensive metabolic panel (05/17/2024 8:58 PM EDT) Only the most recent of2 resultswithin the time period is included. Sodium 140 133 - 145 mmol/L LAB CHEMISTRY METHOD 05/17/2024 9:32 PM [facility] Potassium 3.8 3.5 - 5.5 mmol/L LAB CHEMISTRY METHOD 05/17/2024 9:32 PM [facility] Chloride 108 96 - 110 mmol/L LAB CHEMISTRY METHOD 05/17/2024 9:32 PM [facility] CO2 25 21 - 32 mmol/L LAB CHEMISTRY METHOD 05/17/2024 9:32 PM [facility] Anion Gap 7 3 - 11 LAB CHEMISTRY METHOD 05/17/2024 9:32 PM [facility] Glucose 141(H) 70 - 100 mg/dL LAB CHEMISTRY METHOD 05/17/2024 9:32 PM [facility] BUN 10 5 - 25 mg/dL LAB CHEMISTRY METHOD 05/17/2024 9:32 PM [facility] Creatinine 1.23(H) 0.50 - 1.10 mg/dL LAB CHEMISTRY METHOD 05/17/2024 9:32 PM [facility] eGFR 54(L) >=60 mL/min/1. 73m2 LAB CHEMISTRY METHOD 05/17/2024 9:32 PM [facility] Comment:Calculation based on the??Chronic Kidney Disease Epidemiology Collaboration (CKD-EPI) equation refit??without adjustment for race. BUN/Creatinine Ratio 8.1 LAB CHEMISTRY METHOD 05/17/2024 9:32 PM [facility] Calcium 9.4 8.5 - 10.5 mg/dL LAB CHEMISTRY METHOD 05/17/2024 9:32 PM [facility] AST (SGOT) 35 10 - 42 unit/L LAB CHEMISTRY METHOD 05/17/2024 9:32 PM [facility] ALT (SGPT) 26 10 - 60 unit/L LAB CHEMISTRY METHOD 05/17/2024 9:32 PM EDT [facility] Alkaline Phosphatase 288(H) 42 - 121 unit/L LAB CHEMISTRY METHOD 05/17/2024 9:32 PM EDT [facility] Total Protein 7.9 6.0 - 8.0 g/dL LAB CHEMISTRY METHOD 05/17/2024 9:32 PM EDT [facility] Albumin 3.2 3.2 - 5.0 g/dL LAB CHEMISTRY METHOD 05/17/2024 9:32 PM EDT [facility] Total Bilirubin 1.2 0.0 - 1.4 mg/dL LAB CHEMISTRY METHOD 05/17/2024 9:32 PM EDT [facility] Blood Venous blood specimen / Unknown Venipuncture / Unknown 05/17/2024 8:58 PM EDT 05/17/2024 9:05 PM EDT German Mittal MD LAB BLOOD ORDERABLES Final Result [facility] [address] [place] [address], * POC , urine manually resulted (05/17/2024 8:50 PM EDT) HCG, Ur POC Negative Negative POC hCG Int QC Pass? Yes Yes Urine Urine specimen obtained by clean catch procedure / Unknown 05/17/2024 8:50 PM EDT German Mittal MD POINT OF CARE TEST ENTER/ED IT ORDERABLES Final Result * (ABNORMAL) Urinalysis with reflex microscopic and culture (05/17/2024 8:47 PM EDT) Pathologist [facility] Specific [place] Urine 1.017 1.003 - 1.030 LAB URINALYSIS - AUTOMATED METHOD 05/17/2024 9:32 PM EDT [facility] pH, Urine 7.0 5.0 - 8.0 pH LAB URINALYSIS - AUTOMATED METHOD 05/17/2024 9:32 PM [facility] Leukocytes, Urine Large(A) Negative LAB URINALYSIS - AUTOMATED METHOD 05/17/2024 9:32 PM [facility] Nitrite, Urine Positive(A) Negative LAB URINALYSIS - AUTOMATED METHOD 05/17/2024 9:32 PM [facility] Protein, Urine 100(A) <=Trace mg/dL LAB URINALYSIS - AUTOMATED METHOD 05/17/2024 9:32 PM [facility] Glucose, Urine Negative Negative mg/dL LAB URINALYSIS - AUTOMATED METHOD 05/17/2024 9:32 PM [facility] Ketones, Urine Negative Negative mg/dL LAB URINALYSIS - AUTOMATED METHOD 05/17/2024 9:32 PM [facility] Urobilinogen , Urine 2.0(A) 0.2 - 1.0 mg/dL LAB URINALYSIS - AUTOMATED METHOD 05/17/2024 9:32 PM [facility] Bilirubin, Urine Negative Negative LAB URINALYSIS - AUTOMATED METHOD 05/17/2024 9:32 PM [facility] Blood, Urine Small(A) Negative LAB URINALYSIS - AUTOMATED METHOD 05/17/2024 9:32 PM [facility] RBC, Urine 16.8(H) 0 - 4 /HPF LAB URINALYSIS - AUTOMATED METHOD 05/17/2024 9:32 PM [facility] WBC, Urine 293.0(H) 0 - 4 /HPF LAB URINALYSIS - AUTOMATED METHOD 05/17/2024 9:32 PM [facility] Squamous Epithelial, Urine 25 0 - 60 /LPF LAB URINALYSIS - AUTOMATED METHOD 05/17/2024 9:32 PM EDT [facility] Bacteria, Urine Many(A) Negative /HPF LAB URINALYSIS - AUTOMATED METHOD 05/17/2024 9:32 PM EDT [facility] Hyaline Casts, Urine 1.2 0 - 3 /LPF LAB URINALYSIS - AUTOMATED METHOD 05/17/2024 9:32 PM EDT [facility] Urine Urine specimen obtained by clean catch procedure / Unknown Non-blood Collection / Unknown 05/17/2024 8:47 PM EDT 05/17/2024 9:07 PM EDT German Mittal MD LAB URINE ORDERABLES Final Result Performing Organization Address City/[facility]/ZIP Co de Phone Number [facility] [address] [place] [address], [place] [phone] * Ureña urine culture tube (05/17/2024 8:47 PM EDT) Extra Tube Hold for add-ons. 05/17/2024 11:01 PM EDT [facility] Comment:Auto resulted. Urine Urine specimen obtained by clean catch procedure / Unknown Non-blood Collection / Unknown 05/17/2024 8:47 PM EDT 05/17/2024 9:07 PM EDT German Mittal MD LAB URINE ORDERABLES Final Result [facility] [address] [place] [address], [place] [phone] * Culture urine (05/17/2024 8:47 PM EDT) Culture, Urine >100,000 CFU/mL Mixed bacterial morphotypes present suggestive of possible contamination during collection. Suggest appropriate recollection if clinically indicated. 05/19/2024 10:43 AM EDT [facility] Urine Urine specimen obtained by clean catch procedure / Unknown Non-blood Collection / Unknown 05/17/2024 8:47 PM EDT 05/17/2024 9:32 PM EDT German Mittal MD LAB MICROBIOLOGY - GENERAL ORDERABLES Final Result [facility] [address] [place] [address], * ECG-Annotated (04/30/2024) Provider Onbase ECG ORDERABLES Final Result * CT Abdomen Pelvis w Contrast (04/29/2024 3:50 AM EDT) Anatomical Region Laterality Modality Body Computed Tomogra phy 04/29/2024 4:29 AM EDT Impressions 04/29/2024 4:29 AM EDT Small bowel wall thickening, which could be due to underdistention or enteritis. Nonemergent/incidental findings above. This document has been electronically signed by: Pro Little MD on 04/29/2024 04:29:35 Narrative 04/29/2024 4:29 AM EDT INDICATION: Nausea/vomiting CT Abdomen and Pelvis W Contrast COMPARISON: US/HI - US ABD LIMITED - 04/29/24 00:25 EDT FINDINGS: Detail limited by artifacts. Diffusely hypodense liver consistent with hepatic steatosis. Hepatomegaly. Nodular liver contours, consistent with hepatic cirrhosis. Splenomegaly. Bilateral renal scarring. No hydronephrosis. Normal adrenal glands. Normal pancreas. Status post cholecystectomy. No abnormal biliary dilation. No evidence of bowel obstruction. Thickening of the amaya of multiple loops of small bowel. No pneumatosis. Normal appendix. Unremarkable bladder. Unremarkable uterus. No ascites. No pneumoperitoneum. No lymphadenopathy. No acute fracture. Degenerative changes in the spine. No abdominal aortic aneurysm. Procedure Note Pro Little MD - 04/29/2024 INDICATION: Nausea/vomiting CT Abdomen and Pelvis W Contrast COMPARISON: US/HI - US ABD LIMITED - 04/29/24 00:25 EDT FINDINGS: Detail limited by artifacts. Diffusely hypodense liver consistent with hepatic steatosis.Hepatomegaly. Nodular liver contours, consistent with hepatic cirrhosis. Splenomegaly. Bilateral renal scarring. No hydronephrosis. Normal adrenal glands. Normal pancreas. Status post cholecystectomy. No abnormal biliary dilation. No evidence of bowel obstruction. Thickening of the amaya of multiple loops of small bowel. No pneumatosis. Normal appendix. Unremarkable bladder. Unremarkable uterus. No ascites. No pneumoperitoneum. No lymphadenopathy. No acute fracture. Degenerative changes in the spine. No abdominal aortic aneurysm. IMPRESSION: Small bowel wall thickening, which could be due to underdistention or enteritis. Nonemergent/incidental findings above. This document has been electronically signed by: Pro Little MD on 04/29/2024 04:29:[address] PROCEDURES Final Result * XR Chest 2 Views (04/29/2024 2:41 AM EDT) Anatomical Region Laterality Modality Body Radiographic Raya ging 04/29/2024 8:00 AM EDT Impressions 04/29/2024 8:01 AM EDT Normal examination. No change since the prior study performed 03/30/2023. Code 06488 -------- FINAL REPORT -------- Dictated By: Domingo Torres Dictated Date: 04/29/2024 08:00 ET Assigned Physician: Domingo Torres Reviewed and Electronically Signed By: Domingo Torres Signed Date: 04/29/2024 08:01 ET Workstation ID: [id number] Transcribed By: Self Edit Transcribed Date: 04/29/2024 08:00 ET Narrative 04/29/2024 8:01 AM EDT HISTORY: The patient is a 48-year-old female with chest pain. FINDINGS: PA and lateral radiographs of the chest demonstrate normal appearance of the bony structures. The cardiac and mediastinal contours are within normal limits. The lungs and costophrenic angles are clear. Procedure Note Domingo Torres MD - 04/29/2024 HISTORY: The patient is a 48-year-old female with chest pain. FINDINGS: PA and lateral radiographs of the chest demonstrate normalappearance of the bony structures. The cardiac and mediastinal contoursare within normal limits. The lungs and costophrenic angles are clear. IMPRESSION: Normal examination. No change since the prior study performed 03/30/2023. Code 16859 -------- FINAL REPORT -------- Dictated By: Domingo Torres Dictated Date: 04/29/2024 08:00 ET Assigned Physician: Domingo Torres Reviewed and Electronically Signed By: Domingo Torres Signed Date: 04/29/2024 08:01 ET Workstation ID: [id number] Transcribed By: Self Edit Transcribed Date: 04/29/2024 08:00 ET us Cr B Khoa YATES IMG XR PROCEDURES Final Result * US Abdomen Limited (04/29/2024 1:54 AM EDT) Anatomical Region Laterality Modality Body Ultrasound 04/29/2024 2:16 AM EDT Impressions 04/29/2024 2:16 AM EDT No acute findings. Status post cholecystectomy. Nonemergent/incidental findings above. This document has been electronically signed by: Pro Little MD on 04/29/2024 02:16:53 Narrative 04/29/2024 2:16 AM EDT INDICATION: Eval for gallbladder disease US Abdomen Limited, Right Upper Quadrant COMPARISON: None FINDINGS: Status post cholecystectomy. Negative sonographic Ahumada sign. No bile duct dilation. Common bile duct measures 7 mm in diameter. The visualized pancreas is unremarkable. Hepatomegaly. Heterogeneous liver echotexture. Mildly nodular liver contours suggestive of hepatic cirrhosis. Right kidney: 12.2 cm in length. No hydronephrosis. No visible urolithiasis. The visualized IVC is unremarkable. No ascites. Procedure Note Pro Little MD - 04/29/2024 INDICATION: Eval for gallbladder disease US Abdomen Limited, Right Upper Quadrant COMPARISON: None FINDINGS: Status post cholecystectomy. Negative sonographic Ahumada sign. No bile duct dilation. Common bile duct measures 7 mm in diameter. The visualized pancreas is unremarkable. Hepatomegaly. Heterogeneous liver echotexture. Mildly nodular liver contours suggestive of hepatic cirrhosis. Right kidney: 12.2 cm in length. No hydronephrosis. No visible urolithiasis. The visualized IVC is unremarkable. No ascites. IMPRESSION: No acute findings. Status post cholecystectomy. Nonemergent/incidental findings above. This document has been electronically signed by: Pro Little MD on 04/29/2024 02:16:53 us Renzo WHITMAN [facility] US PROCEDURES Final Result * ECG 12 lead (04/29/2024 12:40 AM EDT) Only the most recent of2 resultswithin the time period is included. Pathologist [facility] Ventricular Rate ECG 74 BPM GEMUSE Atrial Rate 74 BPM GEMUSE P-R Interval 156 ms GEMUSE QRS Duration 74 ms GEMUSE Q-T Interval 410 ms GEMUSE QTc 455 ms GEMUSE P Wave [place] 39 degrees GEMUSE R [place] -6 degrees GEMUSE T [place] 2 degrees GEMUSE ECG Interpretation Normal sinus rhythm Minimal voltage criteria for LVH, may be normal variant ( R in aVL ) Borderline ECG When compared with ECG of 28-APR-2024 21:20, (unconfirmed) Inverted T waves have replaced nonspecific T wave abnormality in Inferior leads Confirmed by Lena PEREZ JOHN ([id number]) on 04/29/2024 7:55:22 PM GEMUSE 04/29/2024 12:4 0 AM EDT 04/29/2024 7:55 PM EDT Cr Couch MD ECG ORDERABLES Final Result GEMUSE * Troponin I high sensitivity (04/29/2024 12:21 AM EDT) Only the most recent of2 resultswithin the time period is included. [facility] High Sensitivity Troponin I 3 <=54 ng/L LAB CHEMISTRY METHOD 04/29/2024 1:38 AM EDT [facility] Blood Venous blood specimen / Unknown Venipuncture / Unknown 04/29/2024 12:21 AM EDT 04/29/2024 1:12 AM EDT Narrative [facility] - 04/29/2024 1:38 AM EDT High levels of biotin in samples may falsely decrease hsTroponin values. ??Use caution when interpreting hsTroponin results in patients taking biotin who exhibit renal impairment (eGFR <60) or in patients taking more than 20 mg/day of biotin. us Cr Couch MD LAB BLOOD ORDERABLES Final Resu lt Performing Organization Address [facility] Co de Phone Number [facility] [address] [place] [address], * hCG Qualitative (04/28/2024 9:27 PM EDT) [facility] hCG Qual Negative Negative 04/29/2024 3:07 AM EDT [facility] Blood Venous blood specimen / Unknown Venipuncture / Unknown 04/28/2024 9:27 PM EDT 04/28/2024 9:44 PM EDT us Renzo WHITMAN LAB BLOOD ORDERABLES Final Resul t Performing Organization Address [facility] de Phone Number [facility] [address] [place] [address], [place] [phone] * B-type natriuretic peptide (04/28/2024 9:27 PM EDT) [facility] BNP 30 <=100 pcg/mL LAB CHEMISTRY METHOD 04/28/2024 10:21 PM EDT [facility] Blood Venous blood specimen / Unknown Venipuncture / Unknown 04/28/2024 9:27 PM EDT 04/28/2024 9:44 PM EDT us Cr Couch MD LAB BLOOD ORDERABLES Final Resu lt Performing Organization Address [facility] Co de Phone Number [facility] [address] [place] [address], * Magnesium (04/28/2024 9:27 PM EDT) Magnesium 2.0 1.9 - 2.6 mg/dL LAB CHEMISTRY METHOD 04/28/2024 10:13 PM EDT [facility] ([facility] [facility] Blood Venous blood specimen / Unknown Venipuncture / Unknown 04/28/2024 9:27 PM EDT 04/28/2024 9:44 PM EDT us Cr Zulema Couch MD LAB BLOOD ORDERABLES Final Resu lt [facility] ([facility] [address] [place] [address], [place] [phone] from Last 3 Months Insurance MEDICAID - [place] Care Teams Dental Manager Relationship Specialty Start Date End Date [facility] [address] [place] [phone] PCP - General Family Medicine 04/05/24
[2024-05-27 20:36] LABS: Anion Gap 14 (12-20); Carbon Dioxide 19 mmol/L (22-29); Chloride 110 mmol/L (96-108); Potassium 3.4 mmol/L (3.3-5.1); Sodium 140 mmol/L (135-145)
[2024-05-27 21:25] LABS: Appearance Urine Clear; Color Urine Yellow; Glucose Urine UA Negative (Negative); Leukocyte Esterase Urine Negative (Negative); Nitrite Urine Negative (Negative); PH 6.5 (5.0-9.0); UMIC TRIGGER UACC YES; Urine Blood Negative (Negative); Urine Ketones Negative (Negative); Urine Protein 100 (2+) mg/dL (Neg-Trace)
[2024-05-27 21:30] LABS: Bacteria Urine Trace (None Seen); Hyaline Casts Urine 0-2 /LPF (0-2); RBC Urine 0-2 /HPF (0-2); UACC Culture Trigger YES
[2024-05-27] MEDS: ondansetron HCL 4 MG/2 ML VIAL IVPUSH (22:18)
[2024-05-27 22:19] VITALS: RESP 16
[2024-05-27] MEDS: Morphine Sulfate 4 MG/ML CARTRIDGE IVPUSH ×2 (22:19→23:31)
[2024-05-27] MEDS: iohexoL 350 MG/ML 100 ML INFUS..BTL 85 ML IV (22:33)
--- NOTE | 2024-05-27 23:16 | PC.NURSE ---
pt back from ct and waiting results, pain to lower abd not relieved with morphine.
[2024-05-27 23:17] VITALS: BP 122/54; PULSE 79; RESP 16; TEMP 36.9
[2024-05-27 23:21] VITALS: BP 122/54; PULSE 79; RESP 16; TEMP 36.9; O2SAT 98
[2024-05-27 23:31] VITALS: RESP 16
[2024-05-28 00:09] VITALS: BP 113/57; PULSE 82; RESP 16; TEMP 36.8
[2024-05-28] MEDS: Dicyclomine HCl 10 MG CAPSULE 20 MG PO (00:27)
[2024-05-28 01:03] VITALS: BP 113/57; PULSE 82; RESP 16; TEMP 36.8; O2SAT 98
== END 2024-05-28 01:04 | disposition home or self-care (01) ==
PROVIDERS: Registered Nurse Emergency; Emergency Provider Emergency Medicine; PCP Registered Nurse
DX: G89.29 Other chronic pain (principal); R10.32 Left lower quadrant pain; R11.2 Nausea with vomiting, unspecified; E11.9 Type 2 diabetes mellitus without complications; F17.210 Nicotine dependence, cigarettes, uncomplicated; Z79.84 Long term (current) use of oral hypoglycemic drugs; Z79.899 Other long term (current) drug therapy
CPT/HCPCS: 36415; 74177; 80053; 81001; 83690; 85025; 85610; 87086; 96374; 96375; 96376; 99283; 99284; J2270; J2405; Q9967

== ENCOUNTER → 2024-05-27 21:29 | Outpatient (BNV) | payer MEDICAID, SELFPAY | PROVIDERS: Emergency Provider Emergency Medicine; PCP Registered Nurse; Visit Provider General Practice | DX: R10.9 Unspecified abdominal pain (principal) | CPT/HCPCS: 74177 ==

== ENCOUNTER 2024-06-16 18:01 | Outpatient (REF) | payer MEDICAID, SELFPAY ==
--- OUTSIDE RECORDS SUMMARY | 2024-06-16 18:03 | XMS_ITS | Encounter Summary ---
Author Organization [employer] Address [address] [facility] 7t [place] [address] Care Team Providers Care Financial Developer Name Role Phone Jen Sousa [facility] Primary Care Provider [phone] Angelique Bolaños [employer] Primary Care Provider [phone] Vera Mcgovern PharmD Unavailable [phone] Encounter Details Date Type Department Care Team (Late Contact Info) Description 06/27/2022 Telephone [facility] MEDICINE [address] [place] [address] [phone] Ghada King, TERE Social History Tobacco Use [...] Care Team (Late st Contact Info) Description 06/24/2024 3:30 PM EDT Office Visit [facility] OPTOM[facility] [address] [place], [place] [phone] Anaid Núñez, OD [address] [place], [place] [phone] 07/15/2024 11:30 AM EDT Medication Management [facility] [address] [place] [address] [phone] Sophie Zapata, JessicaD [address] [place] [address] documented as of this encounter Visit Diagnoses Not on filedocumented in this encounter Care Teams Financial Developer Relationship Specialty Start Date End Date Jen Sousa FNP [address] [place] [address] PCP - General Family Medicine 10/04/21 11/07/22 [place] F[place] [address] [place] [phone] PCP - General Family Medicine 11/08/22 Vera Mcgovern, JessicaD [address] [place] [phone] Pharmacist Internal Medicine 08/20/23 documented as of this encounter
--- OUTSIDE RECORDS SUMMARY | 2024-06-16 18:03 | XMS_ITS | Encounter Summary ---
Author Organization [employer] Address [address] [facility] 7[address] [place] [address] Care Team Providers Care Spray Blender Name Role Phone Jen Sousa [facility] Primary Care Provider [phone] [place] [facility]ong [employer] Primary Care Provider [phone] Vera Mcgovern PharmD Unavailable [phone] Encounter Details Date Type Department Care Team (Late Contact Info) Description 07/01/2022 Orders Only [facility] [address] [place] [address] Rody Campbell LPN Social History Tobacco Use [...] Department Care Team (Late Contact Info) Description 06/24/2024 3:30 PM EDT Office Visit [facility] [address] [place], [place] [phone] Anaid Núñez, OD [address] [place] [address] 07/15/2024 11:30 AM EDT Medication Management [facility] [address] [place], [place] [phone] Sophie Zapata, Maddy [address] [place] [address] documented as of this encounter Visit Diagnoses Not on filedocumented in this encounter Care Teams Spray Blender Relationship Specialty Start Date End Date Jen Sousa FNP [address] [place] [address] PCP - General Family Medicine 10/04/21 11/07/22 [place] FNP [address] [place] [phone] PCP - General Family Medicine 11/08/22 Vera Mcgovern, JessicaD [address] [place] [phone] Pharmacist Internal Medicine 08/20/23 documented as of this encounter
--- OUTSIDE RECORDS SUMMARY | 2024-06-16 18:04 | XMS_ITS | Encounter Summary ---
Author Organization [employer] Address [address] [facility] 7[address] [place] [address] Care Team Providers Care Shuttlecock Assembler Name Role Phone Mami [facility] Primary Care Provider [phone] Vera Mcgovern PharmD Unavailable [phone] Reason for Visit * Reason Onset Date Comments Nurse Triage 04/15/2023 Encounter Details Date Type Department Care Team ([facility] st Contact Info) Description 04/15/[address] [facility] MEDICINE [address] [place], [place] [phone] [place], [facility] [address] [place] [address] Nurse Triage Social History Tobacco Use Types [...] of disposition with rationale. Pt agrees to [facility] ER now for exam . Sent [...] Description 06/24/2024 3:30 PM EDT Office Visit [facility] OPTOMETRY [address] [place], [place] [phone] [place]ton Anaid, OD [address] [place] [address] 07/15/2024 11:30 AM EDT Medication Management [facility] MEDICINE [address] [place] [address] Sophie Zapata, JessicaD [address] [place] [address] documented as of this encounter Visit Diagnoses Not on filedocumented in this encounter Additional Health Concerns Assessment Noted Time PHQ-9 Depression Total Score: 17 024 12:52 PM EST documented as of this encounter Care Teams Shuttlecock Assembler Relationship Specialty Start Date End Date Angelique Bolaños FNP [address] [place] [phone] PCP - General Family Medicine 11/08/22 Vera Mcgovern, JessicaD [address] [place] [address] [phone] Pharmacist Internal Medicine 08/20/23 documented as of this encounter
--- OUTSIDE RECORDS SUMMARY | 2024-06-16 18:04 | XMS_ITS | Clinical Summary ---
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 albuterol 108 (90 Base) MCG/ACT inhaler Inhale 2 puffs every 4 (four) hours. Active naloxone (Narcan) 4 mg/0.1 mL nasal spray Administer 0.1 mL into affected nostril(s). Active Blood Pressure kitIndications:O ther cirrhosis of liver (CMS/HCC),Spleno megaly Use as directed 1 kit 024 Active glucose blood (FreeStyle Precision Ketan Test) test stripIndications :Type 2 diabetes mellitus with hyperglycemia, with long-term current use of insulin (CMS/HCC) Test blood sugar 4 times daily 100 each 11 024 2024 Active ferrous sulfate (FeroSul) 325 (65 Fe) MG tabletIndication s:Disease of liver TAKE 1 TABLET BY MOUTH EVERY OTHER DAY IN THE MORNING 45 tablet 3 024 Active prazosin (Minipress) 2 MG capsuleIndicatio ns:Major depressive disorder, remission status unspecified, unspecified whether recurrent TAKE 1 CAPSULE BY MOUTH EVERY EVENING 90 capsule 3 024 Active TRUEplus Lancets 33G miscIndications: Type 2 diabetes mellitus with other specified complication ([facility]) USE DIRECTED TO TEST BLOOD SUGAR FOUR TIMES DAILY 100 each 5 024 Active pregabalin (Lyrica) 300 MG capsule TAKE 1 CAPSULE BY MOUTH TWICE DAILY IN THE MORNING AND IN THE EVENING 60 capsule 5 024 Active cyclobenzaprine (Flexeril) 5 MG tabletIndication s:Muscle spasm Take 1 tablet (5 mg) by mouth if needed in the morning, at noon, and at bedtime for muscle spasms. 30 tablet 2 025 Active Continuous Glucose Sensor (FreeStyle Bri 2 Sensor) miscIndications: Type 2 diabetes mellitus with hyperglycemia, with long-term current use of insulin ([facility]) Apply 1 sensor every 14 days 2 each 3 025 Active budesonide-formo terol (Symbicort) 80-4.5 MCG/ACT inhalerIndicatio ns:Asthma, unspecified asthma severity, unspecified whether complicated, unspecified whether persistent INHALE 2 PUFFS BY MOUTH TWICE DAILY IN THE MORNING AND AT BEDTIME. MAY ALSO USE FOR SHORTNESS OF BREATH. RINSE MOUTH AFTER USING. 10.2 g 025 Active pantoprazole (ProtoNix) 40 MG EC tablet TAKE 1 TABLET BY MOUTH EVERY MORNING ON AN EMPTY STOMACH 90 tablet 3 025 Active rosuvastatin (Crestor) 40 MG tabletIndication s:Other hyperlipidemia TAKE 1 TABLET BY MOUTH AT BEDTIME 90 tablet 3 025 Active insulin pen needle (RgtiGuard SafePack Pen Needle) 32G x 4 mm miscIndications: Type 2 diabetes mellitus with hyperglycemia, with long-term current use of insulin ([facility]) Use as instructed 100 each 6 025 Active hydrocortisone (Anusol-HC) 2.5 % rectal creamIndications :Hemorrhoids, unspecified hemorrhoid type INSERT INTO THE RECTUM TWICE A DAY 20 g 025 Active Alcohol Swabs (Alcohol Prep) 70 % padsIndications: Type 2 diabetes mellitus with other specified complication, with long-term current use of insulin ([facility]) USE 1 TO CLEAN SKIN BEFORE INJECTION DIRECTED 100 each 11 025 Active busPIRone (Buspar) 10 MG tabletIndication s:Anxiety TAKE 1 TABLET BY MOUTH THREE TIMES DAILY IN THE MORNING, EVENING, AND BEDTIME FOR ANXIETY 90 tablet 11 025 Active DULoxetine (Cymbalta) [address] Simpson ns:Chronic bilateral low back pain, unspecified whether sciatica present TAKE 1 CAPSULE BY MOUTH EVERY MORNING 30 capsule 1 025 Active ibuprofen 600 MG tablet Take 600 mg by mouth every 8 (eight) hours if needed. Active spironolactone (Aldactone) 25 MG tablet Take 25 mg by mouth Once per day. 025 2025 Active FREESTYLE LITE test strip Use as instructed four times a day 100 each 12 Active Blood Glucose Monitoring Suppl (ONE TOUCH ULTRA 2) w/Device kitIndications:T ype 2 diabetes mellitus with other specified complication, with long-term current use of insulin ([facility]) USE TO TEST BLOOD SUGAR FOUR TIMES DAILY 1 kit Active glucose blood (OneTouch Ultra) test stripIndications :Type 2 diabetes mellitus with other specified complication, with long-term current use of insulin (CMS/[facility]) USE TO TEST BLOOD SUGAR FOUR TIMES DAILY 100 each 3 Active OneTouch Delica Lancets 33G miscIndications: Type 2 diabetes mellitus with other specified complication, with long-term current use of insulin (CMS/[facility]) USE TO TEST BLOOD SUGAR FOUR TIMES DAILY 100 each 5 Active insulin degludec (Tresiba FlexTouch) 200 UNIT/ML injectionIndicat ions:Type 2 diabetes mellitus with other specified complication, with long-term current use of insulin (CMS/[facility]) Inject 36 Units under the skin at bedtime. 3 mL Active Continuous Glucose Washer Assembler (FreeStyle Bri 3 [place]) deviceIndication s:Type 2 diabetes mellitus with hyperglycemia, with long-term current use of insulin (CMS/HCC) 1 each 4 times daily. 1 each Active FREESTYLE LITE test stripIndications :Type 2 diabetes mellitus with hyperglycemia, with long-term current use of insulin (CMS/[facility]) Use to test blood sugar 3 times daily 100 each 12 025 2025 Active Lancets miscIndications: Type 2 diabetes mellitus with hyperglycemia, with long-term current use of insulin ([facility]) Use to test blood sugar 3 times daily 100 each 025 Active Alcohol Swabs 70 % padsIndications: Type 2 diabetes mellitus with hyperglycemia, with long-term current use of insulin ([facility]) Use to test blood sugar 3 times daily 100 each 025 Active Blood Glucose Monitoring Suppl (FreeStyle [place] Lite) w/Device kitIndications:T ype 2 diabetes mellitus with hyperglycemia, with long-term current use of insulin ([facility]) Use to test blood sugar 3 times daily 1 kit 025 Active lidocaine (Lidoderm) 5 % patchIndications :Chronic pain of right knee Apply 1 patch topically Once per day. Remove & discard patch within 12 hours or as directed by MD. 30 patch 1 025 Active nitrofurantoin, macrocrystal-mon ohydrate, (Macrobid) 100 MG capsuleIndicatio ns:Urinary tract infection without hematuria, site unspecified Take 1 capsule (100 mg) by mouth 2 times daily for 7 days. 14 capsule 025 2024 Active Blood Glucose Monitoring Suppl (FreeStyle Lite) w/Device kit 1 each 3 times daily. 1 kit 023 2024 Discontinued(R eorder (will not trigger notification to Pharmacy)) FREESTYLE LITE test strip Use as instructed 100 each 12 023 2024 Discontinued(R eorder (will not trigger notification to Pharmacy)) Acetaminophen Extra Strength 500 MG tablet TAKE 1 TABLET BY MOUTH TWICE DAILY IN THE MORNING AND AT BEDTIME NEEDED FOR MILD PAIN 60 tablet 1 024 2024 Discontinued(M ed list cleanup (will not trigger notification to Pharmacy)) Continuous Glucose Washer Assembler (FreeStyle Bri 3 [place]) deviceIndication s:Type 2 diabetes mellitus with hyperglycemia, with long-term current use of insulin ([facility]) 1 each 4 times daily. 1 each 024 2024 Discontinued(R eorder (will not trigger notification to Pharmacy)) Dulaglutide (Trulicity) 4.5 MG/0.5ML solution auto-injectorInd ications:Type 2 diabetes mellitus with hyperglycemia, with long-term current use of insulin ([facility]) Inject 4.5 mg under the skin 1 (one) time per week. 2 mL 3 025 2024 Discontinued(M ed list cleanup (will not trigger notification to Pharmacy)) potassium chloride CR (K-Tab) 20 MEQ ER tabletIndication s:Hypokalemia Take 1 tablet (20 mEq) by mouth 2 times daily. Do not crush, chew, or split. 14 tablet 025 2024 Discontinued(M ed list cleanup (will not trigger notification to Pharmacy)) metFORMIN XR (Glucophage-XR) 500 MG 24 hr tabletIndication s:Type 2 diabetes mellitus with hyperglycemia, with long-term current use of insulin ([facility]) TAKE 2 TABLETS BY MOUTH TWICE DAILY IN THE MORNING AND EVENING 360 tablet 3 2024 Discontinued(M ed list cleanup (will not trigger notification to Pharmacy)) lisinopril 2.5 MG tablet Take 2.5 mg by mouth in the morning. 025 2024 Discontinued propranolol (Inderal) 10 MG tabletIndication s:Other cirrhosis of liver ([facility]) Take 1 tablet (10 mg) by mouth Once per day. 30 tablet 11 025 2024 Discontinued(S top taking at discharge) insulin degludec (Tresiba FlexTouch) 200 UNIT/ML injectionIndicat ions:Type 2 diabetes mellitus with hypoglycemia without coma, with long-term current use of insulin ([facility]),Type 2 diabetes mellitus with hyperglycemia, with long-term current use of insulin ([facility]) INJECT 40 UNITS SUBCUTANEOUSLY TWICE DAILY DIRECTED 9 mL 2 025 2024 Discontinued(M ed list cleanup (will not trigger notification to Pharmacy)) lisinopril 2.5 MG tabletIndication s:Essential (primary) hypertension TAKE 1 TABLET BY MOUTH EVERY MORNING 90 tablet 1 025 2024 Discontinued(M ed list cleanup (will not trigger notification to Pharmacy)) Blood Glucose Monitoring Suppl (Innovasic SemiconductorStyle Lite) w/Device kit 1 each 4 times daily. 1 kit 04/18/2 025 2024 Discontinued insulin degludec (Tresiba FlexTouch) 200 UNIT/ML injection Inject 30 Units under the skin at bedtime. 2024 Discontinued(R eorder (will not trigger notification to Pharmacy)) Active Problems Patient Care Coordination No te Formatting of this note migh t be different from the original. C3/CM Alexus Goins RN Problem Noted Date Diagnosed Date Depression with anxiety 06/16/2024 Assessment & Plan (06/16/2024 1:44 PM EDT): Extensive counseling done [facility]N was called we will follow recommendations Chronic pain of right knee 06/16/2024 Assessment & Plan (06/16/2024 1:41 PM EDT): XRAY ordered patient will be contacted with results Meanwhile elevate knee, apply ice and rest Lidocaine patch can be applied locally UTI (urinary tract infection) 06/16/2024 Recurrent UTI 06/16/2024 Assessment & Plan (06/16/2024 1:40 PM EDT): In light of recurrent UTIs I referred patient to urology Pyuria 05/19/2024 Assessment & Plan (05/19/2024 3:27 PM EDT): Seen at [facility] ED 05/17/24 for lower abdominal and left flank pain. Labs with urine culture showing 293 WBC. Presents today hemodynamically stable, but ill-appearing and in mild distress. Will send via ambulance to [facility] ED for further evaluation. Continuous severe abdominal pain 05/19/2024 Assessment & Plan (05/19/2024 3:26 PM EDT): Left flank pain, RUQ pain on exam. + CVA tenderness. Given pyuria and acute kidney injury on labs from [facility] ED visit 05/17/24, suspect possible acute pyelonephritis. Presents today hemodynamically stable, but ill-appearing and in mild distress. Will send via ambulance to [facility] ED for further evaluation. Acute flank pain 05/19/2024 Assessment & Plan (05/19/2024 3:26 PM EDT): Left flank pain on exam. + CVA tenderness. Given pyuria and acute kidney injury on labs from [facility] ED visit 05/17/24, suspect possible acute pyelonephritis. Presents today hemodynamically stable, but ill-appearing and in mild distress. Will send via ambulance to [facility] ED for further evaluation. Thrombocytopenia 05/19/2024 Assessment & Plan (05/19/2024 3:29 PM EDT): Like acute on chronic, worsening due to underlying bacterial infection. Pt was seen at [facility] ED 05/17/24 for lower abdominal and left flank pain. Labs showing platelets of 64. Presents today hemodynamically stable, but ill-appearing and in mild distress. Will send via ambulance to [facility] ED for further evaluation. Elevated lipase 05/19/2024 Assessment & Plan (05/19/2024 3:29 PM EDT): Pt was seen at [facility] ED 05/17/24 for lower abdominal and left flank pain. Labs showing lipase of 95. Presents today hemodynamically stable, but ill-appearing and in mild distress. Will send via ambulance to [facility] ED for further evaluation. Acute kidney injury 05/19/2024 Assessment & Plan (05/19/2024 3:27 PM EDT): Seen at [facility] ED 05/17/24 for lower abdominal and left flank pain. Labs with creatinine of 1.23. Presents today hemodynamically stable, but ill-appearing and in mild distress. Will send via ambulance to [facility] ED for further evaluation. Folliculitis [...] refer patient for OP individual therapy. Provided [facility] contact information for sooner appointments. Provided psychoeducation around chronic pain and depression. At this time Billie Martínez meets criteria for Visit Diagnoses: Problem List Items Addressed This Visit Other Chronic low back pain Major depressive disorder Anxiety Stress-related problem Patient ready to address current needs Yes Strengths include readiness to change PLAN: 1. Follow up with [facility]: Not recommended for follow-up 2. Patient goal [...] refer patient for OP individual therapy. Provided [facility] contact information for sooner appointments. Provided psychoeducation around chronic pain and depression. At this time Billie Martínez meets criteria for Visit Diagnoses: Problem List Items Addressed This Visit Other Chronic low back pain Major depressive disorder Anxiety Stress-related problem Patient ready to address current needs Yes Strengths include readiness to change PLAN: 1. Follow up with [facility]: Not recommended for follow-up 2. Patient goal [...] and have assistance managing care. Referral to CM placed. Case management team, please with the following: ?? CPAP (DME generated 12/05/21, pt reports she still has not heard) ?? [facility] Pain Management - due to schedule follow up appt ?? 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 11/2021-sleep study [facility] with moderate CIPRIANO Assessment & Plan (12/16/2022 4:27 PM EST): ?? Located sleep study report from 11/2021 ?? Message sent to DME specialist to initiate CPAP Assessment & Plan (05/21/2022 6:08 PM EDT): -DME request generated 12/05/21 -Pt reports still pending Chronic low back pain 01/19/2022 Overview (12/13/2022): Previously followed by [facility] pain mngmt. Lost to follow up. Rx'd tramadol by previous PCP which was discontinued due to lack of compliance with MECHANICAL DRAFTER agreement. Pt reports widespread chronic pain. Found tramadol minimally helpful. Hx of PT without improvement. Assessment & Plan (01/20/2024 8:11 PM EST): Take tylenol prn, had a recent fall. Rx bath tub bench + hand held shower. 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 FU with PCP Assessment & Plan (01/30/2022 6:52 PM EST): -Previously following with [facility] Pain management, last consult note available from Mar 2021 -Plan to review MRI findings and discuss tx plan -Pt reports was not able to make follow up appt due to difficulties with transportation -Will request [place] assist with arranging PT1 services, referral to SDOH team if needed -Encourage pt to call [facility] Pain management to reschedule appt, call if in need of new referral (pt seen less than 1 year ago). Other cirrhosis of liver 01/19/2022 Overview (02/19/2024): - Followed by [facility] - Abdominal ultrasound 02/14/23 w/ enlarged fatty liver with notable splenomegaly. - Abdomen CT 09/2023-cirrhosis with splenomegaly MELD score = 8 Thrombocytopenia (89,000) AFP negative (02/2023) - Unable to tolerate lasix (hypokalemia, hypotension) Assessment & Plan (06/16/2024 1:39 PM EDT): Hepatic panel ordered for monitoring and reassess if statin will be started again or not Continue to follow with specialist Assessment & Plan (03/14/2023 2:01 PM EST): [...] recent CBC ?? Will re-submit referral to [facility] ?? Emphasized importance of completing referral ?? ED precautions reviewed ?? Liver enzymes 11/06/22 with mild elevation Lab Results Component Value Date ALT 22 11/06/2022 AST 38 (H) 11/06/2022 Assessment & Plan (05/21/2022 6:09 PM EDT): -Pt previously referred to [facility] but was unable to make appt due to transportation barriers -Printed out referral placed earlier this year to [facility] for pt to call to reschedule -Believe pt is already established with PT-1 visits for [facility], but will request to confirm -Re-started Hep B series Assessment & Plan (01/30/2022 6:56 PM EST): -Pt previously referred to [facility] but was unable to make appt due to transportation barriers -Printed out referral placed earlier this year to [facility] for pt to call to reschedule -Believe pt is already established with PT-1 visits for [facility], but will request to confirm -Hep [...] post prandial goal: <180 Assessment & Plan (06/16/2024 1:43 PM EDT): Diabetes is: not controlled but improved - Lab Results Component Value Date HGBA1C 8.1 (A) 06/16/2024 HGBA1C 12.1 (A) 02/18/2024 HGBA1C 13.8 (A) 05/02/2023 - Lab Results Component Value Date MICROALBUR 43.0 09/18/2023 CREATININE 0.96 05/27/2024 -Changes: I went up j carlosi on her long acting insulin to 36U at bed time I will refer this patient to pharmacy CDTM for further adjustment of her insulin, I prescribed CGM reader and I also prescribe a regular glucometer so if there is any problem she will have something to test her glucose Assessment & Plan (03/14/2023 1:58 PM EST): [...] ?? Pt missed iniital phone call from [facility] DM educator-will request they reach out again ?? Emphasized importance of regular BS monitoring with insulin use and risks of hypoglycemia Assessment & Plan (03/25/2022 9:32 AM EST): -Continue with insulin degludec 45 units BID -Continue with lispro 5 units TID AC -Will request DME request for CGM through [facility] Diabetes RN -Recheck A1c at follow up appt -ED precautions reviewed Assessment & Plan (01/30/2022 6:54 PM EST): -Continue with insulin degludec 45 units BID -Continue with lispro 5 units TID AC -Will request DME request for CGM through [facility] Diabetes RN -Recheck A1c at follow up appt -ED precautions reviewed Polypharmacy 01/19/2022 Overview (01/19/2022): Per previous EHR Major depressive disorder 02/02/2020 Overview (12/13/2022): ?? Duloxetine ?? Buspirone Assessment & Plan (12/16/2022 3:49 PM EST): ?? Referred for OP therapy 12/09/22 ?? Continue current rx as prescribed ?? Contact HC if sx worsen or experiencing thoughts of SI or self harm. Pt has N crisis contact information Assessment & Plan (12/09/2022 9:44 AM EDT): Patient with chronic back pain and symptoms of depression and anxiety. Reason for visit was to assess symptoms, provide intervention/support and offer referral. No risk for SI or self-harm. Severe pain, sense of isolation and severe depression are exacerbating symptoms. Plan is to refer patient for OP individual therapy. Provided [facility] contact information for sooner appointments. Provided psychoeducation around chronic pain and depression. At this time Billie Martínez meets criteria for Visit Diagnoses: Problem List Items Addressed This Visit Other Chronic low back pain Major depressive disorder Anxiety Stress-related problem Patient ready to address current needs Yes Strengths include readiness to change PLAN: 1. Follow up with [facility]: Not recommended for follow-up 2. Patient goal [...] assistance managing care. Referral to placed. Encounters * This document contains information received from the source organization and may not represent a complete record from that organization. Date Type Department Care Team Description 06/16/2024 9:30 AM EDT Office Visit [facility] [address] [place] [id number] Bernadine Rodriguez MD Type 2 diabetes mellitus with other specified complication, with long-term current use of insulin (CMS/HCC) (Primary Dx); Thrombocytopenia (CMS/HCC); Other cirrhosis of liver (CMS/HCC); Depression with anxiety; Type 2 diabetes mellitus with hyperglycemia, with long-term current use of insulin ([facility]); Chronic pain of right knee; Urinary tract infection without hematuria, site unspecified; Recurrent UTI 06/16/2024 Travel 06/15/[address] [address] Bernadine Rodriguez MD Chart Prep 06/10/2024 Patient Outreach [facility] [address] [place] [id number] [facility] Care Coordination 06/10/2024 Patient Outreach [address] [address] [facility] 06/08/[address] [address] [facility] 06/04/[address] [address] Gretchen Romano MD Type 2 diabetes mellitus with hypoglycemia without coma, with long-term current use of insulin ([facility]); Type 2 diabetes mellitus with hyperglycemia, with long-term current use of insulin ([facility]) 06/03/2024 Telephone [facility] [address] [place] [id number] [facility] Chart prep 06/01/[address] [address] [facility] 06/01/2024 Patient Outreach [facility] [address] [place] [address] Angelique Bolaños FNP Care Coordination ([facility] outreach for SDOH PT-1 - LVM ) 06/01/2024 Telephone [facility] [address] [place] [address] Angelique Bolaños FNP Add address 06/01/2024 Telephone [facility] [address] [place] [address] [place]ique FNP Pt1 05/28/2024 Refill [facility] [address] [place] [address] MamiAngelique chong FNP Type 2 diabetes mellitus with other specified complication, with long-term current use of insulin ([facility]) 05/27/2024 Orders Only GENERIC EXTERNAL DATA DEPARTMENT Provider, Generic External Data 05/27/2024 Refill [facility] [address] [place] [address] Janeth Fu, PharmD 05/27/2024 Telephone [facility] [address] [place] [address] Angelique Bolaños FNP Nurse Triage 05/27/2024 Patient Outreach [facility] [address] [place] [address] Angelique Bolaños FNP Care Coordination 05/27/2024 Telephone [facility] [address] [place] [address] Janeth Fu, PharmD 05/25/2024 Patient Outreach [facility] [address] [place] [address] Angelique Bolaños FNP Transition Of Care (Tcm) (HDF scheduled.) 05/24/2024 Patient Outreach [facility] [address] [place] [address] Angelique Bolaños FNP Transition Of Care (Tcm) (HDF unscheduled.) 05/24/2024 Telephone [facility] [address] [place] [address] Angelique Bolaños FNP Hospital Follow-up 05/24/2024 Travel 05/20/2024 Outside Procedure [facility] [address] [place] [address] Anaid Núñez, OD Presbyopia (Primary Dx) 05/20/2024 Refill [facility] [address] [place] [address] Angelique Bolaños FNP Essential (primary) hypertension 05/19/2024 3:00 PM EDT Office Visit [facility] [address] [place] [address] Gretchen Romano MD Pyuria (Primary Dx); Continuous severe abdominal pain; Acute flank pain; Thrombocytopenia (CMS/HCC); Elevated lipase; Acute kidney injury (CMS/HCC) 05/19/2024 2:30 PM EDT Office Visit [facility] [address] [place] [address] Anaid Núñez, OD Severe myopia of both eyes (Primary Dx) 05/19/2024 Orders Only GENERIC EXTERNAL DATA DEPARTMENT Provider, Generic External Data 05/19/2024 Travel 05/19/2024 Telephone [facility] [address] [place] [address] Angelique Bolaños FNP Uber 05/18/2024 Patient Outreach [address] [address] Angelique Bolaños FNP 05/17/[address] [address] Angelique Bolaños MAPPING SPECIALIST Nurse Triage 05/14/2024 Patient Outreach [address] [address] Angelique Bolaños FNP 05/14/2024 Patient Outreach [address] [address] Angelique Bolaños FNP Care Management ([facility]- Initial assessment/enrollmen t) 05/13/2024 Patient Outreach [address] [address] Angelique Bolaños FNP 05/13/2024 Patient Outreach [address] [address] Angelique Bolaños FNP Care Coordination 05/13/2024 Patient Outreach [address] [address] Angelique Bolaños FNP Care Coordination ([facility] Lauren Licea telephone call outreach) 05/11/2024 Telephone [facility] [address] [facility] [place] [address] Angelique Bolaños FNP Prior Authorization 05/10/2024 Refill [facility] [address] [facility] [place] [address] Angelique Bolaños FNP Other cirrhosis of liver ([facility]/HCC); Type 2 diabetes mellitus with hypoglycemia without coma, with long-term current use of insulin ([facility]/HCC); Type 2 diabetes mellitus with hyperglycemia, with long-term current use of insulin ([facility]) 04/30/2024 Telephone [facility] [address] [facility] [place] [address] Wilton Anaid, OD 04/29/2024 Patient Outreach [facility] [address] [place] [address] Angelique Bolaños FNP Care Coordination ([facility] Lauren Licea chart review/) 04/29/2024 Patient Outreach [facility] [address] [facility] [place] [address] Angelique Bolaños FNP 04/29/2024 Patient Outreach [facility] [address] [facility] [place] [address] Angelique Bolaños FNP Care Coordination ([facility]- chart review) 04/29/2024 Patient Outreach [facility] [address] [place] [address] Aneglique Bolaños FNP 04/26/2024 Telephone [facility] [address] [facility] [place] [address] Angelique Bolaños FNP Nurse Triage 04/23/2024 Population Health Risk Score [facility] [address] [place] [phone] Provider, Population Health Generic 04/18/2024 Refill [facility] [address] [facility] [place] [address] Angelique Bolaños FNP Chronic bilateral low back pain, unspecified whether sciatica present 04/05/2024 Orders Only [facility] [address] [place] [address] Lisha Maxwell MD Type 2 diabetes mellitus with other specified complication, with long-term current use of insulin (CMS/HCC) (Primary Dx) 04/02/2024 Telephone [facility] [address] [place] [address] [facility] 04/02/2024 Telephone [facility] [address] [place] [address] Teresa Darden, RN Results 03/26/2024 Refill [facility] [address] [place] [address] [facility] Type 2 diabetes mellitus with other specified complication, with long-term current use of insulin (CMS/[facility]); Anxiety from Last 3 Months Immunizations Name Administration [...] Used Date Smoking Tobacco: Every Day Cigarettes Passive Smoke Exposure: Current Smokeless Tobacco: Never Tobacco Cessation:Ready to Q [...] Answer Date Recorded Patient Health Questionnaire-9 Score 22 06/16/2024 Patient Health Questionnaire-9 Score 22 06/16/2024 Last PHQ-9: Questionnaire Data Not on file 0 06/16/2024 Housing Stability Answer Date Recorded What is [...] Date Recorded Patient Health Questionnaire-2 Score 6 06/16/2024 Internet Access Answer Date Recorded Internet Access [...] Sign Reading Time Taken Comments Blood Pressure 129/91 06/16/2024 9:52 AM EDT Pulse 93 06/16/2024 9:52 AM EDT Temperature 36.4 ??C (97.6 ??F) 06/16/2024 9:52 AM ED T Respiratory Rate 20 06/16/2024 9:52 AM EDT Oxygen Saturation 98% 05/19/2024 3:09 PM EDT Inhaled Oxygen Concentration - - Weight 123 kg (270 lb 12.8 oz) 06/16/2024 9:52 A M EDT Height 170.2 cm (5' 7 ) 06/16/2024 9:52 AM EDT Body Mass Index 42.41 06/16/2024 9:52 AM EDT Plan of Treatment Upcoming Encounters Date Type Department Care Team (Late st Contact Info) Description 06/24/2024 3:30 PM EDT Office Visit [facility] [address] [place] [address] Anaid Núñez, OD [address] [place] [address] 07/15/2024 11:30 AM EDT Medication Management [facility] [address] [place] [address] Sophie Zapata, PharmD [address] [place], [place] [phone] Health Maintenance Due Date Last Done Comments [...] 2023 , 01/29/2022, 01/24/2006 Diabetes: Hemoglobin A1C 09/16/2024 025, 02/18/2024, 05/02/2023, Additional history exists Diabetes: Urine Protein Screening 09/17/2024 09/18/2023, 06/27/2020 Zoster Vaccines (1 of 2) 2024 Lipid Panel 02/17/2025 02/18/2024, 10/12, 06/27/2020 SDOH Screening 05/13/2025 05/13/2024 Depression Screening 06/16/2025 06/16/2024, 06/17/19 Tobacco Screening 06/16/2025 06/16/2024 Eye Exam 03/17/2026 03/17/2024, 06/2024, 03/17/2024, Additional history exists DTaP/Tdap/Td Vaccines (2 [...] Author Hemoglobin A1c < 7 Result Component 8.1( 10:29 AM EDT) No Vera Bean PharmD Record your blood sugar as directed Result Component No Vera Bean PharmD Procedures Procedure Name Priority Date/Time Associated Diagnosis Comments POCT URINALYSIS DIPSTICK Routine 06/16/2024 10:58 AM EDT Urinary tract infection without hematuria, site unspecified POCT GLYCATED HEMOGLOBIN, TOTAL Routine 06/16/2024 10:29 AM EDT Type 2 diabetes mellitus with other specified complication, with long-term current use of insulin ([facility]) POCT GLUCOSE Routine 06/16/2024 10:28 AM EDT Type 2 diabetes mellitus with other specified complication, with long-term current use of insulin ([facility]) CT ABDOMEN PELVIS W CONTRAST Routine 05/27/2024 11:35 PM EDT CULTURE, URINE, ROUTINE Routine 05/27/2024 9:49 PM EDT URINALYSIS, COMPLETE, WITH REFLEX TO CULTURE Routine 05/27/2024 9:15 PM EDT LIPASE Routine 05/27/2024 7:23 PM EDT COMPREHENSIVE METABOLIC PANEL Routine 05/27/2024 7:23 PM EDT PROTHROMBIN TIME-INR Routine 05/27/2024 7:23 PM EDT CBC WITH AUTO DIFFERENTIAL Routine 05/27/2024 7:23 PM EDT LACTIC ACID LAB USE ONLY Routine 05/19/2024 11:03 PM EDT LACTIC ACID LAB USE ONLY Routine 05/19/2024 7:47 PM EDT URINALYSIS, COMPLETE, WITH REFLEX TO CULTURE Routine 05/19/2024 7:[address] ABDOMEN PELVIS W CONTRAST Routine 05/19/2024 6:59 PM EDT SARS COV2/INFLUENZA A/B AND RSV RNA QL NAAT Routine 05/19/2024 4:35 PM EDT C-REACTIVE PROTEIN Routine 05/19/2024 4: 34 PM EDT BILIRUBIN, DIRECT Routine 05/19/2024 4:3 4 PM EDT LIPASE Routine 05/19/2024 4:34 PM EDT SLIDE REVIEW Routine 05/19/2024 4:34 PM EDT BETA-HYDROXYBUTYRATE Routine 05/19/2024 4:34 PM EDT MAGNESIUM Routine 05/19/2024 4:34 PM EDT COMPREHENSIVE METABOLIC PANEL Routine 05/19/2024 4:34 PM EDT HIGH SENSITIVITY TROPONIN I Routine 05/19/2024 4:34 PM EDT LACTIC ACID Routine 05/19/2024 4:34 PM EDT CBC WITH AUTO DIFFERENTIAL Routine 05/19/2024 4:34 PM EDT POCT URINALYSIS DIPSTICK Routine 05/19/2024 3:24 PM EDT Pyuria LIPID PANEL, STANDARD Routine 02/18/2024 12:20 PM EST Type 2 diabetes mellitus with hyperglycemia, with long-term current use of insulin ([facility]) ALBUMIN, RANDOM URINE W/CREATININE Routine 09/18/2023 12:18 PM EDT HEPATITIS PANEL, GENERAL Routine 11/06/2022 9:28 AM EDT Healthcare maintenance HIV ANTIBODY/ANTIGEN ([place] [facility]) Routine 11/06/2022 9:28 AM EDT from Last 3 Months or Most Recently Relevant to Health Maintenance Results * (ABNORMAL) POCT Urinalysis (06/16/2024 10:58 AM EDT) Only the most recent of2 resultswithin the time period is included. Color, UA Yellow Clarity, UA Clear Glucose, UA Trace Comment:1000mg Bilirubin, UA Trace Comment:small Ketones, UA Negative Spec Grav, UA 1.020 Blood, UA Positive(A) Negative, None Detected Comment:small pH, UA 6.0 Protein, UA Trace Comment:100mg Urobilinogen, UA 1.0 Leukocytes, UA Trace Negative, Rare, Trace Nitrite, UA Positive(A) Negative, None Detected Appearance, UA yellow QC Media Lot # [id number] Lot# Expiration Date ,025 Urine 06/16/2024 10:5 8 AM EDT Bernadine Martínez MD POINT OF CARE TEST EN TER/EDIT ORDERABLES Final Result * (ABNORMAL) POCT HGB A1C (06/16/2024 10:29 AM EDT) Hemoglobin A1C 8.1(A) 4.0 - 6.0 % QC Media Lot # [id number] Lot# Expiration Date 172,027 Blood 06/16/2024 10:2 9 AM EDT Result [facility] Bernadine Martínez MD POINT OF CARE TEST EN TER/EDIT ORDERABLES Final Result * (ABNORMAL) POCT Glucose (06/16/2024 10:28 AM EDT) Glucose Blood, POC 0(A) 60 - 200 mg/dL Comment:[facility] QC Media Lot # [id number] Lot# Expiration Date ,025 Blood Capillary blood specimen / Unknown 06/16/2024 10:28 AM EDT Bernadine Martínez MD POINT OF CARE TEST EN TER/EDIT ORDERABLES Final Result * CT Abdomen Pelvis w/ Contrast (05/27/2024 11:35 PM EDT) Only the most recent of2 resultswithin the time period is included. Anatomical Region Laterality Modality Body, Pelvis, Abdomen Computed T omography 05/27/2024 11:3 5 PM EDT Narrative 05/27/2024 11:37 PM EDT ? [facility] ?[address] ?[place] [address] ? CT Scan Report ? Signed ? Patient: Martínez,Billie ?MR#: [id number] ?? [id number] ? : 1975 ?Acct:[id number] ? Age/Sex: 48 / F ?ADM Date: 04/17/25 ? Loc: HO.ED ? Attending Dr: ? Ordering Physician: Sarah Grimes ?? Date of Service: 05/27/24 ?? Procedure(s): CT abdomen pelvis w IV con ?? Accession Number(s): [id number] ? cc: Sarah Grimes; Angelique Bolaños MAPPING SPECIALIST ? Report Number: ?? [id number]: Total DLP = 1531.00 mGy-cm ? CLINICAL HISTORY: LLQ pain ? CT abdomen and pelvis with contrast ? Comparison: CT - CT ABDOMEN PELVIS W IV CON - 05/27/24 21:56 EDT ?? CT/SR - CT ABDOMEN PELVIS W IV CON - 05/19/24 17:47 EDT ? Findings: ?? The lung bases are clear. ? Liver has a nodular contour, cirrhosis. Gallbladder is surgically absent. ?? Pancreas is unremarkable. Spleen is enlarged. Adrenal glands grossly ?? within normal limits. ?? The kidneys enhance symmetrically and are non hydronephrotic. Areas of ?? renal cortical thinning likely represent prior renal scarring. ?? No bowel obstruction, pneumoperitoneum, or pneumatosis. ?? Retroperitoneal lymph nodes are slightly prominent not meeting CT size ?? criteria for pathologic enlargement. ? Pelvic contents unremarkable. Normal appendix. ?? No acute fracture. ? Atherosclerotic vascular calcifications are present. ? IMPRESSION: ?? Cirrhosis with sequela of portal venous hypertension. ? This document has been electronically signed by: Federico Bee MD, ?? PHD on 05/27/2024 23:35:49 ? Dictated By: ?Federico Bee MD ? Signed By: ?<Electronically signed by Federico Bee MD in OV> ? 05/27/246 ? DD/ ? TD/TT: 05/27/245 ? Inspector Quality Assurance: ? Procedure Note Paresh Goodman - 05/27/[address] [address] [address] Scan Report Signed Patient: Cady Martínez#: [id number] : 1975Acct:[id number] Age/Sex: 48 / FADM Date: 05/27/24 Loc: HO.ED Attending Dr: Ordering Physician: Sarah Grimes Date of Service: 05/27/24 Procedure(s): CT abdomen pelvis w IV con Accession Number(s): [id number] cc: Sarah Grimes; [facility] Report Number: [id number]: Total DLP = 1531.00 mGy-cm CLINICAL HISTORY: LLQ pain CT abdomen and pelvis with contrast Comparison: CT - CT ABDOMEN PELVIS W IV CON - 05/27/24 21:[address]/SR - CT ABDOMEN PELVIS W IV CON - 05/19/24 17:47 EDT Findings: The lung bases are clear. Liver has a nodular contour, cirrhosis. Gallbladder is surgically absent. Pancreas is unremarkable. Spleen is enlarged. Adrenal glands grossly within normal limits. The kidneys enhance symmetrically and are non hydronephrotic. Areas of renal cortical thinning likely represent prior renal scarring. No bowel obstruction, pneumoperitoneum, or pneumatosis. Retroperitoneal lymph nodes are slightly prominent not meeting CT size criteria for pathologic enlargement. Pelvic contents unremarkable. Normal appendix. No acute fracture. Atherosclerotic vascular calcifications are present. IMPRESSION: Cirrhosis with sequela of portal venous hypertension. This document has been electronically signed by: Federico Bee MD, PHD on 05/27/2024 23:35:49 Dictated By: Federico Bee MD Signed By: <Electronically signed by Federico Bee MD in OV> 05/27/242335 DD/ 34 TD/TT: 05/27/242334 Inspector Quality Assurance: [facility] External Provider IMG CT PROCEDURES Edited Result - Final * Culture, Urine, Routine (05/27/2024 9:49 PM EDT) Urine Urine specimen obtained by clean catch procedure / Unknown 05/27/2024 9:49 PM EDT 05/27/2024 9:49 PM EDT Comment:[facility] - 05/29/2024 11:44 AM EDT Urine Culture Report Result Urine Culture 10,000 to 50,000 cfu/ml Urine Culture Mixed bacterial sherley characteristic of Urine Culture urogenital contamination. Specimen Source: Urine clean catch Generic External Data Provider LAB MICROBIOLOGY - GENERAL ORDERABLES Final Result Performing Organization Address City/[facility]/ZIP Co de Phone Number [facility] [address] [place] [phone] * (ABNORMAL) Urinalysis, Complete, with Reflex to Culture (05/27/2024 9:15 PM EDT) Only the most recent of2 resultswithin the time period is included. Color Urine Yellow [facility] Appearance Urine Clear [facility] PH 6.5 5.0 - 9.0 [facility] Glucose Urine UA Negative Negative mg/dL [facility] Urine Blood Negative Negative [facility] Specific [place] - Urine 1.020 1.005 - 1.025 [facility] Urine Protein 100 (2+)(A) Neg-Trace mg/dL [facility] Urine Ketones Negative Negative mg/dL [facility] Nitrite Urine Negative Negative [facility] Leukocyte Esterase Urine Negative Negative [facility] RBC Urine 0-2 0 - 2 /HPF [facility] Urine WBC 6-10(A) 0 - 5 /HPF [facility] Urine Squamous Epithelial Cell 3-5 0 - 2 /HPF [facility] Urine Bacteria Trace None Seen [facility] Hyaline Casts, Urine 0-2 0 - 2 /LPF [facility] 05/27/2024 9:15 PM EDT 05/27/2024 9:18 PM EDT Narrative [facility] - 05/27/2024 9:35 PM EDT Urine, Clean Catch Generic External Data Provider LAB URINE ORDERAB LES Final Result Performing Organization Address City/[facility]/ZIP Co de Phone Number [facility] [address] [place] [phone] * (ABNORMAL) CBC auto differential (05/27/2024 7:23 PM EDT) Only the most recent of2 resultswithin the time period is included. White Blood Count 2.8(L) 4.8 - 10.8 X10*3/uL [facility] Red Blood Count 3.98(L) 4.20 - 5.50 X10*6/uL [facility] Hemoglobin 12.3 12.0 - 16.0 g/dl [facility] Hematocrit 36.4(L) 37.0 - 47.0 % [facility] Mean Corpuscular Volume 91.5 80.0 - 98.0 fL [facility] Mean Corpuscular Hemoglobin 30.9 27.0 - 33.0 pg [facility] Mean Corpuscular HGB Conc 33.8 31.0 - 35.0 g/dl [facility] Red Cell Distribution Width 15.9 11.0 - 16.0 % [facility] Platelet Count 63(L) 160 - 400 X10*3/uL [facility] Mean Platelet Volume 10.5 9.4 - 12.3 fL [facility] Neutrophils Percent Auto 59.2 45 - 73 % [facility] Imm Gran Pct Auto 0.0 0.0 - 0.4 % [facility] Lymphocytes Percent Auto 35.7 20 - 40 % [facility] Monocytes Percent Auto 4.3 2 - 11 % [facility] Eosinophils Percent Auto 0.4 0 - 4 % [facility] Basophils Percent Auto 0.4 0 - 2 % [facility] NRBC Pct Auto 0.0 0.0 - 0.2 /100WBC [facility] Neutrophils Absolute Auto 1.7(L) 2.0 - 8.3 x10*3/uL [facility] Imm Gran Abs Auto 0.00 0.00 - 0.03 X10*3/uL [facility] Lymphocytes Absolute Auto 1.0(L) 1.2 - 4.9 X10*3/uL [facility] Monocytes Absolute Auto 0.1 0.1 - 1.2 X10*3/uL [facility] Eosinophils Absolute Auto 0.0 0.0 - 0.4 X10*3/uL [facility] Basophils Absolute Auto 0.0 0.0 - 0.2 X10*3/uL [facility] NRBC Abs Auto 0.000 0.0 - 0.012 X10*3/uL [facility] 05/27/2024 7:23 PM EDT 05/27/2024 7:25 PM EDT Generic External Data Provider LAB BLOOD ORDERAB LES Final Result Performing Organization Address City/[facility]/ZIP Co de Phone Number [facility] [address] [place] [phone] * (ABNORMAL) Prothrombin Time-INR (05/27/2024 7:23 PM EDT) Prothrombin Time 13.8(H) 10.9 - 12.4 SEC [facility] INTERNATIONAL NORM RATIO 1.2(H) 0.9 - 1.1 [facility] Comment:INTERNATIONAL NORMAL IZED RATIO (INR) REFERENCE RANGES Reference RangeFor patients not on anticoagulant therapy: 0.9 - 1.1INR ranges for oral anticoagulanttherapy:For prevention and treatment of venous thrombosis and pulmonary embolism: 2.0 - 3.0For acute myocardial infarction with aspirin therapy: 2.0 - 3.0For acute myocardial infarction without aspirin therapy: 3.0 - 4.0For patients with mechanical prosthetic heart valves: 2.5 - 3.5 05/27/2024 7:23 PM EDT 05/27/2024 7:25 PM EDT Generic External Data Provider LAB BLOOD ORDERAB LES Final Result Performing Organization Address City/[facility]/ZIP Co de Phone Number [facility] [address] [place] [phone] * Lipase (05/27/2024 7:23 PM EDT) Only the most recent of2 resultswithin the time period is included. Lipase 60 8 - 78 U/L [facility] 05/27/2024 7:23 PM EDT 05/27/2024 7:25 PM EDT us Generic External Data Provider LAB BLOOD ORDERAB LES Final Result [facility] [address] [place] [phone] * (ABNORMAL) Comprehensive Metabolic Panel (05/27/2024 7:23 PM EDT) Only the most recent of2 resultswithin the time period is included. Sodium 140 135 - 145 mmol/L [facility] Potassium 3.4 3.3 - 5.1 mmol/L [facility] Chloride 110(H) 96 - 108 mmol/L [facility] Carbon Dioxide 19(L) 22 - 29 mmol/L [facility] Anion Gap 14 12 - 20 [facility] Urea Nitrogen (BUN) 9 9 - 16 mg/dL [facility] Creatinine, Serum 0.96 0.5 - 1.4 mg/dL [facility] Creatinine Clr Calc Pharmacy 94.6 [facility] Comment:Provided height and weight: 167.64 cm,122.47 kg.eGFR (calculated from the MDRD study equation) and eCrCl(calculated from the Cockcroft-Gault equation) are based ondifferent parameters and may not yield comparable results.If eCrCl result is absurd, please check patient'sheight/weight. Estimated Glomerular Filt Rate >60 [facility] Comment:Chronic Kidney Disea se: Estimated GFR < 60 mL/min/1.91n1Cogmts Kidney Disease: Estimated GFR < 15 mL/min/1.73m2 Glucose 239(H) 60 - 115 mg/dL [facility] Calcium 9.2 8.4 - 10.2 mg/dL [facility] Bilirubin, Total 0.9 0.0 - 1.0 mg/dL [facility] Aspartate Amino Transferase 40(H) 5 - 31 U/L [facility] Alanine Aminotransferase 21 0 - 31 U/L [facility] Total Protein 7.5 6.5 - 8.0 g/dL [facility] Albumin Level 3.1(L) 3.5 - 5.0 g/dL [facility] Alkaline Phosphatase 232(H) 39 - 117 U/L [facility] 05/27/2024 7:23 PM EDT 05/27/2024 7:25 PM EDT Generic External Data Provider LAB BLOOD ORDERAB LES Final Result Performing Organization Address [facility] de Phone Number [facility] [address] [place] [phone] * (ABNORMAL) Lactic Acid (05/19/2024 11:03 PM EDT) Only the most recent of2 resultswithin the time period is included. Lactic Acid 2.8(HH) 0.5 - 2.0 mmol/L [facility] Comment:Critical value for t est(s):LACTA Results called to alonzo back by:ROLA Person calling:HUANGASABDate:05/19/2024 Time:23:31 05/19/2024 11:0 3 PM EDT 05/19/2024 11:07 PM EDT Generic External Data Provider LAB BLOOD ORDERAB LES Final Result Performing Organization Address [facility] de Phone Number [facility] [address] [place] [phone] * SARS-CoV-2 RNA, Influenza A/B, and RSV RNA, Ql NAAT (05/19/2024 4:35 PM EDT) Pathologist [facility] Influenza A PCR NEGATIVE Negative [facility] Influenza B PCR NEGATIVE Negative [facility] Resp Syncy Virus RNA Qual PCR NEGATIVE Negative [facility] SARS COV2 PCR NEGATIVE Negative [facility] Comment:All test results mus t [...] use by authorized laboratories.Testing performed on the [employer] GeneXpert utilizingreal-time RT-PCR.All SARS CoV2 and positive influenza A/B results arereported to [facility]. 05/19/2024 4:35 PM EDT 05/19/2024 4:42 PM EDT Generic External Data Provider LAB MICROBIOLOGY - GENERAL ORDERABLES Final Result Performing Organization Address [facility] Phone Number [facility] [address] [place] [phone] * Slide Review (05/19/2024 4:34 PM EDT) Slide Review VERIFIED [facility] 05/19/2024 4:34 PM EDT 05/19/2024 4:42 PM EDT Generic External Data Provider LAB BLOOD ORDERAB LES Final Result Performing Organization Address [facility] Number [facility] [address] [place] [phone] * High Sensitivity Troponin I (05/19/2024 4:34 PM EDT) TROPONIN I HIGH SENSITIVITY <2.7 <3.5 - 17.0 ng/L [facility] Comment:The Vela high sens itivity Troponin-I results should beused in conjunction with other diagnostic information suchas ECG, clinical observations and information, and patientsymptoms to aid in the diagnosis of [place]. 05/19/2024 4:34 PM EDT 05/19/2024 4:42 PM EDT Generic External Data Provider LAB BLOOD ORDERAB LES Final Result Performing Organization Address [facility] de Phone Number [facility] [address] [place] [phone] * Beta-Hydroxybutyrate (05/19/2024 4:34 PM EDT) Pathologist [facility] Beta-Hydroxybut yrate 0.15 0.02 - 0.27 mmol/L [facility] 05/19/2024 4:34 PM EDT 05/19/2024 5:14 PM EDT Generic External Data Provider LAB BLOOD ORDERAB LES Final Result Performing Organization Address [facility] de Phone Number [facility] [address] [place] [address] [phone] * (ABNORMAL) C-reactive Protein (05/19/2024 4:34 PM EDT) Pathologist [facility] C Reactive Protein 2.84(H) < or = 0.50 mg/dL [facility] 05/19/2024 4:34 PM EDT 05/19/2024 5:14 PM EDT Generic External Data Provider LAB BLOOD ORDERAB LES Final Result Performing Organization Address [facility] Co de Phone Number [facility] [address] [place] [address] [phone] * Magnesium (05/19/2024 4:34 PM EDT) Pathologist [facility] Magnesium 2.1 1.6 - 2.6 mg/dL [facility] 05/19/2024 4:3 4 PM EDT 05/19/2024 5:14 PM EDT Generic External Data Provider LAB BLOOD ORDERAB LES Final Result Performing Organization Address [facility] Co de Phone Number [facility] [address] [place] [address] [phone] * (ABNORMAL) Lactic Acid (05/19/2024 4:34 PM EDT) Pathologist [facility] Lactic Acid 3.4(HH) 0.5 - 2.0 mmol/L [facility] Comment:Critical value for t est(s): LACTA Results called to alonzo back by: EMELY Person calling: HELENE Date: 05/19/24Time: 1703 05/19/2024 4:34 PM EDT 05/19/2024 4:39 PM EDT Generic External Data Provider LAB BLOOD ORDERAB LES Final Result Performing Organization Address City/[facility]/ZIP Co de Phone Number [facility] [address] [place] [address] [phone] * Bilirubin, Direct (05/19/2024 4:34 PM EDT) [facility] Bilirubin, Direct 0.4 0.0 - 0.5 mg/dL [facility] 05/19/2024 4:34 PM EDT 05/19/2024 5:14 PM EDT Generic External Data Provider LAB BLOOD ORDERAB LES Final Result Performing Organization Address City/[facility]/ZIP Co de Phone Number [facility] [address] [place] [address] [phone] * (ABNORMAL) Lipid Panel, Standard (02/18/2024 12:20 PM EST) Pathologist [facility] Triglycerides 110 <150 mg/dL [facility] Comment:Desirable Triglyceri de: less than 150 mg/dLBorderline High Triglyceride 150-199 mg/dLHigh Triglyceride: 200-499 mg/dLVery High Triglyceride: greater than or equal to 5OO mg/dL Cholesterol 52 <200 mg/dL [facility] Comment:Desirable Cholestero l: less than 200 mg/dLBorderline High Cholesterol: 200-239 mg/dLHigh Cholesterol: greater than 239 mg/dL LDL Cholesterol Calculated 13 <100 mg/dL [facility] Comment:Desirable LDL: less than 100 mg/dLNear Optimal/Above Optimal LDL: 110- 129 mg/dLBorderline High LDL: 130-159 mg/dLHigh LDL: 160-189 mg/dLVery High LDL: greater than or equal to 190 mg/dL HDL Cholesterol 17(L) >40 mg/dL [facility] Comment:Desirable HDL: great er than 40 mg/dL Note: This HDL assay may give artificially low results in patients with liver disease. Blood Venous blood specimen / Unknown 02/18/2024 12:20 PM EST 02/18/2024 1:04 PM EST [facility] LAB BLOOD ORDERABLES Final Re sult Performing Organization Address [facility] Co de Phone Number [facility] [address] [place] [address] [phone] * (ABNORMAL) Albumin, Random Urine W/Creatinine (09/18/2023 12:18 PM EDT) Creatinine, Urine 24.90 mg/dL [facility] Microalbumin Urine 43.0 mg/L [facility] Microalbum Creatinine Ratio Ur 172.6(H) <30 ug/mg cr [facility] Comment:Albumin/Creatinine R atio Reference Ranges: Normal: < 30 ug/mg creatinine Microalbuminuria: 30 - 300 ug/mg creatinineClinical Albuminuria: > 300 ug/mg creatinine 09/18/2023 12:1 8 PM EDT 09/18/2023 4:01 PM EDT [facility] LAB URINE ORDERABLES Final Re sult Performing Organization Address [facility] Co de Phone Number [facility] [address] [place] [address] [phone] * HIV Ab/Ag (HAO MADSEN) (11/06/2022 9:28 AM EDT) HIV AB/AG Nonreactive Nonreactive [facility] Comment:HIV-1 p24 Ag and/or HIV-1/HIV-2 Ab not detected.A test result that is nonreactive does not exclude thepossibility of exposure to or infection with HIV-1 and/orHIV-2. Nonreactive results in this assay for individualswith prior exposure to HIV-1 and/or HIV-2 may be due toantigen and antibody levels that are below the limit ofdetection of this assay.The [employer] HIV Ag/Ab Combo assay result andsupplemental assay results should be interpreted inconjunction with the patient's clinical presentation,history and other laboratory results. If the results areinconsistent with clinical evidence, additional testing issuggested to confirm the result. 11/06/2022 9:28 AM EDT 11/06/2022 5:17 PM EDT [facility] LAB BLOOD ORDERABLES Final Re sult Performing Organization Address [facility] Co de Phone Number [facility] [address] [place] [address] [phone] * Hepatitis Panel, General (11/06/2022 9:28 AM EDT) Hepatitis A IgM Nonreactive Nonreactive [facility] Comment:IgM antibodies to ZURITA V not detected; does not exclude earlyacute or recovered HAV infection. ~Hepatitis B Surface Antibody NONREACTIVE Nonreactive [facility] Comment:Nonreactive: < 8.00 mIU/mL Hepatitis B Core Antibody Nonreactive Nonreactive [facility] Hepatitis C Antibody Nonreactive Nonreactive [facility] Comment:Antibodies to HCV no t detected; does not exclude early acuteHCV infection. 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
--- OUTSIDE RECORDS SUMMARY | 2024-06-16 18:04 | XMS_ITS | Encounter Summary ---
Author Organization [employer] Address [address] [facility] 7t [place] [address] Care Team Providers Care Hospital Chief Executive Officer Name Role Phone Angelique Bolaños [facility] Primary Care Provider [phone] Vera Mcgovern PharmD Unavailable [phone] Reason for Visit * Reason Comments Med Refill Encounter Details Date Type Department Care Team ([facility] Contact Info) Description 01/24/2023 Refill [facility] CHC MED & PEDS [address] [place], [place] [phone] Jen Sousa FNP [address] [place] [address] Type 2 diabetes mellitus with hyperglycemia, with long-term current use of insulin ([facility]) Social History Tobacco Use Types Packs/Day Years [...] Description 06/24/2024 3:30 PM EDT Office Visit [facility] OPTOMETRY [address] [place] [address] Wilton, Anaid, OD [address] [place] [address] 07/15/2024 11:30 AM EDT Medication Management [facility] MEDICINE [address] [place] [address] Sophie Zapata PharmD [address] [place] [address] documented as of this encounter Visit Diagnoses Diagnosis Type 2 diabetes mellitus with hyperglycemia, with long-term current use of insulin ([facility]) documented in this encounter Additional Health Concerns Assessment Noted Time PHQ-9 Depression Total Score: 24 023 3:37 PM EDT documented as of this encounter Care Teams Hospital Chief Executive Officer Relationship Specialty Start Date End Date Angelique Bolaños FNP [address] [place] [address] PCP - General Family Medicine 11/08/22 Vera Mcgovern, JessicaD [address] [place] [address], [place] [address] Pharmacist Internal Medicine 08/20/23 documented as of this encounter
--- OUTSIDE RECORDS SUMMARY | 2024-06-16 18:04 | XMS_ITS | Encounter Summary ---
Author Organization [employer] Address [address] [facility] 7t [place] [address] Care Team Providers Care Combat Control Manager Name Role Phone Mami [facility] Primary Care Provider [phone] Vera Mcgovern PharmD Unavailable [phone] Reason for Visit * Reason Comments Med Refill Encounter Details Date Type Department Care Team (Late Contact Info) Description 11/12/2022 Refill [facility]TR[facility] [address] [place] [address] [facility], [facility] [address] [place] [address] Social History Tobacco Use Types Packs/Day Years [...] Description 06/24/2024 3:30 PM EDT Office Visit [facility] OPTOMETRY [address] [place] [address] Wilton, Anaid, OD [address] [place] [address] 07/15/2024 11:30 AM EDT Medication Management [facility] [address] [place] [address] Sophie Zapata, PharmD [address] [place] [address] documented as of this encounter Visit Diagnoses Not on filedocumented in this encounter Additional Health Concerns Assessment Noted Time PHQ-9 Depression Total Score: 24 023 3:16 PM EDT documented as of this encounter Care Teams Combat Control Manager Relationship Specialty Start Date End Date Angelique Bolaños FNP [address] [place] [address] PCP - General Family Medicine 11/08/22 Vera Mcgovern, JessicaD [address] [place] [address] Pharmacist Internal Medicine 08/20/23 documented as of this encounter
--- OUTSIDE RECORDS SUMMARY | 2024-06-16 18:04 | XMS_ITS | Encounter Summary ---
Author Organization [employer] Address [address] [facility] 7t [place] [address] Care Team Providers Care Global Regulatory Affairs Manager Name Role Phone Angelique Bolaños [facility] Primary Care Provider [phone] Vera Mcgovern PharmD Unavailable [phone] Reason for Visit * Reason Comments Med Refill Encounter Details Date Type Department Care Team ([facility] st Contact Info) Description 12/04/2022 Refill [facility] CHC MED & PEDS [address] [place], [place] [phone] Jen Sousa FNP [address] [place] [address] Type 2 diabetes mellitus with hyperglycemia, with long-term current use of insulin ([facility]) Social History Tobacco Use Types Packs/Day Years [...] Description 06/24/2024 3:30 PM EDT Office Visit [facility] OPTOMETRY [address] [place] [address] Wilton, Anaid, OD [address] [place] [address] 07/15/2024 11:30 AM EDT Medication Management [facility] MEDIC[facility] [address] [place] [address] Sophie Zapata, Maddy [address] [place] [address] documented as of this encounter Visit Diagnoses Diagnosis Type 2 diabetes mellitus with hyperglycemia, with long-term current use of insulin ([facility]) documented in this encounter Additional Health Concerns Assessment Noted Time PHQ-9 Depression Total Score: 24 023 3:16 PM EDT documented as of this encounter Care Teams Global Regulatory Affairs Manager Relationship Specialty Start Date End Date Angelique Bolaños FNP [address] [place] [address] PCP - General Family Medicine 11/08/22 Vera Mcgovern, JessicaD [address] [place] [address] Pharmacist Internal Medicine 08/20/23 documented as of this encounter
--- OUTSIDE RECORDS SUMMARY | 2024-06-16 18:04 | XMS_ITS | Encounter Summary ---
Author Organization [employer] Address [address] [facility] 7t [place] [address] Care Team Providers Care Insulation Blanket Maker Name Role Phone Mami [facility] Primary Care Provider [phone] Vera Mcgovern PharmD Unavailable [phone]- [phone] Reason for Visit * Reason Onset Date Comments Nurse Triage 04/02/2023 Encounter Details Date Type Department Care Team ([facility] st Contact Info) Description 04/02/2023 Telephone [facility] MEDICINE [address] [place], [place] [phone] [facility] [address] [place] [address] Nurse Triage Social History Tobacco Use Types [...] patient ED visit on 03/30/23. Seen at [facility] No scheduled appt.But will present to [facility] for alternate issue. * Telephone Encounter - Tiffanie Yeung LPN - 04/02/2023 1:50 PM EST Triage call returned to patient who was seen at [facility] ED 03/30/23 for dx of bronchitis [...] at time of call. Patient advised of [facility] hours and availability for today and tomorrow [...] 15 minutes Reason: Getting worse,[facility] for [facility]. The caller accepted this outcome Please contact pt at [phone] documented in this encounter Plan of Treatment Upcoming Encounters Date Type Department Care Team (Late st Contact Info) Description 06/24/2024 3:30 PM EDT Office Visit [facility] OPTOMETRY [address] [place], [place] [phone] Anaid Núñez, OD [address] [place], [place] [phone] 07/15/2024 11:30 AM EDT Medication Management [facility] [address] [place], [place] [phone] Sophie Zapata, PharmD [address] [place] [address] documented as of this encounter Visit Diagnoses Not on filedocumented in this encounter Additional Health Concerns Assessment Noted Time PHQ-9 Depression Total Score: 17 024 12:52 PM EST documented as of this encounter Care Teams Insulation Blanket Maker Relationship Specialty Start Date End Date Angelique Bolaños FNP [address] [place] [address] PCP - General Family Medicine 11/08/22 Vera Mcgovern, JessicaD [address] [place] [address] Pharmacist Internal Medicine 08/20/23 documented as of this encounter
--- OUTSIDE RECORDS SUMMARY | 2024-06-16 18:04 | XMS_ITS | Encounter Summary ---
Author Organization [employer] Address [address] [facility] 7t [place] [address] Care Team Providers Care Real Estate Appraiser Supervisor Name Role Phone [facility] Primary Care Provider [phone] Vera Mcgovern PharmD Unavailable [phone] Reason for Visit * Reason Onset Date Comments Referral 12/24/2022 [facility]- f/u GI ref erral Care Coordination 12/24/2022 Encounter Details Date Type Department Care Team ([facility] st Contact Info) Description 12/24/2022 Telephone [facility] MEDICINE [address] [place], [place] [phone] [place], [facility] [address] [place], [place] [phone] Referral ([facility]- f/u GI referral); Care Coordination [...] due to urgent was given for [facility] G[facility]. Pt is requesting if it is possible to advance appt for this year. Please contact pt at [phone] documented in this encounter Plan of Treatment Upcoming Encounters Date Type Department Care Team (Late st Contact Info) Description 06/24/2024 3:30 PM EDT Office Visit [facility] OPTOMETRY [address] [place] [address] Anaid Núñez, OD [address] [place] [address] 07/15/2024 11:30 AM EDT Medication Management [facility] MEDIC[facility] [address] [place] [address] Sophie Zapata PharmD [address] [place] [address] documented as of this encounter Visit Diagnoses Not on filedocumented in this encounter Additional Health Concerns Assessment Noted Time PHQ-9 Depression Total Score: 24 023 3:37 PM EDT documented as of this encounter Care Teams Real Estate Appraiser Supervisor Relationship Specialty Start Date End Date Angelique Bolaños FNP [address] [place] [address] PCP - General Family Medicine 11/08/22 Vera Mcgovern, JessicaD [address] [place] [address] Pharmacist Internal Medicine 08/20/23 documented as of this encounter
--- OUTSIDE RECORDS SUMMARY | 2024-06-16 18:04 | XMS_ITS | Encounter Summary ---
Author Organization [employer] Address [address] [facility] 7t [place] [address] Care Team Providers Care Track Welder Name Role Phone [place] [facility] Primary Care Provider [phone] Vera Mcgovern PharmD Unavailable [phone] Reason for Visit * Reason Comments Med Refill Encounter Details Date Type Department Care Team ([facility] st Contact Info) Description 01/22/2023 Refill [facility] CHC MED & PEDS [address] [place], [place] [phone] [facility], [facility] [address] [place] [address] Chronic midline low back pain with sciatica, [...] Description 06/24/2024 3:30 PM EDT Office Visit [facility] OPTOMETRY [address] [place] [address] Wilton, Anaid, OD [address] [place] [address] 07/15/2024 11:30 AM EDT Medication Management [facility] MEDICINE [address] [place] [address] Sophie Zapata, JessicaD [address] [place] [address] documented as of this encounter Visit Diagnoses Diagnosis Chronic midline low back pain with sciatica, sciatica laterality unspecified Chronic low back pain, unspecified back pain laterality, unspecified whether sciatica present documented in this encounter Additional Health Concerns Assessment Noted Time PHQ-9 Depression Total Score: 24 023 3:37 PM EDT documented as of this encounter Care Teams Track Welder Relationship Specialty Start Date End Date Angelique Bolaños FNP [address] [place] [address] PCP - General Family Medicine 11/08/22 Vera Mcgovern, JessicaD [address] [place] [address] Pharmacist Internal Medicine 08/20/23 documented as of this encounter
--- OUTSIDE RECORDS SUMMARY | 2024-06-16 18:04 | XMS_ITS | Encounter Summary ---
Author Organization [employer] Address [address] [facility] 7t [place] [address] Care Team Providers Care Technical Support Technician Name Role Phone [facility] Primary Care Provider [phone] Vera Mcgovern PharmD Unavailable [phone] Reason for Visit * Reason Comments Med Refill Encounter Details Date Type Department Care Team ([facility] st Contact Info) Description 01/27/2023 Refill [facility] CHC MED & PEDS [address] [place], [place] [phone] [facility], [facility] [address] [place] [address] Chronic low back pain, unspecified back pain [...] - 01/29/2023 11:19 AM EST RN called [facility] pharmacy in regards to below message. Lyrica 225mg has been discontinued d/t medication being increased to 300mg BID. [facility] pharmacy reports refill request was sent prior to them discontinuing the medication. No refill needed at this time. Please DISCONTINUE lyrica 225mg from medlist toprevent confusion in future. Thank you! documented in this encounter Plan of Treatment Upcoming Encounters Date Type Department Care Team (Late st Contact Info) Description 06/24/2024 3:30 PM EDT Office Visit [facility] OPTOMETRY [address] [place] [address] Anaid Núñez, OD [address] [place] [address] 07/15/2024 11:30 AM EDT Medication Management [facility] MEDICINE [address] [place] [address] Sophie Zapata, JessicaD [address] [place] [address] documented as of this encounter Visit Diagnoses Diagnosis Chronic low back pain, unspecified back pain laterality, unspecified whether sciatica present documented in this encounter Additional Health Concerns Assessment Noted Time PHQ-9 Depression Total Score: 24 023 3:37 PM EDT documented as of this encounter Care Teams Technical Support Technician Relationship Specialty Start Date End Date Angelique BolañosJESS [address] [place] [address] PCP - General Family Medicine 11/08/22 Vera Mcgovern, Maddy [address] [place] [address] Pharmacist Internal Medicine 08/20/23 documented as of this encounter
--- OUTSIDE RECORDS SUMMARY | 2024-06-16 18:04 | XMS_ITS | Encounter Summary ---
Author Organization [employer] Address [address] [facility] 7t [place] [address] Care Team Providers Care Agriculture Professor Name Role Phone Angelique Bolaños CONTAINERS SALES REPRESENTATIVE Primary Care Provider [phone] Vera Mcgovern PharmD Unavailable [phone]- [phone] Reason for Visit * Reason Comments Med Refill Encounter Details Date Type Department Care Team ([facility] st Contact Info) Description 03/28/2023 Refill [facility] MEDICINE [address] [place], [place] [phone] Name, MD Ammon [address] [place] [address] Pain Social History Tobacco Use Types Packs/Day [...] Description 06/24/2024 3:30 PM EDT Office Visit [facility] OPTOMETRY [address] [place] [address] Anaid Núñez, OD [address] [place] [address] 07/15/2024 11:30 AM EDT Medication Management [facility] MEDICINE [address] [place] [address] Sophie Zapata PharmD [address] [place] [address] documented as of this encounter Visit Diagnoses Diagnosis Pain Generalized pain documented in this encounter Additional Health Concerns Assessment Noted Time PHQ-9 Depression Total Score: 17 024 12:52 PM EST documented as of this encounter Care Teams Agriculture Professor Relationship Specialty Start Date End Date Angelique Bolaños FNP [address] [place] [address] PCP - General Family Medicine 11/08/22 Vera Mcgovern, JessicaD [address] [place] [address] Pharmacist Internal Medicine 08/20/23 documented as of this encounter
--- OUTSIDE RECORDS SUMMARY | 2024-06-16 18:04 | XMS_ITS | Encounter Summary ---
Author Organization [email or web address] Address [address] [facility] 7t [place] [address] Care Team Providers Care Engineering Technology Instructor Name Role Phone Mami [facility] Primary Care Provider [phone] Vera Mcgovern PharmD Unavailable [phone] Reason for Visit * Reason Onset Date Comments Nurse Triage 01/16/2023 Encounter Details Date Type Department Care Team ([facility] st Contact Info) Description 01/16/2023 Telephone [facility] MEDICINE [address] [place], [place] [phone] [facility] [facility] [address] [place] [address] Nurse Triage Social History Tobacco Use Types [...] notes. Pt Scheduled 01/22/2023 at 8:30 am [facility]. Pt agrees to keep this appt and will seek WIC for pain. Protocol Used: Abdominal Pain - Upper (Adult) Protocol-Based Disposition: See in Office or Video Visit within 2 Weeks Future Appointments Date Time Provider Department Center 03/03/2023 12:15 PM [facility] MEDICINE [facility] Positive Triage Question: * Abdominal pain is [...] 3:30 PM EDT Office Visit [facility] OPTOMETRY [address] [place] [address] Wilton, Anaid, OD [address] [place] [address] 07/15/2024 11:30 AM EDT Medication Management [facility] MEDICINE [address] [place] [address] Sophie Zapata PharmD [address] [place] [address] documented as of this encounter Visit Diagnoses Not on filedocumented in this encounter Additional Health Concerns Assessment Noted Time PHQ-9 Depression Total Score: 24 023 3:37 PM EDT documented as of this encounter Care Teams Engineering Technology Instructor Relationship Specialty Start Date End Date Angelique Bolaños FNP [address] [place] [address] PCP - General Family Medicine 11/08/22 Vera Mcgovern, Maddy [address] [place], [place] [phone] Pharmacist Internal Medicine 08/20/23 documented as of this encounter
--- OUTSIDE RECORDS SUMMARY | 2024-06-16 18:04 | XMS_ITS | Encounter Summary ---
Author Organization [employer] Address [address] [facility] 7t [place] [address] Care Team Providers Care Video News Editor Name Role Phone Jen Sousa MANAGER TECHNICAL Primary Care Provider [phone] [place] Angelique MANAGER TECHNICAL Primary Care Provider [phone] Vera Mcgovern PharmD Unavailable [phone] Encounter Details Date Type Department Care Team ([facility] Contact Info) Description 05/14/2022 Telephone [facility] MEDICINE [address] [place], [place] [phone] Jen Sousa FNP [address] [place], [place] [phone] Social History Tobacco Use Types Packs/Day Years [...] Upcoming Encounters Date Type Department Care Team ([facility] Contact Info) Description 06/24/2024 3:30 PM EDT Office Visit [facility] OPTOMETRY [address] [place], [place] [phone] Anaid Núñez, OD [address] [place] [address] 07/15/2024 11:30 AM EDT Medication Management [facility] MEDICINE [address] [place] [address] Sophie Zapata, JessicaD [address] [place] [address] documented as of this encounter Visit Diagnoses Not on filedocumented in this encounter Care Teams Video News Editor Relationship Specialty Start Date End Date Jen Sousa FNP [address] [place] [address] PCP - General Family Medicine 10/04/21 11/07/22 ChesapeakeAngelique FNP [address] [place] [address] PCP - General Family Medicine 11/08/22 Vera Mcgovern PharmD [address] [place] [phone] Pharmacist Internal Medicine 08/20/23 documented as of this encounter
--- OUTSIDE RECORDS SUMMARY | 2024-06-16 18:04 | XMS_ITS | Encounter Summary ---
Author Organization [employer] Address [address] [facility] 7t [place] [address] Care Team Providers Care Operating Room Assistant Name Role Phone Mami [facility] Primary Care Provider [phone] Vera Mcgovern PharmD Unavailable [phone] Reason for Visit * Reason Onset Date Comments Hospital Follow-up 05/24/2024 Encounter Details Date Type Department Care Team ([facility] st Contact Info) Description 05/24/2024 Telephone [facility] MEDICINE [address] [place] [address] [place] [facility] [address] [place] [address] Hospital Follow-up Social History Tobacco Use Types Packs/Day Years [...] * Telephone Encounter - Antoinette Arechiga - 05/24/2024 4:36 PM EDT Tc from pt daughter returning call for HDF appointment. * Telephone Encounter - Antoinette Arechiga - 05/24/2024 3:30 PM EDT Tc from pt requesting a HDF appt. Hospital: [facility] Date of admission: 05/19/24 Discharge date: 05/21/24 Diagnosed: kidney infection Contact pt at [phone] documented in this encounter Plan of Treatment Upcoming Encounters Date Type Department Care Team (Late st Contact Info) Description 06/24/2024 3:30 PM EDT Office Visit [facility] OPTOMETRY [address] [place] [address] Anaid Núñez, OD [address] [place] [address] 07/15/2024 11:30 AM EDT Medication Management [facility] MEDICINE [address] [place] [address] Sophie Zapata PharmD [address] [place] [address] documented as of this encounter Goals Goal [...] documented as of this encounter Care Teams Operating Room Assistant Relationship Specialty Start Date End Date Angelique Bolaños FNP [address] [place] [address] PCP - General Family Medicine 11/08/22 Vera Mcgovern PharmD [address] [place] [address] Pharmacist Internal Medicine 08/20/23 documented as of this encounter
--- OUTSIDE RECORDS SUMMARY | 2024-06-16 18:04 | XMS_ITS | Encounter Summary ---
Author Organization [employer] Address [address] [facility] 7t [place] [address] Care Team Providers Care Screener Perfumer Name Role Phone [facility] Primary Care Provider [phone] Vera Mcgovern PharmD Unavailable [phone] Encounter Details Date Type Department Care Team (Late st Contact Info) Description 01/13/2024 Telephone [facility] MEDICINE [address] [place], [place] [phone] [facility] 230 [place] [address] Social History Tobacco Use Types Packs/Day Years [...] PM EDT Office Visit [facility] OPTOMETRY [address] [place] [address] Wilton, Anaid, OD [address] [place] [address] 07/15/2024 11:30 AM EDT Medication Management [facility] MEDICINE [address] [place] [address] Sophie Zapata PharmD [address] [place] [address] documented as of this encounter Goals Goal [...] documented as of this encounter Care Teams Screener Perfumer Relationship Specialty Start Date End Date [facility] Angelique, INDUSTRIAL ANALYST [address] [place] [address] PCP - General Family Medicine 11/08/22 Vera Mcgovern, JessicaD [address] [place] [address] Pharmacist Internal Medicine 08/20/23 documented as of this encounter
--- OUTSIDE RECORDS SUMMARY | 2024-06-16 18:04 | XMS_ITS | Encounter Summary ---
Author Organization [employer] Address [address] [facility] 7t [place] [address] Care Team Providers Care Electrical And Radio Aircraft Mechanic Name Role Phone Mami [facility] Primary Care Provider [phone] Vera Mcgovern PharmD Unavailable [phone] Reason for Visit * Reason Onset Date Comments PT1 03/04/2024 Encounter Details Date Type Department Care Team ([facility] st Contact Info) Description 03/04/2024 Telephone [facility] MEDICINE [address] [place], [place] [phone] [facility] 230 [place] [address] PT1 Social History Tobacco Use Types Packs/Day [...] Y/N: Yes Provider name or facility name: [address] [address] Escort needed: Y/N: Yes Do you have a wheelchair: Y/N: No If yes- Manual or electric: N/A Visits: (3 x monthly) documented in this encounter Plan of Treatment Upcoming Encounters Date Type Department Care Team (Late st Contact Info) Description 06/24/2024 3:30 PM EDT Office Visit [facility] OPTOMETRY [address] [place] [address] Anaid Núñez, OD [address] [place] [address] 07/15/2024 11:30 AM EDT Medication Management [facility] MEDICINE [address] [place] [address] ZapataSophie sanches PharmD [address] [place] [address] documented as of this encounter Goals Goal Patient Goal Type Associated Problems Recent Progress Patient-Stated? Author Hemoglobin A1c < 7 Result Component 8.1( 5 10:29 AM EDT) No Vera Bean PharmD Record your blood sugar as directed Result Component No Vera Bena PharmD documented as of this encounter Visit Diagnoses Not on filedocumented in this encounter Additional Health Concerns Assessment Noted Time PHQ-9 Depression Total Score: 0 02/17/19 25 11:42 AM EST documented as of this encounter Care Teams Electrical And Radio Aircraft Mechanic Relationship Specialty Start Date End Date Angelique Bolaños FNP [address] [place] [address] PCP - General Family Medicine 11/08/22 Vera Mcgovern PharmD [address] [place] [address] Pharmacist Internal Medicine 08/20/23 documented as of this encounter
--- OUTSIDE RECORDS SUMMARY | 2024-06-16 18:04 | XMS_ITS | Clinical Summary ---
Author Organization [address] [facility] Address [address] [place] [address] Phone Care Team Providers Care Faceter Name Role Phone [employer] Primary Care Provider [phone] Allergies Active Allergy Reactions Criticality Noted Date Comments Acetaminophen 04/28/2024 Medications ibuprofen (ADVIL,MOTRIN) 600 mg tablet Take 1 tablet (600 mg total) by mouth every 8 (eight) hours if needed for moderate pain. 30 tablet 04/29/2024 Active Encounters Date Type Department Care Team Description 05/17/2024 8:25 PM EDT - 05/18/2024 4:21 AM EDT [facility] Emergency [address] [place] [phone] Discharge Disposition: Left Against Medical Advice 04/28/2024 11:53 PM EDT - 04/29/2024 6:10 AM EDT [facility] Emergency [address] [place] [phone] Right upper quadrant abdominal pain (Primary Dx) [...] Care Team (Late st Contact Info) Description 09/01/2024 2:45 PM EDT Consult Orthopedic Surgery - [place] [address] [address] Fabricio Gao, DPM [address] [address] Health Maintenance Due Date Last Done Comments [...] of2 resultswithin the time period is included. [facility] WBC 5.2 4.8 - 10.8 K/mcL LAB HEMETOLOGY METHOD 05/17/2024 9:41 PM EDT [facility] RBC 4.30 3.80 - 4.80 M/mcL LAB HEMETOLOGY METHOD 05/17/2024 9:41 PM EDT [facility] Hemoglobin 13.1 11.5 - 16.0 g/dL LAB HEMETOLOGY METHOD 05/17/2024 9:41 PM EDT [facility] Hematocrit 39.6 35.0 - 47.0 % LAB HEMETOLOGY METHOD 05/17/2024 9:41 PM EDT [facility] MCV 92.5 79.0 - 98.0 FL LAB HEMETOLOGY METHOD 05/17/2024 9:41 PM EDT [facility] MCH 30.6 27.0 - 32.0 pcg LAB HEMETOLOGY METHOD 05/17/2024 9:41 PM EDT [facility] MCHC 33.1 32.0 - 37.0 g/dL LAB HEMETOLOGY METHOD 05/17/2024 9:41 PM [facility] RDW 15.7(H) 11.0 - 15.0 % LAB [facility] 64(L) 130 - 400 K/mcL LAB HEMETOLOGY METHOD 05/17/2024 9:41 PM EDT [facility] Comment:previously verified by slide MPV 11.1(H) 7.0 - 11.0 FL LAB HEMETOLOGY [facility]/17[facility]2024 [facility] NRBC 0.0 <1.0 % LAB HEMETOLOGY METHOD 05/17/2024 9:41 PM [facility] NRBC Absolute 0.00 <0.10 K/mcL LAB HEMETOLOGY METHOD 05/17/2024 9:41 PM [facility] Neutrophils Relative 64.8 % LAB HEMETOLOGY METHOD 05/17/2024 9:41 PM [facility] Lymphocytes Relative 27.7 % LAB HEMETOLOGY METHOD 05/17/2024 9:41 PM [facility] Monocytes Relative 5.9 % LAB HEMETOLOGY METHOD 05/17/2024 9:41 PM [facility] Eosinophils Relative 0.8 % LAB HEMETOLOGY METHOD 05/17/2024 9:41 PM [facility] Basophils Relative 0.4 % LAB HEMETOLOGY METHOD 05/17/2024 9:41 PM [facility] Immature Granulocytes Relative 0.4 % LAB HEMETOLOGY METHOD 05/17/2024 9:41 PM [facility] Neutrophils Absolute 3.39 1.50 - 7.00 K/mcL LAB HEMETOLOGY METHOD 05/17/2024 9:41 PM [facility] Lymphocytes Absolute 1.45 1.00 - 5.00 K/mcL LAB HEMETOLOGY METHOD 05/17/2024 9:41 PM [facility] Monocytes Absolute 0.31 0.20 - 1.00 K/mcL LAB HEMETOLOGY METHOD 05/17/2024 9:41 PM [facility] Eosinophils Absolute 0.04 0.00 - 0.50 K/mcL LAB HEMETOLOGY METHOD 05/17/2024 9:41 PM EDT [facility] Basophils Absolute 0.02 0.00 - 0.20 K/[facility] LAB HEMETOLOGY METHOD 05/17/2024 9:41 PM EDT [facility] Immature Granulocytes Absolute 0.02 0.00 - 0.03 K/[facility] LAB HEMETOLOGY METHOD 05/17/2024 9:41 PM EDT [facility] Blood Venous blood specimen / Unknown Venipuncture / Unknown 05/17/2024 8:58 PM EDT 05/17/2024 9:06 PM EDT us German Mittal MD LAB BLOOD ORDERABLES Final Result Performing Organization Address [facility] de Phone Number [facility] [address] [place] [address], [place] [phone] * (ABNORMAL) Lipase (05/17/2024 8:58 PM EDT) Only the most recent of2 resultswithin the time period is included. Lipase 95(H) 13 - 75 unit/L LAB CHEMISTRY METHOD 05/17/2024 9:32 PM EDT [facility] Blood Venous blood specimen / Unknown Venipuncture / Unknown 05/17/2024 8:58 PM EDT 05/17/2024 9:05 PM EDT German Mittal MD LAB BLOOD ORDERABLES Final Result Performing Organization Address [facility]/ZIP Co de Phone Number [facility] [address] [place] [address], [place] [phone] * (ABNORMAL) Comprehensive metabolic panel (05/17/2024 8:58 PM EDT) Only the most recent of2 resultswithin the time period is included. Sodium 140 133 - 145 mmol/L LAB CHEMISTRY METHOD 05/17/2024 9:32 PM EDT [facility] Potassium 3.8 3.5 - 5.5 mmol/L LAB CHEMISTRY METHOD 05/17/2024 9:32 PM [facility] Chloride 108 96 - 110 mmol/L LAB CHEMISTRY METHOD 05/17/2024 9:32 PM [facility] CO2 25 21 - 32 mmol/L LAB CHEMISTRY METHOD 05/17/2024 9:32 PM [facility] Anion Gap 7 3 - 11 LAB CHEMISTRY METHOD 05/17/2024 9:32 PM [facility] Glucose 141(H) 70 - 100 mg/dL LAB CHEMISTRY METHOD 05/17/2024 9:32 PM [facility] BUN 10 5 - 25 mg/dL LAB CHEMISTRY METHOD 05/17/2024 9:32 PM [facility] Creatinine 1.23(H) 0.50 - 1.10 mg/dL LAB CHEMISTRY METHOD 05/17/2024 9:32 PM [facility] eGFR 54(L) >=60 mL/min/1. 73m2 LAB CHEMISTRY METHOD 05/17/2024 9:32 PM [facility] Comment:Calculation based on the??Chronic Kidney Disease Epidemiology Collaboration (CKD-EPI) equation refit??without adjustment for race. BUN/Creatinine Ratio 8.1 LAB CHEMISTRY METHOD 05/17/2024 9:32 PM [facility] Calcium 9.4 8.5 - 10.5 mg/dL LAB CHEMISTRY METHOD 05/17/2024 9:32 PM [facility] AST (SGOT) 35 10 - 42 unit/L LAB CHEMISTRY METHOD 05/17/2024 9:32 PM [facility] ALT (SGPT) 26 10 - 60 unit/L LAB CHEMISTRY METHOD 05/17/2024 9:32 PM [facility] Alkaline Phosphatase 288(H) 42 - 121 unit/L LAB CHEMISTRY METHOD 05/17/2024 9:32 PM EDT [facility] Total Protein 7.9 6.0 - 8.0 g/dL LAB CHEMISTRY METHOD 05/17/2024 9:32 PM EDT [facility] Albumin 3.2 3.2 - 5.0 g/dL LAB CHEMISTRY METHOD 05/17/2024 9:32 PM EDT [facility] Total Bilirubin 1.2 0.0 - 1.4 mg/dL LAB CHEMISTRY METHOD 05/17/2024 9:32 PM EDT [facility] Blood Venous blood specimen / Unknown Venipuncture / Unknown 05/17/2024 8:58 PM EDT 05/17/2024 9:05 PM EDT us German Mittal MD LAB BLOOD ORDERABLES Final Result [facility] [address] [place] [address], [place] [phone] * POC , urine manually resulted (05/17/2024 8:50 PM EDT) Pathologist [facility] HCG, Ur POC Negative Negative POC hCG Int QC Pass? Yes Yes Urine Urine specimen obtained by clean catch procedure / Unknown 05/17/2024 8:50 PM EDT us German Mittal MD POINT OF CARE TEST ENTER/ED IT ORDERABLES Final Result * (ABNORMAL) Urinalysis with reflex microscopic and culture (05/17/2024 8:47 PM EDT) Pathologist [facility] Specific [place] Urine 1.017 1.003 - 1.030 LAB URINALYSIS - AUTOMATED METHOD 05/17/2024 9:32 PM EDT [facility] pH, Urine 7.0 5.0 - 8.0 pH LAB URINALYSIS - AUTOMATED METHOD 05/17/2024 9:32 PM EDT [facility] Leukocytes, Urine Large(A) Negative LAB URINALYSIS - AUTOMATED METHOD 05/17/2024 9:32 PM [facility] Nitrite, Urine Positive(A) Negative LAB URINALYSIS - AUTOMATED METHOD 05/17/2024 9:32 PM [facility] Protein, Urine 100(A) <=Trace mg/dL LAB URINALYSIS - AUTOMATED METHOD 05/17/2024 9:32 PM [facility] Glucose, Urine Negative Negative mg/dL LAB URINALYSIS - AUTOMATED METHOD 05/17/2024 9:32 PM [facility] Ketones, Urine Negative Negative mg/dL LAB URINALYSIS - AUTOMATED METHOD 05/17/2024 9:32 PM [facility] Urobilinogen , Urine 2.0(A) 0.2 - 1.0 mg/dL LAB URINALYSIS - AUTOMATED METHOD 05/17/2024 9:32 PM [facility] Bilirubin, Urine Negative Negative LAB URINALYSIS - AUTOMATED METHOD 05/17/2024 9:32 PM [facility] Blood, Urine Small(A) Negative LAB URINALYSIS - AUTOMATED METHOD 05/17/2024 9:32 PM [facility] RBC, Urine 16.8(H) 0 - 4 /HPF LAB URINALYSIS - AUTOMATED METHOD 05/17/2024 9:32 PM [facility] WBC, Urine 293.0(H) 0 - 4 /HPF LAB URINALYSIS - AUTOMATED METHOD 05/17/2024 9:32 PM [facility] Squamous Epithelial, Urine 25 0 - 60 /LPF LAB URINALYSIS - AUTOMATED METHOD 05/17/2024 9:32 PM [facility] Bacteria, Urine Many(A) Negative /HPF LAB URINALYSIS - AUTOMATED METHOD 05/17/2024 9:32 PM [facility] Hyaline Casts, Urine 1.2 0 - 3 /LPF LAB URINALYSIS - AUTOMATED METHOD 05/17/2024 9:32 PM EDT [facility] Urine Urine specimen obtained by clean catch procedure / Unknown Non-blood Collection / Unknown 05/17/2024 8:47 PM EDT 05/17/2024 9:07 PM EDT German Mittal MD LAB URINE ORDERABLES Final Result Performing Organization Address [facility]/ZIP Co de Phone Number [facility] [address] [place] [address], [place] [phone] * Ureña urine culture tube (05/17/2024 8:47 PM EDT) Pathologist [facility] Extra Tube Hold for add-ons. 05/17/2024 11:01 PM EDT [facility] Comment:Auto resulted. Urine Urine specimen obtained by clean catch procedure / Unknown Non-blood Collection / Unknown 05/17/2024 8:47 PM EDT 05/17/2024 9:07 PM EDT German Mittal MD LAB URINE ORDERABLES Final Result Performing Organization Address [facility] de Phone Number [facility] [address] [place] [address], [place] [phone] * Culture urine (05/17/2024 8:47 PM EDT) Pathologist [facility] Culture, Urine >100,000 CFU/mL Mixed bacterial morphotypes present suggestive of possible contamination during collection. Suggest appropriate recollection if clinically indicated. 05/19/2024 10:43 AM EDT [facility] Urine Urine specimen obtained by clean catch procedure / Unknown Non-blood Collection / Unknown 05/17/2024 8:47 PM EDT 05/17/2024 9:32 PM EDT German Mittal MD LAB MICROBIOLOGY - GENERAL ORDERABLES Final Result Performing Organization Address [facility] de Phone Number [facility] [address] [place] [address], * ECG-Annotated (04/30/2024) us Provider Onbase ECG ORDERABLES Final Result * [...] CT Abdomen and Pelvis W Contrast COMPARISON: US/UT - US ABD LIMITED - 04/29/24 00:25 [...] CT Abdomen and Pelvis W Contrast COMPARISON: US/UT - US ABD LIMITED - 04/29/24 00:25 [...] since the prior study performed 03/30/2023. Code 82066 -------- FINAL REPORT -------- Dictated By: Domingo Torres Dictated Date: 04/29/2024 08:00 ET Assigned Physician: Domingo Torres Reviewed and Electronically Signed By: Domingo Torres Signed Date: 04/29/2024 08:01 ET Workstation ID: [id number] Transcribed By: Self Edit Transcribed Date: 04/29/2024 [...] since the prior study performed 03/30/2023. Code 76000 -------- FINAL REPORT -------- Dictated By: Domingo Torres Dictated Date: 04/29/2024 08:00 ET Assigned Physician: Domingo Torres Reviewed and Electronically Signed By: Domingo Torres Signed Date: 04/29/2024 08:01 ET Workstation ID: [id number] Transcribed By: Self Edit Transcribed Date: 04/29/2024 08:00 ET us Cr Couch MD IMG XR PROCEDURES Final Result * US [...] MD on 04/29/2024 02:16:53 us Renzo WHITMAN IMG US PROCEDURES Final Result * ECG 12 lead (04/29/2024 12:40 AM EDT) Only the most recent of2 resultswithin the time period is included. [facility] Ventricular Rate ECG 74 BPM GEMUSE Atrial Rate 74 BPM GEMUSE P-R Interval 156 ms GEMUSE QRS Duration 74 ms GEMUSE Q-T Interval 410 ms GEMUSE QTc 455 ms GEMUSE P Wave [place] 39 degrees GEMUSE R [place] -6 degrees GEMUSE T [place] 2 degrees GEMUSE ECG Interpretation Normal sinus [...] AM EDT 04/29/2024 7:55 PM EDT Cr Zulema Couch MD ECG ORDERABLES Final Result GEMUSE * Troponin I high sensitivity (04/29/2024 12:21 AM EDT) Only the most recent of2 resultswithin the time period is included. [facility] High Sensitivity Troponin I 3 <=54 ng/L LAB CHEMISTRY METHOD 04/29/2024 1:38 AM EDT [facility] Blood Venous blood specimen / Unknown Venipuncture / Unknown 04/29/2024 12:21 AM EDT 04/29/2024 1:12 AM EDT Narrative [facility] - 04/29/2024 1:38 AM EDT High levels of biotin in samples may falsely decrease hsTroponin values. ??Use caution when interpreting hsTroponin results in patients taking biotin who exhibit renal impairment (eGFR <60) or in patients taking more than 20 mg/day of biotin. Cr Couch MD LAB BLOOD ORDERABLES Final Resu lt Performing Organization Address City/[facility]/ZIP Co de Phone Number [facility] [address] [place] [address], [place] [phone] * hCG Qualitative (04/28/2024 9:27 PM EDT) hCG Qual Negative Negative 04/29/2024 3:07 AM EDT [facility] Blood Venous blood specimen / Unknown Venipuncture / Unknown 04/28/2024 9:27 PM EDT 04/28/2024 9:44 PM EDT Renzo WHITMAN LAB BLOOD ORDERABLES Final Resul t Performing Organization Address [facility] Co de Phone Number [facility] [address] [place] [address], * B-type natriuretic peptide (04/28/2024 9:27 PM EDT) BNP 30 <=100 pcg/mL LAB CHEMISTRY METHOD 04/28/2024 10:21 PM EDT [facility] Blood Venous blood specimen / Unknown Venipuncture / Unknown 04/28/2024 9:27 PM EDT 04/28/2024 9:44 PM EDT Cr Couch MD LAB BLOOD ORDERABLES Final Resu lt Performing Organization Address City/[facility]/ZIP Co de Phone Number [facility] [address] [place] [address], [place] [phone] * Magnesium (04/28/2024 9:27 PM EDT) Magnesium 2.0 1.9 - 2.6 mg/dL LAB CHEMISTRY METHOD 04/28/2024 10:13 PM EDT [facility] Blood Venous blood specimen / Unknown Venipuncture / Unknown 04/28/2024 9:27 PM EDT 04/28/2024 9:44 PM EDT us Cr Zulema Couch MD LAB BLOOD ORDERABLES Final Resu lt MIMI [facility] ([facility] [address] [place] [address], from Last 3 Months Insurance MEDICAID - [place] Care Teams Faceter Relationship Specialty Start Date End Date Angelique Bolaños [address] [place] [phone] PCP - General Family Medicine 04/05/24
--- OUTSIDE RECORDS SUMMARY | 2024-06-16 18:05 | XMS_ITS | Encounter Summary ---
Author Organization [employer] Address [address] [facility] [address] [place] [address] Care Team Providers Care Pipe Organ Mechanic Apprentice Name Role Phone Angelique Bolaños REPORTING ANALYST Primary Care Provider [phone] Vera Mcgovern PharmD Unavailable [phone] Encounter Details Date Type Department Care Team (Latest Contact Info) Description 06/16/2024 Travel Social History Tobacco Use Types Packs/Day Years Used Date Smoking Tobacco: Every Day Cigarettes Passive Smoke Exposure: Current Smokeless Tobacco: Never Alcohol Use Standard Drinks/Week [...] Description 06/24/2024 3:30 PM EDT Office Visit [facility] [address] [place] [address] [place], Anaid, OD [address] [place] [address] 07/15/2024 11:30 AM EDT Medication Management [facility] [address] [place] [address] Sophie Zapata PharmD [address] [place] [address] documented as of this encounter Goals Goal Patient Goal Type Associated Problems Recent Progress Patient-Stated? Author Hemoglobin A1c < 7 Result Component 8.1( 10:29 AM EDT) No Piers-Gambl e, Vera, PharmD Record your blood sugar as directed Result Component No Piers-Gambl e, Vera, PharmD documented as of this encounter Visit Diagnoses Not on filedocumented in this encounter Additional Health Concerns Assessment Noted Time PHQ-9 Depression Total Score: 22 025 10:29 AM EDT documented as of this encounter Care Teams Pipe Organ Mechanic Apprentice Relationship Specialty Start Date End Date Angelique Bolaños FNP [address] [place] [address] PCP - General Family Medicine 11/08/22 Vera Mcgovern, JessicaD [address] [place] [address] [place] [address] Pharmacist Internal Medicine 08/20/23 documented as of this encounter
--- OUTSIDE RECORDS SUMMARY | 2024-06-16 18:05 | XMS_ITS | Encounter Summary ---
Author Organization [employer] Address [address] [facility] [address] [place] [address] Care Team Providers Care Transport Analyst Name Role Phone Angelique Bolaños FINISHING TUNNEL OPERATOR Primary Care Provider [phone] Vera Mcgovern PharmD Unavailable [phone] Reason for Referral * Consultation (Routine) - Authorized Specialty Diagnoses / Procedures Referred By Contvel t Referred To Contact Pharmacy Diagnoses Type 2 diabetes mellitus with other specified complication, with long-term current use of insulin (CMS/HCC) Lisha Maxwell MD [address] [place] [address] Phone: tel: fax: Referral ID Status Reason Start Date Expiration Date Visits Requested Visits Authorized [id number] Authorized Consult and Treat 04/05/2024 04/05/2025 6 6 Encounter Details Date Type Department Care Team (Late st Contact Info) Description 04/05/2024 Orders Only [facility] [address] [place] [address] Lisha Maxwell MD [address] [place] [address] Type 2 diabetes mellitus with other specified [...] Description 06/24/2024 3:30 PM EDT Office Visit [facility] [address] [place] [address] Anaid Núñez, OD [address] [place] [address] 07/15/2024 11:30 AM EDT Medication Management [facility] [address] [place] [address] Sophie Zapata PharmD [address] [place] [address] Scheduled Referrals Name Type Priority Associated Diagnoses Orde r Schedule Referral to Pharmacy CDTM Outpatient Referral Routine Type 2 diabetes mellitus with other specified complication, with long-term current use of insulin ([facility]) Ordered: 04/05/2024 documented as of this encounter [...] complication, with long-term current use of insulin (CMS/[facility])- Primary documented in this encounter Additional Health Concerns Assessment Noted Time PHQ-9 Depression Total Score: 0 02/17/19 25 11:42 AM EST documented as of this encounter Care Teams Transport Analyst Relationship Specialty Start Date End Date [place] FNP [address] [place] [address] PCP - General Family Medicine 11/08/22 Vera Mcgovern PharmD [address] [place] [address] Pharmacist Internal Medicine 08/20/23 documented as of this encounter
--- OUTSIDE RECORDS SUMMARY | 2024-06-16 18:05 | XMS_ITS | Continuity of Care Document ---
Author Organization [employer] [facility] vices Address [address] [place] [address] Phone Care Team Providers Care Pipe Supervisor Name Role Phone Sallie Ryan MD Unavailable Unavailable Allergies, Adverse Reactions, Alerts Substance Reaction Status Criticality acetaminophen Liver Toxicity Active No Informati on Medications Medication Instructions Dosage Effective Dates (start - stop) Status Comments OZEMPIC 1.34MG/ML INJ INJECT 0.5 MG BY SUBCUTANEOUS ROUTE EVERY WEEK - Active metformin 1,000 mg tablet take 1 tablet by oral route 2 times every day with morning and evening meals 1000 MG - Active naproxen 500 mg tablet take 1 tablet by oral route 2 times every day with food 500 MG - Active cyclobenzaprine 10 mg tablet TAKE ONE TABLET BY MOUTH 3 TIMES A DAY - Active ONE TOUCH DELICA PLUS TEST TWICE A DAY 1 Each - Active ONE TOUCH ULTRA TEST STRIP NOE TEST TWICE A DAY 1 test strip - Active ONETOUCH ULTRA2 SYST TEST TWICE A DAY - Active tamsulosin 0.4 mg capsule take [...] PREVENTION 50 MG - Active Ultra-Light Rollator Lockitron Rolling walker with seat dx M54.9 x [...] 2 WEEKS - Active Miscellaneous Script MISCELL [employer] Shower chair and grab bars dx R55 [...] Charge URINALYSIS (IH) CBC W/O DIFF (CLP 59833) NEW Level 3 - Detailed HIV-1/HIV-2 AB, REFLEX WB RPR TSH GONORRHEA, DNA (CLP 43625) CHLAMYDIA (CLP 53241) LIPASE HEPATITIS B SURF AB QUANT HEPATITIS B SURFACE AG, EIA HEPATITIS C AB AZITHROMYCIN H PYLORI AB IGG (CLP 57401) CEFTRIAXONE SODIUM INJECTION GLUCOSE, RANDOM (IH) AST (CLP 61030) ALT (CLP 17482) BASIC METABOLIC PANEL AMYLASE US EXAM, ABDOM, COMPLETE TEST, URINE (IH) Advance Directives Directive Yes / No Effective Date File Name No Information Encounters Encounter Description Practice Location Reason(s) For Visit Diagnoses Date Provider Providers Copied on Encounter [facility], [address], [place], [address], [place] tel:[phone] [facility] Adult Medicine No Information 1 Connor Rizo. [address], [id number] [place], [address], [place]. tel:[phone] [facility], [place], [address], [place] tel:[phone] [facility] Adult Medicine No Information Dec-2 3-202 0 Brown Orett. [address], [id number] [place], [address], [place]. tel:[phone] [facility], [place], [address], [place] tel:[phone] [facility] Adult Medicine No Information Dec-2 1-202 0 Brown Orett. [address], [id number] [place], [address], [place]. tel:[phone] [facility], [place], [address], [place] tel:[phone] [facility] Adult Medicine No Information Jan- 2-202 0 Brown Orett. [address], [id number] [place], [address], [place]. tel: [phone] [facility], [place], [address], [place] tel:[phone] [facility] Adult Medicine No Information Oct-3 0-202 0 Brown Orett. [address], [id number] [place], [address], [place]. tel: [phone] [facility], [place], [address], [place] tel:[phone] [facility] Adult Medicine No Information Nov-2 2-202 0 Brown Orett. [address], [id number] [place], [address], [place]. tel:[phone] [facility], [place], [address], [place] tel:[phone] [facility] Adult Medicine No Information Nov-1 8-202 0 Brown Orett. [address], [id number] [place], [address], [place]. tel:[phone] [facility], [address] [place] [address], [facility], [place] tel:[phone] [facility] Adult Medicine No Information 0 Connor Rizo. [facility], [id number] [address] [place] [address], [address], [place]. tel:[phone] [facility], [address] [place] [address], [facility], [place] tel:[phone] [facility] Adult Medicine No Information 0 Connor Rizo. [facility], [id number] [address] [place] [address], [address], [place]. tel:[phone] Telephone E/M By Provider 11-20 MIN [facility], [address] [place] [address], [facility], [place] tel:[phone] [facility] Adult Medicine Telehealth (chief complaint) Kidney stonesType 2 diabetesConst ipation, unspecified constipation type 0 Connor Otttt. Nolberto [facility], [id number] [address] [place] [address], [facility], [place]. tel:[phone] [facility], [address] [place] [address], [facility], [place] tel:[phone] [facility] Adult Medicine No Information 0 Connor Otttt. [address], [id number] [address] [place] [address], [address], [place]. tel:[phone] [facility], [address] [place] [address], [facility], [place] tel:[phone] [facility] Adult Medicine No Information 0 Connor Otttt. [facility]to [facility], [id number] [address] [place] [address], [facility], [place]. tel:[phone] OFFICE/OUTPT Visit, EST - DetHx, Abilio, DavidM, 25 Minutes [facility], [address] [place] [address], [facility], [place] tel:[phone] [facility] Adult Medicine Hosp F/u (chief complaint) Body mass index (BMI) 45.0-49.9, adultEncounte r for screening, unspecifiedBr east calcification sOpacity of lung on imaging studyChronic constipationT ype 2 diabetes May- 0 Connor Rizo. [address], [id number] [address] [place] [address], [address], [place]. tel:[phone] OFFICE/OUTPA TIENT VISIT, [facility], [address] [place] [address], [address], [place] tel:[phone] [facility] Adult Medicine follow up (chief complaint) Body mass index (BMI) 45.0-49.9, adultEncounte r for screening, unspecifiedSp inal stenosis, lumbar region with neurogenic claudicationH ypertrophy of breastType 2 diabetes mellitus without complications 9 Connor Rizo. 500 [facility], [id number] [address] [place] [address], [address], [place]. tel:[phone] OFFICE/OUTPA TIENT VISIT, [facility], [address] [place] [address], [facility], [place] tel:[phone] [facility] Adult Medicine routine F/u (chief complaint) Body mass index (BMI) 45.0-49.9, adultEncounte r for screening, unspecifiedSp inal stenosis, lumbar region with neurogenic claudicationS ialadenitis 9 Connor Rizo. [address], [id number] [address] [place] [address], [address], [place]. tel:[phone] OFFICE/OUTPA TIENT VISIT, [facility], [address] [place] [address], [address], [place] tel:[phone] [facility] Cardiology fatigue (chief complaint)pal pitations (chief complaint)Diz ziness (chief complaint) Generalized anxiety disorderOther psychoactive substance use, unspecified with other psychoactive substance-ind uced disorderMajor depressive disorder, recurrent, moderateDorsa lgia, unspecifiedPr ediabetesPalp itations 9 No Information [facility], [address] [place] [address], [address], [place] tel:[phone] [facility] Adult Medicine No Information 9 Connor Rizo. [address], [id number] [address] [place] [address], [facility], [place]. [phone] OFFICE/OUTPA TIENT VISIT, [facility], [address] [place] [address], [facility], [place] tel:[phone] [facility] Adult Medicine routine f/u (chief complaint) Body mass index (BMI) 45.0-49.9, adultEncounte r for screening, unspecifiedOt her chronic painLarge breastsType 2 diabetes mellitus without complication, with long-term current use of insulinLong term (current) use of insulinBenign essential HTNChronic bilateral low back pain with sciatica, sciatica laterality unspecified 9 Connor Rizo. [address] [place], [place] [address]tiff, [id number] [address] [place] [address], [facility], [place]. tel:[phone] [facility], [address] [place] [address], [facility], tel:[phone] [facility] Adult Medicine [place] No Information 8 Connor Rizo. [address] [place] [address], [id number] [address] [place] [address], [facility], [place]. tel:[phone] Psychotherap y, 45 Minutes With Patient [facility], [address] [place] [address], tel:[phone] [facility] Behavioral Health Generalized Anxiety DisorderCanna bis dependence, uncomplicated Major depressive disorder, recurrent, moderate 8 No Information [facility], [address] [place] [address], [facility], [place] tel:[phone] [facility] Adult Medicine No Information 8 No Information OFFICE/OUTPA TIENT VISIT, [facility], [address] [place] [address], [facility], [place] tel:[phone] [facility] Adult Medicine c/o Arm Pain (chief complaint) Body mass index (BMI) 45.0-49.9, adultEncounte r for screening for diabetes mellitusEncou nter for screening, unspecifiedLi ghtheadedness Oct- 8 Connor Rizo. 500 [facility], [id number] [address] [place] [address], [address], [place]. tel:[phone] OFFICE/OUTPA TIENT VISIT, [facility], [address] [place] [address], [address], [place] tel:[phone] [facility] Adult Medicine TRIAGE (chief complaint)diz zy/lightheade d with falls (chief complaint) Vasovagal reactionDorsa lgia, unspecifiedEn counter for screening, unspecifiedEn counter for test, result negative 8 No Information [facility], [address] [place] [address], [address], [place] tel:[phone] [facility] Optometry Diabetes Examination (chief complaint)Brenda betes Examination (chief complaint) Type 2 diabetes mellitus without complications Myopia, bilateral 8 No Information OFFICE/OUTPA TIENT VISIT, [facility], [address] [place] [address], [facility], [place] tel:[phone] [facility] Adult Medicine Lab results (chief complaint) Type 2 diabetes mellitus without complications Essential (primary) hypertensionB neelam mass index (BMI) 45.0-49.9, adultEncounte r for screening, unspecifiedPa in of upper abdomenDermat itis 8 No Information OFFICE/OUTPA TIENT VISIT, [facility], [address] [place] [address], [address], [place] tel:[phone] [facility] Adult Medicine back Pain f/u (chief complaint) Body mass index (BMI) 40.0-44.9, adultEncounte r for screening, unspecifiedEp igastric painDorsalgia , unspecified 8 Connor Ottbrandyn. 500 [facility], [id number] [address] [place] [address], [address], [place]. tel:[phone] Psychotherap y, 45 Minutes With Patient [facility], [address] [place] [address], [address], [place] tel:[phone] [facility] Behavioral Health Anxiety disorder, unspecifiedCa nnabis use disorder, moderate 8 No Information OFFICE/OUTPA TIENT VISIT, [facility], [address] [place] [address], [facility], [place] tel:[phone] [facility] Adult Medicine PRE-OP (chief complaint) Encounter for screening for diabetes mellitusBody mass index (BMI) 45.0-49.9, adultPre-op evaluationLon g term (current) use of insulinType 2 diabetes mellitus without complication, with long-term current use of insulin 0 7- 8 Connor [facility]. 500 [facility], [id number] [address] [place] [address], [address], [place]. tel:[phone] OFFICE/OUTPA TIENT VISIT, [facility], [address] [place] [address], [facility], [place] tel:[phone] [facility] Adult Medicine Pre-OP #1 (chief complaint) Body mass index (BMI) 45.0-49.9, adultEncounte r for screening, unspecifiedPr e-op evaluationTyp e 2 diabetes mellitus with complication, with long-term current use of insulinLong term (current) use of insulinAnal fissure 0 [address] [facility]. 500 [facility], [id number] [address] [place] [address], [address], [place]. tel:[phone] Psychotherap y, 45 Minutes With Patient [facility], [address] [place] [address], [facility], [place] tel:[phone] [facility] Behavioral Health Cannabis use disorder, moderateGener alized Anxiety DisorderMajor depressive disorder, recurrent, moderate 0 2- 8 No Information Psychotherap y, 45 Minutes With Patient [facility], [address] [place] [address], [facility], [place] tel:[phone] [facility] Behavioral Health Cannabis use disorder, moderateGener alized Anxiety Disorder May-2 5 8 No Information OFFICE/OUTPA TIENT VISIT, [facility], [address] [place] [address], [address], [place] tel:[phone] [facility] Adult Medicine Cough (chief complaint) Body mass index (BMI) 45.0-49.9, adultPost-marti al dripCoughEnco unter for screening, unspecified Apr-2 3- 8 No Information Psych Dx Eval [facility], [address] [place] [address], [address], [place] tel:[phone] [facility] Behavioral Health Generalized Anxiety DisorderCanna bis use disorder, moderate 8 No Information OFFICE/OUTPA TIENT VISIT, [facility], [address] [place] [address], [address], [place] tel:[phone] [facility] Adult Medicine Hemorrhoids (chief complaint) Body mass index (BMI) 45.0-49.9, adultEncounte r for screening for diabetes mellitusBleed ing internal hemorrhoids 8 [facility]. [address] [place] [address], [id number] [address] [place] [address], [address], [place]. tel:[phone] Psychotherap y, 30 Minutes With Patient [facility], [address] [place] [address], [facility], [place] tel:[phone] [facility] Behavioral Health Anxiety disorder, unspecifiedCa nnabis dependence, uncomplicated 8 No Information OFFICE/OUTPA TIENT VISIT, [facility], [address] [place] [address], [address], [place] tel:[phone] [facility] Adult Medicine [place] Follow Up of diabetes (chief complaint)Fol low Up of hypertension (chief complaint) Body mass index (BMI) 40.0-44.9, adultEncounte r for screening, unspecifiedHy pertensionHea rtburnOther dorsalgiaHemo rrhoids 8 No Information OFFICE/OUTPA TIENT VISIT, [facility], [address] [place] [address], [facility], [place] tel:[phone] [facility] Adult Medicine [place] Ultrasound results (chief complaint)Fol low Up of Diabetes (chief complaint)Fol low Up of Hypertension (chief complaint) Body mass index (BMI) 45.0-49.9, adultEncounte r for screening for diabetes mellitusEncou nter for screening, unspecifiedEn counter for screening for other viral diseasesType 2 diabetes mellitus without complications Hypertension 7 No Information [facility], [address] [place] [address], [address], [place] tel:[phone] [facility] Dental Encounter for dental exam and cleaning w/o abnormal findings Devin Connors. [address] [place] [address], [id number] [address] [place] [address], [id number], [place]. tel:[phone] [facility], [address] [place] [address], [address], [place] tel:[phone] [facility] Dental Encounter for screening for dental disorders No Information OFFICE/OUTPA TIENT VISIT, [facility], [address] [place] [address], [address], [place] tel:[phone] [facility] Adult Medicine [place] Abdominal pain (chief complaint)Fol low Up of Diabetes (chief complaint)Fol low Up of Hypertension (chief complaint) Body mass index (BMI) 40.0-44.9, adultEncounte r for screening for diabetes mellitusUnspe cified abdominal painMorbid obesity due to excess calories No Information OFFICE/OUTPA TIENT VISIT, [facility], [address] [place] [address], [address], [place] tel:[phone] [facility] Adult Medicine [place] Follow Up of Diabetes (chief complaint)Fol low Up of Hypertension (chief complaint)Jamie k pain (chief complaint) Body mass index (BMI) 45.0-49.9, adultEncounte r for screening for diabetes mellitusUnspe cified abdominal painEssential (primary) hypertensionT ype 2 diabetes mellitus without complications No Information OFFICE/OUTPA TIENT VISIT, [facility], [address] [place] [address], [address], [place] tel:[phone] [facility] Adult Medicine elevated blood sugar (chief complaint) Type 2 diabetes mellitus without complications Encounter for screening for diabetes mellitusBody mass index (BMI) 45.0-49.9, adultEncounte r for screening, unspecified No Information OFFICE/OUTPA TIENT VISIT, [facility], [address] [place] [address], [address], [place] tel:[phone] [facility] Adult Medicine diabetes (chief complaint) Encounter for screening, unspecifiedEs sential (primary) hypertensionT ype 2 diabetes mellitus without complications No Information Psychotherap y, 45 Minutes With Patient [facility], [address] [place] [address], [address], [place] tel:[phone] [facility] Behavioral Health Anxiety disorder, unspecifiedCa nnabis use, unspecified, uncomplicated No Information Psychotherap y, 30 Minutes With Patient [facility], [address] [place] [address], [address], [place] tel:[phone] [facility] Behavioral Health Anxiety disorder, unspecifiedCa nnabis use, unspecified, uncomplicated No Information OFFICE/OUTPA TIENT VISIT, [facility], [address] [place] [address], [address], [place] tel:[phone] [facility] Adult Medicine restless leg (chief complaint) Encounter for screening for diabetes mellitusBody mass index (BMI) 45.0-49.9, adultRestless leg syndrome No Information Psychotherap y, 45 Minutes With Patient [facility], [address] [place] [address], [address], [place] tel:[phone] [facility] Behavioral Health Anxiety disorder, unspecifiedCa nnabis dependence, uncomplicated No Information OFFICE/OUTPA TIENT VISIT, [facility], [address] [place] [address], [address], [place] tel:[phone] [facility] Behavioral Health anxiety (chief complaint) Anxiety disorder, unspecifiedCa nnabis dependence, uncomplicated No Information OFFICE/OUTPA TIENT VISIT, [facility], [address] [place] [address], [address], [place] tel:[phone] [facility] Adult Medicine Rash/frequent urination (chief complaint) Body mass index (BMI) 45.0-49.9, adultEncounte r for screening for diabetes mellitusRashH yperglycemiaE ncounter for screening, unspecified No Information [facility], [address] [place] [address], [address], [place] tel:[phone] [facility] Dental Dental caries on pit and fissure surfc penetrat into dentin 6 No Information OFFICE/OUTPA TIENT VISIT, [facility], [address] [place] [address], [address], [place] tel:[phone] [facility] Behavioral Health anxiety (chief complaint) Anxiety disorder, unspecifiedCa nnabis dependence, uncomplicated Dec-3 0- 6 No Information [facility] 45 Minutes [facility], [address] [place] [address], [facility], [place] tel:[phone] [facility] Behavioral Health Anxiety disorder, unspecifiedCa nnabis dependence, uncomplicated 6 No Information OFFICE/OUTPA TIENT VISIT, [facility], [address] [place] [address], [facility], [place] tel:[phone] [facility] Behavioral Health anxiety (chief complaint) Anxiety disorder, unspecifiedCa nnabis use, unspecified, uncomplicated 6 No Information OFFICE/OUTPA TIENT VISIT, [facility], [address] [place] [address], [facility], [place] tel:[phone] [facility] Adult Medicine [place] Follow Up of Diabetes (chief complaint)Fol low Up of Hypertension (chief complaint)abd ominal pain (chief complaint) Encounter for immunizationE ncounter for screening for diabetes mellitusType 2 diabetes mellitus without complications HypertensionU nspecified abdominal pain 6 No Information OFFICE/OUTPA TIENT VISIT, [facility], [address] [place] [address], [address], [place] tel:[phone] [facility] Behavioral Health Substance abuse (chief complaint) Anxiety disorder, unspecifiedCa nnabis use, unspecified, uncomplicated Oct- 6 No Information OFFICE/OUTPA TIENT VISIT, [facility], [address] [place] [address], [address], [place] tel:[phone] [facility] Adult Medicine rash (chief complaint) Encounter for screening for diabetes mellitusBody mass index (BMI) 45.0-49.9, adultRash and nonspecific skin eruption Oct- 6 No Information OFFICE/OUTPA TIENT VISIT, [facility], [address] [place] [address], [address], [place] tel:[phone] [facility] Adult Medicine [place] Follow Up of Hypertension (chief complaint)Blo od work results (chief complaint) Type 2 diabetes mellitus without complications HypertensionB ack pain 6 No Information OFFICE/OUTPA TIENT VISIT, [facility], [address] [place] [address], [address], [place] tel:[phone] [facility] Behavioral Health anxiety (chief complaint) Anxiety disorder, unspecifiedCa nnabis use, unspecified, uncomplicated 6 No Information [facility] 45 Minutes [facility], [address] [place] [address], [address], [place] tel:[phone] [facility] Behavioral Health Anxiety disorder, unspecifiedCa nnabis dependence, uncomplicated 6 No Information OFFICE/OUTPA TIENT VISIT, [facility], [address] [place] [address], [address], [place] tel:[phone] [facility] Adult Medicine asthma (chief complaint)Tri age (chief complaint) Asthma exacerbation 6 No Information OFFICE/OUTPA TIENT VISIT, [facility], [address] [place] [address], [address], [place] tel:[phone] [facility] Behavioral Health Anxiety (chief complaint) Anxiety disorder, unspecified 6 No Information [facility] Family 45 Minutes [facility], [address] [place] [address], [address], [place] tel:[phone] [facility] Behavioral Health Anxiety disorder, unspecified 6 No Information OFFICE/OUTPA TIENT VISIT, [facility], [address] [place] [address], [address], [place] tel:[phone] [facility] Adult Medicine [place] Follow Up of Last visit (chief complaint) Unspecified abdominal pain 6 No Information OFFICE/OUTPA TIENT VISIT, [facility], [address] [place] [address], [address], [place] tel:[phone] [facility] Behavioral Health anxiety (chief complaint) Anxiety disorder, unspecifiedBi polar disord, crnt epsd depress, sev, w/o psych features 6 No Information [facility] Family 45 Minutes [facility], [address] [place], [address], [place] tel:[phone] [facility] [facility] Anxiety disorder, unspecifiedBi polar disord, crnt epsd depress, sev, w/o psych features June-0 2-201 6 No Information OFFICE/OUTPA TIENT VISIT, [facility], [address] [place], [address], [place] tel:[phone] [facility] Behavioral Health anxiety (chief complaint) Cannabis dependence, uncomplicated Major depressive disorder, recurrent, moderate Apr-1 3-201 6 No Information PsyTXPt And Family 60 Min [facility], [address] [place], [address], [place] tel:[phone] [facility] Behavioral Health Cannabis dependence, uncomplicated Major depressive disorder, recurrent, moderate Apr-1 1- 6 No Information PsyTxPt And Family 45 Minutes [facility], [address] [place] [address], [address], [place] tel:[phone] [facility] Behavioral Health anxiety (chief complaint) Bipolar disord, crnt epsd depress, sev, w/o psych featuresCanna bis use, unspecified, uncomplicated Mar-3 1- 6 No Information Psych Diag Eval W/Med Serv [facility], [address] [place], [address], [place] tel:[phone] [facility] Behavioral Health Initial Assessment (chief complaint) Bipolar disord, crnt epsd depress, sev, w/o psych featuresCanna bis use, unspecified, uncomplicated Mar-3 0-201 6 No Information PsyTxPt And Family 45 Minutes [facility], [address] [place], [address], [place] tel:[phone] [facility] Behavioral Health anxiety (chief complaint) Bipolar disord, crnt epsd depress, sev, w/o psych featuresCanna bis use, unspecified, uncomplicated Mar-2 3-201 6 No Information OFFICE/OUTPA TIENT VISIT, [facility], [address] [place], [address], [place] tel:[phone] [facility] Adult Medicine [place] MRI results (chief complaint) 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 Apr- 6 No Information PsyTxPt And Family 45 Minutes [facility], [address] [place], [address], [place] tel:[phone] [facility] Behavioral Health anxiety (chief complaint) Bipolar disord, crnt epsd depress, sev, w/o psych featuresCanna bis use, unspecified, uncomplicated Apr- 6 No Information PsyTxPt And Family 45 Minutes [facility], [address] [place], [address], [place] tel:[phone] [facility] Behavioral Health anxiety (chief complaint) Bipolar disord, crnt epsd depress, sev, w/o psych featuresCanna bis use, unspecified, uncomplicated 6 No Information PsyTXPt And Family 60 Min [facility], [address] [place], [address], [place] tel:[phone] [facility] Behavioral Health Bipolar disord, crnt epsd depress, sev, w/o psych featuresCanna bis use, unspecified, uncomplicated Mar- 6 No Information OFFICE/OUTPA TIENT VISIT, [facility], [address] [place], [address], [place] tel:[phone] [facility] Adult Medicine [place] Lower back pain (chief complaint)Med refill (chief complaint) Dorsalgia, unspecified 6 No Information OFFICE/OUTPA TIENT VISIT, [facility], [address] [place] [address], [address], [place] tel:[phone] [facility] Adult Medicine [place] Follow Up of Last visit (chief complaint) Other dorsalgiaUnsp ecified abdominal pain 6 No Information Psych Dx Eval [facility], [address] [place], [address], [place] tel:[phone] [facility] Behavioral Health Initial Assessment (chief complaint) Bipolar disord, crnt epsd depress, sev, w/o psych featuresCanna bis use, unspecified, uncomplicated 6 Helder Letriece. [address] [facility], [id number] [address] [place] [address], [id number], . tel:[phone] OFFICE/OUTPA TIENT VISIT, [facility], [address] [place] [address], [address], [place] tel:[phone] [facility] Adult Medicine Results (chief complaint)Jamie k pain (chief complaint) Pain in right knee 0 6 No Information [facility], [address] [place] [address], [address], [place] tel:[phone] [facility] Adult Medicine [place] Blood work results (chief complaint)Jamie k pain (chief complaint) PrediabetesOt her dorsalgia 5 No Information OFFICE/OUTPA TIENT VISIT, [facility], [address] [place] [address], [address], [place] tel:[phone] [facility] Adult Medicine Follow Up of Last visit (chief complaint)BP check (chief complaint) Morbidly overweightAnk le pain 5 No Information OFFICE/OUTPA TIENT VISIT, [facility], [address] [place] [address], [address], [place] tel:[phone] [facility] Adult Medicine [place] Follow Up of Last visit (chief complaint) abdominal painAnkle pain 5 No Information OFFICE/OUTPA TIENT VISIT, [facility], [address] [place] [address], [address], [place] tel:[phone] [facility] Adult Medicine [place] Follow Up of ER with pain (chief complaint) abdominal painBack pain 5 No Information OFFICE/OUTPA TIENT VISIT, [facility], [address] [place] [address], [address], [place] tel:[phone] [facility] Adult Medicine [place] Blood work results (chief complaint)X ray results (chief complaint) Liver and spleen enlargement - 5 No Information OFFICE/OUTPA TIENT VISIT, [facility], [address] [place] [address], [address], [place] tel:[phone] [facility] Adult Medicine [place] lab results (chief complaint) Prediabetic nonclinical diabetesVitam in D deficiencyAbn ormal function test of the liver Fe 5 No Information OFFICE/OUTPA TIENT VISIT, [facility], [address] [place] [address], [address], [place] tel:[phone] [facility] Adult Medicine [place] Med refill (chief complaint)Fol low Up of ER with stomach pain (chief complaint)jamie k pain (chief complaint)hyp ertension (chief complaint) abdominal painBack painHypertens ion 5 No Information OFFICE/OUTPA TIENT VISIT, [facility], [address] [place], [address], [place] tel:[phone] [facility] Adult [facility] [place] Med refill Tramadol (chief complaint) Issue of repeat prescriptions 4 No Information [facility], [address] [place] [address], [address], [place] tel:[phone] [facility] Behavioral Health Cannabis dependence, unspecified usePosttrauma tic stress disorderMajor depressive affective disorder, recurrent episode, moderate degree 4 No Information OFFICE/OUTPA TIENT VISIT, [facility], [address] [place] [address], [address], [place] tel:[phone] [facility] Adult Medicine [place] Back and neck pain (chief complaint)Med refill (chief complaint) Knee painBack painIssue of repeat prescriptions 4 No Information OFFICE/OUTPA TIENT VISIT, [facility], [address] [place] [address], [address], [place] tel:[phone] [facility] Adult Medicine [place] c/o right side lower back pain (chief complaint) Back pain 4 No Information OFFICE/OUTPA TIENT VISIT, [facility], [address] [place] [address], [address], [place] tel:[phone] [facility] Adult Medicine [place] Med refill (chief complaint) Unspecified internal derangement of kneeEncounter for administrativ e purposeIssue of repeat prescriptions 4 No Information Psy[facility]PT And Family 30 Minutes [facility], [address] [place] [address], [address], [place] tel:[phone] [facility] Behavioral Health AnxietyDrug-i nduced mood disorderPostt raumatic stress disorderMajor depressive affective disorder, recurrent episode, moderate degreeCannabi s dependence, unspecified use 3- 4 No Information OFFICE/OUTPA TIENT VISIT, EST [facility], [address] [place] [address], [address], [place] tel:[phone] [facility] Behavioral Health anxiety (chief complaint) AnxietyCannab is abuseDrug-ind uced mood disorderPostt raumatic stress disorderMajor depressive affective disorder, recurrent episode, moderate degree 0 1- 4 No Information [facility], [address] [place] [address], [address], [place] tel:[phone] [facility] Adult Medicine [place] Med refill (chief complaint)Vom iting (chief complaint) No Information 4 No Information PsyTXPT And Family 30 Minutes [facility], [address] [place] [address], [facility], [place] tel:[phone] [facility] Behavioral Health No Information 0 2 4 No Information Psych Diag Eval W/Med Serv [facility], [address] [place] [address], [address], [place] tel:[phone] [facility] Behavioral Health depression (chief complaint) Major depressive affective disorder, recurrent episode, moderate degreeCannabi s dependence, unspecified useAnxietyPos ttraumatic stress disorderDrug- induced mood disorder 4 No Information PsyTxPt And Family 45 Minutes [facility], [address] [place] [address], [address], [place] tel:[phone] [facility] Behavioral Health No Information 0 4 No Information [facility], [address] [place] [address], [address], [place] tel:[phone] [facility] Adult Medicine [place] No Information 0 4 No Information PsyTxPt And Family 45 Minutes [facility], [address] [place] [address], [address], [place] tel:[phone] [facility] Behavioral Health No Information Apr-2 4 No Information Psych Dx Eval [facility], [address] [place] [address], [address], [place] tel:[phone] [facility] Behavioral Health depression (chief complaint) Major depressive affective disorder, recurrent episode, moderate degreeCannabi s dependence, unspecified useAnxietyPos ttraumatic stress disorder 4 No Information OFFICE/OUTPA TIENT VISIT, [facility], [address] [place], [address], [place] tel:[phone] [facility] Adult Medicine [place] Med refill (chief complaint) GENERALIZED PAIN 4 No Information OFFICE/OUTPA TIENT VISIT, [facility], [address] [place], [address], [place] tel:[phone] [facility] Adult Medicine [place] Pain med refill (chief complaint) Backache 4 No Information OFFICE/OUTPA TIENT VISIT, [facility], [address] [place], [address], [place] tel:[phone] [facility] Adult Medicine [place] Pain medication (chief complaint) BackacheSpasm of muscleUnspeci fied internal derangement of knee 3 No Information OFFICE/OUTPA TIENT VISIT, [facility], [address] [place] [address], [address], [place] tel:[phone] [facility] Adult Medicine [place] back pain (chief complaint) BackacheSpasm of muscle 3 No Information PREV VISIT, [facility], AGE 18-39 [facility], [address] [place] [address], [address], [place] tel:[phone] [facility] Adult Medicine [place] Physical (chief complaint) EXAM EARS & HEARING NECRoutine Medical ExamInfluenza VaccineBackac heObesity, MorbidNEED FOR PROPHYLACTIC VACCINATION WITH COMBINED DIPHTHERIA-TE TANUS-PERTUSS IS (DTP) (DTAP) VACCINE 3 No Information [facility], [address] [place], [address], [place] tel:[phone] [facility] Dental No Information 3 Mika Cantor. [address] [facility], [id number] [address] [place] [address], [id number], [place]. tel:[phone] Referring Provider: Devaughn Brennan, [address] [facility] [id number] [facility], [place], [address] . tel:[phone] [facility], [address] [place] [address], [address], tel:[phone] Conversion URINARY TRACT INFECTIONHELI COBACTER PYLORI (H. PYLORI) INFECTION 0 No Information [facility], [address] [place] [address], [facility], [place] tel:[phone] [facility] Adult Medicine No Information 0 No Information [facility], [address] [place] [address], [facility], [place] tel:[phone] Conversion abdominal painESOPHAGEA L REFLUXexposed to venereal disease 0 No Information NEW Level 3 - Detailed [facility], [address] [place] [address], [facility], tel:[phone] [facility] Adult Medicine No Information 0 No [...] preservative free, 3 years and older Afluria [id number] administered Source: New Immu nization Record Influenza, seasonal, injectable administered Source: New Immuniza tion Record Influenza, seasonal, injectable administered Source: New Immuniza tion Record Tdap administered Source: New Imm unization Record flu (split) preservative magdi e, 3 yrs or older administered Source: New Immuniza tion Record Payers Payer name Insurance type Covered constitution party ID Authoranitha black(s) IAN Szymanski [id number] IAN Ramirez A [id number] IAN Ramirez A [id number] IAN Ramirez A [id number] IAN Szymanski [id number] Social History Type Description Quantity Date Captured Comments Sex Female Smoking Status No Information Sexual Orientation Straight or heterosexual Gender Identity Female Chief Complaint And Reason For Visit No Information Reason For Referral Reason For Referral No Information Plan Of Treatment Date Type Action Status Goal Dietary management education , guidance, and [...] cessation counseling completed Referral Ordered: Referrals: Location: [facility] Podiatry ordered Referral Ordered: Referrals: Home [...] participants): Patient, Dr. Ryan@ UTI and Kidney Sjrbar65/29/20 - was treated for UTI and kidney [...] No med changes for now. Advised to Hkwxy4ka post meal sugars and not random. May consider decreasing Lantus. Check A1C.06/16/17 - CBG 150. Labs A1C 5.9. Hold Metformin the morning of hkdmfij47/26/18 - POC A1C 6.603/07/29 - FS 227. [...] stress. will decrease Tresiba to 44 units@ Yqayjfghkbpb99/29/20 - has hard BM every 2-3 days and over last month having blood with first BM. Not very painful. She has hx of fissure with surgery to repair it. A/P = Chronic constipation. Start Linzess. 145mcg. F/u in 3 weeks09/16/19 - with Linzess, having daily BMs and not straining.@ Breast octqqcskwsupeq22/29/20 - noted on both breasts on CT scan. Will do diagnostic Mammogram. f/u in 3 weeks09/16/19 - Mammo on 06/22 was normal. @ Lung /29/20 - noted on CT of abdomen. No Cough or increased SOB form baseline. Will do CXR f/u in 3 weeks.09/16/19 - x-ray was normal @ Lymphadentitis?12/25/18 - Recent Strep throat and given PCN but still has sore throat. Augmentin x 5 day for lymphadentitis?@ Afgzpsqjp00/13/19 - takes a few Fioricet Plus Excedrin to abort headaches. Headaches occr multiple times a week and taking abortive meds every1-2 days. Poor sleep. A/P = Amitriptyline HS. aim to reduce abortive med use. @ Chronic Low back pain with Radicular symptoms + Large Nsmtlc61/07/18 - reports hx of low back pain with pain traveling down back of leg to feet. Taking lyrica 50mg BID. A/P = Need to review imaging (pt reports disk problems) and consider titrating Kppgqk65/21/18 - MRI showing L4-L5 Degenerative Changes. Moderate Canal Stenosis and Neural foraminal stenosis. Increase to 150mg lyrica. M.M. provider info given.04/15/18 - Pain i still very bad. Radiates into legs with numbness. Unable to stand or walk for too long without pain. No saddle anesthesias. A/p = Breast Surgeon Koufqrmq44/10/19 - Back pain stills severe. Appt in [...] without medication. Will get BP machine from [facility] [employer] Lnostbps62/13/19 - 117/77. @ Central Abdominal Pain04/15/18 - For along time has episode central abdominal pain. Noticed bulge in center of stomach. Was told she has hernia in the past. Has central wall defect on exam A/p = Likely Symptomatic abdominal hernia. Will refer to gen surg in near future.@ Dizziness - light hpdateqef68/23//18 other provider - Patient presents to the [...] imodium RX and reviewing low FODMAP diet@ Wtvbvgy25/03/18 - She went to bariatric seminar, but there was a mixup with getting a bariatric appt. Has chronic back pain, Right Knee OA HTN, DM, Fatty Liver. A/P Will refer again in the future.06/30/17 - almost completed [facility] program but there was a problem with 2 missed nutrition appt (patient tells me it was the programs fault due to scheduling). She went to but the wrong referral was sent to them.@ Anal Vtukvrf84/03/18 - Patient having surgery to sphincter on [...] No med changes for now. Advised to Hasod8qk post meal sugars and not random. May consider decreasing Lantus. Check A1C.06/16/17 - CBG 150. Labs A1C 5.9. Hold Metformin the morning of efofgnk79/26/18 - POC A1C 6.603/07/29 - FS 227. [...] 60 units. Start Ozempic 0.5mg weekly. @ Xzqknfamhobw76/29/20 - has hard BM every 2-3 days and over last month having blood with first BM. Not very painful. She has hx of fissure with surgery to repair it. A/P = Chronic constipation. Start Linzess. 145mcg. F/u in 3 weeks@ Breast oyyzwyitetfdry03/29/20 - noted on both breasts on CT scan. Will do diagnostic Mammogram. f/u in 3 weeks@ Lung /29/20 - noted on CT of abdomen. No Cough or increased SOB form baseline. Will do CXR f/u in 3 weeks.@ Lymphadentitis?12/25/18 - Recent Strep throat and given PCN but still has sore throat. Augmentin x 5 day for lymphadentitis?@ Ehlxqkrwp60/13/19 - takes a few Fioricet Plus Excedrin to abort headaches. Headaches occr multiple times a week and taking abortive meds every1-2 days. Poor sleep. A/P = Amitriptyline HS. aim to reduce abortive med use. @ Chronic Low back pain with Radicular symptoms + Large Mjyiod20/07/18 - reports hx of low back pain with pain traveling down back of leg to feet. Taking lyrica 50mg BID. A/P = Need to review imaging (pt reports disk problems) and consider titrating Uiaqip39/21/18 - MRI showing L4-L5 Degenerative Changes. Moderate Canal Stenosis and Neural foraminal stenosis. Increase to 150mg lyrica. M.M. provider info given.04/15/18 - Pain i still very bad. Radiates into legs with numbness. Unable to stand or walk for too long without pain. No saddle anesthesias. A/p = Breast Surgeon Szosnsai17/10/19 - Back pain stills severe. Appt in [...] without medication. Will get BP machine from [facility] Amgodmwa95/13/19 - 117/77. @ Central Abdominal Pain04/15/18 - For along time has episode central abdominal pain. Noticed bulge in center of stomach. Was told she has hernia in the past. Has central wall defect on exam A/p = Likely Symptomatic abdominal hernia. Will refer to gen surg in near future.@ Dizziness - light unebyvsgw63/23//18 other provider - Patient presents to the [...] imodium RX and reviewing low FODMAP diet@ Egrqyqk63/03/18 - She went to bariatric seminar, but there was a mixup with getting a bariatric appt. Has chronic back pain, Right Knee OA HTN, DM, Fatty Liver. A/P Will refer again in the future.06/30/17 - almost completed [facility] program but there was a problem with 2 missed nutrition appt (patient tells me it was the programs fault due to scheduling). She went to but the wrong referral was sent to them.@ Anal Vnkimfr07/03/18 - Patient having surgery to sphincter on [...] throat. Augmentin x 5 day for lymphadentitis?@ Tpktockcd10/13/19 - takes a few Fioricet Plus Excedrin to abort headaches. Headaches occr multiple times a week and taking abortive meds every1-2 days. Poor sleep. A/P = Amitriptyline HS. aim to reduce abortive med use. @ Chronic Low back pain with Radicular symptoms + Large Svyjfw88/07/18 - reports hx of low back pain with pain traveling down back of leg to feet. Taking lyrica 50mg BID. A/P = Need to review imaging (pt reports disk problems) and consider titrating Xnjjrm42/21/18 - MRI showing L4-L5 Degenerative Changes. Moderate Canal Stenosis and Neural foraminal stenosis. Increase to 150mg lyrica. M.M. provider info given.04/15/18 - Pain i still very bad. Radiates into legs with numbness. Unable to stand or walk for too long without pain. No saddle anesthesias. A/p = Breast Surgeon Yrssbghg48/10/19 - Back pain stills severe. Appt in [...] No med changes for now. Advised to Wppxj9ke post meal sugars and not random. May consider decreasing Lantus. Check A1C.06/16/17 - CBG 150. Labs A1C 5.9. Hold Metformin the morning of keqbsqw28/26/18 - POC A1C 6.603 - FS 227. [...] without medication. Will get BP machine from [facility] Zhgkmgzv23/13/19 - 117/77. @ Central Abdominal Pain04/15/18 - For along time has episode central abdominal pain. Noticed bulge in center of stomach. Was told she has hernia in the past. Has central wall defect on exam A/p = Likely Symptomatic abdominal hernia. Will refer to gen surg in near future.@ Dizziness - light amkpwscei83/23//18 other provider - Patient presents to the [...] imodium RX and reviewing low FODMAP diet@ Njsgmct53/03/18 - She went to bariatric seminar, but there was a mixup with getting a bariatric appt. Has chronic back pain, Right Knee OA HTN, DM, Fatty Liver. A/P Will refer again in the future.06/30/17 - almost completed [facility] but there was a problem with 2 missed nutrition appt (patient tells me it was the programs fault due to scheduling). She went to but the wrong referral was sent to them.@ Anal Nxybqun31/03/18 - Patient having surgery to sphincter on [...] right side06/10/18 - was in [facility] in [facility]. for Sialadenitis that started the previous friday. Given Augmentin and advised to use sour candy and lemon to help. Pain has greatly improved but not back to baseline yet. Advised pt to complete Abx and c/w sour and lemon. routine F/u @ Hospital F/u f or Sialadenitis on right side06/10/18 - was in EN in [facility]. for Sialadenitis that started the previous friday. Given Augmentin and advised to use sour candy and lemon to help. Pain has greatly improved but not back to baseline yet. Advised pt to complete Abx and c/w sour and lemon.@ Chronic Low back pain with Radicular symptoms + Large Bhodmp40/07/18 - reports hx of low back pain with pain traveling down back of leg to feet. Taking lyrica 50mg BID. A/P = Need to review imaging (pt reports disk problems) and consider titrating Xubcth34/21/18 - MRI showing L4-L5 Degenerative Changes. Moderate Canal Stenosis and Neural foraminal stenosis. Increase to 150mg lyrica. M.M. provider info given.04/15/18 - Pain i still very bad. Radiates into legs with numbness. Unable to stand or walk for too long without pain. No saddle anesthesias. A/p = Breast Surgeon Lmofcnjl74/10/19 - Back pain stills severe. Appt in [...] without medication. Will get BP machine from [facility]@ DM Type - CBG 170. Fasting 80-90. Evening CBG around 170-190. Last a1c 5.9 (02/2017). Patient complaint with medications as prescribed. A/P = Well Controlled DM. No med changes for now. Advised to Iwmxz5ql post meal sugars and not random. May consider decreasing Lantus. Check A1C.06/16/17 - CBG 150. Labs A1C 5.9. Hold Metformin the morning of owooqzj20/26/18 - POC A1C 6.603/07/29 - FS 227. [...] C/w metformin. New Glucometer.@ Dizziness - light womlhpwup60/23//18 other provider - Patient presents to the [...] imodium RX and reviewing low FODMAP diet@ Mznxtfa09/03/18 - She went to bariatric seminar, but there was a mixup with getting a bariatric appt. Has chronic back pain, Right Knee OA HTN, DM, Fatty Liver. A/P Will refer again in the future.06/30/17 - almost completed [facility] but there was a problem with 2 missed nutrition appt (patient tells me it was the programs fault due to scheduling). 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 Taking lyrica 50mg BID. A/P = Need to review imaging (pt reports disk problems) and consider titrating Omnfaz17/21/18 - MRI showing L4-L5 Degenerative Changes. Moderate [...] without medication. Will get BP machine from [facility]@ DM Type - CBG 170. Fasting 80-90. Evening CBG around 170-190. Last a1c 5.9 (02/2017). Patient complaint with medications as prescribed. A/P = Well Controlled DM. No med changes for now. Advised to Wpuva5ts post meal sugars and not random. May consider decreasing Lantus. Check A1C.06/16/17 - CBG 150. Labs A1C 5.9. Hold Metformin the morning of gwowfjt22/26/18 - POC A1C 6.603/07/29 - FS 227. [...] C/w metformin. New Glucometer.@ Dizziness - light /23//18 other provider - Patient presents to the [...] imodium RX and reviewing low FODMAP diet@ Yoexcrz15/03/18 - She went to bariatric seminar, but there was a mixup with getting a bariatric appt. Has chronic back pain, Right Knee OA HTN, DM, Fatty Liver. A/P Will refer again in the future.06/30/17 - almost completed [facility] program but there was a problem with 2 missed nutrition appt (patient tells me it was the programs fault due to scheduling). She went to but the wrong referral was sent to them.@ Anal Ydhmacg39/03/18 - Patient having surgery to sphincter on [...] Arm Pain @ Dizziness - li ght ytxxauxgz73/23//18 other provider - Patient presents to the [...] No med changes for now. Advised to Vnuyp7mc post meal sugars and not random. May consider decreasing Lantus. Check A1C.06/16/17 - CBG 150. Labs A1C 5.9. Hold Metformin the morning of niiovkh27/21/18 - CBG 138. 11/05/17 - FS A1C 6.6@ Chronic Low back pain with Radicular askzwiru53/07/18 - reports hx of low back pain with pain traveling down back of leg to feet. Taking lyrica 50mg BID. A/P Need to review imaging (pt reports disk problems) and consider titrating Hrzpyi81/21/18 - L4-L5 Degenerative Changes. Moderate Canal Stenosis [...] imodium RX and reviewing low FODMAP diet@ Fuzdgfo00/03/18 - She went to bariatric seminar, but there was a mixup with getting a bariatric appt. Has chronic back pain, Right Knee OA HTN, DM, Fatty Liver. A/P Will refer again in the future.06/30/17 - almost completed [facility] program but there was a problem with 2 missed nutrition appt (patient tells me it was the programs fault due to scheduling). She went to but the wrong referral was sent to them.@ Anal Oeokjdn88/03/18 - Patient having surgery to sphincter on [...] outside of the home.EKG WNL in [facility] negative TRIAGE 10/02/2017 @ 4:3 0 PMPt presenting to AM hotel or motel receptionist with complaints of dizziness. 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 Taking lyrica 50mg BID. A/P Need to review imaging (pt reports disk problems) and consider titrating Joekor27/21/18 - L4-L5 Degenerative Changes. Moderate Canal Stenosis [...] imodium RX and reviewing low FODMAP diet@ Rguycgl86/03/18 - She went to bariatric seminar, but there was a mixup with getting a bariatric appt. Has chronic back pain, Right Knee OA HTN, DM, Fatty Liver. A/P Will refer again in the future.06/30/17 - almost completed [facility] program but there was a problem with [...] No med changes for now. Advised to Nhgze8ln post meal sugars and not random. May consider decreasing Lantus. Check A1C.06/16/17 - CBG 150. Labs A1C 5.9. Hold Metformin the morning of mgzodsv47/21/18 - CBG 138. @ Anal Vwibtrc85/03/18 - Patient having surgery to sphincter on 06/19/17. @ Histories A/P: Patient is low/moderate risk for a low Risk procedure. She can proceed with surgery as planned and is medically optimized. Her labs are within normal limits for surgery. Hold Metformin Morning of surgery.Procedure: Lateral Internal Sphincterotomy @ [facility] with Dr. Josh Singleton, on 06/19/17Anesthesia [...] Morning of surgery.Procedure: Lateral Internal Sphincterotomy @ [facility] with Dr. Josh Singleton, on 06/19/17Anesthesia [...] pain (would consider medical Marijuana @ Anal Ufjynyh06/03/18 - Patient having surgery to sphincter on 06/19/17. @ DM Type - CBG 170. Fasting 80-90. Evening CBG around 170-190. Last a1c 5.9 (02/2017). Patient complaint with medications as prescribed. A/P = Well Controlled DM. No med changes for now. Advised to Qremv7xc post meal sugars and not random. May consider decreasing Lantus. Check A1C.06/16/17 - CBG 150. Labs A1C 5.9. Hold Metformin the morning of surgery@ Chronic Low back pain with Radicular btzwnote00/07/18 - reports hx of low back pain with pain traveling down back of leg to feet. Taking lyrica 50mg BID. A/P Need to review imaging (pt reports disk problems) and consider titrating Lyrica@ Rhscwdl91/03/18 - She went to bariatric seminar, but [...] medically optimized. Procedure: Lateral Internal Sphincterotomy @ [facility] with Dr. Josh Singleton, on 06/19/17Anesthesia [...] pain (would consider medical Marijuana @ Anal Hlvmwpl08/03/18 - Patient having surgery to sphincter on 06/19/17. @ DM Type - CBG 170. Fasting 80-90. Evening CBG around 170-190. Last a1c 5.9 (02/2017). Patient complaint with medications as prescribed. A/P = Well Controlled DM. No med changes for now. Advised to Zuxod4re post meal sugars and not random. May consider decreasing Lantus. Check A1C.@ Mycskax70/03/18 - She went to bariatric seminar, but [...] patient did not have abdominal MRI done. Follow Up of Hypertension Pertin ent negatives include chest pain, claudication, confusion, diaphoresis, dyspnea, epistaxis, fatigue, headache, hematuria, irregular heartbeat/palpitations, nausea, tinnitus, transient weakness, tremor, visual disturbances and vomiting. Additional information: BP 123/85 Back pain Additional infor candice: her back is chronic , has been evaluated and surgery is needed which she is not ready for. Follow Up of Diabetes Comorbidit y: Hypertension. Pertinent negatives include blurred vision, burning of extremities, chest pain, constant hunger, dental disease, diarrhea, dysesthesias, dyspnea, foot ulcers, frequent infections, frequent urination, heartburn, hypoglycemic episodes, increased fatigue, nocturia, polydipsia, slow healing wounds / sores, weight gain and weight loss. Additional information: uncontrol glucose. elevated blood sugar She was see n at [facility] on Apr 26. Her hemoglobin [...] and she is breathing more comfortably, notified hotel or motel receptionist that this patient has to be [...] patient and time was alllowed for questions Follow Up of Last visit x-ray of [...] consistent with fatty change. Enlarg liver measuring 25.9bal593gaa16.1; Splenomegaly measuring 15.8 cm in greatest dimension lab results lab work were di scussed with patient abnormal results:A1C 6.2Vit D 19ALT 70Alkaline phosphatase 123AST 61Patient was seen in the eR toward the end of Feb. because her right upper quandrant pain had increase.Ultrasound shows an enlarge spleen Med refill hypertension Additional infor mation: BP 134/98 - will start on lisinopril 5mg daily back pain Additional infor mation: complaining of cervical and lumbar spine pain - chronic. Cervical spine pain at times radiates down her arms. Follow Up of ER with stomach jaskaran n Was seen in the ER for epigastric last night. Started on pepsic. Still feeling the pain with little results Med refill Tramadol Pt in for me [...] pain. Has 1st PT appt 01/11. Physical [facility] medical gavin little at [facility]: 2009. Moved to [place]. Returned to [place] 6 months ago. Is living in [place].Notes untreated depression, anxiety and high blood pressure [...] brace until recently.Health Maintenance1) Pap: ) dental: 38911) eye: 05/2012 Functional Status Date Functional Assessmen [...] to Type 2 diabetes mellitus without complications Dietary management e ducation, guidance, and counseling [...] PCP as planned. Related to Post-nasal drip Dietary management e ducation, guidance, and counseling Related to Body mass index (BMI) 45.0-49.9, adult Weight monitoring Related to Bod y mass index (BMI) 45.0-49.9, adult Referral to [...] 2:45 pm to see Dalia in the [place] Office.??? Start Lantus 20 units every evening [...] electronically to your pharmacy ([facility]). ??? Return to the Clinic if [...]
--- OUTSIDE RECORDS SUMMARY | 2024-06-16 18:05 | XMS_ITS ---
Author Organization [employer] Address [address] [place] [address] 7t [place] [address] Care Team Providers Care Credit Union Examiner Name Role Phone Angelique Bolaños CORRECTIONAL PROGRAM SPECIALIST Primary Care Provider [phone] Vera Mcgovern PharmD Unavailable [phone] [facility] Complex Status:Enrolled (Active) Start date:04/29/2024 Enrollment date:04/29/2024 Enrollment reason:ADT Feed Overview ED- Pt went to [facility] ED on 04/28. Case Team Name Relationship Phone Lauren Licea (Responsible Staff) [phone] Continued Care and Services Coordination
--- OUTSIDE RECORDS SUMMARY | 2024-06-16 18:05 | XMS_ITS | Encounter Summary ---
Author Organization [employer] Address [address] [facility] 7t [place] [address] Care Team Providers Care Chief Business Development Officer Name Role Phone Angelique Bolaños GROUND WORKER Primary Care Provider [phone] Vera Mcgovern PharmD Unavailable [phone] Reason for Visit * Reason Comments Med Refill Encounter Details Date Type Department Care Team (Late st Contact Info) Description 06/04/2024 Refill [facility] MEDICINE [address] [place] [address] Gretchen Romaon MD [address] [place] [address] Type 2 diabetes mellitus with hypoglycemia without coma, with long-term current use of insulin ([facility]); Type 2 diabetes mellitus with hyperglycemia, with long-term current use of insulin ([facility]) Social History Tobacco Use Types [...] Description 06/24/2024 3:30 PM EDT Office Visit [facility] OPTOMETRY [address] [place] [address] [place], Anaid, OD [address] [place] [address] 07/15/2024 11:30 AM EDT Medication Management [facility]INE [address] [place] [address] Sophie Zapata PharmD [address] [place] [address] documented as of this encounter Goals Goal Patient Goal Type Associated Problems Recent Progress Patient-Stated? Author Hemoglobin A1c < 7 Result Component 8.1( 10:29 AM EDT) No Vera Bean PharmD Record your blood sugar as directed Result Component No Vera Bean PharmD documented as of this encounter Visit Diagnoses Diagnosis Type 2 diabetes mellitus with hypoglycemia without coma, with long-term current use of insulin (CMS/HCC) Type 2 diabetes mellitus with hyperglycemia, with long-term current use of insulin (CMS/[facility]) documented in this encounter Additional Health Concerns Assessment Noted Time PHQ-9 Depression Total Score: 0 02/17/19 25 11:42 AM EST documented as of this encounter Care Teams Chief Business Development Officer Relationship Specialty Start Date End Date Angelique Bolaños FNP [address] [place] [address] PCP - General Family Medicine 11/08/22 Vera Mcgovern PharmD [address] [place] [address] Pharmacist Internal Medicine 08/20/23 documented as of this encounter
--- OUTSIDE RECORDS SUMMARY | 2024-06-16 18:05 | XMS_ITS | Encounter Summary ---
Author Organization [employer] Address [address] [facility] 7t [place] [address] Care Team Providers Care Plumbing Engineering Draftsperson Name Role Phone Jen Sousa MANAGER CARDIAC Primary Care Provider [phone] River RougeAngelique MANAGER CARDIAC Primary Care Provider [phone] Vera Mcgovern PharmD Unavailable Reason for Visit * Reason Comments Med Refill Encounter Details Date Type Department Care Team ([facility] st Contact Info) Description 10/15/2022 Refill [facility] MED & PEDS [address] [place], [place] [phone] Jen Sousa MANAGER CARDIAC [address] [place], [place] [phone] Chronic midline low back pain with sciatica, [...] 06/24/2024 3:30 PM EDT Office Visit [facility] OPTOMETRY [address] [place] [address] Wilton, Anaid, OD [address] [place] [address] 07/15/2024 11:30 AM EDT Medication Management [facility] MEDICINE [address] [place] [address] Sophie Zapata, Maddy [address] [place] [address] documented as of this encounter Visit Diagnoses Diagnosis Chronic midline low back pain with sciatica, sciatica laterality unspecified documented in this encounter Care Teams Plumbing Engineering Draftsperson Relationship Specialty Start Date End Date Jen Sousa FNP [address] [place] [address] PCP - General Family Medicine 10/04/21 11/07/22 River RougeAngelique FNP [address] [place] [address] PCP - General Family Medicine 11/08/22 Vera Mcgovern PharmD [address] [place] [address] Pharmacist Internal Medicine 08/20/23 documented as of this encounter
--- OUTSIDE RECORDS SUMMARY | 2024-06-16 18:05 | XMS_ITS | Encounter Summary ---
Author Organization [employer] Address [address] [facility] 7t [place] [address] Care Team Providers Care Sprinkler Truck Driver Name Role Phone Jen Sousa [facility] Primary Care Provider [phone] Angelique Bolaños CERTIFIED MARINE MECHANIC Primary Care Provider [phone] Vera Mcgovern PharmD Unavailable Encounter Details Date Type Department Care Team (Late st Contact Info) Description 01/25/2022 Orders Only [facility] MEDICINE [address] [place] [address] Martha Santana, RN Social History Tobacco Use Types Packs/Day Years [...] Office Visit [facility] OPTOMETRY [address] [place] [address] Anaid Núñez, OD [address] [place] [address] 07/15/2024 11:30 AM EDT Medication Management [facility] MED[facility] [address] [place] [address] Sophie Zapata, PharmD [address] [place] [address] documented as of this encounter Visit Diagnoses Not on filedocumented in this encounter Care Teams Sprinkler Truck Driver Relationship Specialty Start Date End Date Jen Sousa FNP [address] [place] [address] PCP - General Family Medicine 10/04/21 11/07/22 TustinAngelique FNP [address] [place] [address] PCP - General Family Medicine 11/08/22 Vera Mcgovern, JessicaD [address] [place] [address] Pharmacist Internal Medicine 08/20/23 documented as of this encounter
--- OUTSIDE RECORDS SUMMARY | 2024-06-16 18:05 | XMS_ITS | Clinical Summary ---
Author Organization [facility] Address [address] [place] [address] [place] [address] Phone Care Team Providers Care Vendor Management Specialist Name Role Phone [facility] Primary Care Provider [phone] Allergies Active Allergy Reactions Criticality Noted Date Comments Acetaminophen Nausea High 05/06/2024 Medications albuterol HFA (PROVENTIL HFA;VENTOLIN HFA) 108 (90 Base) MCG/ACT inhaler Inhale 2 puffs every 4 hours 2 Active Alcohol Swabs (Alcohol Prep) 70 % pads USE 1 TO CLEAN SKIN BEFORE INJECTION DIRECTED 5 Active Blood Glucose Monitoring Suppl (FreeStyle Lite) w/Device kit 1 each in the morning and 1 each at noon and 1 each in the evening. 3 Active Blood Pressure kit USE DIRECTED 4 Active budesonide-for moterol (SYMBICORT) 80-4.5 MCG/ACT inhaler INHALE 2 PUFFS BY MOUTH TWICE DAILY IN THE MORNING AND AT BEDTIME. MAY ALSO USE FOR SHORTNESS OF BREATH. RINSE MOUTH AFTER USING. 5 Active busPIRone (BUSPAR) 10 MG tablet TAKE 1 TABLET BY MOUTH THREE TIMES DAILY IN THE MORNING, EVENING, AND BEDTIME FOR ANXIETY 5 Active cyclobenzaprin e (FLEXERIL) 5 MG tablet Take 5 mg by mouth 3 times daily as needed 5 Active Dulaglutide (Trulicity) 4.5 MG/0.5ML solution auto-injector Inject 4.5 mg under the skin 5 Active DULoxetine (CYMBALTA) [address] capsule Take 1 capsule by mouth 5 Active ferrous sulfate 325 (65 Fe) MG tablet TAKE 1 TABLET BY MOUTH EVERY OTHER DAY IN THE MORNING 4 Active insulin degludec (Tresiba FlexTouch) 200 UNIT/ML injection INJECT 40 UNITS SUBCUTANEOUSLY TWICE DAILY DIRECTED 5 Active lisinopril 2.5 MG tablet Take 2.5 mg by mouth every morning 5 Active metFORMIN XR (GLUCOPHAGE-XR ) 500 MG 24 hr tablet TAKE 2 TABLETS BY MOUTH TWICE DAILY IN THE MORNING AND EVENING 5 Active Naloxone HCl 4 MG/0.1ML liquid Administer 0.1 mL into affected nostril(s) 1 Active pantoprazole (PROTONIX) 40 MG EC tablet Take 40 mg by mouth every morning 5 Active spironolactone (Aldactone) 25 MG tablet Take 1 tablet (25 mg total) by mouth 1 (one) time each day 90 tablet 3 5 026 Active Active Problems Problem Noted Date Diagnosed Date [...] pain 01/19/2022 Overview (05/05/2024): Previously followed by [facility] pain mngmt. Lost to follow up. Rx'd tramadol by previous PCP which was discontinued due to lack of compliance with SHORT ORDER COOK agreement. Pt reports widespread chronic pain. Found tramadol minimally helpful. Hx of PT without improvement. Generalized abdominal pain 01/19/2022 Other cirrhosis of liver 01/19/2022 Overview (05/05/2024): - Followed by [facility] - Abdominal ultrasound 02/14/23 w/ enlarged [...] Visit [facility] [address] [place] [address] Alejandro Brice MD Hypokalemia (Primary Dx) from [...] Visit [facility] [address] [place] [place] [address] Alejandro Brice MD [address] [facility] [address] [place] [address] Health Maintenance Due Date Last Done Comments Hepatitis B Vaccine (1 of 3 - 19+ 3-dose series) 1993 03/07/2023, 01/29/2022, 08/10/2021 Pneumococcal Vaccine: Peds ( 0 to 5 Years) and At-Risk Patients (6 to 49 Years) (2 of 2 - PCV) 04/29/2007 04/28/2006 Colorectal Cancer Screening: Annual FOBT 10/08/2023 Colorectal Cancer Screening: Colonoscopy 10/08/2023 Colorectal Cancer Screening: Sigmoidoscopy 10/08/2023 Diabetes: Ophthalmology Exam 02/23/2024 Diabetes: Pedal Pulse Checked 02/23/2024 Diabetes: Sensory Foot Exam 02/23/2024 Diabetes: Visual Foot Exam 02/23/2024 Diabetes: Hemoglobin A1C 05/18/2024 02/18/2024 Influenza Vaccine (Season Ended) 2024 01/30/20, 01/24/2006 Insurance * Guarantor: Billie Martínez Account Type Relation to Patient Date of Phone Billing Address Personal/Family Self 1975 [address] [facility] [address] [place] [address] [place] Care Teams Vendor Management Specialist Relationship Specialty Start Date End Date [facility] [address] [place] [address] PCP - General 02/23/24
--- OUTSIDE RECORDS SUMMARY | 2024-06-16 18:05 | XMS_ITS | Encounter Summary ---
Author Organization [employer] Address [address] [facility] 7t [place] [address] Care Team Providers Care Commercial Lending Relationship Manager Name Role Phone Angelique Bolaños QUICK SERVICE TECHNICIAN Primary Care Provider [phone] Vera Mcgovern PharmD Unavailable [phone] Reason for Visit * Reason Onset Date Comments Chart Prep 06/15/2024 Encounter Details Date Type Department Care Team ([facility] st Contact Info) Description 06/15/2024 Telephone [facility] MEDICINE [address] [place] [address] Bernadine Rodriguez MD [address] [place] [address] Chart Prep Social History Tobacco Use Types Packs/Day Years [...] the past 12 months, has t he [place], gas, oil or water [employer] threatened to shut off services in your [...] encounter Miscellaneous Notes * Telephone Encounter - Yvette Darden [place] - 06/15/2024 1:34 PM EDT Chart Prep Labs: done Labs Results[place] Images: done MRI Abdomen/CT Abd/Pelvis Report([facility]) Referrals: no show Podiatry-Dr. Gao Vaccines due: Covid, Flu, PCV20, and Hep A Screenings: colonoscopy, mammogram, pap smear, and foot exam Overdue care gaps: A1c, Glucose, SBIRT, ANGELA-7, Oral health screening, and Disability screen documented in this encounter Plan of Treatment Upcoming Encounters Date Type Department Care Team (Late st Contact Info) Description 06/24/2024 3:30 PM EDT Office Visit [facility] OPTOMETRY [address] [place], [place] [phone] [place], Anaid, OD [address] [place], [place] [phone] 07/15/2024 11:30 AM EDT Medication Management [facility] MEDICINE [address] [place] [address] Sophie Zapata PharmD [address] [place] [address] documented as of this encounter Goals Goal Patient Goal Type Associated Problems Recent Progress Patient-Stated? Author Hemoglobin A1c < 7 Result Component 8.1( 10:29 AM EDT) No Vera Bean PharmJuan Record your blood sugar as directed Result Component No Vera Bean PharmD documented as of this encounter Visit Diagnoses Not on filedocumented in this encounter Additional Health Concerns Assessment Noted Time PHQ-9 Depression Total Score: 0 02/17/19 25 11:42 AM EST documented as of this encounter Care Teams Commercial Lending Relationship Manager Relationship Specialty Start Date End Date Angelique Bolaños FNP [address] [place] [address] PCP - General Family Medicine 11/08/22 Vera Mcgovern PharmD [address] [place] [address] Pharmacist Internal Medicine 08/20/23 documented as of this encounter
--- OUTSIDE RECORDS SUMMARY | 2024-06-16 18:05 | XMS_ITS | Encounter Summary ---
Author Organization [employer] Address [address] [facility] 7t [place] [address] Care Team Providers Care Tow Picker Name Role Phone Mami, [facility] Primary Care Provider [phone] Vera Mcgovern PharmD Unavailable [phone] Reason for Visit * Reason Onset Date Comments Pt1 06/01/2024 Encounter Details Date Type Department Care Team ([facility] st Contact Info) Description 06/01/2024 Telephone [facility] MEDICINE [address] [place], [place] [phone] [facility] [address] [place] [address] Pt1 Social History Tobacco Use Types Packs/Day Years [...] * Telephone Encounter - Antoinette Arechiga - 06/01/2024 12:49 PM EDT Patient calling requesting PT1 Home Address verified: Y/N: Yes Provider name or facility name: [facility] Address: [address] [place] [address] 3rd [place], [place] [address] Escort needed: Y/N: Yes Do you have a wheelchair: Y/N: No If yes- Manual or electric: n/a Visits: 1x a month Patient calling requesting PT1 Home Address verified: Y/N: Yes Provider name or facility name: [facility] Facility Address: [address] [place] [address] Escort needed: Y/N: Yes Do you have a wheelchair: Y/N: No If yes- Manual or electric: n/a Visits: 1x 3 month documented in this encounter Plan of Treatment Upcoming Encounters Date Type Department Care Team (Late st Contact Info) Description 06/24/2024 3:30 PM EDT Office Visit [facility] OPTOMETRY [address] [place] [address] Wil[place], Megan, OD [address] [place] [address] 07/15/2024 11:30 AM EDT Medication Management [facility] MEDICINE [address] [place] [address] Sophie Zapata PharmD [address] [place] [address] documented as of this encounter Goals Goal [...] documented as of this encounter Care Teams Tow Picker Relationship Specialty Start Date End Date Angelique Bolaños FNP [address] [place] [address] PCP - General Family Medicine 11/08/22 Vera Mcgovern PharmD [address] [place] [address] Pharmacist Internal Medicine 08/20/23 documented as of this encounter
--- OUTSIDE RECORDS SUMMARY | 2024-06-16 18:05 | XMS_ITS ---
Author Organization [employer] Address [address] [facility] 7t [place] [address] Care Team Providers Care Billet Checker Name Role Phone Angelique Bolaños DIE ENGRAVING SUPERVISOR Primary Care Provider [phone] Vera Mcgovern PharmD Unavailable [phone] CM Complex Status:Outreach In Progress (Enrolling) Start date:04/29/2024 Enrollment reason:ADT Feed Overview ED- Pt went to [facility] ED on 04/28. Case Team Name Relationship Phone Saúl Urbina RN Registered Nurse(Responsible St aff) [phone] Continued Care and Services Coordination
--- OUTSIDE RECORDS SUMMARY | 2024-06-16 18:05 | XMS_ITS | Encounter Summary ---
Author Organization [employer] Address [address] [facility] 7t [place] [address] Care Team Providers Care Director Of Leadership Development Name Role Phone Jen Sousa [facility] Primary Care Provider Angelique Bolaños DAMPER WORKER Primary Care Provider [phone] Vera Mcgovern PharmD Unavailable [phone] Encounter Details Date Type Department Care Team ([facility] Contact Info) Description 03/20/2022 Telephone [facility] MEDICINE [address] [place], [place] [phone] Ghada King, TERE Social History Tobacco Use [...] Description 06/24/2024 3:30 PM EDT Office Visit [facility] OPTOMETRY [address] [place], [place] [phone] Anaid Núñez, OD [address] [place] [address] 07/15/2024 11:30 AM EDT Medication Management [facility] MEDICINE [address] [place], [place] [phone] Sophie Zapata, JessicaD [address] [place] [phone] documented as of this encounter Visit Diagnoses Not on filedocumented in this encounter Care Teams Director Of Leadership Development Relationship Specialty Start Date End Date Jen Sousa FNP [address] [place] [id number] PCP - General Family Medicine 10/04/21 11/07/22 BoontonAngelique FNP [address] [place] [id number] PCP - General Family Medicine 11/08/22 Vera Mcgovern, JessicaD [address] [place] [phone] Pharmacist Internal Medicine 08/20/23 documented as of this encounter
--- OUTSIDE RECORDS SUMMARY | 2024-06-16 18:05 | XMS_ITS | Encounter Summary ---
Author Organization [employer] Address [address] [facility] 7t [place] [address] Care Team Providers Care Reinforcing Steel Worker Name Role Phone [place] [facility] Primary Care Provider [phone] Vera Mcgovern PharmD Unavailable [phone] Reason for Visit * Reason Onset Date Comments Add address 06/01/2024 Encounter Details Date Type Department Care Team ([facility] st Contact Info) Description 06/01/2024 Telephone [facility] MEDICINE [address] [place], [place] [phone] [facility] [address] [place] [address] Add address Social History Tobacco Use Types Packs/Day Years [...] encounter Miscellaneous Notes * Telephone Encounter - Tammy Licea - 06/01/2024 12:56 PM EDT Patient calling requesting PT1 Home Address verified: Y/N: Yes Provider name or facility name: [address] Escort needed: Y/N: Yes Do you have a wheelchair: Y/N: No If yes- Manual or electric: Visits: (amount of visits) ( x monthly, weekly, daily) documented in this encounter Plan of Treatment Upcoming Encounters Date Type Department Care Team (Late st Contact Info) Description 06/24/2024 3:30 PM EDT Office Visit [facility] OPTOMETRY [address] [place] [address] Anadi Núñez, OD [address] [place] [address] 07/15/2024 11:30 AM EDT Medication Management [facility] MEDICINE [address] [place] [address] Sophie Zapata PharmD [address] [place] [address] documented as of this encounter Goals Goal [...] documented as of this encounter Care Teams Reinforcing Steel Worker Relationship Specialty Start Date End Date Angelique Bolaños FNP [address] [place] [address] PCP - General Family Medicine 11/08/22 Vera Mcgovern PharmD [address] [place] [address] Pharmacist Internal Medicine 08/20/23 documented as of this encounter
--- OUTSIDE RECORDS SUMMARY | 2024-06-16 18:05 | XMS_ITS | Encounter Summary ---
Author Organization [employer] Address [address] [facility] 7t [place] [address] Care Team Providers Care Stone Grader Name Role Phone Jen Sousa DATA ENTRY PROCESSOR Primary Care Provider [phone] Angelique Bolaños DATA ENTRY PROCESSOR Primary Care Provider [phone] Vera Mcgovern PharmD Unavailable Encounter Details Date Type Department Care Team (Late Contact Info) Description 01/25/2022 Orders Only [facility] MED & PEDS [address] [place] [address] Rody Campbell LPN Social History Tobacco Use [...] Description 06/24/2024 3:30 PM EDT Office Visit [facility] OPTOMETRY [address] [place] [address] Anaid Núñez, OD [address] [place] [address] 07/15/2024 11:30 AM EDT Medication Management [facility] MEDICINE [address] [place] [address] Sophie Zapata, PharmD [address] [place] [address] documented as of this encounter Visit Diagnoses Not on filedocumented in this encounter Care Teams Stone Grader Relationship Specialty Start Date End Date Jen Sousa FNP [address] [place] [address] PCP - General Family Medicine 10/04/21 11/07/22 [place] ch[place] FNP [address] [place] [address] PCP - General Family Medicine 11/08/22 Vera Mcgovern PharmD [address] [place] [address] Pharmacist Internal Medicine 08/20/23 documented as of this encounter
--- OUTSIDE RECORDS SUMMARY | 2024-06-16 18:05 | XMS_ITS | Encounter Summary ---
Author Organization [employer] Address [address] [facility] 7t [place] [address] Care Team Providers Care Business Continuity Global Director Name Role Phone Jen Sousa [facility] Primary Care Provider [phone] [place] MountainAngelique PRINCIPLE SOFTWARE ENGINEER Primary Care Provider [phone] Vera Mcgovern PharmD Unavailable [phone] Reason for Visit * Reason Comments Med Refill Encounter Details Date Type Department Care Team ([facility] Contact Info) Description 02/27/2022 Telephone [facility] MED & PEDS [address] [place], [place] [phone] Jen Sousa FNP [address] [place], [place] [phone] Med Refill Social History Tobacco Use Types [...] Upcoming Encounters Date Type Department Care Team ([facility] Contact Info) Description 06/24/2024 3:30 PM EDT Office Visit [facility] OPTOMETRY [address], [place] [phone] [place], Anaid, OD [address] [place] [address] 07/15/2024 11:30 AM EDT Medication Management [facility] MEDICINE [address] [place] [address] Sophie Zapata, Maddy [address] [place] [address] documented as of this encounter Visit Diagnoses Diagnosis Type 2 diabetes mellitus with hyperglycemia, with long-term current use of insulin ([facility] Primary documented in this encounter Care Teams Business Continuity Global Director Relationship Specialty Start Date End Date Jen Sousa FNP [address] [place] [address] PCP - General Family Medicine 10/04/21 11/07/22 [place] Mountain[place] FNP [address] [place] [address] PCP - General Family Medicine 11/08/22 Vera Mcgovern PharmD [address] [place] [phone] Pharmacist Internal Medicine 08/20/23 documented as of this encounter
--- OUTSIDE RECORDS SUMMARY | 2024-06-16 18:05 | XMS_ITS | Encounter Summary ---
Author Organization [employer] Address [address] [place] [address] Care Team Providers Care Stock Manager Name Role Phone Angelique Bolaños TAX SERVICES MANAGER Primary Care Provider [phone] Vera Mcgovern PharmD Unavailable [phone] Reason for Referral * Consultation (Routine) - Pending Review Specialty Diagnoses / Procedures Referred By Contac t Referred To Contact Urology Diagnoses Recurrent UTI Bernadine Rodriguez MD [address] [place] [address] Phone: tel: fax: Referral ID Status Reason Start Date Expiration Date Visits Requested Visits Authorized [id number] Pending Review Specialty Services Required 06/16/2024 06/16/2025 1 1 * Consultation (Routine) - Authorized Specialty Diagnoses / Procedures Referred By Contac t Referred To Contact Diagnoses Other cirrhosis of liver (CMS/HCC) Depression with anxiety Type 2 diabetes mellitus with hyperglycemia, with long-term current use of insulin (CMS/HCC) Bernadine Rodriguez MD [address] [place] [address] Phone: tel: fax: Referral ID Status Reason Start Date Expiration Date Visits Requested Visits Authorized [id number] Authorized Specialty Services Required 06/16/2024 06/16/2025 1 1 * Consultation (Routine) - Authorized Specialty Diagnoses / Procedures Referred By Contac t Referred To Contact Pharmacy Diagnoses Type 2 diabetes mellitus with hyperglycemia, with long-term current use of insulin (CMS/HCC) Bernadine Rodriguez MD [address] [place] [id number] Phone: tel: fax: Referral ID Status Reason Start Date Expiration Date Visits Requested Visits Authorized [id number] Authorized Consult and Treat 06/16/2024 06/16/2025 6 6 Encounter Details Date Type Department Care Team (Late st Contact Info) Description 06/16/2024 9:30 AM EDT Office Visit [facility] [address] [place] [address] [phone] Bernadine Rodriguez MD [address] [place] [address] [phone] Type 2 diabetes mellitus with other specified complication, with long-term current use of insulin (CMS/HCC) (Primary Dx); Thrombocytopenia (CMS/HCC); Other cirrhosis of liver (CMS/HCC); Depression with anxiety; Type 2 diabetes mellitus with hyperglycemia, with long-term current use of insulin (CMS/HCC); Chronic pain of right knee; Urinary tract infection without hematuria, site unspecified; Recurrent UTI Social History Tobacco Use Types Packs/Day Years [...] 20 06/16/2024 9:52 AM EDT Oxygen Saturation - - Inhaled Oxygen Concentration - - Weight 123 kg (270 lb 12.8 oz) 06/16/2024 9:52 A M EDT Height 170.2 cm (5' 7 ) 06/16/2024 9:52 AM EDT Body Mass Index 42.41 06/16/2024 9:52 AM EDT documented in this encounter Progress Notes * Bernadine Martínez MD - 06/16/2024 9:30 AM EDT SUBJECTIVE: Billie Martínez is a 48 y.o. year old female who presents for HDF . [facility] (05/19/24 - 05/21/24) Patient presented to ED with diffuse abdominal and flank pain associated with nausea and vomiting and subjective fever, urinary retention, bladder pressure and malodorous urine for 5 days. 2 days prior diagnosed with UTI at [facility] but left AMA before being seen and getting antibiotics. Urine culture grew mixed sherley and treated with ceftriaxone and discharged on 3 days of cefuroxime. Patient's abdominal pain due to severe splenomegaly in setting of GAYTAN cirrhosis with chronic pancytopenia. Inpatient pain was controlled with opiates. Patient also had acute lactic acidosis, found to be due to metformin and cirrhosis rather than sepsis. Discharged home. Medication changes that occurred during hospitalization include: Added Oxycodone 5 mg q4hr PRN for severe pain Cefuroxime axetil 250 mg every 12 hours x 3 days Changed: none Discontinued: Lisinopril, Propranolol [facility] (06/04/24-06/07/24) Patient presented for evaluation of abdominal pain and found to have pancreatitis. Patient underwent extensive workup for etiology. Determined to likely be medication induced secondary to Trulicity. Trulicity discontinued. Patient also had lactic acidosis and metformin was discontinued. Recommendedto decrease insulin dose to 30 units at night until patient is eating more regularly. Medication changes that occurred during hospitalization include: Added Hydromorphone 2 mg every 4 hours as needed for pain Changed Tresiba 200 units/ml - 44 units subcutaneous once daily decreased to 30 units at bedtime Discontinued: Trulicity, metformin Acute Concerns: Patient today was really upset, she was crying at the beginning of the appointment N was called, patient feels frustrated and worry about her health, she feels her wili is declining rapidly Patient will like to be evaluated to increase her [employer] hours Patient will like to be referred to care management Patient reports pain and instability of her right knee (problem is chronic) Patient is not checking her glucose reports she does not have the reader for her CGM and she does not have a regular glucometer Patient today reports she is having again urinary symptoms, urinary frequency and urine mal odor Social History Social History Narrative ?? Current living environment: Lives with 6 kids ?? Children: 6 ?? Employment/Education: Disability ?? Activities: Music-reggae; used to enjoy walking ?? Tobacco Use: 1/2 PPD since age 17; ?? Alcohol Use: None ?? Marijuana Use: Daily marijuana use. Helps with pain mngmt ?? Other drug use: None ?? Reproductive Health: ?? Sexually Active: Not currently ?? Partners are: AMAB ?? Control: BTL ?? Planning a in the next 12 months: No Patient Active Problem List Diagnosis Chronic low back pain Other cirrhosis of liver (CMS/HCC) Generalized abdominal pain Major depressive disorder Type 2 diabetes mellitus (CMS/HCC) Polypharmacy Routine health maintenance Obstructive sleep apnea Anxiety Stress-related problem Moderate asthma History of renal stone Splenomegaly Essential hypertension Severe obesity (CMS/HCC) Mild intermittent asthma with acute exacerbation Acute vaginitis Folliculitis depilans Pyuria Continuous severe abdominal pain Acute flank pain Thrombocytopenia (CMS/HCC) Elevated lipase Acute kidney injury (CMS/HCC) Depression with anxiety Chronic pain of right knee UTI (urinary tract infection) Recurrent UTI Family History Problem Relation Name Age of Onset Diabetes type II Mother Breast cancer Mother's Sister Liver disease Father's Sister Review of Systems Constitutional: Positive for fatigue. Negative for activity change, appetite change, chills, diaphoresis, fever and unexpected weight change. HENT: Negative. Respiratory: Negative. Cardiovascular: Negative. Genitourinary: Positive for dysuria, frequency and urgency. Negative for decreased urine volume, difficulty urinating, dyspareunia, enuresis, flank pain, genital sores, hematuria, menstrual problem, pelvic pain, vaginal bleeding, vaginal discharge and vaginal pain. Musculoskeletal: Positive for arthralgias and myalgias. OBJECTIVE: Vitals: 06/16/24 0952 BP: (!) 129/91 BP Location: Left arm Patient Position: Sitting BP Cuff Size: Large adult Pulse: 93 Resp: 20 Temp: 97.6 ??F (36.4 ??C) TempSrc: Oral Weight: 270 lb 12.8 oz (123 kg) Height: 5' 7 (1.702 m) Physical Exam Constitutional: Appearance: Normal appearance. Cardiovascular: Rate and Rhythm: Normal rate and regular rhythm. Pulmonary: Effort: Pulmonary effort is normal. Breath sounds: Normal breath sounds. Abdominal: Tenderness: There is no abdominal tenderness. There is no right CVA tenderness or left CVA tenderness. Musculoskeletal: Right lower leg: No edema. Left lower leg: No edema. Neurological: Mental Status: She is alert. Follow Up: No follow-ups on file. Current Outpatient Medications on File Prior to Visit Medication Sig Dispense Refill albuterol 108 (90 Base) MCG/ACT inhaler Inhale 2 puffs every 4 (four) hours. Alcohol Swabs (Alcohol Prep) 70 % pads USE 1 TO CLEAN SKIN BEFORE INJECTION DIRECTED 100 each 11 Blood Glucose Monitoring Suppl (ONE TOUCH ULTRA 2) w/Device kit USE TO TEST BLOOD SUGAR FOUR TIMES DAILY 1 kit 0 Blood Pressure kit Use as directed 1 kit 0 budesonide-formoterol (Symbicort) 80-4.5 MCG/ACT inhaler INHALE 2 PUFFS BY MOUTH TWICE DAILY IN THEMORNING AND AT BEDTIME. MAY ALSO USE FOR SHORTNESS OF BREATH. RINSE MOUTH AFTER USING. 10.2 g 11 busPIRone (Buspar) 10 MG tablet TAKE 1 TABLET BY MOUTH THREE TIMES DAILY IN THE MORNING, EVENING, AND BEDTIME FOR ANXIETY 90 tablet 11 Continuous Glucose Sensor (FreeStyle Bri 2 Sensor) mis Apply 1 sensor every 14 days 2 each 3 cyclobenzaprine (Flexeril) 5 MG tablet Take 1 tablet (5 mg) by mouth if needed in the morning, at noon, and at bedtime for muscle spasms. 30 tablet 2 DULoxetine (Cymbalta) [address] capsule TAKE 1 CAPSULE BY MOUTH EVERY MORNING 30 capsule 1 ferrous sulfate (FeroSul) 325 (65 Fe) MG tablet TAKE 1 TABLET BY MOUTH EVERY OTHER DAY IN THE MORNING 45 tablet 3 FREESTYLE LITE test strip Use as instructed four times a day 100 each 12 glucose blood (FreeStyle Precision Ketan Test) test strip Test blood sugar 4 times daily 100 each 11 glucose blood (OneTouch Ultra) test strip USE TO TEST BLOOD SUGAR FOUR TIMES DAILY 100 each 3 hydrocortisone (Anusol-HC) 2.5 % rectal cream INSERT INTO THE RECTUM TWICE A DAY 20 g 1 ibuprofen 600 MG tablet Take 600 mg by mouth every 8 (eight) hours if needed. insulin pen needle (UltiGuard SafePack Pen Needle) 32G x 4 mm misc Use as instructed 100 each 6 naloxone (Narcan) 4 mg/0.1 mL nasal spray Administer 0.1 mL into affected nostril(s). OneTouch Delica Lancets 33G misc USE TO TEST BLOOD SUGAR FOUR TIMES DAILY 100 each 5 pantoprazole (ProtoNix) 40 MG EC tablet TAKE 1 TABLET BY MOUTH EVERY MORNING ON AN EMPTY STOMACH 90tablet 3 prazosin (Minipress) 2 MG capsule TAKE 1 CAPSULE BY MOUTH EVERY EVENING 90 capsule 3 pregabalin (Lyrica) 300 MG capsule TAKE 1 CAPSULE BY MOUTH TWICE DAILY IN THE MORNING AND IN THE EVENING 60 capsule 5 rosuvastatin (Crestor) 40 MG tablet TAKE 1 TABLET BY MOUTH AT BEDTIME 90 tablet 3 spironolactone (Aldactone) 25 MG tablet Take 25 mg by mouth Once per day. TRUEplus Lancets 33G misc USE DIRECTED TO TEST BLOOD SUGAR FOUR TIMES DAILY 100 each 5 [DISCONTINUED] Continuous Glucose Hotel Reservation Agent (FreeStyle Bri 3 Bomoseen) device 1 each 4 times daily. 1 each 0 [DISCONTINUED] insulin degludec (Tresiba FlexTouch) 200 UNIT/ML injection Inject 30 Units under theskin at bedtime. No current facility-administered medications on file prior to visit. Problem List Items Addressed This Visit Type 2 diabetes mellitus ([facility]) - Primary Diabetes is: not controlled but improved - Lab Results Component Value Date HGBA1C 8.1 (A) 06/16/2024 HGBA1C 12.1 (A) 02/18/2024 HGBA1C 13.8 (A) 05/02/2023 - Lab Results Component Value Date MICROALBUR 43.0 09/18/2023 CREATININE 0.96 05/27/2024 -Changes: I went up agai on her long acting insulin to 36U at bed time I will refer this patient topharmacy CDTM for further adjustment of her insulin, I prescribed CGM reader and I also prescribe aregular glucometer so if there is any problem she will have something to test her glucose Relevant Medications insulin degludec (Tresiba FlexTouch) 200 UNIT/ML injection Continuous Glucose Hotel Reservation Agent (FreeStyle Bri 3 Bomoseen) device FREESTYLE LITE test strip Lancets misc Alcohol Swabs 70 % pads Blood Glucose Monitoring Suppl (FreeStyle Cors[place] Lite) w/Device kit Other Relevant Orders Referral to Pharmacy CDTM Referral to Care Management POCT Glucose (Completed) POCT HGB A1C (Completed) Thrombocytopenia (CMS/HCC) Other cirrhosis of liver (CMS/HCC) Hepatic panel ordered for monitoring and reassess if statin will be started again or not Continue to follow with specialist Relevant Orders Hepatic Function Panel Referral to Care Management Depression with anxiety Extensive counseling done [facility] was called we will follow recommendations Relevant Orders Referral to Care Management Chronic pain of right knee XRAY ordered patient will be contacted with results Meanwhile elevate knee, apply ice and rest Lidocaine patch can be applied locally Relevant Medications lidocaine (Lidoderm) 5 % patch Other Relevant Orders XR Knee 4+ Views Right UTI (urinary tract infection) Relevant Medications nitrofurantoin, macrocrystal-monohydrate, (Macrobid) 100 MG capsule Other Relevant Orders POCT Urinalysis (Completed) Culture, Urine, Routine Recurrent UTI In light of recurrent UTIs I referred patient to urology Relevant Orders Referral to Urology documented in this encounter Miscellaneous Notes * Assessment & Plan Note - Bernadine Martínez MD - 06/16/2024 1:44 PM EDT Associated Problem(s): Depression with anxiety Extensive counseling done [facility] was called we will follow recommendations * Assessment & Plan Note - Bernadine Martínez MD - 06/16/2024 1:43 PM EDT Associated Problem(s): Type 2 diabetes mellitus ([facility]) Diabetes is: not controlled but improved - Lab Results Component Value Date HGBA1C 8.1 (A) 06/16/2024 HGBA1C 12.1 (A) 02/18/2024 HGBA1C 13.8 (A) 05/02/2023 - Lab Results Component Value Date MICROALBUR 43.0 09/18/2023 CREATININE 0.96 05/27/2024 -Changes: I went up agai on her long acting insulin to 36U at bed time I will refer this patient topharmacy CDTM for further adjustment of her insulin, I prescribed CGM reader and I also prescribe aregular glucometer so if there is any problem she will have something to test her glucose * Assessment & Plan Note - Bernadine Martínez MD - 06/16/2024 1:41 PM EDT Associated Problem(s): Chronic pain of right knee XRAY ordered patient will be contacted with results Meanwhile elevate knee, apply ice and rest Lidocaine patch can be applied locally * Assessment & Plan Note - Bernadine Martínez MD - 06/16/2024 1:40 PM EDT Associated Problem(s): Recurrent UTI In light of recurrent UTIs I referred patient to urology * Assessment & Plan Note - Bernadine Martínez MD - 06/16/2024 1:39 PM EDT Associated Problem(s): Other cirrhosis of liver (CMS/HCC) Hepatic panel ordered for monitoring and reassess if statin will be started again or not Continue to follow with specialist documented in this encounter Plan of Treatment Upcoming Encounters Date Type Department Care Team (Late st Contact Info) Description 06/24/2024 3:30 PM EDT Office Visit [facility] [address] [place] [address] Anaid Núñez, OD [address] [place] [address] 07/15/2024 11:30 AM EDT Medication Management [facility] [address] [place] [address] Sophie Zapata, JessicaD [address] [place] [address] Scheduled Orders Name Type Priority Associated Diagnoses Orde r Schedule Hepatic Function Panel Lab Routine Other cirrhosis of liver (CMS/HCC) Expected: 06/16/2024 (Approximate), Expires: 06/16/2025 XR Knee 4+ Views Right Imaging Routine Chronic pain of right knee Expected: 06/16/2024, Expires: 06/16/2025 Culture, Urine, Routine Microbiology Routine Urinary tract infection without hematuria, site unspecified Ordered: 06/16/2024 Scheduled Referrals Name Type Priority Associated Diagnoses Order Schedule Referral to Pharmacy CDTM Outpatient Referral Routine Type 2 diabetes mellitus with hyperglycemia, with long-term current use of insulin ([facility]) Ordered: 06/16/2024 Referral to Care Management Outpatient Referral Routine Other cirrhosis of liver ([facility]) Depression with anxiety Type 2 diabetes mellitus with hyperglycemia, with long-term current use of insulin ([facility]) Expected: 06/16/2024 (Approximate), Expires: 06/16/2025 Referral to Urology Outpatient Referral Routine Recurrent UTI Expected: 06/16/2024 (Approximate), Expires: 06/16/2025 documented as of this encounter Goals Goal Patient Goal Type Associated Problems Recent Progress Patient-Stated? Author Hemoglobin A1c < 7 Result Component 8.1( 10:29 AM EDT) No [facility]l Vera matthew, PharmD Record your blood sugar as directed Result Component No [facility]l Vera matthew, PharmD documented as of this encounter Procedures Procedure Name Priority Date/Time Associated Diagnosis Comments POCT URINALYSIS DIPSTICK Routine 06/16/2024 10:58 AM EDT Urinary tract infection without hematuria, site unspecified POCT GLYCATED HEMOGLOBIN, TOTAL Routine 06/16/2024 10:29 AM EDT Type 2 diabetes mellitus with other specified complication, with long-term current use of insulin ([facility]) POCT GLUCOSE Routine 06/16/2024 10:28 AM EDT Type 2 diabetes mellitus with other specified complication, with long-term current use of insulin ([facility]) documented in this encounter Results * (ABNORMAL) POCT Urinalysis (06/16/2024 10:58 AM EDT) Color, UA Yellow Clarity, UA Clear Glucose, UA Trace Comment:1000mg Bilirubin, UA Trace Comment:small Ketones, UA Negative Spec Grav, UA 1.020 Blood, UA Positive(A) Negative, None Detected Comment:small pH, UA 6.0 Protein, UA Trace Comment:100mg Urobilinogen, UA 1.0 Leukocytes, UA Trace Negative, Rare, Trace Nitrite, UA Positive(A) Negative, None Detected Appearance, UA yellow QC Media Lot # [id number] Lot# Expiration Date Urine 06/16/2024 10:5 8 AM EDT Result [facility] Bernadine Martínez MD POINT OF CARE TEST EN TER/EDIT ORDERABLES Final Result * (ABNORMAL) POCT HGB A1C (06/16/2024 10:29 AM EDT) Hemoglobin A1C 8.1(A) 4.0 - 6.0 % QC Media Lot # [id number] Lot# Expiration Date Blood 06/16/2024 10:2 9 AM EDT Result [facility] Bernadine Martínez MD POINT OF CARE TEST EN TER/EDIT ORDERABLES Final Result * (ABNORMAL) POCT Glucose (06/16/2024 10:28 AM EDT) Glucose Blood, POC 0(A) 60 - 200 mg/dL Comment:[facility] QC Media Lot # [id number] Lot# Expiration Date Blood Capillary blood specimen / Unknown 06/16/2024 10:28 AM EDT Result [facility] Bernadine Martínez MD POINT OF CARE TEST EN TER/EDIT ORDERABLES Final Result documented in this encounter Visit Diagnoses Diagnosis Type 2 diabetes mellitus with other specified complication, with long-term current use of insulin (CMS/HCC)- Primary Thrombocytopenia (CMS/HCC) Unspecified thrombocytopenia Other cirrhosis of liver (CMS/HCC) Depression with anxiety Dysthymic disorder Type 2 diabetes mellitus with hyperglycemia, with long-term current use of insulin (CMS/HCC) Chronic pain of right knee Urinary tract infection without hematuria, site unspecified Recurrent UTI Urinary tract infection, site not specified documented in this encounter Additional Health Concerns Assessment Noted Time PHQ-9 Depression Total Score: 22 025 10:29 AM EDT documented as of this encounter Care Teams Stock Manager Relationship Specialty Start Date End Date Mami JESS Merino [address] [place] [address] PCP - General Family Medicine 11/08/22 Vera Mcgovern, JessicaD [address] [place] [address] Pharmacist Internal Medicine 08/20/23 documented as of this encounter
== END 2024-06-16 18:02 | disposition home or self-care (01) ==
LOC: HO.HHCLNP 18:01
PROVIDERS: Visit Provider Internal Medicine
DX: N39.0 Urinary tract infection, site not specified (principal)
CPT/HCPCS: 87086; 87088; 87186

== ENCOUNTER 2024-06-18 13:46 | Outpatient (REF) | payer MEDICAID, SELFPAY ==
--- NOTE | ~2024-06-18 | XR_ITS ---
EXAMINATION: XR KNEE, RIGHT CLINICAL INFORMATION: chronic pain COMPARISON: None available. TECHNIQUE: Four views of the right knee. FINDINGS: No fracture, dislocation, or suspicious bone lesion. Normal alignment. Mild to moderate tricompartmental osteoarthrosis evident, with marginal osteophytic spurring most notable in the lateral compartment. Mild spurring of the tibial spines. There is a moderate sized suprapatellar joint effusion. There is no soft tissue abnormality. XR/XR knee RT 4V IMPRESSION: 1. No acute bony abnormalities. 2. Moderate sized suprapatellar joint effusion. 3. Moderate tricompartmental osteoarthrosis. Electronically signed by: Renzo Gomez MD 06/18/2024 03:43 PM EDT
--- OUTSIDE RECORDS SUMMARY | 2024-06-18 13:49 | XMS_ITS | Clinical Summary ---
Author Organization 175 [facility] Address [address] [place] [address] Phone Care Team Providers Care Jacquard Loom Heddles Tier Name Role Phone [facility] Primary Care Provider [phone] Allergies Active Allergy Reactions Criticality Noted Date Comments Acetaminophen 04/28/2024 Medications ibuprofen (ADVIL,MOTRIN) 600 mg tablet Take 1 tablet (600 mg total) by mouth every 8 (eight) hours if needed for moderate pain. 30 tablet 04/29/2024 Active Encounters Date Type Department Care Team Description 05/17/2024 8:25 PM EDT - 05/18/2024 4:[address] [facility] [address] [place] [id number] Discharge Disposition: Left Against Medical Advice 04/28/2024 11:53 PM EDT - 04/29/2024 6:[address] [facility] [address] [place] [phone] Right upper quadrant abdominal pain (Primary Dx) [...] 2:45 PM EDT Consult Orthopedic Surgery [place] [address] [address] Fabricio Gao, DPM [address] [address] Health Maintenance Due Date Last Done Comments [...] of2 resultswithin the time period is included. [facility] WBC 5.2 4.8 - 10.8 K/mcL LAB HEMETOLOGY METHOD 05/17/2024 9:41 PM EDT [facility] RBC 4.30 3.80 - 4.80 M/mcL LAB HEMETOLOGY METHOD 05/17/2024 9:41 PM EDT [facility] Hemoglobin 13.1 11.5 - 16.0 g/dL LAB HEMETOLOGY METHOD 05/17/2024 9:41 PM EDT [facility] Hematocrit 39.6 35.0 - 47.0 % LAB HEMETOLOGY METHOD 05/17/2024 9:41 PM EDT [facility] MCV 92.5 79.0 - 98.0 FL LAB HEMETOLOGY METHOD 05/17/2024 9:41 PM EDT [facility] MCH 30.6 27.0 - 32.0 pcg LAB HEMETOLOGY METHOD 05/17/2024 9:41 PM EDT [facility] MCHC 33.1 32.0 - 37.0 g/dL LAB HEMETOLOGY METHOD 05/17/2024 9:41 PM [facility] RDW 15.7(H) 11.0 - 15.0 % LAB [facility]OLOGY [facility] Platelets 64(L) 130 - 400 K/mcL LAB HEMETOLOGY METHOD 05/17/2024 9:41 PM EDT [facility] Comment:previously verified by slide MPV 11.1(H) 7.0 - 11.0 FL LAB HEMETOLOGY METHOD 05/17/2024 9[facility] NRBC 0.0 <1.0 % LAB HEMETOLOGY METHOD 05/17/2024 9:41 PM [facility] NRBC Absolute 0.00 <0.10 K/mcL LAB HEMETOLOGY METHOD 05/17/2024 9:41 PM [facility] Neutrophils Relative 64.8 % LAB HEMETOLOGY METHOD 05/17/2024 9:41 PM [facility] Lymphocytes Relative 27.7 % LAB HEMETOLOGY METHOD 05/17/2024 9:41 PM [facility] Monocytes Relative 5.9 % LAB HEMETOLOGY METHOD 05/17/2024 9:41 PM [facility] Eosinophils Relative 0.8 % LAB HEMETOLOGY METHOD 05/17/2024 9:41 PM [facility] Basophils Relative 0.4 % LAB HEMETOLOGY METHOD 05/17/2024 9:41 PM [facility] Immature Granulocytes Relative 0.4 % LAB HEMETOLOGY METHOD 05/17/2024 9:41 PM [facility] Neutrophils Absolute 3.39 1.50 - 7.00 K/mcL LAB HEMETOLOGY METHOD 05/17/2024 9:41 PM [facility] Lymphocytes Absolute 1.45 1.00 - 5.00 K/mcL LAB HEMETOLOGY METHOD 05/17/2024 9:41 PM [facility] Monocytes Absolute 0.31 0.20 - 1.00 K/mcL LAB HEMETOLOGY METHOD 05/17/2024 9:41 PM [facility] Eosinophils Absolute 0.04 0.00 - 0.50 K/mcL LAB HEMETOLOGY METHOD 05/17/2024 9:41 PM EDT [facility] Basophils Absolute 0.02 0.00 - 0.20 K/[facility] LAB HEMETOLOGY METHOD 05/17/2024 9:41 PM EDT [facility] Immature Granulocytes Absolute 0.02 0.00 - 0.03 K/[facility] LAB HEMETOLOGY METHOD 05/17/2024 9:41 PM EDT [facility] Blood Venous blood specimen / Unknown Venipuncture / Unknown 05/17/2024 8:58 PM EDT 05/17/2024 9:06 PM EDT us German Mittal MD LAB BLOOD ORDERABLES Final Result Performing Organization Address [facility] de Phone Number [facility] [address] [place] [address], [place] [phone] * (ABNORMAL) Lipase (05/17/2024 8:58 PM EDT) Only the most recent of2 resultswithin the time period is included. Lipase 95(H) 13 - 75 unit/L LAB CHEMISTRY METHOD 05/17/2024 9:32 PM EDT [facility] Blood Venous blood specimen / Unknown Venipuncture / Unknown 05/17/2024 8:58 PM EDT 05/17/2024 9:05 PM EDT German Mittal MD LAB BLOOD ORDERABLES Final Result Performing Organization Address [facility]/ZIP Co de Phone Number [facility] [address] [place] [address], [place] [phone] * (ABNORMAL) Comprehensive metabolic panel (05/17/2024 8:58 PM EDT) Only the most recent of2 resultswithin the time period is included. Sodium 140 133 - 145 mmol/L LAB CHEMISTRY METHOD 05/17/2024 9:32 PM EDT [facility] Potassium 3.8 3.5 - 5.5 mmol/L LAB CHEMISTRY METHOD 05/17/2024 9:32 PM [facility] Chloride 108 96 - 110 mmol/L LAB CHEMISTRY METHOD 05/17/2024 9:32 PM [facility] CO2 25 21 - 32 mmol/L LAB CHEMISTRY METHOD 05/17/2024 9:32 PM [facility] Anion Gap 7 3 - 11 LAB CHEMISTRY METHOD 05/17/2024 9:32 PM [facility] Glucose 141(H) 70 - 100 mg/dL LAB CHEMISTRY METHOD 05/17/2024 9:32 PM [facility] BUN 10 5 - 25 mg/dL LAB CHEMISTRY METHOD 05/17/2024 9:32 PM [facility] Creatinine 1.23(H) 0.50 - 1.10 mg/dL LAB CHEMISTRY METHOD 05/17/2024 9:32 PM [facility] eGFR 54(L) >=60 mL/min/1. 73m2 LAB CHEMISTRY METHOD 05/17/2024 9:32 PM [facility] Comment:Calculation based on the??Chronic Kidney Disease Epidemiology Collaboration (CKD-EPI) equation refit??without adjustment for race. BUN/Creatinine Ratio 8.1 LAB CHEMISTRY METHOD 05/17/2024 9:32 PM [facility] Calcium 9.4 8.5 - 10.5 mg/dL LAB CHEMISTRY METHOD 05/17/2024 9:32 PM [facility] AST (SGOT) 35 10 - 42 unit/L LAB CHEMISTRY METHOD 05/17/2024 9:32 PM [facility] ALT (SGPT) 26 10 - 60 unit/L LAB CHEMISTRY METHOD 05/17/2024 9:32 PM [facility] Alkaline Phosphatase 288(H) 42 - 121 unit/L LAB CHEMISTRY METHOD 05/17/2024 9:32 PM EDT [facility] Total Protein 7.9 6.0 - 8.0 g/dL LAB CHEMISTRY METHOD 05/17/2024 9:32 PM EDT [facility] Albumin 3.2 3.2 - 5.0 g/dL LAB CHEMISTRY METHOD 05/17/2024 9:32 PM EDT [facility] Total Bilirubin 1.2 0.0 - 1.4 mg/dL LAB CHEMISTRY METHOD 05/17/2024 9:32 PM EDT [facility] Blood Venous blood specimen / Unknown Venipuncture / Unknown 05/17/2024 8:58 PM EDT 05/17/2024 9:05 PM EDT us German Mittal MD LAB BLOOD ORDERABLES Final Result [facility] [address] [place] [address], [place] [phone] * POC , urine manually resulted (05/17/2024 8:50 PM EDT) Pathologist [facility] HCG, Ur POC Negative Negative POC hCG Int QC Pass? Yes Yes Urine Urine specimen obtained by clean catch procedure / Unknown 05/17/2024 8:50 PM EDT us German Mittal MD POINT OF CARE TEST ENTER/ED IT ORDERABLES Final Result * (ABNORMAL) Urinalysis with reflex microscopic and culture (05/17/2024 8:47 PM EDT) Pathologist [facility] Specific [place] Urine 1.017 1.003 - 1.030 LAB URINALYSIS - AUTOMATED METHOD 05/17/2024 9:32 PM EDT [facility] pH, Urine 7.0 5.0 - 8.0 pH LAB URINALYSIS - AUTOMATED METHOD 05/17/2024 9:32 PM EDT [facility] Leukocytes, Urine Large(A) Negative LAB URINALYSIS - AUTOMATED METHOD 05/17/2024 9:32 PM [facility] Nitrite, Urine Positive(A) Negative LAB URINALYSIS - AUTOMATED METHOD 05/17/2024 9:32 PM [facility] Protein, Urine 100(A) <=Trace mg/dL LAB URINALYSIS - AUTOMATED METHOD 05/17/2024 9:32 PM [facility] Glucose, Urine Negative Negative mg/dL LAB URINALYSIS - AUTOMATED METHOD 05/17/2024 9:32 PM [facility] Ketones, Urine Negative Negative mg/dL LAB URINALYSIS - AUTOMATED METHOD 05/17/2024 9:32 PM [facility] Urobilinogen , Urine 2.0(A) 0.2 - 1.0 mg/dL LAB URINALYSIS - AUTOMATED METHOD 05/17/2024 9:32 PM [facility] Bilirubin, Urine Negative Negative LAB URINALYSIS - AUTOMATED METHOD 05/17/2024 9:32 PM [facility] Blood, Urine Small(A) Negative LAB URINALYSIS - AUTOMATED METHOD 05/17/2024 9:32 PM [facility] RBC, Urine 16.8(H) 0 - 4 /HPF LAB URINALYSIS - AUTOMATED METHOD 05/17/2024 9:32 PM [facility] WBC, Urine 293.0(H) 0 - 4 /HPF LAB URINALYSIS - AUTOMATED METHOD 05/17/2024 9:32 PM [facility] Squamous Epithelial, Urine 25 0 - 60 /LPF LAB URINALYSIS - AUTOMATED METHOD 05/17/2024 9:32 PM [facility] Bacteria, Urine Many(A) Negative /HPF LAB URINALYSIS - AUTOMATED METHOD 05/17/2024 9:32 PM [facility] Hyaline Casts, Urine 1.2 0 - 3 /LPF LAB URINALYSIS - AUTOMATED METHOD 05/17/2024 9:32 PM EDT [facility] Urine Urine specimen obtained by clean catch procedure / Unknown Non-blood Collection / Unknown 05/17/2024 8:47 PM EDT 05/17/2024 9:07 PM EDT German Mittal MD LAB URINE ORDERABLES Final Result Performing Organization Address [facility]/ZIP Co de Phone Number [facility] [address] [place] [address], [place] [phone] * Ureña urine culture tube (05/17/2024 8:47 PM EDT) Pathologist [facility] Extra Tube Hold for add-ons. 05/17/2024 11:01 PM EDT [facility] Comment:Auto resulted. Urine Urine specimen obtained by clean catch procedure / Unknown Non-blood Collection / Unknown 05/17/2024 8:47 PM EDT 05/17/2024 9:07 PM EDT German Mittal MD LAB URINE ORDERABLES Final Result Performing Organization Address [facility] de Phone Number [facility] [address] [place] [address], [place] [phone] * Culture urine (05/17/2024 8:47 PM EDT) Pathologist [facility] Culture, Urine >100,000 CFU/mL Mixed bacterial morphotypes present suggestive of possible contamination during collection. Suggest appropriate recollection if clinically indicated. 05/19/2024 10:43 AM EDT [facility] Urine Urine specimen obtained by clean catch procedure / Unknown Non-blood Collection / Unknown 05/17/2024 8:47 PM EDT 05/17/2024 9:32 PM EDT German Mittal MD LAB MICROBIOLOGY - GENERAL ORDERABLES Final Result Performing Organization Address [facility] de Phone Number [facility] [address] [place] [address], * ECG-Annotated (04/30/2024) us Provider Onbase ECG [...] CT Abdomen and Pelvis W Contrast COMPARISON: US/MI - US ABD LIMITED - 04/29/24 00:25 [...] CT Abdomen and Pelvis W Contrast COMPARISON: US/MI - US ABD LIMITED - 04/29/24 00:25 [...] since the prior study performed 03/30/2023. Code 84410 -------- FINAL REPORT -------- Dictated By: Domingo Torres Dictated Date: 04/29/2024 08:00 ET Assigned Physician: Domingo Torres Reviewed and Electronically Signed By: Domingo Torres Signed Date: 04/29/2024 08:01 ET Workstation ID: [id number] Transcribed By: Self Edit Transcribed Date: 04/29/2024 [...] since the prior study performed 03/30/2023. Code 47461 -------- FINAL REPORT -------- Dictated By: Domingo Torres Dictated Date: 04/29/2024 08:00 ET Assigned Physician: Domingo Torres Reviewed and Electronically Signed By: Domingo Torres Signed Date: 04/29/2024 08:01 ET Workstation ID: [id number] Transcribed By: Self Edit Transcribed Date: 04/29/2024 [...] of2 resultswithin the time period is included. [facility] Ventricular Rate ECG 74 BPM GEMUSE Atrial Rate 74 BPM GEMUSE P-R Interval 156 ms GEMUSE QRS Duration 74 ms GEMUSE Q-T Interval 410 ms GEMUSE QTc 455 ms GEMUSE P Wave [place] 39 degrees GEMUSE R [place] -6 degrees GEMUSE T [place] 2 degrees GEMUSE ECG Interpretation Normal sinus [...] of2 resultswithin the time period is included. [facility] High Sensitivity Troponin I 3 <=54 ng/L LAB CHEMISTRY METHOD 04/29/2024 1:38 AM EDT [facility] Blood Venous blood specimen / Unknown Venipuncture / Unknown 04/29/2024 12:21 AM EDT 04/29/2024 1:12 AM EDT Narrative [facility] - 04/29/2024 1:38 AM EDT High levels of biotin in samples may falsely decrease hsTroponin values. ??Use caution when interpreting hsTroponin results in patients taking biotin who exhibit renal impairment (eGFR <60) or in patients taking more than 20 mg/day of biotin. Cr Couch MD LAB BLOOD ORDERABLES Final Resu lt Performing Organization Address City/[facility]/ZIP Co de Phone Number [facility] [address] [place] [address], [place] [phone] * hCG Qualitative (04/28/2024 9:27 PM EDT) hCG Qual Negative Negative 04/29/2024 3:07 AM EDT [facility] Blood Venous blood specimen / Unknown Venipuncture / Unknown 04/28/2024 9:27 PM EDT 04/28/2024 9:44 PM EDT Renzo WHITMAN LAB BLOOD ORDERABLES Final Resul t Performing Organization Address [facility] Co de Phone Number [facility] [address] [place] [address], * B-type natriuretic peptide (04/28/2024 9:27 PM EDT) BNP 30 <=100 pcg/mL LAB CHEMISTRY METHOD 04/28/2024 10:21 PM EDT [facility] Blood Venous blood specimen / Unknown Venipuncture / Unknown 04/28/2024 9:27 PM EDT 04/28/2024 9:44 PM EDT Cr Couch MD LAB BLOOD ORDERABLES Final Resu lt Performing Organization Address City/[facility]/ZIP Co de Phone Number [facility] [address] [place] [address], [place] [phone] * Magnesium (04/28/2024 9:27 PM EDT) Magnesium 2.0 1.9 - 2.6 mg/dL LAB CHEMISTRY METHOD 04/28/2024 10:13 PM EDT [facility] Blood Venous blood specimen / Unknown Venipuncture / Unknown 04/28/2024 9:27 PM EDT 04/28/2024 9:44 PM EDT us Cr Zulema Couch MD LAB BLOOD ORDERABLES Final Resu lt [facility] ([facility] [address] [place] [address], from Last 3 Months Insurance MEDICAID - [place] Care Teams Jacquard Loom Heddles Tier Relationship Specialty Start Date End Date Angelique Bolaños [address] [place] [phone] PCP - General Family Medicine 04/05/24
--- OUTSIDE RECORDS SUMMARY | 2024-06-18 13:49 | XMS_ITS | Encounter Summary ---
Author Organization [employer] Address [address] [facility] 7t [place] [address] Care Team Providers Care Rack Carrier Name Role Phone Mami [facility] Primary Care Provider [phone] Vera Mcgovern PharmD Unavailable [phone] Reason for Visit * Reason Onset Date Comments Hospital Follow-up 05/24/2024 Encounter Details Date Type Department Care Team ([facility] st Contact Info) Description 05/24/2024 Telephone [facility] MEDICINE [address] [place] [address] [place] [facility] [address] [place] [address] Hospital Follow-up Social History Tobacco Use Types [...] from pt requesting a HDF appt. Hospital: [facility] Date of admission: 05/19/24 Discharge date: 05/21/24 Diagnosed: kidney infection Contact pt at [phone] documented in this encounter Plan of Treatment Upcoming Encounters Date Type Department Care Team (Late st Contact Info) Description 06/24/2024 3:30 PM EDT Office Visit [facility] OPTOMETRY [address] [place] [address] Anaid Núñez, OD [address] [place] [address] 07/15/2024 11:30 AM EDT Medication Management [facility] MED[facility]INE [address] [place] [address] Sophie Zapata PharmD [address] [place] [address] documented as of this encounter Goals Goal [...] documented as of this encounter Care Teams Rack Carrier Relationship Specialty Start Date End Date Angelique Bolaños FNP [address] [place] [address] PCP - General Family Medicine 11/08/22 Vera Mcgovern PharmD [address] [place] [phone] Pharmacist Internal Medicine 08/20/23 documented as of this encounter
--- OUTSIDE RECORDS SUMMARY | 2024-06-18 13:49 | XMS_ITS | Encounter Summary ---
Author Organization [employer] Address [address] [facility] 7t [place] [address] Care Team Providers Care Film Developing Machine Operator Name Role Phone Angelique Bolaños NEEDLE LOOM WEAVER Primary Care Provider [phone] Vera Mcgovern PharmD Unavailable [phone] Encounter Details Date Type Department Care Team (Late st Contact Info) Description 06/18/2024 Orders Only [facility] MEDICINE [address] [place] [address] Bernadine Rodriguez MD [address] [place] [address] Recurrent UTI (Primary Dx) Social History Tobacco Use Types [...] Description 06/24/2024 3:30 PM EDT Office Visit [facility] OPTOMETRY [address] [place] [address] Wilton, Anaid, OD [address] [place] [address] 07/15/2024 11:30 AM EDT Medication Management [facility]INE [address] [place] [address] Sophie Zapata PharmD [address] [place] [address] documented as of this encounter Goals Goal Patient Goal Type Associated Problems Recent Progress Patient-Stated? Author Hemoglobin A1c < 7 Result Component 8.1( 10:29 AM EDT) No Vera Bean, PharmD Record your blood sugar as directed Result Component No Vera Bean PharmD documented as of this encounter Visit Diagnoses Diagnosis Recurrent UTI- Primary Urinary tract infection, site not specified documented in this encounter Additional Health Concerns Assessment Noted Time PHQ-9 Depression Total Score: 22 06/16/ 025 10:29 AM EDT documented as of this encounter Care Teams Film Developing Machine Operator Relationship Specialty Start Date End Date Angelique Bolaños FNP [address] [place] [address] PCP - General Family Medicine 11/08/22 Vera Mcgovern, Maddy [address] [place] [address] Pharmacist Internal Medicine 08/20/23 documented as of this encounter
--- OUTSIDE RECORDS SUMMARY | 2024-06-18 13:49 | XMS_ITS | Encounter Summary ---
Author Organization [employer] Address [address] [facility] 7t [place] [address] Care Team Providers Care Utility Maintenance Worker Name Role Phone Jen Sousa DENTAL LAB TECHNICIAN Primary Care Provider [phone] [place] Angelique DENTAL LAB TECHNICIAN Primary Care Provider [phone] Vera Mcgovern PharmD Unavailable [phone] Encounter Details Date Type Department Care Team ([facility] Contact Info) Description 05/14/2022 Telephone [facility] MEDICINE [address] [place], [place] [phone] Jen Sousa FNP [address] [place], [place] [phone] Social History Tobacco Use Types Packs/Day Years [...] Upcoming Encounters Date Type Department Care Team ([facility] Contact Info) Description 06/24/2024 3:30 PM EDT Office Visit [facility] OPTOMETRY [address] [place], [place] [phone] Anaid Núñez, OD [address] [place] [address] 07/15/2024 11:30 AM EDT Medication Management [facility] MEDICINE [address] [place] [address] Sophie Zapata, JessicaD [address] [place] [address] documented as of this encounter Visit Diagnoses Not on filedocumented in this encounter Care Teams Utility Maintenance Worker Relationship Specialty Start Date End Date Jen Sousa FNP [address] [place] [phone] PCP - General Family Medicine 10/04/21 11/07/22 [place] FNP [address] [place] [phone] PCP - General Family Medicine 11/08/22 Vera Mcgovern PharmD [address] [place] [address] [phone] Pharmacist Internal Medicine 08/20/23 documented as of this encounter
--- OUTSIDE RECORDS SUMMARY | 2024-06-18 13:49 | XMS_ITS | Encounter Summary ---
Author Organization [employer] Address [address] [facility] 7t [place] [address] Care Team Providers Care Paper Box Maker Name Role Phone Jen Sousa [facility] Primary Care Provider [phone] Angelique Bolaños MINE FOREMAN Primary Care Provider [phone] Vera Mcgovern PharmD Unavailable [phone] Encounter Details Date Type Department Care Team (Late Contact Info) Description 06/27/2022 Telephone [facility] MEDICINE [address] [place] [address] [phone] Ghaad King, TERE Social History Tobacco Use Types [...] 3:30 PM EDT Office Visit [facility] OPTOMETRY [address] [place], [place] [phone] Anaid Núñez, OD [address] [place], [place] [phone] 07/15/2024 11:30 AM EDT Medication Management [facility] MEDICINE [address] [place] [phone] Sophie Zapata, JessicaD [address] [place] [address] documented as of this encounter Visit Diagnoses Not on filedocumented in this encounter Care Teams Paper Box Maker Relationship Specialty Start Date End Date Jen Sousa FNP [address] [place] [address] PCP - General Family Medicine 10/04/21 11/07/22 [place] FNP [address] [place] [phone] PCP - General Family Medicine 11/08/22 Vera Mcgovern, JessicaD [address] [place] [phone] Pharmacist Internal Medicine 08/20/23 documented as of this encounter
--- OUTSIDE RECORDS SUMMARY | 2024-06-18 13:49 | XMS_ITS | Encounter Summary ---
Author Organization [employer] Address [address] [facility] 7t [place] [address] Care Team Providers Care Back Up Machine Operator Name Role Phone Angelique Bolaños IMAGING CLERK Primary Care Provider [phone] Vera Mcgovern PharmD Unavailable [phone] Encounter Details Date Type Department Care Team (Late st Contact Info) Description 06/17/2024 Orders Only [facility] MEDICINE [address] [place] [address] Bernadine Rodriguez MD [address] [place] [address] Type 2 diabetes mellitus with other specified complication, with long-term current use of insulin ([facility]) (Primary Dx) Social History Tobacco Use Types [...] the past 12 months, has t he [employer], gas, oil or water Deal In City threatened to shut off services in your [...] Description 06/24/2024 3:30 PM EDT Office Visit [facility] OPTOMETRY [address] [place] [address] Wilton, Anaid, OD [address] [place] [address] 07/15/2024 11:30 AM EDT Medication Management [facility] MEDICINE [address] [place] [address] Sophie Zapata PharmD [address] [place] [address] documented as of this encounter Goals Goal [...] complication, with long-term current use of insulin ([facility])- Primary documented in this encounter Additional Health Concerns Assessment Noted Time PHQ-9 Depression Total Score: 22 06/16/ 025 10:29 AM EDT documented as of this encounter Care Teams Back Up Machine Operator Relationship Specialty Start Date End Date Angelique Bolaños FNP [address] [place] [address] PCP - General Family Medicine 11/08/22 Vera Mcgovern, PharmD [address] [place] [phone] Pharmacist Internal Medicine 08/20/23 documented as of this encounter
--- OUTSIDE RECORDS SUMMARY | 2024-06-18 13:49 | XMS_ITS | Encounter Summary ---
Author Organization [employer] Address [address] [facility] [address] [place] [address] Care Team Providers Care Building Stonecutter Name Role Phone Jen Sousa [facility] Primary Care Provider [phone] [place] [employer] Primary Care Provider [phone] Vera Mcgovern PharmD Unavailable [phone] Encounter Details Date Type Department Care Team (Late Contact Info) Description 07/01/2022 Orders Only [facility] MED & PEDS [address] [place] [address] Rody Campbell LPN Social History Tobacco Use [...] Description 06/24/2024 3:30 PM EDT Office Visit [facility] OPTOMETRY [address] [place], [place] [phone] Anaid Núñez, OD [address] [place] [address] 07/15/2024 11:30 AM EDT Medication Management [facility] MEDICINE [address] [place], [place] [phone] Sophie Zapata, Maddy [address] [place] [address] documented as of this encounter Visit Diagnoses Not on filedocumented in this encounter Care Teams Building Stonecutter Relationship Specialty Start Date End Date Jen Sousa FNP [address] [place] [address] PCP - General Family Medicine 10/04/21 11/07/22 [place] FNP [address] [place] [id number] PCP - General Family Medicine 11/08/22 Vera Mcgovern, JessicaD [address] [place] [phone] Pharmacist Internal Medicine 08/20/23 documented as of this encounter
--- OUTSIDE RECORDS SUMMARY | 2024-06-18 13:50 | XMS_ITS ---
Author Organization [employer] Address [address] [place] [address] 7[address] [place] [address] Care Team Providers Care Tower Attendant Name Role Phone Angelique Bolaños FIRST MATE Primary Care Provider [phone] Vera Mcgovern PharmD Unavailable [phone] [facility] Status:Enrolled (Active) Start date:04/29/2024 Enrollment date:04/29/2024 Enrollment reason:ADT Feed Overview ED- Pt went to [facility] ED on 04/28. Case Team Name Relationship Phone Lauren Licea (Responsible Staff) [phone] Continued Care and Services Coordination
--- OUTSIDE RECORDS SUMMARY | 2024-06-18 13:50 | XMS_ITS | Encounter Summary ---
Author Organization [employer] Address [address] [facility] 7[address] [place] [address] Care Team Providers Care Math And Sciences Department Chair Name Role Phone Neon [facility] Primary Care Provider [phone] Vera Mcgovern PharmD Unavailable [phone] Reason for Visit * Reason Onset Date Comments Add address 06/01/2024 Encounter Details Date Type Department Care Team ([facility] st Contact Info) Description 06/01/2024 Telephone [facility] MEDICINE [address] [place], [place] [phone] [facility] [address] [place] [address] Add address Social History Tobacco Use Types [...] Y/N: Yes Provider name or facility name: [address] Escort needed: Y/N: Yes Do you have a wheelchair: Y/N: No If yes- Manual or electric: Visits: (amount of visits) ( x monthly, weekly, daily) documented in this encounter Plan of Treatment Upcoming Encounters Date Type Department Care Team (Late st Contact Info) Description 06/24/2024 3:30 PM EDT Office Visit [facility] OPTOMETRY [address] [place] [address] Anaid Núñez, OD [address] [place] [address] 07/15/2024 11:30 AM EDT Medication Management [facility] [address] [place] [address] Sophie Zapata PharmD [address] [place] [address] documented as of this encounter Goals Goal [...] documented as of this encounter Care Teams Math And Sciences Department Chair Relationship Specialty Start Date End Date Angelique Bolaños FNP [address] [place] [address] PCP - General Family Medicine 11/08/22 Vera Mcgovern PharmD [address] [place] [address] Pharmacist Internal Medicine 08/20/23 documented as of this encounter
--- OUTSIDE RECORDS SUMMARY | 2024-06-18 13:50 | XMS_ITS | Clinical Summary ---
Author Organization [employer] Address [address] [facility] 7[address] [place] [address] Care Team Providers Care M1 Armor Crewman Name Role Phone Angelique Bolaños GAS ADJUSTER Primary Care Provider [phone] Vera Mcgovern PharmD Unavailable [phone] Allergies Active Allergy Reactions Criticality Noted Date [...] 2 diabetes mellitus with other specified complication ([facility]) USE DIRECTED TO TEST BLOOD [...] hyperglycemia, with long-term current use of insulin ([facility]) Apply 1 sensor every 14 [...] hyperglycemia, with long-term current use of insulin ([facility]) Use as instructed 100 each 6 025 Active hydrocortisone (Anusol-HC) 2.5 % rectal creamIndications :Hemorrhoids, unspecified hemorrhoid type INSERT INTO THE RECTUM TWICE A DAY 20 g 025 Active Alcohol Swabs (Alcohol Prep) 70 % padsIndications: Type 2 diabetes mellitus with other specified complication, with long-term current use of insulin ([facility]) USE 1 TO CLEAN SKIN [...] with long-term current use of insulin ([facility]) USE TO TEST BLOOD SUGAR FOUR TIMES DAILY 1 kit Active glucose blood (OneTouch Ultra) test stripIndications :Type 2 diabetes mellitus with other specified complication, with long-term current use of insulin ([facility]) USE TO TEST BLOOD SUGAR FOUR TIMES DAILY 100 each 3 Active OneTouch Delica Lancets 33G miscIndications: Type 2 diabetes mellitus with other specified complication, with long-term current use of insulin ([facility]) USE TO TEST BLOOD SUGAR FOUR TIMES DAILY 100 each 5 Active insulin degludec (Tresiba FlexTouch) 200 UNIT/ML injectionIndicat ions:Type 2 diabetes mellitus with other specified complication, with long-term current use of insulin ([facility]) Inject 36 Units under the skin at bedtime. 3 mL Active Continuous Glucose Director Of Accounts Payable (FreeStyle Bri 3 [place]) deviceIndication s:Type 2 diabetes mellitus with hyperglycemia, with long-term current use of insulin (CMS/HCC) 1 each 4 times daily. 1 each Active FREESTYLE LITE test stripIndications :Type 2 diabetes mellitus with hyperglycemia, with long-term current use of insulin ([facility]) Use to test blood sugar 3 times daily 100 each 12 025 2025 Active Lancets miscIndications: Type 2 diabetes mellitus with hyperglycemia, with long-term current use of insulin ([facility]) Use to test blood sugar 3 times daily 100 each Active Alcohol Swabs 70 % padsIndications: Type 2 diabetes mellitus with hyperglycemia, with long-term current use of insulin ([facility]) Use to test blood sugar 3 times daily 100 each Active Blood Glucose Monitoring Suppl (FreeStyle Crescent Lite) w/Device kitIndications:T ype 2 diabetes mellitus with hyperglycemia, with long-term current use of insulin ([facility]) Use to test blood sugar 3 times daily 1 kit Active lidocaine (Lidoderm) 5 % patchIndications :Chronic pain of right knee Apply 1 patch topically Once per day. Remove & discard patch within 12 hours or as directed by MD. 30 patch 1 Active nitrofurantoin, macrocrystal-mon ohydrate, (Macrobid) 100 MG capsuleIndicatio ns:Urinary tract infection without hematuria, site unspecified Take 1 capsule (100 mg) by mouth 2 times daily for 7 days. 14 capsule 025 2024 Active Continuous Glucose Sensor (FreeStyle Bri 3 Plus Sensor) miscIndications: Type 2 diabetes mellitus with other specified complication, with long-term current use of insulin ([facility]) 1 each every 15 days. Apply 1 every 15 days as directed for CGM 2 each 11 Active ciprofloxacin (Cipro) 500 MG tabletIndication s:Recurrent UTI Take 1 tablet (500 mg) by mouth 2 times daily for 5 days. 10 tablet 025 2024 Active Blood Glucose Monitoring Suppl [...] not trigger notification to Pharmacy)) Continuous Glucose Director Of Accounts Payable (FreeStyle Bri 3 [place]) deviceIndication s:Type 2 diabetes mellitus with hyperglycemia, with long-term current use of insulin ([facility]) 1 each 4 times daily. 1 each 024 2024 Discontinued(R eorder (will not trigger notification to Pharmacy)) Dulaglutide (Trulicity) 4.5 MG/0.5ML solution auto-injectorInd ications:Type 2 diabetes mellitus with hyperglycemia, with long-term current use of insulin ([facility]) Inject 4.5 mg under the [...] hyperglycemia, with long-term current use of insulin ([facility]) TAKE 2 TABLETS BY MOUTH TWICE DAILY IN THE MORNING AND EVENING 360 tablet 3 025 2024 Discontinued(M ed list cleanup (will not trigger notification to Pharmacy)) lisinopril 2.5 MG tablet Take 2.5 mg by mouth in the morning. 025 2024 Discontinued propranolol (Inderal) 10 MG tabletIndication s:Other cirrhosis of liver ([facility]) Take 1 tablet (10 mg) by mouth Once per day. 30 tablet 11 025 2024 Discontinued(S top taking at discharge) insulin degludec (Tresiba FlexTouch) 200 UNIT/ML injectionIndicat ions:Type 2 diabetes mellitus with hypoglycemia without coma, with long-term current use of insulin ([facility]),Type 2 diabetes mellitus with hyperglycemia, with long-term current use of insulin ([facility]) INJECT 40 UNITS SUBCUTANEOUSLY TWICE DAILY DIRECTED 9 mL 2 025 2024 Discontinued(M ed list cleanup (will not trigger notification to Pharmacy)) lisinopril 2.5 MG tabletIndication s:Essential (primary) hypertension TAKE 1 TABLET BY MOUTH EVERY MORNING 90 tablet 1 025 2024 Discontinued(M ed list cleanup (will not trigger notification to Pharmacy)) Blood Glucose Monitoring Suppl (TidemarkStyle Lite) w/Device kit 1 each 4 times daily. 1 kit 025 2024 Discontinued insulin degludec (Tresiba FlexTouch) [...] Plan (05/19/2024 3:27 PM EDT): Seen at [facility] ED 05/17/24 for lower abdominal and left flank pain. Labs with urine culture showing 293 WBC. Presents today hemodynamically stable, but ill-appearing and in mild distress. Will send via ambulance to [facility] for further evaluation. Continuous severe abdominal pain 05/19/2024 Assessment & Plan (05/19/2024 3:26 PM EDT): Left flank pain, RUQ pain on exam. + CVA tenderness. Given pyuria and acute kidney injury on labs from [facility] ED visit 05/17/24, suspect possible acute pyelonephritis. Presents today hemodynamically stable, but ill-appearing and in mild distress. Will send via ambulance to [facility] for further evaluation. Acute flank pain 05/19/2024 Assessment & Plan (05/19/2024 3:26 PM EDT): Left flank pain on exam. + CVA tenderness. Given pyuria and acute kidney injury on labs from [facility] ED visit 05/17/24, suspect possible acute pyelonephritis. Presents today hemodynamically stable, but ill-appearing and in mild distress. Will send via ambulance to [facility] for further evaluation. Thrombocytopenia 05/19/2024 Assessment & Plan (05/19/2024 3:29 PM EDT): Like acute on chronic, worsening due to underlying bacterial infection. Pt was seen at [facility] ED 05/17/24 for lower abdominal and left flank pain. Labs showing platelets of 64. Presents today hemodynamically stable, but ill-appearing and in mild distress. Will send via ambulance to [facility] for further evaluation. Elevated lipase 05/19/2024 Assessment & Plan (05/19/2024 3:29 PM EDT): Pt was seen at [facility] ED 05/17/24 for lower abdominal and left flank pain. Labs showing lipase of 95. Presents today hemodynamically stable, but ill-appearing and in mild distress. Will send via ambulance to [facility] for further evaluation. Acute kidney injury 05/19/2024 Assessment & Plan (05/19/2024 3:27 PM EDT): Seen at [facility] 05/17/24 for lower abdominal and left flank pain. Labs with creatinine of 1.23. Presents today hemodynamically stable, but ill-appearing and in mild distress. Will send via ambulance to [facility] for further evaluation. 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 Provided [facility] contact information for sooner appointments. Provided psychoeducation around chronic pain and depression. At this time Billie Marítnez meets criteria for Visit Diagnoses: Problem List Items Addressed This Visit Other Chronic low back pain Major depressive disorder Anxiety Stress-related problem Patient ready to address current needs Yes Strengths include readiness to change PLAN: 1. Follow up with [facility]: Not recommended for follow-up 2. Patient goal [...] refer patient for OP individual therapy. Provided [facility] contact information for sooner appointments. Provided psychoeducation around chronic pain and depression. At this time Billie Martínez meets criteria for Visit Diagnoses: Problem List Items Addressed This Visit Other Chronic low back pain Major depressive disorder Anxiety Stress-related problem Patient ready to address current needs Yes Strengths include readiness to change PLAN: 1. Follow up with [facility]: Not recommended for follow-up 2. Patient goal [...] reports she still has not heard) ?? [facility] Management - due to schedule follow up appt ?? [facility] for cirrhosis of liver - due to establish as FLORAL CLERK Obstructive sleep apnea 05/21/2022 Overview (12/16/2022): ?? 11/2021-sleep study [facility] with moderate CIPRIANO Assessment & Plan (12/16/2022 4:27 PM EST): ?? Located sleep study report from 11/2021 ?? Message sent to DME specialist to initiate CPAP Assessment & Plan (05/21/2022 6:08 PM EDT): -DME request generated 12/05/21 -Pt reports still pending Chronic low back pain 01/19/2022 Overview (12/13/2022): Previously followed by [facility] pain mngmt. Lost to follow up. Rx'd tramadol by previous PCP which was discontinued due to lack of compliance with [employer] agreement. Pt reports widespread chronic pain. Found tramadol minimally helpful. Hx of PT without improvement. Assessment & Plan (01/20/2024 8:11 PM EST): Take tylenol prn, had a recent fall. Rx bath tub bench + hand held shower. 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 FU with PCP Assessment & Plan (01/30/2022 6:52 PM EST): -Previously following with [facility] Pain management, last consult note available from Mar 2021 -Plan to review MRI findings and discuss tx plan -Pt reports was not able to make follow up appt due to difficulties with transportation -Will request [place] assist with arranging PT1 services, referral to SDOH team if needed -Encourage pt to call [facility] Pain management to reschedule appt, call if [...] recent CBC ?? Will re-submit referral to [facility] ?? Emphasized importance of completing referral ?? ED precautions reviewed ?? Liver enzymes 11/06/22 with mild elevation Lab Results Component Value Date ALT 22 11/06/2022 AST 38 (H) 11/06/2022 Assessment & Plan (05/21/2022 6:09 PM EDT): -Pt previously referred to [facility] but was unable to make appt due to transportation barriers -Printed out referral placed earlier this year to [facility] for pt to call to reschedule -Believe pt is already established with PT-1 visits for [facility], but will request to confirm -Re-started Hep B series Assessment & Plan (01/30/2022 6:56 PM EST): -Pt previously referred to [facility] but was unable to make appt due to transportation barriers -Printed out referral placed earlier this year to [facility] for pt to call to reschedule -Believe pt is already established with PT-1 visits for [facility], but will request to confirm [...] CREATININE 0.96 05/27/2024 -Changes: I went up nik on her long acting insulin to 36U [...] ?? Pt missed iniital phone call from [facility] DM educator-will request they reach out again ?? Emphasized importance of regular BS monitoring with insulin use and risks of hypoglycemia Assessment & Plan (03/25/2022 9:32 AM EST): -Continue with insulin degludec 45 units BID -Continue with lispro 5 units TID AC -Will request DME request for CGM through [facility] Diabetes RN -Recheck A1c at follow up appt -ED precautions reviewed Assessment & Plan (01/30/2022 6:54 PM EST): -Continue with insulin degludec 45 units BID -Continue with lispro 5 units TID AC -Will request DME request for CGM through [facility] Diabetes RN -Recheck A1c at follow [...] refer patient for OP individual therapy. Provided [facility] contact information for sooner appointments. Provided psychoeducation around chronic pain and depression. At this time Billie Martínez meets criteria for Visit Diagnoses: Problem List Items Addressed This Visit Other Chronic low back pain Major depressive disorder Anxiety Stress-related problem Patient ready to address current needs Yes Strengths include readiness to change PLAN: 1. Follow up with [facility]: Not recommended for follow-up 2. Patient goal [...] organization. Date Type Department Care Team Description 06/18/2024 Telephone [facility] MEDICINE [address] [place] [id number] Rachelle Clark RN Results 06/18/2024 Orders Only [address] [address] Bernadine Rodriguez MD Recurrent UTI (Primary Dx) 06/17/2024 Orders Only [address] [address] Bernadine Rodriguez MD Type 2 diabetes mellitus with other specified complication, with long-term current use of insulin (CMS/HCC) (Primary Dx) 06/16/2024 9:30 AM EDT Office Visit [address] [address] Bernadine Rodriguez MD Type 2 diabetes mellitus with other specified complication, with long-term current use of insulin (CMS/HCC) (Primary Dx); Thrombocytopenia (CMS/HCC); Other cirrhosis of liver (CMS/HCC); Depression with anxiety; Type 2 diabetes mellitus with hyperglycemia, with long-term current use of insulin (CMS/HCC); Chronic pain of right knee; Urinary tract infection without hematuria, site unspecified; Recurrent UTI 06/16/2024 Travel 06/15/[address] [address] Bernadine Rodriguez MD Chart Prep 06/10/2024 Patient Outreach [facility] [address] [facility] [place] [address] [facility] Care Coordination 06/10/2024 Patient Outreach [facility] [address] [facility] [place] [address] [facility] 06/08/2024 Telephone [facility] [address] [facility] [place] [address] [facility] HDF 06/04/2024 Refill [facility] [address] [facility] [place] [address] Gretchen Romano MD Type 2 diabetes mellitus with hypoglycemia without coma, with long-term current use of insulin ([facility]); Type 2 diabetes mellitus with hyperglycemia, with long-term current use of insulin ([facility]) 06/03/2024 Telephone [facility] [address] [facility] [place] [address] [facility] Chart prep 06/01/2024 Telephone [facility] [address] [facility] [place] [address] [facility] 06/01/2024 Patient Outreach [facility] [address] [facility] [place] [address] [facility] Care Coordination (CHW outreach for SDOH PT-1 - LVM ) 06/01/2024 Telephone [facility] [place] [address] [facility] Add address 06/01/2024 Telephone [facility] [place] [address] [facility] Pt1 05/28/2024 Refill [facility] [address] [place] [address] [facility] Type 2 diabetes mellitus with other specified complication, with long-term current use of insulin ([facility]) 05/27/2024 Orders Only GENERIC EXTERNAL DATA DEPARTMENT Provider, Generic External Data 05/27/2024 Refill [facility] [place] [address] Janeth Fu, PharmD 05/27/2024 Telephone [facility] [address] [place] [address] [facility] Nurse Triage 05/27/2024 Patient Outreach [facility] [address] [place] [address] [facility] Care Coordination 05/27/2024 Telephone [facility] MED[facility] [address] [place] [address] Janeth Fu, Maddy 05/25/[address] [facility] [address] [place], [place] [phone] [facility] Transition Of Care (Tcm) (HDF scheduled.) 05/24/[address] [facility] [address] [place] [address] [facility] Transition Of Care (Tcm) (HDF unscheduled.) 05/24/2024 Telephone [facility] MEDICINE [address] [place] [address] [facility] Hospital Follow-up 05/24/2024 Travel 05/20/2024 Outside Procedure [facility] OPTOMETRY [address] [place] [address] WiltonFredn, OD Presbyopia (Primary Dx) 05/20/[address] [facility] [address] [place], [place] [phone] [facility] Essential (primary) hypertension 05/19/2024 3:00 PM EDT Office Visit [facility] [address] [place] [address] Gretchen Romano MD Pyuria (Primary Dx); Continuous severe abdominal pain; Acute flank pain; Thrombocytopenia (CMS/HCC); Elevated lipase; Acute kidney injury (CMS/HCC) 05/19/2024 2:30 PM EDT Office Visit [facility] OPTOMETRY [address] [place] [address] WiltonFred solorzanon, OD Severe myopia of both eyes (Primary Dx) 05/19/2024 Orders Only GENERIC EXTERNAL DATA DEPARTMENT Provider, Generic External Data 05/19/2024 Travel 05/19/2024 Telephone [facility] MEDICINE [address] [place] [phone] [employer], [facility] [employer] 05/18/2024 Patient Outreach [facility] [address] [place] [address] [employer], [facility] 05/17/2024 Telephone [facility] [address] [place] [address] [employer], [facility] Nurse Triage 05/14/2024 Patient Outreach [facility] [address] [place] [address] [facility] 05/14/2024 Patient Outreach [facility] [address] [place] [address] [facility] Care Management (C3CM- Initial assessment/enrollmen t) 05/13/2024 Patient Outreach [facility] [address] [place] [address] [facility] 05/13/2024 Patient Outreach [address] [address] [facility] Care Coordination 05/13/2024 Patient Outreach [facility] [address] [place] [address] [facility] Care Coordination (C3 -[facility] Lauren Licea telephone call outreach) 05/11/2024 Telephone [facility] MED[facility]INE [address] [place] [address], [place] [address] [employer] [facility] Prior Authorization 05/10/[address] [place] [address] [facility] Other cirrhosis of liver ([facility]/HCC); Type 2 diabetes mellitus with hypoglycemia without coma, with long-term current use of insulin (CMS/HCC); Type 2 diabetes mellitus with hyperglycemia, with long-term current use of insulin (CMS/HCC) 04/30/2024 Telephone [facility] OPTOMETRY [address] [place] [address] Wilton, Anaid, OD 04/29/2024 Patient Outreach [facility] [address] [place] [address] [employer], [facility] Care Coordination (C3 CM-FRITZ Licea chart review/) 04/29/2024 Patient Outreach [facility] [address] [place] [address] [facility] 04/29/2024 Patient Outreach [facility] [address] [place] [address] [facility] Care Coordination (C3CM- chart review) 04/29/2024 Patient Outreach [facility] [address] [place] [address] [facility] 04/26/2024 Telephone [facility] [address] [place] [address] [facility] Nurse Triage 04/23/2024 Population Health Risk Score [facility] (C3) [address] [phone] Provider, Population Health Generic 04/18/2024 Refill [facility] [address] [facility] [place] [address] [facility] Chronic bilateral low back pain, unspecified whether sciatica present 04/05/2024 Orders Only [facility] MED[facility] [address] [place] [address] Lisha Maxwell MD Type 2 diabetes mellitus with other specified complication, with long-term current use of insulin (CMS/HCC) (Primary Dx) 04/02/2024 Telephone [facility] [address] [facility] [place] [address] [place] Angelique [facility] 04/02/2024 Telephone [facility] [address] [facility] [place] [address] Teresa Darden, RN Results 03/26/2024 Refill [facility] [address] [facility] [place] [address] [facility] Type 2 diabetes mellitus with other specified complication, with long-term current use of insulin (CMS/HCC); Anxiety from Last 3 Months Immunizations Name [...] [facility] [address] [place] [address] Wilton, Anaid, OD [address] [place] [address] 07/15/2024 11:30 AM EDT Medication Management [facility] [address] [place] [address] Sophie Zapata, PharmD [address] [place] [address] Health Maintenance Due Date Last Done Comments [...] 05/13/2025 05/13/2024 Depression Screening 06/16/2025 06/16/2024, 06/17/19 25 Tobacco Screening 06/16/2025 06/16/2024 Eye Exam 03/17/2026 03/17/2024, 0206/2024, 03/17/2024, Additional [...] Procedure Name Priority Date/Time Associated Diagnosis Comments CULTURE, URINE, ROUTINE Routine 06/16/2024 11:04 AM EDT Urinary tract infection without hematuria, site unspecified POCT URINALYSIS DIPSTICK Routine 06/16/2024 10:58 AM EDT Urinary tract infection without hematuria, site unspecified POCT GLYCATED HEMOGLOBIN, TOTAL Routine 06/16/2024 10:29 AM EDT Type 2 diabetes mellitus with other specified complication, with long-term current use of insulin ([facility]) POCT GLUCOSE Routine 06/16/2024 10:28 AM EDT Type 2 diabetes mellitus with other specified complication, with long-term current use of insulin ([facility]) CT ABDOMEN PELVIS W CONTRAST [...] hyperglycemia, with long-term current use of insulin ([facility]) ALBUMIN, RANDOM URINE W/CREATININE Routine 09/18/2023 12:18 PM EDT HEPATITIS PANEL, GENERAL Routine 11/06/2022 9:28 AM EDT Healthcare maintenance HIV ANTIBODY/ANTIGEN ([facility]) Routine 11/06/2022 9:28 AM EDT from Last 3 Months or Most Recently Relevant to Health Maintenance Results * Culture, Urine, Routine (06/16/2024 11:04 AM EDT) Only the most recent of2 resultswithin the time period is included. Urine Urine specimen obtained by clean catch procedure / Unknown 06/16/2024 11:04 AM EDT 06/16/2024 6:02 PM EDT Comment:[facility] - 06/18/2024 7:26 AM EDT Serratia marcescens Quant > 100,000 cfu/mL Serratia marcescens: Cefazolin >=32(R) Serratia marcescens: Cefepime <=0.12(S) Serratia marcescens: Ceftriaxone <=0.25(S) Serratia marcescens: Ciprofloxacin <=0.06(S) Serratia marcescens: Gentamicin <=1(S) Serratia marcescens: Trimethoprim/Sulfamethoxazole <=20(S) Specimen Source: Urine clean catch us Bernadine Martínez MD LAB MICROBIOLOGY - NERAL ORDERABLES Final Result [facility] [address] [place] [phone] * (ABNORMAL) POCT Urinalysis (06/16/2024 10:58 AM [...] Date Urine 06/16/2024 10:5 8 AM EDT Bernadine Martínez MD POINT OF CARE TEST EN TER/EDIT ORDERABLES Final Result * (ABNORMAL) POCT HGB A1C (06/16/2024 10:29 AM EDT) Hemoglobin A1C 8.1(A) 4.0 - 6.0 % QC Media Lot # [id number] Lot# Expiration Date Blood 06/16/2024 10:2 9 AM EDT Result [facility] Bernadine Martínez MD POINT OF CARE TEST EN TER/EDIT ORDERABLES Final Result * (ABNORMAL) POCT Glucose (06/16/2024 10:28 AM EDT) Glucose Blood, POC 0(A) 60 - 200 mg/dL Comment:[facility] QC Media Lot # [id number] Lot# Expiration Date Blood Capillary blood specimen / Unknown 06/16/2024 10:28 AM EDT Result [facility] Bernadine Martínez MD POINT OF CARE TEST EN TER/EDIT ORDERABLES Final Result * CT Abdomen Pelvis w/ Contrast (05/27/2024 11:35 PM EDT) Only the most recent of2 resultswithin the time period is included. Anatomical Region Laterality Modality Body, Pelvis, Abdomen Computed T omography 05/27/2024 11:3 5 PM EDT Narrative 05/27/2024 11:37 PM EDT ? [facility] ?[address] ?[place] [address] ? CT Scan Report ? Signed ? Patient: Martínez,Billie ?MR#: [id number] ?? [id number] ? : 1975 ?Acct:[id number] ? Age/Sex: 48 / F ?ADM Date: 05/27/24 ? Loc: HO.ED ? Attending Dr: ? Ordering Physician: Sarah Grimes ?? Date of Service: 05/27/24 ?? Procedure(s): CT abdomen pelvis w IV con ?? Accession Number(s): [id number] ? cc: Sarah Grimes; Angelique Bolaños GAS ADJUSTER ? Report Number: ?? [id number]: Total DLP = 1531.00 mGy-cm ? CLINICAL [...] 05/27/246 ? DD/ ? TD/TT: 05/27/245 ? Database Programmer: ? Procedure Note Maxine, Paresh - 05/27/[address] [address] [address] Scan Report Signed Patient: Billie MartínezMR#: [id number] : 1975Acct:[id number] Age/Sex: 48 / FADM Date: 05/27/24 Loc: HO.ED Attending Dr: Ordering Physician: Sarah Grimes Date of Service: 05/27/24 Procedure(s): CT abdomen pelvis w IV con Accession Number(s): [id number] cc: Sarah Grimes; [facility] Report Number: [id number]: Total DLP = 1531.00 mGy-cm CLINICAL HISTORY: [...] in OV> 05/27/242335 DD/ 34 TD/TT: 05/27/242334 Database Programmer: [facility] External Provider IMG CT PROCEDURES Edited Result - Final * (ABNORMAL) Urinalysis, Complete, with Reflex to Culture (05/27/2024 9:15 PM EDT) Only the most recent of2 resultswithin the time period is included. Color Urine Yellow [facility] Appearance Urine Clear [facility] PH 6.5 5.0 - 9.0 [facility] Glucose Urine UA Negative Negative mg/dL [facility] Urine Blood Negative Negative [facility] Specific [place] - Urine 1.020 1.005 - 1.025 [facility] Urine Protein 100 (2+)(A) Neg-Trace mg/dL [facility] Urine Ketones Negative Negative mg/dL [facility] Nitrite Urine Negative Negative [facility] Leukocyte Esterase Urine Negative Negative [facility] RBC Urine 0-2 0 - 2 /HPF [facility] Urine WBC 6-10(A) 0 - 5 /HPF [facility] Urine Squamous Epithelial Cell 3-5 0 - 2 /HPF [facility] Urine Bacteria Trace None Seen [facility] Hyaline Casts, Urine 0-2 0 - 2 /LPF [facility] 05/27/2024 9:15 PM EDT 05/27/2024 9:18 PM EDT Narrative [facility] - 05/27/2024 9:35 PM EDT Urine, Clean Catch us Generic External Data Provider LAB URINE ORDERAB LES Final Result [facility] [address] [place] [address] [phone] * (ABNORMAL) CBC auto differential (05/27/2024 7:23 PM EDT) Only the most recent of2 resultswithin the time period is included. White Blood Count 2.8(L) 4.8 - 10.8 X10*3/uL [facility] Red Blood Count 3.98(L) 4.20 - 5.50 X10*6/uL [facility] Hemoglobin 12.3 12.0 - 16.0 g/dl [facility] Hematocrit 36.4(L) 37.0 - 47.0 % [facility] Mean Corpuscular Volume 91.5 80.0 - 98.0 fL [facility] Mean Corpuscular Hemoglobin 30.9 27.0 - 33.0 pg [facility] Mean Corpuscular HGB Conc 33.8 31.0 - 35.0 g/dl [facility] Red Cell Distribution Width 15.9 11.0 - 16.0 % [facility] Platelet Count 63(L) 160 - 400 X10*3/uL [facility] Mean Platelet Volume 10.5 9.4 - 12.3 fL [facility] Neutrophils Percent Auto 59.2 45 - 73 % [facility] Imm Gran Pct Auto 0.0 0.0 - 0.4 % [facility] Lymphocytes Percent Auto 35.7 20 - 40 % [facility] Monocytes Percent Auto 4.3 2 - 11 % [facility] Eosinophils Percent Auto 0.4 0 - 4 % [facility] Basophils Percent Auto 0.4 0 - 2 % [facility] NRBC Pct Auto 0.0 0.0 - 0.2 /100WBC [facility] Neutrophils Absolute Auto 1.7(L) 2.0 - 8.3 x10*3/uL [facility] Imm Gran Abs Auto 0.00 0.00 - 0.03 X10*3/uL [facility] Lymphocytes Absolute Auto 1.0(L) 1.2 - 4.9 X10*3/uL [facility] Monocytes Absolute Auto 0.1 0.1 - 1.2 X10*3/uL [facility] Eosinophils Absolute Auto 0.0 0.0 - 0.4 X10*3/uL [facility] Basophils Absolute Auto 0.0 0.0 - 0.2 X10*3/uL [facility] NRBC Abs Auto 0.000 0.0 - 0.012 X10*3/uL [facility] 05/27/2024 7:23 PM EDT 05/27/2024 7:25 PM EDT us Generic External Data Provider LAB BLOOD ORDERAB LES Final Result [facility] [address] [place] [address] [phone] * (ABNORMAL) Prothrombin Time-INR (05/27/2024 7:23 PM EDT) Prothrombin Time 13.8(H) 10.9 - 12.4 SEC [facility] INTERNATIONAL NORM RATIO 1.2(H) 0.9 - 1.1 [facility] Comment:INTERNATIONAL NORMAL IZED RATIO (INR) REFERENCE [...] ORDERAB LES Final Result Performing Organization Address City/[facility] Co de Phone Number [facility] [address] [place] [address] [phone] * Lipase (05/27/2024 7:23 PM EDT) Only the most recent of2 resultswithin the time period is included. Lipase 60 8 - 78 U/L [facility] 05/27/2024 7:23 PM EDT 05/27/2024 7:25 PM EDT us Generic External Data Provider LAB BLOOD ORDERAB LES Final Result Performing Organization Address City/[facility] Co de Phone Number [facility] [address] [place] [address] [phone] * (ABNORMAL) Comprehensive Metabolic Panel (05/27/2024 7:23 PM EDT) Only the most recent of2 resultswithin the time period is included. Sodium 140 135 - 145 mmol/L [facility] Potassium 3.4 3.3 - 5.1 mmol/L [facility] Chloride 110(H) 96 - 108 mmol/L [facility] Carbon Dioxide 19(L) 22 - 29 mmol/L [facility] Anion Gap 14 12 - 20 [facility] Urea Nitrogen (BUN) 9 9 - 16 mg/dL [facility] Creatinine, Serum 0.96 0.5 - 1.4 mg/dL [facility] Creatinine Clr Calc Pharmacy 94.6 [facility] Comment:Provided height and weight: 167.64 cm,122.47 kg.eGFR (calculated from the MDRD study equation) and eCrCl(calculated from the Cockcroft-Gault equation) are based ondifferent parameters and may not yield comparable results.If eCrCl result is absurd, please check patient'sheight/weight. Estimated Glomerular Filt Rate >60 [facility] Comment:Chronic Kidney Disea se: Estimated GFR < 60 mL/min/[id number] Kidney Disease: Estimated GFR < 15 mL/min/1.73m2 Glucose 239(H) 60 - 115 mg/dL [facility] Calcium 9.2 8.4 - 10.2 mg/dL [facility] Bilirubin, Total 0.9 0.0 - 1.0 mg/dL [facility] Aspartate Amino Transferase 40(H) 5 - 31 U/L [facility] Alanine Aminotransferase 21 0 - 31 U/L [facility] Total Protein 7.5 6.5 - 8.0 g/dL [facility] Albumin Level 3.1(L) 3.5 - 5.0 g/dL [facility] Alkaline Phosphatase 232(H) 39 - 117 U/L [facility] 05/27/2024 7:23 PM EDT 05/27/2024 7:25 PM EDT us Generic External Data Provider LAB BLOOD ORDERAB LES Final Result [facility] [address] [place] [phone] * (ABNORMAL) Lactic Acid (05/19/2024 11:03 PM EDT) Only the most recent of2 resultswithin the time period is included. Lactic Acid 2.8(HH) 0.5 - 2.0 mmol/L [facility] Comment:Critical value for t est(s):LACTA Results called to alonzo back by:ROLA Person calling:AMRITAate:05/19/2024 Time:23:31 05/19/2024 11:0 3 PM EDT 05/19/2024 11:07 PM EDT us Generic External Data Provider LAB BLOOD ORDERAB LES Final Result [facility] [address] [place] [address] [phone] * SARS-CoV-2 RNA, Influenza A/B, and RSV RNA, Ql NAAT (05/19/2024 4:35 PM EDT) Pathologist [facility] Influenza A PCR NEGATIVE Negative [facility] Influenza B PCR NEGATIVE Negative [facility] Resp Syncy Virus RNA Qual PCR NEGATIVE Negative [facility] SARS COV2 PCR NEGATIVE Negative [facility] Comment:All test results mus t [...] use by authorized laboratories.Testing performed on the [employer] GeneXpert utilizingreal-time RT-PCR.All SARS CoV2 and positive influenza A/B results arereported to [facility]. 05/19/2024 4:35 PM EDT 05/19/2024 4:42 PM EDT Generic External Data Provider LAB MICROBIOLOGY - GENERAL ORDERABLES Final Result Performing Organization Address [facility] Co de Phone Number [facility] [address] [place] [address] [phone] * Slide Review (05/19/2024 4:34 PM EDT) Slide Review VERIFIED [facility] 05/19/2024 4:34 PM EDT 05/19/2024 4:42 PM EDT Generic External Data Provider LAB BLOOD ORDERAB LES Final Result Performing Organization Address [facility] Phone Number [facility] [address] [place] [address] [phone] * High Sensitivity Troponin I (05/19/2024 4:34 PM EDT) Pathologist [facility] TROPONIN I HIGH SENSITIVITY <2.7 <3.5 - 17.0 ng/L [facility] Comment:The Vela high sens itivity Troponin-I results should beused in conjunction with other diagnostic information suchas ECG, clinical observations and information, and patientsymptoms to aid in the diagnosis of [place]. 05/19/2024 4:34 PM EDT 05/19/2024 4:42 PM EDT Generic External Data Provider LAB BLOOD ORDERAB LES Final Result Performing Organization Address [facility] de Phone Number [facility] [address] [place] [address] [phone] * Beta-Hydroxybutyrate (05/19/2024 4:34 PM EDT) Beta-Hydroxybut yrate 0.15 0.02 - 0.27 mmol/L [facility] 05/19/2024 4:34 PM EDT 05/19/2024 5:14 PM EDT Generic External Data Provider LAB BLOOD ORDERAB LES Final Result Performing Organization Address [facility] Co de Phone Number [facility] [address] [place] [address] [phone] * (ABNORMAL) C-reactive Protein (05/19/2024 4:34 PM EDT) C Reactive Protein 2.84(H) < or = 0.50 mg/dL [facility] 05/19/2024 4:34 PM EDT 05/19/2024 5:14 PM EDT Generic External Data Provider LAB BLOOD ORDERAB LES Final Result Performing Organization Address [facility] Co de Phone Number [facility] [address] [place] [address] [phone] * Magnesium (05/19/2024 4:34 PM EDT) Magnesium 2.1 1.6 - 2.6 mg/dL [facility] 05/19/2024 4:34 PM EDT 05/19/2024 5:14 PM EDT Generic External Data Provider LAB BLOOD ORDERAB LES Final Result Performing Organization Address [facility] de Phone Number [facility] [address] [place] [address] [phone] * (ABNORMAL) Lactic Acid (05/19/2024 4:34 PM EDT) Lactic Acid 3.4(HH) 0.5 - 2.0 mmol/L [facility] Comment:Critical value for t est(s): LACTA Results called to alonzo back by: EMELY Person calling: LARONC Date: 05/19/24Time: 1703 05/19/2024 4:34 PM EDT 05/19/2024 4:39 PM EDT Generic External Data Provider LAB BLOOD ORDERAB LES Final Result Performing Organization Address City/[facility]/ZIP Co de Phone Number [facility] [address] [place] [address] [phone] * Bilirubin, Direct (05/19/2024 4:34 PM EDT) Bilirubin, Direct 0.4 0.0 - 0.5 mg/dL [facility] 05/19/2024 4:34 PM EDT 05/19/2024 5:14 PM EDT Generic External Data Provider LAB BLOOD ORDERAB LES Final Result Performing Organization Address [facility] Co de Phone Number [facility] [address] [place] [address] [phone] * (ABNORMAL) Lipid Panel, Standard (02/18/2024 12:20 PM EST) Triglycerides 110 <150 mg/dL [facility] Comment:Desirable Triglyceri de: less than 150 mg/dLBorderline High Triglyceride 150-199 mg/dLHigh Triglyceride: 200-499 mg/dLVery High Triglyceride: greater than or equal to 5OO mg/dL Cholesterol 52 <200 mg/dL [facility] Comment:Desirable Cholestero l: less than 200 mg/dLBorderline High Cholesterol: 200-239 mg/dLHigh Cholesterol: greater than 239 mg/dL LDL Cholesterol Calculated 13 <100 mg/dL [facility] Comment:Desirable LDL: less than 100 mg/dLNear Optimal/Above Optimal LDL: 110- 129 mg/dLBorderline High LDL: 130-159 mg/dLHigh LDL: 160-189 mg/dLVery High LDL: greater than or equal to 190 mg/dL HDL Cholesterol 17(L) >40 mg/dL [facility] Comment:Desirable HDL: great er than 40 mg/dL Note: This HDL assay may give artificially low results in patients with liver disease. Blood Venous blood specimen / Unknown 02/18/2024 12:20 PM EST 02/18/2024 1:04 PM EST [facility] LAB BLOOD ORDERABLES Final Re sult Performing Organization Address [facility] de Phone Number [facility] [address] [place] [address] [phone] * (ABNORMAL) Albumin, Random Urine W/Creatinine (09/18/2023 12:18 PM EDT) Creatinine, Urine 24.90 mg/dL [facility] Microalbumin Urine 43.0 mg/L H [facility] Microalbum Creatinine Ratio Ur 172.6(H) <30 ug/mg cr [facility] Comment:Albumin/Creatinine R atio Reference Ranges: Normal: < 30 ug/mg creatinine Microalbuminuria: 30 - 300 ug/mg creatinineClinical Albuminuria: > 300 ug/mg creatinine 09/18/2023 12:1 8 PM EDT 09/18/2023 4:01 PM EDT [facility] LAB URINE ORDERABLES Final Re sult Performing Organization Address [facility] de Phone Number [facility] [address] [place] [address] [phone] * HIV Ab/Ag (HAO MADSEN) (11/06/2022 9:28 AM EDT) HIV AB/AG Nonreactive Nonreactive [facility] Comment:HIV-1 p24 Ag and/or HIV-1/HIV-2 Ab not detected.A test result that is nonreactive does not exclude thepossibility of exposure to or infection with HIV-1 and/orHIV-2. Nonreactive results in this assay for individualswith prior exposure to HIV-1 and/or HIV-2 may be due toantigen and antibody levels that are below the limit ofdetection of this assay.The sli.do HIV Ag/Ab Combo assay result andsupplemental assay results should be interpreted inconjunction with the patient's clinical presentation,history and other laboratory results. If the results areinconsistent with clinical evidence, additional testing issuggested to confirm the result. 11/06/2022 9:28 AM EDT 11/06/2022 5:17 PM EDT [facility] LAB BLOOD ORDERABLES Final Re sult Performing Organization Address [facility] de Phone Number [facility] [address] [place] [phone] * Hepatitis Panel, General (11/06/2022 9:28 AM EDT) Hepatitis A IgM Nonreactive Nonreactive [facility] Comment:IgM antibodies to ZURITA V not detected; does not exclude earlyacute or recovered HAV infection. ~Hepatitis B Surface Antibody NONREACTIVE Nonreactive [facility] Comment:Nonreactive: < 8.00 mIU/mL Hepatitis B Core Antibody Nonreactive Nonreactive [facility] Hepatitis C Antibody Nonreactive Nonreactive [facility] Comment:Antibodies to HCV no t detected; does not exclude early acuteHCV infection. Hepatitis B Surface Ag Negative Negative [facility] Blood 11/06/2022 9:28 AM EDT 11/06/2022 5:17 PM EDT [facility] LAB BLOOD ORDERABLES Final Re sult Performing Organization Address [facility] de Phone Number [facility] [address] [place] [phone] from Last 3 Months or Most Recently Relevant to Health Maintenance Insurance [facility] C3 Care Teams M1 Armor Crewman Relationship Specialty Start Date End Date Angelique Bolaños FNP [address] [place] [address] PCP - General Family Medicine 11/08/22 Vera Mcgovern PharmD [address] [place] [address] Pharmacist Internal Medicine 08/20/23
--- OUTSIDE RECORDS SUMMARY | 2024-06-18 13:50 | XMS_ITS | Encounter Summary ---
Author Organization [employer] Address [address] [facility] [address] [place] [address] Care Team Providers Care Community Advocate Name Role Phone Mami [facility] Primary Care Provider [phone] Vera Mcgovern PharmD Unavailable [phone] Reason for Visit * Reason Onset Date Comments Nurse Triage 01/16/2023 Encounter Details Date Type Department Care Team ([facility] st Contact Info) Description 01/16/2023 Telephone [facility] MEDICINE [address] [place], [place] [phone] [place] [facility] [address] [place] [address] Nurse Triage Social History Tobacco Use Types [...] notes. Pt Scheduled 01/22/2023 at 8:30 am [facility]. Pt agrees to keep this appt and will seek WIC for pain. Protocol Used: Abdominal Pain - Upper (Adult) Protocol-Based Disposition: See in Office or Video Visit within 2 Weeks Future Appointments Date Time Provider Department Center 03/03/2023 12:15 PM [facility] Positive Triage Question: * Abdominal pain [...] [facility] OPTOMETRY [address] [place] [address] Wilton, Anaid, OD [address] [place] [address] 07/15/2024 11:30 AM EDT Medication Management [facility] MEDICINE [address] [place] [address] Sophie Zapata PharmD [address] [place] [address] documented as of this encounter Visit Diagnoses Not on filedocumented in this encounter Additional Health Concerns Assessment Noted Time PHQ-9 Depression Total Score: 24 023 3:37 PM EDT documented as of this encounter Care Teams Community Advocate Relationship Specialty Start Date End Date Angelique Bolaños FNP [address] [place] [address] PCP - General Family Medicine 11/08/22 Vera Mcgovern, Maddy [address] [place], [place] [phone] Pharmacist Internal Medicine 08/20/23 documented as of this encounter
--- OUTSIDE RECORDS SUMMARY | 2024-06-18 13:50 | XMS_ITS ---
Author Organization [employer] Address [address] [place] [address] [address]t [place] [address] Care Team Providers Care Sheetrock Applicator Name Role Phone Angelique Bolaños CATHODE [employer] SALVAGE PROCESSOR Primary Care Provider [phone] Vera Mcgovern PharmD Unavailable [phone] CM Complex Status:Outreach In Progress (Enrolling) Start date:04/29/2024 Enrollment reason:ADT Feed Overview ED- Pt went to [facility] ED on 04/28. Case Team Name Relationship Phone Saúl Urbina RN Registered Nurse(Responsible St aff) [phone] Continued Care and Services Coordination
--- OUTSIDE RECORDS SUMMARY | 2024-06-18 13:50 | XMS_ITS | Encounter Summary ---
Author Organization [employer] Address [address] [place] [address] 7t [place] [address] Care Team Providers Care Wardrobe Stylist Name Role Phone Mami [facility] Primary Care Provider [phone] Vera Mcgovern PharmD Unavailable [phone] Reason for Visit * Reason Comments Med Refill Encounter Details Date Type Department Care Team (Late Contact Info) Description 11/12/2022 Refill [facility] DIABETES/NUTRITION [address] [place] [address] [facility], [facility] [address] [place] [address] Social History Tobacco Use Types Packs/Day Years [...] 3:30 PM EDT Office Visit [facility] OPTOMETRY [address] [place] [address] Wilton, Anaid, OD [address] [place] [address] 07/15/2024 11:30 AM EDT Medication Management [facility] MEDICINE [address] [place] [address] Sophie Zapata, PharmD [address] [place] [address] documented as of this encounter Visit Diagnoses Not on filedocumented in this encounter Additional Health Concerns Assessment Noted Time PHQ-9 Depression Total Score: 24 023 3:16 PM EDT documented as of this encounter Care Teams Wardrobe Stylist Relationship Specialty Start Date End Date Angelique Bolaños FNP [address] [place] [phone] PCP - General Family Medicine 11/08/22 Vera Mcgovern, JessicaD [address] [place] [phone] Pharmacist Internal Medicine 08/20/23 documented as of this encounter
--- OUTSIDE RECORDS SUMMARY | 2024-06-18 13:50 | XMS_ITS | Encounter Summary ---
Author Organization [employer] Address 75 [facility] 7t [place] [address] Care Team Providers Care Senior Government Program Analyst Name Role Phone Angelique Bolaños [facility] Primary Care Provider [phone] Vera Mcgovern PharmD Unavailable [phone] Reason for Visit * Reason Comments Med Refill Encounter Details Date Type Department Care Team ([facility] Contact Info) Description 01/24/2023 Refill [facility] CHC MED & PEDS [address] [place], [place] [phone] Jne Sousa FNP 505 [place] [address] Type 2 diabetes mellitus with hyperglycemia, with long-term current use of insulin ([facility]) Social History Tobacco Use Types Packs/Day Years [...] 3:30 PM EDT Office Visit [facility] OPTOMETRY [address] [place] [address] Wilton, Anaid, OD 230 [place] [address] 07/15/2024 11:30 AM EDT Medication Management [facility] MEDICINE [address] [place] [address] Sophie Zapata PharmD 230 [place] [address] documented as of this encounter Visit Diagnoses Diagnosis Type 2 diabetes mellitus with hyperglycemia, with long-term current use of insulin ([facility]) documented in this encounter Additional Health Concerns Assessment Noted Time PHQ-9 Depression Total Score: 24 023 3:37 PM EDT documented as of this encounter Care Teams Senior Government Program Analyst Relationship Specialty Start Date End Date Angelique Bolaños FNP [address] [place] [address] PCP - General Family Medicine 11/08/22 Vera Mcgovern, JessicaD [address] [place] [address], [place] [address] Pharmacist Internal Medicine 08/20/23 documented as of this encounter
--- OUTSIDE RECORDS SUMMARY | 2024-06-18 13:50 | XMS_ITS | Encounter Summary ---
Author Organization [employer] Address [address] [facility] 7t [place] [address] Care Team Providers Care Snuff Box Finisher Name Role Phone [facility] Primary Care Provider [phone] Vera Mcgovern PharmD Unavailable [phone] Encounter Details Date Type Department Care Team (Late st Contact Info) Description 01/13/2024 Telephone [facility] MEDICINE [address] [place], [place] [phone] [facility] 230 [place] [address] Social History Tobacco Use Types Packs/Day Years [...] Description 06/24/2024 3:30 PM EDT Office Visit [facility] OPTOMETRY [address] [place] [address] Wilton, Anaid, OD 230 [place] [address] 07/15/2024 11:30 AM EDT Medication Management [facility] MEDICINE [address] [place] [address] Sophie Zapata PharmD [address] [place] [address] documented as of this encounter Goals Goal [...] documented as of this encounter Care Teams Snuff Box Finisher Relationship Specialty Start Date End Date [facility] Angelique, GOAT FARMER [address] [place] [address] PCP - General Family Medicine 11/08/22 Vera Mcgovern, JessicaD [address] [place] [address] Pharmacist Internal Medicine 08/20/23 documented as of this encounter
--- OUTSIDE RECORDS SUMMARY | 2024-06-18 13:50 | XMS_ITS | Encounter Summary ---
Author Organization [employer] Address 75 [facility] 7t [place] [address] Care Team Providers Care Marketing Project Lead Name Role Phone Jen Sousa [facility] Primary Care Provider [phone] CantonAngelique chong CERTIFIED HISTOLOGIC TECHNICIAN Primary Care Provider [phone] Vera Mcgovern PharmD Unavailable [phone] Encounter Details Date Type Department Care Team ([facility] Contact Info) Description 03/20/2022 Telephone [facility] MEDICINE [address] [place], [place] [phone] Ghada King, TERE Social History Tobacco Use [...] 3:30 PM EDT Office Visit [facility] OPTOMETRY [address] [place], [place] [phone] Anaid Núñez, OD 230 [place] [address] 07/15/2024 11:30 AM EDT Medication Management [facility] MEDICINE [address] [place], [place] [phone] Sophie Zapata, JessicaD [address] [place] [address] documented as of this encounter Visit Diagnoses Not on filedocumented in this encounter Care Teams Marketing Project Lead Relationship Specialty Start Date End Date Jen Sousa FNP [address] [place] [address] PCP - General Family Medicine 10/04/21 11/07/22 CantonAngelique FNP [address] [place] [address] PCP - General Family Medicine 11/08/22 Vera Mcgovern, JessicaD [address] [place] [address] Pharmacist Internal Medicine 08/20/23 documented as of this encounter
--- OUTSIDE RECORDS SUMMARY | 2024-06-18 13:50 | XMS_ITS | Encounter Summary ---
Author Organization [employer] Address 75 [facility] 7t [place] [address] Care Team Providers Care Snowboarder Name Role Phone [facility] Primary Care Provider [phone] Vera Mcgovern PharmD Unavailable [phone] Reason for Visit * Reason Comments Med Refill Encounter Details Date Type Department Care Team ([facility] st Contact Info) Description 01/27/2023 Refill [facility] CHC MED & PEDS [address] [place], [place] [phone] [facility], [facility] [address] [place] [address] Chronic low back pain, unspecified back pain [...] - 01/29/2023 11:19 AM EST RN called [facility] pharmacy in regards to below message. Lyrica 225mg has been discontinued d/t medication being increased to 300mg BID. [facility] pharmacy reports refill request was sent prior to them discontinuing the medication. No refill needed at this time. Please DISCONTINUE lyrica 225mg from medlist toprevent confusion in future. Thank you! documented in this encounter Plan of Treatment Upcoming Encounters Date Type Department Care Team (Late st Contact Info) Description 06/24/2024 3:30 PM EDT Office Visit [facility] OPTOMETRY [address] [place] [address] Anaid Núñez, OD 230 [place] [address] 07/15/2024 11:30 AM EDT Medication Management [facility] MEDICINE 230 [place] [address] Sophie Zapata, JessicaD [address] [place] [address] documented as of this encounter Visit Diagnoses Diagnosis Chronic low back pain, unspecified back pain laterality, unspecified whether sciatica present documented in this encounter Additional Health Concerns Assessment Noted Time PHQ-9 Depression Total Score: 24 023 3:37 PM EDT documented as of this encounter Care Teams Snowboarder Relationship Specialty Start Date End Date Angelique BolañosJESS 230 [place] [address] PCP - General Family Medicine 11/08/22 Vera Mcgovern, Maddy [address] [place] [address] Pharmacist Internal Medicine 08/20/23 documented as of this encounter
--- OUTSIDE RECORDS SUMMARY | 2024-06-18 13:50 | XMS_ITS | Encounter Summary ---
Author Organization [employer] Address 75 [facility] 7t [place] [address] Care Team Providers Care Field Care Manager Name Role Phone Jen Sousa [facility] Primary Care Provider [phone] SomersetAngelique ROLLER INSPECTOR AND MENDER Primary Care Provider [phone] Vera Mcgovern PharmD Unavailable [phone] Reason for Visit * Reason Comments Med Refill Encounter Details Date Type Department Care Team ([facility] Contact Info) Description 02/27/2022 Telephone [facility] ED MED & PEDS [address] [place], [place] [phone] Jen Sousa FNP [address] [place], [place] [phone] Med Refill Social History Tobacco Use Types [...] Upcoming Encounters Date Type Department Care Team ([facility] Contact Info) Description 06/24/2024 3:30 PM EDT Office Visit [facility] OPTOMETRY [address] [place], [place] [phone] Wilton, Anaid, OD [address] [place] [address] 07/15/2024 11:30 AM EDT Medication Management [facility] MEDICINE [address] [place] [address] Sophie Zapata, Maddy [address] [place] [address] documented as of this encounter Visit Diagnoses Diagnosis Type 2 diabetes mellitus with hyperglycemia, with long-term current use of insulin ([facility])- Primary documented in this encounter Care Teams Field Care Manager Relationship Specialty Start Date End Date Jen Sousa FNP [address] [place] [address] PCP - General Family Medicine 10/04/21 11/07/22 SomersetAngelique FNP [address] [place] [address] PCP - General Family Medicine 11/08/22 Vera Mcgovern PharmD [address] [place] [phone] Pharmacist Internal Medicine 08/20/23 documented as of this encounter
--- OUTSIDE RECORDS SUMMARY | 2024-06-18 13:50 | XMS_ITS | Encounter Summary ---
Author Organization [employer] Address [address] [place] [address] 7t [place] [address] Care Team Providers Care Restorative Art Embalmer Name Role Phone Jen Sousa [facility] Primary Care Provider [phone] Angelique Bolaños MEDICAL PHYSICIST Primary Care Provider [phone] Vera Mcgovern PharmD Unavailable [phone] Encounter Details Date Type Department Care Team (Late st Contact Info) Description 01/25/2022 Orders Only [facility] MEDICINE [address] [place] [address] Martha Santana, RN Social History Tobacco Use [...] 06/24/2024 3:30 PM EDT Office Visit [facility] OPTOMETRY [address] [place] [address] Anaid Núñez, OD 230 [place] [address] 07/15/2024 11:30 AM EDT Medication Management [facility] MEDICINE [address] [place] [address] Sophie Zapata, PharmD [address] [place] [address] documented as of this encounter Visit Diagnoses Not on filedocumented in this encounter Care Teams Restorative Art Embalmer Relationship Specialty Start Date End Date Jen Sousa FNP [address] [place] [address] PCP - General Family Medicine 10/04/21 11/07/22 HazletonAngelique FNP [address] [place] [address] PCP - General Family Medicine 11/08/22 Vera Mcgovern, JessicaD [address] [place] [address] Pharmacist Internal Medicine 08/20/23 documented as of this encounter
--- OUTSIDE RECORDS SUMMARY | 2024-06-18 13:50 | XMS_ITS | Clinical Summary ---
Author Organization [facility] Address [address] [place] [address] [place] [address] Phone Care Team Providers Care Assistant Librarian Name Role Phone [facility] Primary Care Provider [phone] Allergies Active Allergy Reactions Criticality Noted Date [...] pain 01/19/2022 Overview (05/05/2024): Previously followed by [facility] pain mng[facility]. Lost to follow up. Rx'd tramadol by previous PCP which was discontinued due to lack of compliance with [employer] agreement. Pt reports widespread chronic pain. Found tramadol minimally helpful. Hx of PT without improvement. Generalized abdominal pain 01/19/2022 Other cirrhosis of liver 01/19/2022 Overview (05/05/2024): - Followed by [facility] - Abdominal ultrasound 02/14/23 w/ enlarged [...] Visit [facility] [address] [place] [address] Alejandro Brice MD Hypokalemia (Primary Dx) from [...] Visit [facility] [address] [place] [address] [place] [address] Alejandro Brice MD [address] [facility] [address] [place] [address] Health Maintenance Due Date Last [...] Phone Billing Address Personal/Family Self 1975 [address] [facility] [address] [place] [address] [place] Care Teams Assistant Librarian Relationship Specialty Start Date End Date [facility] [address] [place] [address] PCP - General 02/23/24
--- OUTSIDE RECORDS SUMMARY | 2024-06-18 13:50 | XMS_ITS | Encounter Summary ---
Author Organization [employer] Address 75 [facility] 7t [place] [address] Care Team Providers Care Bag Mender Name Role Phone Angelique Bolaños [facility] Primary Care Provider [phone] Vera Mcgovern PharmD Unavailable [phone] Reason for Visit * Reason Comments Med Refill Encounter Details Date Type Department Care Team (Late st Contact Info) Description 06/04/2024 Refill [facility] MEDICINE [address] [place] [address] Gretchen Romano MD [address] [place] [address] Type 2 diabetes mellitus with hypoglycemia without coma, with long-term current use of insulin ([facility]); Type 2 diabetes mellitus with hyperglycemia, with long-term current use of insulin ([facility]) Social History Tobacco Use Types [...] Visit [facility] OPTOMETRY [address] [place] [address] Wilton, Anaid, OD [address] [place] [address] 07/15/2024 11:30 AM EDT Medication Management [facility] MEDICINE [address] [place] [address] Sophie Zapata PharmD [address] [place] [address] documented as of this encounter Goals Goal [...] hyperglycemia, with long-term current use of insulin ([facility]) documented in this encounter Additional Health Concerns Assessment Noted Time PHQ-9 Depression Total Score: 0 02/17/19 25 11:42 AM EST documented as of this encounter Care Teams Bag Mender Relationship Specialty Start Date End Date Angelique Bolaños FNP [address] [place] [address] PCP - General Family Medicine 11/08/22 Vera Mcgovern PharmD [address] [place] [address] Pharmacist Internal Medicine 08/20/23 documented as of this encounter
--- OUTSIDE RECORDS SUMMARY | 2024-06-18 13:50 | XMS_ITS | Encounter Summary ---
Author Organization [employer] Address 75 [facility] 7t [place] [address] Care Team Providers Care Oil House Attendant Name Role Phone Jen Sousa TRANSPORTATION CONSULTANT Primary Care Provider [phone] BossAngelique TRANSPORTATION CONSULTANT Primary Care Provider [phone] Vera Mcgovern PharmD Unavailable Reason for Visit * Reason Comments Med Refill Encounter Details Date Type Department Care Team ([facility] st Contact Info) Description 10/15/2022 Refill [facility] CHC MED & PEDS [address] [place], [place] [phone] Jen Sousa TRANSPORTATION CONSULTANT [address] [place], [place] [phone] Chronic midline low back pain with sciatica, [...] Description 06/24/2024 3:30 PM EDT Office Visit [facility] OPTOMETRY [address] [place] [address] Wilton, Anaid, OD [address] [place] [address] 07/15/2024 11:30 AM EDT Medication Management [facility] MEDICINE [address] [place] [address] Sophie Zapata, Maddy [address] [place] [address] documented as of this encounter Visit Diagnoses Diagnosis Chronic midline low back pain with sciatica, sciatica laterality unspecified documented in this encounter Care Teams Oil House Attendant Relationship Specialty Start Date End Date Jen Sousa FNP [address] [place] [address] PCP - General Family Medicine 10/04/21 11/07/22 BossAngelique FNP [address] [place] [address] PCP - General Family Medicine 11/08/22 Vera Mcgovern PharmD [address] [place] [address] Pharmacist Internal Medicine 08/20/23 documented as of this encounter
--- OUTSIDE RECORDS SUMMARY | 2024-06-18 13:50 | XMS_ITS | Encounter Summary ---
Author Organization [employer] Address [address] [facility] 7t [place] [address] Care Team Providers Care Solar Maintenance Technician Name Role Phone Mami, [facility] Primary Care Provider [phone] Vera Mcgovern PharmD Unavailable [phone] Reason for Visit * Reason Onset Date Comments PT1 03/04/2024 Encounter Details Date Type Department Care Team ([facility] st Contact Info) Description 03/04/2024 Telephone [facility] MEDICINE [address] [place], [place] [phone] [facility] [address] [place] [address] PT1 Social History Tobacco Use Types Packs/Day [...] Y/N: Yes Provider name or facility name: [address] [address] Escort needed: Y/N: Yes Do you have a wheelchair: Y/N: No If yes- Manual or electric: N/A Visits: (3 x monthly) documented in this encounter Plan of Treatment Upcoming Encounters Date Type Department Care Team (Late st Contact Info) Description 06/24/2024 3:30 PM EDT Office Visit [facility] OPTOMETRY [address] [place] [address] Anaid Núñez, OD [address] [place] [address] 07/15/2024 11:30 AM EDT Medication Management [facility] MEDICINE [address] [place] [address] ZapataSophie sanches PharmD [address] [place] [address] documented as of this encounter Goals Goal [...] documented as of this encounter Care Teams Solar Maintenance Technician Relationship Specialty Start Date End Date Angelique Bolaños FNP [address] [place] [address] PCP - General Family Medicine 11/08/22 Vera Mcgovern PharmD [address] [place] [address] Pharmacist Internal Medicine 08/20/23 documented as of this encounter
--- OUTSIDE RECORDS SUMMARY | 2024-06-18 13:50 | XMS_ITS | Encounter Summary ---
Author Organization [employer] Address 75 [facility] 7t [place] [address] Care Team Providers Care Beer Maker Name Role Phone Angelique Bolaños CAR BUILDER Primary Care Provider [phone] Vera Mcgovern PharmD Unavailable [phone]- [phone] Reason for Referral * Consultation (Routine) - Authorized Specialty Diagnoses / Procedures Referred By Contac t Referred To Contact Urology Diagnoses Recurrent UTI Bernadine Rodriguez MD [address] [place] [address] Phone: tel: fax: [facility]rology [address] [place] [address] [place] [address] Phone: tel: fax: Referral ID Status Reason Start Date Expiration Date Visits Requested Visits Authorized [id number] Authorized Specialty Services Required 06/17/2024 06/17/2025 6 6 * Consultation (Routine) - Authorized Specialty Diagnoses / Procedures Referred By Contac t Referred To Contact Diagnoses Other cirrhosis of liver (CMS/HCC) Depression with anxiety Type 2 diabetes mellitus with hyperglycemia, with long-term current use of insulin (CMS/HCC) Bernadine Rodriguez MD [address] [place] [address] Phone: tel: fax: Referral ID Status Reason Start Date Expiration Date Visits Requested Visits Authorized [id number] Authorized Specialty Services Required 06/16/2024 06/16/2025 1 1 * Consultation (Routine) - Authorized Specialty Diagnoses / Procedures Referred By Love villalpando Referred To Contact Pharmacy Diagnoses Type 2 diabetes mellitus with hyperglycemia, with long-term current use of insulin (CMS/HCC) Bernadine Rodriguez MD [address] [place] [address] Phone: tel: fax: Referral ID Status Reason Start Date Expiration Date Visits Requested Visits Authorized [id number] Authorized Consult and Treat 06/16/2024 06/16/2025 6 6 Encounter Details Date Type Department Care Team (Late st Contact Info) Description 06/16/2024 9:30 AM EDT Office Visit [facility] MEDICINE [address] [place] [address] Bernadine Rodriguez MD [address] [place] [id number] Type 2 diabetes mellitus with other specified [...] old female who presents for HDF . [facility] [place]19[place] 05[place]21[place]) Patient presented to ED with diffuse abdominal and flank pain associated with nausea and vomiting and subjective fever, urinary retention, bladder pressure and malodorous urine for 5 days. 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 insulin pen needle (WagontiGFlashstartsrd SafePack Pen Needle) 32G x 4 mm [...] DAILY 100 each 5 [DISCONTINUED] Continuous Glucose Consultant Intern (FreeStyle Bri 3 Perris) device 1 each 4 times daily. 1 each 0 [DISCONTINUED] insulin degludec (Tresiba FlexTouch) 200 UNIT/ML injection Inject 30 Units under theskin at bedtime. No current facility-administered medications on file prior to visit. Problem List Items Addressed This Visit Type 2 diabetes mellitus ([facility]) - Primary Diabetes is: not controlled but [...] (Tresiba FlexTouch) 200 UNIT/ML injection Continuous Glucose Consultant Intern (FreeStyle Bri 3 [place]is) device FREESTYLE LITE test strip Lancets misc Alcohol Swabs 70 % pads Blood Glucose Monitoring Suppl (FreeStyle Avalon Lite) w/Device kit Other Relevant Orders Referral [...] EDT Associated Problem(s): Type 2 diabetes mellitus ([facility]) Diabetes is: not controlled but improved - [...] locally * Assessment & Plan Note - Benradine Martínez MD - 06/16/2024 1:40 PM EDT [...] Visit [facility] OPTOMETRY [address] [place] [address] Wilton, Anaid, OD [address] [place] [address] 07/15/2024 11:30 AM EDT Medication Management [facility]IC[facility] [address] [place] [address] Sophie Zapata, PharmD [address] [place] [address] Scheduled Orders Name Type Priority Associated Diagnoses Orde r Schedule Hepatic Function Panel Lab Routine Other cirrhosis of liver (CMS/HCC) Expected: 06/16/2024 (Approximate), Expires: 06/16/2025 XR Knee 4+ Views Right Imaging Routine Chronic pain of right knee Expected: 06/16/2024, Expires: 06/16/2025 Scheduled Referrals Name Type Priority Associated Diagnoses Order Schedule Referral to Pharmacy CDTM Outpatient Referral Routine Type 2 diabetes mellitus with hyperglycemia, with long-term current use of insulin (CMS/HCC) Ordered: 06/16/2024 Referral to Care Management Outpatient Referral Routine Other cirrhosis of liver (CMS/HCC) Depression with anxiety Type 2 diabetes mellitus with hyperglycemia, with long-term current use of insulin (CMS/HCC) Expected: 06/16/2024 (Approximate), Expires: 06/16/2025 Referral to Urology Outpatient Referral Routine Recurrent UTI Expected: 06/16/2024 (Approximate), Expires: 06/16/2025 documented as of this encounter Goals Goal Patient Goal Type Associated Problems Recent Progress Patient-Stated? Author Hemoglobin A1c < 7 Result Component 8.1( 10:29 AM EDT) No Dentons-Vera Comer, PharmD Record your blood sugar as directed Result Component No Dentons-Vera Comer, PharmD documented as of this encounter Procedures [...] complication, with long-term current use of insulin ([facility]) POCT GLUCOSE Routine 06/16/2024 10:28 AM EDT Type 2 diabetes mellitus with other specified complication, with long-term current use of insulin ([facility]) documented in this encounter Results * Culture, Urine, Routine (06/16/2024 11:04 AM EDT) Urine Urine specimen obtained by clean catch procedure / Unknown 06/16/2024 11:04 AM EDT 06/16/2024 6:02 PM EDT Comment:UACC Narrative [facility] - 06/18/2024 7:26 AM EDT Serratia marcescens Quant > 100,000 cfu/mL Serratia marcescens: Cefazolin >=32(R) Serratia marcescens: Cefepime <=0.12(S) Serratia marcescens: Ceftriaxone <=0.25(S) Serratia marcescens: Ciprofloxacin <=0.06(S) Serratia marcescens: Gentamicin <=1(S) Serratia marcescens: Trimethoprim/Sulfamethoxazole <=20(S) Specimen Source: Urine clean catch Bernadine Martínez MD LAB MICROBIOLOGY - [facility] ORDERABLES Final Result [facility] [address] [place] [phone] * (ABNORMAL) POCT Urinalysis (06/16/2024 10:58 AM [...] Media Lot # [id number] Lot# Expiration Date , Blood 06/16/2024 10:2 9 AM EDT Result Renee Martínez MD POINT OF CARE TEST EN TER/EDIT ORDERABLES Final Result * (ABNORMAL) POCT Glucose (06/16/2024 10:28 AM EDT) Pathologist [facility] Glucose Blood, POC 0(A) 60 - 200 mg/dL Comment:[facility] QC Media Lot # [id number] Lot# Expiration Date Blood Capillary blood specimen / Unknown 06/16/2024 10:28 AM EDT Result Renee Martínez MD POINT OF CARE TEST EN [...] documented as of this encounter Care Teams Beer Maker Relationship Specialty Start Date End Date Angelique Bolaños FNP [address] [place] [address] PCP - General Family Medicine 11/08/22 Vera Mcgovern PharmD [address] [place] [address] Pharmacist Internal Medicine 08/20/23 documented as of this encounter
--- OUTSIDE RECORDS SUMMARY | 2024-06-18 13:50 | XMS_ITS | Encounter Summary ---
Author Organization [employer] Address 75 [facility] 7t [place] [address] Care Team Providers Care Hadoop Analyst Name Role Phone Jen Sousa COMMUNITY OUTREACH COORDINATOR Primary Care Provider [phone] Angelique Bolaños COMMUNITY OUTREACH COORDINATOR Primary Care Provider [phone] Vera Mcgovern PharmD Unavailable [phone] Encounter Details Date Type Department Care Team (Late Contact Info) Description 01/25/2022 Orders Only [facility] CHC MED & PEDS [address] [place] [address] Rody Campbell LPN Social History Tobacco Use [...] Description 06/24/2024 3:30 PM EDT Office Visit [facility] OPTOMETRY [address] [place] [address] Anaid Núñez, OD [address] [place] [address] 07/15/2024 11:30 AM EDT Medication Management [facility] MEDICINE [address] [place] [address] Sophie Zapata, PharmD [address] [place] [address] documented as of this encounter Visit Diagnoses Not on filedocumented in this encounter Care Teams Hadoop Analyst Relationship Specialty Start Date End Date Jen Sousa FNP [address] [place] [address] PCP - General Family Medicine 10/04/21 11/07/22 BlackwellAngelique chong FNP [address] [place] [address] PCP - General Family Medicine 11/08/22 Vera Mcgovern PharmD [address] [place] [address] Pharmacist Internal Medicine 08/20/23 documented as of this encounter
--- OUTSIDE RECORDS SUMMARY | 2024-06-18 13:50 | XMS_ITS | Encounter Summary ---
Author Organization [employer] Address 75 [facility] 7t [place] [address] Care Team Providers Care Residential Solar Sales Consultant Name Role Phone Angelique Bolaños TELEVISION AUDIO ENGINEER Primary Care Provider [phone] Vera Mcgovern PharmD Unavailable [phone]- [phone] Reason for Visit * Reason Onset Date Comments Results 06/18/2024 Encounter Details Date Type Department Care Team ([facility] st Contact Info) Description 06/18/2024 Telephone [facility] MEDICINE [address] [place], [place] [phone] Rachelle Clark RN [address] [place] [address] Results Social History Tobacco Use Types Packs/Day Years [...] Telephone Encounter - Rachelle Clark RN - 06/18/2024 10:47 AM EDT TC placed to daughter (on HIPAA), informed daughter urine culture results from 06/16/24 came back showing bacteria in urine that is not best treated by Abx prescribed at [facility] appt. Dr. Lara would like pt. To discontinue macrobid and start cipro twice daily x 5 days. Daughter verbalizes understanding and states they will come to [facility] pharmacy today to pick it up documented in this encounter Plan of Treatment Upcoming Encounters Date Type Department Care Team (Late st Contact Info) Description 06/24/2024 3:30 PM EDT Office Visit [facility] OPTOMETRY [address] [place], [place] [phone] Wilton, Anaid, OD [address] [place] [address] 07/15/2024 11:30 AM EDT Medication Management [facility] [address] [place] [address] Sophie Zapata PharmD [address] [place] [address] documented as of this encounter Goals Goal [...] documented as of this encounter Care Teams Residential Solar Sales Consultant Relationship Specialty Start Date End Date Angelique Bolaños FNP [address] [place] [address] PCP - General Family Medicine 11/08/22 Vera Mcgovern PharmD [address] [place] [address] Pharmacist Internal Medicine 08/20/23 documented as of this encounter
--- OUTSIDE RECORDS SUMMARY | 2024-06-18 13:50 | XMS_ITS | Encounter Summary ---
Author Organization [employer] Address 75 [facility] 7t [place] [address] Care Team Providers Care Building Maintenance Mechanic Name Role Phone Angelique Bolaños [facility] Primary Care Provider [phone] Vera Mcgovern PharmD Unavailable [phone] Reason for Visit * Reason Comments Med Refill Encounter Details Date Type Department Care Team ([facility] st Contact Info) Description 12/04/2022 Refill [facility] CHC MED & PEDS [address] [place], [place] [phone] Jen Sousa FNP [address] [place] [address] Type 2 diabetes mellitus with hyperglycemia, with long-term current use of insulin ([facility]) Social History Tobacco Use Types Packs/Day [...] Description 06/24/2024 3:30 PM EDT Office Visit [facility] OPTOMETRY [address] [place] [address] Wilton, Anaid, OD [address] [place] [address] 07/15/2024 11:30 AM EDT Medication Management [facility] MEDICINE [address] [place] [address] Sophie Zapata, Maddy [address] [place] [address] documented as of this encounter Visit Diagnoses Diagnosis Type 2 diabetes mellitus with hyperglycemia, with long-term current use of insulin ([facility]) documented in this encounter Additional Health Concerns Assessment Noted Time PHQ-9 Depression Total Score: 24 023 3:16 PM EDT documented as of this encounter Care Teams Building Maintenance Mechanic Relationship Specialty Start Date End Date Angelique Bolaños FNP [address] [place] [address] PCP - General Family Medicine 11/08/22 Vera Mcgovern, JessicaD [address] [place] [address] Pharmacist Internal Medicine 08/20/23 documented as of this encounter
--- OUTSIDE RECORDS SUMMARY | 2024-06-18 13:50 | XMS_ITS | Encounter Summary ---
Author Organization [employer] Address 75 [facility] 7t [place] [address] Care Team Providers Care Manufacturing Project Manager Name Role Phone Angelique Bolaños ETHYLBENZENE OXIDIZER Primary Care Provider [phone] Vera Mcgovern PharmD Unavailable [phone] Reason for Visit * Reason Onset Date Comments Chart Prep 06/15/2024 Encounter Details Date Type Department Care Team ([facility] st Contact Info) Description 06/15/2024 Telephone [facility] [address] [place] [address] Bernadien Rodriguez MD [address] [place] [address] Chart Prep Social History Tobacco Use Types [...] the past 12 months, has t he [employer], gas, oil or water [employer] threatened to shut off services in your [...] PM EDT Chart Prep Labs: done Labs Results[place] Images: done MRI Abdomen/CT Abd/Pelvis Report([facility] Referrals: no show Podiatry-Dr. Gao Vaccines due: Covid, Flu, PCV20, and Hep A Screenings: colonoscopy, mammogram, pap smear, and foot exam Overdue care gaps: A1c, Glucose, SBIRT, ANGELA-7, Oral health screening, and Disability screen documented in this encounter Plan of Treatment Upcoming Encounters Date Type Department Care Team (Late st Contact Info) Description 06/24/2024 3:30 PM EDT Office Visit [facility] OPTOMETRY [address] [place], [place] [phone] Wilton, Anaid, OD [address] [place], [place] [phone] 07/15/2024 11:30 AM EDT Medication Management [facility] [address] [place] [address] Sophie Zapata PharmD [address] [place] [address] documented as of this encounter Goals Goal [...] documented as of this encounter Care Teams Manufacturing Project Manager Relationship Specialty Start Date End Date Angelique Bolaños FNP [address] [place] [address] PCP - General Family Medicine 11/08/22 Vera Mcgovern PharmD [address] [place] [address] Pharmacist Internal Medicine 08/20/23 documented as of this encounter
--- OUTSIDE RECORDS SUMMARY | 2024-06-18 13:50 | XMS_ITS | Encounter Summary ---
Author Organization [employer] Address 75 [facility] 7t [place] [address] Care Team Providers Care Academic Services Coordinator Name Role Phone [place] [facility] Primary Care Provider [phone] Vera Mcgovern PharmD Unavailable [phone] Reason for Visit * Reason Onset Date Comments Referral 12/24/2022 C3CM- f/u GI ref erral Care Coordination 12/24/2022 Encounter Details Date Type Department Care Team ([facility] st Contact Info) Description 12/24/2022 Telephone [facility] [address] [place], [place] [phone] [place], [facility] [address] [place], [place] [phone] Referral (C3CM- f/u GI referral); Care Coordination [...] due to urgent was given for [facility]. Pt is requesting if it is possible to advance appt for this year. Please contact pt at [phone] documented in this encounter Plan of Treatment Upcoming Encounters Date Type Department Care Team (Late st Contact Info) Description 06/24/2024 3:30 PM EDT Office Visit [facility] OPTOMETRY [address] [place] [address] Anaid Núñez, OD [address] [place] [address] 07/15/2024 11:30 AM EDT Medication Management [facility] MED[facility]INE [address] [place] [address] Sophie Zapata PharmD [address] [place] [address] documented as of this encounter Visit Diagnoses Not on filedocumented in this encounter Additional Health Concerns Assessment Noted Time PHQ-9 Depression Total Score: 24 023 3:37 PM EDT documented as of this encounter Care Teams Academic Services Coordinator Relationship Specialty Start Date End Date Angelique Bolaños FNP [address] [place] [address] PCP - General Family Medicine 11/08/22 Vera Mcgovern, JessicaD [address] [place] [address] Pharmacist Internal Medicine 08/20/23 documented as of this encounter
--- OUTSIDE RECORDS SUMMARY | 2024-06-18 13:50 | XMS_ITS | Encounter Summary ---
Author Organization [employer] Address 75 [facility] 7t [place] [address] Care Team Providers Care Flooring Mechanic Name Role Phone Mami [facility] Primary Care Provider [phone] Vera Mcgovern PharmD Unavailable [phone] Reason for Visit * Reason Onset Date Comments Nurse Triage 04/15/2023 Encounter Details Date Type Department Care Team ([facility] st Contact Info) Description 04/15/2023 Telephone [facility] MEDICINE [address] [place], [place] [phone] [facility] [address] [place] [address] Nurse Triage Social History Tobacco Use Types [...] of disposition with rationale. Pt agrees to [facility] ER now for exam . Sent to [...] Description 06/24/2024 3:30 PM EDT Office Visit [facility] OPTOMETRY [address] [place], [place] [phone] Wilton Anaid, OD [address] [place] [address] 07/15/2024 11:30 AM EDT Medication Management [facility] MEDICINE [address] [place] [address] Sophie Zapata, JessicaD [address] [place] [address] documented as of this encounter Visit Diagnoses Not on filedocumented in this encounter Additional Health Concerns Assessment Noted Time PHQ-9 Depression Total Score: 17 024 12:52 PM EST documented as of this encounter Care Teams Flooring Mechanic Relationship Specialty Start Date End Date Angelique Bolaños FNP [address] [place] [address] PCP - General Family Medicine 11/08/22 Vera Mcgovern, JessicaD [address] [place] [phone] Pharmacist Internal Medicine 08/20/23 documented as of this encounter
--- OUTSIDE RECORDS SUMMARY | 2024-06-18 13:50 | XMS_ITS | Encounter Summary ---
Author Organization [employer] Address 75 [facility] 7t [place] [address] Care Team Providers Care Bar Turner Name Role Phone [place] [facility] Primary Care Provider [phone] Vera Mcgovern PharmD Unavailable [phone] Reason for Visit * Reason Comments Med Refill Encounter Details Date Type Department Care Team ([facility] st Contact Info) Description 01/22/2023 Refill [facility] CHC MED & PEDS [address] [place], [place] [phone] [facility], [facility] [address] [facility] [place] [address] Chronic midline low back pain with sciatica, [...] Description 06/24/2024 3:30 PM EDT Office Visit [facility] OPTOMETRY [address] [place] [address] Wilton, Anaid, OD [address] [place] [address] 07/15/2024 11:30 AM EDT Medication Management [facility] MEDICINE [address] [place] [address] Sophie Zapata, JessicaD [address] [place] [address] documented as of this encounter Visit Diagnoses Diagnosis Chronic midline low back pain with sciatica, sciatica laterality unspecified Chronic low back pain, unspecified back pain laterality, unspecified whether sciatica present documented in this encounter Additional Health Concerns Assessment Noted Time PHQ-9 Depression Total Score: 24 023 3:37 PM EDT documented as of this encounter Care Teams Bar Turner Relationship Specialty Start Date End Date Angelique Bolaños FNP [address] [place] [address] PCP - General Family Medicine 11/08/22 Vera Mcgovern, JessicaD [address] [place] [address] Pharmacist Internal Medicine 08/20/23 documented as of this encounter
--- OUTSIDE RECORDS SUMMARY | 2024-06-18 13:50 | XMS_ITS | Encounter Summary ---
Author Organization [employer] Address 75 [facility] 7t [place] [address] Care Team Providers Care Vice President Investor Relations Name Role Phone Mami [facility] Primary Care Provider [phone] Vera Mcgovern PharmD Unavailable [phone] Reason for Visit * Reason Onset Date Comments Nurse Triage 04/02/2023 Encounter Details Date Type Department Care Team ([facility] st Contact Info) Description 04/02/2023 Telephone [facility] [address] [place], [place] [phone] [place] [facility] [address] [place] [address] Nurse Triage Social History Tobacco Use Types [...] patient ED visit on 03/30/23. Seen at [facility] No scheduled appt.But will present to [facility] for alternate issue. * Telephone Encounter - Tiffanie Yeung LPN - 04/02/2023 1:50 PM EST Triage call returned to patient who was seen at [facility] ED 03/30/23 for dx of bronchitis was [...] at time of call. Patient advised of [facility] hours and availability for today and tomorrow [...] 15 minutes Reason: Getting worse,was seen at [facility] on 03/30 for bronchitis. The caller accepted this outcome Please contact pt at [phone] documented in this encounter Plan of Treatment Upcoming Encounters Date Type Department Care Team (Late st Contact Info) Description 06/24/2024 3:30 PM EDT Office Visit [facility] [address] [place], [place] [address] Anaid Núñez, OD [address] [place], [place] [phone] 07/15/2024 11:30 AM EDT Medication Management [facility] [address] [place], [place] [phone] Sophie Zapata, PharmD [address] [place] [address] documented as of this encounter Visit Diagnoses Not on filedocumented in this encounter Additional Health Concerns Assessment Noted Time PHQ-9 Depression Total Score: 17 024 12:52 PM EST documented as of this encounter Care Teams Vice President Investor Relations Relationship Specialty Start Date End Date Angelique Bolaños FNP [address] [place] [address] PCP - General Family Medicine 11/08/22 Vera Mcgovern, JessicaD [address] [place] [address] Pharmacist Internal Medicine 08/20/23 documented as of this encounter
--- OUTSIDE RECORDS SUMMARY | 2024-06-18 13:50 | XMS_ITS | Encounter Summary ---
Author Organization [employer] Address [address] [place] [address] Care Team Providers Care Consumer Banker Name Role Phone [facility] Primary Care Provider [phone] Vera Mcgovern PharmD Unavailable [phone] Reason for Visit * Reason Onset Date Comments Pt1 06/01/2024 Encounter Details Date Type Department Care Team ([facility] st Contact Info) Description 06/01/2024 Telephone [facility] [address] [place], [place] [phone] [facility] [address] [place] [address] Pt1 Social History Tobacco Use Types Packs/Day [...] Y/N: Yes Provider name or facility name: [facility] Facility Address: [address] [place] [address] [address]rd Floor, [place] [address] Escort needed: Y/N: Yes Do you have a wheelchair: Y/N: No If yes- Manual or electric: n/a Visits: 1x a month Patient calling requesting PT1 Home Address verified: Y/N: Yes Provider name or facility name: [facility] Facility Address: [address] [place] [address] Escort needed: Y/N: Yes Do you have a wheelchair: Y/N: No If yes- Manual or electric: n/a Visits: 1x 3 month documented in this encounter Plan of Treatment Upcoming Encounters Date Type Department Care Team (Late st Contact Info) Description 06/24/2024 3:30 PM EDT Office Visit [facility] [address] [place] [address] Wilton, Megan, OD [address] [place] [address] 07/15/2024 11:30 AM EDT Medication Management [facility] [address] [place] [address] Sophie Zapata PharmD [address] [place] [address] documented as of this encounter Goals Goal [...] documented as of this encounter Care Teams Consumer Banker Relationship Specialty Start Date End Date Angelique Bolaños FNP [address] [place] [address] PCP - General Family Medicine 11/08/22 Vera Mcgovern PharmD [address] [place] [address] Pharmacist Internal Medicine 08/20/23 documented as of this encounter
--- OUTSIDE RECORDS SUMMARY | 2024-06-18 13:50 | XMS_ITS | Encounter Summary ---
Author Organization [employer] Address [address] [facility] [address]t [place] [address] Care Team Providers Care Asbestos Brake Lining Finisher Helper Name Role Phone Angelique Bolaños DIRECTOR EXECUTIVE COMMUNICATIONS Primary Care Provider [phone] Vera Mcgovern PharmD Unavailable [phone] Encounter Details Date Type Department Care Team [...] Description 06/24/2024 3:30 PM EDT Office Visit [facility] [address] [place] [address] Wilton, Anaid, OD [address] [place] [address] 07/15/2024 11:30 AM EDT Medication Management [facility] [address] [place] [address] Sophie Zapata PharmD [address] [place] [address] documented as of this encounter Goals Goal [...] documented as of this encounter Care Teams Asbestos Brake Lining Finisher Helper Relationship Specialty Start Date End Date Angelique Bolaños FNP [address] [place] [address] PCP - General Family Medicine 11/08/22 Vera Mcgovern, JessicaD [address] [place] [address] [place] [address] Pharmacist Internal Medicine 08/20/23 documented as of this encounter
--- OUTSIDE RECORDS SUMMARY | 2024-06-18 13:50 | XMS_ITS | Encounter Summary ---
Author Organization [employer] Address [address] [facility] 7t [place] [address] Care Team Providers Care Title 1 Tutor Name Role Phone Angelique Bolaños P[employer] AND SHOV[employer] MAN Primary Care Provider [phone] Vera Mcgovern PharmD Unavailable [phone] Reason for Visit * Reason Comments Med Refill Encounter Details Date Type Department Care Team ([facility] st Contact Info) Description 03/28/2023 Refill [facility] [address] [place], [place] [phone] Name, MD Ammon [address] [place] [address] Pain Social History Tobacco Use Types Packs/Day [...] Visit [facility] [address] [place] [address] Anaid Núñez, OD [address] [place] [address] 07/15/2024 11:30 AM EDT Medication Management [facility] [address] [place] [address] Sophie Zapata PharmD [address] [place] [address] documented as of this encounter Visit Diagnoses Diagnosis Pain Generalized pain documented in this encounter Additional Health Concerns Assessment Noted Time PHQ-9 Depression Total Score: 17 024 12:52 PM EST documented as of this encounter Care Teams Title 1 Tutor Relationship Specialty Start Date End Date Angelique Bolaños FNP [address] [place] [address] PCP - General Family Medicine 11/08/22 Vera Mcgovern, JessicaD [address] [place] [id number] Pharmacist Internal Medicine 08/20/23 documented as of this encounter
--- OUTSIDE RECORDS SUMMARY | 2024-06-18 13:51 | XMS_ITS | Encounter Summary ---
Author Organization [email or web address] Address [address] [facility] [address]t [place] [address] Care Team Providers Care Dispatcher Service Chief Name Role Phone Angelique Bolaños RN SOCIAL SERVICES Primary Care Provider [phone] Vera Mcgovern PharmD Unavailable [phone] Reason for Referral * Consultation (Routine) - Authorized Specialty Diagnoses / Procedures Referred By Contvel t Referred To Contact Pharmacy Diagnoses Type 2 diabetes mellitus with other specified complication, with long-term current use of insulin (CMS/HCC) Lisha Maxwell MD [address] [place] [address] Phone: tel: fax: Referral ID Status Reason Start Date Expiration Date Visits Requested Visits Authorized [id number] Authorized Consult and Treat 04/05/2024 04/05/2025 6 6 Encounter Details Date Type Department Care Team (Late st Contact Info) Description 04/05/2024 Orders Only [facility] [address] [place] [address] Lisha Maxwell MD [address] [place] [address] Type 2 diabetes mellitus with other specified [...] Description 06/24/2024 3:30 PM EDT Office Visit [facility] [address] [place] [address] Anaid Núñez, OD [address] [place] [address] 07/15/2024 11:30 AM EDT Medication Management [facility] [address] [place] [address] Sophie Zapata PharmD [address] [place] [address] Scheduled Referrals Name Type Priority Associated Diagnoses Orde r Schedule Referral to Pharmacy CDTM Outpatient Referral Routine Type 2 diabetes mellitus with other specified complication, with long-term current use of insulin ([facility]) Ordered: 04/05/2024 documented as of this encounter [...] current use of insulin ([facility])- Primary documented in this encounter Additional Health Concerns Assessment Noted Time PHQ-9 Depression Total Score: 0 02/17/19 25 11:42 AM EST documented as of this encounter Care Teams Dispatcher Service Chief Relationship Specialty Start Date End Date LawrencevilleAngelique FNP [address] [place] [address] PCP - General Family Medicine 11/08/22 Vera Mcgovern PharmD [address] [place] [address] Pharmacist Internal Medicine 08/20/23 documented as of this encounter
--- OUTSIDE RECORDS SUMMARY | 2024-06-18 13:51 | XMS_ITS | Continuity of Care Document ---
Author Organization [facility] vices Address [address] [place] [address] Phone Care Team Providers Care Communications Associate Name Role Phone Sallie Ryan MD Unavailable [...] PREVENTION 50 MG - Active Ultra-Light Rollator [facility] [employer] Rolling walker with seat dx M54.9 x [...] 2 WEEKS - Active Miscellaneous Script MISCELL EnglishUp Shower chair and grab bars dx R55 [...] Charge URINALYSIS (IH) CBC W/O DIFF (CLP 96842) NEW Level 3 - Detailed HIV-1/HIV-2 AB, REFLEX WB RPR TSH GONORRHEA, DNA (CLP 58592) CHLAMYDIA (CLP 49443) LIPASE HEPATITIS B SURF AB QUANT HEPATITIS B SURFACE AG, EIA HEPATITIS C AB AZITHROMYCIN H PYLORI AB IGG (CLP 30709) CEFTRIAXONE SODIUM INJECTION GLUCOSE, RANDOM (IH) AST (CLP 97929) ALT (CLP 66523) BASIC METABOLIC PANEL AMYLASE US EXAM, ABDOM, COMPLETE TEST, URINE (IH) Advance Directives Directive Yes / No Effective Date File Name No Information Encounters Encounter Description Practice Location Reason(s) For Visit Diagnoses Date Provider Providers Copied on Encounter [facility] [place], [address], [place], [address], [place] tel:[phone] [facility] Adult Medicine No Information 1 Connor Rizo. [address], [id number] [place], [place], [address], [place]. tel:[phone] [facility], [place], [address], [place] tel:[phone] [facility] Adult Medicine No Information Dec-2 3-202 0 Brown Orett. [address], [id number] [address], [place], [address], [place]. tel:[phone] [facility] [place], [place], [address], [place] tel:[phone] [facility] Adult Medicine No Information Dec-2 1-202 0 Brown Orett. [address], [id number] [address], [place], [address], [place]. tel:[phone] [facility] [place] [place], [place], [address], [place] tel:[phone] [facility] Adult Medicine No Information Jan- 2-202 0 Brown Orett. [address], [id number] [address], [place], [address], [place]. tel: [phone] [facility] [place], [place], [address], [place] tel:[phone] [facility] Adult Medicine No Information Oct-3 0-202 0 Brown Orett. [address], [id number] [address], [place], [address], [place]. tel: [phone] [facility], [place], [address], [place] tel:[phone] [facility] Adult Medicine No Information Nov-2 2-202 0 Brown Orett. [address], [id number] [place], [address], [place]. tel:[phone] [facility], [place], [address], [place] tel:[phone] [facility] Adult Medicine No Information Nov-1 8-202 0 Brown Orett. [address], [id number] [address], [place], [address], [place]. tel:[phone] [facility], [address] [place] [address], [facility] [place], [place] tel:[phone] [facility] Adult Medicine No Information 0 Connor Rizo. [facility], [id number] [address] [place] [address], [address], [place]. tel:[phone] [facility], [address] [place] [address], [facility] [place], [place] tel:[phone] [facility] Adult Medicine No Information 0 Connor Rizo. [facility], [id number] [address] [place] [address], [address], [place]. tel:[phone] Telephone E/M By Provider 11-20 MIN [facility], [address] [place] [address], [facility] [place], [place] tel:[phone] [facility] Adult Medicine Telehealth (chief complaint) Kidney stonesType 2 diabetesConst ipation, unspecified constipation type 0 Connor Otttt. Nolberto [facility], [id number] [address] [place] [address], [facility] [place], [place]. tel:[phone] [facility], [address] [place] [address], [facility] [place], [place] tel:[phone] [facility] Adult Medicine No Information 0 Connor tOttt. [address], [id number] [address] [place] [address], [address], [place]. tel:[phone] [facility], [address] [place] [address], [facility] [place], [place] tel:[phone] [facility] Adult Medicine No Information 0 Connor Otttt. Nolberto [facility], [id number] [address] [place] [address], [facility] [place], [place]. tel:[phone] OFFICE/OUTPT Visit, EST - DetHx, Abilio, DavidM, 25 Minutes [facility], [address] [place] [address], [facility] [place], [place] tel:[phone] [facility] Adult Medicine Hosp F/u (chief complaint) Body mass index (BMI) 45.0-49.9, adultEncounte r for screening, unspecifiedBr east calcification sOpacity of lung on imaging studyChronic constipationT ype 2 diabetes May- 0 Connor Rizo. [address], [id number] [address] [place] [address], [address], [place]. tel:[phone] OFFICE/OUTPA TIENT VISIT, [facility] [place] [place], [address] [place] [address], [address], [place] tel:[phone] [facility] Adult Medicine follow up (chief complaint) Body mass index (BMI) 45.0-49.9, adultEncounte r for screening, unspecifiedSp inal stenosis, lumbar region with neurogenic claudicationH ypertrophy of breastType 2 diabetes mellitus without complications 9 Connor Rizo. 500 [facility], [id number] [address] [place] [address], [address], [place]. tel:[phone] OFFICE/OUTPA TIENT VISIT, [facility] [place], [place], [address] [place] [address], [facility] [place], [place] tel:[phone] [facility] Adult Medicine routine F/u (chief complaint) Body mass index (BMI) 45.0-49.9, adultEncounte r for screening, unspecifiedSp inal stenosis, lumbar region with neurogenic claudicationS ialadenitis 9 Connor Rizo. [address] [place] [facility], [id number] [address] [place] [address], [address], [place]. tel:[phone] OFFICE/OUTPA TIENT VISIT, [facility], [address] [place] [address], [address], [place] tel:[phone] [facility] Cardiology fatigue (chief complaint)pal pitations (chief complaint)Diz ziness (chief complaint) Generalized anxiety disorderOther psychoactive substance use, unspecified with other psychoactive substance-ind uced disorderMajor depressive disorder, recurrent, moderateDorsa lgia, unspecifiedPr ediabetesPalp itations 9 No Information [facility], [address] [place] [address], [address], [place] tel:[phone] [facility] Adult Medicine No Information 9 Connor Rizo. [address], [id number] [address] [place] [address], [facility] [place], [place]. [phone] OFFICE/OUTPA TIENT VISIT, [facility] [place], [place], [address] [place] [address], [facility] [place], [place] tel:[phone] [facility] Adult Medicine routine f/u (chief complaint) Body mass index (BMI) 45.0-49.9, adultEncounte r for screening, unspecifiedOt her chronic painLarge breastsType 2 diabetes mellitus without complication, with long-term current use of insulinLong term (current) use of insulinBenign essential HTNChronic bilateral low back pain with sciatica, sciatica laterality unspecified 9 Connor Rizo. [address] [place], [place] [address]t[place], [id number] [address] [place] [address], [facility] [place], [place]. tel:[phone] [facility], [address] [place] [address], [facility] [place], tel:[phone] [facility] Adult Medicine [place] No Information 8 Connor Rizo. [address] [place] [address], [id number] [address] [place] [address], [facility] [place], [place]. tel:[phone] Psychotherap y, 45 Minutes With Patient [facility], [address] [place] [address], tel:[phone] [facility] Behavioral Health Generalized Anxiety DisorderCanna bis dependence, uncomplicated Major depressive disorder, recurrent, moderate 8 No Information [facility], [address] [place] [address], [facility] [place], [place] tel:[phone] [facility] Adult Medicine No Information 8 No Information OFFICE/OUTPA TIENT VISIT, [facility], [place], [address] [place] [address], [facility] [place], [place] tel:[phone] [facility] Adult Medicine c/o Arm Pain (chief complaint) Body mass index (BMI) 45.0-49.9, adultEncounte r for screening for diabetes mellitusEncou nter for screening, unspecifiedLi ghtheadedness Oct- 8 Connor Rizo. 500 [facility], [id number] [address] [place] [address], [address], [place]. tel:[phone] OFFICE/OUTPA TIENT VISIT, [facility] [place], [place], [address] [place] [address], [address], [place] tel:[phone] [facility] Adult Medicine TRIAGE (chief complaint)diz zy/lightheade d with falls (chief complaint) Vasovagal reactionDorsa lgia, unspecifiedEn counter for screening, unspecifiedEn counter for test, result negative 8 No Information [facility], [address] [place] [address], [address], [place] tel:[phone] [facility] Optometry Diabetes Examination (chief complaint)Brenda betes Examination (chief complaint) Type 2 diabetes mellitus without complications Myopia, bilateral 8 No Information OFFICE/OUTPA TIENT VISIT, [facility] [place], [place], [address] [place] [address], [facility] [place], [place] tel:[phone] [facility] Adult Medicine Lab results (chief complaint) Type 2 diabetes mellitus without complications Essential (primary) hypertensionB neelam mass index (BMI) 45.0-49.9, adultEncounte r for screening, unspecifiedPa in of upper abdomenDermat itis 8 No Information OFFICE/OUTPA TIENT VISIT, [facility] [place], [place], [address] [place] [address], [address], [place] tel:[phone] [facility] Adult Medicine back Pain f/u (chief complaint) Body mass index (BMI) 40.0-44.9, adultEncounte r for screening, unspecifiedEp igastric painDorsalgia , unspecified 8 Connor Ottbrandyn. 500 [facility], [id number] [address] [place] [address], [address], [place]. tel:[phone] Psychotherap y, 45 Minutes With Patient [facility], [address] [place] [address], [address], [place] tel:[phone] [facility] Behavioral Health Anxiety disorder, unspecifiedCa nnabis use disorder, moderate 8 No Information OFFICE/OUTPA TIENT VISIT, [facility] [place], [place], [address] [place] [address], [facility] [place], [place] tel:[phone] [facility] Adult Medicine PRE-OP (chief complaint) Encounter for screening for diabetes mellitusBody mass index (BMI) 45.0-49.9, adultPre-op evaluationLon g term (current) use of insulinType 2 diabetes mellitus without complication, with long-term current use of insulin 0 7- 8 Connor [facility]. 500 [facility], [id number] [address] [place] [address], [address], [place]. tel:[phone] OFFICE/OUTPA TIENT VISIT, [facility], [place], [address] [place] [address], [facility] [place], [place] tel:[phone] [facility] Adult Medicine Pre-OP #1 (chief complaint) Body mass index (BMI) 45.0-49.9, adultEncounte r for screening, unspecifiedPr e-op evaluationTyp e 2 diabetes mellitus with complication, with long-term current use of insulinLong term (current) use of insulinAnal fissure 0 8 [facility]. [address] [facility], [id number] [address] [place] [address], [address], [place]. tel:[phone] Psychotherap y, 45 Minutes With Patient [facility], [address] [place] [address], [facility] [place], [place] tel:[phone] [facility] Behavioral Health Cannabis use disorder, moderateGener alized Anxiety DisorderMajor depressive disorder, recurrent, moderate 0 2- 8 No Information Psychotherap y, 45 Minutes With Patient [facility], [address] [place] [address], [facility] [place], [place] tel:[phone] [facility] Behavioral Health Cannabis use disorder, moderateGener alized Anxiety Disorder May-2 5 8 No Information OFFICE/OUTPA TIENT VISIT, [facility], [place], [address] [place] [address], [address], [place] tel:[phone] [facility] Adult Medicine Cough (chief complaint) Body mass index (BMI) 45.0-49.9, adultPost-marti al dripCoughEnco unter for screening, unspecified Apr-2 3- 8 No Information Psych Dx Eval [facility], [address] [place] [address], [address], [place] tel:[phone] [facility] Behavioral Health Generalized Anxiety DisorderCanna bis use disorder, moderate 8 No Information OFFICE/OUTPA TIENT VISIT, [facility], [place], [address] [place] [address], [address], [place] tel:[phone] [facility] Adult Medicine Hemorrhoids (chief complaint) Body mass index (BMI) 45.0-49.9, adultEncounte r for screening for diabetes mellitusBleed ing internal hemorrhoids 8 Just[facility]. [address] [place] [address], [id number] [address] [place] [address], [address], [place]. tel:[phone] Psychotherap y, 30 Minutes With Patient [facility], [address] [place] [address], [facility] [place], [place] tel:[phone] [facility] Behavioral Health Anxiety disorder, unspecifiedCa nnabis dependence, uncomplicated 8 No Information OFFICE/OUTPA TIENT VISIT, [facility], [place], [address] [place] [address], [address], [place] tel:[phone] [facility] Adult Medicine Corry Follow Up of diabetes (chief complaint)Fol low Up of hypertension (chief complaint) Body mass index (BMI) 40.0-44.9, adultEncounte r for screening, unspecifiedHy pertensionHea rtburnOther dorsalgiaHemo rrhoids 8 No Information OFFICE/OUTPA TIENT VISIT, [facility], [place], [address] [place] [address], [facility] [place], [place] tel:[phone] [facility] Adult Medicine [place] Ultrasound results (chief complaint)Fol low Up of Diabetes (chief complaint)Fol low Up of Hypertension (chief complaint) Body mass index (BMI) 45.0-49.9, adultEncounte r for screening for diabetes mellitusEncou nter for screening, unspecifiedEn counter for screening for other viral diseasesType 2 diabetes mellitus without complications Hypertension 7 No Information [facility], [address] [place] [address], [address], [place] tel:[phone] [facility] Dental Encounter for dental exam and cleaning w/o abnormal findings Devin Connors. [address] [place] [address], [id number] [address] [place] [address], [id number], [place]. tel:[phone] [facility], [address] [place] [address], [address], [place] tel:[phone] [facility] Dental Encounter for screening for dental disorders No Information OFFICE/OUTPA TIENT VISIT, [facility], [place], [address] [place] [address], [address], [place] tel:[phone] [facility] Adult Medicine [place] Abdominal pain (chief complaint)Fol low Up of Diabetes (chief complaint)Fol low Up of Hypertension (chief complaint) Body mass index (BMI) 40.0-44.9, adultEncounte r for screening for diabetes mellitusUnspe cified abdominal painMorbid obesity due to excess calories No Information OFFICE/OUTPA TIENT VISIT, [facility], [place], [address] [place] [address], [address], [place] tel:[phone] [facility] Adult Medicine Corry Follow Up of Diabetes (chief complaint)Fol low Up of Hypertension (chief complaint)Jamie k pain (chief complaint) Body mass index (BMI) 45.0-49.9, adultEncounte r for screening for diabetes mellitusUnspe cified abdominal painEssential (primary) hypertensionT ype 2 diabetes mellitus without complications No Information OFFICE/OUTPA TIENT VISIT, [facility] [place], [place], [address] [place] [address], [address], [place] tel:[phone] [facility] Adult Medicine elevated blood sugar (chief complaint) Type 2 diabetes mellitus without complications Encounter for screening for diabetes mellitusBody mass index (BMI) 45.0-49.9, adultEncounte r for screening, unspecified No Information OFFICE/OUTPA TIENT VISIT, [facility] [place], [place], [address] [place] [address], [address], [place] tel:[phone] [facility] Adult Medicine diabetes (chief complaint) Encounter for screening, unspecifiedEs sential (primary) hypertensionT ype 2 diabetes mellitus without complications No Information Psychotherap y, 45 Minutes With Patient [facility], [address] [place] [address], [address], [place] tel:[phone] [facility] Behavioral Health Anxiety disorder, unspecifiedCa nnabis use, unspecified, uncomplicated No Information Psychotherap y, 30 Minutes With Patient [facility], [address] [place] [address], [address], [place] tel:[phone] [facility] Behavioral Health Anxiety disorder, unspecifiedCa nnabis use, unspecified, uncomplicated No Information OFFICE/OUTPA TIENT VISIT, [facility] [place], [place], [address] [place] [address], [address], [place] tel:[phone] [facility] Adult Medicine restless leg (chief complaint) Encounter for screening for diabetes mellitusBody mass index (BMI) 45.0-49.9, adultRestless leg syndrome No Information Psychotherap y, 45 Minutes With Patient [facility], [address] [place] [address], [address], [place] tel:[phone] [facility] Behavioral Health Anxiety disorder, unspecifiedCa nnabis dependence, uncomplicated No Information OFFICE/OUTPA TIENT VISIT, [facility] [place], [place], [address] [place] [address], [address], [place] tel:[phone] [facility] Behavioral Health anxiety (chief complaint) Anxiety disorder, unspecifiedCa nnabis dependence, uncomplicated No Information OFFICE/OUTPA TIENT VISIT, [facility] [place], [place], [address] [place] [address], [address], [place] tel:[phone] [facility] Adult Medicine Rash/frequent urination (chief complaint) Body mass index (BMI) 45.0-49.9, adultEncounte r for screening for diabetes mellitusRashH yperglycemiaE ncounter for screening, unspecified No Information [facility], [address] [place] [address], [address], [place] tel:[phone] [facility] Dental Dental caries on pit and fissure surfc penetrat into dentin 6 No Information OFFICE/OUTPA TIENT VISIT, [facility] [place], [place], [address] [place] [address], [address], [place] tel:[phone] [facility] Behavioral Health anxiety (chief complaint) Anxiety disorder, unspecifiedCa nnabis dependence, uncomplicated Dec-3 0- 6 No Information PsyTxPt And Family 45 Minutes [facility], [address] [place] [address], [facility] [place], [place] tel:[phone] [facility] Behavioral Health Anxiety disorder, unspecifiedCa nnabis dependence, uncomplicated 6 No Information OFFICE/OUTPA TIENT VISIT, [facility] [place], [place], [address] [place] [address], [facility] [place], [place] tel:[phone] [facility] Behavioral Health anxiety (chief complaint) Anxiety disorder, unspecifiedCa nnabis use, unspecified, uncomplicated 6 No Information OFFICE/OUTPA TIENT VISIT, [facility] [place], [place], [address] [place] [address], [facility] [place], [place] tel:[phone] [facility] Adult Medicine [place] Follow Up of Diabetes (chief complaint)Fol low Up of Hypertension (chief complaint)abd ominal pain (chief complaint) Encounter for immunizationE ncounter for screening for diabetes mellitusType 2 diabetes mellitus without complications HypertensionU nspecified abdominal pain 6 No Information OFFICE/OUTPA TIENT VISIT, [facility] [place], [place], [address] [place] [address], [address], [place] tel:[phone] [facility] Behavioral Health Substance abuse (chief complaint) Anxiety disorder, unspecifiedCa nnabis use, unspecified, uncomplicated Oct- 6 No Information OFFICE/OUTPA TIENT VISIT, [facility] [place], [place], [address] [place] [address], [address], [place] tel:[phone] [facility] Adult Medicine rash (chief complaint) Encounter for screening for diabetes mellitusBody mass index (BMI) 45.0-49.9, adultRash and nonspecific skin eruption Oct- 6 No Information OFFICE/OUTPA TIENT VISIT, [facility] [place], [place], [address] [place] [address], [address], [place] tel:[phone] [facility] Adult Medicine [place] Follow Up of Hypertension (chief complaint)Blo od work results (chief complaint) Type 2 diabetes mellitus without complications HypertensionB ack pain 6 No Information OFFICE/OUTPA TIENT VISIT, [facility] [place], [place], [address] [place] [address], [address], [place] tel:[phone] [facility] Behavioral Health anxiety (chief complaint) Anxiety disorder, unspecifiedCa nnabis use, unspecified, uncomplicated 6 No Information PsyTxPt And Family 45 Minutes [facility], [address] [place] [address], [address], [place] tel:[phone] [facility] Behavioral Health Anxiety disorder, unspecifiedCa nnabis dependence, uncomplicated 6 No Information OFFICE/OUTPA TIENT VISIT, [facility] [place], [place], [address] [place] [address], [address], [place] tel:[phone] [facility] Adult Medicine asthma (chief complaint)Tri age (chief complaint) Asthma exacerbation 6 No Information OFFICE/OUTPA TIENT VISIT, [facility] [place], [place], [address] [place] [address], [address], [place] tel:[phone] [facility] Behavioral Health Anxiety (chief complaint) Anxiety disorder, unspecified 6 No Information PsyTxPt And Family 45 Minutes [facility] [place] [place], [address] [place] [address], [address], [place] tel:[phone] [facility] Behavioral Health Anxiety disorder, unspecified 6 No Information OFFICE/OUTPA TIENT VISIT, [facility] [place], [place], [address] [place] [address], [address], [place] tel:[phone] [facility] Adult Medicine [place] Follow Up of Last visit (chief complaint) Unspecified abdominal pain 6 No Information OFFICE/OUTPA TIENT VISIT, [facility] [place], [place], [address] [place] [address], [address], [place] tel:[phone] [facility] Behavioral Health anxiety (chief complaint) Anxiety disorder, unspecifiedBi polar disord, crnt epsd depress, sev, w/o psych features 6 No Information PsyTxPt And Family 45 Minutes [facility], [address] [place], [address], [place] tel:[phone] [facility] Behavioral Health Anxiety disorder, unspecifiedBi polar disord, crnt epsd depress, sev, w/o psych features June-0 2-201 6 No Information OFFICE/OUTPA TIENT VISIT, [facility], [address] [place], [address], [place] tel:[phone] [facility] Behavioral Health anxiety (chief complaint) Cannabis dependence, uncomplicated Major depressive disorder, recurrent, moderate Apr-1 3-201 6 No Information PsyTXPt And Family 60 Min [facility], [address] [place], [address], [place] tel:[phone] [facility] Behavioral Health Cannabis dependence, uncomplicated Major depressive disorder, recurrent, moderate Apr-1 1- 6 No Information PsyTxPt And Family 45 Minutes [facility], [address] [place] [address], [address], [place] tel:[phone] [facility] Behavioral Health anxiety (chief complaint) Bipolar disord, crnt epsd depress, sev, w/o psych featuresCanna bis use, unspecified, uncomplicated Mar-3 1- 6 No Information Psych Diag Eval W/Med Serv [facility], [address] [place], [address], [place] tel:[phone] [facility] Behavioral Health Initial Assessment (chief complaint) Bipolar disord, crnt epsd depress, sev, w/o psych featuresCanna bis use, unspecified, uncomplicated Mar-3 0-201 6 No Information PsyTxPt And Family 45 Minutes [facility], [address] [place], [address], [place] tel:[phone] [facility] Behavioral Health anxiety (chief complaint) Bipolar disord, crnt epsd depress, sev, w/o psych featuresCanna bis use, unspecified, uncomplicated Mar-2 3-201 6 No Information OFFICE/OUTPA TIENT VISIT, [facility] [place], [place], [address] [place], [address], [place] tel:[phone] [facility] Adult Medicine [place] MRI results (chief complaint) 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 Apr- 6 No Information PsyTxPt And Family 45 Minutes [facility], [address] [place], [address], [place] tel:[phone] [facility] Behavioral Health anxiety (chief complaint) Bipolar disord, crnt epsd depress, sev, w/o psych featuresCanna bis use, unspecified, uncomplicated Apr- 6 No Information PsyTxPt And Family 45 Minutes [facility], [address] [place], [address], [place] tel:[phone] [facility] Behavioral Health anxiety (chief complaint) Bipolar disord, crnt epsd depress, sev, w/o psych featuresCanna bis use, unspecified, uncomplicated 6 No Information PsyTXPt And Family 60 Min [facility], [address] [place], [address], [place] tel:[phone] [facility] Behavioral Health Bipolar disord, crnt epsd depress, sev, w/o psych featuresCanna bis use, unspecified, uncomplicated Mar- 6 No Information OFFICE/OUTPA TIENT VISIT, [facility] [place], [place], [address] [place], [address], [place] tel:[phone] [facility] Adult Medicine [place] Lower back pain (chief complaint)Med refill (chief complaint) Dorsalgia, unspecified 6 No Information OFFICE/OUTPA TIENT VISIT, [facility] [place], [place], [address] [place] [address], [address], [place] tel:[phone] [facility] Adult Medicine [place] Follow Up of Last visit (chief complaint) Other dorsalgiaUnsp ecified abdominal pain 6 No Information Psych Dx Eval [facility], [address] [place], [address], [place] tel:[phone] [facility] Behavioral Health Initial Assessment (chief complaint) Bipolar disord, crnt epsd depress, sev, w/o psych featuresCanna bis use, unspecified, uncomplicated 6 Helder Letriece. [facility], [id number] [address] [place] [address], [id number], . tel:[phone] OFFICE/OUTPA TIENT VISIT, [facility], [place], [address] [place] [address], [address], [place] tel:[phone] [facility] Adult Medicine Results (chief complaint)Jamie k pain (chief complaint) Pain in right knee 0 6 No Information [facility], [address] [place] [address], [address], [place] tel:[phone] [facility] Adult Medicine [place] Blood work results (chief complaint)Jamie k pain (chief complaint) PrediabetesOt her dorsalgia 5 No Information OFFICE/OUTPA TIENT VISIT, [facility], [place], [address] [place] [address], [address], [place] tel:[phone] [facility] Adult Medicine Follow Up of Last visit (chief complaint)BP check (chief complaint) Morbidly overweightAnk le pain 5 No Information OFFICE/OUTPA TIENT VISIT, [facility] [place], [place], [address] [place] [address], [address], [place] tel:[phone] [facility] Adult Medicine [place] Follow Up of Last visit (chief complaint) abdominal painAnkle pain 5 No Information OFFICE/OUTPA TIENT VISIT, [facility] [place], [place], [address] [place] [address], [address], [place] tel:[phone] [facility] Adult Medicine [place] Follow Up of ER with pain (chief complaint) abdominal painBack pain 5 No Information OFFICE/OUTPA TIENT VISIT, [facility] [place], [place], [address] [place] [address], [address], [place] tel:[phone] [facility] Adult Medicine [place] Blood work results (chief complaint)X ray results (chief complaint) Liver and spleen enlargement - 5 No Information OFFICE/OUTPA TIENT VISIT, [facility] [place], [place], [address] [place] [address], [address], [place] tel:[phone] [facility] Adult Medicine [place] lab results (chief complaint) Prediabetic nonclinical diabetesVitam in D deficiencyAbn ormal function test of the liver Fe 5 No Information OFFICE/OUTPA TIENT VISIT, [facility] [place], [place], [address] [place] [address], [address], [place] tel:[phone] [facility] Adult Medicine [place] Med refill (chief complaint)Fol low Up of ER with stomach pain (chief complaint)jamie k pain (chief complaint)hyp ertension (chief complaint) abdominal painBack painHypertens ion 5 No Information OFFICE/OUTPA TIENT VISIT, [facility] [place], [place], [address] [place], [address], [place] tel:[phone] [facility] Adult Medicine [place] Med refill Tramadol (chief complaint) Issue of repeat prescriptions 4 No Information [facility], [address] [place] [address], [address], [place] tel:[phone] [facility] Behavioral Health Cannabis dependence, unspecified usePosttrauma tic stress disorderMajor depressive affective disorder, recurrent episode, moderate degree 4 No Information OFFICE/OUTPA TIENT VISIT, [facility] [place], [place], [address] [place] [address], [address], [place] tel:[phone] [facility] Adult Medicine [place] Back and neck pain (chief complaint)Med refill (chief complaint) Knee painBack painIssue of repeat prescriptions 4 No Information OFFICE/OUTPA TIENT VISIT, [facility] [place], [place], [address] [place] [address], [address], [place] tel:[phone] [facility] Adult Medicine [place] c/o right side lower back pain (chief complaint) Back pain 4 No Information OFFICE/OUTPA TIENT VISIT, [facility] [place], [place], [address] [place] [address], [address], [place] tel:[phone] [facility] Adult Medicine [place] Med refill (chief complaint) Unspecified internal derangement of kneeEncounter for administrativ e purposeIssue of repeat prescriptions 4 No Information PsyTXPT And Family 30 Minutes [facility], [address] [place] [address], [address], [place] tel:[phone] [facility] Behavioral Health AnxietyDrug-i nduced mood disorderPostt raumatic stress disorderMajor depressive affective disorder, recurrent episode, moderate degreeCannabi s dependence, unspecified use 3- 4 No Information OFFICE/OUTPA TIENT VISIT, EST [facility], [address] [place] [address], [address], [place] tel:[phone] [facility] Behavioral Health anxiety (chief complaint) AnxietyCannab is abuseDrug-ind uced mood disorderPostt raumatic stress disorderMajor depressive affective disorder, recurrent episode, moderate degree 0 1- 4 No Information [facility], [address] [place] [address], [address], [place] tel:[phone] [facility] Adult Medicine [place] Med refill (chief complaint)Vom iting (chief complaint) No Information 4 No Information PsyTXPT And Family 30 Minutes [facility], [address] [place] [address], [facility] [place], [place] tel:[phone] [facility] Behavioral Health No Information 0 2 4 No Information Psych Diag Eval W/Med Serv [facility], [address] [place] [address], [address], [place] tel:[phone] [facility] Behavioral Health depression (chief complaint) Major depressive affective disorder, recurrent episode, moderate degreeCannabi s dependence, unspecified useAnxietyPos ttraumatic stress disorderDrug- induced mood disorder 4 No Information PsyTxPt And Family 45 Minutes [facility], [address] [place] [address], [address], [place] tel:[phone] [facility] Behavioral Health No Information 0 4 No Information [facility], [address] [place] [address], [address], [place] tel:[phone] [facility] Adult Medicine [place] No Information 0 4 No Information PsyTxPt And Family 45 Minutes [facility], [address] [place] [address], [address], [place] tel:[phone] [facility] Behavioral Health No Information Apr-2 4 No Information Psych Dx Eval [facility], [address] [place] [address], [address], [place] tel:[phone] [facility] Behavioral Health depression (chief complaint) Major depressive affective disorder, recurrent episode, moderate degreeCannabi s dependence, unspecified useAnxietyPos ttraumatic stress disorder 4 No Information OFFICE/OUTPA TIENT VISIT, [facility] [place], [place], [address] [place], [address], [place] tel:[phone] [facility] Adult Medicine [place] Med refill (chief complaint) GENERALIZED PAIN 4 No Information OFFICE/OUTPA TIENT VISIT, [facility] [place], [place], [address] [place], [address], [place] tel:[phone] [facility] Adult Medicine [place] Pain med refill (chief complaint) Backache 4 No Information OFFICE/OUTPA TIENT VISIT, [facility] [place], [place], [address] [place], [address], [place] tel:[phone] [facility] Adult Medicine [place] Pain medication (chief complaint) BackacheSpasm of muscleUnspeci fied internal derangement of knee 3 No Information OFFICE/OUTPA TIENT VISIT, [facility] [place], [place], [address] [place] [address], [address], [place] tel:[phone] [facility] Adult Medicine [place] back pain (chief complaint) BackacheSpasm of muscle 3 No Information PREV VISIT, [facility], AGE 18-39 [facility], [address] [place] [address], [address], [place] tel:[phone] [facility] Adult Medicine [place] Physical (chief complaint) EXAM EARS & HEARING NECRoutine Medical ExamInfluenza VaccineBackac heObesity, MorbidNEED FOR PROPHYLACTIC VACCINATION WITH COMBINED DIPHTHERIA-TE TANUS-PERTUSS IS (DTP) (DTAP) VACCINE 3 No Information [facility], [address] [place], [address], [place] tel:[phone] [facility] Dental No Information 3 Mika Cantor. [facility], [id number] [address] [place] [address], [id number], [place]. tel:[phone] Referring Provider: Devaughn Brennan, [facility] [id number] [facility], [place], [address] . tel:[phone] [facility], [address] [place] [address], [address], tel:[phone] Conversion URINARY TRACT INFECTIONHELI COBACTER PYLORI (H. PYLORI) INFECTION 0 No Information [facility], [address] [place] [address], [facility] [place], [place] tel:[phone] [facility] Adult Medicine No Information 0 No Information [facility], [address] [place] [address], [facility] [place], [place] tel:[phone] Conversion abdominal painESOPHAGEA L REFLUXexposed to venereal disease 0 No Information NEW Level 3 - Detailed [facility], [address] [place] [address], [facility] [place], tel:[phone] [facility] Adult Medicine No Information 0 No [...] preservative free, 3 years and older Afluria [id number] administered Source: New Immu nization Record Influenza, seasonal, injectable administered Source: New Immuniza tion Record Influenza, seasonal, injectable administered Source: New Immuniza tion Record Tdap administered Source: New Imm unization Record flu (split) preservative magdi e, 3 yrs or older administered Source: New Immuniza tion Record Payers Payer name Insurance type Covered alliance party ID Authoranitha black(s) IAN Szymanski [id number] IAN Ramirez A [id number] IAN Ramirez A [id number] IAN Ramirez A [id number] IAN Szymanski [id number] Social History Type Description Quantity Date Captured [...] cessation counseling completed Referral Ordered: Referrals: Location: [facility] Podiatry ordered Referral Ordered: Referrals: Home [...] participants): Patient, Dr. Ryan@ UTI and Kidney Drlveh89/29/20 - was treated for UTI and kidney [...] No med changes for now. Advised to Gjnbj7yx post meal sugars and not random. May consider decreasing Lantus. Check A1C.06/16/17 - CBG 150. Labs A1C 5.9. Hold Metformin the morning of xolillk23/26/18 - POC A1C 6.603/07/29 - FS 227. [...] stress. will decrease Tresiba to 44 units@ Onmorgnbakha66/29/20 - has hard BM every 2-3 days and over last month having blood with first BM. Not very painful. She has hx of fissure with surgery to repair it. A/P = Chronic constipation. Start Linzess. 145mcg. F/u in 3 weeks09/16/19 - with Linzess, having daily BMs and not straining.@ Breast tniqtutwwlqxto53/29/20 - noted on both breasts on CT scan. Will do diagnostic Mammogram. f/u in 3 weeks09/16/19 - Mammo on 06/22 was normal. @ Lung wbquic88/29/20 - noted on CT of abdomen. No Cough or increased SOB form baseline. Will do CXR f/u in 3 weeks.09/16/19 - x-ray was normal @ Lymphadentitis?12/25/18 - Recent Strep throat and given PCN but still has sore throat. Augmentin x 5 day for lymphadentitis?@ Jcrxedwkq21/13/19 - takes a few Fioricet Plus Excedrin to abort headaches. Headaches occr multiple times a week and taking abortive meds every1-2 days. Poor sleep. A/P = Amitriptyline HS. aim to reduce abortive med use. @ Chronic Low back pain with Radicular symptoms + Large Bgmkve79/07/18 - reports hx of low back pain with pain traveling down back of leg to feet. Taking lyrica 50mg BID. A/P = Need to review imaging (pt reports disk problems) and consider titrating Gzbeqh42/21/18 - MRI showing L4-L5 Degenerative Changes. Moderate Canal Stenosis and Neural foraminal stenosis. Increase to 150mg lyrica. M.M. provider info given.04/15/18 - Pain i still very bad. Radiates into legs with numbness. Unable to stand or walk for too long without pain. No saddle anesthesias. A/p = Breast Surgeon Mlgryhhn13/10/19 - Back pain stills severe. Appt in [...] without medication. Will get BP machine from [employer] Ivtlzczc08/13/19 - 117/77. @ Central Abdominal Pain04/15/18 - For along time has episode central abdominal pain. Noticed bulge in center of stomach. Was told she has hernia in the past. Has central wall defect on exam A/p = Likely Symptomatic abdominal hernia. Will refer to gen surg in near future.@ Dizziness - light ipxltdkzr08/23//18 other provider - Patient presents to the [...] imodium RX and reviewing low FODMAP diet@ Qisydrr65/03/18 - She went to bariatric seminar, but there was a mixup with getting a bariatric appt. Has chronic back pain, Right Knee OA HTN, DM, Fatty Liver. A/P Will refer again in the future.06/30/17 - almost completed [facility] program but there was a problem with 2 missed nutrition appt (patient tells me it was the programs fault due to scheduling). She went to but the wrong referral was sent to them.@ Anal Tzxytsv73/03/18 - Patient having surgery to sphincter on [...] No med changes for now. Advised to Xwhoe9sn post meal sugars and not random. May consider decreasing Lantus. Check A1C.06/16/17 - CBG 150. Labs A1C 5.9. Hold Metformin the morning of tpxomfl28/26/18 - POC A1C 6.603/07/29 - FS 227. [...] 60 units. Start Ozempic 0.5mg weekly. @ Lbxrndbdfifp60/29/20 - has hard BM every 2-3 days and over last month having blood with first BM. Not very painful. She has hx of fissure with surgery to repair it. A/P = Chronic constipation. Start Linzess. 145mcg. F/u in 3 weeks@ Breast wdtphbtdreavgo54/29/20 - noted on both breasts on CT scan. Will do diagnostic Mammogram. f/u in 3 weeks@ Lung /29/20 - noted on CT of abdomen. No Cough or increased SOB form baseline. Will do CXR f/u in 3 weeks.@ Lymphadentitis?12/25/18 - Recent Strep throat and given PCN but still has sore throat. Augmentin x 5 day for lymphadentitis?@ Rhxualimp64/13/19 - takes a few Fioricet Plus Excedrin to abort headaches. Headaches occr multiple times a week and taking abortive meds every1-2 days. Poor sleep. A/P = Amitriptyline HS. aim to reduce abortive med use. @ Chronic Low back pain with Radicular symptoms + Large Yxsmfn88/07/18 - reports hx of low back pain with pain traveling down back of leg to feet. Taking lyrica 50mg BID. A/P = Need to review imaging (pt reports disk problems) and consider titrating Qngohd09/21/18 - MRI showing L4-L5 Degenerative Changes. Moderate Canal Stenosis and Neural foraminal stenosis. Increase to 150mg lyrica. M.M. provider info given.04/15/18 - Pain i still very bad. Radiates into legs with numbness. Unable to stand or walk for too long without pain. No saddle anesthesias. A/p = Breast Surgeon Vtxczpri60/10/19 - Back pain stills severe. Appt in [...] without medication. Will get BP machine from [employer] Bryfolqe28/13/19 - 117/77. @ Central Abdominal Pain04/15/18 - For along time has episode central abdominal pain. Noticed bulge in center of stomach. Was told she has hernia in the past. Has central wall defect on exam A/p = Likely Symptomatic abdominal hernia. Will refer to gen surg in near future.@ Dizziness - light fgmdppott61/23//18 other provider - Patient presents to the [...] imodium RX and reviewing low FODMAP diet@ Ynfclqm38/03/18 - She went to bariatric seminar, but there was a mixup with getting a bariatric appt. Has chronic back pain, Right Knee OA HTN, DM, Fatty Liver. A/P Will refer again in the future.06/30/17 - almost completed [facility] program but there was a problem with 2 missed nutrition appt (patient tells me it was the programs fault due to scheduling). She went to but the wrong referral was sent to them.@ Anal Fdpruwt77/03/18 - Patient having surgery to sphincter on 06/19/17. @ Histories Allergies: Tylenol (liver toxicity)SurgHx: Cholecystectomy, Tubal ligation, x3, Lateral Internal Sphincterotomy MHx: DM, HTN, PTSD, Anxiety/Depression, Chronic Back Pain, Right Knee Pain, Anal Fissure, Fatty Liver (AGYTAN), ObesityFH: Diabetes. M- HTN, Anxiety, Depression. Aunt - Breast CancerRCRI: 1METs: 4-10.EKG: NSR, non-specific T-wave changeOSA: (Y/N/Risk) - NoneSmokin-cig a day. Quit in the past. Started at 18Alcohol: NoneIllicit drugs: Smokes Marijuana Daily for pain (would consider medical MarijuanaRESOLVED PROBLEM follow up @ Lymphadentitis ?12/25/18 - Recent Strep throat and given PCN but still has sore throat. Augmentin x 5 day for lymphadentitis?@ Bqtmwsfpc01/13/19 - takes a few Fioricet Plus Excedrin to abort headaches. Headaches occr multiple times a week and taking abortive meds every1-2 days. Poor sleep. A/P = Amitriptyline HS. aim to reduce abortive med use. @ Chronic Low back pain with Radicular symptoms + Large Sewgrc01/07/18 - reports hx of low back pain with pain traveling down back of leg to feet. Taking lyrica 50mg BID. A/P = Need to review imaging (pt reports disk problems) and consider titrating Ivdzvq81/21/18 - MRI showing L4-L5 Degenerative Changes. Moderate Canal Stenosis and Neural foraminal stenosis. Increase to 150mg lyrica. M.M. provider info given.04/15/18 - Pain i still very bad. Radiates into legs with numbness. Unable to stand or walk for too long without pain. No saddle anesthesias. A/p = Breast Surgeon Psjpnaaq91/10/19 - Back pain stills severe. Appt in [...] No med changes for now. Advised to Dtjss7qi post meal sugars and not random. May consider decreasing Lantus. Check A1C.06/16/17 - CBG 150. Labs A1C 5.9. Hold Metformin the morning of subyuam70/26/18 - POC A1C 6.603 - FS 227. [...] without medication. Will get BP machine from [employer] Snoicdgh47/13/19 - 117/77. @ Central Abdominal Pain04/15/18 - For along time has episode central abdominal pain. Noticed bulge in center of stomach. Was told she has hernia in the past. Has central wall defect on exam A/p = Likely Symptomatic abdominal hernia. Will refer to gen surg in near future.@ Dizziness - light edlqyuvrz76/23//18 other provider - Patient presents to the [...] imodium RX and reviewing low FODMAP diet@ Varxpqq31/03/18 - She went to bariatric seminar, but there was a mixup with getting a bariatric appt. Has chronic back pain, Right Knee OA HTN, DM, Fatty Liver. A/P Will refer again in the future.06/30/17 - almost completed [facility] program but there was a problem with 2 missed nutrition appt (patient tells me it was the programs fault due to scheduling). She went to but the wrong referral was sent to them.@ Anal Rtjqwcq23/03/18 - Patient having surgery to sphincter on [...] right side06/10/18 - was in EN in [facility]. for Sialadenitis that started the previous friday. Given Augmentin and advised to use sour candy and lemon to help. Pain has greatly improved but not back to baseline yet. Advised pt to complete Abx and c/w sour and lemon. routine F/u @ Hospital F/u f or Sialadenitis on right side06/10/18 - was in EN in [facility]. for Sialadenitis that started the previous friday. Given Augmentin and advised to use sour candy and lemon to help. Pain has greatly improved but not back to baseline yet. Advised pt to complete Abx and c/w sour and lemon.@ Chronic Low back pain with Radicular symptoms + Large Zhedib80/07/18 - reports hx of low back pain with pain traveling down back of leg to feet. Taking lyrica 50mg BID. A/P = Need to review imaging (pt reports disk problems) and consider titrating Tkinil16/21/18 - MRI showing L4-L5 Degenerative Changes. Moderate Canal Stenosis and Neural foraminal stenosis. Increase to 150mg lyrica. M.M. provider info given.04/15/18 - Pain i still very bad. Radiates into legs with numbness. Unable to stand or walk for too long without pain. No saddle anesthesias. A/p = Breast Surgeon Zapclwls27/10/19 - Back pain stills severe. Appt in [...] without medication. Will get BP machine from [facility]@ DM Type - CBG 170. Fasting 80-90. Evening CBG around 170-190. Last a1c 5.9 (02/2017). Patient complaint with medications as prescribed. A/P = Well Controlled DM. No med changes for now. Advised to Lxxdj7dr post meal sugars and not random. May consider decreasing Lantus. Check A1C.06/16/17 - CBG 150. Labs A1C 5.9. Hold Metformin the morning of gghmiur00/26/18 - POC A1C 6.603/07/29 - FS 227. [...] imodium RX and reviewing low FODMAP diet@ Qbarwuy54/03/18 - She went to bariatric seminar, but there was a mixup with getting a bariatric appt. Has chronic back pain, Right Knee OA HTN, DM, Fatty Liver. A/P Will refer again in the future.06/30/17 - almost completed [facility] program but there was a problem with 2 missed nutrition appt (patient tells me it was the programs fault due to scheduling). She went to but the wrong referral was sent to them.@ Anal Otxfwnh30/03/18 - Patient having surgery to sphincter on [...] Daily for pain (would consider medical Marijuana palpitations It occurs occasi onally. The problem is unchanged. Associated symptoms include chest pain and dizziness. Dizziness The patient desc ribes it as (an) imbalance. It occurs while bending and exercising. Symptom is aggravated by bending. Associated symptoms include chest pain. fatigue The patient pres ents with back pain, fatigue and muscle weakness. Risk factors include depression and obesity. The symptoms are aggravated by exercise, exertion, pain and stress. routine f/u Requesting help with transportation - will sign [employer] new walker since current one has broken breaks. I adjusted the height for her todayRequest help at home - will order VN and MEAL GRINDER TENDER@ Chronic Low back pain with Radicular symptoms + Large Eaocky70/07/18 - reports hx of low back pain with pain traveling down back of leg to feet. Taking lyrica 50mg BID. A/P = Need to review imaging (pt reports disk problems) and consider titrating Ipiquh48/21/18 - MRI showing L4-L5 Degenerative Changes. Moderate [...] without medication. Will get BP machine from [facility]@ DM Type - CBG 170. Fasting 80-90. Evening CBG around 170-190. Last a1c 5.9 (02/2017). Patient complaint with medications as prescribed. A/P = Well Controlled DM. No med changes for now. Advised to Fgrpo9uq post meal sugars and not random. May consider decreasing Lantus. Check A1C.06/16/17 - CBG 150. Labs A1C 5.9. Hold Metformin the morning of ijhwisz33/26/18 - POC A1C 6.603/07/29 - FS 227. POC A1C 6.5. Does not eat well or often. Has BM with every meals. Frequent feeling of low blood surgar and has to take candy. Drink lot of soda (ie willima lina in office today). A/p = Overall [...] imodium RX and reviewing low FODMAP diet@ Rhvupqp28/03/18 - She went to bariatric seminar, but there was a mixup with getting a bariatric appt. Has chronic back pain, Right Knee OA HTN, DM, Fatty Liver. A/P Will refer again in the future.06/30/17 - almost completed [facility] program but there was a problem with 2 missed nutrition appt (patient tells me it was the programs fault due to scheduling). She went to but the wrong referral was sent to them.@ Anal Xuwoimr72/03/18 - Patient having surgery to sphincter on [...] Arm Pain @ Dizziness - li ght mdmsrfyzv00/23//18 other provider - Patient presents to the [...] No med changes for now. Advised to Losfd8fx post meal sugars and not random. May consider decreasing Lantus. Check A1C.06/16/17 - CBG 150. Labs A1C 5.9. Hold Metformin the morning of gomxkla80/21/18 - CBG 138. 11/05/17 - FS A1C 6.6@ Chronic Low back pain with Radicular dubeemfm14/07/18 - reports hx of low back pain with pain traveling down back of leg to feet. Taking lyrica 50mg BID. A/P Need to review imaging (pt reports disk problems) and consider titrating Degefy96/21/18 - L4-L5 Degenerative Changes. Moderate Canal Stenosis [...] imodium RX and reviewing low FODMAP diet@ Xlqzlrw96/03/18 - She went to bariatric seminar, but there was a mixup with getting a bariatric appt. Has chronic back pain, Right Knee OA HTN, DM, Fatty Liver. A/P Will refer again in the future.06/30/17 - almost completed [facility] program but there was a problem with 2 missed nutrition appt (patient tells me it was the programs fault due to scheduling). She went to but the wrong referral was sent to them.@ Anal Zynsjnl68/03/18 - Patient having surgery to sphincter on [...] outside of the home.EKG WNL in [facility] negative TRIAGE 10/02/2017 @ 4:3 0 PMPt presenting to AM information receptionist with complaints of dizziness. 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 Taking lyrica 50mg BID. A/P Need to review imaging (pt reports disk problems) and consider titrating Wxwbmb85/21/18 - L4-L5 Degenerative Changes. Moderate Canal Stenosis [...] imodium RX and reviewing low FODMAP diet@ Yrdubrr58/03/18 - She went to bariatric seminar, but there was a mixup with getting a bariatric appt. Has chronic back pain, Right Knee OA HTN, DM, Fatty Liver. A/P Will refer again in the future.06/30/17 - almost completed [facility] program but there was a problem with [...] No med changes for now. Advised to Obxug4rh post meal sugars and not random. May consider decreasing Lantus. Check A1C.06/16/17 - CBG 150. Labs A1C 5.9. Hold Metformin the morning of /21/18 - CBG 138. @ Anal Rwkpxgm29/03/18 - Patient having surgery to sphincter on 06/19/17. @ Histories A/P: Patient is low/moderate risk for a low Risk procedure. She can proceed with surgery as planned and is medically optimized. Her labs are within normal limits for surgery. Hold Metformin Morning of surgery.Procedure: Lateral Internal Sphincterotomy @ [facility] with Dr. Josh Singleton, on 06/19/17Anesthesia [...] Morning of surgery.Procedure: Lateral Internal Sphincterotomy @ [facility] with Dr. Josh Singleton, on 06/19/17Anesthesia [...] pain (would consider medical Marijuana @ Anal Geidvvx37/03/18 - Patient having surgery to sphincter on 06/19/17. @ DM Type - CBG 170. Fasting 80-90. Evening CBG around 170-190. Last a1c 5.9 (02/2017). Patient complaint with medications as prescribed. A/P = Well Controlled DM. No med changes for now. Advised to Qrkme6ud post meal sugars and not random. May consider decreasing Lantus. Check A1C.06/16/17 - CBG 150. Labs A1C 5.9. Hold Metformin the morning of surgery@ Chronic Low back pain with Radicular drmlzyti01/07/18 - reports hx of low back pain with pain traveling down back of leg to feet. Taking lyrica 50mg BID. A/P Need to review imaging (pt reports disk problems) and consider titrating Lyrica@ Nkyhvsp45/03/18 - She went to bariatric seminar, but [...] medically optimized. Procedure: Lateral Internal Sphincterotomy @ [facility] with Dr. Josh Singleton, on 06/19/17Anesthesia [...] pain (would consider medical Marijuana @ Anal Pzgkkez03/03/18 - Patient having surgery to sphincter on 06/19/17. @ DM Type - CBG 170. Fasting 80-90. Evening CBG around 170-190. Last a1c 5.9 (02/2017). Patient complaint with medications as prescribed. A/P = Well Controlled DM. No med changes for now. Advised to Tfggm1wj post meal sugars and not random. May consider decreasing Lantus. Check A1C.@ Vilnvoh58/03/18 - She went to bariatric seminar, but [...] blood sugar She was see n at [facility] on Apr 26. Her hemoglobin [...] and she is breathing more comfortably, notified information receptionist that this patient has to be [...] presents with anxious/fearful thoughts and excessive worry. Med refill Lower back pain Continue to have lower back pain, states is increasing - radiating to both legs Follow Up of Last visit Continue s [...] consistent with fatty change. Enlarg liver measuring 25.4xlw894tso77.1; Splenomegaly measuring 15.8 cm in greatest dimension [...] pain. Has 1st PT appt 01/11. Physical [facility] medical gavin little at [facility]: 2009. Moved to [place]. Returned to [place] 6 months ago. Is living in [place].Notes untreated depression, anxiety and high blood pressure [...] wearing a brace until recently.Health Maintenance1) Pap: [id number]) dental: [id number]) eye: 05/2012 Functional Status Date Functional Assessmen [...] 2:45 pm to see Dalia in the [place] Office.??? Start Lantus 20 units every evening [...] 1 week Related to Restless leg syndrome Dietary management e ducation, guidance, and counseling Related to Body mass index (BMI) 45.0-49.9, adult Weight monitoring Related to Bod y mass index (BMI) 45.0-49.9, adult 1. STOP [...] electronically to your pharmacy ([facility] [place]). ??? Return to the Clinic if you [...] to Type 2 diabetes mellitus without complications chronic back pain - pending appt with neurosurgery Related to Back pain Control hypertension - no medication adjustment at this time Related to Hypertension lab orderedabd. MRI ordered Rela dagoberto to [...]
[2024-06-18 17:57] LABS: Alanine Aminotransferase 35 U/L (0-31); Albumin Level 3.5 g/dL (3.5-5.0); Anion Gap 13 (12-20); Aspartate Amino Transferase 46 U/L (5-31); Bilirubin Direct 0.4 mg/dL (0.0-0.5); Bilirubin Total 1.1 mg/dL (0.0-1.0); Blood Urea Nitrogen 9 mg/dL (9-16); Calcium 9.3 mg/dL (8.4-10.2); Carbon Dioxide 22 mmol/L (22-29); Chloride 100 mmol/L (96-108); Estimated Glomerular Filt Rate 40; Glucose Random 535 mg/dL (60-115); Potassium 3.2 mmol/L (3.3-5.1); Sodium 132 mmol/L (135-145); Total Protein 8.1 g/dL (6.5-8.0)
[2024-06-18 19:36] LABS: Alkaline Phosphatase 270 U/L (39-117)
== END 2024-06-18 13:47 | disposition home or self-care (01) ==
LOC: HO.HHCL 13:46
PROVIDERS: Visit Provider Internal Medicine
DX: M25.561 Pain in right knee (principal); G89.29 Other chronic pain; E87.6 Hypokalemia; K74.69 Other cirrhosis of liver
CPT/HCPCS: 36415; 73564; 80048; 80076

== ENCOUNTER → 2024-06-18 14:05 | Outpatient (BNV) | payer MEDICAID, SELFPAY | PROVIDERS: Visit Provider Radiology Diagnostic Radiology | DX: M25.461 Effusion, right knee (principal); M17.11 Unilateral primary osteoarthritis, right knee | CPT/HCPCS: 73564 ==